=== PATIENT | female | born 1940 | race Caucasian/White ===

== ENCOUNTER 2018-06-23 00:57 | Outpatient (CLI) | payer MEDICARE, MEDICAID, SELFPAY ==
--- NOTE | 2018-06-23 12:46 | DI.US_ITS ---
SYMPTOM/DIAGNOSIS: LOCALIZED SWELLING, MASS RT LOWER LEG, R22.41 SOFT TISSUE ULTRASOUND RIGHT LOWER EXTREMITY: An area of swelling was scanned. No mass, cyst or venous varicosities are seen. There is some edema in the subcutaneous fat. IMPRESSION: Nonspecific subcutaneous edema. No focal mass or fluid collection is seen.
== END 2018-06-23 01:17 ==
PROVIDERS: PCP Family Medicine; Visit Provider Family Medicine
DX: R22.41 Localized swelling, mass and lump, right lower limb (principal); R60.9 Edema, unspecified
CPT/HCPCS: 76881

== ENCOUNTER 2019-03-01 00:43 | Outpatient (CLI) | payer MEDICARE, MEDICAID, SELFPAY ==
--- NOTE | 2019-03-01 11:00 | DI.CTLCSR_ITS ---
SYMPTOM/DIAGNOSIS: LUNG NODULE, R91.8, H/O TOBACCO ABUSE, Z87.[address] FOR LUNG CANCER SCREENING: Comparison is made with 02/11/18. The heart size is normal. The aorta is normal in diameter. Coronary artery calcifications are seen. There are underlying mild emphysematous changes. There has been interval increase in size of a previously noted lateral right upper lobe nodule, now measuring 7 by 5 mm. compared with 4 mm. in diameter on the previous exam. The right lower lobe nodule is partially obscured by linear atelectasis. No new nodules are seen. There are no infiltrates or effusions. No adenopathy is seen. There are old right posterior rib fractures. There is a new compression fracture of the inferior endplate of T 8. There are no findings to suggest underlying pathologic lesion. IMPRESSION: 1. Lung Rads, category 4A, growing 7 mm. nodule in the right upper lobe. A 3 month follow up exam is recommended. 2. New T 8 compression fracture. Lung-RAD Category: Lung RADS Category 4A- Suspicious
--- NOTE | 2019-03-01 11:45 | DI.RAD_ITS ---
SYMPTOM/DIAGNOSIS: NECK AND BACK PAIN, M54.2, FELL CERVICAL SPINE: There is no evidence of fracture or subluxation. There are degenerative disc changes and facet degenerative changes. There is no definite neural foraminal narrowing. IMPRESSION: Degenerative changes, greatest of the facet joints. THORACIC SPINE: Comparison is made with chest CT performed earlier the same day as well as chest xray dated 02/21/18. There is a compression fracture of the inferior endplate of T 8 which is new when compared with the previous chest xray. The remaining vertebral bodies are well maintained in height. There are endplate osteophytes and slight scoliosis. IMPRESSION: Moderate compression fracture of T 8 which is new when compared with previous chest xray from 2018.
== END 2019-03-01 01:03 ==
PROVIDERS: PCP Family Medicine; Visit Provider Family Medicine
DX: Z12.2 Encounter for screening for malignant neoplasm of respiratory organs (principal); R91.1 Solitary pulmonary nodule; M48.54XA Collapsed vertebra, not elsewhere classified, thoracic region, initial encounter for fracture; Z87.891 Personal history of nicotine dependence; M54.2 Cervicalgia; M54.6 Pain in thoracic spine; M47.812 Spondylosis without myelopathy or radiculopathy, cervical region; M50.30 Other cervical disc degeneration, unspecified cervical region
CPT/HCPCS: G0297; 72050; 72072

== ENCOUNTER 2019-09-02 11:37 | Outpatient (REF) | payer MEDICARE, MEDICAID, SELFPAY ==
[2019-09-02 19:25] LABS: HCT 39.5 % (36.0-46.0); HGB 12.3 g/dL (12.0-15.5); Mean Corp. HGB Concentration 31.1 g/dL (32.0-36.0); Mean Corpuscular Hemoglobin 27.5 pg (27.0-33.0); Mean Corpuscular Volume 88.2 fL (80-95); Mean Platelet Volume 10.1 fL (8.0-11.0); Platelet Count 446 x1000/uL (130-400); RBC 4.48 m/cumm (4.00-5.20); RBC Distribution Width 14.9 % (11.7-14.6); White Blood Cell Count 8.73 k/cumm (4.4-10.8)
[2019-09-02 19:36] LABS: ALT 16 U/L (14-59); AST 12 U/L (15-37); Albumin 3.7 g/dL (3.4-5.0); Alkaline Phosphatase 137 U/L (46-116); Anion Gap 8.9 mmol/L (3-11); BUN 13 mg/dL (7-18); Bilirubin, Total 0.3 mg/dL (0.2-1.0); CO2 31.1 mmol/L (21.0-32.0); CREATININE 0.64 mg/dL (0.55-1.02); Calcium 9.4 mg/dL (8.5-10.1); Chloride 100 mmol/L (98-107); Glucose 94 mg/dL (74-106); Potassium 4.8 mmol/L (3.5-5.1); Sodium 140 mmol/L (136-145); Total Protein 6.9 g/dL (6.4-8.2)
== END 2019-09-02 11:57 ==
LOC: NCHCN 11:37
PROVIDERS: PCP Family Medicine; Visit Provider Family Medicine
DX: R27.0 Ataxia, unspecified (principal); R19.7 Diarrhea, unspecified; E53.8 Deficiency of other specified B group vitamins; Z91.81 History of falling
CPT/HCPCS: 80053; 85027

== ENCOUNTER 2020-05-03 17:41 | Observation (INO) | payer MEDICARE, MEDICAID, SELFPAY ==
[2020-05-03] VITALS (29 sets, daily range): BP systolic 135–205; BP diastolic 89–120; PULSE 66–80; RESP 12–26; TEMP 36–36.5; O2SAT 92–96
--- NOTE | 2020-05-03 17:30 | RT.EKG_ITS ---
APPROVED REPORT Exam: Resting ECG Patient Location: E HR:73 bpm ECG Measurements Heart Rate 73 AXIS MS 182 P 54 QRSd 86 QRS 24 QT 360 T 34 QTc 398 Conclusion Sinus rhythm...normal P axis, V-rate 60- 99
[2020-05-03 18:09] LABS: Abs Immature Grans 0.04 10^3/uL (0.0-0.06); Absolute Basophil Count 0.08 10^3/uL (0.0-0.2); Absolute Lymphocyte Count 2.47 10^3/uL (1.2-3.4); Basophils % 0.7; Eosinophils % 2.7; HCT 41.3 % (36.0-46.0); Immature Grans % 0.4; Lymphocytes % 22.2; MCH 26.5 pg (27.0-33.0); MCHC 31.5 % (32.0-36.0); MCV 84.3 fL (80-95); MPV 10.2 fL (8.0-11.0); Monocytes % 6.7; Neutrophils % 67.3; Nucleated RBC 0 %; Platelet Count 363 10^3/uL (130-400); RDW 15.9 % (11.7-14.6); RDW-SD 49.2 fL; WBC 11.12 10^3/uL (4.4-10.8)
[2020-05-03 18:10] LABS: Absolute Monocyte Count 0.75 10^3/uL (0.1-0.8); Absolute Neutrophil Count 7.48 10^3/uL (1.2-6.7)
--- NOTE | 2020-05-03 18:20 | ED.GENADUL_ITS ---
Discharge Plan Disposition Patient Disposition: [facility] INPATIENT Discharge Details Admit Date/Time: 05/03/20 19:40 Admit Provider: Poli Gary Attending Provider: Poli Gary Primary Care Provider: Ana Dwyer V ED Provider: Nick Hall Discharge Data Discharge Date/Time-TO BE ENTERED AT DEPARTURE: 05/03/20 20:21 Medical Decision Making 1829??79-year-old female with multi-medical problems including history of COPD, coronary disease, here after episode sudden onset palpitations that lasted approximately an hour, found to be in atrial fibrillation by EMS, metoprolol 25 mg administered prehospital he and now patient has converted to sinus rhythm. She has no symptoms at this time. She feels well. Screening ECG was reviewed and interpreted by me: Please see report, patient in sinus rhythm 73 bpm, normal intervals. I reviewed prehospital ECG prior to metoprolol administration which reveals rapid, irregular, narrow complex rhythm consistent with atrial fibrillation. Patient does not have a known history of A. fib. Patient is not anticoagulated. Plan check electrolytes for any abnormalities as well as TSH for thyroid dysfunction. Patient has no leg swelling or calf tenderness. She has no change in her baseline shortness of breath and no chest pain. She is saturating well in no respiratory distress. I do not think she has a pulmonary embolism. --Patient be admitted to the hospitalist service. I called and spoke with Dr. Gary who will admit the patient. Diagnosis: Atrial fibrillation Disposition: Inpatient admission Condition: Serious Lab Data Lab results reviewed: Yes I reviewed the patient's lab results. HPI General Mode of arrival: ambulatory . Date/Time Provider Initiated Documentation: 05/03/20 17:52 . Limitations to Documentation: no limitations . Information obtained by: patient . HPI Narrative: 79-year-old female with multiple medical problems including history of COPD, coronary artery disease, here with chief complaint of palpitations. Patient notes she was having a bowel movement and stood up and developed a headache, she then went and sat down and developed palpitations. Palpitations were severe. She felt like her heart was racing. Palpitations lasted approximately an hour. EMS was called and responded and found the patient to be in rapid irregular narrow complex rhythm. She was given metoprolol 5 mg IV x2, total 10 mg, and her heart rate improved. She had no associated chest pain. No leg swelling or calf pain. Patient has never experienced similar in the past. Related Data Home Medications Medication Instructions Recorded Confirmed citalopram [Celexa] 40 mg PO DAILY 03/02/13 05/04/20 ibuprofen 800 mg PO DAILY PRN PRN 03/02/13 05/04/20 metoprolol tartrate 25 mg PO BID 03/02/13 05/03/20 gabapentin [Neurontin] 600 - 900 mg PO DIRECTED 03/09/13 05/03/20 bupropion HCl [Wellbutrin SR] 100 mg PO BID tab-cap 08/22/13 05/03/20 Prilosec 20 mg PO DAILY packet 11/04/16 05/03/20 buspirone 15 mg PO HS 11/04/16 05/03/20 furosemide [Lasix] 20 mg PO DIRECTED tab-cap 11/04/16 05/03/20 nitroglycerin [Nitrostat] 0.4 mg BUCCAL Q5 MIN PRN X3 PRN 11/04/16 05/04/20 tab-cap oxycodone-acetaminophen [Percocet] 1 tab-cap PO QID PRN PRN tab-cap 11/04/16 05/04/20 potassium chloride 10 meq PO DAILY tab-cap 11/04/16 05/03/20 B-12 Compliance 1,000 mcg IM DIRECTED 10/26/17 05/03/20 Vitamin D3 Complete 1 tab PO DIRECTED 10/26/17 05/03/20 albuterol sulfate [Ventolin HFA] 2 puff INHALATION Q4H PRN 10/26/17 05/03/20 amlodipine [Norvasc] 10 mg PO DAILY 10/26/17 05/03/20 lidocaine [Lidoderm] 1 ea TOPICAL DAILY #10 patch 10/26/17 05/03/20 Stomach Relief 262 mg PO DIRECTED 05/04/20 05/04/20 Previous Rx's Medication Instructions Recorded lidocaine [Lidoderm] 1 ea TOPICAL DAILY #10 patch 10/26/17 Allergies Allergy/AdvReac Type Severity Reaction Status Date / Time Penicillins Allergy Severe Anaphylaxsi Unverified 05/03/20 17:50 s General Stated Complaint: Palpitatns MARY: 2 Review of Systems All systems reviewed & are unremarkable except as noted in HPI and below Constitutional Constitutional: Denies fever(s) Cardiovascular Cardiovascular: Denies chest pain and Reports dyspnea (Chronic) Respiratory Respiratory: Reports dyspnea (Chronic) [facility] Medical History (Updated 05/04/20 @ 14:11 by Lydia Henry MD) Adenocarcinoma of endometrium Anxiety ASHD (arteriosclerotic heart disease) Benign hypertension Bronchitis Hyperlipidemia Other chronic pain fibromyalgia Wrist fracture, right Surgical History Hyseterectomy, Total Laparoscopic w/ BSO Replacement of total knee joint (02/07/08) right Total replacement of hip (03/26/01) left hip, right hip, right ANGELINA revision femoral stem with open reduction and internal fixation of periprosthetic fracture with cerclage cables. Total replacement of hip (09/04/08) left hip, right hip, right ANGELINA revision femoral stem with open reduction and internal fixation of periprosthetic fracture with cerclage cables. Total replacement of hip (09/11/08) left hip, right hip, right ANGELINA revision femoral stem with open reduction and internal fixation of periprosthetic fracture with cerclage cables. Social History Smoking/Tobacco Use Status: Former Tobacco Use Quit Date: 05/01/16 Alcohol Intake: never Drug use: Never Substance use type: does not use Do you feel safe at home: Yes Do you feel safe in your relationship?: Yes Exam Const General: cooperative and no acute distress HENMT Mouth: moist mucous membranes Eyes Conjunctivae: normal conjunctivae Sclera: normal sclerae Neck Neck: trachea midline, supple and no lymphadenopathy noted Resp Auscultation: clear to auscultation bilaterally, no rales, no rhonchi and no whe ezes Cardio Jugular venous pressure: no JVD Rate: regular rate and not tachycardic Rhythm: regular rhythm GI Palpation: soft, not firm, no guarding, no masses, not rigid and nontender Skin General skin exam: no rashes or lesions noted Neuro General: patient alert, patient awake and tone normal Extrem General: no pedal edema, no calf tenderness and no edema Psych Appearance: grossly normal Mental Status: mental status grossly normal Course Vital Signs Vital signs: Vital Signs Temperature 36.5 C 05/03/20 17:35 Pulse 80 05/03/20 17:35 Respiratory Rate 20 05/03/20 17:35 Blood Pressure 205/115 H 05/03/20 17:35 Pulse Oximetry 93 L 05/03/20 17:35 Temperature 36.5 C 05/03/20 17:35 Pulse 69 05/03/20 18:00 Pulse 71 05/03/20 18:01 Respiratory Rate 17 05/03/20 18:01 Respiratory Effort 05/03/20 17:44 Blood Pressure 156/89 H 05/03/20 18:00 Blood Pressure Mean 107 05/03/20 18:00 Pulse Oximetry 94 L 05/03/20 18:01 Oxygen Delivery Method Room Air 05/03/20 17:35 Oxygen Flow Rate 0 05/03/20 17:35 Pain Level 0 05/03/20 17:35 Lab/Test Results Lab/Test Results: Laboratory Tests Range/Units 05/03/20 17:40 WBC (4.4-10.8) 10^3/uL 11.12 H RBC (3.93-5.22) 10^6/uL 4.90 Hgb (11.2-15.7) g/dL 13.0 Hct (36.0-46.0) % 41.3 MCV (80-95) fL 84.3 MCH (27.0-33.0) pg 26.5 L MCHC (32.0-36.0) % 31.5 L RDW (11.7-14.6) % 15.9 H Plt Count (130-400) 10^3/uL 363 MPV (8.0-11.0) fL 10.2 Immature Gran % 0.4 Neutrophils % 67.3 Lymphocytes % 22.2 Monocytes % 6.7 Eosinophils % 2.7 Basophils % 0.7 Nucleated RBC % % 0 Absolute Neutrophils (1.2-6.7) 10^3/uL 7.48 H Absolute Lymphocytes (1.2-3.4) 10^3/uL 2.47 Absolute Monocytes (0.1-0.8) 10^3/uL 0.75 Absolute Eosinophils (0.0-0.7) 10^3/uL 0.30 Absolute Basophils (0.0-0.2) 10^3/uL 0.08
[2020-05-03 18:36] LABS: ALT 15 U/L (14-59); AST 11 U/L (15-37); Albumin 3.6 g/dL (3.4-5.0); Alkaline Phosphatase 135 U/L (46-116); Anion Gap 9.1 mmol/L (3-11); BUN 9 mg/dL (7-18); Bilirubin, Total 0.3 mg/dL (0.2-1.0); CO2 28.9 mmol/L (21.0-32.0); CREATININE 0.69 mg/dL (0.55-1.02); Calcium 9.2 mg/dL (8.5-10.1); Chloride 101 mmol/L (98-107); Glucose 98 mg/dL (74-106); Magnesium 1.7 mg/dL (1.8-2.4); Potassium 3.4 mmol/L (3.5-5.1); Sodium 139 mmol/L (136-145); TSH (W/Ref FT4) 0.51 uIU/mL (0.36-3.74); Total Protein 7.1 g/dL (6.4-8.2); Troponin I < 0.05 ng/mL (<0.06)
[2020-05-03] MEDS: Potassium Chloride 20 MEQ TABCR PO (19:25)
[2020-05-03] MEDS: MAGNESIUM SULFATE 1 GM/100 ML BAG IVPB (19:26)
--- NOTE | 2020-05-03 19:26 | HPE_ITS ---
Date of service: 05/03/20 Time of Service: 19:26 Assessment and Plan Assessment and plan (1) Atrial fibrillation: Status: Chronic Assessment and plan: PAF. Unclear if this is to be considered a fixed le joselito or perhaps secondary to beta jordan rebound, with possible supporting role of slight electrolyte deficiencies. For now will resume usual dose Lopressor, trend troponins and check cardiac U/S. Mg and K are being replenished in ER. As to question of anticoagulation: given possibility that this may have been simply due to medication non-compliance I think it would be reasonable to defer any advice regarding anticoagulation until we have further information (troponins, ECHO) and a chance to observe for any recurrence. Nominally with [id number] of 5 she would be candidate but in this regard it should be noted that patient has a strong aversion to anticoagulation, so this will need to be factored in ultimately (her concern is about falling/bleeding). Reviewed ADs, requests DNR. History of Present Illness History of Present Illness Chief Complaint: palpitations Narrative: 79 female with h/o HTN, CAD. Today noted sudden onset palpitations. EMS noted AF/RVR. Given Lopressor 10 iv in field and converted to NSR -- with resolution of palpitations. Of n ote patient is on Lopressor 25 bid for JTN but she says she did not take this morning's dose. In RR findings of note for TSH 0.51, K 3.4, Mg 1.7, neg troponin and normal EKG. No prior such episodes, no associated CP. Admitted for further management. Review of Systems All systems reviewed & are unremarkable except as noted in HPI and below PFSH Medical History Adenocarcinoma of endometrium Anxiety Benign hypertension Bronchitis Hyperlipidemia Other chronic pain fibromyalgia Wrist fracture, right Surgical History Hyseterectomy, Total Laparoscopic w/ BSO Replacement of total knee joint (02/07/08) right Total replacement of hip (03/26/01) left hip, right hip, right ANGELINA revision femoral stem with open reduction and internal fixation of periprosthetic fracture with cerclage cables. Total replacement of hip (09/04/08) left hip, right hip, right ANGELINA revision femoral stem with open reduction and internal fixation of periprosthetic fracture with cerclage cables. Total replacement of hip (09/11/08) left hip, right hip, right ANGELINA revision femoral stem with open reduction and internal fixation of periprosthetic fracture with cerclage cables. Social History Smoking/Tobacco Use Status: Former Tobacco Use Quit Date: 05/01/16 Alcohol Intake: never Drug use: Never Substance use type: does not use Do you feel safe at home: Yes Do you feel safe in your relationship?: Yes Meds Home Medications and Allergies Home Medications Medication Instructions Recorded Confirmed Type citalopram [Celexa] 60 mg PO DAILY 03/02/13 05/03/20 History ibuprofen 800 mg PO TID PRN PRN 03/02/13 05/03/20 History metoprolol tartrate 25 mg PO BID 03/02/13 05/03/20 History gabapentin [Neurontin] 600 - 900 mg PO DIRECTED 03/09/13 05/03/20 History bupropion HCl [Wellbutrin SR] 100 mg PO BID tab-cap 08/22/13 05/03/20 History Prilosec 20 mg PO DAILY packet 11/04/16 05/03/20 History buspirone 15 mg PO HS 11/04/16 05/03/20 History furosemide [Lasix] 20 mg PO DIRECTED tab-cap 11/04/16 05/03/20 History nitroglycerin [Nitrostat] 0.4 mg BUCCAL ONCE tab-cap 11/04/16 05/03/20 History oxycodone-acetaminophen [Percocet] 1 tab-cap PO Q4H PRN tab-cap 11/04/16 05/03/20 History potassium chloride 10 meq PO DAILY tab-cap 11/04/16 05/03/20 History B-12 Compliance 1,000 mcg IM DIRECTED 10/26/17 05/03/20 History Vitamin D3 Complete 1 tab PO DIRECTED 10/26/17 05/03/20 History albuterol sulfate [Ventolin HFA] 2 puff INHALATION Q4H PRN 10/26/17 05/03/20 History amlodipine [Norvasc] 10 mg PO DAILY 10/26/17 05/03/20 History lidocaine [Lidoderm] 1 ea TOPICAL DAILY #10 patch 10/26/17 05/03/20 Rx Allergies Allergy/AdvReac Type Severity Reaction Status Date / Time Penicillins Allergy Severe Anaphylaxsi Unverified 05/03/20 17:50 s Exam Narrative Exam Narrative: 156/89, 71, 36.5, 17, 94% RA. HEENT atraumatic; neck supple; lungs diminished; heart RRR w/o MRG; abdomen soft and NT; extremitiesd w/o edema, pulses 2+/=; neuro Ox3, moves all 4s Results Labs Result diagrams: 05/03/20 17:40 05/03/20 17:40 Labs: Laboratory Results - last 24 hr 05/03/20 05/03/20 17:40 17:40 WBC 11.12 H RBC 4.90 Hgb 13.0 Hct 41.3 MCV 84.3 MCH 26.5 L MCHC 31.5 L RDW 15.9 H Plt Count 363 MPV 10.2 Immature Gran % 0.4 Neutrophils % 67.3 Lymphocytes % 22.2 Monocytes % 6.7 Eosinophils % 2.7 Basophils % 0.7 Nucleated RBC % 0 Absolute Neutrophils 7.48 H Absolute Lymphocytes 2.47 Absolute Monocytes 0.75 Absolute Eosinophils 0.30 Absolute Basophils 0.08 Sodium 139 Potassium 3.4 L Chloride 101 Carbon Dioxide 28.9 Anion Gap 9.1 BUN 9 Creatinine 0.69 Estimated GFR/1.73 m2 >= 60.00 Glucose 98 Calcium 9.2 Magnesium 1.7 L Total Bilirubin 0.3 AST 11 L ALT 15 Alkaline Phosphatase 135 H Troponin I < 0.05 Total Protein 7.1 Albumin 3.6 TSH 0.51 Last Vital Signs Temp 36.5 C 05/03/20 17:35 Pulse 69 05/03/20 18:00 Resp 17 05/03/20 18:01 BP 156/89 H 05/03/20 18:00 Pulse Ox 94 L 05/03/20 18:01 COVID-19 Screening Have you,or household,traveled outside [place] in last 14 days?: No Had IN PERSON contact w/suspected or confirmed C-19 person: No
[2020-05-03 21:21] LABS: Troponin I < 0.05 ng/mL (<0.06)
[2020-05-03] MEDS: buPROPion-CR 100 MG TABCR PO (21:21)
[2020-05-03] MEDS: Gabapentin 300 MG CAP 600 MG PO (21:21)
[2020-05-03] MEDS: busPIRone 15 MG TAB PO (21:23)
[2020-05-03] MEDS: Metoprolol 25 MG TAB PO (21:23)
--- NOTE | 2020-05-04 | DI.US_ITS ---
APPROVED REPORT EXAM: Comprehensive 2D, Doppler, and color-flow Echocardiogram Patient Location: In-Patient Room/Bed: 209 Release Engineer: Nicole Villasenor RDCS (AE) Indications: PAF Other Information Technically limited study due to inability to position patient. Conclusion Normal left ventricular wall thickness and chamber size. Estimated ejection fraction is 55 to 60%. There are no segmental wall motion abnormalities Normal right ventricular size and function Normal left and right atrial size There are no structural or hemodynamically significant valvular abnormalities Trivial pericardial effusion Wall motion Left Ventricle The left ventricle is normal size. The left ventricular systolic function is normal. The left ventric ular ejection fraction is within the normal range. There is normal left ventricular wall thickness. T here is normal LV segmental wall motion. There is no ventricular septal defect visualized. LVEF is 55 -60%. Right Ventricle The right ventricle is normal size. The right ventricular systolic function is normal. The RVSP is 24 .1 mmHg. Atria The left atrium size is normal. The right atrium size is normal. The interatrial septum is intact wit h no evidence for an atrial septal defect. Aortic Valve The aortic valve is normal in structure. Aortic valve is trileaflet. There is no aortic valvular sten osis. No aortic regurgitation is present. Mitral Valve The mitral valve is normal in structure. No evidence of mitral valve stenosis. Trace mitral regurgita tion. Tricuspid Valve The tricuspid valve is normal in structure. There is no tricuspid valve stenosis. Trace to mild tricu spid regurgitation. Pulmonic Valve The pulmonary valve is normal in structure. There is no pulmonic valvular stenosis. There is no pulmo dania valvular regurgitation. Great Vessels The aortic root is normal in size. The ascending aorta is normal in size. Ascending aorta is not well visualized. Aortic arch is normal in caliber. IVC is normal in size and collapses >50% with inspirat ion. Pericardium Trace pericardial effusion. 2D Dimensions Ao Root d 2.88 cm F: 2.7 - 3.3 LV Vol A2C d MOD 94.3 mL RA Area A4C 15.56 cm2 LV Vol A4C d MOD 94.3 mL RA Vol/ BSA A4C s A-L 23.0 mL/m2 LV EF A4C MOD 53.9 % LVEF (Lund's) 55.36 % F: 54 - 74 LV EF A2C MOD 55.4 % LV Volume 76.07 mL F: 46 - 106 LV EF Biplane MOD 55.4 % LV Volume Index 42.26 mL/m2 F: 29 - 61 SV 54.17 mL LV Vol Biplane MOD 97.8 mL SV Index 30.06 mL/m2 M-Mode TAPSE 2.08 cm (M/F) >1.7 LV Diastology MV E' medial 0.071 (>0.07 m/s) E/A Ratio 0.6 LV E/e MED 7.30 (<14) MV E Vmax 0.52 (0.4-1.3 m/s) MV E' lateral 0.073 (>0.1 m/s) MV A Vmax 0.85 (0.4-1.3 m/s) LV E/e LAT 7.10 (<14) MV E/A Ratio 0.58 MV E/E' medial 7.34 MV E/E' lateral 7.10 Aortic Valve LVOT Area 3.08 cm2 AoV Area Vmax 2.59 cm2 LVOT Vmax 1.52 m/s AoV Area/ BSA (Vmax) 1.43 cm2/m2 LVOT Mean Melquiades. 0.94 m/s ANKIT Mean Melquiades. 2.25 cm2 LVOT Peak Grad 9.2 mmHg ANKIT Mean Melquiades. Index 1.25 cm2/m2 LVOT Mean Grad 4.2 mmHg LVOT VTI 0.277 m LVOT Diam s 1.95 cm AoV Vmax 1.81 m/s Velocity Ratio 0.83 AoV Mean Melquiades. 1.28 m/s AoV Peak Grad 13.1 mmHg LVOT SV 85.28 mL AoV Mean Grad 7.2 mmHg AoV VTI 0.318 m AoV Area VTI 2.68 cm2 AoV Area/ BSA (VTI) 1.49 cm/m2 Mitral Valve MV DT 313 (160-240 msec) MV PHT 91 msec MV Area PHT 2.42 cm2 Pulmonary Valve PV Vmax 1.12 (0.5-1.5 m/s) RVOT Peak Gr. 0.98 mmHg PV Peak Grad 5.1 mmHg RVOT Mean Gr. 0.50 mmHg PV Mean Grad 2.7 mmHg RVOT VTI 0.120 m PV VTI 0.210 m RVOT Vmax 0.49 m/s Tricuspid Valve TR Peak Grad 21.1 mmHg TR Vmax 2.30 m/s RA Pressure 3.00 mmHg RVSP (TR) 24.1 mmHg
[2020-05-04 03:20] VITALS: BP 171/101; PULSE 60; RESP 16; TEMP 35.4; O2SAT 91
[2020-05-04 07:22] LABS: Troponin I < 0.05 ng/mL (<0.06)
[2020-05-04 08:40] VITALS: BP 136/89; PULSE 60; RESP 19; TEMP 36.5; O2SAT 92
[2020-05-04] MEDS: Metoprolol 25 MG TAB PO (08:41)
[2020-05-04] MEDS: amLODIPine 10 MG TAB PO (08:41)
[2020-05-04] MEDS: Potassium Chloride 10 MEQ CAPCR PO (08:41)
[2020-05-04] MEDS: Omeprazole 20 MG CAPCR PO (08:41)
[2020-05-04] MEDS: buPROPion-CR 100 MG TABCR PO (08:41)
[2020-05-04] MEDS: Normal Saline Flush 10 ML SYR IVP (09:54)
[2020-05-04] MEDS: Citalopram 20 MG TAB 40 MG PO (09:54)
[2020-05-04] MEDS: Furosemide 20 MG/2 ML VIAL IVP (09:54)
[2020-05-04 10:46] LABS: Abs Immature Grans 0.03 10^3/uL (0.0-0.06); Absolute Basophil Count 0.07 10^3/uL (0.0-0.2); Absolute Eosinophil Count 0.23 10^3/uL (0.0-0.7); Absolute Lymphocyte Count 1.68 10^3/uL (1.2-3.4); Absolute Monocyte Count 0.58 10^3/uL (0.1-0.8); Absolute Neutrophil Count 6.95 10^3/uL (1.2-6.7); Basophils % 0.7; Eosinophils % 2.4; HCT 39.8 % (36.0-46.0); HGB 12.6 g/dL (11.2-15.7); Immature Grans % 0.3; Lymphocytes % 17.6; MCH 26.7 pg (27.0-33.0); MCHC 31.7 % (32.0-36.0); MCV 84.3 fL (80-95); MPV 9.9 fL (8.0-11.0); Monocytes % 6.1; Neutrophils % 72.9; Nucleated RBC 0 %; Platelet Count 343 10^3/uL (130-400); RBC 4.72 10^6/uL (3.93-5.22); RDW 15.9 % (11.7-14.6); RDW-SD 49.3 fL; WBC 9.54 10^3/uL (4.4-10.8)
[2020-05-04 10:54] LABS: Anion Gap 7.3 mmol/L (3-11); BUN 11 mg/dL (7-18); CO2 28.7 mmol/L (21.0-32.0); CREATININE 0.72 mg/dL (0.55-1.02); Calcium 9.1 mg/dL (8.5-10.1); Chloride 102 mmol/L (98-107); Glucose 135 mg/dL (74-106); Magnesium 1.9 mg/dL (1.8-2.4); Potassium 3.8 mmol/L (3.5-5.1); Sodium 138 mmol/L (136-145)
[2020-05-04 12:10] VITALS: BP 120/82; PULSE 63; RESP 16; TEMP 35.9; O2SAT 95
--- NOTE | 2020-05-04 14:00 | DSE_ITS ---
Date of service: 05/04/20 Time of Service: 14:00 DS: Diagnosis Discharge Diagnosis (1) Lone atrial fibrillation: Status: Acute Asessment and Plan: being sent home not on anticoagulation but with extended heart monitoring. (2) Hypertension: Status: Chronic (3) Dyslipidemia: Status: Chronic (4) Frequent headaches: Status: Chronic Asessment and Plan: Lyme and tick panel pending at the time of discharge (5) GERD (gastroesophageal reflux disease): Status: Chronic (6) COPD (chronic obstructive pulmonary disease): Status: Chronic Asessment and Plan: not in acute exacerbation (7) ASHD (arteriosclerotic heart disease): Status: Chronic Asessment and Plan: H/o NSTEMI. No evidence of ACS on this admission. Discharge Plan Disposition Patient Disposition: HOME Condition: Good Discharge Details Chief Complaint: Palpitatns Reason For Visit: AFIB Admit Date/Time: 05/03/20 19:40 Admit Provider: Poli Gary Attending Provider: Poli Gary Primary Care Provider: Ana Dwyer V ED Provider: Nick Hall Hospital Course Hospital Course: Ms George is a 79 year old female with PMHx of HTN, on lopressor, non-oxygen dependent COPD, dislipidemia, GERD, who was a patient on [facility] hospitalist service from 05/03/2020 until 05/04/2020 for a lone episode of Afib. The patient had missed a dose of her metoprolol at home and felt palpitations. She converted to NSR with IV lopressor in ambulance en route to the hospital and had remained in sinus arrhythmia for the remainder of her hospital stay. She underwent an echocardiogram, which revealed LVEF of 55-60%, no segmental wall motion abnormalities, and was otherwise normal. The patient feels back to normal. She ruled out for ACS. Her ambulatory pulse ox testing showed O2 sats >90% on room air. She is medically ready for discharge home on her prior to admission dose of lopressor with a 30 day cardiac event recorder. She is not being initiated on anticoagulation at this time as this was her first and only (so far) bout of Afib and in the setting of possible beta jordan withdrawal. However, should the extended cardiac monitoring demonstrate recurrence of Afib, anticoagulation should be considered due to her CHADSVASC score of 5. The patient also expresses that she has chronic headaches. We are obtaining a Lyme/tick panel prior to her discharge which should be followed up by her PCP. The patient should follow up with her PCP in 1-2 weeks. Home Meds and New Rx's Prescriptions: Continued bupropion HCl [Wellbutrin SR] 100 MG tablet extended release 12 hr 100 mg PO BID RF: 0 potassium chloride 10 MEQ capsule, extended release 10 meq PO DAILY RF: 0 oxycodone-acetaminophen [Percocet] 1 EACH tablet 1 tab-cap PO QID PRN PRNRF: 0 nitroglycerin [Nitrostat] 0.4 MG tablet, sublingual 0.4 mg Buccal Q5 MIN PRN X3 PRNRF: 0 furosemide [Lasix] 20 MG tablet 20 mg PO DIRECTED RF: 0 buspirone 15 MG tablet 15 mg PO HS RF: 0 Prilosec 10 MG susp,delayed release for recon 20 mg PO DAILY RF: 0 citalopram [Celexa] 40 MG tablet 40 mg PO DAILY RF: 0 ibuprofen 800 MG tablet 800 mg PO DAILY PRN PRNRF: 0 metoprolol tartrate 25 MG tablet 25 mg PO BID RF: 0 gabapentin [Neurontin] 300 MG capsule 600 - 900 mg PO DIRECTED RF: 0 Stomach Relief 262 mg tablet 262 mg PO DIRECTED RF: 0 Vitamin D3 Complete 1 EACH tablet 1 tab PO DIRECTED RF: 0 amlodipine [Norvasc] 10 MG tablet 10 mg PO DAILY RF: 0 albuterol sulfate [Ventolin HFA] 8 GM HFA aerosol inhaler 2 puff Inhalation Q4H PRNRF: 0 B-12 Compliance 1,000 MCG/ML kit 1,000 mcg IM DIRECTED RF: 0 lidocaine [Lidoderm] 1 PATCH adhesive patch,medicated 1 ea Topical DAILY Qty: 10 RF: 0 Discharge Instructions Instructions: A-fib (Atrial Fibrillation) (DC) Additional Instructions: Return to the hospital with any fever, bleeding, chest pain, shortness of breath. Your COVID-19 testing is still not back at the time of your discharge. Please, follow up with your PCP for your results. Wear a mask! Referrals: Ana Dwyer MD [Primary Care Provider] - Activity:: Activity as Tolerated Equipment/Supplies:: cardiac event recorder Diet:: As Tolerated Discharge Orders Discharge Orders: Discharge Order (Routine); Ordered 05/04/20 Ordered By: Lydia Henry Other Ambulatory Orders: Cardiac Event Recorder (Outpt) (ONCE) Timeframe: [id number] Facility: [facility] - Location: Respiratory Therapy Ordered By: Lydia Henry DS: Summary Status at Discharge Functional status at discharge: uses cane/walker Overall status at discharge: patient is back to baseline Mental Status: mental status grossly normal Speech and Movement: speech and movement normal Mood: congruent mood Affect: normal affect Exam Narrative Exam Narrative: General: Very pleasant elderly female, A&Ox3, looks well HEENT: EOMI, MMM Heart: RRR, no m/r/g Lungs: CTAB Abdomen: soft, nonender, nondistended Extremities: trace edema BLEs, no c/c. Edema is at patient's baseline, per patient. Psych Mental Status: mental status grossly normal Speech and Movement: speech and movement normal Mood: congruent mood Affect: normal affect DS: Data Vitals/I&O Vitals and I&O: Vital Signs Temperature 35.9 C L 05/04/20 12:10 Temperature Source Tympanic 05/04/20 12:10 Pulse 63 05/04/20 12:10 Pulse Rhythm Regular 05/04/20 03:54 Pulse 72 05/03/20 19:50 Respiratory Rate 16 05/04/20 12:10 Respiratory Effort Non-Labored 05/04/20 03:54 Respiratory Depth Normal 05/04/20 03:54 Respiratory Pattern Normal 05/04/20 03:54 Blood Pressure 120/82 05/04/20 12:10 Blood Pressure Mean 114 05/03/20 19:49 Pulse Oximetry 95 05/04/20 12:10 Oxygen Delivery Method Room Air 05/04/20 12:10 Oxygen Flow Rate 0 05/04/20 12:10 Pain Level 0 05/04/20 12:10 Comment 05/04/20 11:48 Intake & Output 05/03/20 05/04/20 05/04/20 23:59 11:59 23:59 Intake Total 100 / 100 Output Total 200 / 200 400 / 400 Balance -100 / -100 -400 / -400 Weight 81.2 kg Intake: IV 100 / 100 Output: Urine 200 / 200 400 / 400 Other: Urine Color Yellow Urine Appearance Clear Clear Urine Odor Normal Comment Void x1 in the toilet. Pt. missed the hat; RN unable to determine urine amount. Stool Size Small Stool Characteristics Liquid Voiding Methods Toilet Toilet Data Completed and Pending Completed studies during hospitalization [Text1]: Echo; Normal left ventricular wall thickness and chamber size. Estimated ejection fraction is 55 to 60%. There are no segmental wall motion abnormalities Normal right ventricular size and function Normal left and right atrial size There are no structural or hemodynamically significant valvular abnormalities Trivial pericardial effusion Pending studies at discharge: COVID-19 PCR Lyme/tick panel Labs on day of discharge: Labs from last 24 hours 05/04/20 05/04/20 05/04/20 10:37 10:37 06:17 WBC 9.54 RBC 4.72 Hgb 12.6 Hct 39.8 MCV 84.3 MCH 26.7 L MCHC 31.7 L RDW 15.9 H Plt Count 343 MPV 9.9 Immature Gran % 0.3 Neutrophils % 72.9 Lymphocytes % 17.6 Monocytes % 6.1 Eosinophils % 2.4 Basophils % 0.7 Nucleated RBC % 0 Absolute Neutrophils 6.95 H Absolute Lymphocytes 1.68 Absolute Monocytes 0.58 Absolute Eosinophils 0.23 Absolute Basophils 0.07 Sodium 138 Potassium 3.8 Chloride 102 Carbon Dioxide 28.7 Anion Gap 7.3 BUN 11 Creatinine 0.72 Estimated GFR/1.73 m2 >= 60.00 Glucose 135 H Calcium 9.1 Magnesium 1.9 Total Bilirubin AST ALT Alkaline Phosphatase Troponin I < 0.05 Total Protein Albumin TSH [facility] Ref Test Perform Site 05/03/20 05/03/20 05/03/20 20:57 19:35 17:40 WBC 11.12 H RBC 4.90 Hgb 13.0 Hct 41.3 MCV 84.3 MCH 26.5 L MCHC 31.5 L RDW 15.9 H Plt Count 363 MPV 10.2 Immature Gran % 0.4 Neutrophils % 67.3 Lymphocytes % 22.2 Monocytes % 6.7 Eosinophils % 2.7 Basophils % 0.7 Nucleated RBC % 0 Absolute Neutrophils 7.48 H Absolute Lymphocytes 2.47 Absolute Monocytes 0.75 Absolute Eosinophils 0.30 Absolute Basophils 0.08 Sodium Potassium Chloride Carbon Dioxide Anion Gap BUN Creatinine Estimated GFR/1.73 m2 Glucose Calcium Magnesium Total Bilirubin AST ALT Alkaline Phosphatase Troponin I < 0.05 Total Protein Albumin TSH COVID-19 PCR Pending Nasopharyn COVID-19 PCR Pending Ref Test Perform Site Pending 05/03/20 17:40 WBC RBC Hgb Hct MCV MCH MCHC RDW Plt Count MPV Immature Gran % Neutrophils % Lymphocytes % Monocytes % Eosinophils % Basophils % Nucleated RBC % Absolute Neutrophils Absolute Lymphocytes Absolute Monocytes Absolute Eosinophils Absolute Basophils Sodium 139 Potassium 3.4 L Chloride 101 Carbon Dioxide 28.9 Anion Gap 9.1 BUN 9 Creatinine 0.69 Estimated GFR/1.73 m2 >= 60.00 Glucose 98 Calcium 9.2 Magnesium 1.7 L Total Bilirubin 0.3 AST 11 L ALT 15 Alkaline Phosphatase 135 H Troponin I < 0.05 Total Protein 7.1 Albumin 3.6 TSH 0.51 COVID-19 PCR Nasopharyn COVID-19 PCR Ref Test Perform Site [facility] Medical History (Updated 05/04/20 @ 14:11 by Lydia Henry MD) Adenocarcinoma of endometrium Anxiety ASHD (arteriosclerotic heart disease) (Chronic) Benign hypertension Bronchitis Hyperlipidemia Other chronic pain fibromyalgia Wrist fracture, right Surgical History Hyseterectomy, Total Laparoscopic w/ BSO Replacement of total knee joint (02/07/08) right Total replacement of hip (03/26/01) left hip, right hip, right ANGELINA revision femoral stem with open reduction and internal fixation of periprosthetic fracture with cerclage cables. Total replacement of hip (09/04/08) left hip, right hip, right ANGELINA revision femoral stem with open reduction and internal fixation of periprosthetic fracture with cerclage cables. Total replacement of hip (09/11/08) left hip, right hip, right ANGELINA revision femoral stem with open reduction and internal fixation of periprosthetic fracture with cerclage cables. Social History Smoking/Tobacco Use Status: Former Tobacco Use Quit Date: 05/01/16 Alcohol Intake: never Drug use: Never Substance use type: does not use Do you feel safe at home: Yes Do you feel safe in your relationship?: Yes
[2020-05-04 14:25] LABS: COVID-19 RT-PCR UVMMC Result Negative (Negative)
[2020-05-04 14:38] VITALS: PULSE 68; PULSE 73; RESP 14; RESP 16; O2SAT 91; O2SAT 94; O2SAT 95
[2020-05-07 12:03] LABS: Lyme Ab w Rflx to Lyme Confirm Negative (Negative)
[2020-05-08 19:40] LABS: Anaplasma phagocytophilum Negative (Negative); B. miyamotoi PCR Negative (Negative); Babesia divergens/MO-1 Negative (Negative); Babesia duncani Negative (Negative); Babesia microti Negative (Negative); Ehrlichia chaffeensis Negative (Negative); Ehrlichia ewingii/canis Negative (Negative); Ehrlichia muris eauclairensis Negative (Negative)
--- NOTE | 2020-05-18 12:28 | W.CARDEVENT ---
Date of service: 05/18/20 Time of Service: 12:28 Cardiac Event Recorder Referring Provider:: biju Indications:: Afib Cardiac Event Note: This is a 30-day event recorder. ?Baseline rhythm was sinus at a rate of 80 bpm. ?Patient had no episodes of atrial fibrillation, no episodes of ventricular tachycardia or evidence of high degree heart block. ?There were no pauses greater than 3 seconds. ?There were 2 triggered events which were both sinus arrhythmia.
== END 2020-05-04 16:29 | disposition home or self-care (01) ==
LOC: ER 18:34 → MS 20:37
PROVIDERS: Internal Medicine; Admitting Provider General Practice; Emergency Provider Student in an Organized Health Care Education/Training Program; PCP Family Medicine; Visit Provider General Practice
DX: I48.91 Unspecified atrial fibrillation (principal); I25.10 Atherosclerotic heart disease of native coronary artery without angina pectoris; I10 Essential (primary) hypertension; Z79.899 Other long term (current) drug therapy; F41.9 Anxiety disorder, unspecified; Z11.59 Encounter for screening for other viral diseases; M79.7 Fibromyalgia; E78.5 Hyperlipidemia, unspecified; K21.9 Gastro-esophageal reflux disease without esophagitis; J44.9 Chronic obstructive pulmonary disease, unspecified; I25.2 Old myocardial infarction; R51 Headache
CPT/HCPCS: 36415; 80048; 80053; 87798; 93005; 93270; 93306; 96365; 99217; 99222; 99285; U0003; 83735; 84443; 84484; 85025; 86618; 93010; 99218; G0378; J1941; J3475

== ENCOUNTER 2020-05-18 12:28 | Outpatient (CLI) | payer MEDICARE, MEDICAID, SELFPAY | END 2020-05-18 12:48 | PROVIDERS: PCP Family Medicine; Referring Provider Internal Medicine; Visit Provider Internal Medicine Cardiovascular Disease | DX: I48.91 Unspecified atrial fibrillation (principal) | CPT/HCPCS: 93272 ==

== ENCOUNTER 2021-01-30 10:43 | Emergency (ER) | payer MEDICARE, MEDICAID, SELFPAY ==
[2021-01-30 10:53] VITALS: BP 152/85; PULSE 74; RESP 18; TEMP 36.4; O2SAT 94
--- NOTE | 2021-01-30 11:12 | W.ED.GENAD ---
Discharge Plan Disposition Patient Disposition: HOME Condition: Stable Discharge Details Clinical Impression: Sprain of left upper arm Primary Care Provider: Ana Dwyer V ED Provider: Arianne Iglesias Home Meds and New Rx's Prescriptions: Continued bupropion HCl [Wellbutrin SR] 100 MG tablet extended release 12 hr 100 mg PO BID RF: 0 potassium chloride 10 MEQ capsule, extended release 10 meq PO DAILY RF: 0 oxycodone-acetaminophen [Percocet] 1 EACH tablet 1 tab-cap PO QID PRN PRNRF: 0 nitroglycerin [Nitrostat] 0.4 MG tablet, sublingual 0.4 mg Buccal Q5 MIN PRN X3 PRNRF: 0 furosemide [Lasix] 20 MG tablet 20 mg PO DIRECTED RF: 0 buspirone 15 MG tablet 15 mg PO HS RF: 0 Prilosec 10 MG susp,delayed release for recon 20 mg PO DAILY RF: 0 citalopram [Celexa] 40 MG tablet 40 mg PO DAILY RF: 0 ibuprofen 800 MG tablet 800 mg PO DAILY PRN PRNRF: 0 metoprolol tartrate 25 MG tablet 25 mg PO BID RF: 0 gabapentin [Neurontin] 300 MG capsule 600 - 900 mg PO DIRECTED RF: 0 Stomach Relief 262 mg tablet 262 mg PO DIRECTED RF: 0 Vitamin D3 Complete 1 EACH tablet 1 tab PO DIRECTED RF: 0 amlodipine [Norvasc] 10 MG tablet 10 mg PO DAILY RF: 0 albuterol sulfate [Ventolin HFA] 8 GM HFA aerosol inhaler 2 puff Inhalation Q4H PRNRF: 0 B-12 Compliance 1,000 MCG/ML kit 1,000 mcg IM DIRECTED RF: 0 lidocaine [Lidoderm] 1 PATCH adhesive patch,medicated 1 ea Topical DAILY Qty: 10 RF: 0 Discharge Instructions Instructions: Contusion in Adults (ED), Shoulder Sprain (ED) Additional Instructions: At this time x-ray showed no bony abnormality of your left upper arm or shoulder. He did have some Osteopenia. Follow up with primary care provider in 3-5 days. Return to ED sooner if any worsening or concerns. Increase oral fluids. Please take Tylenol with food every 4-6 hours as needed for pain and swelling. Rest, ice, compression, elevation. You may apply lidocaine patches once a day as needed. Referrals: Ana Dwyer MD [Primary Care Provider] - Medical Decision Making 80-year-old female presents to the ER with chief complaint of left upper arm pain status post a fall. Patient states that she slipped off a chair her arm stated upon the chair she fell on the ground. She denies any neck back or other injuries. She is complaining of distal humerus tenderness with a small bruise noted. She not take any medications prior to arrival. She does have a past medical history of arthrosclerotic heart disease, A. fib, NSTEMI, coronary artery disease, hypertension, chronic pain, COPD, fibromyalgia. X-rays ordered and Tylenol p.o. On initial exam there is no obvious deformity no significant swelling EXAM: XR HUMERUS LT CLINICAL HISTORY: Fall, distal humerus pain, R/O fracture. TECHNIQUE: 2D digital imaging was performed. COMPARISON: No exams were available for comparison FINDINGS: BONES: No acute fracture is present. No bony destructive lesion is seen. Visualized portion of elbow and shoulder joints are unremarkable. Osteopenia. There is an old left rib fracture deformity. SOFT TISSUE: Normal. IMPRESSION: No acute fracture or dislocation. Discussed x-ray results with patient and family who is at bedside. Confirmed that there is no chest tenderness with palpation, patient is now moving arm without difficulty upon discussion of the x-ray results. Discussed home care patient is requesting lidocaine patch. Patient and family verbalized understanding. HPI General Mode of arrival: ambulatory. Date/Time Provider Initiated Documentation: 01/30/21 11:02. Limitations to Documentation: no limitations. Information obtained by: patient. HPI Narrative: 80-year-old female presents to the ER with chief complaint of left upper arm pain status post a fall. Patient states that she slipped off a chair her arm stated upon the chair she fell on the ground. She denies any neck back or other injuries. She is complaining of distal humerus tenderness with a small bruise noted. She not take any medications prior to arrival. She does have a past medical history of arthrosclerotic heart disease, A. fib, NSTEMI, coronary artery disease, hypertension, chronic pain, COPD fibromyalgia. Related Data Home Medications Medication Instructions Recorded Confirmed citalopram [Celexa] 40 mg PO DAILY 03/02/13 01/30/21 ibuprofen 800 mg PO DAILY PRN PRN 03/02/13 01/30/21 metoprolol tartrate 25 mg PO BID 03/02/13 01/30/21 gabapentin [Neurontin] 600 - 900 mg PO DIRECTED 03/09/13 01/30/21 bupropion HCl [Wellbutrin SR] 100 mg PO BID tab-cap 08/22/13 01/30/21 Prilosec 20 mg PO DAILY packet 11/04/16 01/30/21 buspirone 15 mg PO HS 11/04/16 01/30/21 furosemide [Lasix] 20 mg PO DIRECTED tab-cap 11/04/16 01/30/21 nitroglycerin [Nitrostat] 0.4 mg BUCCAL Q5 MIN PRN X3 PRN 11/04/16 01/30/21 tab-cap oxycodone-acetaminophen [Percocet] 1 tab-cap PO QID PRN PRN tab-cap 11/04/16 01/30/21 potassium chloride 10 meq PO DAILY tab-cap 11/04/16 01/30/21 B-12 Compliance 1,000 mcg IM DIRECTED 10/26/17 01/30/21 Vitamin D3 Complete 1 tab PO DIRECTED 10/26/17 01/30/21 albuterol sulfate [Ventolin HFA] 2 puff INHALATION Q4H PRN 10/26/17 01/30/21 amlodipine [Norvasc] 10 mg PO DAILY 10/26/17 01/30/21 lidocaine [Lidoderm] 1 ea TOPICAL DAILY #10 patch 10/26/17 01/30/21 Stomach Relief 262 mg PO DIRECTED 05/04/20 01/30/21 Previous Rx's Medication Instructions Recorded lidocaine [Lidoderm] 1 ea TOPICAL DAILY #10 patch 10/26/17 Allergies Allergy/AdvReac Type Severity Reaction Status Date / Time Penicillins Allergy Severe Anaphylaxsi Unverified 01/30/21 10:59 s General Stated Complaint: Orthopedic MARY: 3 Review of Systems All systems reviewed & are unremarkable except as noted in HPI and below Constitutional Constitutional: Denies body ache(s), Denies chills, Denies difficulty sleeping, Denies fever(s) and Denies weakness Musculoskeletal Musculoskeletal: Reports arthralgias (Left arm) and Reports stiffness Neurologic Neurologic: Denies weakness [facility] Medical History (Updated 01/30/21 @ 12:53 by Arianne Iglesias) Adenocarcinoma of endometrium Anxiety ASHD (arteriosclerotic heart disease) Benign hypertension Bronchitis Hyperlipidemia Other chronic pain fibromyalgia Wrist fracture, right Surgical History Hyseterectomy, Total Laparoscopic w/ BSO Replacement of total knee joint (02/07/08) right Total replacement of hip (03/26/01) left hip, right hip, right ANGELINA revision femoral stem with open reduction and internal fixation of periprosthetic fracture with cerclage cables. Total replacement of hip (09/04/08) left hip, right hip, right ANGELINA revision femoral stem with open reduction and internal fixation of periprosthetic fracture with cerclage cables. Total replacement of hip (09/11/08) left hip, right hip, right ANGELINA revision femoral stem with open reduction and internal fixation of periprosthetic fracture with cerclage cables. Social History Smoking/Tobacco Use Status: Former Tobacco Use Quit Date: 05/01/16 Smoking risk assessment performed?: Yes Alcohol Intake: never Drug use: Never Substance use type: does not use Do you feel safe at home: Yes Do you feel safe in your relationship?: Yes Exam Extrem Left upper extremity: normal capillary refill and shoulder/upper arm Details: tenderness and other (Decreased shoulder abduction, does have tenderness to the distal humerus and a small contusion noted distal CMS intact full range of motion to the elbow and wrist); no cyanosis and no edema Course Vital Signs Vital signs: Vital Signs Temperature 36.4 C L 01/30/21 10:53 Pulse 74 01/30/21 10:53 Respiratory Rate 18 01/30/21 10:53 Blood Pressure 152/85 H 01/30/21 10:53 Pulse Oximetry 94 01/30/21 10:53 Temperature 36.4 C L 01/30/21 10:53 Temperature Source Temporal Artery Scan 01/30/21 10:53 Pulse 74 01/30/21 10:53 Respiratory Rate 18 01/30/21 10:53 Respiratory Effort Non-Labored 01/30/21 10:57 Blood Pressure 152/85 H 01/30/21 10:53 Blood Pressure Position Sitting 01/30/21 10:53 Pulse Oximetry 94 01/30/21 10:53 Oxygen Delivery Method Room Air 01/30/21 10:53 Oxygen Flow Rate 0 01/30/21 10:53 Pain Level 8 01/30/21 10:58
[2021-01-30] MEDS: Acetaminophen 500 MG TAB PO (11:16)
--- NOTE | 2021-01-30 11:34 | DI.RAD_ITS ---
Exam(s) XR HUMERUS LT EXAM: XR HUMERUS LT CLINICAL HISTORY: Fall, distal humerus pain, R/O fracture. TECHNIQUE: 2D digital imaging was performed. COMPARISON: No exams were available for comparison FINDINGS: BONES: No acute fracture is present. No bony destructive lesion is seen. Visualized portion of elbow and shoulder joints are unremarkable. Osteopenia. There is an old left rib fracture deformity. SOFT TISSUE: Normal. IMPRESSION: No acute fracture or dislocation. DATA REPOSITORY: RADIATION DOSE DELIVERED:
[2021-01-30] MEDS: Lidocaine 5% Patch 1 PATCH TP (13:06)
== END 2021-01-30 13:04 | disposition home or self-care (01) ==
PROVIDERS: Emergency Provider Registered Nurse Emergency; PCP Family Medicine
DX: S43.492A Other sprain of left shoulder joint, initial encounter (principal); W08.XXXA Fall from other furniture, initial encounter
CPT/HCPCS: 99283; 73060

== ENCOUNTER 2021-07-11 18:04 | Emergency (ER) | payer MEDICARE, MEDICAID, SELFPAY ==
[2021-07-11 18:10] VITALS: BP 152/85; PULSE 64; RESP 20; TEMP 36.8; O2SAT 94
--- NOTE | 2021-07-11 18:15 | DI.CT_ITS ---
Exam(s) CT HEAD WO EXAM: CT HEAD WO CLINICAL HISTORY: fall/head injury. TECHNIQUE: Imaging Protocol: Axial computed tomography images with coronal and sagittal reformatted images were created and reviewed COMPARISON: No exams were available for comparison FINDINGS: There is moderate generalized cerebral atrophy and there are prominent patchy areas of decreased att enuation in periventricular white matter consistent with microvascular ischemic changes. No evidence of acute intracranial hemorrhage, mass effect, or midline shift. The orbital structures are unremarkable. The temporal bone structures appear intact. Calvarium: Normal. Visualized Paranasal sinuses/Mastoids: Clear. IMPRESSION: No evidence of acute intracranial process. RADIATION DOSE DELIVERED: 711.58mGy.cm Total DLP 711.58mGy.cm Total DLP CTDIvol DATA REPOSITORY: All CT scans at this facility are submitted to the National Radiology Data Registry (NRDR) Dose Index Registry (DIR) with the [employer] (ACR). RADIATION OPTIMIZATION: All CT scans at this facility use at least one of these dose optimization te chniques: automated exposure control; mA and/or kV adjustment per patient size (includes targeted exa ms where dose is matched to clinical indication); or iterative reconstruction.
--- NOTE | 2021-07-11 18:23 | ED.GENADUL_ITS ---
Discharge Plan Disposition Patient Disposition: HOME Condition: Stable Discharge Details Clinical Impression: Head injury, Laceration of scalp Primary Care Provider: Ana Dwyer V ED Provider: Partha Kamara Home Meds and New Rx's Prescriptions: Continued bupropion HCl [Wellbutrin SR] 100 MG tablet extended release 12 hr 100 mg PO BID RF: 0 potassium chloride 10 MEQ capsule, extended release 10 meq PO DAILY RF: 0 oxycodone-acetaminophen [Percocet] 1 EACH tablet 1 tab-cap PO QID PRN PRNRF: 0 nitroglycerin [Nitrostat] 0.4 MG tablet, sublingual 0.4 mg Buccal Q5 MIN PRN X3 PRNRF: 0 furosemide [Lasix] 20 MG tablet 20 mg PO DIRECTED RF: 0 buspirone 15 MG tablet 15 mg PO HS RF: 0 Prilosec 10 MG susp,delayed release for recon 20 mg PO DAILY RF: 0 citalopram [Celexa] 40 MG tablet 40 mg PO DAILY RF: 0 metoprolol tartrate 25 MG tablet 25 mg PO BID RF: 0 gabapentin [Neurontin] 300 MG capsule 600 - 900 mg PO DIRECTED RF: 0 Stomach Relief 262 mg tablet 262 mg PO DIRECTED RF: 0 ibuprofen 600 mg tablet 600 mg PO DAILY RF: 0 Vitamin D3 Complete 1 EACH tablet 1 tab PO DIRECTED RF: 0 amlodipine [Norvasc] 10 MG tablet 10 mg PO DAILY RF: 0 albuterol sulfate [Ventolin HFA] 8 GM HFA aerosol inhaler 2 puff Inhalation Q4H PRNRF: 0 B-12 Compliance 1,000 MCG/ML kit 1,000 mcg IM DIRECTED RF: 0 Discharge Instructions Instructions: Head Injury (ED) Additional Instructions: CT imaging of your brain does not reveal any obvious emergent process. Tetanus status was updated. Laceration repaired with 4 cheryl. [id number] Tylenol as directed for discomfort. Cool compresses every 2 hours for 20 minutes. Please watch for new or worsening symptoms and return to the ER for any concerns. Cheryl should come out in 5 days, please return to the ER. Otherwise contact your primary care provider tomorrow to discuss your ER visit need for outpatient reevaluation. Discharge Data Discharge Date/Time-TO BE ENTERED AT DEPARTURE: 07/11/21 20:41 Medical Decision Making This is a 80-year-old female who had a mechanical fall just prior to arrival striking the back of her head. She is not anticoagulated. There was no global headache, visual changes, neck pain, distracting injuries. Tetanus status not up-to-date. Will update tetanus, obtain head CT to rule out intracranial process, and clean the laceration. Laceration will likely require repair. Tetanus updated CT negative for acute process The laceration was thoroughly cleaned and irrigated and then I was able to easily approximate using 4 cheryl, patient tolerated well. Patient remains neurologically intact. Able to ambulate without any difficulty. Patient is comfortable discharge at this time. Strict discharge and return precautions provided This documentation was generated using Longaccessation system, please disregard any oddities of phrase or misspellings. Medical Records Medical records reviewed: Yes I reviewed the patient's medical records. Imaging Data Radiologic Study: Attestation: I personally reviewed and interpreted this imaging study as follows: Imaging: CT Scan Radiologist's impression: PROCEDURE INFORMATION: Exam: CT Head Without Contrast Exam date and time: 07/11/2021 6:21 PM Age: 80 years old Clinical indication: Other: Fall/head injury TECHNIQUE: Imaging protocol: Computed tomography of the head without contrast. Other technique: STROKE PROTOCOL was implemented. COMPARISON: CR XR cervical spine comp 4-5V 03/01/2019 11:29 AM FINDINGS: Brain: Changes of mild cerebral and cerebellar atrophy. Cerebral ventricles: No ventriculomegaly. Paranasal sinuses: Visualized sinuses are unremarkable. No fluid levels. Mastoid air cells: Unremarkable as visualized. No mastoid effusion. Bones/joints: No acute fracture. Soft tissues: Left posterior occipital scalp hematoma and possible laceration. IMPRESSION: Changes of cerebral and cerebellar atrophy. No acute focal intracranial lesions. HPI General Mode of arrival: EMS . Date/Time Provider Initiated Documentation: 07/11/21 18:11 . Limitations to Documentation: no limitations . Information obtained by: patient . HPI Narrative: This is a 80-year-old female, not anticoagulated, past medical history that includes anxiety, hypertension, hyperlipidemia, A. fib, CAD, GERD, presenting to the ER this evening via EMS for evaluation of a head injury status post mechanical slip and fall striking the back of her head just prior to arrival. Patient states that she was ambulating with her rolling walker, was attempting to reposition this in order to sit down into the recliner, lost her balance falling backwards striking the back of her head upon a bookshelf. She reports mild pain at the site of the injury but denies global headache, LOC, visual changes, neck pain, any symptoms prior to the fall, numbness, tingling, weakness, incontinence, pain in her extremities. She is unsure of her tetanus status. Has not taken any medication for her discomfort. Related Data Home Medications Medication Instructions Recorded Confirmed citalopram [Celexa] 40 mg PO DAILY 03/02/13 07/11/21 metoprolol tartrate 25 mg PO BID 03/02/13 07/11/21 gabapentin [Neurontin] 600 - 900 mg PO DIRECTED 03/09/13 07/11/21 bupropion HCl [Wellbutrin SR] 100 mg PO BID tab-cap 08/22/13 07/11/21 Prilosec 20 mg PO DAILY packet 11/04/16 07/11/21 buspirone 15 mg PO HS 11/04/16 07/11/21 furosemide [Lasix] 20 mg PO DIRECTED tab-cap 11/04/16 07/11/21 nitroglycerin [Nitrostat] 0.4 mg BUCCAL Q5 MIN PRN X3 PRN 11/04/16 07/11/21 tab-cap oxycodone-acetaminophen [Percocet] 1 tab-cap PO QID PRN PRN tab-cap 11/04/16 07/11/21 potassium chloride 10 meq PO DAILY tab-cap 11/04/16 07/11/21 B-12 Compliance 1,000 mcg IM DIRECTED 10/26/17 07/11/21 Vitamin D3 Complete 1 tab PO DIRECTED 10/26/17 07/11/21 albuterol sulfate [Ventolin HFA] 2 puff INHALATION Q4H PRN 10/26/17 07/11/21 amlodipine [Norvasc] 10 mg PO DAILY 10/26/17 07/11/21 Stomach Relief 262 mg PO DIRECTED 05/04/20 07/11/21 ibuprofen 600 mg PO DAILY 07/11/21 07/11/21 Allergies Allergy/AdvReac Type Severity Reaction Status Date / Time Penicillins Allergy Severe Anaphylaxsi Unverified 07/11/21 20:23 s General Stated Complaint: HeadInjury MARY: 4 Review of Systems Constitutional Constitutional: Denies headache(s) and Denies weakness Eyes Eyes: Denies change in vision ENT Ears, Nose, Mouth, and Throat: Denies headache(s) and Denies neck pain Cardiovascular Cardiovascular: Denies chest pain and Denies dyspnea Respiratory Respiratory: Denies cough and Denies dyspnea Gastrointestinal Gastrointestinal: Denies abdominal pain, Denies nausea and Denies vomiting Musculoskeletal Musculoskeletal: Denies deformity, Denies neck pain, Denies numbness and Denies tingling Integumentary/Breasts Skin/Breast: Denies rash Neurologic Neurologic: Denies headache(s), Denies numbness, Denies tingling and Denies weakness Hematologic/Lymphatic Hematologic/Lymphatic: Denies easy bleeding and Denies easy bruising [facility] Medical History Adenocarcinoma of endometrium Anxiety ASHD (arteriosclerotic heart disease) Benign hypertension Bronchitis Hyperlipidemia Other chronic pain fibromyalgia Wrist fracture, right Surgical History Hyseterectomy, Total Laparoscopic w/ BSO Replacement of total knee joint (02/07/08) right Total replacement of hip (03/26/01) left hip, right hip, right ANGELINA revision femoral stem with open reduction and internal fixation of periprosthetic fracture with cerclage cables. Total replacement of hip (09/04/08) left hip, right hip, right ANGELINA revision femoral stem with open reduction and internal fixation of periprosthetic fracture with cerclage cables. Total replacement of hip (09/11/08) left hip, right hip, right ANGELINA revision femoral stem with open reduction and internal fixation of periprosthetic fracture with cerclage cables. Social History Smoking/Tobacco Use Status: Former Tobacco Use Quit Date: 05/01/16 Smoking risk assessment performed?: Yes Alcohol Intake: never Drug use: Never Substance use type: does not use Do you feel safe at home: Yes Do you feel safe in your relationship?: Yes Exam Const General: cooperative, healthy appearing, comfortable and no acute distress Orientation: alert, awake and oriented x3 HENMT Head: normocephalic Head images: 1. 2.5 cm horizontal laceration. Well approximated, no active bleeding. Diffuse mild discomfort. No bony point tenderness or crepitus Ears: external ears normal, TM's normal bilaterally and EAC's normal Face and sinus: normal facial exam Mouth: moist mucous membranes Eyes General: appearance normal, both eyes and all related structures Alignment and Position: alignment normal Periorbital: periorbital findings normal Eyelids: eyelids normal Conjunctivae: conjunctivae normal Sclera: sclerae normal Cornea: corneas normal Pupils: PERRL EOM: EOM intact bilaterally Direct ophthalmoscopy: normal light reflex Neck Neck: normal visual inspection, full ROM, trachea midline, supple and nontender Resp Effort & Inspection: normal respiratory effort and able to speak in complete sentences Auscultation: clear to auscultation bilaterally Cardio Rate: regular rate Rhythm: regular rhythm GI Palpation: soft and nontender Back/Spine/Pelvis Back: No back tenderness Skin General skin exam: no rashes or lesions noted Neuro General: patient alert, patient awake, patient oriented x3, moves all extremities and no focal motor deficits Cranial Nerves: CN's II-XI intact bilaterally Cognition: normal cognition Speech: speech normal Gait: normal gait Motor: muscle tone normal throughout and strength 5/5 throughout Sensory Exam: no sensory deficits noted Extrem General: normal to inspection, full ROM and capillary refill normal Psych Appearance: grossly normal Mental Status: mental status grossly normal Course Vital Signs Vital signs: Vital Signs Temperature 36.8 C 07/11/21 18:10 Pulse 64 07/11/21 18:10 Respiratory Rate 20 07/11/21 18:10 Blood Pressure 152/85 H 07/11/21 18:10 Pulse Oximetry 94 07/11/21 18:10 Temperature 36.8 C 07/11/21 18:10 Temperature Source Oral 07/11/21 18:10 Pulse 64 07/11/21 18:10 Respiratory Rate 20 07/11/21 18:10 Blood Pressure 152/85 H 07/11/21 18:10 Blood Pressure Position Supine 07/11/21 18:10 Pulse Oximetry 94 07/11/21 18:10 Oxygen Delivery Method Room Air 07/11/21 18:10 Oxygen Flow Rate 0 07/11/21 18:10 Pain Level 7 07/11/21 18:10 Procedures Laceration Laceration 1: Site: scalp Size (cm): 6 Description: linear Depth: simple, single layer Local Anesthetic: other anesthetic (LET) Amount of anesthesia used (mL): 5 Pre-repair: wound explored, irrigated extensively and deep structures intact Skin layer closed with: other (cheryl) Number of sutures: 5
[2021-07-11] MEDS: Lidocaine/Epinephri/Tetracaine Topical Gel 3 ML TP (18:57)
--- NOTE | 2021-07-11 19:20 | DI.VRAD_ITS ---
PROCEDURE INFORMATION: Exam: CT Head Without Contrast Exam date and time: 07/11/2021 6:21 PM Age: 80 years old Clinical indication: Other: Fall/head injury TECHNIQUE: Imaging protocol: Computed tomography of the head without contrast. Other technique: STROKE PROTOCOL was implemented. COMPARISON: CR XR cervical spine comp 4-5V 03/01/2019 11:29 AM FINDINGS: Brain: Changes of mild cerebral and cerebellar atrophy. Cerebral ventricles: No ventriculomegaly. Paranasal sinuses: Visualized sinuses are unremarkable. No fluid levels. Mastoid air cells: Unremarkable as visualized. No mastoid effusion. Bones/joints: No acute fracture. Soft tissues: Left posterior occipital scalp hematoma and possible laceration. IMPRESSION: Changes of cerebral and cerebellar atrophy. No acute focal intracranial lesions. ASSESSMENT: ASPECTS (Priti Stroke Program Early CT Score) is 10. Dictated and Authenticated by: Blaine Nicholson MD. Ordering:MIRELLA Chavis MD
[2021-07-11] MEDS: Hydrogen Peroxide 3% 480 ML BTL (21:15)
== END 2021-07-11 20:41 | disposition home or self-care (01) ==
PROVIDERS: Emergency Provider Physician Assistant; PCP Family Medicine
DX: S09.8XXA Other specified injuries of head, initial encounter (principal); S01.01XA Laceration without foreign body of scalp, initial encounter; W01.198A Fall on same level from slipping, tripping and stumbling with subsequent striking against other object, initial encounter
CPT/HCPCS: 12002; 90471; 99281; 70450

== ENCOUNTER 2021-07-17 10:01 | Emergency (ER) | payer MEDICARE, MEDICAID, SELFPAY ==
[2021-07-17 10:05] VITALS: BP 168/87; PULSE 72; RESP 16; TEMP 36; O2SAT 93
--- NOTE | 2021-07-17 10:16 | ED.GENADUL_ITS ---
Discharge Plan Disposition Patient Disposition: HOME Condition: Stable Discharge Details Clinical Impression: Removal of cheryl Primary Care Provider: Ana Dwyer V ED Provider: Arianne Iglesias Home Meds and New Rx's Prescriptions: No Action bupropion HCl [Wellbutrin SR] 100 MG tablet extended release 12 hr 100 mg PO BID RF: 0 potassium chloride 10 MEQ capsule, extended release 10 meq PO DAILY RF: 0 oxycodone-acetaminophen [Percocet] 1 EACH tablet 1 tab-cap PO QID PRN PRNRF: 0 nitroglycerin [Nitrostat] 0.4 MG tablet, sublingual 0.4 mg Buccal Q5 MIN PRN X3 PRNRF: 0 furosemide [Lasix] 20 MG tablet 20 mg PO DIRECTED RF: 0 buspirone 15 MG tablet 15 mg PO HS RF: 0 Prilosec 10 MG susp,delayed release for recon 20 mg PO DAILY RF: 0 citalopram [Celexa] 40 MG tablet 40 mg PO DAILY RF: 0 metoprolol tartrate 25 MG tablet 25 mg PO BID RF: 0 gabapentin [Neurontin] 300 MG capsule 600 - 900 mg PO DIRECTED RF: 0 Stomach Relief 262 mg tablet 262 mg PO DIRECTED RF: 0 ibuprofen 600 mg tablet 600 mg PO DAILY RF: 0 Vitamin D3 Complete 1 EACH tablet 1 tab PO DIRECTED RF: 0 amlodipine [Norvasc] 10 MG tablet 10 mg PO DAILY RF: 0 albuterol sulfate [Ventolin HFA] 8 GM HFA aerosol inhaler 2 puff Inhalation Q4H PRNRF: 0 B-12 Compliance 1,000 MCG/ML kit 1,000 mcg IM DIRECTED RF: 0 Discharge Instructions Instructions: Acute Wound Care (ED) Additional Instructions: Do not scrub at scab formation. Allow the scab to fall off on its own. You may shower as normal. Follow up with primary care provider in 7-10 days if needed. Return to ED sooner if any worsening or concerns. Increase oral fluids. Referrals: Ana Dwyer MD [Primary Care Provider] - Medical Decision Making 4 cheryl removed patient tolerated well wound was well approximated. Discussed home care, patient verbalized understanding. HPI General Mode of arrival: wheelchair . Date/Time Provider Initiated Documentation: 07/17/21 10:10 . Limitations to Documentation: no limitations . Information obtained by: patient, RN notes reviewed and old records reviewed . HPI Narrative: 80-year-old female presents to the ER for suture/staple removal of a scalp laceration which occurred 6 days ago. Patient reports that she fell sustaining a laceration the back of her head and received 4 cheryl. [place] are in place upon initial exam wound is well approximated. There is a scab formation. No surrounding erythema or induration or signs of infection. Patient denies any problems at home denies any headache chills or fever. Cheryl removed easily patient tolerated well. Related Data Home Medications Medication Instructions Recorded Confirmed citalopram [Celexa] 40 mg PO DAILY 03/02/13 07/17/21 metoprolol tartrate 25 mg PO BID 03/02/13 07/17/21 gabapentin [Neurontin] 600 - 900 mg PO DIRECTED 03/09/13 07/17/21 bupropion HCl [Wellbutrin SR] 100 mg PO BID tab-cap 08/22/13 07/17/21 Prilosec 20 mg PO DAILY packet 11/04/16 07/17/21 buspirone 15 mg PO HS 11/04/16 07/17/21 furosemide [Lasix] 20 mg PO DIRECTED tab-cap 11/04/16 07/17/21 nitroglycerin [Nitrostat] 0.4 mg BUCCAL Q5 MIN PRN X3 PRN 11/04/16 07/17/21 tab-cap oxycodone-acetaminophen [Percocet] 1 tab-cap PO QID PRN PRN tab-cap 11/04/16 07/17/21 potassium chloride 10 meq PO DAILY tab-cap 11/04/16 07/17/21 B-12 Compliance 1,000 mcg IM DIRECTED 10/26/17 07/17/21 Vitamin D3 Complete 1 tab PO DIRECTED 10/26/17 07/17/21 albuterol sulfate [Ventolin HFA] 2 puff INHALATION Q4H PRN 10/26/17 07/17/21 amlodipine [Norvasc] 10 mg PO DAILY 10/26/17 07/17/21 Stomach Relief 262 mg PO DIRECTED 05/04/20 07/17/21 ibuprofen 600 mg PO DAILY 07/11/21 07/17/21 Allergies Allergy/AdvReac Type Severity Reaction Status Date / Time Penicillins Allergy Severe Anaphylaxsi Unverified 07/17/21 10:09 s General Stated Complaint: SutureRem MARY: 5 Review of Systems Integumentary/Breasts Skin/Breast: Reports wounds (Staple removal healing laceration noted to the occipital scalp) [facility] Active Problem List Sprain of left upper arm (Acute) Head injury (Acute) Laceration of scalp (Acute) ASHD (arteriosclerotic heart disease) (Chronic) Lone atrial fibrillation (Acute) Atrial fibrillation (Chronic) NSTEMI (non-ST elevated myocardial infarction) (Acute) Coronary artery disease (Chronic) Dyslipidemia (Chronic) Hypertension (Chronic) Tobacco abuse (Chronic) Frequent headaches (Chronic) Colon polyps (Chronic) GERD (gastroesophageal reflux disease) (Chronic) Fibrocystic breast changes (Chronic) Osteoarthritis (Chronic) Depression (Chronic) Memory loss (Chronic) Insomnia (Chronic) PTSD (post-traumatic stress disorder) (Chronic) Seasonal allergies (Chronic) Chronic pain (Chronic) Fibromyalgia (Chronic) Vitamin B 12 deficiency (Chronic) COPD (chronic obstructive pulmonary disease) (Chronic) Medical History Adenocarcinoma of endometrium Anxiety Benign hypertension Bronchitis Hyperlipidemia Other chronic pain fibromyalgia Wrist fracture, right Surgical History Hyseterectomy, Total Laparoscopic w/ BSO Replacement of total knee joint (02/07/08) right Total replacement of hip (03/26/01) left hip, right hip, right ANGELINA revision femoral stem with open reduction and internal fixation of periprosthetic fracture with cerclage cables. Total replacement of hip (09/04/08) left hip, right hip, right ANGELINA revision femoral stem with open reduction and internal fixation of periprosthetic fracture with cerclage cables. Total replacement of hip (09/11/08) left hip, right hip, right ANGELINA revision femoral stem with open reduction and internal fixation of periprosthetic fracture with cerclage cables. Social History Smoking/Tobacco Use Status: Former Tobacco Use Quit Date: 05/01/16 Smoking risk assessment performed?: Yes Alcohol Intake: never Drug use: Never Substance use type: does not use Do you feel safe at home: Yes Do you feel safe in your relationship?: Yes Exam HENMT Head: laceration left occipital linear ([address] scalp noted wound well approximated no surrounding erythema or induration or signs of infection) Course Vital Signs Vital signs: Vital Signs Temperature 36 C L 07/17/21 10:05 Pulse 72 07/17/21 10:05 Respiratory Rate 16 07/17/21 10:05 Blood Pressure 168/87 H 07/17/21 10:05 Pulse Oximetry 93 07/17/21 10:05 Temperature 36 C L 07/17/21 10:05 Temperature Source Skin 07/17/21 10:05 Pulse 72 07/17/21 10:05 Respiratory Rate 16 07/17/21 10:05 Respiratory Effort Non-Labored 07/17/21 10:05 Blood Pressure 168/87 H 07/17/21 10:05 Blood Pressure Position Sitting 07/17/21 10:05 Pulse Oximetry 93 07/17/21 10:05 Oxygen Delivery Method Room Air 07/17/21 10:05 Oxygen Flow Rate 0 07/17/21 10:05 Pain Level 6 07/17/21 10:05
== END 2021-07-17 10:26 | disposition home or self-care (01) ==
PROVIDERS: Emergency Provider Registered Nurse Emergency; PCP Family Medicine
DX: S01.01XD Laceration without foreign body of scalp, subsequent encounter (principal); X58.XXXD Exposure to other specified factors, subsequent encounter; Z48.02 Encounter for removal of sutures

== ENCOUNTER 2021-12-12 17:08 | Outpatient (REF) | payer MEDICARE, MEDICAID, SELFPAY ==
[2021-12-12 21:29] LABS: HCT 38.1 % (36.0-46.0); HGB 10.9 g/dL (11.2-15.7); MCHC 28.6 % (32.0-36.0); MCV 80.4 fL (80-95); MPV 9.8 fL (8.0-11.0); Platelet Count 422 10^3/uL (130-400); RBC 4.74 10^6/uL (3.93-5.22); RDW 16.9 % (11.7-14.6); RDW-SD 49.9 fL; WBC 10.14 10^3/uL (4.4-10.8)
[2021-12-12 21:33] LABS: ALT 17 U/L (14-59); AST 11 U/L (15-37); Albumin 3.3 g/dL (3.4-5.0); Alkaline Phosphatase 144 U/L (46-116); Anion Gap 6.1 mmol/L (3-11); BUN 21 mg/dL (7-18); Bilirubin, Total 0.1 mg/dL (0.2-1.0); CO2 29.9 mmol/L (21.0-32.0); CREATININE 0.6 mg/dL (0.55-1.02); Calcium 8.4 mg/dL (8.5-10.1); Calculated LDL 95 mg/dL (<100); Chloride 100 mmol/L (98-107); Cholesterol 164 mg/dL (<200); Glucose 96 mg/dL (74-106); HDL Cholesterol 54 mg/dL (40-60); Potassium 4.5 mmol/L (3.5-5.1); Sodium 136 mmol/L (136-145); TSH (W/Ref FT4) 0.73 uIU/mL (0.36-3.74); Total Protein 6.7 g/dL (6.4-8.2); Triglyceride 76 mg/dL (<150)
[2021-12-12 21:54] LABS: Hemoglobin A1C 6.2 % (<5.7)
== END 2021-12-12 17:09 | disposition home or self-care (01) ==
LOC: NCHCN 17:08
PROVIDERS: PCP Family Medicine; Visit Provider Family Medicine
DX: I10 Essential (primary) hypertension (principal); E53.8 Deficiency of other specified B group vitamins; E78.5 Hyperlipidemia, unspecified; M79.7 Fibromyalgia; R73.09 Other abnormal glucose
CPT/HCPCS: 80053; 80061; 85027; 83036; 84443

== ENCOUNTER 2022-01-09 14:34 | Outpatient (REF) | payer MEDICARE, MEDICAID, SELFPAY ==
[2022-01-10 09:16] LABS: Abs Immature Grans 0.02 10^3/uL (0.0-0.06); Absolute Basophil Count 0.08 10^3/uL (0.0-0.2); Absolute Eosinophil Count 0.31 10^3/uL (0.0-0.7); Absolute Lymphocyte Count 1.95 10^3/uL (1.2-3.4); Absolute Monocyte Count 0.52 10^3/uL (0.1-0.8); Absolute Neutrophil Count 5.04 10^3/uL (1.2-6.7); Eosinophils % 3.9; HCT 40.7 % (36.0-46.0); Immature Grans % 0.3; Lymphocytes % 24.6; MCH 23.4 pg (27.0-33.0); MCHC 29.5 % (32.0-36.0); MCV 80 fL (80-95); MPV 10.2 fL (8.0-11.0); Monocytes % 6.6; Neutrophils % 63.6; Platelet Count 331 10^3/uL (130-400); RBC 5.12 10^6/uL (3.93-5.22); RDW 18.5 % (11.7-14.6); RDW-SD 52.6 fL; WBC 7.92 10^3/uL (4.4-10.8)
[2022-01-10 09:47] LABS: Hemoglobin A1C 6.2 % (<5.7)
[2022-01-10 09:48] LABS: Iron 71 ug/dL (50-170); Total Iron Binding Capacity 444 ug/dL (250-450)
[2022-01-10 10:12] LABS: ALT 28 U/L (14-59); AST 17 U/L (15-37); Albumin 3.5 g/dL (3.4-5.0); Alkaline Phosphatase 134 U/L (46-116); Anion Gap 9.1 mmol/L (3-11); BUN 10 mg/dL (7-18); Bilirubin, Total 0.3 mg/dL (0.2-1.0); CO2 28.9 mmol/L (21.0-32.0); CREATININE 0.5 mg/dL (0.55-1.02); Calcium 8.5 mg/dL (8.5-10.1); Chloride 99 mmol/L (98-107); Glucose 102 mg/dL (74-106); Magnesium 1.8 mg/dL (1.8-2.4); Potassium 4.5 mmol/L (3.5-5.1); Sodium 137 mmol/L (136-145); TSH (W/Ref FT4) 0.51 uIU/mL (0.36-3.74); Total Protein 6.5 g/dL (6.4-8.2); Vitamin B12 403 pg/mL (193-986)
[2022-01-10 18:44] LABS: Ferritin 14 ng/mL (10-291); Folate 5.7 ng/mL (See Note)
[2022-01-13 06:10] LABS: Vitamin D 25 Total 12.1 ng/mL (30-100)
== END 2022-01-09 14:35 | disposition home or self-care (01) ==
LOC: LBN 14:34
PROVIDERS: PCP Family Medicine; Visit Provider Nurse Practitioner Gerontology
DX: R41.3 Other amnesia (principal); R68.89 Other general symptoms and signs
CPT/HCPCS: 80053; 82306; 82607; 82728; 82746; 83036; 83540; 83550; 83735; 84443; 85025

== ENCOUNTER 2022-03-24 16:08 | Outpatient (REF) | payer MEDICARE, MEDICAID, SELFPAY ==
[2022-03-24 17:42] LABS: Abs Immature Grans 0.02 10^3/uL (0.0-0.06); Absolute Basophil Count 0.08 10^3/uL (0.0-0.2); Absolute Eosinophil Count 0.19 10^3/uL (0.0-0.7); Absolute Lymphocyte Count 2.18 10^3/uL (1.2-3.4); Absolute Monocyte Count 0.62 10^3/uL (0.1-0.8); Basophils % 0.9; Eosinophils % 2.1; HCT 36.1 % (36.0-46.0); HGB 11.2 g/dL (11.2-15.7); Immature Grans % 0.2; MCH 25.2 pg (27.0-33.0); MCV 81 fL (80-95); MPV 9.6 fL (8.0-11.0); Monocytes % 6.8; Platelet Count 422 10^3/uL (130-400); RBC 4.45 10^6/uL (3.93-5.22); RDW 18.2 % (11.7-14.6); RDW-SD 53.7 fL; WBC 9.09 10^3/uL (4.4-10.8)
[2022-03-24 18:05] LABS: Vitamin D 25 Total 19.6 ng/mL (30-100)
[2022-03-24 18:06] LABS: ALT 16 U/L (14-59); AST 10 U/L (15-37); Albumin 2.9 g/dL (3.4-5.0); Alkaline Phosphatase 119 U/L (46-116); Anion Gap 9.6 mmol/L (3-11); BUN 9 mg/dL (7-18); Bilirubin, Total 0.2 mg/dL (0.2-1.0); CO2 27.4 mmol/L (21.0-32.0); CREATININE 0.6 mg/dL (0.55-1.02); Calcium 8.6 mg/dL (8.5-10.1); Chloride 101 mmol/L (98-107); Glucose 87 mg/dL (74-106); Potassium 4.3 mmol/L (3.5-5.1); Sodium 138 mmol/L (136-145); Total Protein 6.1 g/dL (6.4-8.2); Vitamin B12 322 pg/mL (193-986)
== END 2022-03-24 16:09 | disposition home or self-care (01) ==
LOC: LBN 16:08
PROVIDERS: PCP Family Medicine; Visit Provider Nurse Practitioner Gerontology
DX: R68.89 Other general symptoms and signs (principal)
CPT/HCPCS: 80053; 82306; 82607; 85025

== ENCOUNTER 2022-05-06 21:34 | Outpatient (REF) | payer MEDICARE, MEDICAID, SELFPAY ==
[2022-05-06 22:19] LABS: Vitamin B12 455 pg/mL (193-986)
[2022-05-06 22:25] LABS: Folate > 20.0 ng/mL (8.6-20.0)
[2022-05-08 05:40] LABS: Vitamin D 25 Total 27.8 ng/mL (30-100)
== END 2022-05-06 21:35 | disposition home or self-care (01) ==
LOC: LBN 21:34
PROVIDERS: PCP Family Medicine; Visit Provider Nurse Practitioner Gerontology
DX: M62.81 Muscle weakness (generalized) (principal); R68.89 Other general symptoms and signs; Z79.899 Other long term (current) drug therapy; G89.29 Other chronic pain; E78.5 Hyperlipidemia, unspecified; I10 Essential (primary) hypertension
CPT/HCPCS: 82306; 82607; 82746

== ENCOUNTER 2022-06-24 16:41 | Outpatient (REF) | payer MEDICARE, MEDICAID, SELFPAY ==
[2022-06-25 15:16] LABS: Vitamin D 25 Total 35.9 ng/mL (30-100)
== END 2022-06-24 16:42 | disposition home or self-care (01) ==
LOC: LBN 16:41
PROVIDERS: PCP Family Medicine; Visit Provider Nurse Practitioner Gerontology
DX: M62.81 Muscle weakness (generalized) (principal); J44.9 Chronic obstructive pulmonary disease, unspecified; I48.0 Paroxysmal atrial fibrillation; F43.11 Post-traumatic stress disorder, acute; R53.1 Weakness
CPT/HCPCS: 82306

== ENCOUNTER 2022-08-04 17:54 | Outpatient (REF) | payer MEDICARE, MEDICAID, SELFPAY ==
[2022-08-06 18:00] LABS: Influenza A RNA Result Negative (Negative); Influenza B RNA Result Negative (Negative)
[2022-08-07 09:36] LABS: RSV RNA Result Positive (Negative)
== END 2022-08-04 17:55 | disposition home or self-care (01) ==
LOC: LBN 17:54
PROVIDERS: PCP Family Medicine; Visit Provider Nurse Practitioner Gerontology
DX: R05.1 Acute cough (principal); R53.83 Other fatigue
CPT/HCPCS: 87631

== ENCOUNTER 2022-11-04 19:04 | Outpatient (REF) | payer MEDICARE, MEDICAID, SELFPAY ==
[2022-11-04 19:58] LABS: Abs Immature Grans 0.04 10^3/uL (0.0-0.06); Absolute Basophil Count 0.06 10^3/uL (0.0-0.2); Absolute Eosinophil Count 0.22 10^3/uL (0.0-0.7); Absolute Lymphocyte Count 3.09 10^3/uL (1.2-3.4); Absolute Monocyte Count 0.77 10^3/uL (0.1-0.8); Absolute Neutrophil Count 6.27 10^3/uL (1.2-6.7); Basophils % 0.6; Eosinophils % 2.1; HCT 35.3 % (36.0-46.0); HGB 11.1 g/dL (11.2-15.7); Immature Grans % 0.4; Lymphocytes % 29.6; MCH 26.7 pg (27.0-33.0); MCHC 31.4 % (32.0-36.0); MCV 85 fL (80-95); MPV 9.4 fL (8.0-11.0); Monocytes % 7.4; Neutrophils % 59.9; Platelet Count 367 10^3/uL (130-400); RBC 4.15 10^6/uL (3.93-5.22); RDW-SD 49.7 fL; WBC 10.45 10^3/uL (4.4-10.8)
[2022-11-04 20:21] LABS: ALT 24 U/L (14-59); AST 13 U/L (15-37); Albumin 3.2 g/dL (3.4-5.0); Alkaline Phosphatase 128 U/L (46-116); Anion Gap 8.3 mmol/L (3-11); BUN 10 mg/dL (7-18); Bilirubin, Total 0.3 mg/dL (0.2-1.0); CO2 28.7 mmol/L (21.0-32.0); CREATININE 0.6 mg/dL (0.55-1.02); Calcium 8.7 mg/dL (8.5-10.1); Chloride 102 mmol/L (98-107); Estimated GFR 90.68 (mL/min/1.73m2); Glucose 97 mg/dL (74-106); NT-proBNP 78 pg/mL (<300); Potassium 4.3 mmol/L (3.5-5.1); Sodium 139 mmol/L (136-145); Total Protein 6.1 g/dL (6.4-8.2)
== END 2022-11-04 19:05 | disposition home or self-care (01) ==
LOC: LBN 19:04
PROVIDERS: PCP Family Medicine; Visit Provider Nurse Practitioner Gerontology
DX: I50.40 Unspecified combined systolic (congestive) and diastolic (congestive) heart failure (principal)
CPT/HCPCS: 80053; 83880; 85025

== ENCOUNTER 2022-12-23 17:39 | Outpatient (REF) | payer MEDICARE, MEDICAID, SELFPAY ==
[2022-12-23 17:54] LABS: Abs Immature Grans 0.12 10^3/uL (0.0-0.06); MCH 26.8 pg (27.0-33.0); MCHC 32.4 % (32.0-36.0); MCV 83 fL (80-95); MPV 9.3 fL (8.0-11.0); Platelet Count 372 10^3/uL (130-400); RBC 4.11 10^6/uL (3.93-5.22); RDW-SD 45.1 fL; WBC 16.68 10^3/uL (4.4-10.8)
[2022-12-23 18:10] LABS: ALT 22 U/L (14-59); AST 14 U/L (15-37); Albumin 2.9 g/dL (3.4-5.0); Alkaline Phosphatase 121 U/L (46-116); BUN 9 mg/dL (7-18); Bilirubin, Total 0.4 mg/dL (0.2-1.0); CREATININE 0.6 mg/dL (0.55-1.02); Calcium 8.7 mg/dL (8.5-10.1); Chloride 97 mmol/L (98-107); Estimated GFR 90.68 (mL/min/1.73m2); Glucose 116 mg/dL (74-106); NT-proBNP 223 pg/mL (<300); Potassium 3.6 mmol/L (3.5-5.1); Sodium 131 mmol/L (136-145); Total Protein 6.2 g/dL (6.4-8.2)
[2022-12-23 18:37] LABS: Absolute Monocyte Count 1.17 10^3/uL (0.1-0.8); Absolute Neutrophil Count 14.01 10^3/uL (1.2-6.7)
[2022-12-23 18:38] LABS: Diff Comment Manual Differential; RBC Morphology Normal
[2022-12-24 10:20] LABS: Vitamin B12 1209 pg/mL (193-986)
== END 2022-12-23 17:40 | disposition home or self-care (01) ==
LOC: LBN 17:39
PROVIDERS: PCP Family Medicine; Visit Provider Nurse Practitioner Gerontology
DX: R41.3 Other amnesia (principal); R68.89 Other general symptoms and signs
CPT/HCPCS: 80053; 82607; 83880; 85025

== ENCOUNTER 2022-12-26 14:52 | Outpatient (REF) | payer MEDICARE, MEDICAID, SELFPAY ==
[2022-12-26 14:12] LABS: Absolute Eosinophil Count 0.09 10^3/uL (0.0-0.7); Absolute Lymphocyte Count 3.05 10^3/uL (1.2-3.4); Absolute Monocyte Count 1.21 10^3/uL (0.1-0.8); Absolute Neutrophil Count 8.25 10^3/uL (1.2-6.7); Basophils % 0.5; Eosinophils % 0.7; HCT 35.2 % (36.0-46.0); HGB 11.2 g/dL (11.2-15.7); Immature Grans % 0.8; Lymphocytes % 23.9; MCH 26.2 pg (27.0-33.0); MCHC 31.8 % (32.0-36.0); MCV 82 fL (80-95); MPV 9.1 fL (8.0-11.0); Monocytes % 9.5; Neutrophils % 64.6; Platelet Count 482 10^3/uL (130-400); RBC 4.27 10^6/uL (3.93-5.22); RDW 15.1 % (11.7-14.6); RDW-SD 45.2 fL; WBC 12.77 10^3/uL (4.4-10.8)
[2022-12-26 14:14] LABS: Absolute Basophil Count 0.06 10^3/uL (0.0-0.2)
[2022-12-26 14:34] LABS: ALT 26 U/L (14-59); AST 12 U/L (15-37); Albumin 2.8 g/dL (3.4-5.0); Alkaline Phosphatase 104 U/L (46-116); Anion Gap 5.4 mmol/L (3-11); BUN 11 mg/dL (7-18); Bilirubin, Total 0.2 mg/dL (0.2-1.0); CO2 30.6 mmol/L (21.0-32.0); CREATININE 0.6 mg/dL (0.55-1.02); Calcium 8.7 mg/dL (8.5-10.1); Chloride 100 mmol/L (98-107); Estimated GFR 90.68 (mL/min/1.73m2); Glucose 87 mg/dL (74-106); Potassium 4.1 mmol/L (3.5-5.1); Sodium 136 mmol/L (136-145); Total Protein 6.2 g/dL (6.4-8.2)
== END 2022-12-26 14:53 | disposition home or self-care (01) ==
LOC: LBN 14:52
PROVIDERS: PCP Family Medicine; Visit Provider Nurse Practitioner Gerontology
DX: R68.89 Other general symptoms and signs (principal); I10 Essential (primary) hypertension; R53.83 Other fatigue
CPT/HCPCS: 80053; 85025

== ENCOUNTER 2023-06-16 16:53 | Outpatient (REF) | payer MEDICARE, MEDICAID, SELFPAY ==
[2023-06-16 17:31] LABS: ALT 18 U/L (14-59); AST 16 U/L (15-37); Albumin 3.2 g/dL (3.4-5.0); Alkaline Phosphatase 137 U/L (46-116); Anion Gap 5.4 mmol/L (3-11); BUN 11 mg/dL (7-18); Bilirubin, Total 0.2 mg/dL (0.2-1.0); CO2 27.6 mmol/L (21.0-32.0); CREATININE 0.7 mg/dL (0.55-1.02); Calcium 8.8 mg/dL (8.5-10.1); Chloride 101 mmol/L (98-107); Estimated GFR 87.37 (mL/min/1.73m2); Glucose 102 mg/dL (74-106); Potassium 4.2 mmol/L (3.5-5.1); Sodium 134 mmol/L (136-145); Total Protein 6.4 g/dL (6.4-8.2)
== END 2023-06-16 16:54 | disposition home or self-care (01) ==
LOC: LBN 16:53
PROVIDERS: PCP Family Medicine; Visit Provider Nurse Practitioner Gerontology
DX: I11.0 Hypertensive heart disease with heart failure (principal); E87.6 Hypokalemia; J44.9 Chronic obstructive pulmonary disease, unspecified
CPT/HCPCS: 80053

== ENCOUNTER 2023-12-28 18:01 | Outpatient (REF) | payer MEDICARE, MEDICAID, SELFPAY ==
[2023-12-28 20:52] LABS: ALT 20 U/L (14-59); AST 12 U/L (15-37); Albumin 3.5 g/dL (3.4-5.0); Alkaline Phosphatase 135 U/L (46-116); Anion Gap 8.3 mmol/L (3-11); BUN 12 mg/dL (7-18); Bilirubin, Total 0.2 mg/dL (0.2-1.0); CO2 25.7 mmol/L (21.0-32.0); CREATININE 0.7 mg/dL (0.55-1.02); Chloride 100 mmol/L (98-107); Estimated GFR 86.83 (mL/min/1.73m2); Glucose 113 mg/dL (74-106); Potassium 4.1 mmol/L (3.5-5.1); Sodium 134 mmol/L (136-145); Total Protein 6.8 g/dL (6.4-8.2); Vitamin B12 928 pg/mL (193-986)
== END 2023-12-28 18:02 | disposition home or self-care (01) ==
LOC: LBN 18:01
PROVIDERS: PCP Family Medicine; Visit Provider Nurse Practitioner Gerontology
DX: G89.4 Chronic pain syndrome (principal); I50.42 Chronic combined systolic (congestive) and diastolic (congestive) heart failure; E87.6 Hypokalemia; I11.0 Hypertensive heart disease with heart failure
CPT/HCPCS: 80053; 82607

== ENCOUNTER 2024-06-30 17:48 | Outpatient (REF) | payer MEDICARE, MEDICAID, SELFPAY ==
[2024-06-30 17:10] LABS: Abs Immature Grans 0.05 10^3/uL (0.0-0.06); Absolute Basophil Count 0.08 10^3/uL (0.0-0.2); Absolute Eosinophil Count 0.21 10^3/uL (0.0-0.7); Absolute Lymphocyte Count 2.42 10^3/uL (1.2-3.4); Absolute Monocyte Count 0.76 10^3/uL (0.1-0.8); Absolute Neutrophil Count 8.21 10^3/uL (1.2-6.7); Basophils % 0.7 %; Eosinophils % 1.8 %; HGB 12.9 g/dL (11.2-15.7); Immature Grans % 0.4 %; Lymphocytes % 20.6 %; MCH 26.8 pg (27.0-33.0); MCHC 30.7 % (32.0-36.0); MCV 87 fL (80-95); Monocytes % 6.5 %; Platelet Count 366 10^3/uL (130-400); RBC 4.81 10^6/uL (3.93-5.22); RDW 15.8 % (11.7-14.6); RDW-SD 50.4 fL; WBC 11.73 10^3/uL (4.4-10.8)
[2024-06-30 17:15] LABS: ALT 20 U/L (14-59); AST 14 U/L (15-37); Albumin 3.6 g/dL (3.4-5.0); Alkaline Phosphatase 135 U/L (46-116); Anion Gap 9.8 mmol/L (3-11); BUN 13 mg/dL (7-18); Bilirubin, Total 0.24 mg/dL (0.2-1.0); CO2 28.2 mmol/L (21.0-32.0); CREATININE 0.7 mg/dL (0.55-1.02); Calcium 9.1 mg/dL (8.5-10.1); Chloride 103 mmol/L (98-107); Estimated GFR 86.83 (mL/min/1.73m2); Glucose 85 mg/dL (74-106); Potassium 4.4 mmol/L (3.5-5.1); Sodium 141 mmol/L (136-145); Total Protein 7.1 g/dL (6.4-8.2)
== END 2024-06-30 17:49 | disposition home or self-care (01) ==
LOC: LBN 17:48
PROVIDERS: Visit Provider Nurse Practitioner Gerontology
DX: D63.8 Anemia in other chronic diseases classified elsewhere (principal); K58.0 Irritable bowel syndrome with diarrhea
CPT/HCPCS: 80053; 85025

== ENCOUNTER 2024-09-29 17:46 | Outpatient (REF) | payer MEDICARE, MEDICAID, SELFPAY ==
[2024-09-29 18:36] LABS: Abs Immature Grans 0.22 10^3/uL (0.0-0.06); Absolute Eosinophil Count 0.05 10^3/uL (0.0-0.7); Basophils % 0.3 %; Eosinophils % 0.2 %; HCT 35.4 % (36.0-46.0); Immature Grans % 0.9 %; MCH 26.8 pg (27.0-33.0); MCHC 31.1 % (32.0-36.0); MCV 86 fL (80-95); MPV 10.4 fL (8.0-11.0); Monocytes % 6.7 %; Platelet Count 320 10^3/uL (130-400); RDW 15.9 % (11.7-14.6); RDW-SD 50.5 fL
[2024-09-29 18:39] LABS: Absolute Basophil Count 0.08 10^3/uL (0.0-0.2); Absolute Lymphocyte Count 1.78 10^3/uL (1.2-3.4); Absolute Neutrophil Count 21.56 10^3/uL (1.2-6.7)
[2024-09-29 18:47] LABS: ALT 15 U/L (14-59); AST 10 U/L (15-37); Albumin 2.8 g/dL (3.4-5.0); Alkaline Phosphatase 124 U/L (46-116); BUN 9 mg/dL (7-18); Bilirubin, Total 0.68 mg/dL (0.2-1.0); CREATININE 0.6 mg/dL (0.55-1.02); Calcium 8.9 mg/dL (8.5-10.1); Chloride 101 mmol/L (98-107); Estimated GFR 89.56 (mL/min/1.73m2); Glucose 128 mg/dL (74-106); NT-proBNP 306 pg/mL (<300); Sodium 134 mmol/L (136-145)
[2024-09-29 18:59] LABS: Diff Comment Agrees w/ Instrument; Neutrophils % 84.9 %; RBC Morphology Normal
[2024-09-30 04:42] LABS: Magnesium 1.6 mg/dL (1.8-2.4)
== END 2024-09-29 17:47 | disposition home or self-care (01) ==
LOC: LBN 17:46
PROVIDERS: Visit Provider Nurse Practitioner Gerontology
DX: E83.42 Hypomagnesemia
CPT/HCPCS: 80053; 83735; 83880; 85025

== ENCOUNTER 2024-09-29 20:09 | Inpatient (IN) | payer MEDICARE, MEDICAID, SELFPAY ==
[2024-09-29] VITALS (43 sets, daily range): BP systolic 92–168; BP diastolic 65–116; PULSE 66–86; RESP 15–30; TEMP 36.6–36.7; O2SAT 2–98
--- NOTE | 2024-09-29 20:30 | DI.RAD_ITS ---
Exam(s) XR CHEST 2V PA LATERAL EXAM: XR CHEST 2V PA LATERAL CLINICAL HISTORY: shortness of breath TECHNIQUE: 2D digital imaging was performed of the chest. Two images were obtained. PA and lateral views were obtained. COMPARISON: CR CHEST 2 VIEWS PA,LAT from 02/21/2018 CR XR thoracic spine complete from 03/01/2019 FINDINGS: MEDIASTINUM: Normal. HEART: Heart is at the upper limits of normal in size. PULMONARY VASCULATURE: Normal. LUNGS: There is an opacity which appears to lie in the superior segment of the right lower lobe. The left lung is clear. PLEURAL SPACE: No pleural effusion or pneumothorax. BONE:Within normal limits for the patient's age. Old mid thoracic compression deformity is seen. OTHER FINDINGS:Normal. IMPRESSION: There is an opacity which appears to lie in the superior segment of the right lower lobe consistent w ith pneumonia. DATA REPOSITORY: RADIATION DOSE DELIVERED:
--- NOTE | 2024-09-29 20:30 | RT.EKG_ITS ---
APPROVED REPORT Exam: Resting ECG Reason for Exam: weakness Patient Location: E HR:70 bpm ECG Measurements Heart Rate 70 AXIS LA 166 P 35 QRSd 95 QRS 15 QT 396 T 12 QTc 424 Conclusion Sinus rhythm...normal P axis, V-rate 60- 99 Atrial premature complexes...SV complexes w/ short R-R intvls Consider inferior infarct...Q >35mS in II III aVF
[2024-09-29] MEDS: Albuterol/Ipratropium 3 ML UPD VIAL UPD (20:59)
[2024-09-29] MEDS: levoFLOXacin 750 MG/150 ML BAG 100 MG IVPB (21:00)
[2024-09-29] MEDS: methylPREDNISolone SUCC 125 MG VIAL 80 MG IVP (21:02)
[2024-09-29 21:06] LABS: Abs Immature Grans 0.34 10^3/uL (0.0-0.06); Absolute Monocyte Count 1.08 10^3/uL (0.1-0.8); Basophils % 0.2 %; HCT 37.4 % (36.0-46.0); HGB 11.7 g/dL (11.2-15.7); Immature Grans % 1.4 %; Lymphocytes % 4.8 %; MCH 27.1 pg (27.0-33.0); MCHC 31.3 % (32.0-36.0); MCV 87 fL (80-95); MPV 10.1 fL (8.0-11.0); Monocytes % 4.4 %; Platelet Count 342 10^3/uL (130-400); RBC 4.31 10^6/uL (3.93-5.22); RDW 15.9 % (11.7-14.6); RDW-SD 50.2 fL; WBC 24.63 10^3/uL (4.4-10.8)
[2024-09-29 21:14] LABS: Lactate 1.4 mmol/L (<or=2.0)
[2024-09-29 21:20] LABS: ALT 14 U/L (14-59); AST 7 U/L (15-37); Absolute Basophil Count 0.05 10^3/uL (0.0-0.2); Absolute Lymphocyte Count 1.18 10^3/uL (1.2-3.4); Absolute Neutrophil Count 21.97 10^3/uL (1.2-6.7); Albumin 2.9 g/dL (3.4-5.0); Alkaline Phosphatase 126 U/L (46-116); Anion Gap 7.1 mmol/L (3-11); BUN 9 mg/dL (7-18); Bilirubin, Total 0.63 mg/dL (0.2-1.0); CO2 28.9 mmol/L (21.0-32.0); CREATININE 0.8 mg/dL (0.55-1.02); Chloride 101 mmol/L (98-107); Estimated GFR 73.52 (mL/min/1.73m2); Glucose 152 mg/dL (74-106); Lipase 9 U/L (<78); Sodium 137 mmol/L (136-145); Total Protein 7.3 g/dL (6.4-8.2)
[2024-09-29 21:22] LABS: Diff Comment Agrees w/ Instrument; Neutrophils % 89.2 %; RBC Morphology Normal
[2024-09-29 21:27] LABS: Calcium 9.7 mg/dL (8.5-10.1)
[2024-09-29 21:35] LABS: NT-proBNP 547 pg/mL (<300); Troponin I 6 ng/L (<or=51)
[2024-09-29] MEDS: Normal Saline 500 ML IV (21:54)
--- NOTE | 2024-09-29 22:13 | DI.VRAD_ITS ---
PROCEDURE INFORMATION: Exam: XR Chest Exam date and time: 09/29/2024 9:31 PM Age: 84 years old Clinical indication: Shortness of breath; SOB TECHNIQUE: Imaging protocol: Radiologic exam of the chest. Views: 2 views. COMPARISON: CT CHEST LUNG CANCER SCREEN 03/01/2019 11:00 AM FINDINGS: Lungs: Mild vascular congestion. Right upper, middle and lower lobe airspace opacities, favors pneumonia. Pleural spaces: Unremarkable. No pleural effusion. No pneumothorax. Heart/Mediastinum: The heart demonstrates diffuse enlargement. Bones/joints: Unremarkable. IMPRESSION: Mild vascular congestion. Right upper, middle and lower lobe airspace opacities, favors pneumonia. Dictated and Authenticated by: Alexandria Baker MD. Orderin Walter Hahn MD
[2024-09-29 22:15] LABS: Troponin I 8 ng/L (<or=51)
[2024-09-29 22:33] LABS: COVID-19 PCR Negative (Negative); Influenza A PCR Negative (Negative); Influenza B PCR Negative (Negative); RSV PCR Negative (Negative)
[2024-09-29 22:39] LABS: Source NASOPHARYNX
--- NOTE | 2024-09-29 22:57 | HPE_ITS ---
Date of service: 09/29/24 Time of Service: 22:57 Assessment and Plan Assessment and plan (1) Community acquired pneumonia: Status: Acute Assessment and plan: With her age, hypoxia, elevated WBC, and multilobar pneumonia on the CXR I think reasonable to treat inpatient. Started on levofloxacin due to severe PCN allergy, continue this. (2) Hypoxic respiratory failure: Status: Acute Assessment and plan: H/o COPD but no oxygen at baseline. Stabe on 2 liters via NC. Treating pneumonia and COPD. Follow (3) COPD (chronic obstructive pulmonary disease): Status: Chronic Assessment and plan: Treat with steroids and bronchodilators. Transition steroid to prednisone in AM. She states she doesn't use her Trelegy at home. She may benefit from RT teaching prior to discharge. (4) Coronary artery disease: Status: Chronic Assessment and plan: H/o CAD, but current symptoms do not appear cardiac. EKG and troponins reassuring. H/o CHF, last echo with presevered LVEF after previous has reduced LVEF. Continue outpatient cardiac medications. (5) Atrial fibrillation: Status: Chronic Assessment and plan: currently in sinus. she is not anticoagulated and her [id number] is 6. Anticoagulation should certainly be considered, but will defer to PCP. (6) Former cigarette smoker: Status: Acute Assessment and plan: Encouraged ongoing cessation. She uses lozenges, can continue this prn. (7) DVT prophylaxis: Status: Acute Assessment and plan: enoxaparin History of Present Illness History of Present Illness Chief Complaint: short of breath Narrative: 84 yo female, former smoker with COPD, CAD with history of HFrEF, atrial fibrillation, and mild vascular dementia who was sent from the [facility] living for dyspnea and hypoxia and abnormal labs. She states she has been feeling more short of breath with some cough for the past 4 days. Some associated runny nose. Not making much sputum. She feels tired and lightheaded. She is nauseous, hasn't felt like eating or drinking much, but hasn't vomited. She had labs done today as an outpatient and WBC was 25, and this was part of why they sent her to the emergency room. She denies any aspiration or other triggering event. She states she doesn't take her inhaler regularly for COPD. Uses nicotene lozenges at times because she was a long time smoker. Review of Systems All systems reviewed & are unremarkable except as noted in HPI and below Constitutional Constitutional: Denies chills, Reports fatigue, Denies fever(s), Reports poor appetite and Denies weight gain Cardiovascular Cardiovascular: Denies chest pain, Denies edema and Denies irregular heart rhythm Endocrine Endocrine: Reports fatigue [facility] All Active Problems DVT prophylaxis (Acute) Hypoxic respiratory failure (Acute) Community acquired pneumonia (Acute) Respiratory failure (Acute) Pneumonia (Acute) Former cigarette smoker (Acute) Urinary incontinence (Acute) Polyosteoarthritis (Acute) Unspecified macular degeneration (Acute) Encounter for immunization (Acute) Allergic rhinitis due to animal (cat) (dog) hair and dander (Acute) Localized edema (Acute) Cough (Acute) Shortness of breath (Acute) Vascular dementia without behavioral disturbance (Acute) Cognitive communication deficit (Acute) Chronic combined systolic and diastolic heart failure (Acute) Irritable bowel syndrome with diarrhea (Acute) Major depressive disorder with single episode (Acute) Removal of crystal (Acute) Laceration of scalp (Acute) Head injury (Acute) Sprain of left upper arm (Acute) ASHD (arteriosclerotic heart disease) (Chronic) Lone atrial fibrillation (Acute) Atrial fibrillation (Chronic) NSTEMI (non-ST elevated myocardial infarction) (Acute) Coronary artery disease (Chronic) Dyslipidemia (Chronic) Hypertension (Chronic) Tobacco abuse (Chronic) Frequent headaches (Chronic) Colon polyps (Chronic) GERD (gastroesophageal reflux disease) (Chronic) Fibrocystic breast changes (Chronic) Osteoarthritis (Chronic) Depression (Chronic) Memory loss (Chronic) Insomnia (Chronic) PTSD (post-traumatic stress disorder) (Chronic) Seasonal allergies (Chronic) Chronic pain (Chronic) Fibromyalgia (Chronic) Vitamin B 12 deficiency (Chronic) COPD (chronic obstructive pulmonary disease) (Chronic) Medical History Hx of falling Bronchitis Adenocarcinoma of endometrium Other chronic pain fibromyalgia Hyperlipidemia Anxiety Benign hypertension Wrist fracture, right Surgical History Replacement of total knee joint (02/07/08) right Total replacement of hip (09/11/08) left hip, right hip, right ANGELINA revision femoral stem with open reduction and internal fixation of periprosthetic fracture with cerclage cables. Total replacement of hip (09/04/08) left hip, right hip, right ANGELINA revision femoral stem with open reduction and internal fixation of periprosthetic fracture with cerclage cables. Total replacement of hip (03/26/01) left hip, right hip, right ANGELINA revision femoral stem with open reduction and internal fixation of periprosthetic fracture with cerclage cables. Hyseterectomy, Total Laparoscopic w/ BSO Social History (Updated 09/30/24 @ 00:27 by Mike Acevedo) Smoking/Tobacco Use Status: Former Tobacco Use Quit Date: 05/01/16 Smoking risk assessment performed?: Yes Alcohol Intake: never Drug use: Never Substance use type: does not use Do you feel safe at home: Yes Do you feel safe in your relationship?: Yes Additional Social history: from [place], moved into [facility] living in 2021 Meds Allergies and Home Medications Allergies Allergy/AdvReac Type Severity Reaction Status Date / Time Penicillins Allergy Severe Anaphylaxsi Unverified 09/29/24 20:19 s codeine Allergy Unknown Unknown Verified 09/29/24 20:19 Home Medications ?Medication ?Instructions ?Recorded ?Confirmed ?Type citalopram 40 mg tablet (Celexa) 40 mg PO DAILY 03/02/13 09/29/24 History gabapentin 300 mg capsule 600 - 900 mg PO DIRECTED 03/09/13 09/29/24 History (Neurontin) bupropion HCl 100 mg tablet,12 hr 100 mg PO BID 08/22/13 09/29/24 History sustained-release (Wellbutrin SR) furosemide 20 mg tablet (Lasix) 20 mg PO DIRECTED 11/04/16 09/29/24 History nitroglycerin 0.4 mg sublingual 0.4 mg buccal Q5 MIN PRN X3 PRN 11/04/16 09/29/24 History tablet (Nitrostat) potassium chloride 10 mEq 10 meq PO DAILY 11/04/16 09/29/24 History capsule,extended release albuterol sulfate 90 mcg/actuation 2 puff inhalation Q4H PRN 10/26/17 09/29/24 History aerosol inhaler (Ventolin HFA) amlodipine 10 mg tablet (Norvasc) 10 mg PO DAILY 10/26/17 09/29/24 History cyanocobalamin (vitamin B-12) 1,000 mcg IM DIRECTED 10/26/17 09/29/24 History 1,000 mcg/mL injection kit (B-12 Compliance) ibuprofen 600 mg tablet 600 mg PO DAILY 07/11/21 09/29/24 History acetaminophen 325 mg tablet 325 mg PO ONCE PRN 11/26/22 09/29/24 History (Tylenol) aspirin 81 mg tablet,delayed 81 mg PO DAILY 11/26/22 09/29/24 History release (Adult Aspirin Regimen) famotidine 20 mg tablet 20 mg PO DAILY 11/26/22 09/29/24 History fluticasone fur. 100 mcg-umeclid 1 inh inhalation DAILY 11/26/22 09/29/24 History 62.5 mcg-vilant 25 mcg inhalat.powder (Trelegy Ellipta) fluticasone propionate 50 1 spray intranasal BID 11/26/22 09/29/24 History mcg/actuation nasal spray,suspension guaifenesin 100 mg/5 mL oral 200 mg PO Q4H PRN 11/26/22 09/29/24 History liquid (Adult Tussin Chest Congestion) loperamide 2 mg capsule 2 mg PO .COMPLEX PRN 11/26/22 09/29/24 History (Anti-Diarrheal (loperamide)) loratadine 10 mg tablet (Allergy 10 mg PO DAILY 11/26/22 09/29/24 History Relief (loratadine)) nicotrol inhaler cartridge See Rx Instructions .Route .COMPLEX 11/26/22 09/29/24 History vitamin B complex 1 tab PO DAILY 11/26/22 09/29/24 History cholestyramine (with sugar) 4 gram See Rx Instructions PO .COMPLEX 12/16/22 09/29/24 History oral powder Irritable Bowel Syndrome guaifenesin 100 mg/5 mL oral 200 mg PO Q4H PRN 12/16/22 09/29/24 History liquid (Tussin) losartan 25 mg tablet 25 mg PO DAILY 12/16/22 09/29/24 History metoprolol tartrate 25 mg tablet 50 mg PO BID 12/16/22 09/29/24 History promethazine 25 mg tablet 25 mg PO BID PRN 12/16/22 09/29/24 History promethazine 50 mg rectal See Rx Instructions [place] .COMPLEX 12/16/22 09/29/24 History suppository PRN nausea and vomiting umeclidinium 62.5 mcg/actuation 1 inh inhalation DAILY 12/16/22 09/29/24 History blister powder for inhalation (Incruse Ellipta) azithromycin 250 mg tablet 250 mg PO DAILY 09/29/24 09/29/24 History Exam Narrative Exam Narrative: GEN: Alert and oriented x 4, pleasant and cooperative, gives linear history with moderate detail. No acute distress at rest. HEENT: Head atraumatic. Conjunctiva clear, no icterus. PEERL, EOMI. no rhinorrhea. MMM, OP benign, edentulous. Neck is supple with no masses or lymphadenopathy, trachea midline LUNGS: CTA left. Right with slight rales and expiratory wheeze in mid lung field. Normal effort at rest CV: RRR with no murmurs, gallops, or rubs. ABD: active bowel sounds, soft, nontender and nondistended. No masses. EXT: no cyanosis, clubbing. Trace estela pedal edema, legs not tender MSK: No joint redness or swelling NEURO: CN 2-12 grossly intact. Normal movement of 4 extremities. Normal speech and coordination. No tremor SKIN: No rashes or open wounds. PSYCH: normal mood and affect, recent memory roughly intact Results Imaging Chest x-ray: report reviewed (right upper, middle, and lower lob infiltrates) and image reviewed EKG: report reviewed and image reviewed (NSR with some PACs, nl axis, intervals. No ST-T abnormalities. ) Labs 09/29/24 20:18 09/29/24 20:18 Labs: Laboratory Results - last 24 hr 09/29/24 09/29/24 09/29/24 20:18 21:09 21:12 WBC 24.63 H RBC 4.31 Hgb 11.7 Hct 37.4 MCV 87 MCH 27.1 MCHC 31.3 L RDW 15.9 H Plt Count 342 MPV 10.1 Immature Gran % 1.4 Neutrophils % 89.2 Lymphocytes % 4.8 Monocytes % 4.4 Eosinophils % 0.0 Basophils % 0.2 Nucleated RBC % 0.0 Absolute Neutrophils 21.97 H Absolute Lymphocytes 1.18 L Absolute Monocytes 1.08 H Absolute Eosinophils 0.00 Absolute Basophils 0.05 RBC Morphology Normal VBG Lactate 1.4 Sodium 137 Potassium 4.0 Chloride 101 Carbon Dioxide 28.9 Anion Gap 7.1 BUN 9 Creatinine 0.8 Est GFR (CKD-EPI 2020) 73.52 Glucose 152 H Calcium 9.7 Total Bilirubin 0.63 AST 7 L ALT 14 Alkaline Phosphatase 126 H Troponin I 6 8 NT-Pro-B Natriuret Pep 547 H Total Protein 7.3 Albumin 2.9 L Lipase 9 COVID-19 Source NASOPHARYNX SARS-CoV-2 (PCR) Negative Influenza Type A (PCR) Negative Influenza Type B (PCR) Negative RSV (PCR) Negative Last Vital Signs Temp 36.7 C 09/29/24 20:17 Pulse 71 09/29/24 21:46 Resp 27 H 09/29/24 22:00 BP 124/82 09/29/24 21:46 Pulse Ox 93 09/29/24 21:40 Time Spent Time spent with Patient: 55-74 minutes Time was spent: preparing to see the patient(eg.review tests), obtaining and/or reviewing separately otained hiistory, ordering medications,tests, procedures, referring, communicating with other health care management assistant, indepentently interpreting results, counseling the patient and care coordination
--- NOTE | 2024-09-29 23:17 | W.ED.GENAD ---
Discharge Plan Disposition Patient Disposition: Admit to [facility] Discharge Details Clinical Impression: Pneumonia, Respiratory failure Primary Care Provider: Unknown,Unknown ED Provider: Selma Watson Home Meds and New Rx's Prescriptions: No Action cholestyramine (with sugar) 4 gram powder See Rx Instructions PO .COMPLEX Rx Instructions: orally Prior to dinner disolved in 4-8oz H2O; losartan 25 mg tablet 25 mg PO DAILY guaifenesin [Tussin] 100 mg/5 mL liquid 200 mg PO Q4H PRN promethazine 25 mg tablet 25 mg PO BID PRN promethazine 50 mg suppository See Rx Instructions [place] .COMPLEX PRN (Reason: nausea and vomiting) Rx Instructions: rectally Q4-6 hours PRN; Incruse Ellipta 62.5 mcg/actuation blister with device 1 inh inhalation DAILY bupropion HCl [Wellbutrin SR] 100 MG tablet extended release 12 hr 100 mg PO BID potassium chloride 10 MEQ capsule, extended release 10 meq PO DAILY nitroglycerin [Nitrostat] 0.4 MG tablet, sublingual 0.4 mg Buccal Q5 MIN PRN X3 PRN furosemide [Lasix] 20 MG tablet 20 mg PO DIRECTED Patient Comments: every other day vitamin B complex Tablet 1 tab PO DAILY famotidine 20 mg tablet 20 mg PO DAILY aspirin [Adult Aspirin Regimen] 81 mg tablet,delayed release (DR/EC) 81 mg PO DAILY loratadine [Allergy Relief (loratadine)] 10 mg tablet 10 mg PO DAILY fluticasone propionate 50 mcg/actuation spray,suspension 1 spray intranasal BID Rx Instructions: administer into each nostril Trelegy Ellipta 100-62.5-25 mcg blister with device 1 inh inhalation DAILY acetaminophen [Tylenol] 325 mg tablet 325 mg PO ONCE PRN guaifenesin [Adult Tussin Chest Congestion] 100 mg/5 mL liquid 200 mg PO Q4H PRN nicotrol inhaler cartridge See Rx Instructions .ROUTE .COMPLEX Rx Instructions: as directed; loperamide [Anti-Diarrheal (loperamide)] 2 mg capsule 2 mg PO .COMPLEX PRN Rx Instructions: 2 mg orally as directed PRN; citalopram [Celexa] 40 MG tablet 40 mg PO DAILY Patient Comments: per pcp's office 40 mg daily gabapentin [Neurontin] 300 MG capsule 600 - 900 mg PO DIRECTED Patient Comments: 900 QHS metoprolol tartrate 25 mg tablet 50 mg PO BID ibuprofen 600 mg tablet 600 mg PO DAILY amlodipine [Norvasc] 10 MG tablet 10 mg PO DAILY albuterol sulfate [Ventolin HFA] 8 GM HFA aerosol inhaler 2 puff Inhalation Q4H PRN B-12 Compliance 1,000 MCG/ML kit 1,000 mcg IM DIRECTED Patient Comments: monthly azithromycin 250 mg tablet 250 mg PO DAILY HPI General Date/Time Provider Initiated Documentation: 09/29/24 20:19. HPI Narrative: This 84-year-old female with history of bronchitis, coronary artery disease, hyperlipidemia, Alzheimer's, COPD, hyperlipidemia adenocarcinoma presents with report of leukocytosis and fevers with increased work of breathing and oxygen requirement from the assisted living facility. Patient denies any nausea or vomiting. She does not wear oxygen. She denies any chest pain or abdominal pain. Denies any diarrhea. Patient reports she has been sick for approximately 1 week. Related Data Home Medications ?Medication ?Instructions ?Recorded ?Confirmed citalopram 40 mg tablet (Celexa) 40 mg PO DAILY 03/02/13 09/29/24 gabapentin 300 mg capsule 600 - 900 mg PO DIRECTED 03/09/13 09/29/24 (Neurontin) bupropion HCl 100 mg tablet,12 hr 100 mg PO BID 08/22/13 09/29/24 sustained-release (Wellbutrin SR) furosemide 20 mg tablet (Lasix) 20 mg PO DIRECTED 11/04/16 09/29/24 nitroglycerin 0.4 mg sublingual 0.4 mg buccal Q5 MIN PRN X3 PRN 11/04/16 09/29/24 tablet (Nitrostat) potassium chloride 10 mEq 10 meq PO DAILY 11/04/16 09/29/24 capsule,extended release albuterol sulfate 90 mcg/actuation 2 puff inhalation Q4H PRN 10/26/17 09/29/24 aerosol inhaler (Ventolin HFA) amlodipine 10 mg tablet (Norvasc) 10 mg PO DAILY 10/26/17 09/29/24 cyanocobalamin (vitamin B-12) 1,000 mcg IM DIRECTED 10/26/17 09/29/24 1,000 mcg/mL injection kit (B-12 Compliance) ibuprofen 600 mg tablet 600 mg PO DAILY 07/11/21 09/29/24 acetaminophen 325 mg tablet 325 mg PO ONCE PRN 11/26/22 09/29/24 (Tylenol) aspirin 81 mg tablet,delayed 81 mg PO DAILY 11/26/22 09/29/24 release (Adult Aspirin Regimen) famotidine 20 mg tablet 20 mg PO DAILY 11/26/22 09/29/24 fluticasone fur. 100 mcg-umeclid 1 inh inhalation DAILY 11/26/22 09/29/24 62.5 mcg-vilant 25 mcg inhalat.powder (Trelegy Ellipta) fluticasone propionate 50 1 spray intranasal BID 11/26/22 09/29/24 mcg/actuation nasal spray,suspension guaifenesin 100 mg/5 mL oral 200 mg PO Q4H PRN 11/26/22 09/29/24 liquid (Adult Tussin Chest Congestion) loperamide 2 mg capsule 2 mg PO .COMPLEX PRN 11/26/22 09/29/24 (Anti-Diarrheal (loperamide)) loratadine 10 mg tablet (Allergy 10 mg PO DAILY 11/26/22 09/29/24 Relief (loratadine)) nicotrol inhaler cartridge See Rx Instructions .Route .COMPLEX 11/26/22 09/29/24 vitamin B complex 1 tab PO DAILY 11/26/22 09/29/24 cholestyramine (with sugar) 4 gram See Rx Instructions PO .COMPLEX 12/16/22 09/29/24 oral powder Irritable Bowel Syndrome guaifenesin 100 mg/5 mL oral 200 mg PO Q4H PRN 12/16/22 09/29/24 liquid (Tussin) losartan 25 mg tablet 25 mg PO DAILY 12/16/22 09/29/24 metoprolol tartrate 25 mg tablet 50 mg PO BID 12/16/22 09/29/24 promethazine 25 mg tablet 25 mg PO BID PRN 12/16/22 09/29/24 promethazine 50 mg rectal See Rx Instructions [place] .COMPLEX 12/16/22 09/29/24 suppository PRN nausea and vomiting umeclidinium 62.5 mcg/actuation 1 inh inhalation DAILY 12/16/22 09/29/24 blister powder for inhalation (Incruse Ellipta) azithromycin 250 mg tablet 250 mg PO DAILY 09/29/24 09/29/24 Allergies Allergy/AdvReac Type Severity Reaction Status Date / Time Penicillins Allergy Severe Anaphylaxsi Unverified 09/29/24 20:19 s codeine Allergy Unknown Unknown Verified 09/29/24 20:19 General Stated Complaint: RespSymp MARY: 3 Exam Narrative Exam Narrative: 84-year-old female, alert, oriented, pleasant, conversant, pupils equal round reactive to light and accommodation, crackles and rhonchi throughout right lobe, sinus rhythm, no abdominal tenderness 1+ edema extremity Course Vital Signs Vital signs: Vital Signs Temperature 36.6 C 09/29/24 20:10 Pulse 72 09/29/24 20:10 Respiratory Rate 18 09/29/24 20:10 Blood Pressure 168/77 H 09/29/24 20:10 Pulse Oximetry 88 L 09/29/24 20:10 Temperature 36.7 C 09/29/24 20:17 Temperature Source Temporal Artery Scan 09/29/24 20:17 Pulse 69 09/29/24 23:01 Pulse 68 09/29/24 23:01 Respiratory Rate 17 09/29/24 23:01 Respiratory Effort Non-Labored 09/29/24 20:35 Respiratory Depth Normal 09/29/24 20:35 Blood Pressure 124/88 09/29/24 23:01 Blood Pressure Mean 97 09/29/24 23:01 Blood Pressure Position Supine 09/29/24 20:17 Pulse Oximetry 93 09/29/24 23:01 Oxygen Delivery Method Nasal Cannula 09/29/24 20:17 Oxygen Flow Rate 2 09/29/24 20:17 Pain Level 0 09/29/24 20:17 Lab/Test Results Lab/Test Results: 09/29/24 20:29 Blood Blood Culture - Pending 09/29/24 20:15 Blood Blood Culture - Pending Laboratory Tests Range/Units 09/29/24 09/29/24 09/29/24 20:18 21:09 21:12 WBC (4.4-10.8) 10^3/uL 24.63 H RBC (3.93-5.22) 10^6/uL 4.31 Hgb (11.2-15.7) g/dL 11.7 Hct (36.0-46.0) % 37.4 MCV (80-95) fL 87 MCH (27.0-33.0) pg 27.1 MCHC (32.0-36.0) % 31.3 L RDW (11.7-14.6) % 15.9 H Plt Count (130-400) 10^3/uL 342 MPV (8.0-11.0) fL 10.1 Immature Gran % % 1.4 Neutrophils % % 89.2 Lymphocytes % % 4.8 Monocytes % % 4.4 Eosinophils % % 0.0 Basophils % % 0.2 Nucleated RBC % (0.0-0.3) % 0.0 Absolute Neutrophils (1.2-6.7) 10^3/uL 21.97 H Absolute Lymphocytes (1.2-3.4) 10^3/uL 1.18 L Absolute Monocytes (0.1-0.8) 10^3/uL 1.08 H Absolute Eosinophils (0.0-0.7) 10^3/uL 0.00 Absolute Basophils (0.0-0.2) 10^3/uL 0.05 RBC Morphology Normal VBG Lactate (<or=2.0) mmol/L 1.4 Sodium (136-145) mmol/L 137 Potassium (3.5-5.1) mmol/L 4.0 Chloride (98-107) mmol/L 101 Carbon Dioxide (21.0-32.0) mmol/L 28.9 Anion Gap (3-11) mmol/L 7.1 BUN (7-18) mg/dL 9 Creatinine (0.55-1.02) mg/dL 0.8 Est GFR (CKD-EPI 2020) (mL/min/1.73m2) 73.52 Glucose (74-106) mg/dL 152 H Calcium (8.5-10.1) mg/dL 9.7 Total Bilirubin (0.2-1.0) mg/dL 0.63 AST (15-37) U/L 7 L ALT (14-59) U/L 14 Alkaline Phosphatase (46-116) U/L 126 H Troponin I (<or=51) ng/L 6 8 NT-Pro-B Natriuret Pep (<300) pg/mL 547 H Total Protein (6.4-8.2) g/dL 7.3 Albumin (3.4-5.0) g/dL 2.9 L Lipase (<78) U/L 9 COVID-19 Source NASOPHARYNX SARS-CoV-2 (PCR) (Negative) Negative Influenza Type A (PCR) (Negative) Negative Influenza Type B (PCR) (Negative) Negative RSV (PCR) (Negative) Negative Medical Decision Making Alert and oriented 84-year-old female in no acute distress, presenting with report of hypotension and respiratory failure with fevers from patient's longterm. She on arrival is hypertensive and has increased work of breathing. Patient received steroids, IV Levaquin secondary to penicillin anaphylaxis, chest x-ray, diagnostic lab, leukocytosis at 24,000 with shift. Lactate and Trope within normal limits, BNP mildly elevated at 500 but low suspicion for CHF clinically. Patient feels improvement after DuoNeb and steroids. EKG was ordered prior to initiating Levaquin and there is no prolongation of qtc. At that time, patient requires admission to the hospital secondary to acute respiratory failure, pneumonia, sepsis, Discussed with Dr. Tripathi Who Admit Patient to His Service. Patient Is DNR/DNI This Was Confirmed with Patient and Her Daughter Quality:[facility] Health Related Social Needs: No Data to Display Critical Care Time Critical Care Time Attestation: 45 minutes of critical care time secondary to pneumonia, sepsis, acute respiratory failure requiring oxygen supplementation, diagnostic EKG interpretation and review, diagnostic lab interpretation and review, consultation and admission by the hospitalist, and telemetry monitoring [facility] All Active Problems (Updated 09/29/24 @ 23:37 by JURGEN Regalado) Respiratory failure (Acute) Pneumonia (Acute) Former cigarette smoker (Acute) Urinary incontinence (Acute) Polyosteoarthritis (Acute) Unspecified macular degeneration (Acute) Encounter for immunization (Acute) Allergic rhinitis due to animal (cat) (dog) hair and dander (Acute) Localized edema (Acute) Cough (Acute) Shortness of breath (Acute) Vascular dementia without behavioral disturbance (Acute) Cognitive communication deficit (Acute) Chronic combined systolic and diastolic heart failure (Acute) Irritable bowel syndrome with diarrhea (Acute) Major depressive disorder with single episode (Acute) Sprain of left upper arm (Acute) Head injury (Acute) Laceration of scalp (Acute) Removal of crystal (Acute) ASHD (arteriosclerotic heart disease) (Chronic) Lone atrial fibrillation (Acute) Atrial fibrillation (Chronic) NSTEMI (non-ST elevated myocardial infarction) (Acute) Coronary artery disease (Chronic) Dyslipidemia (Chronic) Hypertension (Chronic) Tobacco abuse (Chronic) Frequent headaches (Chronic) Colon polyps (Chronic) GERD (gastroesophageal reflux disease) (Chronic) Fibrocystic breast changes (Chronic) Osteoarthritis (Chronic) Depression (Chronic) Memory loss (Chronic) Insomnia (Chronic) PTSD (post-traumatic stress disorder) (Chronic) Seasonal allergies (Chronic) Chronic pain (Chronic) Fibromyalgia (Chronic) Vitamin B 12 deficiency (Chronic) COPD (chronic obstructive pulmonary disease) (Chronic) Medical History (Updated 09/29/24 @ 23:37 by JURGEN Regalado) Hx of falling Bronchitis Adenocarcinoma of endometrium Other chronic pain fibromyalgia Hyperlipidemia Anxiety Benign hypertension Wrist fracture, right Surgical History Replacement of total knee joint (02/07/08) right Total replacement of hip (09/11/08) left hip, right hip, right ANGELINA revision femoral stem with open reduction and internal fixation of periprosthetic fracture with cerclage cables. Total replacement of hip (09/04/08) left hip, right hip, right ANGELINA revision femoral stem with open reduction and internal fixation of periprosthetic fracture with cerclage cables. Total replacement of hip (03/26/01) left hip, right hip, right ANGELINA revision femoral stem with open reduction and internal fixation of periprosthetic fracture with cerclage cables. Hyseterectomy, Total Laparoscopic w/ BSO Social History Smoking/Tobacco Use Status: Former Tobacco Use Quit Date: 05/01/16 Smoking risk assessment performed?: Yes Alcohol Intake: never Drug use: Never Substance use type: does not use Do you feel safe at home: Yes Do you feel safe in your relationship?: Yes
[2024-09-30] VITALS (8 sets, daily range): BP systolic 121–145; BP diastolic 68–82; PULSE 77–90; RESP 15–22; TEMP 36.4–37.2; O2SAT 89–94
[2024-09-30 00:22] LABS: Troponin I < 4 ng/L (<or=51)
--- NOTE | 2024-09-30 00:46 | W.PC.ACHO ---
Registration Status: Primary Language: Preferred Language: ED Information & Data Chief Complaint RespSymp 09/29/24 23:20 Triage Note brought in by EMS from the 09/29/24 20:10 [facility] for WBC of 25. The [facility] reports cough, achy, and lethargy since thursday. Pt A&Ox4, sats on RA on EMS arrival 89-90%, 4L NC placed by EMS up to 94%, c/o nausea, 4mg IV zofran enroute. 20g R hand. 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 (09/11/08) Total replacement of hip (09/04/08) Total replacement of hip (03/26/01) Hyseterectomy, Total Laparoscopic w/ BSO Most Recent Vital Signs Temperature 36.7 C 09/29/24 20:17 Temperature Source Temporal Artery Scan 09/29/24 20:17 Pulse 71 09/29/24 23:50 Pulse 72 09/29/24 23:50 Respiratory Rate 22 09/29/24 23:50 Respiratory Effort Non-Labored 09/29/24 20:35 Respiratory Depth Normal 09/29/24 20:35 Blood Pressure 137/70 09/29/24 23:45 Blood Pressure Mean 92 09/29/24 23:45 Blood Pressure Position Supine 09/29/24 20:17 Pulse Oximetry 94 09/29/24 23:50 Oxygen Delivery Method Nasal Cannula 09/29/24 20:17 Oxygen Flow Rate 2 09/29/24 20:17 Pain Level 0 09/29/24 20:17 Allergies Penicillins Allergy (Severe, Unverified 09/29/24 20:19) Anaphylaxsis codeine Allergy (Unknown, Verified 09/29/24 20:19) Unknown Precautions Isolation PUI 09/29/24 20:17 IV IV Catheter Type [Left Peripheral IV Antecubital] IV Catheter Type [Right Hand] Peripheral IV IV Catheter Gauge [Left 18 Antecubital] IV Catheter Gauge [Right Hand] 20 Diet Orders Category Date Time Status Heart Healthy Eating [DIET] Nutrition 09/30/24 Breakfast Active Diagnostics 09/30/24 09/29/24 09/29/24 Range/Units 05:35 23:58 21:12 WBC Pending (4.4-10.8) 10^3/uL RBC Pending (3.93-5.22) 10^6/uL Hgb Pending (11.2-15.7) g/dL Hct Pending (36.0-46.0) % MCV Pending (80-95) fL MCH Pending (27.0-33.0) pg MCHC Pending (32.0-36.0) % RDW Pending (11.7-14.6) % Plt Count Pending (130-400) 10^3/uL MPV Pending (8.0-11.0) fL Immature Gran % Pending % Neutrophils % Pending % Lymphocytes % Pending % Monocytes % Pending % Eosinophils % Pending % Basophils % Pending % Nucleated RBC % (0.0-0.3) % Absolute Neutrophils Pending (1.2-6.7) 10^3/uL Absolute Lymphocytes Pending (1.2-3.4) 10^3/uL Absolute Monocytes Pending (0.1-0.8) 10^3/uL Absolute Eosinophils Pending (0.0-0.7) 10^3/uL Absolute Basophils Pending (0.0-0.2) 10^3/uL RBC Morphology VBG Lactate (<or=2.0) mmol/L Sodium (136-145) mmol/L Potassium (3.5-5.1) mmol/L Chloride (98-107) mmol/L Carbon Dioxide (21.0-32.0) mmol/L Anion Gap (3-11) mmol/L BUN (7-18) mg/dL Creatinine (0.55-1.02) mg/dL Est GFR (CKD-EPI 2020) (mL/min/1.73m2) Glucose (74-106) mg/dL Calcium (8.5-10.1) mg/dL Total Bilirubin (0.2-1.0) mg/dL AST (15-37) U/L ALT (14-59) U/L Alkaline Phosphatase (46-116) U/L Troponin I < 4 8 (<or=51) ng/L NT-Pro-B Natriuret Pep (<300) pg/mL Total Protein (6.4-8.2) g/dL Albumin (3.4-5.0) g/dL Lipase (<78) U/L COVID-19 Source SARS-CoV-2 (PCR) (Negative) Influenza Type A (PCR) (Negative) Influenza Type B (PCR) (Negative) RSV (PCR) (Negative) 09/29/24 09/29/24 Range/Units 21:09 20:18 WBC 24.63 H (4.4-10.8) 10^3/uL RBC 4.31 (3.93-5.22) 10^6/uL Hgb 11.7 (11.2-15.7) g/dL Hct 37.4 (36.0-46.0) % MCV 87 (80-95) fL MCH 27.1 (27.0-33.0) pg MCHC 31.3 L (32.0-36.0) % RDW 15.9 H (11.7-14.6) % Plt Count 342 (130-400) 10^3/uL MPV 10.1 (8.0-11.0) fL Immature Gran % 1.4 % Neutrophils % 89.2 % Lymphocytes % 4.8 % Monocytes % 4.4 % Eosinophils % 0.0 % Basophils % 0.2 % Nucleated RBC % 0.0 (0.0-0.3) % Absolute Neutrophils 21.97 H (1.2-6.7) 10^3/uL Absolute Lymphocytes 1.18 L (1.2-3.4) 10^3/uL Absolute Monocytes 1.08 H (0.1-0.8) 10^3/uL Absolute Eosinophils 0.00 (0.0-0.7) 10^3/uL Absolute Basophils 0.05 (0.0-0.2) 10^3/uL RBC Morphology Normal VBG Lactate 1.4 (<or=2.0) mmol/L Sodium 137 (136-145) mmol/L Potassium 4.0 (3.5-5.1) mmol/L Chloride 101 (98-107) mmol/L Carbon Dioxide 28.9 (21.0-32.0) mmol/L Anion Gap 7.1 (3-11) mmol/L BUN 9 (7-18) mg/dL Creatinine 0.8 (0.55-1.02) mg/dL Est GFR (CKD-EPI 2020) 73.52 (mL/min/1.73m2) Glucose 152 H (74-106) mg/dL Calcium 9.7 (8.5-10.1) mg/dL Total Bilirubin 0.63 (0.2-1.0) mg/dL AST 7 L (15-37) U/L ALT 14 (14-59) U/L Alkaline Phosphatase 126 H (46-116) U/L Troponin I 6 (<or=51) ng/L NT-Pro-B Natriuret Pep 547 H (<300) pg/mL Total Protein 7.3 (6.4-8.2) g/dL Albumin 2.9 L (3.4-5.0) g/dL Lipase 9 (<78) U/L COVID-19 Source NASOPHARYNX SARS-CoV-2 (PCR) Negative (Negative) Influenza Type A (PCR) Negative (Negative) Influenza Type B (PCR) Negative (Negative) RSV (PCR) Negative (Negative) 09/29/24 20:29 Blood Culture - Pending Blood 09/29/24 20:15 Blood Culture - Pending Blood Intake and Output - 24 Hour Total 09/29/24 19:37 thru 09/29/24 20:17 Intake Total 20 Balance 20 Weight 90 kg Intake: IV 20 Falls Risk Assessment History of Falls Previous History 09/29/24 20:17 Contributing Factors Confusion,Unstable, 09/29/24 20:17 Impairments,Incontinence, Medications Ambulatory Aids Uses ambulatory device 09/29/24 20:17 Tubes/Lines With any additional score 09/29/24 20:17 Gait Evaluation W/any additional score 09/29/24 20:17 Cognition No cognitive impairment 09/29/24 20:17 Fall Total Score 85 09/29/24 20:17 Level of Risk Maximum Risk 09/29/24 20:17 Problems (Last Reviewed 09/30/24 @ 00:26 by Mike Acevedo) DVT prophylaxis (Acute) Hypoxic respiratory failure (Acute) Community acquired pneumonia (Acute) Former cigarette smoker (Acute) Atrial fibrillation (Chronic) Coronary artery disease (Chronic) COPD (chronic obstructive pulmonary disease) (Chronic) v v v v v v v v v Sending and/or Receiving Nurses: Please use comment section below to note any information pertinent to the patient hand-off not included above. Information / Comments: Pt received 500mL bolus, neb treatment. 96% on 3L. Levaquin at 21:30, new one needs to be retimed. Needs urine sample. Report received from: Mee Sánchez RN
[2024-09-30] MEDS: Gabapentin 300 MG CAP 600 MG PO ×2 (00:51→20:13)
--- OUTSIDE RECORDS SUMMARY | 2024-09-30 01:26 | XMS_ITS | Clinical Summary ---
Author Organization [facility] Address [facility] [place] [address] Care Team Providers Care Primer Assembler Name Role Phone Ana Dwyer MD Primary Care Provider [phone] Allergies Active Allergy Reactions Criticality Noted Date Comments Cephalosporins Medium CIS - Hives Lisinopril Medium CIS - Hives Penicillins High CIS - Hives Sulfa (Sulfonamide Antibiotics) Medium CIS - Hives Medications Medication Sig Dispensed Refills Start Date End Date Status ibuprofen (ADVIL;MOTRIN) 600 mg tablet 600 MG = 1 Tablet(s), PO, Q6H 04/23/2010 Active docusate sodium (COLACE) 100 mg capsule 100 MG = 1 Capsule(s), PO, Twice daily,PRN 04/23/2010 Active amLODIPine (NORVASC) 10 mg Tablet Take 10 mg by mouth daily. Active gabapentin (NEURONTIN) 300 mg Capsule Take 600 mg by mouth every evening. Active gabapentin (NEURONTIN) 300 mg Capsule Take 900 mg by mouth nightly. Active omeprazole 20 mg Tablet, Delayed Release (E.C.) Take 20 mg by mouth. Active metoprolol tartrate (LOPRESSOR) 25 mg Tablet Take 25 mg by mouth 2 times daily. Active atorvastatin (LIPITOR) 40 mg Tablet Take 1 tablet by mouth every evening. 90 tablet 3 02/26/2018 Active aspirin 81 mg Tablet, Delayed Release (E.C.) Take 1 tablet by mouth daily. 30 tablet 1 02/27/2018 Active ipratropium-albuter ol (DUONEB) 0.5 mg-3 mg(2.5 mg base)/3 mL Solution for Nebulization Take 0.5 mg by nebulization every 4 hours as needed. 1 Box 4 02/26/2018 Active citalopram (CELEXA) 40 mg Tablet Take 1 tablet by mouth daily. 30 tablet 1 02/26/2018 Active nicotine polacrilex (NICORETTE) 2 mg Gum Take 1 each by mouth every 2 hours as needed for Smoking cessation. 02/26/2018 Active nicotine (NICODERM CQ) 21 mg/24 [address] 1 patch onto the skin daily. 28 patch 02/26/2018 Active loperamide (IMODIUM A-D) 2 mg Tablet Take 1 tablet by mouth 4 times daily as needed for Diarrhea. 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 NRT ordered. Given [facility] [place] Tobacco Treatment packet Alcohol Use Standard Drinks/Week Comments No 0 (1 standard drink = 0.6 oz pur e alcohol) Sex and Gender Information Value Date Recorded Sex Assigned at Not on file Gender Identity Not on file Sexual Orientation Not on file Last Filed Vital Signs Vital Sign Reading Time Taken Comments Blood Pressure 147/87 02/26/2018 11:34 AM EDT Pulse 73 02/26/2018 11:34 AM EDT Temperature 36.6 ??C (97.9 ??F) 02/26/2018 11:34 AM E DT Respiratory Rate 18 02/26/2018 11:34 AM EDT Oxygen Saturation 91% 02/26/2018 3:59 AM EDT Inhaled Oxygen Concentration - - Weight 60.1 kg (132 lb 7.9 oz) 02/26/2018 6:52 A M EDT Height 157.5 cm (5' 2) 02/22/2018 4:15 PM EDT Body Mass Index 24.23 02/22/2018 4:15 PM EDT Plan of Treatment Health Maintenance Due Date Last Done Comments Tetanus/Diphtheria/Pertussis Vaccines (1 - Tdap) 09/16 Zoster vaccine (1 of 2) 1992 Advance Directive 1997 Bone Density Scan 2007 Pneumoccocal Vaccine: 50+ (2 of 2 - PCV) 08/31/2008 08/31/2007 RSV Vaccine (1 - 1-dose 75+ series) 2017 Covid-19 Vaccine (1 - 2023- season) 2024 Influenza (Flu) vaccine (1 o f 1 - Influenza standard series) 05/01/2024 05/31/2009 Advance Directives * Full Code (Latest Code Status on File) Date Activated Date Inactivated Comments 02/22/2018 5:05 PM 02/26/2018 4:53 PM Question Answer Comments Does patient have capacity to make decision: Yes Care Teams Primer Assembler Relationship Specialty Start Date End Date Ana Dwyer MD [address] [place] [address] PCP - General Family Medicine 10/30/17
--- OUTSIDE RECORDS SUMMARY | 2024-09-30 01:26 | XMS_ITS | Encounter Summary ---
Author Organization [facility] Address [facility] [place] [address] Care Team Providers Care Risk Control Field Representative Name Role Phone Ana Dwyer MD Primary Care Provider [phone] Reason for Referral * Consultation (Routine) - Closed Specialty Diagnoses / Procedures Referred By Maria T latif Referred To Contact Unknown Specialty Diagnoses Tobacco abuse Arsh Jose Jr., MD [facility] [place] [address] [address] [place] [address] Referral ID Status Reason Start Date Expiration Date V isits Requested Visits Authorized [id number] Closed Consult Only 02/23/2018 08/22/2018 1 1 Reason for Visit * Auth/Cert Specialty Diagnoses / Procedures Referred By Maria T latif Referred To Contact Diagnoses NSTEMI (non-ST elevated myocardial infarction) NSTEMI Referral ID Status Reason Start Date Expiration Date Visits Re quested Visits Authorized [id number] 1 1 Encounter Details Date Type Department Care Team (Latest Contact Info) Description 02/22/2018 4:00 PM EDT - 02/26/2018 2:48 PM EDT Hospital Encounter Intermediate [place] [address] Chavez Dorantes MD [facility] [place] [id number] Joel Leggett MD [facility] [place] [place] [address] Chest pain, unspecified type; Tobacco abuse Discharge Disposition: Rehab Center in a Facility Social History Tobacco Use Types Packs/Day Years Used Date Smoking Tobacco: Former Cigarettes 1 63 0 [birth year]/1955 - 02/23/2018 Smokeless Tobacco: Never Tobacco Cessation:Counseling Given: Yes Comments:Received tobacco cessation consult. NRT ordered. Given [facility] Tobacco Treatment packet Alcohol Use Standard Drinks/Week Comments No 0 (1 standard drink = 0.6 oz pur e alcohol) Sex and Gender Information Value Date Recorded Sex Assigned at Not on file Gender Identity Not on file Sexual Orientation Not on file documented as of this encounter Last Filed Vital Signs Vital Sign Reading [...] Mass Index 24.23 02/22/2018 4:15 PM EDT documented in this encounter Discharge Summaries * Arsh Jose Jr. - 02/26/2018 1:15 PM EDT Discharge Summary Patient Name: Danette George Patient Age: 77 y.o. Language: Indonesian Race: White Ethnicity: Not nor Admit date: 02/22/2018 Discharge date and time: 02/26/18 2:32 PM Attending Physician: Joel Leggett MD Discharge Physician: Justyn Blanchard MD Follow-up Recommendations for Providers: Stress Cardiomyopathy: - Cardiology follow-up - Repeat echocardiogram in 4-6 weeks COPD Exacerbation: - We recommend outpatient therapy with daily long-acting inhaled anticholinergics, with or without long-acting inhaled beta agonists, plus rescue inhalers for acute episodes of dyspnea HTN: - Continue home therapy with metoprolol and amlodipine as prescribed prior to admission Chronic Pain: - Use citalopram 40 mg daily - Continue home regimen of ibuprofen, gabapentin, and fentanyl patches - Limit opiate/opioid medications as symptoms allow GERD: - Continue home regimen of omeprazole 20 mg daily Tobacco Cessation - Use nicotine patches daily and gum as needed for cravings Inpatient Provider Contact Information: For questions regarding this document or issues relating to this hospitalization on the Medical Service, please contact your inpatient physician through the [facility] Electric Engine Mechanic . Issues afterhours and on weekends will be handled by the Hospitalist staff on-call. Discharge Diagnoses (Hospital Problems) and Secondary Diagnoses (Chronic Problems): Active Hospital Problems Diagnosis ??? Stress-induced cardiomyopathy ??? Hypertension Resolved Hospital Problems Diagnosis Date Resolved ??? COPD with exacerbation 02/26/2018 Active Non-Hospital Problems Diagnosis ??? Fibromyalgia ??? Seborrheic keratosis ??? Nevus Operations/Major Procedures: Operations: None Other Major Procedures: - Cardiac catheterization 02/25/18 History of Presentation: per Dr. Dewayne Jarquin in the admission note: Ms. Danette George is a 77-year old female with a PMH of COPD, Vitamin B12 Deficiency, PTSD, Lung Nodule, Memory Loss, Depression, OA, Fibrocystic Breast Disease, MDD, OA, History of Colitis with prior LGIB, GERD, History of Colon Polyps and Chronic Pain (on Narcotic Therapy) who presented to [facility] with dyspnea and cough, found to have inferolateral WMA with cardiac biomarker elevation concerning for NSTEMI. ?? The patient states that over the past two days, she has had progressively worsening cough associated with purulent sputum production, as well as dyspnea on exertion. She has had coinciding rhinorrhea, malaise, and fatigue; she denies any recent sick contacts or recent travel. The patient's cough has become increasingly more frequent, and is associated with yellow-green sputum. It is mildly relieved with PRN anti-tussives. She denies any associated weight gain or PND, but does endorse orthopnea.Rather, she has lost 30 lbs. Unintentionally over the past 12 months. She is an active smoker with a 60-PYH. She denies any lower extremity edema or prolonged periods of immobilization. With regards to the patient's dyspnea, she states that it is present at rest, and is worsened with any degree of exertion. She completely denies any recent or remote history of chest pain, palpitations, lightheadedness, dizziness, nausea or vomiting. She denies any family history of premature CAD. When inquired about history of prior ASCVD (noted on OSH records - alleged [facility] in 1996), the patient states that, I can't quite remember; I don't remember any of that. 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 ?? While at the OSH ([facility]), the patient was treated for presumed COPD exacerbation with Levofloxacin, Solu-Medrol and bronchodilators. The patient was noted to have inferolateral WMA on TTE, with Troponin elevation (0.18 --> 1.13 --> 1.37) . No CK was available for review. EKG was not available for review, however, a description of the findings was enclosed, and detailed: normal sinus rhythm with normal axis, questionable ALFONSO. Downward reflecting inferolateral Q-waves; unchanged from prior tracing in 2013. T-wave flattening isolated in aVL. She has ASA/Plavix loaded and initiated on a Heparin drip. ?? At this time, the patient denies any chest pain, diarrhea, melena, hematochezia, syncopal events, lightheadedness, dizziness, nausea or vomiting. She has been maintaining good PO intake. She does endorse significant shortness of breath, at rest, which has improved with supplemental oxygen. Hospital Course: Stress Cardiomyopathy: As noted above, Ms. George was transferred to [facility] from [facility] following an elevation in cardiac enzymes. On 02/23, a TTE was performed that showed LVEF of 63% with left ventricular wall motion abnormalities in the apical septal, apical anterior, apical lateral, and apical inferiorwall segments. This result raised concern for NSTEMI and Ms. George was started on dual antiplatelet th erapy with aspirin and clopidogrel and a heparin drip in preparation for cardiac catheterization. The risks and benefits of cardiac catheterization were discussed with Ms. George, though she declined the procedure on 02/23 and 02/24. Dual antiplatelet therapy was continued, as was the heparin drip for 48 hours. On 02/25, Ms. George elected for cardiac catheterization, which showed no evidence of coronary artery disease. Cardiac enzyme elevations were likely secondary to a stress cardiomyopathy in the context of a COPD exacerbation. Dual antiplatelet therapy was discontinued on 02/25. COPD Exacerbation: Treatment for Ms. George's COPD exacerbation started the day prior to admission at [facility] and included a 40 mg dose of prednisone, one day of levofloxacin therapy, and [id number] nebulizer treatments (ipratropium- albuterol Duoneb). At [facility] she was placed on oxygen therapy by nasal cannula and the prednisone, levofloxacin, and Duoneb therapies were continued to a total of 5 days, finishing on 02/25 (Duoneb changed to PRN on 02/24, discontinued at discharge). At that time (02/25), Ms. George was no longer requiring supplemental oxygen and her symptoms had significantly improved. Hypertension: Amlodipine was held at admission and Ms. George was given metoprolol tartrate 12.5 mg four times daily in the hospital, equivalent to her home dose of metoprolol tartrate 25 mg twice daily. She was normotensive throughout most of her hospitalization, becoming hypertensive the day prior to and day of discharge. She will be discharged on her prior home medication regimen. Fibromyalgia: Home medications citalopram, gabapentin, and fentanyl patches were continued in the hospital. Vital Signs at Discharge: BP: 147/87, Heart Rate: 73, Temp: 36.6 ??C (97.9 ??F), Resp: 18, BMI (Calculated): 24.8 Height: 157.5 cm (5' 2) (02/22/18 1615) Weight: 60.1 kg (132 lb 7.9 oz) (02/26/18 0652) Functional and Cognitive Status: Baseline for patient Important Studies and Lab Data: Labs: Last 3 Lytes Recent Labs 02/26/18 0555 02/25/18 0457 02/24/18 0527 NA 140 138 136 K 3.8 3.5 3.4* CL 103 101 98 CO2 23 26 27 BUN 12 8 8 CREATININE 0.48* 0.44* 0.48* Last Ca, Mg, Phos Recent Labs 02/26/18 0555 CALCIUM 8.8 Last 3 Coags Recent Labs 02/22/18 1745 PT 11.6 INR 1.0 PTT 30 Last 3 ProBNP, Trop, CK Recent Labs 02/23/18 0600 02/22/18 2358 02/22/18 1745 CK 143 164* 123 TROPONINT 0.29* 0.34* 0.20* Last 3 CBC 02/26/18 0555 02/25/18 0457 02/24/18 0527 WBC 7.5 7.2 8.6 HGB 12.9 12.7 12.4 HCT 39.0 38.8 36.9 PLATELET 239 236 231 Studies: Chest X-Ray 02/23/18: No focal consolidation, pleural effusion or pulmonary edema is identified. The lungs are again hyperinflated. There is unchanged linear scarring in the right lung base. An apparent nodular opacity inthe right lung apex likely reflects overlapping vessels as it was not seen previously. Old bilateral rib fractures are again noted. Comparison: 02/21/2018 Transthoracic Echocardiogram 02/23/18: SUMMARY: ?? 1. Technically limited 2. There is normal global left ventricular systolic function. The quantitative left ventricular ejection fraction by biplane Lund's method is 63%. The apical septal, apical anterior, apical lateral, and apical inferior wall segments are akinetic (score 3). 3. Right ventricular chamber size, wall thickness, and systolic function are within normal limits. 4. The left atrium is mildly dilated.35 ml/m2. Other chamber and aortic dimensions are normal. 5. No significant valvular disease. 6. The pericardium appears normal and there is no evidence of a pericardial effusion. With contrast, no definite LV thrombus is identified. No prior study to compare to. In the right clinical setting, and if no significant coronary disease, the wall motion could be consistent with stress induced cardiomyopathy. ? Findings : ?? Study Quality: Technically limited ?? Left Ventricle: The left ventricular chamber size is normal. Left ventricular wall thickness is normal. There is normal global left ventricular systolic function. The quantitative left ventricular ejection fraction by biplane Lund's method is 63%. The visually estimated EF 55-60% There are left ventricular segmental wall motion abnormalities present, as shown in the diagram below. The left ventricular diastolic filling pattern is consistent with impaired LV relaxation. Doppler assessment is consistent with normal left sided filling pressure. The apical septal, apical anterior, apical lateral, and apical inferior wall segments are akinetic (score 3). Overall wallmotion score index is 1.50 ?? Left Atrium: The left atrium is mildly dilated.35 ml/m2 ?? Right Ventricle: Right ventricular chamber size, wall thickness, and systolic function are within normal limits. ?? Right Atrium: The right atrium appears normal. ?? Aortic Valve: The aortic valve is tricuspid. The aortic valve leaflets are mildly thickened. There is no evidence of aortic valve stenosis. There is a trace of aortic regurgitation present. ?? Mitral Valve: The mitral valve leaflets are mildly thickened. There is trace mitral regurgitation present. ?? Tricuspid Valve: The tricuspid valve appears normal in structure and function. There is trace tricuspid regurgitation present. ?? Pulmonic Valve: The pulmonic valve is not well visualized. ?? Pericardium: The pericardium appears normal and there is no evidence of a pericardial effusion. ?? Aorta: The aortic root is normal in size. The ascending aorta was not well visualized. ?? Pulmonary Artery: The main pulmonary artery appears normal. ?? Venous: The inferior vena cava is poorly visualized. ?? Misc: See remainder of report for additional findings. Two-dimensional echo, spectral Doppler and color Doppler performed. ? Chambers 2D Value Units (Range) IVSd (2D) 1.2 cm LVPWd (2D) 0.7 cm IVS:LVPW ratio (2D) 1.7 ratio RWT (2D) 0.4 ratio RWT PW (2D) 0.3 ratio LVIDd (2D) 4.6 cm LVIDs (2D) 2.9 cm LVIDd (2D) index 2.8 cm/m2 LVIDs (2D) index 1.8 cm/m2 LV FS (2D) 37 % EF Teichholz (2D) 67 % Ao root diameter (2D2.6 cm (2.1 - 3.6) ?? Volumes/Mass Value Units (Range) LA ESV BP (A/L) inde34.5 ml/m2 LV ESV SP 4CH (MOD) 43.4 ml LV ESV SP 2CH (MOD) 30.6 ml LV EDV BP 102 ml LV ESV BP 37.5 ml LV EDV BP index 63 ml/m2 LV ESV BP index 23.2 ml/m2 BP EF (MOD) 63 % LV mass (2D) 149.8 g LV mass (2D) index 92.5 g/m2 ?? Diastolic/Systolic Function Value Units (Range) MV E-wave Vmax 0.6 m/sec MV deceleration eneh245.9 msec MV A-wave Vmax 1.1 m/sec MV E:A ratio 0.5 ratio LV septal e' Vmax 0 m/sec LV lateral e' Vmax 0.1 m/sec LV average e' Vmax 0 m/sec LV E:e' septal ratio14.1 ratio LV E:e' lateral rati11.3 ratio LV average E:e' rati14.1 ratio ?? Tricuspid Valve Value Units (Range) TR Vmax 2.3 m/sec TR peak gradient 21.9 mmHg ? Wall Motion: ?? Segment Name Rest ?? Base-Anteroseptal Normal Base-Anterior Normal Base-Anterolateral Normal Base-Posterolateral Normal Base-Inferior Normal Base-Inferoseptal Normal Mid-Anteroseptal Normal Mid-Anterior Normal Mid-Anterolateral Normal Mid-Posterolateral Normal Mid-Inferior Normal Mid-Inferoseptal Normal [place]-Septal Akinetic [place]-Anterior Akinetic [place]-Lateral Akinetic [place]-Inferior Akinetic [place]-Tip Akinetic ?? This report has been electronically signed by: ?? Ramakrishna Toure MD 02/23/2018 11:37:21 Images reviewed and interpretation verified [facility] Cardiac Ultrasound Laboratory Cardiac Catheterization 02/25: Hemodynamics: Left Heart Pressures Resting: Syst Diast EDP a v m Ao 112 68 85 LV 125 8 ? Coronary Angiography: Dominance: Right ? Left Main The left main was normal, free of disease. ? Left Anterior Descending The left anterior descending (LAD) was normal, free of disease. ? Left Circumflex The left circumflex (LCX) was normal, free of disease. ? Right Coronary Artery The right coronary artery (RCA) was normal, free of disease. ? Vascular Access: Vascular Access Management: Mechanical Compression of the right radial artery access site was performed. ? Conclusions: * Normal coronary arteries ? Complications/Events: The patient had no complications during these procedures. ? The attending physician was present for the entire procedure. ? Dr. Jasvir Magana M.D. was present during the moderate sedation intraservice time as documented by the sedation nurse. Case time = 00:20. ? Dr. Jasvir Magana M.D. performed the coronary angiography and left heart catheterization. ? Jasvir Magana M.D. ? Electronically Signed by: Jasvir Magana M.D. Pending Studies and Lab Data: None Discharge Conditions/Prognosis: Stable condition, fair prognosis Discharge to: [facility] in [place], [place] Updated Allergies/ADRs: Allergies Allergen Reactions ??? Penicillins CIS - Hives ??? Cephalosporins CIS - Hives ??? Lisinopril CIS - Hives ??? Sulfa (Sulfonamide Antibiotics) CIS - Hives Immunizations Given this Hospitalization: Immunization History Administered Date(s) Administered ??? Influenza Vaccine, Whole 05/31/2009 ??? Pneumococcal Polyvalent 23 08/31/2007 Discharge Medications: Your Medications New Medications Dose Details aspirin 81 mg Tbec Take 1 tablet by mouth daily. Start taking on: 02/27/2018 81 mg Quantity: 30 tablet Refills: 1 atorvastatin 40 mg Tab Commonly known as: LIPITOR Take 1 tablet by mouth every evening. 40 mg Quantity: 90 tablet Refills: 3 ipratropium-albuterol 0.5 mg-3 mg(2.5 mg base)/3 mL Nebu Commonly known as: DUONEB Take 0.5 mg by nebulization every 4 hours as needed. 3 mL Quantity: 1 Box Refills: 4 nicotine 21 mg/24 hr Pt24 Commonly known as: NICODERM CQ Place 1 patch onto the skin daily. 1 patch Quantity: 28 patch Refills: 0 nicotine polacrilex 2 mg Gum Commonly known as: NICORETTE Take 1 each by mouth every 2 hours as needed for Smoking cessation. 2 mg Refills: 0 Continued medications with new dosing Dose Details citalopram 40 mg Tab Commonly known as: CeleXA Take 1 tablet by mouth daily. What changed: how much to take 40 mg Quantity: 30 tablet Refills: 1 loperamide 2 mg Tab Commonly known as: IMODIUM A-D Take 1 tablet by mouth 4 times daily as needed for Diarrhea. Maximum 16 mg in 24 hours What changed: See the new instructions. 2 mg Refills: 0 Continued medications, unchanged Dose Details amLODIPine 10 mg Tab Commonly known as: NORVASC Take 10 mg by mouth daily. 10 mg Refills: 0 COLACE 100 mg Cap 100 MG = 1 Capsule(s), PO, Twice daily,PRN Generic drug: docusate sodium Refills: 0 * gabapentin 300 mg Cap Commonly known as: NEURONTIN Take 600 mg by mouth every evening. 600 mg Refills: 0 * gabapentin 300 mg Cap Commonly known as: NEURONTIN Take 900 mg by mouth nightly. 900 mg Refills: 0 ibuprofen 600 mg Tab Commonly known as: ADVIL;MOTRIN 600 MG = 1 Tablet(s), PO, Q6H Refills: 0 metoprolol tartrate 25 mg Tab Commonly known as: LOPRESSOR Take 25 mg by mouth 2 times daily. 25 mg Refills: 0 omeprazole 20 mg Tbec Take 20 mg by mouth. 20 mg Refills: 0 * Notice: This list has 2 medication(s) that are the same as other medications prescribed for you. Read the directions carefully, and ask your doctor or other care provider to review them with you. STOPPED Medications meclizine 25 mg Tab Commonly known as: ANTIVERT oxyCODONE-acetaminophen 10-325 mg Tab Commonly known as: PERCOCET WELLBUTRIN SR 150 mg Tb12 Generic drug: buPROPion Smoking Status at Discharge: History Smoking Status ??? Former Smoker ??? Packs/day: 1.00 ??? Years: 63.00 ??? Types: Cigarettes ??? Quit date: 02/23/2018 Smokeless Tobacco ??? Never Used Comment: Received tobacco cessation consult. NRT ordered. Given [facility] Tobacco Treatment packet Instructions Given to Patient at Discharge: Patient Instructions Patient Instructions on Discharge to [facility] Facility Why you were hospitalized - You had a COPD exacerbation that was treated with steroids and antibiotics. You also had a heart condition called a stress cardiomyopathy that was likely due to your COPD exacerbation placing increased demands on your heart's function. There was no significant blockagein your heart's arteries. Call your doctor or seek medical attention if you develop the following - chest pain, shortness of breath, passing out, feeling dizzy upon standing, passing out, diarrhea, constipation lasting longerthan 2 days, fevers (temperature over 100.3), chills, abdominal pain, vomiting, difficulty or discomfort when urinating, bloody or black bowel movements, or any other acute or concerning symptom. Activity level - As recommended by physical therapy Diet - Diet rich in fruits and vegetables Driving - No restrictions Shower/Bath - No restrictions Home Oxygen Therapy - N/A Physical Therapy Recommendations Summary: Pt seen for Physical therapy evaluation; gait, transfer, bed mobility and endurance training; pt edand dc planning. Pt requiring skilled PT, due to functional limitations given some of the evaluatedimpairments: aerobic capacity/endurance;arousal, attention, and cognition;gait, locomotion, and osmin nce;muscle performance;motor function;ventilation and respiration/gas exchange (chronic pain). Pt with recent NSTEMI and COPD exacerbation. Pt is most limited by ongoing GASPAR and coughing. Pt gets quite anxious but is motivated and willing to work with PT. Pt feels she could notfunction alone at home this time and has no family that could stay with her to assist.. Currently, pt is refusing a cardiac cath but is agreeable to medical management. Feel anxiety and lung dysfunction play a big part in her impaired functional abilities. Pt also has had 2 weeks of progressive weakness given her failing health, elderly age, and chronic medical conditions.. Please see associated flow sheet data below for objective information regarding today's session. Pt is agreeable to a rehab stay to maximize her functional independence prior to home alone. She sleeps in a recliner at baseline and has been falling more at home. Would benefit from an OT evaluation of ADLs and energy conservation techniques. ?? Staff Mobility Recommendations: Cga with FWW, ~50'. ?? Anticipated Discharge Disposition: (would benefit from rehab to maximize functional independence) Follow-up needs Appointment with PCP Dr. Dwyer on 03/04/18 at 09:00 [address] Forming Press Operator [address]. Russ at [facility] on 04/26/18 at 1:00 PM. General Instructions Congratulations for quitting smoking! Your quit date for quitting smoking is 02/23/2018 ?? You have chosen to quit smoking using Nicotine patches daily and gum as needed. ?? Nicotine patch instructions: Use the 21 mg nicotine patches daily for 4 weeks then, Decrease to the 14 mg patches daily for 2 weeks then, Decrease to the 7 mg patches daily for 2 weeks. ?? If at any time when you decrease the dose you feel an increase in cravings to smoke you may go backto the higher dose for another 2 weeks and then try to decrease the dose again. Do not hesitate to call if you have questions about this or are struggling with cravings or withdrawal symptoms. Place the patch on your skin in an area that has a minimal amount of hair, typically between the neck and waist or upper arms. Avoid placing it over scars or tattoos. Change the place where you put it on your skin daily. Remove the patch each morning and replace with a new patch. Fold the patch in half, with the sticky sides in and dispose of it safely, keeping it out of reach of children or pets. Some patients experience nightmares or bad dreams on the patch. If this happens you should remove the patch at bedtime and just replace it each morning. ?? The nicotine patch releases a constant amount of nicotine in the body. The nicotine dissolves rightthrough the skin and enters the body. Less nicotine is obtained through the patch than in cigarettes. The patch does NOT contain all the tars and poisonous gases that are found in cigarettes. ?? Side effects from wearing the patch can include: headaches, dizziness, upset stomach, weakness, blurred vision, vivid dreams, mild itching and burning on the skin, and diarrhea. ?? Wearing the nicotine patch decreases the chances of suffering from several of the major smoking withdrawal symptoms such as tenseness, irritability, drowsiness and lack of concentration. ?? The nicotine patch can be combined with other Nicotine Replacement Therapy products such as Nicotine gum or lozenges. Ask your healthcare provider about combination therapy to increase your chances of successfully quitting tobacco for good! ?? The [place] Food and Drug Administration has recently released a statement that there are no significantrisks associated with the use of Nicotine Replacement Therapy products for longer than the labeled number of weeks of use. ?? If you are still having strong cravings to smoke or are struggling to quit completely while using the Nicotine patch talk with your healthcare provider for additional help. ?? References: Treating Tobacco Use and Dependence, Clinical Practice Guideline 2008 Update, U.S. Department of Health and Human Services, December 2007 Nicotine gum instructions: Use the 2 mg piece as soon as you wake up, 30 minutes before meals and at bedtime at a minimum. ?? Nicotine gum must be used properly in order to be effective. Nicotine from the gum is absorbed through the mucous membranes in your mouth at a certain acidity or pH level. Therefore do not eat or drink anything but water for 15 minutes prior to or during use. ?? Directions: Nicotine gum should be chewed slowly until you can taste the nicotine or feel a slight tingling in your mouth. Then stop chewing and place (park) the chewing gum between your cheek and gum. When the tingling is almost gone (about 1 minute), start chewing again; repeat this procedure forabout 30 minutes. ?? Nicotine gum come in two strengths, 2 mg and 4 mg. You should use the 2 mg pieces if you smoke yourfirst cigarette more than 30 minutes after waking. You should use the 4 mg pieces if you smoke yourfirst cigarette less than 30 minutes after waking. You can use up to 20 pieces of gum a day. ?? Nicotine gum can be combined with Nicotine patches for increased chances of successfully quitting tobacco for good! References: Treating Tobacco Use and Dependence, Clinical Practice Guideline 2008 Update, U.S. Department of Health and Human Services, December 2007 Future Appointments and Orders Future Orders Complete By Expires Referral to [facility] [ARZ544 Custom] As directed Process Instructions: If no progress note charted, please enter Clinical details in comments. Scheduling Instructions: Questions: My question or request is: Tobacco Cessation Patient consented to referral to Quitline?: Yes Discharge References/Attachments SMOKING: STOPPING (GUINEAN) SMOKING: ANTI-SMOKING MEDICATION: DECIDING ABOUT (GUINEAN) SMOKING CESSATION: HEALTH BENEFITS: GENERAL INFO (GUINEAN) documented in this encounter Discharge Instructions * Discharge Instructions* Lester Ernst RN - 02/23/2018 1:48 PM EDT Congratulations for quitting smoking! Your quit date for quitting smoking is 02/23/2018 ?? You have chosen to quit smoking using Nicotine patches daily and gum as needed. ?? Nicotine patch instructions: Use the 21 mg nicotine patches daily for 4 weeks then, Decrease to the 14 mg patches daily for 2 weeks then, Decrease to the 7 mg patches daily for 2 weeks. ?? If at any time when you decrease the dose you feel an increase in cravings to smoke you may go backto the higher dose for another 2 weeks and then try to decrease the dose again. Do not hesitate to call if you have questions about this or are struggling with cravings or withdrawal symptoms. Place the patch on your skin in an area that has a minimal amount of hair, typically between the neck and waist or upper arms. Avoid placing it over scars or tattoos. Change the place where you put it on your skin daily. Remove the patch each morning and replace with a new patch. Fold the patch in half, with the sticky sides in and dispose of it safely, keeping it out of reach of children or pets. Some patients experience nightmares or bad dreams on the patch. If this happens you should remove the patch at bedtime and just replace it each morning. ?? The nicotine patch releases a constant amount of nicotine in the body. The nicotine dissolves rightthrough the skin and enters the body. Less nicotine is obtained through the patch than in cigarettes. The patch does NOT contain all the tars and poisonous gases that are found in cigarettes. ?? Side effects from wearing the patch can include: headaches, dizziness, upset stomach, weakness, blurred vision, vivid dreams, mild itching and burning on the skin, and diarrhea. ?? Wearing the nicotine patch decreases the chances of suffering from several of the major smoking withdrawal symptoms such as tenseness, irritability, drowsiness and lack of concentration. ?? The nicotine patch can be combined with other Nicotine Replacement Therapy products such as Nicotine gum or lozenges. Ask your healthcare provider about combination therapy to increase your chances of successfully quitting tobacco for good! ?? The US Food and Drug Administration has recently released a statement that there are no significantrisks associated with the use of Nicotine Replacement Therapy products for longer than the labeled number of weeks of use. ?? If you are still having strong cravings to smoke or are struggling to quit completely while using the Nicotine patch talk with your healthcare provider for additional help. ?? References: Treating Tobacco Use and Dependence, Clinical Practice Guideline 2008 Update, U.S. Department of Health and Human Services, December 2007 Nicotine gum instructions: Use the 2 mg piece as soon as you wake up, 30 minutes before meals and at bedtime at a minimum. ?? Nicotine gum must be used properly in order to be effective. Nicotine from the gum is absorbed through the mucous membranes in your mouth at a certain acidity or pH level. Therefore do not eat or drink anything but water for 15 minutes prior to or during use. ?? Directions: Nicotine gum should be chewed slowly until you can taste the nicotine or feel a slight tingling in your mouth. Then stop chewing and place (park) the chewing gum between your cheek and gum. When the tingling is almost gone (about 1 minute), start chewing again; repeat this procedure forabout 30 minutes. ?? Nicotine gum come in two strengths, 2 mg and 4 mg. You should use the 2 mg pieces if you smoke yourfirst cigarette more than 30 minutes after waking. You should use the 4 mg pieces if you smoke yourfirst cigarette less than 30 minutes after waking. You can use up to 20 pieces of gum a day. ?? Nicotine gum can be combined with Nicotine patches for increased chances of successfully quitting tobacco for good! References: Treating Tobacco Use and Dependence, Clinical Practice Guideline 2008 Update, U.S. Department of Health and Human Services, December 2007 * Patient Instructions* Arsh Jose Jr. - 02/24/2018 3:45 PM EDT Patient Instructions on Discharge to [facility] Why you were hospitalized - You had a COPD exacerbation that was treated with steroids and antibiotics. You also had a heart condition called a stress cardiomyopathy that was likely due to your COPD exacerbation placing increased demands on your heart's function. There was no significant blockagein your heart's arteries. Call your doctor or seek medical attention if you develop the following - chest pain, shortness of breath, passing out, feeling dizzy upon standing, passing out, diarrhea, constipation lasting longerthan 2 days, fevers (temperature over 100.3), chills, abdominal pain, vomiting, difficulty or discomfort when urinating, bloody or black bowel movements, or any other acute or concerning symptom. Activity level - As recommended by physical therapy Diet - Diet rich in fruits and vegetables Driving - No restrictions Shower/Bath - No restrictions Home Oxygen Therapy - N/A Physical Therapy Recommendations Summary: Pt seen for Physical therapy evaluation; gait, transfer, bed mobility and endurance training; pt edand dc planning. Pt requiring skilled PT, due to functional limitations given some of the evaluatedimpairments: aerobic capacity/endurance;arousal, attention, and cognition;gait, locomotion, and osmin nce;muscle performance;motor function;ventilation and respiration/gas exchange (chronic pain). Pt with recent NSTEMI and COPD exacerbation. Pt is most limited by ongoing GASPAR and coughing. Pt gets quite anxious but is motivated and willing to work with PT. Pt feels she could notfunction alone at home this time and has no family that could stay with her to assist.. Currently, pt is refusing a cardiac cath but is agreeable to medical management. Feel anxiety and lung dysfunction play a big part in her impaired functional abilities. Pt also has had 2 weeks of progressive weakness given her failing health, elderly age, and chronic medical conditions.. Please see associated flow sheet data below for objective information regarding today's session. Pt is agreeable to a rehab stay to maximize her functional independence prior to home alone. She sleeps in a recliner at baseline and has been falling more at home. Would benefit from an OT evaluation of ADLs and energy conservation techniques. ?? Staff Mobility Recommendations: Cga with FWW, ~50'. ?? Anticipated Discharge Disposition: (would benefit from rehab to maximize functional independence) Follow-up needs Appointment with PCP Dr. Dwyer on 03/04/18 at 09:00 [address] Forming Press Operator [address]. Russ at [facility] on 04/26/18 at 1:00 PM. * Attachments The following attachments cannot be sent through Care Everywhere. * SMOKING: STOPPING (GUINEAN) * SMOKING: ANTI-SMOKING MEDICATION: DECIDING ABOUT (GUINEAN) * SMOKING CESSATION: HEALTH BENEFITS: GENERAL INFO (GUINEAN) documented in this encounter Medications at Time of Discharge Medication Sig Dispensed Refills Start Date End Date atorvastatin (LIPITOR) 40 mg Tablet Take 1 tablet by mouth every evening. 90 tablet 3 02/26/2018 aspirin 81 mg Tablet, Delayed Release (E.C.) Take 1 tablet by mouth daily. 30 tablet 1 02/27/2018 ipratropium-albuterol (DUONEB) 0.5 mg-3 mg(2.5 mg base)/3 mL Solution for Nebulization Take 0.5 mg by nebulization every 4 hours as needed. 1 Box 4 02/26/2018 citalopram (CELEXA) 40 mg Tablet Take 1 tablet by mouth daily. 30 tablet 1 02/26/2018 nicotine polacrilex (NICORETTE) 2 mg Gum Take 1 each by mouth every 2 hours as needed for Smoking cessation. 02/26/2018 nicotine (NICODERM CQ) 21 mg/24 [address] 1 patch onto the skin daily. 28 patch 02/26/2018 loperamide (IMODIUM A-D) 2 mg Tablet Take 1 tablet by mouth 4 times daily as needed for Diarrhea. Maximum 16 mg in 24 hours 0 02/26/2018 amLODIPine (NORVASC) 10 mg Tablet Take 10 mg by mouth daily. gabapentin (NEURONTIN) 300 mg Capsule Take 600 mg by mouth every evening. gabapentin (NEURONTIN) 300 mg Capsule Take 900 mg by mouth nightly. omeprazole 20 mg Tablet, Delayed Release (E.C.) Take 20 mg by mouth. metoprolol tartrate (LOPRESSOR) 25 mg Tablet Take 25 mg by mouth 2 times daily. ibuprofen (ADVIL;MOTRIN) 600 mg tablet 600 MG = 1 Tablet(s), PO, Q6H 04/23/2010 docusate sodium (COLACE) 100 mg capsule 100 MG = 1 Capsule(s), PO, Twice daily,PRN 04/23/2010 documented as of this encounter Progress Notes * Susie Fisher RN - 02/26/2018 1:53 PM EDT Patient A&OX3. OOB X1 assist with walker. Patient continues to get SOB on exertion and then panicks. TLC and relaxation techniques provided to help patient calm her nerves. Nebulizer scheduled and give with good affect. Pt ambulating short distances and then stopping because she feels SOB. Oxygen sats on RA down to 90% and recover to 95% on RA with rest. Summary reviewed with patient. Packet sent with patient to rehab. Ride home via [facility] medicaid ride. IV plan to remove prior to discharge. * Aisha Cummins, MIKE - 02/26/2018 12:39 PM EDT Office of Care Management/Information Tech Patient Name: Danette George : 1940 Patient has been offered a snf bed at [facility] re[facility] for today. ANIMAL NUTRITION CONSULTANT arranging medicaid ride for around 3:30. No MD to MD report necessary Please call Nursing Report to , ask for painter hand. Info to accompany patient: Narcotic Prescriptions Copies of Medication Administration Records and IV sheets for past 10 days. Plan: Information Tech will be available to the patient and [place] Observer-RN and/or Social Workerfor further assistance. Patient will be discharged to: [facility] [address] [address] AISHA CUMMINS RN, Information Tech * Danette Juan RN - 02/26/2018 12:36 PM EDT OFFICE OF CARE MANAGEMENT MANAGER DIABETES PROGRESS NOTE RN-CM met with patient at bedside to confirm the d/c plan for today. Patient has accepted a rehab bed at [facility] for today. 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 Her daughters work at [employer] right across the street and come and visit her. ANIMAL NUTRITION CONSULTANT is organizing d/c ride with [facility] for 3/3:30 pm today, still waiting confirmation from [facility]. CONSTANTINE tried to call both daughters, with patient's permission, to update family on d/c plans for today. Nallely George, and Mignon Rooney, , left message and contact information on their voice mails. ADDENDUM: patient's daughter Nallely George called business case analyst at 2:10 pm for d/c plan update. She was happy with rehab placement and family estimates that their mother will arrive at rehab around 4:30 pm. Plan: CM will continue to follow for coordination of care and to facilitate discharge planning. CM Danette Juan RN, BS, pager [phone] * Nikita Flores MSW - 02/26/2018 12:32 PM EDT [facility] to Collect patient [facility] at 3pm and transport to [facility] and rehab * Margaret Vazquez - 02/26/2018 9:07 AM EDT Button Tufting Machine Operator Encounter Note Patient Name: Danette George : [id number] MR#: [id number] Admit Date: 02/22/2018 4:00 PM Hospital Day 4 days Narrative: I followed up after previous visits. Assessment: Danette seems to be feeling relieved after going through with her procedure yesterday. She said that she kody on knowing she had gotten through difficult treatment experiences in the past to help her face this. Intervention and Outcome: Provided encouraging presence, named patient's courage in going through with the procedure even though she was afraid. Follow-up: No follow up planned. Time in Direct Care: 10 minutes Margaret Vazquez 02/26/2018 * Arsh Jose Jr. - 02/26/2018 6:43 AM EDT PGY-1 Progress Note Date: 02/26/18 Patient Information Name: Danette George : 1940 PCP: Ana Dwyer MD PCP Admit Date: 02/22/2018 Attending: Justyn Blanchard MD ID: This patient is a 77 y.o. female with a PMH of COPD, vitamin B12 deficiency, PTSD, lung nodule,memory loss, OA, fibrocystic breast disease, MDD, colitis, GERD, and chronic pain who was transferred from [facility] with NSTEMI. Principal Problem: Type II NSTEMI (non-ST elevated myocardial infarction) Active Problems: COPD with exacerbation Hypertension Subjective/24h Events NAEO. Pt denies CP, dizziness, palpitations, nausea, diaphoresis. Continues with some dyspnea, thisis her baseline. Objective Tele: NAEO Scheduled Meds: ??? [START ON 02/27/2018] aspirin 81 mg Oral Daily ??? fentaNYL 1 patch Transdermal Q72H And ??? Patch Verification 1 patch Transdermal BID And ??? fentaNYL 1 patch Transdermal Q72H ??? heparin (Porcine) 5,000 Units Subcutaneous 2 times per day ??? traZODone 50 mg Oral Nightly ??? citalopram 40 mg Oral Daily ??? nicotine 1 patch Transdermal Daily And ??? Patch Verification 1 patch Transdermal BID And ??? nicotine 1 patch Transdermal Daily ??? gabapentin 900 mg Oral Nightly ??? sodium chloride 0.9 % 5 mL Intravenous BID ??? atorvastatin 40 mg Oral QPM ??? gabapentin 600 mg Oral Daily at Noon ??? metoprolol tartrate 12.5 mg Oral Q6H NONI ??? acetaminophen 650 mg Oral Q6H Continuous Infusions: PRN Meds:.loperamide, ipratropium-albuterol, nicotine polacrilex, sodium chloride 0.9 %, lidocaine,nitroGLYcerin, dextromethorphan-guaiFENesin Last value Range last 24 hrs Temperature Temp: 36.6 ??C (97.9 ??F) Temp: [36.3 ??C (97.3 ??F)-37 ??C (98.6 ??F)] Heart Rate Heart Rate: 58 Heart Rate: [58-73] Blood Pressure BP: (!) 155/93 BP: (140-186)/(76-97) Respiratory Rate Resp: 18 Resp: [16-27] SpO2 SpO2: 91 % SpO2: [91 %-97 %] Oxygen: 3L/min by NC Intake/Output Summary (Last 24 hours) at 02/26/18 1035 Last data filed at 02/26/18 0832 Gross per 24 hour Intake 840 ml Output 300 ml Net 540 ml Patient Vitals for the past 168 hrs: Weight 02/26/18 0652 60.1 kg (132 lb 7.9 oz) 02/25/18 0504 61 kg (134 lb 7.7 oz) 02/24/18 0553 61.8 kg (136 lb 3.9 oz) 02/23/18 0610 60.6 kg (133 lb 9.6 oz) 02/22/18 1615 61.5 kg (135 lb 9.3 oz) Recent Results (from the past 24 hour(s)) Basic Metabolic Panel (non-fasting) Collection Time: 02/26/18 5:55 AM Result Value Ref Range Glucose Lvl 89 65 - 199 mg/dL BUN 12 8 - 18 mg/dL Creatinine 0.48 (L) 0.70 - 1.20 mg/dL Sodium 140 135 - 145 mmol/L Potassium 3.8 3.5 - 5.0 mmol/L Chloride 103 98 - 107 mmol/L CO2 23 22 - 31 mmol/L Anion Gap 14 5 - 15 mmol/L Calcium 8.8 8.5 - 10.5 mg/dL eGFR 96 >=60 mL/min/1.73 m?? eGFR 111 >=60 mL/min/1.73 m?? Magnesium Collection Time: 02/26/18 5:55 AM Result Value Ref Range Magnesium 0.69 0.69 - 1.07 mmol/L Hemogram Collection Time: 02/26/18 5:55 AM Result Value Ref Range WBC 7.5 4.0 - 9.5 x10(3)/mcL RBC 4.60 4.00 - 5.21 x10(6)/mcL Hemoglobin 12.9 11.7 - 15.5 gm/dL Hematocrit 39.0 35.7 - 45.8 % MCV 84.8 82.6 - 94.4 fL MCH 28.0 27.1 - 32.0 pg MCHC 33.1 31.7 - 35.0 gm/dL Platelets 239 145 - 357 x10(3)/mcL RDWSD 43.5 37.0 - 46.0 fL RDWCV 14.0 11.5 - 14.1 % MPV 10.2 7.6 - 12.9 fL nRBC % Auto 0.0 % nRBC Abs Auto 0.000 0.000 - 0.000 x10(3)/mcL Differential, Automated Collection Time: 02/26/18 5:55 AM Result Value Ref Range Neutrophils % 53.8 % Neutr Abs (ANC) 4.03 1.70 - 6.10 x10(3)/mcL Lymphocytes % 38.3 % Lymphocytes Abs 2.9 0.9 - 3.2 x10(3)/mcL Monocytes % 6.7 % Monocyte Abs 0.5 0.3 - 0.9 x10(3)/mcL Eosinophils % 0.8 % Eosinophils Abs 0.1 0.0 - 0.4 x10(3)/mcL Basophils % 0.1 % Basophils Abs 0.0 0.0 - 0.1 x10(3)/mcL Immature Gran % 0.30 % Rosa Gran Abs 0.02 0.00 - 0.04 x10(3)/mcL EKG 12 Lead Collection Time: 02/26/18 7:35 AM Result Value Ref Range Ventricular rate 54 BPM Atrial Rate 54 BPM P-R Interval 156 ms QRS Duration 84 ms Q-T Interval 410 ms QTC Calculated (Bezet) 388 ms Calculated P Webb 76 degrees Calculated R Webb 4 degrees Calculated T Webb 0 degrees INTERPRETATION Sinus bradycardia Cannot rule out Inferior infarct (cited on or before 25-FEB-2018) Abnormal ECG When compared with ECG of 25-FEB-2018 07:20, No significant change was found Confirmed by Gustavo YAÑEZ Earnest ([id number]) on 02/26/2018 8:38:10 AM Imaging: CXR 02/23: no acute cardiopulmonary process TTE 02/23: LVEF 63%. Apical septal, apical anterior, apical lateral, and apical inferior wall segments are akinetic. Review of Systems Constitutional: Negative for diaphoresis. Respiratory: Positive for cough and shortness of breath. Negative for chest tightness and wheezing. Cardiovascular: Negative for chest pain, palpitations and leg swelling. Gastrointestinal: Negative for nausea. Neurological: Negative for dizziness and light-headedness. Physical Exam HENT: No JVD or JVP Cardiovascular: Normal rate, regular rhythm and normal heart sounds. Pulses: Radial pulses are 2+ on the right side, and 2+ on the left side. Dorsalis pedis pulses are 2+ on the right side, and 2+ on the left side. Posterior tibial pulses are 2+ on the right side, and 2+ on the left side. No peripheral edema Pulmonary/Chest: She has no wheezes. She has no rhonchi. She has no rales. Poor inspiratory effort Assessment and Plan This patient is a 77 y.o. female with a PMH of COPD, vitamin B12 deficiency, PTSD, lung nodule, memory loss, OA, fibrocystic breast disease, MDD, colitis, GERD, and chronic pain who was transferred from OSH with NSTEMI. At OSH, pt was treated for COPD exacerbation and was transferred to [facility] with elevated cardiac biomarkers. Regarding her COPD exacerbation, the 5-day course of prednisone and levofloxacin therapy will end today. Her symptoms have improved and she no longer requires supplementary oxygen. Duonebs PRN will still be ordered. TTE on 02/23 showing WMA in the apex (LVEF 63%) raised concern for NSTEMI in light of elevated cardiac enzymes. Cardiac catheterization was recommended, though upon discussion of the benefits and risks discussed, pt refused treatment on 02/23 and 02/24. She consented to cardiac catheterization on 02/25, showed normal coronary arteries. DAPT was discontinued. The increase in her cardiac enzymes was likely secondary to demand ischemia in the context of a COPD exacerbation. Since her COPD exacerbation has resolved and there is no indication for further cardiac workup or treatment, pt can be discharged today to short-term rehab per PT recommendations. See DC summary for further detail. Arsh Jose Jr, MD, PhD Internal Medicine Resident, PGY-1 02/26/18 10:35 AM Associated attestation - Justyn Blanchard MD - 02/26/2018 1:04 PM EDT Cardiology Staff Danette George is a 77 y.o. female whom I saw today with Dr. Jose. I have personally interviewed and examined the patient and reviewed appropriate data, including labs, ECGs, and other diagnostic studies. I agree with the principal findings documented above, with additions and exceptions as below. The assessment and plan were formulated in discussion with me. In brief this is a very pleasant 77-year-old woman with history of COPD, depression, fibromyalgia, and heavy tobacco use transferred for non-STEMI. She had been admitted to outside hospital for COPD exacerbation and had a mildly elevated troponin. Transthoracic echocardiogram showed preserved LVEF with mild apical wall motion abnormalities concerning for LAD disease. However on angiography yesterday the patient was found to have no obstructive coronary disease. The plan is for discharge today. Please see discharge summary for discharge medications and full details of admission. Justyn Blanchard MD, HERVE Cardiovascular Medicine * Danette Juan RN - 02/25/2018 4:21 PM EDT OFFICE OF CARE MANAGEMENT MANAGER DIABETES PROGRESS NOTE RN-JEANNINE met with patient at bedside to discuss the need for rehab at discharge. Patient is s/p cardiac catherization, no interventions. She will be medically ready for discharge on Thursday. Based on discussions with the multi-disciplinary healthcare team, the patient would benefit from SNF level of care at discharge. ?? I have met with the patient to discuss discharge planning needs. I have provided the [facility], Office of Care Management letter from the Line Maintainer pertaining to rehab referrals. I have also provided a letter describing our affiliations within the [facility] and educatedthem about their right to choose where referrals are placed. ?? I reviewed the different levels of rehab including SNF, swing, acute and LTAC with the patient/technology sales representative. ?? The patient/technology sales representative has been provided a list of facilities within their preferred geographic area. ?? I have requested that the patient/technology sales representative provide at least three choices for referral. ?? The patient have requested referrals to: 1. [facility] (Swing) (1st choice) [address] [place], [place] [address] 2. [facility] [address] [place] [address] ?? [phone] ?? Expected date of discharge: patient will be medically ready for d/c on Thursday. Note routed to Information Tech who will communicate referrals to facilities and provide any required information. Plan: CM will continue to follow for coordination of care and to facilitate discharge planning. CM Danette Juan RN, BS, pager [phone] * Lyn Steward PTA - 02/25/2018 1:26 PM EDT Physical Therapy Note Patient in quality control lab tech. Will follow up post cath. Lyn Steward PTA Pager# [phone] * George Margaret M - 02/25/2018 10:12 AM EDT Button Tufting Machine Operator Encounter Note Patient Name: Danette George : [id number] MR#: [id number] Admit Date: 02/22/2018 4:00 PM Hospital Day 3 days Narrative: I followed up from my visit yesterday, Thu02/24/18. Assessment: Danette is still experiencing some trepidation about her procedure especially since she is waiting and not sure when it will happen. I asked about how she coped with past procedures and she wasn't surebut that the Lord got me through. Prayer seems to be a support for her but she has not been involved in episcopalian since a painful experience. Intervention and Outcome: Provided presence and listening to help patient cope with the waiting. She said it was helpful. I also offered to find her a book to read from the library but she declined. Follow-up: No follow up planned at this time but I may try to check in with her again depending on how long her stay is. Time in Direct Care: 25 minutes Margaret Vazquez 02/25/2018 * Earnest Burks - 02/25/2018 7:51 AM EDT Pre Cardiac Catheterization Note 77 y.o. female presents with copd exacerbation and type II nstemi. Further evaluation demonstrates q waves in inferior leads and apical wmas, c/f MVD Denies planned upcoming surgeries. Denies recent or ongoing bleeding events. BP (!) 141/91 (BP Location (NBP): Right arm, Patient Position: Lying) Pulse 59 Temp 36.9 ??C (98.4 ??F) (Oral) Resp 17 Ht 157.5 cm (5' 2) Wt 61 kg (134 lb 7.7 oz) SpO2 91% BMI 24.6 kg/m2 Gen: Pleasant female in no apparent distress, able to lay flat Cor: rrr, s1/s2 of nl character and amplitude, no m/r/g. jvp not elevated Pulm: CTAB Ext: Bilateral Justin's Test positive (both the radial and ulnar arteries alone provide ample circulation to the hand arcade). Femoral arteries are with adequate upstroke and without overlying evidence of infection. DP/PT ++ Neuro: sans focal deficit ASA: III Mallampati: II Last 3 wbc, hgb, hct plt Recent Labs 02/25/18 0457 02/24/18 0527 02/23/18 0600 WBC 7.2 8.6 6.9 HGB 12.7 12.4 12.7 HCT 38.8 36.9 38.7 PLATELET 236 231 237 Last 3 Lytes Recent Labs 02/25/18 0457 02/24/18 0527 02/23/18 0600 NA 138 136 136 K 3.5 3.4* 4.2 CL 101 98 97* CO2 26 27 25 BUN 8 8 12 CREATININE 0.44* 0.48* 0.48* Previous Catheterization: none The indications, expected benefits, and potential risks of heart catheterization were reviewed in detail with the patient. The potential for , heart attack, stroke, kidney failure, hemorrhage, allergic reaction, vascular complications and infection were reviewed in detail. The possibility of stenting and other percutaneous intervention, with associated risk, was reviewed. The possible need for emergent coronary artery bypass surgery was reviewed. Alternatives were discussed and the patient's questions were answered in full. Following this discussion, the patient consented to the procedure and signed a form attesting to this, which is in the chart. Plan/ Coronary Angio via rra No C/I to long-term DAPT Moderate Sedation OK; she is rather anxious, so will likely need early and often conscious sedation MD Kimmie * Arsh Jose Jr. - 02/25/2018 6:59 AM EDT PGY-1 Progress Note Date: 02/25/18 Patient Information Name: Danette George : 1940 PCP: Ana Dwyer MD PCP Admit Date: 02/22/2018 Attending: Joel Leggett MD ID: This patient is a 77 y.o. female with a PMH of COPD, vitamin B12 deficiency, PTSD, lung nodule,memory loss, OA, fibrocystic breast disease, MDD, colitis, GERD, and chronic pain who was transferred from OSH with NSTEMI. Principal Problem: Type II NSTEMI (non-ST elevated myocardial infarction) Active Problems: COPD with exacerbation Hypertension Subjective/24h Events NAEO. Pt denies CP, dizziness, palpitations, nausea, diaphoresis. Having dry cough and dyspnea. Objective Tele: NAEO Scheduled Meds: ??? fentaNYL 1 patch Transdermal Q72H And ??? Patch Verification 1 patch Transdermal BID And ??? fentaNYL 1 patch Transdermal Q72H ??? heparin (Porcine) 5,000 Units Subcutaneous 2 times per day ??? traZODone 50 mg Oral Nightly ??? citalopram 40 mg Oral Daily ??? levoFLOXacin 500 mg Oral Daily ??? nicotine 1 patch Transdermal Daily And ??? Patch Verification 1 patch Transdermal BID And ??? nicotine 1 patch Transdermal Daily ??? gabapentin 900 mg Oral Nightly ??? sodium chloride 0.9 % 5 mL Intravenous BID ??? atorvastatin 40 mg Oral QPM ??? predniSONE 40 mg Oral Daily ??? gabapentin 600 mg Oral Daily at Noon ??? metoprolol tartrate 12.5 mg Oral Q6H NONI ??? acetaminophen 650 mg Oral Q6H Continuous Infusions: ??? sodium chloride 0.9% PRN Meds:.loperamide, ipratropium-albuterol, nicotine polacrilex, sodium chloride 0.9 %, lidocaine,nitroGLYcerin, dextromethorphan-guaiFENesin Last value Range last 24 hrs Temperature Temp: 36.3 ??C (97.3 ??F) Temp: [36.3 ??C (97.3 ??F)-37.2 ??C (99 ??F)] Heart Rate Heart Rate: 62 Heart Rate: [57-90] Blood Pressure BP: (!) 153/95 BP: (102-186)/(58-97) Respiratory Rate Resp: 24 Resp: [17-27] SpO2 SpO2: 95 % SpO2: [91 %-97 %] Oxygen: 3L/min by NC Intake/Output Summary (Last 24 hours) at 02/25/18 1519 Last data filed at 02/25/18 1200 Gross per 24 hour Intake 200 ml Output 1025 ml Net -825 ml Patient Vitals for the past 168 hrs: Weight 02/25/18 0504 61 kg (134 lb 7.7 oz) 02/24/18 0553 61.8 kg (136 lb 3.9 oz) 02/23/18 0610 60.6 kg (133 lb 9.6 oz) 02/22/18 1615 61.5 kg (135 lb 9.3 oz) Recent Results (from the past 24 hour(s)) Basic Metabolic Panel (non-fasting) Collection Time: 02/25/18 4:57 AM Result Value Ref Range Glucose Lvl 91 65 - 199 mg/dL BUN 8 8 - 18 mg/dL Creatinine 0.44 (L) 0.70 - 1.20 mg/dL Sodium 138 135 - 145 mmol/L Potassium 3.5 3.5 - 5.0 mmol/L Chloride 101 98 - 107 mmol/L CO2 26 22 - 31 mmol/L Anion Gap 11 5 - 15 mmol/L Calcium 9.0 8.5 - 10.5 mg/dL eGFR 99 >=60 mL/min/1.73 m?? eGFR 114 >=60 mL/min/1.73 m?? Magnesium Collection Time: 02/25/18 4:57 AM Result Value Ref Range Magnesium 0.75 0.69 - 1.07 mmol/L Hemogram Collection Time: 02/25/18 4:57 AM Result Value Ref Range WBC 7.2 4.0 - 9.5 x10(3)/mcL RBC 4.54 4.00 - 5.21 x10(6)/mcL Hemoglobin 12.7 11.7 - 15.5 gm/dL Hematocrit 38.8 35.7 - 45.8 % MCV 85.5 82.6 - 94.4 fL MCH 28.0 27.1 - 32.0 pg MCHC 32.7 31.7 - 35.0 gm/dL Platelets 236 145 - 357 x10(3)/mcL RDWSD 42.4 37.0 - 46.0 fL RDWCV 13.6 11.5 - 14.1 % MPV 10.2 7.6 - 12.9 fL nRBC % Auto 0.0 % nRBC Abs Auto 0.000 0.000 - 0.000 x10(3)/mcL Differential, Automated Collection Time: 02/25/18 4:57 AM Result Value Ref Range Neutrophils % 49.5 % Neutr Abs (ANC) 3.58 1.70 - 6.10 x10(3)/mcL Lymphocytes % 42.0 % Lymphocytes Abs 3.0 0.9 - 3.2 x10(3)/mcL Monocytes % 7.3 % Monocyte Abs 0.5 0.3 - 0.9 x10(3)/mcL Eosinophils % 0.6 % Eosinophils Abs 0.0 0.0 - 0.4 x10(3)/mcL Basophils % 0.3 % Basophils Abs 0.0 0.0 - 0.1 x10(3)/mcL Immature Gran % 0.30 % Rosa Gran Abs 0.02 0.00 - 0.04 x10(3)/mcL Scan, Peripheral Blood Collection Time: 02/25/18 4:57 AM Result Value Ref Range Plat Estimate Normal RBC Morphology Normal EKG 12 Lead Collection Time: 02/25/18 7:20 AM Result Value Ref Range Ventricular rate 61 BPM Atrial Rate 61 BPM P-R Interval 154 ms QRS Duration 86 ms Q-T Interval 408 ms QTC Calculated (Bezet) 410 ms Calculated P Webb 54 degrees Calculated R Webb 1 degrees Calculated T Webb -11 degrees INTERPRETATION Normal sinus rhythm Inferior infarct (cited on or before 25-FEB-2018) T wave abnormality, consider anterior ischemia Abnormal ECG When compared with ECG of 24-FEB-2018 07:18, QT has shortened Imaging: CXR 02/23: no acute cardiopulmonary process TTE 02/23: LVEF 63%. Apical septal, apical anterior, apical lateral, and apical inferior wall segments are akinetic. Review of Systems Constitutional: Negative for diaphoresis. Respiratory: Positive for cough and shortness of breath. Negative for chest tightness and wheezing. Cardiovascular: Negative for chest pain, palpitations and leg swelling. Gastrointestinal: Negative for nausea. Neurological: Negative for dizziness and light-headedness. Physical Exam HENT: No JVD or JVP Cardiovascular: Normal rate, regular rhythm and normal heart sounds. Pulses: Radial pulses are 2+ on the right side, and 2+ on the left side. Dorsalis pedis pulses are 2+ on the right side, and 2+ on the left side. Posterior tibial pulses are 2+ on the right side, and 2+ on the left side. No peripheral edema Pulmonary/Chest: She has no wheezes. She has no rhonchi. She has no rales. Poor inspiratory effort Assessment and Plan This patient is a 77 y.o. female with a PMH of COPD, vitamin B12 deficiency, PTSD, lung nodule, memory loss, OA, fibrocystic breast disease, MDD, colitis, GERD, and chronic pain who was transferred from OSH with NSTEMI. At OSH, pt was treated for COPD exacerbation and was transferred to [facility] with elevated cardiac biomarkers. Regarding her COPD exacerbation, the 5-day course of prednisone and levofloxacin therapy will end today. Her symptoms have improved and she no longer requires supplementary oxygen. Duonebs PRN will still be ordered. TTE on 02/23 showing WMA in the apex raised concern for NSTEMI in light of elevated cardiac enzymes.Cardiac catheterization was recommended, though upon discussion of the benefits and risks discussed, pt refused treatment on 02/23 and 02/24. She has consented to the procedure today. #NSTEMI: - DAPT: ASA 81 mg daily, clopidogrel 75 mg daily to begin 02/23 - Tele - K>4, Mg>1 - Atorvastatin 40 mg daily - DC heparin gtt- 48 hours total - Metoprolol tartrate 12.5 mg Q6H - PRN NTG - Daily and PRN EKG - I/O - Electrolyte optimization: trend BMP, Mg- repleted 40 mg KCl PO for K 3.5 - CBC - PT/OT- recommending short-term rehab - Cardiac catheterization today #COPD Exacerbation - Prednisone and levofloxacin to DC today - Duonebs Q4H PRN - PRN anti-tussives #HTN - Metoprolol tartrate 12.5 mg Q6H #Fibromyalgia - PRN Tylenol - Citalopram 60 mg daily - Gabapentin 600 mg noon, 900 mg nightly - Transdermal fentanyl #Tobacco Use - NRT Diet: NPO for catheterization Prophylaxis: SQH Disposition: ICCU Code Status: Full code Arshalfredito Jose Jr, MD, PhD Internal Medicine Resident, PGY-1 02/25/18 3:19 PM Associated attestation - Joel Leggett MD - 02/25/2018 7:28 PM EDT Cardiology Attending Note I interviewed and examined the patient during comprehensive bedside rounds. I concur with the summary of interval events, active hospital-focused problem list and plan of care as described in the note below. I personally reviewed the medications, laboratory results, treatment decisions and updated the patient. This is a 77-year-old woman with a medical history notable for COPD, depression, fibromyalgia, GERDadmitted to an outside hospital with a COPD exacerbation. In the setting of treating her for this, she was noted to have positive cardiac enzymes with inferolateral T-wave inversions. She was transferred to our facility with a diagnosis of an NSTEMI for medical management and a cardiac catheterization. TTE demonstrated preserved EF but with an akinetic apex concerning for the possibility of LAD disease. Since admission, she has adamantly refused cardiac catheterization despite several long discussions. Thus, we initially pursued medical management with aspirin, Plavix, atorvastatin, metoprolol, and 48 hours of heparin infusion. Yesterday evening, however, she changed her mind about the ideaof catheterization. Will send her for coronary angiography later today. Joel Leggett MD, FACP, FACC Section of Cardiovascular Medicine [facility] [employer] [facility] This patient meets or has met medical criteria to require an inpatient level of care, i.e. a minimum of two midnights in the hospital with multiple complex problems. * Danette Juan RN - 02/24/2018 4:31 PM EDT OFFICE OF CARE MANAGEMENT MANAGER DIABETES PROGRESS NOTE RN-CM met with patient at bedside to discuss the possible need for rehab at discharge. PT will evaluate. RN-CM called patient's daughter Nallely George, to give her update on possible d/c options, rehab versus home w/VNA? TBD. Patient has been declining cardiac cath, but may consent to cath tomorrow. Plan: CM will continue to follow for coordination of care and to facilitate discharge planning. CM Danette Juan RN, BS, pager [phone] * Maryjo Fam RN - 02/24/2018 11:47 AM EDT 95% oxygen sat at rest. Ambulated approx 40ft, reporting shortness of breath, oxygen sats maintained between 88-95%, quickly increased to 95% with rest post walk. Team and CM aware, PT to assess later today. * Margaret Vazquez - 02/24/2018 10:17 AM EDT Button Tufting Machine Operator Encounter Note Patient Name: Dnaette George : [id number] MR#: [id number] Admit Date: 02/22/2018 4:00 PM Hospital Day 2 days Narrative: I initiated a visit. Assessment: Danette is feeling anxious about the possibility of a procedure. She said that if they had done it right away when she arrived it would have been ok, but that the waiting and the anticipation are creating worry. She feels pressure to do this procedure but so far has not been ready. This is different from surgeries she has had in the past which were no picnic but which she did not hesitate about like this. Danette is not sleeping well and stated, I wish they would just give me a tranquilizer. Wespoke about her dogs who have been important companions for her. She does not have help at home buthas some support from her children and her neighbors. Intervention and Outcome: Provided supportive presence and listening. Mentioned the possibility of asking a nurse if anythingcan be done to help her sleep better. Follow-up: No follow up planned as patient anticipates being discharged tomorrow morning, 02/23. However I did tell her I will be available in the morning if desired and that a nurse can page me. My pager is [phone]. Time in Direct Care: 20 minutes Margaret Vazquez 02/24/2018 * Arsh Jose Jr. - 02/24/2018 7:58 AM EDT PGY-1 Progress Note Date: 02/24/18 Patient Information Name: Danette George : 1940 PCP: Ana Dwyer MD PCP Admit Date: 02/22/2018 Attending: Joel Leggett MD ID: This patient is a 77 y.o. female with a PMH of COPD, vitamin B12 deficiency, PTSD, lung nodule,memory loss, OA, fibrocystic breast disease, MDD, colitis, GERD, and chronic pain who was transferred from [facility] with NSTEMI. Active Problems: NSTEMI (non-ST elevated myocardial infarction) Subjective/24h Events NAEO. Pt denies CP, dizziness, palpitations, nausea, diaphoresis. Having cough and dyspnea. Objective Tele: NAEO Scheduled Meds: ??? ipratropium-albuterol 3 mL Nebulization Q4H While awake ??? citalopram 40 mg Oral Daily ??? levoFLOXacin 500 mg Oral Daily ??? nicotine 1 patch Transdermal Daily And ??? Patch Verification 1 patch Transdermal BID And ??? nicotine 1 patch Transdermal Daily ??? gabapentin 900 mg Oral Nightly ??? sodium chloride 0.9 % 5 mL Intravenous BID ??? atorvastatin 40 mg Oral QPM ??? aspirin 81 mg Oral Daily ??? clopidogrel 75 mg Oral Daily ??? predniSONE 40 mg Oral Daily ??? gabapentin 600 mg Oral Daily at Noon ??? metoprolol tartrate 12.5 mg Oral Q6H NONI ??? acetaminophen 650 mg Oral Q6H Continuous Infusions: ??? sodium chloride 0.9% Stopped (02/23/18 1100) ??? heparin (porcine) 850 Units/hr (02/23/18 2143) PRN Meds:.nicotine polacrilex, sodium chloride 0.9 %, lidocaine, nitroGLYcerin, heparin (porcine) AND heparin (porcine), dextromethorphan-guaiFENesin Last value Range last 24 hrs Temperature Temp: 36.6 ??C (97.9 ??F) Temp: [36.4 ??C (97.5 ??F)-37.2 ??C (99 ??F)] Heart Rate Heart Rate: 60 Heart Rate: [60-71] Blood Pressure BP: 140/84 BP: (115-140)/(50-84) Respiratory Rate Resp: 18 Resp: [18-24] SpO2 SpO2: 96 % SpO2: [94 %-98 %] Oxygen: 3L/min by VT Intake/Output Summary (Last 24 hours) at 02/24/18 1017 Last data filed at 02/24/18 0759 Gross per 24 hour Intake 1500.49 ml Output 875 ml Net 625.49 ml Patient Vitals for the past 168 hrs: Weight 02/24/18 0553 61.8 kg (136 lb 3.9 oz) 02/23/18 0610 60.6 kg (133 lb 9.6 oz) 02/22/18 1615 61.5 kg (135 lb 9.3 oz) Recent Results (from the past 24 hour(s)) Echocardiogram Transthoracic(Leb) Collection Time: 02/23/18 11:23 AM Result Value Ref Range EF 63 Heparin (unfractionated) Level Collection Time: 02/23/18 12:00 PM Result Value Ref Range Heparin UFH Level 0.34 IU/mL Basic Metabolic Panel (non-fasting) Collection Time: 02/24/18 5:27 AM Result Value Ref Range Glucose Lvl 95 65 - 199 mg/dL BUN 8 8 - 18 mg/dL Creatinine 0.48 (L) 0.70 - 1.20 mg/dL Sodium 136 135 - 145 mmol/L Potassium 3.4 (L) 3.5 - 5.0 mmol/L Chloride 98 98 - 107 mmol/L CO2 27 22 - 31 mmol/L Anion Gap 11 5 - 15 mmol/L Calcium 8.6 8.5 - 10.5 mg/dL eGFR >60 >=60 eGFR 111 >=60 mL/min/1.73 m?? Magnesium Collection Time: 02/24/18 5:27 AM Result Value Ref Range Magnesium 0.75 0.69 - 1.07 mmol/L Heparin (unfractionated) Level Collection Time: 02/24/18 5:27 AM Result Value Ref Range Heparin UFH Level 0.33 IU/mL Hemogram Collection Time: 02/24/18 5:27 AM Result Value Ref Range WBC 8.6 4.0 - 9.5 x10(3)/mcL RBC 4.25 4.00 - 5.21 x10(6)/mcL Hemoglobin 12.4 11.7 - 15.5 gm/dL Hematocrit 36.9 35.7 - 45.8 % MCV 86.8 82.6 - 94.4 fL MCH 29.2 27.1 - 32.0 pg MCHC 33.6 31.7 - 35.0 gm/dL Platelets 231 145 - 357 x10(3)/mcL RDWSD 44.6 37.0 - 46.0 fL RDWCV 13.9 11.5 - 14.1 % MPV 10.5 7.6 - 12.9 fL nRBC % Auto 0.0 % nRBC Abs Auto 0.000 0.000 - 0.000 x10(3)/mcL Differential, Automated Collection Time: 02/24/18 5:27 AM Result Value Ref Range Neutrophils % 58.3 % Neutr Abs (ANC) 5.02 1.70 - 6.10 x10(3)/mcL Lymphocytes % 33.2 % Lymphocytes Abs 2.9 0.9 - 3.2 x10(3)/mcL Monocytes % 8.0 % Monocyte Abs 0.7 0.3 - 0.9 x10(3)/mcL Eosinophils % 0.1 % Eosinophils Abs 0.0 0.0 - 0.4 x10(3)/mcL Basophils % 0.2 % Basophils Abs 0.0 0.0 - 0.1 x10(3)/mcL Immature Gran % 0.20 % Rosa Gran Abs 0.02 0.00 - 0.04 x10(3)/mcL Scan, Peripheral Blood Collection Time: 02/24/18 5:27 AM Result Value Ref Range Plat Estimate Normal RBC Morphology Normal EKG 12 Lead Collection Time: 02/24/18 7:18 AM Result Value Ref Range Ventricular rate 60 BPM Atrial Rate 60 BPM P-R Interval 148 ms QRS Duration 86 ms Q-T Interval 470 ms QTC Calculated (Bezet) 470 ms Calculated P Webb 43 degrees Calculated R Webb 3 degrees Calculated T Webb -33 degrees INTERPRETATION Normal sinus rhythm Inferior infarct (cited on or before 23-FEB-2018) T wave abnormality, consider anterior ischemia Abnormal ECG When compared with ECG of 23-FEB-2018 07:22, T wave inversion more evident in Anterior leads Imaging: CXR 02/23: no acute cardiopulmonary process TTE 02/23: LVEF 63%. Apical septal, apical anterior, apical lateral, and apical inferior wall segments are akinetic. Review of Systems Constitutional: Negative for diaphoresis. Respiratory: Positive for cough, shortness of breath and wheezing. Negative for chest tightness. Cardiovascular: Negative for chest pain, palpitations and leg swelling. Gastrointestinal: Negative for nausea. Neurological: Negative for dizziness and light-headedness. Physical Exam Cardiovascular: Normal rate, regular rhythm and normal heart sounds. Pulses: Radial pulses are 1+ on the right side, and 1+ on the left side. Dorsalis pedis pulses are 1+ on the right side, and 1+ on the left side. No peripheral edema Pulmonary/Chest: She has wheezes. She has no rales. Diffuse occasional expiratory wheezes. Marked improvement in lung exam compared to yesterday, 02/23. Assessment and Plan This patient is a 77 y.o. female with a PMH of COPD, vitamin B12 deficiency, PTSD, lung nodule, memory loss, OA, fibrocystic breast disease, MDD, colitis, GERD, and chronic pain who was transferred from OSH with NSTEMI. At OSH, pt was treated for COPD exacerbation and was transferred to [facility] with elevated cardiac biomarkers, presumed NSTEMI. Her COPD exacerbation has improved and pt no longer requires oxygen. TTE showing wall motion abnormalities, and with troponin elevation NSTEMI diagnosis was confirmed. Benefits and risks of cardiac catheterization have been discussed with patient and she has adamantly refused the procedure on multiple occasions, and we are currently managing her NSTEMI m edically. Will require one more night in the hospital, plan for DC tomorrow if she continues to refuse cardiac catheterization. #NSTEMI: - DAPT: ASA 81 mg daily, clopidogrel 75 mg daily to begin 02/23 - Tele - K>4, Mg>1 - Atorvastatin 40 mg daily - DC heparin gtt- 48 hours total - Metoprolol tartrate 12.5 mg Q6H - PRN NTG - Daily and PRN EKG - I/O - Electrolyte optimization: trend BMP, Mg- repleted 40 mg KCl PO for K 3.5 - CBC - PT/OT - NPO after MN for possible cath #COPD Exacerbation - Prednisone 40 mg PO daily - Duonebs Q4H PRN - Levofloxacin - PRN anti-tussives - Ambulatory O2 saturation #HTN - Metoprolol tartrate 12.5 mg Q6H #Fibromyalgia - PRN Tylenol - Citalopram 60 mg daily - Gabapentin 600 mg noon, 900 mg nightly - Transdermal fentanyl #Tobacco Use - NRT Diet: [facility] Cardiac diet, NPO after MN Prophylaxis: SQH Disposition: 4 east Code Status: Full code Arsh Jose Jr, MD, PhD Internal Medicine Resident, PGY-1 02/24/18 10:17 AM Associated attestation - Joel Leggett MD - 02/24/2018 5:36 PM EDT Cardiology Attending Note I interviewed and examined the patient during comprehensive bedside rounds. I concur with the summary of interval events, active hospital-focused problem list and plan of care as described in the note below. I personally reviewed the medications, laboratory results, treatment decisions and updated the patient. This is a 77-year-old woman with a medical history notable for COPD, depression, fibromyalgia, GERDadmitted to an outside hospital with a COPD exacerbation. In the setting of treating her for this, she was noted to have positive cardiac enzymes with inferolateral T-wave inversions. She was transferred to our facility with a diagnosis of an NSTEMI for medical management and a cardiac catheterization. Yesterday, she adamantly refused cardiac catheterization despite a long discussion laying out the rationale for pursuing this procedure and an in-depth discussion about logistics and risks/benefits. Thus, we opted for medical management of an NSTEMI with aspirin, Plavix, atorvastatin, metoprolol, and 48 hours of heparin infusion. An echocardiogram performed yesterday, shows mildly reduced LV function with an akinetic apex concerning for obstructive disease in the mid to distal LAD. This morning, she is pain-free and comfortable. We discussed the results of her echocardiogram and revisited the idea of cardiac catheterization. Again, she remains uninterested. She is unable to articulate her fear of this procedure but is scared to . For now, we will continue her medical therapies as mentioned previously. At this point, a nuclear stress test would be reasonable to better understand the distribution and burden of ischemia versus scar, if she would ever entertain the idea of revascularization in the future. If this is definitely not going to be an option, then further testing is probably not indicated as it is unlikely to change medical management. She is going to think about this. Joel Leggett MD, FACP, FACC Section of Cardiovascular Medicine [facility] [employer] road freight [employer] [facility] This patient meets or has met medical criteria to require an inpatient level of care, i.e. a minimum of two midnights in the hospital with multiple complex problems. * Arsh Jose Jr. - 02/23/2018 1:23 PM EDT PGY-1 Progress Note Date: 02/23/18 Patient Information Name: Danette George : 1940 PCP: Ana Dwyer MD PCP Admit Date: 02/22/2018 Attending: Joel Leggett MD ID: This patient is a 77 y.o. female with a PMH of COPD, vitamin B12 deficiency, PTSD, lung nodule,memory loss, OA, fibrocystic breast disease, MDD, colitis, GERD, and chronic pain who was transferred from OSH with NSTEMI. Active Problems: NSTEMI (non-ST elevated myocardial infarction) Subjective/24h Events NAEO. Pt denies CP, SOB, dizziness, palpitations, nausea, diaphoresis. Objective Tele: NAEO Scheduled Meds: ??? levoFLOXacin in D5W 750 mg Intravenous Q24H ??? ipratropium-albuterol 3 mL Nebulization Q4H While awake ??? citalopram 40 mg Oral Daily ??? gabapentin 900 mg Oral Nightly ??? sodium chloride 0.9 % 5 mL Intravenous BID ??? atorvastatin 40 mg Oral QPM ??? aspirin 81 mg Oral Daily ??? clopidogrel 75 mg Oral Daily ??? predniSONE 40 mg Oral Daily ??? gabapentin 600 mg Oral Daily at Noon ??? metoprolol tartrate 12.5 mg Oral Q6H NONI ??? acetaminophen 650 mg Oral Q6H Continuous Infusions: ??? sodium chloride 0.9% Stopped (02/23/18 1100) ??? heparin (porcine) 850 Units/hr (02/23/18 1252) PRN Meds:.sodium chloride 0.9 %, lidocaine, nitroGLYcerin, heparin (porcine) AND heparin (porcine), dextromethorphan-guaiFENesin Most Recent Vitals: 02/23/18 1209 BP: 115/76 Pulse: 71 Resp: 20 Temp: 36.6 ??C (97.9 ??F) SpO2: 96% Vitals Range (24h): Temp: [36.6 ??C (97.9 ??F)-37.3 ??C (99.1 ??F)] Heart Rate: [57-78] Resp: [20] BP: (115-146)/(71-85) SpO2: [94 %-96 %] Heart Rate from SPO2: -- Intake/Output Summary (Last 24 hours) at 02/23/18 1418 Last data filed at 02/23/18 1356 Gross per 24 hour Intake 583.33 ml Output 350 ml Net 233.33 ml Patient Vitals for the past 168 hrs: Weight 02/23/18 0610 60.6 kg (133 lb 9.6 oz) 02/22/18 1615 61.5 kg (135 lb 9.3 oz) Recent Results (from the past 24 hour(s)) EKG 12 Lead Collection Time: 02/22/18 5:06 PM Result Value Ref Range Ventricular rate 68 BPM Atrial Rate 68 BPM P-R Interval 156 ms QRS Duration 80 ms Q-T Interval 446 ms QTC Calculated (Bezet) 474 ms Calculated P Webb 66 degrees Calculated R Webb 12 degrees Calculated T Webb 24 degrees INTERPRETATION Normal sinus rhythm Normal ECG When compared with ECG of 12-MAR-2010 15:53, Nonspecific T wave abnormality now evident in Lateral leads Basic Metabolic Panel (non-fasting) Collection Time: 02/22/18 5:45 PM Result Value Ref Range Glucose Lvl 139 65 - 199 mg/dL BUN 9 8 - 18 mg/dL Creatinine 0.44 (L) 0.70 - 1.20 mg/dL Sodium 134 (L) 135 - 145 mmol/L Potassium 4.4 3.5 - 5.0 mmol/L Chloride 95 (L) 98 - 107 mmol/L CO2 25 22 - 31 mmol/L Anion Gap 14 5 - 15 mmol/L Calcium 9.0 8.5 - 10.5 mg/dL eGFR >60 >=60 eGFR 114 >=60 mL/min/1.73 m?? Magnesium Collection Time: 02/22/18 5:45 PM Result Value Ref Range Magnesium 0.86 0.69 - 1.07 mmol/L Prothrombin Time Collection Time: 02/22/18 5:45 PM Result Value Ref Range PT 11.6 9.4 - 12.5 sec INR 1.0 APTT Collection Time: 02/22/18 5:45 PM Result Value Ref Range PTT 30 25 - 37 sec Cardiac Enzymes (LEB/CGP) Collection Time: 02/22/18 5:45 PM Result Value Ref Range Troponin-T 0.20 (H) 0.00 - 0.00 ng/mL CK, Total 123 0 - 160 unit/L Heparin (unfractionated) Level Collection Time: 02/22/18 5:45 PM Result Value Ref Range Heparin UFH Level 0.11 IU/mL Hemogram Collection Time: 02/22/18 5:45 PM Result Value Ref Range WBC 3.4 (L) 4.0 - 9.5 x10(3)/mcL RBC 4.60 4.00 - 5.21 x10(6)/mcL Hemoglobin 13.2 11.7 - 15.5 gm/dL Hematocrit 40.1 35.7 - 45.8 % MCV 87.2 82.6 - 94.4 fL MCH 28.7 27.1 - 32.0 pg MCHC 32.9 31.7 - 35.0 gm/dL Platelets 226 145 - 357 x10(3)/mcL RDWSD 43.6 37.0 - 46.0 fL RDWCV 13.8 11.5 - 14.1 % MPV 10.3 7.6 - 12.9 fL nRBC % Auto 0.0 % nRBC Abs Auto 0.000 0.000 - 0.000 x10(3)/mcL Differential, Automated Collection Time: 02/22/18 5:45 PM Result Value Ref Range Neutrophils % 69.7 % Neutr Abs (ANC) 2.37 1.70 - 6.10 x10(3)/mcL Lymphocytes % 27.1 % Lymphocytes Abs 0.9 0.9 - 3.2 x10(3)/mcL Monocytes % 2.9 % Monocyte Abs 0.1 (L) 0.3 - 0.9 x10(3)/mcL Eosinophils % 0.0 % Eosinophils Abs 0.0 0.0 - 0.4 x10(3)/mcL Basophils % 0.0 % Basophils Abs 0.0 0.0 - 0.1 x10(3)/mcL Immature Gran % 0.30 % Rosa Gran Abs 0.01 0.00 - 0.04 x10(3)/mcL Urinalysis with reflex Culture Collection Time: 02/22/18 5:54 PM Result Value Ref Range Glucose UA Negative Negative mg/dL Protein UA Negative Negative mg/dL Bilirubin UA Negative Negative mg/dL Urobilinogen UA Normal Normal mg/dL pH UA 7.0 5.0 - 8.0 Blood UA Negative Negative mg/dL Ketones UA 20 (A) Negative mg/dL Nitrite UA Negative Negative Leukocytes UA Negative Negative mcL Appearance UA Clear Clear Spec [place] UA 1.010 1.002 - 1.030 Color UA Straw Yellow Culture Reflexed No Urine Hold Collection Time: 02/22/18 5:54 PM Result Value Ref Range Urine Hold Sample in lab. Cardiac Enzymes (LEB/CGP) Collection Time: 02/22/18 11:58 PM Result Value Ref Range Troponin-T 0.34 (H) 0.00 - 0.00 ng/mL CK, Total 164 (H) 0 - 160 unit/L Heparin (unfractionated) Level Collection Time: 02/22/18 11:58 PM Result Value Ref Range Heparin UFH Level 0.27 IU/mL Basic Metabolic Panel (non-fasting) Collection Time: 02/23/18 6:00 AM Result Value Ref Range Glucose Lvl 105 65 - 199 mg/dL BUN 12 8 - 18 mg/dL Creatinine 0.48 (L) 0.70 - 1.20 mg/dL Sodium 136 135 - 145 mmol/L Potassium 4.2 3.5 - 5.0 mmol/L Chloride 97 (L) 98 - 107 mmol/L CO2 25 22 - 31 mmol/L Anion Gap 14 5 - 15 mmol/L Calcium 8.8 8.5 - 10.5 mg/dL eGFR >60 >=60 eGFR 111 >=60 mL/min/1.73 m?? Magnesium Collection Time: 02/23/18 6:00 AM Result Value Ref Range Magnesium 0.84 0.69 - 1.07 mmol/L Hemogram Collection Time: 02/23/18 6:00 AM Result Value Ref Range WBC 6.9 4.0 - 9.5 x10(3)/mcL RBC 4.46 4.00 - 5.21 x10(6)/mcL Hemoglobin 12.7 11.7 - 15.5 gm/dL Hematocrit 38.7 35.7 - 45.8 % MCV 86.8 82.6 - 94.4 fL MCH 28.5 27.1 - 32.0 pg MCHC 32.8 31.7 - 35.0 gm/dL Platelets 237 145 - 357 x10(3)/mcL RDWSD 44.0 37.0 - 46.0 fL RDWCV 13.7 11.5 - 14.1 % MPV 10.1 7.6 - 12.9 fL nRBC % Auto 0.0 % nRBC Abs Auto 0.000 0.000 - 0.000 x10(3)/mcL Differential, Automated Collection Time: 02/23/18 6:00 AM Result Value Ref Range Neutrophils % 62.8 % Neutr Abs (ANC) 4.32 1.70 - 6.10 x10(3)/mcL Lymphocytes % 27.5 % Lymphocytes Abs 1.9 0.9 - 3.2 x10(3)/mcL Monocytes % 9.3 % Monocyte Abs 0.6 0.3 - 0.9 x10(3)/mcL Eosinophils % 0.0 % Eosinophils Abs 0.0 0.0 - 0.4 x10(3)/mcL Basophils % 0.1 % Basophils Abs 0.0 0.0 - 0.1 x10(3)/mcL Immature Gran % 0.30 % Rosa Gran Abs 0.02 0.00 - 0.04 x10(3)/mcL Cardiac Enzymes (LEB/CGP) Collection Time: 02/23/18 6:00 AM Result Value Ref Range Troponin-T 0.29 (H) 0.00 - 0.00 ng/mL CK, Total 143 0 - 160 unit/L Heparin (unfractionated) Level Collection Time: 02/23/18 6:00 AM Result Value Ref Range Heparin UFH Level 0.40 IU/mL Scan, Peripheral Blood Collection Time: 02/23/18 6:00 AM Result Value Ref Range Plat Estimate Normal RBC Morphology Normal EKG 12 Lead Collection Time: 02/23/18 7:22 AM Result Value Ref Range Ventricular rate 64 BPM Atrial Rate 64 BPM P-R Interval 148 ms QRS Duration 82 ms Q-T Interval 432 ms QTC Calculated (Bezet) 445 ms Calculated P Webb 77 degrees Calculated R Webb 0 degrees Calculated T Webb -23 degrees INTERPRETATION Normal sinus rhythm Inferior infarct , age undetermined T wave abnormality, consider lateral ischemia Abnormal ECG When compared with ECG of 22-FEB-2018 17:06, (unconfirmed) T wave inversion more evident in Inferior leads T wave inversion now evident in Anterolateral leads Echocardiogram Transthoracic(Leb) Collection Time: 02/23/18 11:23 AM Result Value Ref Range EF 63 Heparin (unfractionated) Level Collection Time: 02/23/18 12:00 PM Result Value Ref Range Heparin UFH Level 0.34 IU/mL Imaging: CXR 02/23: no acute cardiopulmonary process TTE 02/23: LVEF 63%. Apical septal, apical anterior, apical lateral, and apical inferior wall segments are akinetic. Review of Systems Constitutional: Negative for diaphoresis. Respiratory: Positive for cough and wheezing. Negative for chest tightness and shortness of breath. Cardiovascular: Negative for chest pain, palpitations and leg swelling. Gastrointestinal: Negative for nausea. Neurological: Negative for dizziness and light-headedness. Physical Exam Cardiovascular: Normal rate, regular rhythm and normal heart sounds. Pulses: Radial pulses are 1+ on the right side, and 1+ on the left side. Dorsalis pedis pulses are 1+ on the right side, and 1+ on the left side. No peripheral edema Pulmonary/Chest: She has wheezes. She has rales. Diffuse expiratory wheezes and coarse crackles Assessment and Plan This patient is a 77 y.o. female with a PMH of COPD, vitamin B12 deficiency, PTSD, lung nodule, memory loss, OA, fibrocystic breast disease, MDD, colitis, GERD, and chronic pain who was transferred from OSH with NSTEMI. At OSH, pt was treated for COPD exacerbation and was transferred to [facility] with elevated cardiac biomarkers, presumed NSTEMI. TTE showing wall motion abnormalities confirmed NSTEMI.Benefits and risks of cardiac catheterization were discussed with patient and she adamantly refusedthe procedure, we are currently managing her NSTEMI medically. #NSTEMI: - DAPT: ASA 81 mg daily, clopidogrel 75 mg daily to begin 02/23 - Tele - K>4, Mg>1 - Atorvastatin 40 mg daily - Heparin gtt - Metoprolol tartrate 12.5 mg Q6H - PRN NTG #COPD Exacerbation - Prednisone 40 mg PO daily - Duonebs Q4H - Levofloxacin - PRN anti-tussives #HTN - Metoprolol - Consider PRASHANT inhibitor or ARB as outpatient #Fibromyalgia - PRN Tylenol - Citalopram 60 mg daily Diet: [facility] Cardiac diet Prophylaxis: heparin gtt Disposition: 4 east Code Status: Full code Arsh Jose Jr, MD, PhD Internal Medicine Resident, PGY-1 02/23/18 2:18 PM Associated attestation - Joel Leggett MD - 02/23/2018 3:17 PM EDT Cardiology Attending Note I interviewed and examined the patient during comprehensive bedside rounds. I concur with the summary of interval events, active hospital-focused problem list and plan of care as described in the note below. I personally reviewed the medications, laboratory results, treatment decisions and updated the patient. Please see my addendum to the H&P for my detailed assessment and plan for today. Joel Leggett MD, FACP, FACC Section of Cardiovascular Medicine [facility] [employer] [employer] [facility] This patient meets or has met medical criteria to require an inpatient level of care, i.e. a minimum of two midnights in the hospital with multiple complex problems. * Nallely Briggs, PT - 02/23/2018 11:22 AM EDT PT NOTE PT consult received. PT admitted with NSTEMI. Spoke with nursing. Pt is getting prepped for Cardiaccath.. Will follow up in 24-48 hours. Cardiac rehab consult may be beneficial. * Elizabeth Juan RN - 02/22/2018 6:46 PM EDT Pt arrived from OSH on 2LNC- denies pain. Fentanyl patch in place from OSH- MD Jarquin notified. SR on tele no events. Pt also placed on cont pulse ox- which pt did rip off a couple times. Pt arrived on heparin but IV access was not adequate. IV team paged. IV team put In new IV and kody labs. Pt gotvery anxious and started yelling when IV was being put in, MD Machado notified and came to bedside. No new orders. IV heparin was restarted when adequate access was obtained. UA sent to lab. Pt restingin bed this evening. Bed alarm has been set for safety. documented in this encounter H&P Notes * Dewayne Jarquin MD - 02/22/2018 4:08 PM EDT Cardiology Admission History and Physical Patient Name: Danette George Service: S2 Team Responsible Attending: Joel Leggett MD PCP: Ana Dwyer MD PCP phone #: [phone] ID/Chief Complaint: Ms. Danette George is a 77-year old female with a PMH of COPD, Vitamin B12 Deficiency, PTSD, Lung Nodule, Memory Loss, Depression, OA, Fibrocystic Breast Disease, MDD, OA, History of Colitis with prior LGIB, GERD, History of Colon Polyps and Chronic Pain (on Narcotic Therapy) who presented to [facility] with dyspnea and cough, found to have inferolateral WMA with cardiac biomarker elevation concerning for NSTEMI (MIRIAN Score: 5; CITLALI Score: 114; Killip:1). History of Present Illness: Ms. Danette George is a 77-year old female with a PMH of COPD, Vitamin B12 Deficiency, PTSD, Lung Nodule, Memory Loss, Depression, OA, Fibrocystic Breast Disease, MDD, OA, History of Colitis with prior LGIB, GERD, History of Colon Polyps and Chronic Pain (on Narcotic Therapy) who presented to [facility] with dyspnea and cough, found to have inferolateral WMA with cardiac biomarker elevation concerning for NSTEMI. The patient states that over the past two days, she has had progressively worsening cough associated with purulent sputum production, as well as dyspnea on exertion. She has had coinciding rhinorrhea, malaise, and fatigue; she denies any recent sick contacts or recent travel. The patient's cough has become increasingly more frequent, and is associated with yellow-green sputum. It is mildly relieved with PRN anti-tussives. She denies any associated weight gain or PND, but does endorse orthopnea.Rather, she has lost 30 lbs. Unintentionally over the past 12 months. She is an active smoker with a 60-PYH. She denies any lower extremity edema or prolonged periods of immobilization. With regards to the patient's dyspnea, she states that it is present at rest, and is worsened with any degree of exertion. She completely denies any recent or remote history of chest pain, palpitations, lightheadedness, dizziness, nausea or vomiting. She denies any family history of premature CAD. When inquired about history of prior ASCVD (noted on OSH records - alleged [facility] in 1996), the patient states that, I can't quite remember; I don't remember any of that. 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 While at the OSH ([facility]), the patient was treated for presumed COPD exacerbation with Levofloxacin, Solu-Medrol and bronchodilators. The patient was noted to have inferolateral WMA on TTE, with Troponin elevation (0.18 --> 1.13 --> 1.37) . No CK was available for review. EKG was not available for review, however, a description of the findings was enclosed, and detailed: normal sinus rhythm with normal axis, questionable ALFONSO. Downward reflecting inferolateral Q-waves; unchanged from prior tracing in 2013. T-wave flattening isolated in aVL. She has ASA/Plavix loaded and initiated on a Heparin drip. At this time, the patient denies any chest pain, diarrhea, melena, hematochezia, syncopal events, lightheadedness, dizziness, nausea or vomiting. She has been maintaining good PO intake. She does endorse significant shortness of breath, at rest, which has improved with supplemental oxygen. OSH labs prior to transfer: CBC: Described as entirely within normal limits at time of admission. CMP: Na: 141 K: 3.3 Cl: 103 Bicarb: 30 BUN: 9 Creatinine: 0.53 Glucose: 101 Cardiac enzymes: Tn- 0.18 --> 1.13 --> 1.37 CK-none available Other labs: LDL: 75 HDL: 51 CXR: Chest X-Ray - emphysematous change. No PNA, Vascular Congestion or Pulmonary Edema. EKG: described as normal sinus rhythm with normal axis, questionable ALFONSO. Downward reflecting inferolateral Q-waves; unchanged from prior tracing in 2013. T-wave flattening isolated in aVL. Review of Systems: GENERAL HEENT CV PULM All negative All negative All negative All negative X Weight loss Headache - Chest Pain - Non-productive cough Weight gain Vision change - Palpitations + Productive cough - Fevers Sinus congestion + Orthopnea + Wheezing - Chills Hoarseness + LE edema - Hemoptysis - Night sweats Epistaxis - PND - Pleuritic pain + Fatigue - Syncope + SOB Claudication + GASPAR MSK RENAL ENDO GI All negative All negative All negative All negative Arthralgias Frequency Heat intolerance Blood in stool Myalgias + Urgency Cold intolerance Dysphagia Weakness Hematuria Polydipsia Odynophagia Stiffness Flank pain Polyphagia Abdominal discomfort Dysuria Cushingoid Constipation Foamy urine Diarrhea Discharge Nausea/Vomiting LYMPH SKIN NEURO PSYCH All negative All negative All negative All negative Swollen nodes Rash Seizures Depressed affect Tender nodes Ulcers Tremors Occupational stress Diffuse nodes Bruising Spasticity Anxiety Local nodes Tanned skin Focal weakness Insomnia Night sweats Telangiectasias Diplopia Paresthesias Dizziness Problem List/Past Medical History Patient Active Problem List Diagnosis ??? NSTEMI (non-ST elevated myocardial infarction) ??? Seborrheic keratosis ??? Nevus Meds: No current facility-administered medications on file prior to encounter. Current Outpatient Prescriptions on File Prior to Encounter Medication Sig Dispense Refill ??? loperamide (IMODIUM A-D) 2 mg tablet ??? meclizine (ANTIVERT) 25 mg tablet ??? ibuprofen (ADVIL;MOTRIN) 600 mg tablet 600 MG = 1 Tablet(s), PO, Q6H ??? docusate sodium (COLACE) 100 mg capsule 100 MG = 1 Capsule(s), PO, Twice daily,PRN ??? [DISCONTINUED] buPROPion (WELLBUTRIN SR) 150 mg 12 hr tablet Allergies: Allergies Allergen Reactions ??? Penicillins CIS - Hives ??? Cephalosporins CIS - Hives ??? Lisinopril CIS - Hives ??? 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 Speaking full sentences. HEENT: EOMI, PERRL, anicteric sclera. Oropharynx clear w/o lesions. Moist mucous membranes Neck: Supple with normal ROM. No obvious LAD. JVP at 8 cm H2O. Cardiac: Normal S1 and S2, Regular rate and rhythm; No murmurs/gallops/rubs. Respiratory: Tachypneic. On 2L NC. Diffuse anterior, posterior wheezing. Decreased breath sounds bilaterally. No crackles or rhonchi. Abd: + BS; soft, non-tender, non-distended, no obvious masses. Ext: WWP without cyanosis or clubbing. DPP 2+ bilaterally. (+) Trace bilateral edema. Neuro: II-XII grossly intact. Alert and orientated, no-focal deficits, sensation intact to crude touch Skin: No rashs, no lesions, no petechiae Lines: PIV x1 Laboratory: CBC: No results for input(s): WBC, HGB, PLATELET in the last 7068 hours. Chemistry: No results for input(s): NA, K, CL, CO2, BUN, CREATININE, GLUCOSE in the last 7068 hours. No results for input(s): CALCIUM, MAGNESIUM, PHOS in the last 7068 hours. LFT's: No results for input(s): BILITOT, BILIDIR, ALBUMIN, ALKPHOS, ALT, AST in the last 7068 hours. Coags: No results for input(s): PT, INR, PTT, FIBRINOGEN, DDIMER in the last 168 hours. Invalid input(s): THROMBIN TIME Cardiac enzymes: No results for input(s): TROPONINT, CK in the last 7068 hours. Endocrine: No results for input(s): TSH, CORTISOL in the last 7068 hours. Invalid input(s): [id number] Heme: No results for input(s): LDH, HAPTOGLOBIN, URICACID in the last 168 hours. Microbiology: None Diagnostic Studies: EKG- Pending CXR- Pending ASSESSMENT: Ms. Danette George is a 77-year old female with a PMH of COPD (not on home oxygen), Tobacco Abuse *60 PYH; active smoker), Vitamin B12 Deficiency, PTSD, Lung Nodule, Memory Loss, Depression, OA, Fibrocystic Breast Disease, MDD, OA, History of Colitis with prior LGIB, GERD, History of Colon Polyps and Chronic Pain (on Narcotic Therapy) who presented to [facility] with dyspnea and productive cough a/w purulent sputum product, found to have inferolateral WMA with cardiac biomarker elevation and subsequent transfer to [facility] for presumed NSTEMI (MIRIAN Score: 5; CITLALI Score: 114; Killip: 1); the patient is currently chest pain free, HDS with the exception of hypoxemia likely 2/2 COPD exacerbation in the setting of recent viral URI. The patient's NSTEMI is likely Type II in the setting of demand relating to COPD exacerbation, however, Type I NSTEMI cannot be excluded given the patient's ASCVD history (anatomy unknown; no prior records available) with uptrending cardiac biomarkers & OSH TTE demonstrative of inferolateral WMA. At this time, the patient is slated to undergo cardiac catheterization to assess for acute ischemic process, with ongoing treatment of her COPD Exacerbation & close cardiac monitoring. PLAN: Admit to Cardiology, S2 Team Pager # [phone] # NSTEMI - NPO after MN for Cardiac Catheterization - DAPT: ASA 81 mg & Clopidogrel 75 mg/day (start: 02/23) - Trend Cardiac Enzymes: q6H - Maintain Telemetry; K>4, Mg>1 - Check lytes, BUN, Cr, CBC - TTE Pending - EKG pending - Risk factor evaluation with lipids, A1c, TSH - ASA 325 mg given - Plavix 300/600 given - Supplemental O2 - Heparin gtt - Atorvastatin 40 mg QD - Metoprolol Tartrate 12.5 mg q6H - Chest pain protocol, prn NTG and EKG - SL nitro PRN for chest pressure; start nitro drip if pressure not relieved after SL nitro x 3 # COPD Exacerbation likely 2/2 Viral URI # Viral URI - Prednisone: 40 mg QD starting 02/23 - q6H DuoNebs Scheduled - Azithromycin 500 mg QD x 1 today; 250 mg QD starting 02/23 - Titrate SpO2: 88-92% - PRN Anti-Tussives - CXR PA & Lateral # HTN - Holding home Amlodipine for now - Likely low-dose Lisinopril to follow - Metoprolol 12.5 mg q6H - [facility] Diet with 2 g Na restriction # Fibromyalgia - q6H PRN Tylenol - Avoid narcotics to lower delirium risk Other: - DVT prophylaxis: NONI. - GI prophylaxis: None indicated. - Home medications: See: Med Rec. - Diet: NPO (Give Meds) - Code Status: FULL CODE - Dispo: potentially Home with ALICE Jarquin MD PGY1 Internal Medicine Cardiology S2 - Pager: [phone] 02/22/2018 Associated attestation - Joel Leggett MD - 02/23/2018 3:17 PM EDT Cardiology Attending Note I interviewed and examined the patient during comprehensive bedside rounds. I concur with the summary of interval events, active hospital-focused problem list and plan of care as described in the note below. I personally reviewed the medications, laboratory results, treatment decisions and updated the patient. This is a 77-year-old woman with a medical history notable for COPD, depression, fibromyalgia, GERDadmitted to an outside hospital with a COPD exacerbation. In the setting of treating her for this, she was noted to have positive cardiac enzymes with inferolateral T-wave inversions. It is unclear why cardiac enzymes were checked as she adamantly denies any history of chest discomfort. Nevertheless, she was transferred to our facility with a diagnosis of an NSTEMI for a cardiac catheterization. When I met her this morning, she was chest pain-free. And, as previously noted, denies any history of chest pain or discomfort. We discussed with her the plan for coronary angiography, which she adamantly refuses. We discussed the logistics, rationale, and risks/benefits of an invasive approach to managing her NSTEMI, though she remains uninterested. She was able to demonstrate understanding of the situation and implications of her decision. We will continue to manage her medically with heparininfusion ??48 hours in addition to aspirin, Plavix, atorvastatin, and metoprolol. Will check an echocardiogram later today. Management of COPD exacerbation as detailed in the note below. Joel Leggett MD, FACP, FACC Section of Cardiovascular Medicine [facility] [employer] [facility] This patient meets or has met medical criteria to require an inpatient level of care, i.e. a minimum of two midnights in the hospital with multiple complex problems. documented in this encounter Miscellaneous Notes * Plan of Care - Marques Mendoza RN - 02/26/2018 4:29 AM EDT Problem: Patient Care Overview Goal: Plan of Care Review Outcome: Ongoing (Interventions Implemented as Appropriate) 02/26/18 8011 Plan of Care Review Progress progress toward functional goals as expected Coping/Psychosocial Plan Of Care Reviewed With patient OUTCOME EVALUATION NOTE: OUTCOME SUMMARY: Pt had a good night. No complaints of CP or SOB. No reports of pain or discomfort this shift. Pt was given robitussin at 2000 and 0400 for cough, Right radial site dry and intact, SR, resting HR 50-65 PLAN MOVING FORWARD: D/C to rehab INDIVIDUALIZED FALL PREVENTION INTERVENTIONS: Patient-specific fall risk factors per assessment: [current deficits]: Unfamiliar environment, telemetry, general weakness Assistance [level of assistance required for transfers and ambulation]: 1 assist w/ walker Supervision [direct monitoring required during toileting and ADLs]: Intermittent, able to call for assistance Surveillance [continuous indirect monitoring]: Purposeful hourly rounding, call her in reach, roomkept free of obstacles Patient-specific fall prevention interventions for sensory deficits provided, if applicable: N/A CPG GOAL OUTCOME EVALUATION: Ongoing assessment Goal: Fall Prevention-Safe Patient Handling Outcome: Ongoing (Interventions Implemented as Appropriate) 02/25/[id number]/25/[id number] Dominguez Fall Risk History of Falling -- 25 -- Secondary Diagnosis -- 15 -- Ambulatory Aids -- 0 -- Intravenous Therapy/Heparin/Saline Lock -- 20 -- Gait/Transferring -- 10 -- Mental Status -- 0 -- Score -- 70 -- OTHER Dominguez Fall Risk -- High -- Restraint Interventions Safety Promotion/Fall Prevention -- -- safety round/check completed Positioning Body Position -- independent -- Activity Activity Type ambulated in rodriguez -- -- Activity Assistance Provided assistance, stand-by -- -- Assistive Device Utilized front-wheel walker -- -- Goal: Infection Control Outcome: Ongoing (Interventions Implemented as Appropriate) 02/25/181999 Safety Interventions Isolation Precautions standard precautions maintained Infection Prevention environmental surveillance performed Coping Strategies Supportive Measures active listening utilized Goal: Discharge Needs Assessment Outcome: Ongoing (Interventions Implemented as Appropriate) 02/26/18418 Discharge Needs Assessment Readmission Within The Last 30 Days no previous admission in last 30 days Discharge Facility/Level Of Care Needs rehabilitation facility Discharge Disposition still a patient Goal: Interdisciplinary Rounds/Family Conf Outcome: Ongoing (Interventions Implemented as Appropriate) 02/26/18418 Interdisciplinary Rounds/Family Conf Participants patient Problem: Skin Integrity Impairment, Risk/Actual (Adult) Goal: Identify Related Risk Factors and Signs and Symptoms Related risk factors and signs and symptoms are identified upon initiation of Human Response Clinical Practice Guideline (CPG) Outcome: Ongoing (Interventions Implemented as Appropriate) 02/26/18418 Skin Integrity Impairment, Risk/Actual Skin Integrity Impairment, Risk/Actual: Related Risk Factors surgery/procedure Goal: Skin Integrity/Wound Healing Patient will demonstrate the desired outcomes by discharge/transition of care. Outcome: Ongoing (Interventions Implemented as Appropriate) 02/26/18418 Skin Integrity Impairment, Risk/Actual (Adult) Skin Integrity/Wound Healing making progress toward outcome Problem: Cardiac: ACS (Acute Coronary Syndrome) (Adult) Goal: Signs and Symptoms of Listed Potential Problems Will be Absent, Minimized or Managed (Cardiac: ACS) Signs and symptoms of listed potential problems will be absent, minimized or managed by discharge/transition of care (reference Cardiac: ACS (Acute Coronary Syndrome) (Adult) CPG). Outcome: Ongoing (Interventions Implemented as Appropriate) 02/26/18 0419 Cardiac: ACS (Acute Coronary Syndrome) Problems Assessed (Acute Coronary Syndrome (ACS)) all Problems Present (Acute Coronary Syndrome (ACS)) none * Brief Op Note - Jasvir Magana MD - 02/25/2018 1:44 PM EDT Brief Operative Note Patient Name: Danette George : [id number] MR#: [id number] Case Date: 02/25/2018 Interventional Cardiologists: * Jasvir Magana MD - Primary * Tiffanie Arshad MD - Fellow-Interventional Procedure(s) performed: Coronary Angiography, Left Heart Cath Baseline Frailty Assessment: MANAGING WELL (3): Definitions from [place] Study of Health and Aging Clinical Frailty Scale A time-out was conducted prior to the start of the procedure to verify the correct patient and procedure, procedure location, and all relevant critical information. Access: Right Radial Artery Preliminary findings: Coronary Angiography: Anatomically normal right dominant circulation LMCA: Without angiographic apparent disease LAD: Without angiographic apparent disease LCx: Without angiographic apparent disease RCA: Without angiographic apparent disease LVEDP: ~8 mmHg Contrast: ~32 cc Hemostasis: Right radial sheath was removed at case completion with hemostasis obtained with mechanical (TR Band) compression The patient tolerated the procedure well and was transferred from the cardiac catheterization lab to the CRU in stable condition without apparent complications. Full report to follow. 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 Refer to flowsheets for VS. Denied CP or SOB. SR on tele. Cont to monitor. PLAN MOVING FORWARD: NPO for cath INDIVIDUALIZED FALL PREVENTION INTERVENTIONS: Patient-specific fall risk factors per assessment: [current deficits]: General weakness, hospitalization, Wires/gtts Assistance [level of assistance required for transfers and ambulation]: SBA Supervision [direct monitoring required during toileting and ADLs]: SBA Surveillance [continuous indirect monitoring]: Tele, purposeful rounding Patient-specific fall prevention interventions for sensory deficits provided, if applicable: [X] Yes CPG GOAL OUTCOME EVALUATION: Goal: Individualization & Mutuality Outcome: Ongoing (Interventions Implemented as Appropriate) 02/23/18 1600 Mutuality/Individual Preferences What Anxieties, Fears or Concerns Do You Have About Your Health or Care? non What Questions Do You Have About Your Health or Care? none What Information Would Help Us Give You More Personalized Care? none Goal: Fall Prevention-Safe Patient Handling Outcome: Ongoing (Interventions Implemented as Appropriate) 02/24/18 19502/25/18 0349 Dominguez Fall Risk History of Falling 25 -- Secondary Diagnosis 15 -- Ambulatory Aids 0 -- Intravenous Therapy/Heparin/Saline Lock 20 -- Gait/Transferring 10 -- Mental Status 15 -- Score 85 -- OTHER Dominguez Fall Risk High -- Restraint Interventions Safety Promotion/Fall Prevention -- safety round/check completed Positioning Body Position supine, head elevated -- Activity Activity Type activity adjusted per tolerance -- Activity Assistance Provided assistance, 1 person -- Assistive Device Utilized front-wheel walker -- Goal: Infection Control 02/24/181951 Safety Interventions Isolation Precautions standard precautions maintained Infection Prevention environmental surveillance performed;rest/sleep promoted Coping Strategies Supportive Measures active listening utilized;self-care encouraged Goal: Discharge Needs Assessment Outcome: Ongoing (Interventions Implemented as Appropriate) 02/23/18 0425 02/23/18 1600 02/24/18 0350 Discharge Needs Assessment Concerns To Be Addressed denies needs/concerns at this time -- -- Discharge Disposition -- -- still a patient Activity/Self Care Review of Systems Equipment Currently Used at Home -- -- -- Living Environment Transportation Available -- family or friend will provide -- 02/24/18 1501 Discharge Needs Assessment Concerns To Be Addressed -- Discharge Disposition -- Activity/Self Care Review of Systems Equipment Currently Used at Home cane, straight (Has a rollator if she needs it.) Living Environment Transportation Available -- Goal: Interdisciplinary Rounds/Family Conf Outcome: Ongoing (Interventions Implemented as Appropriate) 02/23/18 5805 Interdisciplinary Rounds/Family Conf Participants nursing;patient;physician * Plan of Care - Nallely Briggs, PT - 02/24/2018 4:01 PM EDT Physical Therapy Evaluation Pertinent History of Current Problem: 77 y.o. female with a PMH of COPD, vitamin B12 deficiency, PTSD, lung nodule, memory loss, OA, fibrocystic breast disease, MDD, colitis, GERD, and chronic pain who was transferred from OSH with NSTEMI. At OSH, pt was treated for COPD exacerbation and was transferred to [facility] with elevated cardiac biomarkers, presumed NSTEMI. Her COPD exacerbation has improved and pt no longer requires oxygen. TTE showing wall motion abnormalities, and with troponin elevationNSTEMI diagnosis was confirmed. Benefits and risks of cardiac catheterization have been discussed with patient and she has adamantly refused the procedure on multiple occasions, and we are currently managing her NSTEMI medically. Precautions/Restrictions: cardiac, fall (NSTEMI. HTN. Bleeding precaution. Memory impairment.) Precautions Comments: Anxiety. B ANGELINA and TKA. Assessment: Pt seen for Physical therapy evaluation; gait, transfer, bed mobility and endurance training; pt ed and dc planning. Pt requiring skilled PT, due to functional limitations given some of the evaluated impairments: aerobic capacity/endurance;arousal, attention, and cognition;gait, locomotion, and balance;muscle performance;motor function;ventilation and respiration/gas exchange (chronic pain). Pt with recent NSTEMI and COPD exacerbation. Pt is most limited by ongoing GASPAR and coughing. Pt gets quite anxious but is motivated and willing to work with PT. Pt feels she could notfunction alone at home this time and has no family that could stay with her to assist.. Currently, pt is refusing a cardiac cath but is agreeable to medical management. Feel anxiety and lung dysfunction play a big part in her impaired functional abilities. Pt also has had 2 weeks of progressive weakness given her failing health, elderly age, and chronic medical conditions.. Please see associated flow sheet data below for objective information regarding today's session. Pt is agreeable to a rehab stay to maximize her functional independence prior to home alone. She sleeps in a recliner at baseline and has been falling more at home. Would benefit from an OT evaluation of ADLs and energy conservation techniques. Staff Mobility Recommendations: Cga with FWW, ~50'. Anticipated Discharge Disposition: (would benefit from rehab to maximize functional independence) NALLELY BRIGGS, PT Pager: [phone] Inpatient Physical Therapy 02/24/18 1501 Rehab Evaluation Document Type evaluation Total Evaluation Minutes, Physical Therapy 36 Patient Effort adequate Symptoms Noted During/After Treatment fatigue;shortness of breath General Information Patient/Family/Caregiver Comments/Observations I am just too weak to go home alone. If I could just get a little stronger first. If I get a coughing spell like this at home, I could . General Observations of Patient Pt in bed at start and end of the session. Refused to sit in the chair due to discomfort. Pertinent History of Current Problem 77 y.o. female with a PMH of COPD, vitamin B12 deficiency, PTSD, lung nodule, memory loss, OA, fibrocystic breast disease, MDD, colitis, GERD, and chronic pain who was transferred from OSH with NSTEMI. At OSH, pt was treated for COPD exacerbation and was transferred to [facility] with elevated cardiac biomarkers, presumed NSTEMI. Her COPD exacerbation has improved and pt no longer requires oxygen. TTE showing wall motion abnormalities, and with troponin elevation NSTEMI diagnosis was confirmed. Benefits and risks of cardiac catheterization have been discussed with patient and she has adamantly refused the procedure on multiple occasions, and we are currently managing her NSTEMI medically. Hearing Precautions/Limitations WFL Precautions/Restrictions cardiac;fall (NSTEMI. HTN. Bleeding precaution. Memory impairment.) Precautions Comments Anxiety. B ANGELINA and TKA. Limitations/Impairments safety/cognitive Treatment Number PT 1 Living Environment Patient population Adult Living Environment Living Environment Comment Pt is and retired. Lives alone in an apartment with no stairs to enter. Has 4 children that live nearby. Uses a cane to walk. Pt has a dog she cares for. A son brings her to get groceries or she takes public transportation. Functional Level Prior Ambulation 1-->assistive equipment Transferring 1-->assistive equipment Prior Functional Level Comment H/o Falls, recently observed by neighbors. 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 B hip, kneeand ankle DF strength ~ 4/5 Mobility Assessment/Training Additional Documentation Bed Mobility Assessment/Treatment (Group);Gait Assessment/Treatment (Group);Transfer Assessment/Treatment (Group) Bed Mobility Assessment/Treatment Assistive Device (Bed Mobility) bed rails (HOB elevated.) [id number] Trevor (Bed Mobility) contact guard assist Hcl-rc-Mqsmrs Trevor (Bed Mobility) contact guard assist Impairments (Bed Mobility) strength decreased Comment (Bed Mobility) slow with increased effort to get legs into bed. Transfer Assessment/Treatment Trevor (Sit-Stand Transfers) contact guard assist Trevor (Stand-Sit Transfers) contact guard assist [id number] Assistive Device (Transfers) rolling walker Impairments (Transfers) balance impaired;strength decreased Gait Assessment/Treatment Trevor (Gait) contact guard assist Assistive Device (Gait) rolling walker Distance in Feet (Gait) ~50' Gait Pattern Analysis swing-through gait Deviations (Gait) evette decreased;step length decreased Impairments (Gait) balance impaired;strength decreased Comment (Gait) GASPAR. C/o dry mouth. Tight coughing Respiratory WDL Respiratory WDL cough Rhythm/Pattern, Respiratory dyspnea on exertion Suction Method not required Cough Frequency frequent Cough Type productive;tight;bronchospastic Cardiovascular WDL (Adult) Cardiac WDL (HTN) Skin WDL Skin WDL WDL Coping Observed Emotional State anxious;apprehensive;cooperative Plan of Care Review Plan Of Care Reviewed With patient Progress progress towards functional goals is fair Physical Therapy Goal Types Physical Therapy Goal Types Gait Training Goal (Group);Transfer Training Goal (Group);Physical Therapy Goal (Group) Gait Training Goal Gait Training Goal, Date Established 02/24/18 Gait Training Goal, Time to Achieve 2 wks Gait Training Goal, Trevor Level conditional independence Gait Training Goal, Assist Device (Most appropriate device) Gait Training Goal, Distance to Achieve 100' (VSS) Transfer Training Goal Transfer Training Goal, Date Established 02/24/18 Transfer Training Goal, Time to Achieve 2 wks Transfer Training Goal, Activity Type upp-uv-tlyfx/[id number]-[id number] Transfer Train Goal, Trevor Level conditional independence Transfer Training Goal, Assist Device (most appropriate device) Physical Therapy Goal PT Goal, Date Established 02/24/18 PT Goal, Time to Achieve 2 wks PT Goal, Activity Type Pt demonstrates understanding of energy conservation techniques during gait and other functional tasks. PT Goal, Additional Goal Pt demonstrates understanding of deep breating/relaxed breathing techniques. Clinical Impression Criteria for Skilled Therapeutic Interventions Met yes;treatment indicated Impairments Found (describe specific impairments) aerobic capacity/endurance;arousal, attention, and cognition;gait, locomotion, and balance;muscle performance;motor function;ventilation and respiration/gas exchange (chronic pain) Functional Limitations in Following Categories (Describe Specific Limitations) self-care;home management Therapy Frequency 2-4 times/wk Anticipated Equipment Needs at Discharge (likely none) Anticipated Discharge Disposition (would benefit from rehab to maximize functional independence) Demonstrates Need for Referral to Another Service occupational therapy General Interventions Additional Documentation Planned Therapy Interventions (Group) Planned Therapy Interventions balance training;bed mobility training;gait training;patient/family education;strengthening;transfer training 2016 PT Evaluation Code Rationale: ?? Diagnosis & Pertinent Co-Morbidities, personal factors, and present illness affecting Plan of Care: Patient Active Problem List Diagnosis Code ??? Nevus D22.9 ??? Seborrheic keratosis L82.1 ??? NSTEMI (non-ST elevated myocardial infarction) I21.4 COPD Vit B12 deficiency R wrist fx PTSD Lung nodule OA Memory loss OA MDD Colitis Gerd Fibromyalgia B ANGELINA B TKA Additional personal factors or co-morbidities that impact plan: ?? Total # of Factors: 0 1-2 3+ x ?? Examination of body system impairments, functional limitations and behaviors, and/or participation restrictions. Addressing 1-2 elements Addressing 3 + elements Addressing 4 + elements x ?? Clinical presentation: See assessment above. Stable/Uncomplicated Evolving/Fluctuating Symptoms Unstable/Unpredictable x ?? Clinical decision making of Highly complexity based on pt's functional performance as outlined in this evaluation. * Plan of Care - Dana Stevenson RN - 02/24/2018 3:53 AM EDT Problem: Patient Care Overview Goal: Plan of Care Review Outcome: Ongoing (Interventions Implemented as Appropriate) 02/23/18 1527 02/23/181929 Plan of Care Review Progress no change -- Coping/Psychosocial Plan Of Care Reviewed With -- patient OUTCOME EVALUATION NOTE: OUTCOME SUMMARY: A&O. Refer to flowsheets for VS. Denied CP or SOB. SR on tele. PRN guaifenesin for cough. Cont to monitor. PLAN MOVING FORWARD: NPO for cath INDIVIDUALIZED FALL PREVENTION INTERVENTIONS: Patient-specific fall risk factors per assessment: [current deficits]: General weakness, hospitalization, Wires/gtts Assistance [level of assistance required for transfers and ambulation]: 1A Supervision [direct monitoring required during toileting and ADLs]: 1A Surveillance [continuous indirect monitoring]: Tele, purposeful rounding, cont pulse ox Patient-specific fall prevention interventions for sensory deficits provided, if applicable: [X] Yes CPG GOAL OUTCOME EVALUATION: Goal: Individualization & Mutuality Outcome: Ongoing (Interventions Implemented as Appropriate) 02/23/18 1600 Mutuality/Individual Preferences What Anxieties, Fears or Concerns Do You Have About Your Health or Care? non What Questions Do You Have About Your Health or Care? none What Information Would Help Us Give You More Personalized Care? none Goal: Fall Prevention-Safe Patient Handling Outcome: Ongoing (Interventions Implemented as Appropriate) 02/23/18 19302/23/18 2200 Dominguez Fall Risk History of Falling 25 -- Secondary Diagnosis 15 -- Ambulatory Aids 0 -- Intravenous Therapy/Heparin/Saline Lock 20 -- Gait/Transferring 10 -- Mental Status 15 -- Score 85 -- OTHER Dominguez Fall Risk High -- Restraint Interventions Safety Promotion/Fall Prevention -- safety round/check completed Positioning Body Position supine, head elevated -- Activity Activity Type activity adjusted per tolerance -- Activity Assistance Provided assistance, 1 person -- Assistive Device Utilized front-wheel walker -- Goal: Infection Control Outcome: Ongoing (Interventions Implemented as Appropriate) 02/23/18 1930 Safety Interventions Isolation Precautions standard precautions maintained Infection Prevention environmental surveillance performed Coping Strategies Supportive Measures active listening utilized Goal: Discharge Needs Assessment Outcome: Ongoing (Interventions Implemented as Appropriate) 02/23/18 0425 02/23/18 1600 02/24/18 0350 Discharge Needs Assessment Concerns To Be Addressed denies needs/concerns at this time -- -- Discharge Disposition -- -- still a patient Living Environment Transportation Available -- family or friend will provide -- Goal: Interdisciplinary Rounds/Family Conf Outcome: Ongoing (Interventions Implemented as Appropriate) 02/23/18 0425 Interdisciplinary Rounds/Family Conf Participants nursing;patient;physician * Plan of Care - Heather Espinosa RN - 02/23/2018 3:30 PM EDT Problem: Patient Care Overview Goal: Plan of Care Review Outcome: Ongoing (Interventions Implemented as Appropriate) 02/23/18 1527 Plan of Care Review Progress no change Coping/Psychosocial Plan Of Care Reviewed With patient OUTCOME EVALUATION NOTE: OUTCOME SUMMARY: Intermittent anxiety re: hospitialisation and testing. Refusing cardiac cath, team aware. SBA to BR. Adriana hernandez PLAN MOVING FORWARD: Per plan INDIVIDUALIZED FALL PREVENTION INTERVENTIONS: Patient-specific fall risk factors per assessment: [current deficits]: Weak, anxious Assistance [level of assistance required for transfers and ambulation]: sba Supervision [direct monitoring required during toileting and ADLs]: sba Surveillance [continuous indirect monitoring]: rounds Patient-specific fall prevention interventions for sensory deficits provided, if applicable: CPG GOAL OUTCOME EVALUATION: Problem: Cardiac: ACS (Acute Coronary Syndrome) (Adult) Goal: Signs and Symptoms of Listed Potential Problems Will be Absent, Minimized or Managed (Cardiac: ACS) Signs and symptoms of listed potential problems will be absent, minimized or managed by discharge/transition of care (reference Cardiac: ACS (Acute Coronary Syndrome) (Adult) CPG). Outcome: Ongoing (Interventions Implemented as Appropriate) 02/23/18 1527 Cardiac: ACS (Acute Coronary Syndrome) Problems Assessed (Acute Coronary Syndrome (ACS)) all Problems Present (Acute Coronary Syndrome (ACS)) none * Initial Assessments - Danette Juan RN - 02/23/2018 2:35 PM EDT Office of Care Management Initial Assessment Danette Juan RN reviewed record and discussed patient with Care Team. Source of Information: patient and her two daughters at bedside, Nallely George & Mignon Rooney Introduced self/reviewed role; services accepted. Reason for Hospitalization: NSTEMI, scheduled cardiac cath today No past medical history on file. No past surgical history on file. Hospitalizations Within the Past 30 Days: ? Anticipated Length Of Stay: 2 to 3 days Current Decision-Making Capacity: OX4, cognitively intact to make decisions Advance Care Planning: none listed in eDH, patient states she has two [place] booklets at home not completed. She appoints her daughter, Nallely George, [facility], , and daughter, [facility], [facility], Current Coping/Education/Information Needs: patient sitting up in bed, awake, alert, anxious about consenting to cardiac catherization she has declined this procedure today. Her family would like herto reconsider and have cath to evaluate her arteries. Current Functional Ability: one assist Functional Status Prior to Admission: independent w/ADL's Home Environment: lives alone in elderly housing apartment, one level, does not drive anymore Social & Family Supports/Community Resources: support from her 4 adult children, Mignon Dickerson, Ken & Damon, most live close by to patient and are support persons in her life, she also has a cute lap-dog named Behavioral Health History: none listed in eDH Substance Use/Abuse: Social History Substance Use Topics ??? Smoking status: Former Smoker Packs/day: 1.00 Years: 63.00 Types: Cigarettes Quit date: 02/23/2018 ??? Smokeless tobacco: Never Used Comment: Received tobacco cessation consult. NRT ordered. Given [facility] Tobacco Treatment packet ??? Alcohol use None Other Pertinent/Service Specific Information: none Health/Prescription Coverage: Primary Insurance: MEDICARE [place] Secondary Insurance: MEDICAID [place] Prescription Coverage: yes, no financial concerns Preferred Pharmacy: ? Other: none Primary Care Provider: Ana Dwyer MD [phone] Patient/Caregiver Goals of Treatment: per medical team recommendations at discharge, patient has made a decision to stop smoking Potential Needs for Transition of Care: Rehab/SNF: no Home Health: possible VNA at d/c for med management & home safety eval with PT, [facility] covers patient's area DME: no Dialysis: no Community Resources: unknown Transportation: ride home with family Other: none Anticipated Barriers to Discharge/Special Considerations: none anticipated at this time Assessment: Admit for NSTEMI, was awaiting cardiac cath but patient has declined at this time, she is very anxious and afraid of procedure. RN-JEANNINE discussed cardiac cath procedure with patient to allay her fears. also discussed procedure with patient & her daughters. Plan: discharge to home when medically ready, possible need for VNA services at discharge. A member of the Care Management team will continue to monitor progress, follow for continuity of care and assist with transition of care planning. Danette Juan RN Pager: [phone] * Consult Note - Lester Ernst RN - 02/23/2018 1:27 PM EDT TOBACCO DEPENDENCE TREATMENT NOTE 02/23/2018 Name: Danette George Date of : 1940 Patient Active Problem List Diagnosis Date Noted ??? NSTEMI (non-ST elevated myocardial infarction) 02/22/2018 ??? Seborrheic keratosis 01/27/2013 ??? Nevus 07/08/2011 No past medical history on file. No past surgical history on file. Current Facility-Administered Medications Medication Dose Route Frequency Provider Last Rate Last Dose ??? levofloxacin (LEVAQUIN) 750 mg in dextrose 5% 150 mL 750 mg Intravenous Q24H Yong Cline MD Stopped at 02/23/18 0731 ??? ipratropium-albuterol (DUONEB) 0.5 mg-3 mg(2.5 mg base)/3 mL nebulizer solution 3 mL 3 mL Nebulization Q4H While awake Angel Machado MD 3 mL at 02/23/18 1118 ??? sodium chloride 0.9% infusion 100 mL/hr Intravenous Continuous Earnest Burks MD Stopped at 02/23/18 1100 ??? citalopram (CeleXA) tablet 40 mg 40 mg Oral Daily Angel Machado MD 40 mg at 02/23/18 1155 ??? gabapentin (NEURONTIN) capsule 900 mg 900 mg Oral Nightly Angel Machado MD 900 mg at 02/22/18 2142 ??? sodium chloride 0.9 % flush 5 mL 5 mL Intravenous BID Angel Machado MD 5 mL at 02/23/18 0841 ??? sodium chloride 0.9 % flush 5-20 mL 5-20 mL Intravenous Q1 Min PRN Angel Machado MD ??? lidocaine (XYLOCAINE) 10 mg/mL (1 %) injection 3 mg 0.3 mL Subcutaneous Once PRN Audrey Machado MD ??? nitroGLYcerin (NITROSTAT) SL tablet 0.4 mg 0.4 mg Sublingual Q5 Min PRN Angel Machado MD ??? atorvastatin (LIPITOR) tablet 40 mg 40 mg Oral QPM Angel Machado MD 40 mg at 02/22/18 1940 ??? aspirin chewable tablet 81 mg 81 mg Oral Daily Angel Machado MD 81 mg at 02/23/18 0840 ??? clopidogrel (PLAVIX) tablet 75 mg 75 mg Oral Daily Angel Machado MD 75 mg at 02/23/18 0840 ??? predniSONE (DELTASONE) tablet 40 mg 40 mg Oral Daily Angel Machado MD 40 mg at 02/23/18 0840 ??? heparin (porcine) injection 0-4,000 Units 0-4,000 Units Intravenous BOLUS HEPARIN PP Angel Machado MD And ??? heparin 25,000 units in dextrose 5% 500 mL infusion 0-5,000 Units/hr Intravenous Continuous Angel Machado MD 17 mL/hr at 02/23/18 1252 850 Units/hr at 02/23/18 1252 ??? dextromethorphan-guaiFENesin (ROBITUSSIN) 10-100 mg/5 mL oral syrup 5 mL 5 mL Oral Q4H PRN Angel Machado MD 5 mL at 06/26/18 0921 ??? gabapentin (NEURONTIN) capsule 600 mg 600 mg Oral Daily at Noon SobDewayne dalton MD 600 mg at 02/23/18 113 ??? metoprolol (LOPRESSOR) tablet 12.5 mg 12.5 mg Oral Q6H NONI Angel Machado MD 12.5 mg at 02/23/18 1139 ??? acetaminophen (TYLENOL) tablet 650 mg 650 mg Oral Q6H Angel Machado MD 650 mg at 02/23/181138 Allergies Allergen Reactions ??? Penicillins CIS - Hives ??? Cephalosporins CIS - Hives ??? Lisinopril CIS - Hives ??? Sulfa (Sulfonamide Antibiotics) CIS - Hives Social History Substance Use Topics ??? Smoking status: Former Smoker ??? Smokeless tobacco: Not on file ??? Alcohol use Not on file No family history on file. Reason for visit: Danette George was referred for smoking cessation counseling. Danette George is a 77 y.o female admitted with a NSTEMI and is a current everyday smoker. The following information has been reviewed with the patient: Social History: Marital status: ETOH: No Drug use: No Caffeine: 2 cups coffee/day Pets: dog, Havenese named Zaira Smoking history: Type of tobacco used: ( ) Smokeless tobacco ( ) e-cigarette ( X)Cigarettes Brand currently smoking:[employer]s Current amount: 0.5-1 ppd Cost per pack: $8.00 Age initiated: 14 Years smoked: 55 Most smoked: 2 ppd Previous quit attempts and methods: Cold-turkey, patches/gum Most recent quit attempt: Early 80s. Cold-turkey. Remained tobacco-free for 10 years. Trigger for relapse identified as going through divorce. Are there other smokers in the home: No Are there children in the home: No What will be different this time: They told me I have to quit. I have no choice. Reasons for quitting: My health, of course. My breathing. I constantly feel like I can't catch my breath. Concerns about quitting: All I know is, I don't want to feel like I did the other day when I came in. Never again. Concerns about weight gain: No Triggers for smoking: Daily habit, routine, boredom. Ready to set a quit date: 02/23/2018 Importance/Confidence Scale (How important is it for her to quit/How confident patient is that she can quit on scale of 0(Not at all important)-10(Highest importantance): 10 What would help increase confidence: It's a pretty scary feeling when you can't breathe. I don't ever want to feel that way again. NICOTINE DEPENDENCE 0 Points 1Points 2 Points 3 Points Score 1.How soon after you wake do you smoke your first cigarette? After 60 minutes 31-60 minutes minutes 6-30 minutes Within 5 minutes 2 2. Do you find it difficult to refrain from smoking in places where it is forbidden ex episcopalian No Yes 0 3. Which cigarette would you hate to give up ? All others The first one in the morning 1 4. How many cigarette do you smoke a day ? 10 or less 11-20 21-30 30 or more 1 Do you smoke more frequently during the first hour after waking than the rest of the day? No Yes 1 6. Do you smoke if you are so ill that you are in bed all day ? No Yes 1 Fagerstrom Score: 6 Classification: 0-2 Very low 3-4 Low 5 Moderate 6-7 High 8-10 Very high Vitals Admission (Current) from 02/22/2018 in Intermediate Cardiac Care Unit [facility] Weight 60.6 kg (133 lb 9.6 oz) Height 157.5 cm (5' 2) BSA (Calculated - sq m) 1.64 sq meters BMI (Calculated) 24.8 Temp 36.6 ??C (97.9 ??F) Temp src Axillary Heart Rate 71 Heart Rate Source SaO2 Resp 20 BP 115/76 Patient Position Lying SpO2 96 % Stage of Change: Preparation Precontemplative: Contemplative: Preparation: X Action: Maintenance: Assessment/Plan: Danette George has a Fagerstrom Score of 6, indicating a high dependence on nicotine.I reviewed the physiology of addiction as well as apparent health risks specific for her. I discussed the options for treatment including nicotine replacement therapy (NRT), Zyban and Chantix. I reviewed possible side effects of therapy. I stressed that medication alone is not optimum but used in conjunction with behavioral counseling will add to success for cessation. The patient decided that the best course of action for her would be NRT. She also reports that she has been taking Wellbutrin for her depression; however, her MAR indicates Celexa. If she is, in fact, taking Wellbutrin, there is evidence that supports the concurrent use of NRT with Wellbutrin to improve quitting smoking success rate. I advised her that she will be responsible for purchasing her first 2 weeks of nicotine replacementtherapy and that she can expect to receive products from the quit line in 7-10 days. She is interested in using the Tobacco Cessation Clinic in [facility] that is a member of the [address] [place] [address] Partnership. The quit line will be able to provide more information for her. She is hesitant to use the quitline service because she hates talking on the phone. I encouraged her to give the program a chance and if it doesn't work for her then she can try the clinic. She verbalized understanding. I reviewed several tips for helping with quitting including the 4D's, using straws cut the length of cigarettes, cinnamon sticks, flavored toothpicks, sugar free candy, etc. The patient has also beenprovided with a [facility] Smoking Cessation packet and the contents have been reviewed with her. I reviewed with her Helping you decide about Lung Cancer Screening handout and encouraged him to follow-up with his PCP if he should choose to have the screening and/or has further questions. The patient has my card with my contact information and has been encouraged to call if she has additional questions or concerns. Referral to [address] [place] [address] placed. I requested to have her start using the 21 mg nicotine patch daily with the 2 mg nicotine gum PRN. She is presently having cravings and may need a little more rescue until she's able to feel the relief of the patch. We reviewed the chew & park method for the gum. Instructions for NRT will be included in AVS for her review. Lester Ernst, MSN, RN-, [facility] Pager #[phone] * Plan of Care - Dana Stevenson RN - 02/23/2018 4:30 AM EDT Problem: Patient Care Overview Goal: Plan of Care Review Outcome: Ongoing (Interventions Implemented as Appropriate) 02/22/18193002/23/18424 Plan of Care Review Progress -- progress towards functional goals is fair Coping/Psychosocial Plan Of Care Reviewed With patient -- OUTCOME EVALUATION NOTE: OUTCOME SUMMARY: A&O. Refer to flowsheets for VS. Denied CP or SOB. SR on tele. Slept majority of night. PFT done overnight. BG monitored. Cont to monitor. PLAN MOVING FORWARD: Monitor kidney status Diurese? D/c when appropriate INDIVIDUALIZED FALL PREVENTION INTERVENTIONS: Patient-specific fall risk factors per assessment: [current deficits]: General weakness, hospitalization, Wires/gtts Assistance [level of assistance required for transfers and ambulation]: SBA Supervision [direct monitoring required during toileting and ADLs]: SBA Surveillance [continuous indirect monitoring]: Tele, purposeful rounding Patient-specific fall prevention interventions for sensory deficits provided, if applicable: [X] Yes CPG GOAL OUTCOME EVALUATION: Goal: Fall Prevention-Safe Patient Handling Outcome: Ongoing (Interventions Implemented as Appropriate) 02/22/18193002/23/18 035 Dominguez Fall Risk History of Falling 25 -- Secondary Diagnosis 15 -- Ambulatory Aids 0 -- Intravenous Therapy/Heparin/Saline Lock 20 -- Gait/Transferring 10 -- Mental Status 15 -- Score 85 -- OTHER Dominguez Fall Risk High -- Restraint Interventions Safety Promotion/Fall Prevention -- safety round/check completed Positioning Body Position supine, head elevated;independent -- Activity Activity Type activity adjusted per tolerance -- Activity Assistance Provided assistance, 1 person -- Assistive Device Utilized front-wheel walker -- Goal: Infection Control Outcome: Ongoing (Interventions Implemented as Appropriate) 02/22/181930 Safety Interventions Isolation Precautions standard precautions maintained Infection Prevention environmental surveillance performed;rest/sleep promoted Coping Strategies Supportive Measures active listening utilized Goal: Discharge Needs Assessment Outcome: Ongoing (Interventions Implemented as Appropriate) 02/23/18424 Discharge Needs Assessment Concerns To Be Addressed denies needs/concerns at this time Discharge Disposition still a patient Goal: Interdisciplinary Rounds/Family Conf Outcome: Ongoing (Interventions Implemented as Appropriate) 02/23/18424 Interdisciplinary Rounds/Family Conf Participants nursing;patient;physician * Plan of Care - Dana Stevenson RN - 02/23/2018 4:28 AM EDT Problem: Patient Care Overview Goal: Plan of Care Review Outcome: Ongoing (Interventions Implemented as Appropriate) 02/22/18193002/23/18424 Plan of Care Review Progress -- progress towards functional goals is fair Coping/Psychosocial Plan Of Care Reviewed With patient -- OUTCOME EVALUATION NOTE: OUTCOME SUMMARY: A&O to person, and situation. Very lethargic, slept majority of shift. PRN medication for cough. 2nd iv placed. IV abx started. Heparin gtt maintained. Trops trended. Refer to flowsheets for VS. Denied CP or SOB. SR on tele. Cont to monitor. PLAN MOVING FORWARD: NPO for cath INDIVIDUALIZED FALL PREVENTION INTERVENTIONS: Patient-specific fall risk factors per assessment: [current deficits]: General weakness, hospitalization, Wires/gtts Assistance [level of assistance required for transfers and ambulation]: 1A Supervision [direct monitoring required during toileting and ADLs]: 1A Surveillance [continuous indirect monitoring]: Tele, purposeful rounding Patient-specific fall prevention interventions for sensory deficits provided, if applicable: [X] Yes CPG GOAL OUTCOME EVALUATION: Goal: Fall Prevention-Safe Patient Handling Outcome: Ongoing (Interventions Implemented as Appropriate) 02/22/18193002/23/18 035 Dominguez Fall Risk History of Falling 25 -- Secondary Diagnosis 15 -- Ambulatory Aids 0 -- Intravenous Therapy/Heparin/Saline Lock 20 -- Gait/Transferring 10 -- Mental Status 15 -- Score 85 -- OTHER Dominguez Fall Risk High -- Restraint Interventions Safety Promotion/Fall Prevention -- safety round/check completed Positioning Body Position supine, head elevated;independent -- Activity Activity Type activity adjusted per tolerance -- Activity Assistance Provided assistance, 1 person -- Assistive Device Utilized front-wheel walker -- Goal: Infection Control Outcome: Ongoing (Interventions Implemented as Appropriate) 02/22/181930 Safety Interventions Isolation Precautions standard precautions maintained Infection Prevention environmental surveillance performed;rest/sleep promoted Coping Strategies Supportive Measures active listening utilized Goal: Discharge Needs Assessment Outcome: Ongoing (Interventions Implemented as Appropriate) 02/23/18424 Discharge Needs Assessment Concerns To Be Addressed denies needs/concerns at this time Discharge Disposition still a patient Goal: Interdisciplinary Rounds/Family Conf Outcome: Ongoing (Interventions Implemented as Appropriate) 02/23/18 0425 Interdisciplinary Rounds/Family Conf Participants nursing;patient;physician documented in this encounter Plan of Treatment Scheduled Referrals Name Type Priority Associated Diagnoses Orde r Schedule [facility] [place] [facility] Outpatient Referral Routine Tobacco abuse Ordered: 02/23/2018 documented as of this encounter Procedures Procedure Name Priority Date/Time Associated Diagnosis Comments KILN FIREMAN SCAN 03/01/2018 12:00 AM EDT KILN FIREMAN SCAN 03/01/2018 12:00 AM EDT EKG 12-LEAD Routine 02/26/2018 7:35 AM EDT Chest pain, unspecified type HEMOGRAM Routine 02/26/2018 5:55 AM EDT DIFFERENTIAL, AUTOMATED Routine 02/27/20 5:55 AM EDT CBC (WITH DIFF) Routine 02/26/2018 5:55 AM EDT MAGNESIUM Routine 02/26/2018 5:55 AM EDT BASIC METABOLIC PANEL Routine 02/26/2018 5:55 AM EDT CARDIAC CATHETERIZATION Routine 02/26/20 18 1:45 PM EDT EKG 12-LEAD Routine 02/25/2018 7:20 AM EDT Chest pain, unspecified type SCAN, PERIPHERAL BLOOD Routine 8 4:57 AM EDT HEMOGRAM Routine 02/25/2018 4:57 AM EDT DIFFERENTIAL, AUTOMATED Routine 02/26/20 18 4:57 AM EDT CBC (WITH DIFF) Routine 02/25/2018 4:57 AM EDT MAGNESIUM Routine 02/25/2018 4:57 AM EDT BASIC METABOLIC PANEL Routine 02/25/2018 4:57 AM EDT EKG 12-LEAD Routine 02/24/2018 7:18 AM EDT Chest pain, unspecified type HEPARIN (UNFRACTIONATED) LEVEL Routine 02/24/2018 5:27 AM EDT SCAN, PERIPHERAL BLOOD Routine 8 5:27 AM EDT HEMOGRAM Routine 02/24/2018 5:27 AM EDT DIFFERENTIAL, AUTOMATED Routine 02/25/20 18 5:27 AM EDT CBC (WITH DIFF) Routine 02/24/2018 5:27 AM EDT MAGNESIUM Routine 02/24/2018 5:27 AM EDT BASIC METABOLIC PANEL Routine 02/24/2018 5:27 AM EDT HEPARIN (UNFRACTIONATED) LEVEL Timed 02/23/2018 12:00 PM EDT ECHO COMPLETE W CONTRAST Routine 02/23/2018 11:23 AM EDT Chest pain, unspecified type EKG 12-LEAD Routine 02/23/2018 7:22 AM EDT Chest pain, unspecified type HEPARIN (UNFRACTIONATED) LEVEL STAT 02/23/2018 6:00 AM EDT SCAN, PERIPHERAL BLOOD Routine 8 6:00 AM EDT HEMOGRAM Routine 02/23/2018 6:00 AM EDT DIFFERENTIAL, AUTOMATED Routine 02/24/20 18 6:00 AM EDT CARDIAC ENZYMES ([facility]) Routine 02/23/2018 6:00 AM EDT CBC (WITH DIFF) Routine 02/23/2018 6:00 AM EDT MAGNESIUM Routine 02/23/2018 6:00 AM EDT BASIC METABOLIC PANEL Routine 02/23/2018 6:00 AM EDT XR CHEST PA AND LATERAL Routine 02/24/20 18 5:37 AM EDT HEPARIN (UNFRACTIONATED) LEVEL STAT 02/22/2018 11:58 PM EDT CARDIAC ENZYMES ([facility]) Routine 02/22/2018 11:58 PM EDT URINE HOLD Routine 02/22/2018 5:54 PM EDT URINALYSIS WITH REFLEX CULTURE Routine 02/22/2018 5:54 PM EDT HEPARIN (UNFRACTIONATED) LEVEL STAT 02/22/2018 5:45 PM EDT HEMOGRAM Routine 02/22/2018 5:45 PM EDT DIFFERENTIAL, AUTOMATED Routine 02/23/20 5:45 PM EDT CARDIAC ENZYMES ([facility]) Routine 02/22/2018 5:45 PM EDT APTT Routine 02/22/2018 5:45 PM EDT PROTHROMBIN TIME Routine 02/22/2018 5:45 PM EDT CBC (WITH DIFF) Routine 02/22/2018 5:45 PM EDT MAGNESIUM Routine 02/22/2018 5:45 PM EDT BASIC METABOLIC PANEL Routine 02/22/2018 5:45 PM EDT EKG 12-LEAD STAT 02/22/2018 5:06 PM EDT Chest pain, unspecified type documented in this encounter Results * SCAN DOC: KILN FIREMAN (03/01/2018 12:00 AM EDT) Anatomical Region Laterality Modality Other Narrative 03/01/2018 12:00 AM EDT Ordered by an unspecified provider. Scanning Provider MEDIA MGR SCAN EXT O RDR/RSLT * SCAN DOC: KILN FIREMAN (03/01/2018 12:00 AM EDT) Anatomical Region Laterality Modality Other Narrative 03/01/2018 12:00 AM EDT Ordered by an unspecified provider. Scanning Provider MEDIA MGR SCAN EXT O RDR/RSLT * EKG 12 Lead (02/26/2018 7:35 AM EDT) Ventricular rate 54 BPM MUSE SYSTEM Atrial Rate 54 BPM MUSE SYSTEM P-R Interval 156 ms MUSE SYSTEM QRS Duration 84 ms MUSE SYSTEM Q-T Interval 410 ms MUSE SYSTEM QTC Calculated (Bezet) 388 ms MUSE SYSTEM Calculated P Webb 76 degrees MUSE SYSTEM Calculated R Webb 4 degrees MUSE SYSTEM Calculated T Webb 0 degrees MUSE SYSTEM INTERPRETATION Sinus bradycardia Cannot rule out Inferior infarct (cited on or before 25-FEB-2018) Abnormal ECG When compared with ECG of 25-FEB-2018 07:20, No significant change was found Confirmed by Gustavo YAÑEZ, [facility] ([id number]) on 02/26/2018 8:38:10 AM MUSE SYSTEM 02/26/2018 7:35 AM EDT 02/26/2018 8:38 AM EDT Chavez Dorantes MD ECG ORDERABLES MUSE SYSTEM * Differential, Automated (02/26/2018 5:55 AM EDT) Neutrophil % 53.8 % [facility] Neutrophil Absolute 4.03 1.70 - 6.10 x10(3)/[facility] Lymph % 38.3 % [facility] Lymphocytes Abs 2.9 0.9 - 3.2 x10(3)/[facility] Monocyte % 6.7 % [facility] Monocyte Abs 0.5 0.3 - 0.9 x10(3)/[facility] Eos % 0.8 % [facility] Eosinophils Abs 0.1 0.0 - 0.4 x10(3)/[facility] Basophil % 0.1 % [facility] Baso Absolute 0.0 0.0 - 0.1 x10(3)/[facility] Immature Gran % 0.30 % [facility] Comment: Immature granulocytes(IG's)percentage and absolute count will include metamyelocytes, myelocytes, and promyelocytes. Blood smears from CBCs yielding IG's will be scanned manually for concordance. If this scan disagrees with the automated IG or if promyelocytes are noted, a manual differential will be performed. Immature Gran Absolute 0.02 0.00 - 0.04 x10(3)/[facility] Blood specimen (specimen) 02/26/2018 5:55 AM EDT 02/26/2018 6:07 AM EDT Narrative Resulting Agency Comment Spec In Lab Angel Machado MD HEMATOLOGY ORDERABLE S [facility] [place] [address] * Hemogram (02/26/2018 5:55 AM EDT) White Blood Cell 7.5 4.0 - 9.5 x10(3)/[facility] Red Blood Cell 4.60 4.00 - 5.21 x10(6)/[facility] Hemoglobin 12.9 11.7 - 15.5 gm/dL [facility] Hematocrit 39.0 35.7 - 45.8 % [facility] Mean Cell Volume 84.8 82.6 - 94.4 fL [facility] Mean Cell Hemoglobin 28.0 27.1 - 32.0 pg [facility] Mean Cell Hemoglobin Concentration 33.1 31.7 - 35.0 gm/dL [facility] Platelet 239 145 - 357 x10(3)/[facility] RDW Standard Deviation 43.5 37.0 - 46.0 [facility] RDW coefficient of variation 14.0 11.5 - 14.1 % [facility] Mean Platelet Volume 10.2 7.6 - 12.9 [facility] NRBC% auto 0.0 % [facility] NRBC Absolute 0.000 0.000 - 0.000 x10(3)/[facility] Blood specimen (specimen) 02/26/2018 5:55 AM EDT 02/26/2018 6:07 AM EDT Narrative Resulting Agency Comment Spec In Lab Angel Machado MD HEMATOLOGY ORDERABLE S Performing Organization Address [facility] Co de Phone Number [facility] [place] [address] * Magnesium (02/26/2018 5:55 AM EDT) Magnesium 0.69 0.69 - 1.07 mmol/L [facility] Blood specimen (specimen) 02/26/2018 5:55 AM EDT 02/26/2018 6:07 AM EDT Narrative Resulting Agency Comment Spec In Lab Chavez Dorantes MD CHEMISTRY ORDERABLES Performing Organization Address [facility]/ZIP Co de Phone Number [facility] [place] [address] * (ABNORMAL) Basic Metabolic Panel (non-fasting) (02/26/2018 5:55 AM EDT) Glucose 89 65 - 199 mg/dL [facility] Comment:Diabetes: >=200 mg/d L plus symptoms Blood Urea Nitrogen 12 8 - 18 mg/dL [facility] Creatinine 0.48(L) 0.70 - 1.20 mg/dL [facility] Sodium 140 135 - 145 mmol/L [facility] Potassium 3.8 3.5 - 5.0 mmol/L [facility] Comment: Please note: ??Patients with WBC >100,000 may have falsely elevated Potassium levels. ??For accurate Potassium quantification in these patients send serum separator tube (gold top) for subsequent determinations. ??Contact the Clinical Chemistry Laboratory if there are any questions. Chloride 103 98 - 107 mmol/L [facility] Carbon Dioxide 23 22 - 31 mmol/L [facility] Anion Gap 14 5 - 15 mmol/L [facility] Calcium 8.8 8.5 - 10.5 mg/dL [facility] Est Glomerular Filtration Rate 96 >=60 mL/min/1. 73 m?? [facility] Comment: The eGFR was calculated using the CKD-EPI equation. As with all creatinine based estimates of kidney function, eGFR values calculated with the CKD-EPI equation are not accurate in patients with acute kidney failure, extremes of body mass or the acutely ill. [email or web address] eGFR 111 >=60 mL/min/1. 73 m?? [facility] Comment: The eGFR was calculated using the CKD-EPI equation. As with all creatinine based estimates of kidney function, eGFR values calculated with the CKD-EPI equation are not accurate in patients with acute kidney failure, extremes of body mass or the acutely ill. [email or web address] Blood specimen (specimen) 02/26/2018 5:55 AM EDT 02/26/2018 6:07 AM EDT Narrative Resulting Agency Comment Spec In Lab Chavez Dorantes MD CHEMISTRY ORDERABLES [facility] [place] [address] * CARDIAC CATHETERIZATION (02/25/2018 1:45 PM EDT) Anatomical Region Laterality Modality Other Narrative 02/25/2018 2:04 PM EDT ?[facility] ? Cardiac Catheterization/Intervention Report ? Patient Name: Doris, Danette L. ? Procedure Date: 02/25/2018 ? A #: [id number] ? Primary Physician: Magana, Jasvir V ? Case #: [id number] ? File Name: [id number] ? Catheterization Order Number: [id number] ? [facility] ? Final Report [place], [place] ? Patient Name: ? Danette George ? ID#: ?[id number] ? : ?1940 ? Procedure Date: ? February 25, 2018 ?Case #: ? [id number] ? Room: ? 1 ? Case Physician: ? Jasvir Magana M.D. ? Start: ?13:22 ?Fellow: ? Tiffanie Arshad M.D. ? Admission: ??02/22/2018 ? Referring Physician: ??Ana Dwyer M.D. ? Procedures: ?* Coronary Angiography ?* Left Heart Catheterization ? History ?Danette George is a 77 year old woman. She has a history of smoking (60 ?pack years) and is still smoking. The patient has a history of dyspnea ?with NYHA functional class II. She also has a history of chronic ?obstructive pulmonary disease. Prior to the initiation of this procedure, ?the patient was designated as ASA Class III. ? Patient Status at Catheterization: ?The patient presented with: non-STEMI (w/i 7 days). Nash ?Cardiovascular Society angina class was 0. This patient was on beta ?blockers prior to the procedure. No stress or imaging studies were ?performed prior to this procedure. The status of the diagnostic procedure ?was Urgent. ? Technique: ?A 6 SLFr sheath was inserted in the right radial artery utilizing the ?Seldinger technique. The left coronary artery was injected utilizing a ?5Fr JL 3.5 catheter. A 5Fr JR 4 catheter was used to inject the right ?coronary artery. Left ventricular pressure was performed with a 5Fr JR 4 ?catheter. 4,000 units of heparin were administered. A total of 50cc of ?Omnipaque were opened, 32cc of Omnipaque were administered and 18cc of ?Omnipaque were wasted. Radiation: Fluoro time was 2.2 minutes, dose area ?product was 22,397 mGYcm2 and air kerma was 404 mGY. ?The patient received the following medications prior to and during the ?procedure: Aspirin (any) and Clopidogrel. ? Hemodynamics: ?Left Heart Pressures ? Resting: ? Syst Diast ? EDP ?a ?v ? m ?Ao 112 ?? 68 ?85 ?LV 125 ? 8 ? Coronary Angiography: ?Dominance: Right ?Left Main ? The left main was normal, free of disease. ?Left Anterior Descending ? The left anterior descending (LAD) was normal, free of disease. ?Left Circumflex ? The left circumflex (LCX) was normal, free of disease. ?Right Coronary Artery ? The right coronary artery (RCA) was normal, free of disease. ? Vascular Access: ?Vascular Access Management: ? Mechanical Compression of the right radial artery access site was ? performed. ? Conclusions: ?* Normal coronary arteries ? Complications/Events: ?The patient had no complications during these procedures. ?The attending physician was present for the entire procedure. ?Dr. Jasvir Magana M.D. was present during the moderate sedation ?intraservice time as documented by the sedation nurse. ??Case time = 00:20. ?Dr. Jasvir Magana M.D. performed the coronary angiography and left heart ?catheterization. ? Jasvir Magana M.D. ? Electronically Signed by: Jasvir Magana M.D. ? Report Finalized: 02/25/2018 ??14:00 ? Procedure Note Jasvir Magana MD - 02/25/2018 [facility] Cardiac Catheterization/Intervention Report Patient Name: Danette George Procedure Date: 02/25/2018 A #: [id number] Primary Physician: Jasvir Magana V Case #: [id number] File Name: [id number] Catheterization Order Number: [id number] [facility] FinalReport [place], [place] Patient Name: Danette George ID#:[id number] :1940 Procedure Date: February 25, 2018 Case #: [id number] Room: 1 Case Physician: Jasvir Magana M.D. Start: 13:22 Fellow: Tiffanie Arshad M.D. Admission:02/22/2018 Referring Physician: Ana Dwyer M.D. Procedures: * Coronary Angiography * Left Heart Catheterization History Danette George is a 77 year old woman. She has a history of smoking(60 pack years) and is still smoking. The patient has a history ofdyspnea with NYHA functional class II. She also has a history of chronic obstructive pulmonary disease. Prior to the initiation of thisprocedure, the patient was designated as ASA Class III. Patient Status at Catheterization: The patient presented with: non-STEMI (w/i 7 days). [place] Cardiovascular Society angina class was 0. This patient was on beta blockers prior to the procedure. No stress or imaging studies were performed prior to this procedure. The status of the diagnosticprocedure was Urgent. Technique: A 6 SLFr sheath was inserted in the right radial artery utilizingthe Seldinger technique. The left coronary artery was injected utilizinga 5Fr JL 3.5 catheter. A 5Fr JR 4 catheter was used to inject theright coronary artery. Left ventricular pressure was performed with a 5FrJR 4 catheter. 4,000 units of heparin were administered. A total of 50ccof Omnipaque were opened, 32cc of Omnipaque were administered and 18ccof Omnipaque were wasted. Radiation: Fluoro time was 2.2 minutes, dosearea product was 22,397 mGYcm2 and air kerma was 404 mGY. The patient received the following medications prior to and duringthe procedure: Aspirin (any) and Clopidogrel. Hemodynamics: Left Heart Pressures Resting: Syst Diast EDP a v m Ao 112 68 85 LV 125 8 Coronary Angiography: Dominance: Right Left Main The left main was normal, free of disease. Left Anterior Descending The left anterior descending (LAD) was normal, free of disease. Left Circumflex The left circumflex (LCX) was normal, free of disease. Right Coronary Artery The right coronary artery (RCA) was normal, free of disease. Vascular Access: Vascular Access Management: Mechanical Compression of the right radial artery access sitewas performed. Conclusions: * Normal coronary arteries Complications/Events: The patient had no complications during these procedures. The attending physician was present for the entire procedure. Dr. Jasvir Magana M.D. was present during the moderate sedation intraservice time as documented by the sedation nurse. Case time =00:20. Dr. Jasvir Magana M.D. performed the coronary angiography and leftheart catheterization. Jasvir Magana M.D. Electronically Signed by: Jasvir Magana M.D. Report Finalized: 02/25/2018 14:00 Jasvir Mcclain MD CARDIAC CATH ORDERAB LES * EKG 12 Lead (02/25/2018 7:20 AM EDT) Ventricular rate 61 BPM MUSE SYSTEM Atrial Rate 61 BPM MUSE SYSTEM P-R Interval 154 ms MUSE SYSTEM QRS Duration 86 ms MUSE SYSTEM Q-T Interval 408 ms MUSE SYSTEM QTC Calculated (Bezet) 410 ms MUSE SYSTEM Calculated P Webb 54 degrees MUSE SYSTEM Calculated R Webb 1 degrees MUSE SYSTEM Calculated T Webb -11 degrees MUSE SYSTEM INTERPRETATION Normal sinus rhythm Inferior infarct (cited on or before 25-FEB-2018) T wave abnormality, consider anterior ischemia Abnormal ECG When compared with ECG of 24-FEB-2018 07:18, QT has shortened Confirmed by fellow MD Petar, Carson ([id number]) on 02/25/2018 9:03:56 AM Confirmed by MD Ganesh, Crispin ([id number]) on 02/25/2018 5:10:00 PM MUSE SYSTEM 02/25/2018 7:20 AM EDT 02/25/2018 5:10 PM EDT Chavez Dorantes MD ECG ORDERABLES MUSE SYSTEM * Scan, Peripheral Blood (02/25/2018 4:57 AM EDT) Pathologist [facility] Plat estimate Normal [facility] RBC Morphology Normal [facility] Blood specimen (specimen) 02/25/2018 4:57 AM EDT 02/25/2018 5:18 AM EDT Narrative Resulting Agency Comment Spec In Lab Angel Machado MD HEMATOLOGY ORDERABLE S [facility] [place] [address] * Differential, Automated (02/25/2018 4:57 AM EDT) Neutrophil % 49.5 % [facility] Neutrophil Absolute 3.58 1.70 - 6.10 x10(3)/[facility] Lymph % 42.0 % [facility] Lymphocytes Abs 3.0 0.9 - 3.2 x10(3)/[facility] Monocyte % 7.3 % [facility] Monocyte Abs 0.5 0.3 - 0.9 x10(3)/[facility] Eos % 0.6 % [facility] Eosinophils Abs 0.0 0.0 - 0.4 x10(3)/[facility] Basophil % 0.3 % [facility] Baso Absolute 0.0 0.0 - 0.1 x10(3)/[facility] Immature Gran % 0.30 % [facility] Comment: Immature granulocytes(IG's)percentage and absolute count will include metamyelocytes, myelocytes, and promyelocytes. Blood smears from CBCs yielding IG's will be scanned manually for concordance. If this scan disagrees with the automated IG or if promyelocytes are noted, a manual differential will be performed. Immature Gran Absolute 0.02 0.00 - 0.04 x10(3)/[facility] Blood specimen (specimen) 02/25/2018 4:57 AM EDT 02/25/2018 5:18 AM EDT Narrative Resulting Agency Comment Spec In Lab Angel Machado MD HEMATOLOGY ORDERABLE S [facility] [place] [address] * Hemogram (02/25/2018 4:57 AM EDT) White Blood Cell 7.2 4.0 - 9.5 x10(3)/[facility] Red Blood Cell 4.54 4.00 - 5.21 x10(6)/[facility] Hemoglobin 12.7 11.7 - 15.5 gm/dL [facility] Hematocrit 38.8 35.7 - 45.8 % [facility] Mean Cell Volume 85.5 82.6 - 94.4 fL [facility] Mean Cell Hemoglobin 28.0 27.1 - 32.0 pg [facility] Mean Cell Hemoglobin Concentration 32.7 31.7 - 35.0 gm/dL [facility] Platelet 236 145 - 357 x10(3)/[facility] RDW Standard Deviation 42.4 37.0 - 46.0 fL [facility] RDW coefficient of variation 13.6 11.5 - 14.1 % [facility] Mean Platelet Volume 10.2 7.6 - 12.9 fL [facility] NRBC% auto 0.0 % [facility] NRBC Absolute 0.000 0.000 - 0.000 x10(3)/[facility] Blood specimen (specimen) 02/25/2018 4:57 AM EDT 02/25/2018 5:18 AM EDT Narrative Resulting Agency Comment Spec In Lab Angel Machado MD HEMATOLOGY ORDERABLE S Performing Organization Address City/[facility]/ZIP Co de Phone Number [facility] [place] [address] * Magnesium (02/25/2018 4:57 AM EDT) Magnesium 0.75 0.69 - 1.07 mmol/L [facility] Blood specimen (specimen) 02/25/2018 4:57 AM EDT 02/25/2018 5:18 AM EDT Narrative Resulting Agency Comment Spec In Lab Chavez Dorantes MD CHEMISTRY ORDERABLES Performing Organization Address [facility] Co de Phone Number [facility] [place] [address] * (ABNORMAL) Basic Metabolic Panel (non-fasting) (02/25/2018 4:57 AM EDT) Glucose 91 65 - 199 mg/dL [facility] Comment:Diabetes: >=200 mg/d L plus symptoms Blood Urea Nitrogen 8 8 - 18 mg/dL [facility] Creatinine 0.44(L) 0.70 - 1.20 mg/dL [facility] Sodium 138 135 - 145 mmol/L [facility] Potassium 3.5 3.5 - 5.0 mmol/L [facility] Comment: Please note: ??Patients with WBC >100,000 may have falsely elevated Potassium levels. ??For accurate Potassium quantification in these patients send serum separator tube (gold top) for subsequent determinations. ??Contact the Clinical Chemistry Laboratory if there are any questions. Chloride 101 98 - 107 mmol/L [facility] Carbon Dioxide 26 22 - 31 mmol/L [facility] Anion Gap 11 5 - 15 mmol/L [facility] Calcium 9.0 8.5 - 10.5 mg/dL [facility] Est Glomerular Filtration Rate 99 >=60 mL/min/1. 73 m?? [facility] Comment: The eGFR was calculated using the CKD-EPI equation. As with all creatinine based estimates of kidney function, eGFR values calculated with the CKD-EPI equation are not accurate in patients with acute kidney failure, extremes of body mass or the acutely ill. [email or web address] [email or web address]/[facility]UCKnkf eGFR 114 >=60 mL/min/1. 73 m?? [facility] Comment: The eGFR was calculated using the CKD-EPI equation. As with all creatinine based estimates of kidney function, eGFR values calculated with the CKD-EPI equation are not accurate in patients with acute kidney failure, extremes of body mass or the acutely ill. [email or web address] Areankdep [email or web address]/[facility]ATTUCKnkf Blood specimen (specimen) 02/25/2018 4:57 AM EDT 02/25/2018 5:18 AM EDT Narrative Resulting Agency Comment Spec In Lab Chavez Dorantes MD CHEMISTRY ORDERABLES Performing Organization Address [facility] Co de Phone Number [facility] [place] [address] * EKG 12 Lead (02/24/2018 7:18 AM EDT) Ventricular rate 60 BPM MUSE SYSTEM Atrial Rate 60 BPM MUSE SYSTEM P-R Interval 148 ms MUSE SYSTEM QRS Duration 86 ms MUSE SYSTEM Q-T Interval 470 ms MUSE SYSTEM QTC Calculated (Bezet) 470 ms MUSE SYSTEM Calculated P Webb 43 degrees MUSE SYSTEM Calculated R Webb 3 degrees MUSE SYSTEM Calculated T Webb -33 degrees MUSE SYSTEM INTERPRETATION Normal sinus rhythm serial changes of inferolateral infarct ??(cited on or before 23-FEB-2018) Abnormal ECG When compared with ECG of 23-FEB-2018 07:22, T wave inversion more evident in Anterior leads ??may be secondary to lead placement No significant change was found Confirmed by fellow MD Petar, Carson ([id number]) on 02/24/2018 11:25:20 AM Confirmed by MD Ganesh, Crispin ([id number]) on 02/24/2018 1:03:02 PM MUSE SYSTEM 02/24/2018 7:18 AM EDT 02/24/2018 1:03 PM EDT Chavez Dorantes MD ECG ORDERABLES Performing Organization Address [facility] de Phone Number MUSE SYSTEM * Scan, Peripheral Blood (02/24/2018 5:27 AM EDT) Plat estimate Normal [facility] RBC Morphology Normal [facility] Blood specimen (specimen) 02/24/2018 5:27 AM EDT 02/24/2018 5:44 AM EDT Narrative Resulting Agency Comment Spec In Lab Angel Machado MD HEMATOLOGY ORDERABLE S Performing Organization Address [facility] Co de Phone Number [facility] [place] [address] * Differential, Automated (02/24/2018 5:27 AM EDT) Neutrophil % 58.3 % [facility] Neutrophil Absolute 5.02 1.70 - 6.10 x10(3)/[facility] Lymph % 33.2 % [facility] Lymphocytes Abs 2.9 0.9 - 3.2 x10(3)/[facility] Monocyte % 8.0 % [facility] Monocyte Abs 0.7 0.3 - 0.9 x10(3)/[facility] Eos % 0.1 % [facility] Eosinophils Abs 0.0 0.0 - 0.4 x10(3)/[facility] Basophil % 0.2 % [facility] Baso Absolute 0.0 0.0 - 0.1 x10(3)/[facility] Immature Gran % 0.20 % [facility] Comment: Immature granulocytes(IG's)percentage and absolute count will include metamyelocytes, myelocytes, and promyelocytes. Blood smears from CBCs yielding IG's will be scanned manually for concordance. If this scan disagrees with the automated IG or if promyelocytes are noted, a manual differential will be performed. Immature Gran Absolute 0.02 0.00 - 0.04 x10(3)/[facility] Blood specimen (specimen) 02/24/2018 5:27 AM EDT 02/24/2018 5:44 AM EDT Narrative Resulting Agency Comment Spec In Lab Angel Machado MD HEMATOLOGY ORDERABLE S [facility] [place] [address] * Hemogram (02/24/2018 5:27 AM EDT) White Blood Cell 8.6 4.0 - 9.5 x10(3)/[facility] Red Blood Cell 4.25 4.00 - 5.21 x10(6)/[facility] Hemoglobin 12.4 11.7 - 15.5 gm/dL [facility] Hematocrit 36.9 35.7 - 45.8 % [facility] Mean Cell Volume 86.8 82.6 - 94.4 fL [facility] Mean Cell Hemoglobin 29.2 27.1 - 32.0 pg [facility] Mean Cell Hemoglobin Concentration 33.6 31.7 - 35.0 gm/dL [facility] Platelet 231 145 - 357 x10(3)/[facility] RDW Standard Deviation 44.6 37.0 - 46.0 fL [facility] RDW coefficient of variation 13.9 11.5 - 14.1 % [facility] Mean Platelet Volume 10.5 7.6 - 12.9 fL [facility] NRBC% auto 0.0 % [facility] NRBC Absolute 0.000 0.000 - 0.000 x10(3)/[facility] Blood specimen (specimen) 02/24/2018 5:27 AM EDT 02/24/2018 5:44 AM EDT Narrative Resulting Agency Comment Spec In Lab Angel Machado MD HEMATOLOGY ORDERABLE S Performing Organization Address City/[facility] Co de Phone Number [facility] [place] [address] * Magnesium (02/24/2018 5:27 AM EDT) Magnesium 0.75 0.69 - 1.07 mmol/L [facility] Blood specimen (specimen) 02/24/2018 5:27 AM EDT 02/24/2018 5:43 AM EDT Narrative Resulting Agency Comment Spec In Lab Chavez Dorantes MD CHEMISTRY ORDERABLES Performing Organization Address [facility] Co de Phone Number [facility] [place] [address] * (ABNORMAL) Basic Metabolic Panel (non-fasting) (02/24/2018 5:27 AM EDT) Glucose 95 65 - 199 mg/dL [facility] Comment:Diabetes: >=200 mg/d L plus symptoms Blood Urea Nitrogen 8 8 - 18 mg/dL [facility] Creatinine 0.48(L) 0.70 - 1.20 mg/dL [facility] Sodium 136 135 - 145 mmol/L [facility] Potassium 3.4(L) 3.5 - 5.0 mmol/L [facility] Comment: Please note: ??Patients with WBC >100,000 may have falsely elevated Potassium levels. ??For accurate Potassium quantification in these patients send serum separator tube (gold top) for subsequent determinations. ??Contact the Clinical Chemistry Laboratory if there are any questions. Chloride 98 98 - 107 mmol/L [facility] Carbon Dioxide 27 22 - 31 mmol/L [facility] Anion Gap 11 5 - 15 mmol/L [facility] Calcium 8.6 8.5 - 10.5 mg/dL [facility] Est Glomerular Filtration Rate >60 >=60 [facility] Comment: The eGFR was calculated using the CKD-EPI equation. As with all creatinine based estimates of kidney function, eGFR values calculated with the CKD-EPI equation are not accurate in patients with acute kidney failure, extremes of body mass or the acutely ill. http://Cal[employer]/Grey Areankdep [email or web address]/[facility] eGFR 111 >=60 mL/min/1. 73 m?? [facility] Comment: The eGFR was calculated using the CKD-EPI equation. As with all creatinine based estimates of kidney function, eGFR values calculated with the CKD-EPI equation are not accurate in patients with acute kidney failure, extremes of body mass or the acutely ill. http://[employer] Areankdep [email or web address]://[email or web address]/[facility] Blood specimen (specimen) 02/24/2018 5:27 AM EDT 02/24/2018 5:43 AM EDT Narrative Resulting Agency Comment Spec In Lab Chavez Dorantes MD CHEMISTRY ORDERABLES Performing Organization Address [facility] de Phone Number [facility] [place] [address] * Heparin (unfractionated) Level (02/24/2018 5:27 AM EDT) UF Heparin 0.33 IU/mL [facility] Comment: Guidelines for therapeutic unfractionated heparin levels are summarized below. Heparin (Anti-Xa) levels should be determined in a plasma sample that has been drawn 6 hours after a dose change i.e., steady-state has been reached. DRUG ?Dosing Schedule ? Target Peak Steady-State ?Heparin (Anti-Xa) Levels (Units/mL) Unfractionated ?Continuous infusion ?0.3-0.7 Heparin ?0.3-0.6 for some neurology indications Blood specimen (specimen) 02/24/2018 5:27 AM EDT 02/24/2018 5:44 AM EDT Narrative Resulting Agency Comment Spec In Lab Joel Leggett MD HEMATOLOGY ORDERAB LES Performing Organization Address [facility] Co de Phone Number [facility] [place] [address] * Heparin (unfractionated) Level (02/23/2018 12:00 PM EDT) [facility] UF Heparin 0.34 IU/mL [facility] Comment: Guidelines for therapeutic unfractionated heparin levels are summarized below. Heparin (Anti-Xa) levels should be determined in a plasma sample that has been drawn 6 hours after a dose change i.e., steady-state has been reached. DRUG ?Dosing Schedule ? Target Peak Steady-State ?Heparin (Anti-Xa) Levels (Units/mL) Unfractionated ?Continuous infusion ?0.3-0.7 Heparin ?0.3-0.6 for some neurology indications Blood specimen (specimen) 02/23/2018 12:00 PM EDT 02/23/2018 12:26 PM EDT Narrative Resulting Agency Comment Spec In Lab Joel Leggett MD HEMATOLOGY ORDERAB LES Performing Organization Address [facility]/State/[facility] Co de Phone Number [facility] [place] [address] * ECHO COMPLETE W CONTRAST (02/23/2018 11:23 AM EDT) EF 63 HEARTLAB SYSTEM Anatomical Region Laterality Modality Other 02/23/2018 Narrative 02/23/2018 11:37 AM EDT Procedure: ?Transthoracic Echocardiogram Patient: ?DORIS KHALIL I ? (Age): 1940(77y) Med Rec#: ? [id number] ?Sex: ?F ? Site Loc: ? [facility] ?Ht / Wt: ??158(cm)/61(kg) Pt. Loc: ?[facility] ? BSA: ?1.62 Study Date: ?? 02/23/2018 ?Pt. Type: Inpatient Tape: ? Referring: MIREYA Reading: Ramakrishna Toure ([id number]) Stripper Color: Brayden Gomez Diagnosis: *Chest pain, unspecified (R07.9) Rhythm: ? Sinus BP: ? 140/83 SUMMARY: 1. Technically limited 2. There is normal global left ventricular systolic function. The quantitative left ventricular ejection fraction by biplane Lund's method is 63%. ??The ??apical septal, apical anterior, apical lateral, and apical inferior wall segments are akinetic (score 3). 3. Right ventricular chamber size, wall thickness, and systolic function are within normal limits. 4. The left atrium is mildly dilated.35 ml/m2. ??Other chamber and aortic dimensions are normal. ?? 5. No significant valvular disease. ?? 6. The pericardium appears normal and there is no evidence of a pericardial effusion. ??With contrast, no definite LV thrombus is identified. ??No prior study to compare to. ??In the right clinical setting, and if no significant coronary disease, the wall motion could be consistent with stress induced cardiomyopathy. ?? Findings ? : Study Quality: ? Technically limited Left Ventricle: ? The left ventricular chamber size is normal. ?Left ventricular wall thickness is normal. ?There is normal global left ventricular systolic function. ?The quantitative left ventricular ejection fraction by biplane Lund's method is 63%. ??The visually estimated EF ??55-60% ?There are left ventricular segmental wall motion abnormalities present, as shown in the diagram below. ?The left ventricular diastolic filling pattern is consistent with impaired LV relaxation. ?Doppler assessment is consistent with normal left sided filling pressure. ?The ??apical septal, apical anterior, apical lateral, and ??apical inferior wall segments are akinetic (score 3). ?Overall wallmotion score index is ??1.50 Left Atrium: ? The left atrium is mildly dilated.35 ml/m2 Right Ventricle: ? Right ventricular chamber size, wall thickness, and systolic function are within normal limits. Right Atrium: ? The right atrium appears normal. Aortic Valve: ? The aortic valve is tricuspid. ?The aortic valve leaflets are mildly thickened. ?There is no evidence of aortic valve stenosis. ?There is a trace of aortic regurgitation present. Mitral Valve: ? The mitral valve leaflets are mildly thickened. ?There is trace mitral regurgitation present. Tricuspid Valve: ? The tricuspid valve appears normal in structure and function. ?There is trace tricuspid regurgitation present. Pulmonic Valve: ? The pulmonic valve is not well visualized. Pericardium: ? The pericardium appears normal and there is no evidence of a pericardial effusion. Aorta: ? The aortic root is normal in size. ?The ascending aorta was not well visualized. Pulmonary Artery: ? The main pulmonary artery appears normal. Venous: ? The inferior vena cava is poorly visualized. Misc: ? See remainder of report for additional findings. ?Two-dimensional echo, spectral Doppler and color Doppler performed. Chambers 2D ?Value ?Units (Range) ? IVSd (2D) ? 1.2 ?cm ? LVPWd (2D) ?0.7 ?cm ? IVS:LVPW ratio (2D) 1.7 ?ratio ? RWT (2D) ?0.4 ?ratio ? RWT PW (2D) ? 0.3 ?ratio ? LVIDd (2D) ?4.6 ?cm ? LVIDs (2D) ?2.9 ?cm ? LVIDd (2D) index ?2.8 ?cm/m2 ? LVIDs (2D) index ?1.8 ?cm/m2 ? LV FS (2D) ?37 ? % ? EF Teichholz (2D) ?? 67 ? % ? Ao root diameter (2D2.6 ?cm (2.1 - 3.6) ? Volumes/Mass ?Value ?Units (Range) ? LA ESV BP (A/L) inde34.5 ? ml/m2 ? LV ESV SP 4CH (MOD) 43.4 ? ml ? LV ESV SP 2CH (MOD) 30.6 ? ml ? LV EDV BP ? 102 ?ml ? LV ESV BP ? 37.5 ? ml ? LV EDV BP index ? 63 ? ml/m2 ? LV ESV BP index ? 23.2 ? ml/m2 ? BP EF (MOD) ? 63 ? % ? LV mass (2D) ?149.8 ?g ? LV mass (2D) index ??92.5 ? g/m2 ? Diastolic/Systolic Function ?Value ?Units (Range) ? MV E-wave Vmax ?0.6 ?m/sec ? MV deceleration [id number] ?msec ? MV A-wave Vmax ?1.1 ?m/sec ? MV E:A ratio ?0.5 ?ratio ? LV septal e' Vmax ?? 0 ?m/sec ? LV lateral e' Vmax ??0.1 ?m/sec ? LV average e' Vmax ??0 ?m/sec ? LV E:e' septal ratio14.1 ? ratio ? LV E:e' lateral rati11.3 ? ratio ? LV average E:e' rati14.1 ? ratio ? Tricuspid Valve ?Value ?Units (Range) ? TR Vmax ? 2.3 ?m/sec ? TR peak gradient ?21.9 ? mmHg ? Wall Motion: Segment Name ?Rest ? Base-Anteroseptal ?? Normal ? Base-Anterior ? Normal ? Base-Anterolateral ??Normal ? Base-Posterolateral Normal ? Base-Inferior ? Normal ? Base-Inferoseptal ?? Normal ? Mid-Anteroseptal ?Normal ? Mid-Anterior ?Normal ? Mid-Anterolateral ?? Normal ? Mid-Posterolateral ??Normal ? Mid-Inferior ?Normal ? Mid-Inferoseptal ?Normal ? [place]-Septal ? Akinetic ? [place]-Anterior ? Akinetic ? [place]-Lateral ?Akinetic ? [place]-Inferior ? Akinetic ? [place]-Tip ?Akinetic ? This report has been electronically signed by: Ramakrishna Toure MD ? 02/23/2018 11:37:21 Images reviewed and interpretation verified [facility] Cardiac Ultrasound Laboratory Procedure Note Ramakrishna Toure MD - 02/23/2018 Procedure: Transthoracic Echocardiogram Patient: DORIS KHALIL I (Age): 1940(77y) Med Rec#: [id number] Sex: F Site Loc: [facility] Ht / Wt: 158(cm)/61(kg) Pt. Loc: CCU BSA: 1.62 Study Date: 02/23/2018 Pt. Type: Inpatient Tape: Referring: MIREYA Reading: Ramakrishna Toure ([id number]) Stripper Color: Brayden Gomez Diagnosis: *Chest pain, unspecified (R07.9) Rhythm: Sinus BP: 140/83 SUMMARY: 1. Technically limited 2. There is normal global left ventricular systolic function. The quantitative left ventricular ejection fraction by biplane Lund's method is 63%. The apical septal, apical anterior, apical lateral, and apical inferior wall segments are akinetic (score 3). 3. Right ventricular chamber size, wall thickness, and systolic function are within normal limits. 4. The left atrium is mildly dilated.35 ml/m2. Other chamber and aortic dimensions are normal. 5. No significant valvular disease. 6. The pericardium appears normal and there is no evidence of a pericardial effusion. With contrast, no definite LV thrombus is identified. No prior study to compare to. In the right clinical setting, and if no significant coronary disease, the wall motion could be consistent with stress induced cardiomyopathy. Findings : Study Quality: Technically limited Left Ventricle: The left ventricular chamber size is normal. Left ventricular wall thickness is normal. There is normal global left ventricular systolic function. The quantitative left ventricular ejection fraction by biplane Lund's method is 63%. The visually estimated EF 55-60% There are left ventricular segmental wall motion abnormalities present, as shown in the diagram below. The left ventricular diastolic filling pattern is consistent with impaired LV relaxation. Doppler assessment is consistent with normal left sided filling pressure. The apical septal, apical anterior, apical lateral, and apical inferior wall segments are akinetic (score 3). Overall wallmotion score index is 1.50 Left Atrium: The left atrium is mildly dilated.35 ml/m2 Right Ventricle: Right ventricular chamber size, wall thickness, and systolic function are within normal limits. Right Atrium: The right atrium appears normal. Aortic Valve: The aortic valve is tricuspid. The aortic valve leaflets are mildly thickened. There is no evidence of aortic valve stenosis. There is a trace of aortic regurgitation present. Mitral Valve: The mitral valve leaflets are mildly thickened. There is trace mitral regurgitation present. Tricuspid Valve: The tricuspid valve appears normal in structure and function. There is trace tricuspid regurgitation present. Pulmonic Valve: The pulmonic valve is not well visualized. Pericardium: The pericardium appears normal and there is no evidence of a pericardial effusion. Aorta: The aortic root is normal in size. The ascending aorta was not well visualized. Pulmonary Artery: The main pulmonary artery appears normal. Venous: The inferior vena cava is poorly visualized. Misc: See remainder of report for additional findings. Two-dimensional echo, spectral Doppler and color Doppler performed. Chambers 2D Value Units (Range) IVSd (2D) 1.2 cm LVPWd (2D) 0.7 cm IVS:LVPW ratio (2D) 1.7 ratio RWT (2D) 0.4 ratio RWT PW (2D) 0.3 ratio LVIDd (2D) 4.6 cm LVIDs (2D) 2.9 cm LVIDd (2D) index 2.8 cm/m2 LVIDs (2D) index 1.8 cm/m2 LV FS (2D) 37 % EF Teichholz (2D) 67 % Ao root diameter (2D2.6 cm (2.1 - 3.6) Volumes/Mass Value Units (Range) LA ESV BP (A/L) inde34.5 ml/m2 LV ESV SP 4CH (MOD) 43.4 ml LV ESV SP 2CH (MOD) 30.6 ml LV EDV BP 102 ml LV ESV BP 37.5 ml LV EDV BP index 63 ml/m2 LV ESV BP index 23.2 ml/m2 BP EF (MOD) 63 % LV mass (2D) 149.8 g LV mass (2D) index 92.5 g/m2 Diastolic/Systolic Function Value Units (Range) MV E-wave Vmax 0.6 m/sec MV deceleration [id number] msec MV A-wave Vmax 1.1 m/sec MV E:A ratio 0.5 ratio LV septal e' Vmax 0 m/sec LV lateral e' Vmax 0.1 m/sec LV average e' Vmax 0 m/sec LV E:e' septal ratio14.1 ratio LV E:e' lateral rati11.3 ratio LV average E:e' rati14.1 ratio Tricuspid Valve Value Units (Range) TR Vmax 2.3 m/sec TR peak gradient 21.9 mmHg Wall Motion: Segment Name Rest Base-Anteroseptal Normal Base-Anterior Normal Base-Anterolateral Normal Base-Posterolateral Normal Base-Inferior Normal Base-Inferoseptal Normal Mid-Anteroseptal Normal Mid-Anterior Normal Mid-Anterolateral Normal Mid-Posterolateral Normal Mid-Inferior Normal Mid-Inferoseptal Normal [place]-Septal Akinetic [place]-Anterior Akinetic [place]-Lateral Akinetic [place]-Inferior Akinetic [place]-Tip Akinetic This report has been electronically signed by: Ramakrishna Toure MD 02/23/2018 11:37:21 Images reviewed and interpretation verified [facility] Cardiac Ultrasound Laboratory Chavez Dorantes MD ECHO ORDERABLES * EKG 12 Lead (02/23/2018 7:22 AM EDT) Ventricular rate 64 BPM MUSE SYSTEM Atrial Rate 64 BPM MUSE SYSTEM P-R Interval 148 ms MUSE SYSTEM QRS Duration 82 ms MUSE SYSTEM Q-T Interval 432 ms MUSE SYSTEM QTC Calculated (Bezet) 445 ms MUSE SYSTEM Calculated P Webb 77 degrees MUSE SYSTEM Calculated R Webb 0 degrees MUSE SYSTEM Calculated T Webb -23 degrees MUSE SYSTEM INTERPRETATION Normal sinus rhythm Inferior infarct , age undetermined ST elevation consider inferolateral injury or acute infarct Abnormal ECG When compared with ECG of 22-FEB-2018 17:06, (unconfirmed) T wave inversion more evident in Inferior leads T wave inversion now evident in Anterolateral leads Confirmed by fellow MD Petar, Carson ([id number]) on 02/23/2018 10:21:51 AM Confirmed by MD Ganesh, Crispin ([id number]) on 02/23/2018 5:01:37 PM MUSE SYSTEM 02/23/2018 7:22 AM EDT 02/23/2018 5:01 PM EDT Chavez Dorantes MD ECG ORDERABLES MUSE SYSTEM * Scan, Peripheral Blood (02/23/2018 6:00 AM EDT) Plat estimate Normal [facility] RBC Morphology Normal [facility] Blood specimen (specimen) 02/23/2018 6:00 AM EDT 02/23/2018 6:10 AM EDT Narrative Resulting Agency Comment Spec In Lab Angel Machado MD HEMATOLOGY ORDERABLE S [facility] [place] [address] * Heparin (unfractionated) Level (02/23/2018 6:00 AM EDT) [facility] UF Heparin 0.40 IU/mL [facility] Comment: Guidelines for therapeutic unfractionated heparin levels are summarized below. Heparin (Anti-Xa) levels should be determined in a plasma sample that has been drawn 6 hours after a dose change i.e., steady-state has been reached. DRUG ?Dosing Schedule ? Target Peak Steady-State ?Heparin (Anti-Xa) Levels (Units/mL) Unfractionated ?Continuous infusion ?0.3-0.7 Heparin ?0.3-0.6 for some neurology indications Blood specimen (specimen) 02/23/2018 6:00 AM EDT 02/23/2018 6:10 AM EDT Narrative Resulting Agency Comment Spec In Lab Chavez Dorantes MD HEMATOLOGY ORDERABLE S Performing Organization Address [facility] Co de Phone Number [facility] [place] [address] * Differential, Automated (02/23/2018 6:00 AM EDT) [facility] Neutrophil % 62.8 % [facility] Neutrophil Absolute 4.32 1.70 - 6.10 x10(3)/[facility] Lymph % 27.5 % [facility] Lymphocytes Abs 1.9 0.9 - 3.2 x10(3)/[facility] Monocyte % 9.3 % [facility] Monocyte Abs 0.6 0.3 - 0.9 x10(3)/[facility] Eos % 0.0 % [facility] Eosinophils Abs 0.0 0.0 - 0.4 x10(3)/[facility] Basophil % 0.1 % [facility] Baso Absolute 0.0 0.0 - 0.1 x10(3)/[facility] Immature Gran % 0.30 % [facility] Comment: Immature granulocytes(IG's)percentage and absolute count will include metamyelocytes, myelocytes, and promyelocytes. Blood smears from CBCs yielding IG's will be scanned manually for concordance. If this scan disagrees with the automated IG or if promyelocytes are noted, a manual differential will be performed. Immature Gran Absolute 0.02 0.00 - 0.04 x10(3)/[facility] Blood specimen (specimen) 02/23/2018 6:00 AM EDT 02/23/2018 6:10 AM EDT Narrative Resulting Agency Comment Spec In Lab Angel Machado MD HEMATOLOGY ORDERABLE S Performing Organization Address City/State/[facility] Co de Phone Number [facility] [place] [address] * Hemogram (02/23/2018 6:00 AM EDT) White Blood Cell 6.9 4.0 - 9.5 x10(3)/[facility] Red Blood Cell 4.46 4.00 - 5.21 x10(6)/[facility] Hemoglobin 12.7 11.7 - 15.5 gm/dL [facility] Hematocrit 38.7 35.7 - 45.8 % [facility] Mean Cell Volume 86.8 82.6 - 94.4 fL [facility] Mean Cell Hemoglobin 28.5 27.1 - 32.0 pg [facility] Mean Cell Hemoglobin Concentration 32.8 31.7 - 35.0 gm/dL [facility] Platelet 237 145 - 357 x10(3)/[facility] RDW Standard Deviation 44.0 37.0 - 46.0 fL [facility] RDW coefficient of variation 13.7 11.5 - 14.1 % [facility] Mean Platelet Volume 10.1 7.6 - 12.9 fL [facility] NRBC% auto 0.0 % [facility] NRBC Absolute 0.000 0.000 - 0.000 x10(3)/[facility] Blood specimen (specimen) 02/23/2018 6:00 AM EDT 02/23/2018 6:10 AM EDT Narrative Resulting Agency Comment Spec In Lab Angel Machado MD HEMATOLOGY ORDERABLE S Performing Organization Address City/[facility]/ZIP Co de Phone Number [facility] [place] [address] * Magnesium (02/23/2018 6:00 AM EDT) Magnesium 0.84 0.69 - 1.07 mmol/L [facility] Blood specimen (specimen) 02/23/2018 6:00 AM EDT 02/23/2018 6:10 AM EDT Narrative Resulting Agency Comment Spec In Lab Chavez Dorantes MD CHEMISTRY ORDERABLES Performing Organization Address City/[facility]/ZIP Co de Phone Number [facility] [place] [address] * (ABNORMAL) Basic Metabolic Panel (non-fasting) (02/23/2018 6:00 AM EDT) Glucose 105 65 - 199 mg/dL [facility] Comment:Diabetes: >=200 mg/d L plus symptoms Blood Urea Nitrogen 12 8 - 18 mg/dL [facility] Creatinine 0.48(L) 0.70 - 1.20 mg/dL [facility] Sodium 136 135 - 145 mmol/L [facility] Potassium 4.2 3.5 - 5.0 mmol/L [facility] Comment: Please note: ??Patients with WBC >100,000 may have falsely elevated Potassium levels. ??For accurate Potassium quantification in these patients send serum separator tube (gold top) for subsequent determinations. ??Contact the Clinical Chemistry Laboratory if there are any questions. Chloride 97(L) 98 - 107 mmol/L [facility] Carbon Dioxide 25 22 - 31 mmol/L [facility] Anion Gap 14 5 - 15 mmol/L [facility] Calcium 8.8 8.5 - 10.5 mg/dL [facility] Est Glomerular Filtration Rate >60 >=60 [facility] Comment: The eGFR was calculated using the CKD-EPI equation. As with all creatinine based estimates of kidney function, eGFR values calculated with the CKD-EPI equation are not accurate in patients with acute kidney failure, extremes of body mass or the acutely ill. [email or web address] eGFR 111 >=60 mL/min/1. 73 m?? [facility] Comment: The eGFR was calculated using the CKD-EPI equation. As with all creatinine based estimates of kidney function, eGFR values calculated with the CKD-EPI equation are not accurate in patients with acute kidney failure, extremes of body mass or the acutely ill. [email or web address] Blood specimen (specimen) 02/23/2018 6:00 AM EDT 02/23/2018 6:10 AM EDT Narrative Resulting Agency Comment Spec In Lab Chavez Dorantes MD CHEMISTRY ORDERABLES [facility] [place] [address] * (ABNORMAL) Cardiac Enzymes (LEB/CGP) (02/23/2018 6:00 AM EDT) Troponin-T 0.29(H) 0.00 - 0.00 ng/mL [facility] Comment: The 99th percentile for Troponin T is less than 0.01 ng/mL, any detectable cTnT concentration using this assay should be considered elevated. According to the third universal definition of myocardial infarction the following criteria with a clinical presentation consistent with acute myocardial ischemia meets the diagnosis for a myocardial infarction ([place]). Detection of a rise and/or fall of cTnT, with at least one value greater than the 99th percentile (> or = 0.01) and with at least one of the following ?? Symptoms of ischemia ?? New or presumed new significant OF-uzwqqxo-D wave (ST-T) changes or new left bundle branch block (LBBB) ?? Development of pathologic Q waves in the ECG ?? Imaging evidence of new loss of viable myocardium or new regional wall motion abnormality ?? Identification of an intracoronary thrombus by angiography or autopsy Samples for cTnT testing should be obtained serially upon first assessment and again 3 to 6 hours later. If the clinical suspicion is high and previous samples have been negative an additional sample may be indicated. Reference: Third Capron Definition of Myocardial Infarction. Journal of the [place] [employer] 2012;60:1581-98 Creatine Kinase 143 0 - 160 unit/L [facility] Blood specimen (specimen) 02/23/2018 6:00 AM EDT 02/23/2018 6:11 AM EDT Narrative Resulting Agency Comment Spec In Lab Chavez Dorantes MD CHEMISTRY ORDERABLES Performing Organization Address City/State/[facility] Co de Phone Number [facility] [place] [address] * XR Chest PA & Lateral (Generic) (02/23/2018 5:37 AM EDT) Anatomical Region Laterality Modality Chest N/A Digital Radiogra phy Impressions 02/23/2018 5:48 AM EDT No acute cardiopulmonary process is identified. Narrative 02/23/2018 5:48 AM EDT EXAMINATION: XR CHEST PA AND LATERAL (GENERIC) CLINICAL HISTORY: 77 yo F with COPD admitted for possible COPD exacerbation with NSTEMI. Evaluate for evidence of infection and/or volume overload. TECHNIQUE: PA and lateral views. COMPARISON: February 21, 2018. FINDINGS: No focal consolidation, pleural effusion or pulmonary edema is identified. The lungs are again hyperinflated. There is unchanged linear scarring in the right lung base. An apparent nodular opacity in the right lung apex likely reflects overlapping vessels as it was not seen previously. Old bilateral rib fractures are again noted. Procedure Note Georges Wan MD - 02/23/2018 EXAMINATION: XR CHEST PA AND LATERAL (GENERIC) CLINICAL HISTORY: 77 yo F with COPD admitted for possible COPDexacerbation with NSTEMI. Evaluate for evidence of infection and/or volume overload. TECHNIQUE: PA and lateral views. COMPARISON: February 21, 2018. FINDINGS: No focal consolidation, pleural effusion or pulmonary edema is identified.The lungs are again hyperinflated. There is unchanged linear scarring in theright lung base. An apparent nodular opacity in the right lung apex likelyreflects overlapping vessels as it was not seen previously. Old bilateral ribfractures are again noted. IMPRESSION No acute cardiopulmonary process is identified. Chavez Dorantes MD IMG DX ORDERABLES * Heparin (unfractionated) Level (02/22/2018 11:58 PM EDT) UF Heparin 0.27 IU/mL [facility] Comment: Guidelines for therapeutic unfractionated heparin levels are summarized below. Heparin (Anti-Xa) levels should be determined in a plasma sample that has been drawn 6 hours after a dose change i.e., steady-state has been reached. DRUG ?Dosing Schedule ? Target Peak Steady-State ?Heparin (Anti-Xa) Levels (Units/mL) Unfractionated ?Continuous infusion ?0.3-0.7 Heparin ?0.3-0.6 for some neurology indications Blood specimen (specimen) 02/22/2018 11:58 PM EDT 02/23/2018 12:06 AM EDT Narrative Resulting Agency Comment Spec In Lab Chavez Dorantes MD HEMATOLOGY ORDERABLE S [facility] [place] [address] * (ABNORMAL) Cardiac Enzymes (LEB/CGP) (02/22/2018 11:58 PM EDT) Troponin-T 0.34(H) 0.00 - 0.00 ng/mL [facility] Comment: The 99th percentile for Troponin T is less than 0.01 ng/mL, any detectable cTnT concentration using this assay should be considered elevated. According to the third universal definition of myocardial infarction the following criteria with a clinical presentation consistent with acute myocardial ischemia meets the diagnosis for a myocardial infarction ([place]). Detection of a rise and/or fall of cTnT, with at least one value greater than the 99th percentile (> or = 0.01) and with at least one of the following ?? Symptoms of ischemia ?? New or presumed new significant TO-agnrdnn-K wave (ST-T) changes or new left bundle branch block (LBBB) ?? Development of pathologic Q waves in the ECG ?? Imaging evidence of new loss of viable myocardium or new regional wall motion abnormality ?? Identification of an intracoronary thrombus by angiography or autopsy Samples for cTnT testing should be obtained serially upon first assessment and again 3 to 6 hours later. If the clinical suspicion is high and previous samples have been negative an additional sample may be indicated. Reference: Third Capron Definition of Myocardial Infarction. Journal of the [place] [employer] 2012;60:1581-98 Creatine Kinase 164(H) 0 - 160 unit/L [facility] Blood specimen (specimen) 02/22/2018 11:58 PM EDT 02/23/2018 12:06 AM EDT Narrative Resulting Agency Comment Spec In Lab Chavez Dorantes MD CHEMISTRY ORDERABLES Performing Organization Address City/[facility]/ZIP Co de Phone Number [facility] [place] [address] * Urine Hold (02/22/2018 5:54 PM EDT) Hold, Urine Sample in lab. [facility] Urine specimen (specimen) Urine / Unknown 02/22/2018 5:54 PM EDT 02/22/2018 6:09 PM EDT Angel Machado MD URINE ORDERABLES Performing Organization Address [facility] Co de Phone Number [facility] [place] [address] * (ABNORMAL) Urinalysis with reflex Culture (02/22/2018 5:54 PM EDT) Glucose, Urine Dipstick Negative Negative mg/dL [facility] Protein, Urine Dipstick Negative Negative mg/dL [facility] Bilirubin, Urine Dipstick Negative Negative mg/dL [facility] Comment: Clinical correlation required for positive Urine Bilirubin results as false positive may occur with some drugs and drug related products. If a false positive is suspected a serum total bilirubin should be considered if clinically indicated. Urobilinogen, Urine Dipstick Normal Normal mg/dL [facility] pH, Urn (dipstick) 7.0 5.0 - 8.0 [facility] Blood, Urine Dipstick Negative Negative mg/dL [facility] Ketone, Urine Dipstick 20(A) Negative mg/dL [facility] Nitrite, Urine Dipstick Negative Negative [facility] Leukocytes, Urine Dipstick Negative Negative [facility] Appearance, Urine Dipstick Clear Clear [facility] Specific [place] Urine Automated 1.010 1.002 - 1.030 [facility] Color, Urine Dipstick Straw Yellow [facility] Reflex to Culture No [facility] Urine specimen obtained by clean catch procedure (specimen) 02/22/2018 5:54 PM EDT 02/22/2018 6:07 PM EDT Narrative Resulting Agency Comment Spec In Lab Chavez Dorantes MD URINE ORDERABLES [facility] [place] [address] * (ABNORMAL) Differential, Automated (02/22/2018 5:45 PM EDT) Neutrophil % 69.7 % [facility] Neutrophil Absolute 2.37 1.70 - 6.10 x10(3)/mc L [facility] Lymph % 27.1 % [facility] Lymphocytes Abs 0.9 0.9 - 3.2 x10(3)/mc L [facility] Monocyte % 2.9 % [facility] Monocyte Abs 0.1(L) 0.3 - 0.9 x10(3)/mc L [facility] Eos % 0.0 % [facility] Eosinophils Abs 0.0 0.0 - 0.4 x10(3)/mc L [facility] Basophil % 0.0 % [facility] Baso Absolute 0.0 0.0 - 0.1 x10(3)/mc L [facility] Immature Gran % 0.30 % [facility] Comment: Immature granulocytes(IG's)percentage and absolute count will include metamyelocytes, myelocytes, and promyelocytes. Blood smears from CBCs yielding IG's will be scanned manually for concordance. If this scan disagrees with the automated IG or if promyelocytes are noted, a manual differential will be performed. Immature Gran Absolute 0.01 0.00 - 0.04 x10(3)/mc L [facility] Blood specimen (specimen) 02/22/2018 5:45 PM EDT 02/22/2018 5:56 PM EDT Narrative Resulting Agency Comment Spec In Lab Angel Machado MD HEMATOLOGY ORDERABLE S [facility] [place] [address] * (ABNORMAL) Hemogram (02/22/2018 5:45 PM EDT) White Blood Cell 3.4(L) 4.0 - 9.5 x10(3)/mc L [facility] Red Blood Cell 4.60 4.00 - 5.21 x10(6)/mc L [facility] Hemoglobin 13.2 11.7 - 15.5 gm/dL [facility] Hematocrit 40.1 35.7 - 45.8 % [facility] Mean Cell Volume 87.2 82.6 - 94.4 fL [facility] Mean Cell Hemoglobin 28.7 27.1 - 32.0 pg [facility] Mean Cell Hemoglobin Concentration 32.9 31.7 - 35.0 gm/dL [facility] Platelet 226 145 - 357 x10(3)/mc L [facility] RDW Standard Deviation 43.6 37.0 - 46.0 [facility] RDW coefficient of variation 13.8 11.5 - 14.1 % [facility] Mean Platelet Volume 10.3 7.6 - 12.9 [facility] NRBC% auto 0.0 % [facility] NRBC Absolute 0.000 0.000 - 0.000 x10(3)/mc L [facility] Blood specimen (specimen) 02/22/2018 5:45 PM EDT 02/22/2018 5:56 PM EDT Narrative Resulting Agency Comment Spec In Lab Angel Machado MD HEMATOLOGY ORDERABLE S [facility] [place] [address] * Heparin (unfractionated) Level (02/22/2018 5:45 PM EDT) Pathologist [facility] UF Heparin 0.11 IU/mL [facility] Comment: Guidelines for therapeutic unfractionated heparin levels are summarized below. Heparin (Anti-Xa) levels should be determined in a plasma sample that has been drawn 6 hours after a dose change i.e., steady-state has been reached. DRUG ?Dosing Schedule ? Target Peak Steady-State ?Heparin (Anti-Xa) Levels (Units/mL) Unfractionated ?Continuous infusion ?0.3-0.7 Heparin ?0.3-0.6 for some neurology indications Blood specimen (specimen) 02/22/2018 5:45 PM EDT 02/22/2018 5:57 PM EDT Narrative Resulting Agency Comment Spec In Lab Chavez Dorantes MD HEMATOLOGY ORDERABLE S [facility] [place] [address] * (ABNORMAL) Cardiac Enzymes (LEB/CGP) (02/22/2018 5:45 PM EDT) Pathologist [facility] Troponin-T 0.20(H) 0.00 - 0.00 ng/mL [facility] Comment: The 99th percentile for Troponin T is less than 0.01 ng/mL, any detectable cTnT concentration using this assay should be considered elevated. According to the third universal definition of myocardial infarction the following criteria with a clinical presentation consistent with acute myocardial ischemia meets the diagnosis for a myocardial infarction ([place]). Detection of a rise and/or fall of cTnT, with at least one value greater than the 99th percentile (> or = 0.01) and with at least one of the following ?? Symptoms of ischemia ?? New or presumed new significant SW-ambpdfp-Y wave (ST-T) changes or new left bundle branch block (LBBB) ?? Development of pathologic Q waves in the ECG ?? Imaging evidence of new loss of viable myocardium or new regional wall motion abnormality ?? Identification of an intracoronary thrombus by angiography or autopsy Samples for cTnT testing should be obtained serially upon first assessment and again 3 to 6 hours later. If the clinical suspicion is high and previous samples have been negative an additional sample may be indicated. Reference: Third Capron Definition of Myocardial Infarction. Journal of the [place] 2012;60:1581-98 Creatine Kinase 123 0 - 160 unit/L [facility] Blood specimen (specimen) 02/22/2018 5:45 PM EDT 02/22/2018 5:56 PM EDT Narrative Resulting Agency Comment Spec In Lab Chavez Dorantes MD CHEMISTRY ORDERABLES Performing Organization Address [facility] Co de Phone Number [facility] [place] [place] [address] * APTT (02/22/2018 5:45 PM EDT) Partial Thromboplastin Time 30 25 - 37 sec [facility] Comment: The PTT is NOT appropriate for heparin monitoring. Use the Anti-Xa level for heparin monitoring (HEP UFH) or LMWH monitoring (HEP LMW). A PTT less than 37 seconds generally indicates adequate hemostasis. Blood specimen (specimen) 02/22/2018 5:45 PM EDT 02/22/2018 5:57 PM EDT Narrative Resulting Agency Comment Spec In Lab Chavez Dorantes MD HEMATOLOGY ORDERABLE S Performing Organization Address [facility] Co de Phone Number [facility] [place] [address] * Prothrombin Time (02/22/2018 5:45 PM EDT) Prothrombin Time 11.6 9.4 - 12.5 sec [facility] International Normalization Ratio 1.0 [facility] Comment: An INR <2.0 indicates adequate procoagulant activity for hemostasis in most patients without underlying bleeding disorders, though the INR may not adequately reflect hemostatic capacity in patients with liver disease and synthetic impairment. The recommended target INR range for therapeutic anticoagulation is 2.0 ? 3.0 for most applications, though lower and higher ranges may be appropriate depending on clinical circumstances. Blood specimen (specimen) 02/22/2018 5:45 PM EDT 02/22/2018 5:57 PM EDT Narrative Resulting Agency Comment Spec In Lab Chavez Dorantes MD HEMATOLOGY ORDERABLE S Performing Organization Address [facility]/ZIP Co de Phone Number [facility] [place] [address] * Magnesium (02/22/2018 5:45 PM EDT) Magnesium 0.86 0.69 - 1.07 mmol/L [facility] Blood specimen (specimen) 02/22/2018 5:45 PM EDT 02/22/2018 5:56 PM EDT Narrative Resulting Agency Comment Spec In Lab Chavez Dorantes MD CHEMISTRY ORDERABLES Performing Organization Address [facility] Co de Phone Number [facility] [place] [address] * (ABNORMAL) Basic Metabolic Panel (non-fasting) (02/22/2018 5:45 PM EDT) Glucose 139 65 - 199 mg/dL [facility] Comment:Diabetes: >=200 mg/d L plus symptoms Blood Urea Nitrogen 9 8 - 18 mg/dL [facility] Creatinine 0.44(L) 0.70 - 1.20 mg/dL [facility] Sodium 134(L) 135 - 145 mmol/L [facility] Potassium 4.4 3.5 - 5.0 mmol/L [facility] Comment: Please note: ??Patients with WBC >100,000 may have falsely elevated Potassium levels. ??For accurate Potassium quantification in these patients send serum separator tube (gold top) for subsequent determinations. ??Contact the Clinical Chemistry Laboratory if there are any questions. Chloride 95(L) 98 - 107 mmol/L [facility] Carbon Dioxide 25 22 - 31 mmol/L [facility] Anion Gap 14 5 - 15 mmol/L [facility] Calcium 9.0 8.5 - 10.5 mg/dL [facility] Est Glomerular Filtration Rate >60 >=60 [facility] Comment: The eGFR was calculated using the CKD-EPI equation. As with all creatinine based estimates of kidney function, eGFR values calculated with the CKD-EPI equation are not accurate in patients with acute kidney failure, extremes of body mass or the acutely ill. [email or web address] eGFR 114 >=60 mL/min/1. 73 m?? [facility] Comment: The eGFR was calculated using the CKD-EPI equation. As with all creatinine based estimates of kidney function, eGFR values calculated with the CKD-EPI equation are not accurate in patients with acute kidney failure, extremes of body mass or the acutely ill. [email or web address] Blood specimen (specimen) 02/22/2018 5:45 PM EDT 02/22/2018 5:56 PM EDT Narrative Resulting Agency Comment Spec In Lab Chavez Dorantes MD CHEMISTRY ORDERABLES [facility] [place] [address] * EKG 12 Lead (02/22/2018 5:06 PM EDT) Ventricular rate 68 BPM MUSE SYSTEM Atrial Rate 68 BPM MUSE SYSTEM P-R Interval 156 ms MUSE SYSTEM QRS Duration 80 ms MUSE SYSTEM Q-T Interval 446 ms MUSE SYSTEM QTC Calculated (Bezet) 474 ms MUSE SYSTEM Calculated P Webb 66 degrees MUSE SYSTEM Calculated R Webb 12 degrees MUSE SYSTEM Calculated T Webb 24 degrees MUSE SYSTEM INTERPRETATION Normal sinus rhythm Normal ECG When compared with ECG of 12-MAR-2010 15:53, Nonspecific T wave abnormality now evident in Lateral leads Confirmed by MD Ganesh, Crispin ([id number]) on 02/23/2018 4:45:36 PM MUSE SYSTEM 02/22/2018 5:06 PM EDT 02/23/2018 4:45 PM EDT Chavez Dorantes MD ECG ORDERABLES MUSE SYSTEM documented in this encounter Visit Diagnoses Diagnosis Stress-induced cardiomyopathy- Primary Takotsubo syndrome Chest pain, unspecified type Tobacco abuse Tobacco use disorder COPD with exacerbation Obstructive chronic bronchitis with exacerbation Hypertension Unspecified essential hypertension documented in this encounter Admitting Diagnoses Diagnosis NSTEMI (non-ST elevated myocardial infarction) Acute myocardial infarction, subendocardial infarction, episode of care unspecified documented in this encounter Administered Medications Inactive Administered Medications - up to 3 most recent administrations Medication Order MAR Action Action Date Dose Rate Site acetaminophen (TYLENOL) tablet 650 mg 650 mg, Oral, EVERY 6 HOURS, First dose on Thu02/22/18 at 1800, Until Discontinued, Maximum dose of acetaminophen is 4000 mg from all sources in 24 hours., Routine Given 02/26/2018 1:05 PM EDT 650 mg Given 02/25/2018 11:57 PM EDT 650 mg Given 02/25/2018 5:20 PM EDT 650 mg aspirin chewable tablet 81 mg 81 mg, Oral, DAILY, First dose on Thu02/23/18 at 0900, Until Discontinued, Routine Given 02/25/2018 8:44 AM EDT 81 mg Given 02/24/2018 8:54 AM EDT 81 mg Given 02/23/2018 8:40 AM EDT 81 mg aspirin EC tablet 81 mg 81 mg, Oral, DAILY, First dose on Thu02/27/18 at 0900, Until Discontinued, Routine atorvastatin (LIPITOR) tablet 40 mg 40 mg, Oral, EVERY EVENING, First dose on Thu02/22/18 at 1830, Until Discontinued, Routine Given 02/25/2018 5:20 PM EDT 40 mg Given 02/24/2018 4:36 PM EDT 40 mg Given 02/23/2018 5:21 PM EDT 40 mg citalopram (CeleXA) tablet 40 mg 40 mg, Oral, DAILY, First dose (after last modification) on Thu02/23/18 at 1200, Until Discontinued, Routine Given 02/26/2018 8:57 AM EDT 40 mg Given 02/25/2018 8:44 AM EDT 40 mg Given 02/24/2018 8:54 AM EDT 40 mg clopidogrel (PLAVIX) tablet 75 mg 75 mg, Oral, DAILY, First dose on Thu02/23/18 at 0900, Until Discontinued, Routine Given 02/25/2018 8:45 AM EDT 75 mg Given 02/24/2018 8:54 AM EDT 75 mg Given 02/23/2018 8:40 AM EDT 75 mg dextromethorphan-guaiFENesin (ROBITUSSIN) 10-100 mg/5 mL oral syrup 5 mL 5 mL, Oral, EVERY 4 HOURS PRN, Starting on Thu02/22/18 at 1706, Until Thu02/26/18 at 1648, Cough, Routine Given 02/26/2018 4:04 AM EDT 5 mLs Given 02/25/2018 8:43 PM EDT 5 mLs Given 02/24/2018 6:36 PM EDT 5 mLs diaZEPam (VALIUM) tablet 2.5 mg 2.5 mg, Oral, ONCE, 1 dose, On Thu02/25/18 at 1015, Routine Given 02/25/2018 12:34 PM EDT 2.5 mg fentaNYL (DURAGESIC) 50 mcg/hr patch 1 patch 1 patch, Transdermal, EVERY 72 HOURS, First dose on Thu02/24/18 at 1200, Until Discontinued, Place fentaNYL patch, Routine Patch Applied 02/24/2018 11:59 AM EDT 1 patch 11- Chest (Left) fentaNYL (DURAGESIC) 50 mcg/hr Patch Removal Transdermal, EVERY 72 HOURS, First dose on Thu02/24/18 at 1200, Until Discontinued, Remove fentaNYL 50 mcg/hr patch fentaNYL (DURAGESIC) 50 mcg/hr Patch Verification Transdermal, 2 TIMES DAILY, First dose on Thu02/24/18 at 2300, Until Discontinued, Verify fentaNYL 50 mcg/hr patch gabapentin (NEURONTIN) capsule 600 mg 600 mg, Oral, DAILY AT NOON, First dose (after last modification) on Thu02/23/18 at 1200, Until Discontinued, Routine Given 02/26/2018 1:05 PM EDT 600 mg Given 02/25/2018 12:25 PM EDT 600 mg Given 02/24/2018 12:47 PM EDT 600 mg gabapentin (NEURONTIN) capsule 900 mg 900 mg, Oral, NIGHTLY, First dose on Thu02/22/18 at 2100, Until Discontinued, Routine Given 02/25/2018 8:03 PM EDT 900 mg Given 02/24/2018 8:03 PM EDT 900 mg Given 02/23/2018 9:15 PM EDT 900 mg heparin (porcine) 25,000 unit/500 mL (50 unit/mL) infusion 1 dose, Starting on Thu02/22/18 at 1649, Until Thu02/22/18 at 1706, CARSON ALCALA: cabinet override heparin (Porcine) subcutaneous injection 5,000 Units 5,000 Units, Subcutaneous, EVERY 12 HOURS SCHEDULED (2 times per day), First dose on Thu02/24/18 at 2100, Until Discontinued, Routine Given 02/26/2018 8:58 AM EDT 5,000 Units Given 02/25/2018 8:05 PM EDT 5,000 Units Given 02/25/2018 8:43 AM EDT 5,000 Units heparin 25,000 units in dextrose 5% 500 mL infusion 0-5,000 Units/hr (0-100 mL/hr), Intravenous, CONTINUOUS, Starting on Thu02/22/18 at 1730, Until Thu02/24/18 at 1027, BEGIN infusion at 750 units per hr (12 units/kg/hr). MAX INITIAL infusion rate is 1,000 units/hr. Target Heparin UFH Level (anti-Xa activity) = 0.3 - 0.7 IU/mL Start adjustment schedule 6 hours after starting infusion. If Heparin UFH Level is: - less than 0.1 IU/mL, administer PRN bolus and increase rate by 250 units per hr (4 units/kg/hr) - 0.1 - 0.29 IU/mL, administer PRN bolus and increase rate by 100 units per hr (2 units/kg/hr) - 0.3 - 0.7 IU/mL, No Change - 0.71 - 0.85 IU/mL, decrease rate by 50 units per hr (1 units/kg/hr) - 0.86 - 1.05 IU/mL, stop infusion for 30 minutes, then decrease rate by 100 units per hr (2 units/kg/hr) - Greater than 1.05 IU/mL, stop infusion for 60 minutes, then decrease rate by 200 units per hour (3 units/kg/hr) Repeat Heparin UFH Level 6 hours after initiating heparin. Then 6 hours after each dose adjustment. When 2 consecutive Heparin UFH Level within target range of 0.3 - 0.7 IU/mL, change Heparin UFH Level to once every 24 hours with A.M. labs while on heparin. RN to order required Heparin UFH Level - Per Protocol, Routine, Indication: ACS (STEMI vs NSTEMI vs UA) New Bag 02/23/2018 9:43 PM EDT 850 Units/hr 17 mL/hr Rate/Dose Verify 02/23/2018 12:52 PM EDT 850 Units/hr 17 m L/hr Rate/Dose Change 02/23/2018 12:55 AM EDT 850 Units/hr 17 m L/hr ipratropium-albuterol (DUONEB) 0.5 mg-3 mg(2.5 mg base)/3 mL nebulizer solution 3 mL 3 mL, Nebulization, EVERY 4 HOURS PRN, Starting on Thu02/23/18 at 0737, Until Thu02/23/18 at 0748, Wheezing, Routine Given 02/23/2018 7:47 AM EDT 3 mLs ipratropium-albuterol (DUONEB) 0.5 mg-3 mg(2.5 mg base)/3 mL nebulizer solution 3 mL 3 mL, Nebulization, EVERY 4 HOURS WHILE AWAKE, First dose (after last modification) on Thu02/23/18 at 1000, Until Discontinued, Routine Given 02/24/2018 11:20 AM EDT 3 mLs Given 02/24/2018 5:27 AM EDT 3 mLs Given 02/23/2018 5:22 PM EDT 3 mLs ipratropium-albuterol (DUONEB) 0.5 mg-3 mg(2.5 mg base)/3 mL nebulizer solution 3 mL 3 mL, Nebulization, EVERY 4 HOURS PRN, Starting on Thu02/24/18 at 1300, Until Thu02/26/18 at 1331, Wheezing, Routine Given 02/24/2018 8:04 PM EDT 3 mLs ipratropium-albuterol (DUONEB) 0.5 mg-3 mg(2.5 mg base)/3 mL nebulizer solution 3 mL 3 mL, Nebulization, EVERY 6 HOURS, First dose (after last modification) on Thu02/26/18 at 1400, Until Discontinued, Routine Given 02/26/2018 1:32 PM EDT 3 mLs levofloxacin (LEVAQUIN) 750 mg in dextrose 5% 150 mL 750 mg, Intravenous, at 100 mL/hr, Administer over 90 Minutes, EVERY 24 HOURS, First dose on Thu02/23/18 at 0215, Until Discontinued, Routine, Indication for (Active or Suspected): Pneumonia (Community), Restricted Antibiotic: Please indicate the most appropriate choice: Off hour exemption for 2 doses (11PM - 7AM) [facility] 02/23/2018 6:01 AM EDT 750 mg 100 mL/hr levoFLOXacin (LEVAQUIN) tablet 500 mg 500 mg, Oral, DAILY, 3 doses, First dose on Thu02/24/18 at 0900, Last dose on Thu02/26/18 at 0900, Routine, Indication for (Active or Suspected): Pneumonia (Community), Restricted Antibiotic: Please indicate the most appropriate choice: ID Approval by Radha Bañuelos MD Given 02/26/2018 9:00 AM EDT 500 mg Given 02/25/2018 8:44 AM EDT 500 mg Given 02/24/2018 8:54 AM EDT 500 mg loperamide (IMODIUM) capsule 2 mg 2 mg, Oral, 4 TIMES DAILY PRN, Starting on Thu02/24/18 at 1046, Until Thu02/26/18 at 1648, Diarrhea, Do not exceed 16 mg/day., Routine Given 02/26/2018 1:08 PM EDT 2 mg Given 02/26/2018 9:05 AM EDT 2 mg Given 02/25/2018 5:57 PM EDT 2 mg metoprolol (LOPRESSOR) tablet 12.5 mg 12.5 mg, Oral, EVERY 6 HOURS SCHEDULED, First dose (after last modification) on Thu02/22/18 at 1800, Until Discontinued, Hold for HR <60 Hold for SBP <90 Hold for MAP <65, Routine Given 02/26/2018 1:05 PM EDT 12.5 mg Given 02/26/2018 5:20 AM EDT 12.5 mg Given 02/25/2018 11:57 PM EDT 12.5 mg nicotine (NICODERM CQ) 21 mg/24 hr patch 21 mg 21 mg (1 patch), Transdermal, DAILY, First dose on Thu02/23/18 at 1545, Until Discontinued, Routine Patch Applied 02/26/2018 8:57 AM EDT 21 mg 09- Arm Upper (Left) Patch Applied 02/25/2018 8:43 AM EDT 21 mg 04- Shoulder (Right) Patch Applied 02/24/2018 9:04 AM EDT 21 mg 03- Shoulder (Left) nicotine (NICODERM CQ) 21 mg/24 hr patch Patch Removal Transdermal, DAILY, First dose on Thu02/24/18 at 0900, Until Discontinued, Remove nicotine 21 mg/24 hr patch nicotine (NICODERM CQ) 21 mg/24 hr patch Patch Verification Transdermal, 2 TIMES DAILY, First dose on Thu02/24/18 at 0900, Until Discontinued, Verify nicotine 21 mg/24 hr patch nicotine polacrilex (NICORETTE) gum 2 mg 2 mg, Buccal, EVERY 2 HOURS PRN, Starting on Thu02/23/18 at 1515, Until Thu02/26/18 at 1648, Smoking cessation, Chew gum slowly. Do not swallow. Maximum of 48 mg/day., Routine Given 02/24/2018 12:04 PM EDT 2 mg Given 02/23/2018 4:48 PM EDT 2 mg perflutren protein-A microspheres (OPTISON) 0.22 mg/mL injection 2.5 mL 2.5 mL, Intravenous, ONCE PRN, 1 dose, Starting on Thu02/23/18 at 1124, Until Thu02/23/18 at 1100, Per Protocol, Routine Given 02/23/2018 11:00 AM EDT 2.5 mLs potassium chloride (K-DUR/KLOR-CON) extended release tablet 40 mEq 40 mEq, Oral, ONCE, 1 dose, On Thu02/24/18 at 0715, Routine Given 02/24/2018 8:54 AM EDT 40 mEq potassium chloride (K-DUR/KLOR-CON) extended release tablet 40 mEq 40 mEq, Oral, ONCE, 1 dose, On Thu02/25/18 at 1100, Routine Given 02/25/2018 12:26 PM EDT 40 mEq potassium chloride (K-DUR/KLOR-CON) extended release tablet 40 mEq 40 mEq, Oral, ONCE, 1 dose, On Thu02/26/18 at 0900, Routine Given 02/26/2018 8:58 AM EDT 40 mEq predniSONE (DELTASONE) tablet 40 mg 40 mg, Oral, DAILY, 4 doses, First dose on Thu02/23/18 at 0900, Last dose on Thu02/26/18 at 0900, Routine Given 02/26/2018 8:57 AM EDT 40 mg Given 02/25/2018 8:45 AM EDT 40 mg Given 02/24/2018 8:54 AM EDT 40 mg sodium chloride 0.9 % flush 5 mL 5 mL, Intravenous, 2 TIMES DAILY, First dose on Thu02/22/18 at 2100, Until Discontinued, Routine Given 02/26/2018 8:59 AM EDT 5 mLs Given 02/25/2018 8:11 PM EDT 5 mLs Given 02/25/2018 8:45 AM EDT 5 mLs sodium chloride 0.9% infusion 100 mL/hr, Intravenous, CONTINUOUS, Starting on Thu02/23/18 at 1000, Until Thu02/25/18 at 1515, Cath (Day of Procedure) New 02/23/2018 10:16 AM EDT 100 mL/hr 100 mL/hr sodium chloride 0.9% infusion 100 mL/hr, Intravenous, CONTINUOUS, Starting on Thu02/25/18 at 1430, Until [place] 02/25/18 at 1829, Recovery (Recovery-Hospital Unit) New Bag 02/25/2018 4:15 PM EDT 100 mL/hr 100 mL /hr traZODone (DESYREL) tablet 50 mg 50 mg, Oral, NIGHTLY, First dose on Thu02/24/18 at 2100, Until Discontinued, Routine Given 02/25/2018 8:03 PM EDT 50 mg Given 02/24/2018 8:03 PM EDT 50 mg documented in this encounter Active and Recently Administered Medications Times are shown in EDT. Scheduled Medication Order 02/24/2018 02/25/2018 02/26/2018 acetaminophen (TYLENOL) tablet 650 mg 650 mg, Oral, EVERY 6 HOURS, First dose on Thu02/22/18 at 1800, Until Discontinued, Maximum dose of acetaminophen is 4000 mg from all sources in 24 hours., Routine 0004 (Given - Provider: Dana Stevenson, RN)0527 (Given - Provider: Dana Stevenson RN)1247 (Given - Provider: Maryjo Fam RN)1832 (Given - Provider: Mundo Meehan, MIKE)2341 (Given - Provider: Dana Stevenson, RN) 0612 (Given - Provider: Dana Stevenson RN)1231 (Given - Provider: Mundo Meehan RN)1251 ([facility] Hold - Provider: Admin Adt - Reason: Transfer to a Procedural area)1515 ([facility] Unhold - Provider: Admin Adt)1720 (Given - Provider: Mundo Meehan RN)2357 (Given - Provider: Marques Mendoza RN) 0600 (Not Given - Provider: Marques Mendoza RN - Reason: Patient/family refused)1305 (Given - Provider: Susie Fisher RN) aspirin chewable tablet 81 mg (CANCELED) 81 mg, Oral, DAILY, First dose on Thu02/23/18 at 0900, Until Discontinued, Routine 0854 (Given - Provider: Mundo Meehan RN) 0844 (Given - Provider: Mundo Meehan RN)1251 ([facility] Hold - Provider: Admin Adt - Reason: Transfer to a Procedural area)1454 ([facility] Unhold - Provider: Admin Adt) aspirin EC tablet 81 mg 81 mg, Oral, DAILY, First dose on Thu02/27/18 at 0900, Until Discontinued, Routine atorvastatin (LIPITOR) tablet 40 mg 40 mg, Oral, EVERY EVENING, First dose on Thu02/22/18 at 1830, Until Discontinued, Routine 1636 (Given - Provider: Mundo Meehan RN) 1251 ([facility] Hold - Provider: Admin Adt - Reason: Transfer to a Procedural area)1515 ([facility] Unhold - Provider: Admin Adt)1720 (Given - Provider: Mundo Meehan RN) citalopram (CeleXA) tablet 40 mg 40 mg, Oral, DAILY, First dose (after last modification) on Thu02/23/18 at 1200, Until Discontinued, Routine 0854 (Given - Provider: Mundo Meehan RN) 0844 (Given - Provider: Mundo Meehan RN)1251 ([facility] Hold - Provider: Admin Adt - Reason: Transfer to a Procedural area)1515 ([facility] Unhold - Provider: Admin Adt) 0857 (Given - Provider: Susie Fisher RN) clopidogrel (PLAVIX) tablet 75 mg (CANCELED) 75 mg, Oral, DAILY, First dose on Thu02/23/18 at 0900, Until Discontinued, Routine 0854 (Given - Provider: Mundo Meehan RN) 0845 (Given - Provider: Mundo Meehan RN)1251 ([facility] Hold - Provider: Admin Adt - Reason: Transfer to a Procedural area)1454 ([facility] Unhold - Provider: Admin Adt) diaZEPam (VALIUM) tablet 2.5 mg (COMPLETED) 2.5 mg, Oral, ONCE, 1 dose, On Thu02/25/18 at 1015, Routine 1234 (Given - Provider: Mundo Meehan RN) fentaNYL (DURAGESIC) 50 mcg/hr patch 1 patch(Linked Group 1) 1 patch, Transdermal, EVERY 72 HOURS, First dose on Thu02/24/18 at 1200, Until Discontinued, Place fentaNYL patch, Routine 1159 (Patch Applied - Provider: Mundo Meehan RN) 1251 ([facility] Hold - Provider: Admin Adt - Reason: Transfer to a Procedural area)1515 ([facility] Unhold - Provider: Admin Adt) fentaNYL (DURAGESIC) 50 mcg/hr Patch Removal(Linked Group 1) Transdermal, EVERY 72 HOURS, First dose on Thu02/24/18 at 1200, Until Discontinued, Remove fentaNYL 50 mcg/hr patch 1200 (Patch Removed - Provider: Mundo Meehan RN) 1251 ([facility] Hold - Provider: Admin Adt - Reason: Transfer to a Procedural area)1515 ([facility] Unhold - Provider: Admin Adt) fentaNYL (DURAGESIC) 50 mcg/hr Patch Verification(Linked Group 1) Transdermal, 2 TIMES DAILY, First dose on Thu02/24/18 at 2300, Until Discontinued, Verify fentaNYL 50 mcg/hr patch 2300 (Patch (dose and location) verified - Provider: Dana Stevenson RN) 0900 (Patch (dose and location) verified - Provider: Mundo Meehan RN)1251 ([facility] Hold - Provider: Admin Adt - Reason: Transfer to a Procedural area)1515 ([facility] Unhold - Provider: Admin Adt)2100 (Patch (dose and location) verified - Provider: Marques Mendoza RN) 0900 (Patch (dose and location) verified - Provider: Susie Fisher, RN - Comment: left chest wall) gabapentin (NEURONTIN) capsule 600 mg 600 mg, Oral, DAILY AT NOON, First dose (after last modification) on Thu02/23/18 at 1200, Until Discontinued, Routine 1247 (Given - Provider: Maryjo Fam RN) 1225 (Given - Provider: Mundo Meehan, MIKE)1251 ([facility] Hold - Provider: Admin Adt - Reason: Transfer to a Procedural area)1515 ([facility] Unhold - Provider: Admin Adt) 1305 (Given - Provider: Susie Fisher, RN) gabapentin (NEURONTIN) capsule 900 mg 900 mg, Oral, NIGHTLY, First dose on Thu02/22/18 at 2100, Until Discontinued, Routine 2002 (Given - Provider: Dana Stevenson RN) 1251 ([facility] Hold - Provider: Admin Adt - Reason: Transfer to a Procedural area)1515 ([facility] Unhold - Provider: Admin Adt)2002 (Given - Provider: Marques Mendoza RN) heparin (Porcine) subcutaneous injection 5,000 Units 5,000 Units, Subcutaneous, EVERY 12 HOURS SCHEDULED (2 times per day), First dose on Thu02/24/18 at 2100, Until Discontinued, Routine 2003 (Given - Provider: Dana Stevenson RN) 0843 (Given - Provider: Mundo Meehan RN)1251 ([facility] Hold - Provider: Admin Adt - Reason: Transfer to a Procedural area)1515 ([facility] Unhold - Provider: Admin Adt)2004 (Given - Provider: Marques Mendoza RN) 0858 (Given - Provider: Susie Fisher, MIKE) ipratropium-albuterol (DUONEB) 0.5 mg-3 mg(2.5 mg base)/3 mL nebulizer solution 3 mL (CANCELED) 3 mL, Nebulization, EVERY 4 HOURS WHILE AWAKE, First dose (after last modification) on Thu02/23/18 at 1000, Until Discontinued, Routine 0527 (Given - Provider: Dana Stevenson RN)1120 (Given - Provider: Mundo Meehan, MIKE) ipratropium-albuterol (DUONEB) 0.5 mg-3 mg(2.5 mg base)/3 mL nebulizer solution 3 mL 3 mL, Nebulization, EVERY 6 HOURS, First dose (after last modification) on Thu02/26/18 at 1400, Until Discontinued, Routine 1332 (Given - Provider: Susie Fisher, MIKE) levoFLOXacin (LEVAQUIN) tablet 500 mg (COMPLETED) 500 mg, Oral, DAILY, 3 doses, First dose on Thu02/24/18 at 0900, Last dose on Thu02/26/18 at 0900, Routine, Indication for (Active or Suspected): Pneumonia (Community), Restricted Antibiotic: Please indicate the most appropriate choice: ID Approval by Radha Bañuelos MD 0831 (Given - Provider: Mundo Meehan RN) 0844 (Given - Provider: Mundo Meehan RN)1251 ([facility] Hold - Provider: Admin Adt - Reason: Transfer to a Procedural area)1515 ([facility] Un[facility] - Provider: Admin Adt) 0900 (Given - Provider: Susie Fisher, MIKE) metoprolol (LOPRESSOR) tablet 12.5 mg 12.5 mg, Oral, EVERY 6 HOURS SCHEDULED, First dose (after last modification) on Thu02/22/18 at 1800, Until Discontinued, Hold for HR <60 Hold for SBP <90 Hold for MAP <65, Routine 0004 (Given - Provider: Dana Stevenson RN)0527 (Given - Provider: Dana Stevenson RN)1247 (Given - Provider: Maryjo Fam RN)1833 (Given - Provider: Mundo Meehan, MIKE)2341 (Given - Provider: Dana Stevenson RN) 0540 (Given - Provider: Dana Stevenson RN)1224 (Given - Provider: Mundo Meehan RN)1251 ([facility] Hold - Provider: Admin Adt - Reason: Transfer to a Procedural area)1515 ([facility] Unhold - Provider: Admin Adt)1720 (Given - Provider: Mundo Meehan RN)2357 (Given - Provider: Marques Mendoza RN) 0520 (Given - Provider: Marques Mendoza, RN)1305 (Given - Provider: Susie Fisher, MIKE) nicotine (NICODERM CQ) 21 mg/24 hr patch 21 mg(Linked Group 2) 21 mg (1 patch), Transdermal, DAILY, First dose on Thu02/23/18 at 1545, Until Discontinued, Routine 0904 (Patch Applied - Provider: Mundo Meehan RN) 0843 (Patch Applied - Provider: Mundo Meehan RN)1251 ([facility] Hold - Provider: Admin Adt - Reason: Transfer to a Procedural area)1515 ([facility] Un[facility] - Provider: Admin Adt) 0857 (Patch Applied - Provider: Susie Fisher RN) nicotine (NICODERM CQ) 21 mg/24 hr patch Patch Removal(Linked Group 2) Transdermal, DAILY, First dose on Thu02/24/18 at 0900, Until Discontinued, Remove nicotine 21 mg/24 hr patch 0900 (Patch Removed - Provider: Mundo Meehan RN) 0900 (Patch Removed - Provider: Mundo Meehan RN)1251 ([facility] Hold - Provider: Admin Adt - Reason: Transfer to a Procedural area)1515 ([facility] Un[facility] - Provider: Admin Adt) 0900 (Patch Removed - Provider: Susie Fisher RN) nicotine (NICODERM CQ) 21 mg/24 hr patch Patch Verification(Linked Group 2) Transdermal, 2 TIMES DAILY, First dose on Thu02/24/18 at 0900, Until Discontinued, Verify nicotine 21 mg/24 hr patch 0900 (Patch (dose and location) verified - Provider: Mundo Meehan RN)2100 (Patch (dose and location) verified - Provider: Dana Stevenson RN) 0900 (Patch (dose and location) verified - Provider: Mundo Meehan RN)1251 ([facility] Hold - Provider: Admin Adt - Reason: Transfer to a Procedural area)1515 ([facility] Unhold - Provider: Admin Adt)2100 (Patch (dose and location) verified - Provider: Marques Mendoza RN) 0900 (Patch (dose and location) verified - Provider: Susie Fisher RN) potassium chloride (K-DUR/KLOR-CON) extended release tablet 40 mEq (COMPLETED) 40 mEq, Oral, ONCE, 1 dose, On Thu02/24/18 at 0715, Routine 0854 (Given - Provider: Mundo Meehan RN) potassium chloride (K-DUR/KLOR-CON) extended release tablet 40 mEq (COMPLETED) 40 mEq, Oral, ONCE, 1 dose, On Thu02/25/18 at 1100, Routine 1226 (Given - Provider: Mundo Meehan RN) potassium chloride (K-DUR/KLOR-CON) extended release tablet 40 mEq (COMPLETED) 40 mEq, Oral, ONCE, 1 dose, On Thu02/26/18 at 0900, Routine 0858 (Given - Provider: Susie Fisher, MIKE) predniSONE (DELTASONE) tablet 40 mg (COMPLETED) 40 mg, Oral, DAILY, 4 doses, First dose on Thu02/23/18 at 0900, Last dose on Thu02/26/18 at 0900, Routine 0854 (Given - Provider: Mundo Meehan RN) 0845 (Given - Provider: Mundo Meehan RN)1251 ([facility] Hold - Provider: Admin Adt - Reason: Transfer to a Procedural area)1515 ([facility] Unhold - Provider: Admin Adt) 0857 (Given - Provider: Susie Fisher, MIKE) sodium chloride 0.9 % flush 5 mL 5 mL, Intravenous, 2 TIMES DAILY, First dose on Thu02/22/18 at 2100, Until Discontinued, Routine 0900 (Given - Provider: Mundo Meehan RN)2003 (Given - Provider: Dana Stevenson RN) 0845 (Given - Provider: Mundo Meehan RN)1251 ([facility] Hold - Provider: Admin Adt - Reason: Transfer to a Procedural area)1515 ([facility] Unhold - Provider: Admin Adt)2010 (Given - Provider: Marques Mendoza RN) 0859 (Given - Provider: Susie Fisher RN) traZODone (DESYREL) tablet 50 mg 50 mg, Oral, NIGHTLY, First dose on Thu02/24/18 at 2100, Until Discontinued, Routine 2002 (Given - Provider: Dana Stevenson RN) 1251 ([facility] Hold - Provider: Admin Adt - Reason: Transfer to a Procedural area)1515 ([facility] Unhold - Provider: Admin Adt)2002 (Given - Provider: Marques Mendoza, MIKE) Continuous Medication Order 02/24/2018 02/25/2018 02/26/2018 sodium chloride 0.9% infusion () 100 mL/hr, Intravenous, CONTINUOUS, Starting on [place] 02/25/18 at 1430, Until [place] 02/25/18 at 1829, Recovery ([facility]) 1615 (New Bag - Provider: Mundo Meehan, MIKE) PRN Medication Order 02/24/2018 02/25/2018 02/26/2018 dextromethorphan-guaiFENesi n (ROBITUSSIN) 10-100 mg/5 mL oral syrup 5 mL 5 mL, Oral, EVERY 4 HOURS PRN, Starting on 02/22/18 at 1706, Until 02/26/18 at 1648, Cough, Routine 1349 (Given - Provider: Mundo Meehan, MIKE)1836 (Given - Provider: Mundo Meehan RN) 1251 ([facility] Hold - Provider: Admin Adt - Reason: Transfer to a Procedural area)1515 ([facility] Unhold - Provider: Admin Adt)2042 (Given - Provider: Marques Mendoza, MIKE) 0404 (Given - Provider: Marques Mendoza RN) fentaNYL 50 mcg/mL multi-dose injection (CANCELED) ONCE PRN, Starting on [place] 02/25/18 at 1314, Until [place] 18 at 1354, Cath (Intra-Procedure), Routine 1314 (Given - Provider: Tyrell Louis RN)1328 (Given - Provider: Danette Salgado, MIKE) heparin (porcine) injection (CANCELED) ONCE PRN, Starting on [place] 02/25/18 at 1329, Until [place] 18 at 1354, Cath (Intra-Procedure), Routine 1329 (Given - Provider: Danette Salgado, MIKE) iohexol (OMNIPAQUE) 350 mg/mL solution (CANCELED) ONCE PRN, Starting on [place] 02/25/18 at 1340, Until [place] 18 at 1354, Cath (Intra-Procedure), Routine 1340 (Given - Provider: Jasvir Mcclain MD) ipratropium-albuterol (DUONEB) 0.5 mg-3 mg(2.5 mg base)/3 mL nebulizer solution 3 mL 3 mL, Nebulization, EVERY 4 HOURS PRN, Starting on Thu02/24/18 at 1300, Until Thu02/26/18 at 1331, Wheezing, Routine 2004 (Given - Provider: Dana Stevenson RN) 1251 ([facility] Hold - Provider: Admin Adt - Reason: Transfer to a Procedural area)1515 ([facility] Unhold - Provider: Admin Adt) lidocaine (XYLOCAINE) 10 mg/mL (1 %) injection 3 mg 3 mg (0.3 mL), Subcutaneous, ONCE PRN, 1 dose, Starting on Thu02/22/18 at 1706, Until Thu02/26/18 at 1648, for discomfort with PIV insertion, Routine 1251 ([facility] Hold - Provider: Admin Adt - Reason: Transfer to a Procedural area)1515 ([facility] Unhold - Provider: Admin Adt) lidocaine (XYLOCAINE) 10 mg/mL (1 %) injection (CANCELED) ONCE PRN, Starting on [place] 02/25/18 at 1322, Until [place] 02/25/18 at 1354, Cath (Intra-Procedure), Routine 1322 (Given - Provider: Tiffanie Arshad MD) loperamide (IMODIUM) capsule 2 mg 2 mg, Oral, 4 TIMES DAILY PRN, Starting on Thu02/24/18 at 1046, Until Thu02/26/18 at 1648, Diarrhea, Do not exceed 16 mg/day., Routine 1251 ([facility] Hold - Provider: Admin Adt - Reason: Transfer to a Procedural area)1515 ([facility] Unhold - Provider: Admin Adt)1757 (Given - Provider: Mundo Meehan, MIKE) 0905 (Given - Provider: Susie Fisher, MIKE)1308 (Given - Provider: Susie Fisher, MIKE) midazolam (PF) (VERSED) 1 mg/mL multi-dose injection (CANCELED) ONCE PRN, Starting on [place] 02/25/18 at 1314, Until [place] 02/25/18 at 1354, Cath (Intra-Procedure), Routine 1314 (Given - Provider: Tyrell Louis RN) nicotine polacrilex (NICORETTE) gum 2 mg 2 mg, Buccal, EVERY 2 HOURS PRN, Starting on Thu02/23/18 at 1515, Until Thu02/26/18 at 1648, Smoking cessation, Chew gum slowly. Do not swallow. Maximum of 48 mg/day., Routine 1204 (Given - Provider: Mundo Meehan RN) 1251 ([facility] Hold - Provider: Admin Adt - Reason: Transfer to a Procedural area)1515 ([facility] Unhold - Provider: Admin Adt) nitroGLYcerin (NITROSTAT) SL tablet 0.4 mg 0.4 mg, Sublingual, EVERY 5 MIN PRN, Starting on Thu02/22/18 at 1706, Until Thu02/26/18 at 1648, Chest pain, May repeat every 5 minutes for a total of three doses. Notify provider if chest pain not relieved with nitroglycerin. Do not administer nitroglycerin if the patient has received or taken phosphodiesterase (PDE-5) inhibitors such as sildenafil, tadalafil or vardenafil within the last 24 to 72 hours., Routine 1251 ([facility] Hold - Provider: Admin Adt - Reason: Transfer to a Procedural area)1515 ([facility] Unhold - Provider: Admin Adt) nitroGLYcerin 100 mcg/mL intracoronary dilution (CANCELED) ONCE PRN, Starting on Thu02/25/18 at 1328, Until Thu02/25/18 at 1354, Cath (Intra-Procedure), Routine 1328 (Given - Provider: Tiffanie Arshad MD) sodium chloride 0.9 % flush 5-20 mL 5-20 mL, Intravenous, EVERY 1 MIN PRN, Starting on Thu02/22/18 at 1706, Until Thu02/26/18 at 1648, flush, Flush pertains to all indwelling lines. Flush per protocol found in the job aid using the link provided on this medication record., Routine 1251 ([facility] Hold - Provider: Admin Adt - Reason: Transfer to a Procedural area)1515 ([facility] Unhold - Provider: Admin Adt) verapamil (ISOPTIN) injection (CANCELED) ONCE PRN, Starting on Thu02/25/18 at 1328, Until Thu02/25/18 at 1515, Administer over 2 Minutes, Cath (Intra-Procedure) 1328 (Given - Provider: Tiffanie Arshad MD) Linked Groups Order Group 1: fentaNYL (DURAGESIC) 50 mcg/hr patch 1 patchJump to med 1 patch, Transdermal, EVERY 72 HOURS, First dose on Thu02/24/18 at 1200, Until Discontinued, Place fentaNYL patch, Routine And fentaNYL (DURAGESIC) 50 mcg/hr Patch VerificationJump to med Transdermal, 2 TIMES DAILY, First dose on Thu02/24/18 at 2300, Until Discontinued, Verify fentaNYL 50 mcg/hr patch And fentaNYL (DURAGESIC) 50 mcg/hr Patch RemovalJump to med Transdermal, EVERY 72 HOURS, First dose on Thu02/24/18 at 1200, Until Discontinued, Remove fentaNYL 50 mcg/hr patch Group 2: nicotine (NICODERM CQ) 21 mg/24 hr patch 21 mgJump to med 21 mg (1 patch), Transdermal, DAILY, First dose on Thu02/23/18 at 1545, Until Discontinued, Routine And nicotine (NICODERM CQ) 21 mg/24 hr patch Patch VerificationJump to med Transdermal, 2 TIMES DAILY, First dose on Thu02/24/18 at 0900, Until Discontinued, Verify nicotine 21 mg/24 hr patch And nicotine (NICODERM CQ) 21 mg/24 hr patch Patch RemovalJump to med Transdermal, DAILY, First dose on Thu02/24/18 at 0900, Until Discontinued, Remove nicotine 21 mg/24 hr patch documented in this encounter Care Teams Risk Control Field Representative Relationship Specialty Start Date End Date Ana Dwyer MD [address] [place] [address] PCP - General Family Medicine 10/30/17 documented as of this encounter
--- OUTSIDE RECORDS SUMMARY | 2024-09-30 01:27 | XMS_ITS | Encounter Summary ---
Author Organization [facility] [place] [address] Care Team Providers Care Photo Checker And Assembler Name Role Phone Danette Nam DELROY Primary Care Provider [phone] Reason for Visit * Reason Comments Skin Check Encounter Details Date Type Department Care Team (Late st Contact Info) Description 07/08/2011 10:30 AM EST Office Visit Dermatology [facility] [address] [place], [place] [id number] Silas Lockett MD [address], [place] [address] Nevus (Primary Dx) Social History Tobacco Use Types Packs/Day Years Used Date Smoking Tobacco: Former Sex and Gender Information Value Date Recorded Sex Assigned at Not on file Gender Identity Not on file Sexual Orientation Not on file documented as of this encounter Progress Notes * Silas Lockett MD - 07/08/2011 10:44 AM EST Problem: Left ear lesion. Danette follows up after last being seen in May of 2010. She has had a lesion that has been sore, has occasionally scabbed, crusted and bled on her left mid helical rim just below the midpoint of the helical rim. She is concerned that it may be skin cancer. She states that she is one of sixteen children and all of them have had cancers of various types. She is status post hysterectomy for ovarian cancer herself. The patient is referred back to see me by Dr. Dwyer. Physical examination reveals a firm flesh colored 4mm papule on the left ear below the midpoint of the helical rim which faces somewhat anteriorly. It has slight erosion over its surface. It appears to be an irritated manipulated nevus. Differential would also include possible BCCa/SCCa. Assessment & Plan: Nevus, rule out BCCa/SCCa. a. After obtaining patient consent, the site was anesthetized and shave C & D x3 performed. b. Triple antibiotic ointment and Band-Aid placed. c. Wound care instructions and supplies given. d. RTC p.r.n. for new lesions/concerns. Cc: Ana Dwyer MD Pathology Addendum per [facility] 07/14/11: Intradermal nevus, ulcerated. documented in this encounter Plan of Treatment Not on file documented as of this encounter Visit Diagnoses Diagnosis Nevus- Primary Benign neoplasm of skin, site unspecified documented in this encounter Care Teams Photo Checker And Assembler Relationship Specialty Start Date End Date Danette Nam APRN PCP - General 07/23/10 10/29/17 documented as of this encounter
--- OUTSIDE RECORDS SUMMARY | 2024-09-30 01:27 | XMS_ITS | Encounter Summary ---
Author Organization [facility] [place] [address] Care Team Providers Care Manager Law Name Role Phone Ana Dwyer MD Primary Care Provider [phone] Encounter Details Date Type Department Care Team (Late st Contact Info) Description 02/22/2018 External Results [address] [place] [id number] Social History Tobacco Use Types Packs/Day Years Used Date Smoking Tobacco: Former Sex and Gender Information Value Date Recorded Sex Assigned at Not on file Gender Identity Not on file Sexual Orientation Not on file documented as of this encounter Plan of Treatment Not on file documented as of this encounter Procedures Procedure Name Priority Date/Time Associated Diagnosis Comments ECG SCAN Routine 02/22/2018 documented in this encounter Results * Scan Doc: ECG (02/22/2018) Historical Provider MD S[facility] MGR SCAN EX T ORDR/RSLT documented in this encounter Visit Diagnoses Not on filedocumented in this encounter Care Teams Manager Law Relationship Specialty Start Date End Date Ana Dwyer MD [address] [place] [address] PCP - General Family Medicine 10/30/17 documented as of this encounter
--- OUTSIDE RECORDS SUMMARY | 2024-09-30 01:27 | XMS_ITS | Encounter Summary ---
Author Organization [facility] Address [address] [place] [address] Care Team Providers Care Tong Setter Name Role Phone Danette Nam ALMOND BLANCHER HAND Primary Care Provider [phone] Encounter Details Date Type Department Care Team (Late st Contact Info) Description 11/25/2010 Results Only [facility] Laboratory Services - [facility] ([facility] [address] [place] [id number] Teodora Fang MD [address] [place] [address] [place] [address] Social History Tobacco Use Types Packs/Day Years Used Date Smoking Tobacco: Never Assessed Comments Unknown Sex and Gender Information Value Date Recorded Sex Assigned at Not on file Legal Sex Female 18:25 EST Gender Identity Not on file Sexual Orientation Not on file documented as of this encounter Plan of Treatment Not on file documented as of this encounter Procedures Procedure Name Priority Date/Time Associated Diagnosis Comments CYTOPATHOLOGY Routine 11/25/2010 0:00 EDT documented in this encounter Results * CYTOPATHOLOGY (11/25/2010 0:00 EDT) Pathology Report: CYTOPATHOLOGY REPORT ? Reports generated via electronic interface contain original data; ? however they are lacking the format of the original report. ? Caution should be taken when reading/interpreti ng unformatted reports. ? Name: ? DANETTE GEORGE ? Accession #: ? [id number] ? : ? 1940 (Age: 70) ??F ?Collect Date: ? 11/25/2010 ? Location: ? [facility] ? Receive Date: ? 11/25/2010 ? Provider: ?TEODORA BRIAN MD ? Copy to: ? Specimen/Source: ?Pap Test, Vagina, ThinPrep Imaging System with manual ?? evaluation ? Last Menstrual Period: ? Previous Gynecologic Pathology: ? Adenocarcinoma ? Treatment History: ? Hysterectomy: [facility] for Adenoca. 08/10 ? SPECIMEN ADEQUACY ? Satisfactory for Evaluation ? - assessment of transformation zone component not applicable ( e.g. atrophy, ? vaginal sample, hysterectomy) ? GENERAL CATEGORIZATION ? Negative for Intraepithelial Lesion or Malignancy ? Document reviewed and electronically signed by: ? Lynan Sage, CT(ASCP) ? Report Date: ??11/28/2010 15:53 ? End of Report ? [facility] 11/25/2010 11/25/2010 us Teodora Fang MD PATHOLOGY ORDERABLES Final Resu lt [facility] [address] [place] [address] documented in this encounter Visit Diagnoses Not on filedocumented in this encounter Care Teams Tong Setter Relationship Specialty Start Date End Date Danette Nam, [facility] [address] [place], [place] [address] PCP - General 02/08/10 documented as of this encounter
--- OUTSIDE RECORDS SUMMARY | 2024-09-30 01:27 | XMS_ITS | Clinical Summary ---
Author Organization [facility] Address [address] [place] [address] Care Team Providers Care Bin Filler Name Role Phone Danette Nam SPRAY MAKER Primary Care Provider [phone] Social History Tobacco Use Types Packs/Day Years Used Date Smoking Tobacco: Never Assessed Comments Unknown Sex and Gender Information Value Date Recorded Sex Assigned at Not on file Legal Sex Female 18:25 EST Gender Identity Not on file Sexual Orientation Not on file Plan of Treatment Health Maintenance Due Date Last Done Comments Fall Risk Screening 2007 RSV Immunization ( o r 60+ Years) (1 - 1-dose 75+ series) 2017 COVID-19 Vaccine ( season) 2024 Care Teams Bin Filler Relationship Specialty Start Date End Date Danette Nam NP [facility] [address] [place] [address] PCP - General 02/08/10
--- OUTSIDE RECORDS SUMMARY | 2024-09-30 01:27 | XMS_ITS | Encounter Summary ---
Author Organization [facility] Address [address] [place] [address] Care Team Providers Care Plisse Machine Operator Helper Name Role Phone Unavailable Primary Care Provider Unavailabl e Encounter Details Date Type Department Care Team (Late st Contact Info) Description 02/06/2010 Results Only [facility] Laboratory Services - [facility] ([facility]) [address] [place] [address] Teodora Fang MD [address] [place] [address] [place] [address] Social History Tobacco Use Types Packs/Day Years [...] Procedure Name Priority Date/Time Associated Diagnosis Comments SURGICAL PATHOLOGY Routine 02/06/2010 0:00 EDT documented in this encounter Results * SURGICAL PATHOLOGY (02/06/2010 0:00 EDT) Pathology Report: SURGICAL PATHOLOGY REPORT ? Reports generated via electronic interface contain original data; ? however they are lacking the format of the original report. ? Caution should be taken when reading/interpreti ng unformatted reports. ? Name: ? NATALY, DANETTE ? Accession #: ? [id number] ? : ? 1940 (Age: 69) ??F ? Collect Date: ? 02/06/2010 ? Location: ? [facility] ? Receive Date: ? 02/06/2010 ? Provider: TEODORA FANG MD ? Copy to: DANETTE MACK HUMANITIES PROFESSOR ? Final Pathologic Diagnosis: ? A. ?Endometrium, curettage: ? 1. 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 hyperplastic polyp. ??See comment. ? 2. ? Fragments of benign ectocervical and endocervical mucosa. ? B. ?Endometrium, biopsy: ? 1. ?Scant fragments of tubal metaplasia, possibly of lower uterine ? segment origin; ?insufficient quantity for definitive diagnosis. ? Comment: ? Histologic sections from the curettage (specimen A) show that a majority of the specimen consists of a fragmented hyperplastic polyp. ??Some areas show ? infarction. ??However, several foci demonstrate cribriform architecture ? consistent with a well-differentiate d FIGO Grade I endometrioid adenocarcinoma ?? arising in a polyp. ??Dr. Destinee Worthington reviewed this case in consultation, and ?? she concurs. ??These results were communicated to Dr. Teodora Fang on February 13, ? 2009, via telephone. ??(Dr. Jeff)/[facility] ? Document reviewed and electronically signed by: ? Billy Walker MD ? Report ??Date: 02/13/2010 10:31 ? By the signature above, the attending physician certifies that he/she has ? personally conducted a gross and/or microscopic examination of the described ? specimens and rendered or confirmed the above diagnosis. ? Specimen(s) Received: ? A. ?Endometrial curettings (#1) ? B. ? Endometrial bx (#2) ? Clinical History: ? Hx of postmenopausal bleeding ? Gross Description: ? Received in formalin labelled Danette George and #1 ??endometrial curettings are approximately 4 cc of clotted blood and blood tinged mucous admixed with ? multiple fragments of artis-pink tissue. ??Also present are four artis-white ? membranous tissues which range in size from 1.2 x 0.6 x 0.4 cm to 3.0 x 1.4 x ?? 0.8 cm. ??The membranous tissues are sectioned, and the entire specimen is ? submitted as (A1) ??(A6). ? Received in formalin labelled Danette George and #2 ??endometrial bx is a ? collection of artis-pink tissues measuring 0.1 x 0.1 x 0.1 cm in aggregate. ??The ?? specimen is submitted entirely as (B). ??(Karely Arreguin)/mms ? End of Report ? DANNY RODRÍGUEZ 02/06/2010 02/06/2010 16: 59 EDT us Teodora Fang MD PATHOLOGY ORDERABLES Final Resu lt DANNY RODRÍGUEZ [address] [place] [address] documented in this encounter Visit Diagnoses Not on filedocumented in this encounter
--- OUTSIDE RECORDS SUMMARY | 2024-09-30 01:27 | XMS_ITS | Encounter Summary ---
Author Organization [facility] Address [address] [place] [address] Care Team Providers Care Complex Care Nurse Practitioner Name Role Phone Danette Nam CARDIOGRAPH OPERATOR Primary Care Provider [phone] Encounter Details Date Type Department Care Team (Late st Contact Info) Description 05/03/2020 Lab Requisition [facility] Pathology & Laboratory Medicine - [address] [address] Outr Resulting Lab, Provider Social History Tobacco Use Types Packs/Day Years [...] Procedure Name Priority Date/Time Associated Diagnosis Comments ZZCOVID-19 TEST [facility] PCR Today 05/03/2020 19:35 EDT COVID-19 TESTING Routine 05/03/2020 19:3 5 EDT documented in this encounter Results * COVID-19 TEST [facility] PCR (05/03/2020 19:35 EDT) Swab ENTIRE NASOPHARYNX / Unknown 05/03/2020 19:35 EDT 05/04/2020 8:53 EDT us Provider Outr Resulting Lab MICROBIOLOGY - GENER AL ORDERABLES Final Result [facility] [address] [place] [address] * COVID-19 TESTING (05/03/2020 19:35 EDT) COVID-19 rt-PCR Result Negative Negative 05/04/2020 14:14 EDT [facility] Comment: This test has not been FDA cleared or approved. This test has been authorized by FDA under an EUA for use by authorized laboratories. This test has been authorized only for detection of nucleic acid from 2019-nCoV, not for any other viruses or pathogens. This test is only authorized for the duration of the declaration that circumstances exist justifying the authorization of emergency use of in vitro diagnostic tests for detection and/or diagnosis of 2019-nCoV under section 564(b)(1) of Act, 21 U.S.C ?? 360bbb-3(b) (1), unless the authorization is terminated or revoked sooner. Negative results do not preclude 2019-nCoV infection and should not be used as the sole basis for treatment or other patient management decisions. Negative results must be combined with clinical observations, patient history, and epidemiological information. Performed on the [employer] Fusion instrument Performing Lab [facility] Lab 05/04/2020 14:14 EDT [facility] Swab 05/03/2020 19:3 5 EDT 05/04/2020 8:53 EDT us Provider Outr Resulting Lab MICROBIOLOGY - GENER AL ORDERABLES Final Result [facility] [address] [place] [address] documented in this encounter Visit Diagnoses Not on filedocumented in this encounter Additional Health Concerns Infection Onset Date Last Indicated Resolved Time RSV 08/04/2022 08/04/2022 08/14/2022 22:1 5 EST documented as of this encounter Care Teams Complex Care Nurse Practitioner Relationship Specialty Start Date End Date Danette Nam NP [facility] [address] [place] [address] PCP - General 02/08/10 documented as of this encounter
--- OUTSIDE RECORDS SUMMARY | 2024-09-30 01:27 | XMS_ITS | Encounter Summary ---
Author Organization [facility] Address [address] [place] [address] Care Team Providers Care Communications Advisor Name Role Phone Danette Nam BOWL TURNER Primary Care Provider [phone] Encounter Details Date Type Department Care Team (Late st Contact Info) Description 08/04/2022 Lab Requisition [facility] Pathology & Laboratory Medicine - [address] [address] Outr Resulting Lab, Provider Social History Tobacco [...] Procedure Name Priority Date/Time Associated Diagnosis Comments KarlZELIESER INFLUENZA A AND B, RSV PCR Routine 08/04/2022 9:41 EST documented in this encounter Results * (ABNORMAL) INFLUENZA A AND B,RSV PCR (08/04/2022 9:41 EST) FLU A RNA Result (FLARES) Negative Negative 08/06/2022 17:55 EST [facility] FLU B RNA Result (FLBRES) Negative Negative 08/06/2022 17:55 EST [facility] RSV RNA Result (RSVRES) Positive(A) Negative 08/06/2022 17:55 EST [facility] ZZUNK ENTIRE NASOPHARYNX / Unknown 08/04/2022 9:41 EST 08/05/2022 16:46 EST us Provider Outr Resulting Lab MICROBIOLOGY - GENER AL ORDERABLES Final Result [facility] [address] [place] [address] documented in this encounter Visit Diagnoses Not on filedocumented in this encounter Additional Health Concerns Infection Onset Date Last Indicated Resolved Time RSV 08/04/2022 08/04/2022 08/14/2022 22:1 5 EST documented as of this encounter Care Teams Communications Advisor Relationship Specialty Start Date End Date Danette Nam, [facility] [address] [place], [place] [id number] PCP - General 02/08/10 documented as of this encounter
--- OUTSIDE RECORDS SUMMARY | 2024-09-30 01:27 | XMS_ITS | Encounter Summary ---
Author Organization [facility] [place] [address] Care Team Providers Care Bandage Wrapping Machine Operator Name Role Phone Ana Dwyer MD Primary Care Provider [phone] Encounter Details Date Type Department Care Team (Late st Contact Info) Description 02/22/2010 Orders Only [place] [id number] Nessa Sen MD Social History Tobacco Use Types Packs/Day Years Used Date Smoking Tobacco: Never Assessed Sex and Gender Information Value Date Recorded Sex Assigned at Not on file Gender Identity Not on file Sexual Orientation Not on file documented as of this encounter Plan of Treatment Not on file documented as of this encounter Procedures Procedure Name Priority Date/Time Associated Diagnosis Comments SURGICAL PATHOLOGY REPORT Routine 02/22/2010 8:00 AM EDT documented in this encounter Results * Surgical Pathology Report (02/22/2010 8:00 AM EDT) Surgical Pathology Report [id number] ? Location: [facility] The signing pathologist has (i) examined the relevant preparation(s) for the specimen(s) and (ii) rendered or confirmed the diagnosis(es). . ?Pathology Surgical Pathology Final Report Clinical Information Specimen Submitted: CONSULTATION CASE A - 7 slides labeled [id number], collection date 02/06/2010. [id number] Report to: [facility] Surgical Pathology [address] ??[address] Phone - [phone] Fax - [phone] Gross Description [facility]'s ([facility]) pathology slide(s) are reviewed. ??Refer to Diagnosis and Specimen Submitted for specific case information. For the full text of the [facility] report(s) please refer to Non-DH Documentation Pathology in the Clinical Information System (CIS). Microscopic Description Slides reviewed, microscopic description not recorded. Diagnosis CONSULTATION CASE Extradepartmental number: [id number]; collection date, 02/06/2010. A - Endometrial curettings: ?Adenocarcinoma, endometrioid type (FIGO grade I), arising ?within an endometrial polyp. B - Endometrial biopsy: ?Fragments of benign inactive endometrium with tubal ?metaplasia. CR-0 02/22/10 JLG 02/25/10 Verified by: ? Tulio YAÑEZ, Piero Chiang ?Pathologist ?(Electronic Signature) The attending pathologist whose signature appears on this report has reviewed all diagnostic slides and has edited the gross and/or microscopic portion of the report in rendering the final pathologic diagnosis. ELAINA DIAZ 02/22/2010 8:00 AM EDT Nessa Sen MD PATHOLOGY/CYTOLOGY O RDERABLES Performing Organization Address City/State/[facility] Co de Phone Number ELAINA DIAZ documented in this encounter Visit Diagnoses Not on filedocumented in this encounter Care Teams Bandage Wrapping Machine Operator Relationship Specialty Start Date End Date Ana Dwyer MD [address] [place] [address] PCP - General Family Medicine 3/2/18 documented as of this encounter
--- OUTSIDE RECORDS SUMMARY | 2024-09-30 01:27 | XMS_ITS | Encounter Summary ---
Author Organization [facility] Address [address] [place] [address] Care Team Providers Care Teacher Of The Handicapped Name Role Phone Danette Mack TEST CLERK Primary Care Provider [phone] Encounter Details Date Type Department Care Team (Late st Contact Info) Description 03/01/2004 Results Only [facility] - [facility] [address] [place] [address] Danette Mack, TEST CLERK [facility] [address] [place], [place] [address] Social History Tobacco Use Types Packs/Day Years [...] Priority Date/Time Associated Diagnosis Comments CYTOPATHOLOGY Routine 03/01/2004 0:00 EDT documented in this encounter Results * CYTOPATHOLOGY (03/01/2004 0:00 EDT) Pathology Report: CYTOPATHOLOGY REPORT Reports generated via electronic interface contain original data; however they are lacking the format of the original report. Caution should be taken when reading/interpreti ng unformatted reports. Name: ? DORISDANETTE ? Accession #: ? [id number] : ? 1940 (Age: 63) ??F ?Collect Date: ? 03/01/2004 Location: ? [facility] ? Receive Date: ? 03/06/2004 Provider: ?DANETTE MACK TEST CLERK Copy to: ? Specimen/Source: ?ThinPrep Pap Test, Cervix/Endocervix Last Menstrual Period: ? 10 yrs ? SPECIMEN ADEQUACY ? Satisfactory for Evaluation - transformation zone component present GENERAL CATEGORIZATION ? Negative for Intraepithelial Lesion or Malignancy ? Document reviewed and electronically signed by: ? Colin Gonzáles, MACY(ASCP) ? Report Date: ??03/12/2004 09:49 End of Report DANNY RODRÍGUEZ 03/01/2004 03/06/2004 us Danette Mack TEST CLERK PATHOLOGY ORDERABLES Final Resu lt [facility] [address] [place] [address] documented in this encounter Visit Diagnoses Not on filedocumented in this encounter Care Teams Teacher Of The Handicapped Relationship Specialty Start Date End Date Danette Mack TEST CLERK [facility] [address] [place] [address] PCP - General 02/08/10 documented as of this encounter
--- OUTSIDE RECORDS SUMMARY | 2024-09-30 01:27 | XMS_ITS | Encounter Summary ---
Author Organization [facility] [place] [address] Care Team Providers Care Manager Summer Name Role Phone Ana Dwyer MD Primary Care Provider [phone] Encounter Details Date Type Department Care Team (Late st Contact Info) Description 04/04/2010 Orders Only Gyne[place] [phone] Nessa Sen MD Social History Tobacco Use [...] Associated Diagnosis Comments SURGICAL PATHOLOGY REPORT Routine 04/04/2010 9:22 AM EDT documented in this encounter Results * Surgical Pathology Report (04/04/2010 9:22 AM EDT) Surgical Pathology Report [id number] ? Location: [facility]; [facility]; The signing pathologist has (i) examined the relevant preparation(s) for the specimen(s) and (ii) rendered or confirmed the diagnosis(es). . ?Pathology Surgical Pathology Final Report Clinical Information Specimen Submitted: A - Uterus/cervix/tube s/ovaries, pelvic for frozen section B - Left pelvic lymph nodes, left. Clinical History: Endometrial cancer ? depth ? uterine invasion involvement Clinical Diagnosis: Endometrial cancer Frozen Section Diagnosis Frozen section(s) performed. ??Please refer to separate electronic frozen section report(s). Gross Description A - Labeled/Fixative: ?Uterus, cervix, tubes, and ovaries; fresh. Qty/Size/Weight: ? 8.0 x 4.5 x 4.0 cm, 120 g. Tissue Description: ?Intact symmetrical uterus with attached cervix and ? attached bilateral adnexa. ?? Uterus and Cervix: ?Endometrium: ? Flattened, glistening, pink-artis. ? Thickness: ?Averages 0.2 cm. ? Lesions: ?None identified grossly. ?Myometrium: ?Rubbery, trabeculated, pink-artis. ? Thickness: ?1.4 cm in thickness but is severely distorted due ? to the lesions. ? Lesions: ?There are numerous intramural dense, estrada-white, ? whorled nodules, up to 3.5 cm in greatest ? dimension. ?Uterine serosa: ?Smooth, glistening, pink-artis. ?Cervix: ?Ectocervix is 2.2 cm in diameter, smooth, ? estrada-white. ?? Ovaries and Fallopian Tubes: ?Right ovary ? Dimensions: ? 1.8 x 1.5 x 1.0 cm. ? Outer surface: ??Cerebriform, yellow-artis. ? Cut surface: ?Unremarkable. ?Right tube: ?There is a 3.5 x 0.5-cm segment of pink-artis ? fallopian tube identified which displays evidence ? of previous surgical interruption. ?Left ovary ? Dimensions: ? 2.2 x 1.5 x 1.2 cm. ? Outer surface: ??Cerebriform, estrada-white. ? Cut surface: ?Unremarkable. ?Left tube: ? There is a 3.8 x 0.5-cm segment of pink-artis ? fallopian tube identified which displays evidence ? of previous surgical interruption. Sections/Processin g: ? Mangle Operator Garments sections are submitted as follows: ? (1) Anterior squamnocolumnar junction; (2-3) ? anterior endocervical canal/MIGUEL ANGEL, cervical side ? inked black; (4) posterior squamocolumnar ? junction; (5-7) posterior endocervical canal/MIGUEL ANGEL, ? cervical side inked black; (8-12) entire anterior . Gross Description ? endomyometrium full-thickness sections; (13-20) ? represent split full-thickness sections of the ? entire posterior endomyometrium; (21) additional ? sections of the largest myometrial nodule; (22) ? right adnexa; (23) left adnexa. ??(R23) B - Labeled/Fixative: Left pelvic lymph node, left; fresh. Qty/Size/Weight: ?Fragments, collectively 1.0 x 4.0 x 3.0 cm. Tissue Description: ?? Portions of artis-yellow, lobular, fatty tissue within ?which ten possible artis-yellow to artis-pink ?lymph nodes are identified, up to 2.2 cm in ?greatest dimension. Sections/Processin g: ??(B1) four intact nodes; (B2-B3) each contain two ?differentially inked and bisected nodes; (B4) single ?node, sectioned; (B5) the largest node, sectioned. ?(R5) ??aje/EJR Microscopic Description Slides reviewed, microscopic description not recorded. 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 FIGO grade: ?I ?Architectural grade: ?1 ?Nuclear grade: ?1 Tumor size: ? Residual focus, 3.0 millimeters ?in diameter Myometrial invasion (no invasion, <1/2, >1/2): ??No evidence of myometrial invasion Myometrial lymphovascular ?? space invasion: ?Not identified Lower uterine segment involvement: ?Absent Cervical involvement: ? Cervix free of tumor Other: ?1. Intramural leiomyomas ?2. Adenomyosis ?3. Bilateral fallopian tubes and ? ovaries, no evidence of malignancy B - Left pelvic lymph nodes, excision: ?Nine lymph nodes, no evidence of malignancy (0/9). TNM Staging ??(AJCC, 7th ed., 2009): Primary tumor stage: ?pT1a [IA] (Tumor limited to endometrium or ? invades less than 1/2 of myometrial ? width) Regional lymph nodes: ? pN0 ??(No regional lymph node metastases) Distant metastasis: ? pMX ??(Not applicable or not assessed) CR-0 04/10/10 JLG 04/10/10 Verified by: ? Piero Antunez MD ?Pathologist ?(Electronic Signature) The attending pathologist whose signature appears on this report has reviewed all diagnostic slides and has edited the gross and/or microscopic portion of the report in rendering the final pathologic diagnosis. . Comment ?? The entire endometrial fundus and lower uterine segment were submitted for histologic evaluation. The majority of the carcinoma appears to have been removed by the original endometrial curettage (see [id number]). A single 3.0 millimeter focus of residual non-invasive, low-grade endometrial carcinoma is identified in the hysterectomy specimen (section A8). ? Pathology Frozen Section Report Frozen Section Report AFS - Uterus, bilateral fallopian tubes and ovaries: ?No gross evidence of an endometrial tumor; ?(gross intraoperative consultation; no frozen ? sections taken). - [facility] 04/04/10 09:30 04/04/10 ??Verified by: ??Piero Antunez MD, Pathologist The attending pathologist whose electronic signature appears on this report has reviewed all diagnostic slides in rendering the frozen section diagnosis. This intraoperative consultation should be interpreted as a preliminary diagnosis pending review of the entire specimen and special studies, if any. [facility] 04/04/2010 9:22 AM EDT Nessa Sen MD PATHOLOGY/CYTOLOGY O RDANTONIO Performing Organization Address City/State/[facility] Co ga Phone Number [facility] documented in this encounter Visit Diagnoses Not on filedocumented in this encounter Care Teams Manager Summer Relationship Specialty Start Date End Date Ana Dwyer MD [address] [place] [address] PCP - General Family Medicine 10/30/17 documented as of this encounter
--- OUTSIDE RECORDS SUMMARY | 2024-09-30 01:27 | XMS_ITS | Referral Summary ---
Author Organization [facility] Address [address] [place] [address] Care Team Providers Care Clinical Appeals Rn Name Role Phone Danette Nam BAND TACKER Primary Care Provider [phone] Social History Tobacco Use Types Packs/Day Years Used Date Smoking Tobacco: Never Assessed Comments Unknown Sex and Gender Information Value Date Recorded Sex Assigned at Not on file Legal Sex Female 18:25 EST Gender Identity Not on file Sexual Orientation Not on file Plan of Treatment Not on file Care Teams Clinical Appeals Rn Relationship Specialty Start Date End Date Danette Nam, BAND TACKER [facility] [address] [place], [place] [address] PCP - General 02/08/10
--- OUTSIDE RECORDS SUMMARY | 2024-09-30 01:27 | XMS_ITS | Encounter Summary ---
Author Organization [facility] [place] [address] Care Team Providers Care Bee Producer Name Role Phone Ana Dwyer MD Primary Care Provider [phone] Encounter Details Date Type Department Care Team (Late st Contact Info) Description 04/04/2010 Orders Only Gyne[place] [address] Nessa Sen MD Social History Tobacco Use Types Packs/Day Years Used Date Smoking Tobacco: Never Assessed Sex and Gender Information Value Date Recorded Sex Assigned at Not on file Gender Identity Not on file Sexual Orientation Not on file documented as of this encounter Plan of Treatment Not on file documented as of this encounter Procedures Procedure Name Priority Date/Time Associated Diagnosis Comments NON-CLINICAL OPERATIONS SPECIALIST FINAL REPORT Routine 04/04/2010 9:01 AM EDT documented in this encounter Results * Non-Wire Frame Dipper Final Report (04/04/2010 9:01 AM EDT) Non-Wire Frame Dipper Final Report [id number] ? Location: [facility]; [facility]; The signing pathologist has (i) examined the relevant preparation(s) for the specimen(s) and (ii) rendered or confirmed the diagnosis(es). . ? Pathology Non-Wire Frame Dipper Cytology Final Report Clinical Information Specimen Source: ?Peritoneal Washing Clinical History/Impression : ?? Endometrial cancer. Gross Description: ?? Received ??fresh, approximately 75 ml. total volume of ?? cloudy, pink fluid. ?? Total Preparation: Liquid Based Prep 1. Interpretation Specimen submitted is satisfactory. Diagnosis Negative for Malignancy 04/05/10 ?Screened by: ? FMQ ?Rescreened by: ?? RAMIRO,AMARILYSG 04/05/10 ?Verified by: ? Hal YAÑEZ, Fabrice Mckay ? Cytopathologist ? (Electronic Signature) Comment Clusters of mesothelial cells are present. ELAINA DIAZ 04/04/2010 9:01 AM EDT Nessa Sen MD PATHOLOGY/CYTOLOGY O RDERABLES ELAINA DIAZ documented in this encounter Visit Diagnoses Not on filedocumented in this encounter Care Teams Bee Producer Relationship Specialty Start Date End Date Ana Dwyer MD [address] [place] [address] PCP - General Family Medicine 10/30/17 documented as of this encounter
--- OUTSIDE RECORDS SUMMARY | 2024-09-30 01:27 | XMS_ITS | Encounter Summary ---
Author Organization [facility] Address [facility] [place] [address] Care Team Providers Care Promotions Producer Name Role Phone Ana Dwyer MD Primary Care Provider [phone] Encounter Details Date Type Department Care Team (Latest Contact Info) Description 02/11/2018 - 02/11/2018 11:59 PM EDT Hospital Encounter Radiology Library at [facility] [place] [id number] Chavez Doratnes MD [facility] [place] [address] Discharge Disposition: Home Social History Tobacco Use Types Packs/Day Years Used Date Smoking Tobacco: Former Sex and Gender Information Value Date Recorded Sex Assigned at Not on file Gender Identity Not on file Sexual Orientation Not on file documented as of this encounter Medications at Time of Discharge Medication Sig Dispensed Refills Start Date End Date ibuprofen (ADVIL;MOTRIN) 600 mg tablet 600 MG = 1 Tablet(s), PO, Q6H 04/23/2010 docusate sodium (COLACE) 100 mg capsule 100 MG = 1 Capsule(s), PO, Twice daily,PRN 04/23/2010 buPROPion (WELLBUTRIN SR) 150 mg 12 hr tablet 04/23/2010 02/23/20 18 loperamide (IMODIUM A-D) 2 mg tablet 04/23/2010 02/26/2018 meclizine (ANTIVERT) 25 mg tablet 04/23/2010 02/26/2018 documented as of this encounter Plan of Treatment Not on file documented as of this encounter Procedures Procedure Name Priority Date/Time Associated Diagnosis Comments FILM LIBRARY STORAGE ONLY CT CHEST Routine 02/11/2018 12:00 AM EDT documented in this encounter Results * Film Library- Storage Only CT Chest (02/11/2018 12:00 AM EDT) Narrative [facility] - 02/22/2018 3:18 PM EDT This exam is for storage only and is auto-finalizing. Chavez Dorantes MD IMG FILM LIBRARY ORD ERABLES [place], [place] documented in this encounter Visit Diagnoses Not on filedocumented in this encounter Care Teams Promotions Producer Relationship Specialty Start Date End Date Ana Dwyer MD [address] [place] [address] PCP - General Family Medicine 10/30/17 documented as of this encounter
--- OUTSIDE RECORDS SUMMARY | 2024-09-30 01:27 | XMS_ITS | Encounter Summary ---
Author Organization [facility] Address [address] [place] [address] Care Team Providers Care Machine Clerical Verifier Name Role Phone Danette Mack CONSULTING TECHNICAL DIRECTOR Primary Care Provider [phone] Encounter Details Date Type Department Care Team (Late st Contact Info) Description 07/19/2014 Results Only [facility] Laboratory Services - [facility] [place] [address] [place] [phone] Teodora Fang MD [address] [place] [address] [place] [address] Social History Tobacco Use Types Packs/Day Years [...] Procedure Name Priority Date/Time Associated Diagnosis Comments PAP TEST- RESULT ONLY Routine 07/19/2014 0:00 EST documented in this encounter Results * PAP TEST- RESULT ONLY (07/19/2014 0:00 EST) Pathology Report: CYTOPATHOLOGY REPORT Reports generated via electronic interface contain original data; however they are lacking the format of the original report. Caution should be taken when reading/interpreti ng unformatted reports. Name: ? DANETTE GEORGE ? Accession #: ? [id number] : ? 1940 (Age: 73) ??F ?Collect Date: ? 07/19/2014 Location: ? [facility] ? Receive Date: ? 07/20/2014 Provider: ?TEODORA FANG MD Copy to: ?DANETTE MACK CONSULTING TECHNICAL DIRECTOR ? Specimen/Source: ?Pap Test, Cervix/Endocervix, ThinPrep Imaging System with manual evaluation Last Menstrual Period: ? Previous Gynecologic Pathology: ? Adenocarcinoma: H/o Treatment History: ? Miscellaneous treatment: [facility] 04/09 ? SPECIMEN ADEQUACY ? Satisfactory for Evaluation - assessment of transformation zone component not applicable ( e.g. atrophy, vaginal sample, hysterectomy) GENERAL CATEGORIZATION ? Negative for Intraepithelial Lesion or Malignancy ? Document reviewed and electronically signed by: ? MACY Casper(ASCP) ? Report Date: ??07/26/2014 10:48 End of Report [facility] 07/19/2014 07/20/2014 us Teodora Fang MD PATHOLOGY ORDERABLES Final Resu lt [facility] [address] [place] [address] documented in this encounter Visit Diagnoses Not on filedocumented in this encounter Care Teams Machine Clerical Verifier Relationship Specialty Start Date End Date Danette Mack NP [facility] [address] [place], [place] [id number] PCP - General 02/08/10 documented as of this encounter
--- OUTSIDE RECORDS SUMMARY | 2024-09-30 01:27 | XMS_ITS | Encounter Summary ---
Author Organization [facility] Address [address] [place] [address] Care Team Providers Care Electrical Products Sales Engineer Name Role Phone Danette Nam VB NET DEVELOPER Primary Care Provider [phone] Encounter Details Date Type Department Care Team (Late st Contact Info) Description 01/10/2022 Lab Requisition [facility] Pathology & Laboratory Medicine - [address] [address] Outr Resulting Lab, Provider Social History Tobacco [...] Procedure Name Priority Date/Time Associated Diagnosis Comments FOLATE Routine 01/09/2022 10:25 EDT FERRITIN Routine 01/09/2022 10:25 EDT documented in this encounter Results * FERRITIN (01/09/2022 10:25 EDT) Ferritin 14 10 - 291 ng/mL 01/10/2022 18:[address] [facility] Blood VENOUS BLOOD / Unknown 01/09/2022 10:25 EDT 01/10/2022 17:17 EDT us Provider Outr Resulting Lab CHEMISTRY & BLOOD GA S ORDERABLES Final Result Performing Organization Address City/State/[facility] Co de Phone Number [facility] [address] [place] [address] * FOLATE (01/09/2022 10:25 EDT) Folate 5.7 See Note ng/mL 01/10/2022 18:[address] [facility] Comment: Reference Ranges for Folate: Deficient: ?< 3.4 ng/mL Indeterminate: ??3.4 - 5.4 ng/mL Normal: ? > 5.4 ng/mL The results of this assay can be falsely elevated due to the consumption of Biotin. Blood VENOUS BLOOD / Unknown 01/09/2022 10:25 EDT 01/10/2022 17:17 EDT us Provider Outr Resulting Lab CHEMISTRY & BLOOD GA S ORDERABLES Final Result Performing Organization Address [facility] Co de Phone Number [facility] [address] [place] [address] documented in this encounter Visit Diagnoses Not on filedocumented in this encounter Additional Health Concerns Infection Onset Date Last Indicated Resolved Time RSV 08/04/2022 08/04/2022 08/14/2022 22:1 5 EST documented as of this encounter Care Teams Electrical Products Sales Engineer Relationship Specialty Start Date End Date Danette Nam NP [facility] [address] [place] [address] PCP - General 02/08/10 documented as of this encounter
--- OUTSIDE RECORDS SUMMARY | 2024-09-30 01:27 | XMS_ITS | Encounter Summary ---
Author Organization [facility] [place] [address] Care Team Providers Care Selling Specialist Name Role Phone Cyril Danette Willis APRN Primary Care Provider [phone] Reason for Visit * Reason Comments Skin Check Encounter Details Date Type Department Care Team (Late st Contact Info) Description 01/27/2013 10:30 AM EDT Office Visit Dermatology [address] [place], [place] [id number] Silas Lockett MD [address], [place] [address] Seborrheic keratosis (Primary Dx) Social History Tobacco Use Types Packs/Day Years Used Date Smoking Tobacco: Former Sex and Gender Information Value Date Recorded Sex Assigned at Not on file Gender Identity Not on file Sexual Orientation Not on file documented as of this encounter Progress Notes * Silas Lockett MD - 01/27/2013 11:32 AM EDT Problem: Skin check. Danette follows up after last being seen in July of 2011. She has some new lesions of concern. She is referred back by Danette Nam. She reminds me that she had a fair amount of sun growing up and used to put baby oil and iodine on her skin to try to artis, which of course she never did; she only ever burned. Physical examination reveals a pleasant 72-year-old woman who has a benign examination the head and the neck, the chest and back, hands, arms, forearms, thighs, and calves. She does have prominence now of some right forehead vasculature and of the underlying cranium, because of cutaneous and subcutaneous atrophy, commensurate with her age. 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 It is about a centimeter and a half in diameter. She has benign-appearing melanocytic nevi and ephelides on the arms, back, upper chest, and her legs. She has several seborrheic keratoses, one on the left flank below the bra strap and a couple additional sites on the mid central back. Assessment and Plan: 1. Benign skin examination, commensurate with patient's age and history of moderate solar damage. a. No evidence of actinic keratoses or nonmelanoma or melanoma cutaneous malignancies. b. Reinforced sun avoidance precautions, which patient is following. c. Reassured her about her solar lentigo on the left lateral jawline, and reassured her about other cutaneous findings today. d. Recommend I see her back on a p.r.n. basis for any new skin lesions/concerns. COPY: Danette Nam NP documented in this encounter Plan of Treatment Not on file documented as of this encounter Visit Diagnoses Diagnosis Seborrheic keratosis- Primary Other seborrheic keratosis documented in this encounter Care Teams Selling Specialist Relationship Specialty Start Date End Date Danette Nam APRN PCP - General 07/23/10 10/29/17 documented as of this encounter
--- OUTSIDE RECORDS SUMMARY | 2024-09-30 01:27 | XMS_ITS | Encounter Summary ---
Author Organization [facility] Address [facility] [place] [address] Care Team Providers Care Banbury Machine Operator Name Role Phone Ana Dwyer MD Primary Care Provider [phone] Encounter Details Date Type Department Care Team (Latest Contact Info) Description 02/21/2018 - 02/21/2018 11:59 PM EDT Hospital Encounter Radiology Library at [facility] [place] [phone] Chavez Dorantes MD [facility] [place] [address] Discharge Disposition: Home Social History Tobacco Use [...] Associated Diagnosis Comments FILM LIBRARY STORAGE ONLY DX CHEST Routine 02/21/2018 12:00 AM EDT documented in this encounter Results * Film Library- Storage Only DX Chest (02/21/2018 12:00 AM EDT) Narrative [facility] - 02/22/2018 3:18 PM EDT This exam is for storage only and is auto-finalizing. Chavez Dorantes MD IMG FILM LIBRARY ORD ERABLES [place], [place] documented in this encounter Visit Diagnoses Not on filedocumented in this encounter Care Teams Banbury Machine Operator Relationship Specialty Start Date End Date Ana Dweyr MD [address] [place] [address] PCP - General Family Medicine 10/30/17 documented as of this encounter
--- OUTSIDE RECORDS SUMMARY | 2024-09-30 01:27 | XMS_ITS | Encounter Summary ---
Author Organization [facility] Address [address] [place] [address] Care Team Providers Care Shuttle Route Vehicle Operator Name Role Phone Danette Nam ANDROID IOS DEVELOPER Primary Care Provider [phone] Encounter Details Date Type Department Care Team (Late st Contact Info) Description 03/09/2012 Results Only [facility] Laboratory Services - [facility] ([facility] [address] [place] [phone] Teodora Fang MD [address] [place] [address] [place] [address] Social History Tobacco Use Types Packs/Day Years [...] Diagnosis Comments PAP TEST- RESULT ONLY Routine 03/09/2012 0:00 EDT documented in this encounter Results * PAP TEST- RESULT ONLY (03/09/2012 0:00 EDT) Pathology Report: CYTOPATHOLOGY REPORT Reports generated via electronic interface contain original data; however they are lacking the format of the original report. Caution should be taken when reading/interpreti ng unformatted reports. Name: ? DORISDANETTE ? Accession #: ? [id number] : ? 1940 (Age: 71) ??F ?Collect Date: ? 03/09/2012 Location: ? [facility] ? Receive Date: ? 03/10/2012 Provider: ?TEODORA FANG MD Copy to: ? Specimen/Source: ?Pap Test, Vagina, ThinPrep Imaging System with manual evaluation Last Menstrual Period: ? Previous Gynecologic Pathology: ? Adenocarcinoma Treatment History: ? Miscellaneous treatment: [facility] for Adenocarin[facility] 04/09 ? SPECIMEN ADEQUACY ? Satisfactory for Evaluation - assessment of transformation zone component not applicable ( e.g. atrophy, vaginal sample, hysterectomy) GENERAL CATEGORIZATION ? Negative for Intraepithelial Lesion or Malignancy ? Document reviewed and electronically signed by: ? Camila Bain, CULLEN(ASCP) ? Report Date: ??03/12/2012 09:05 End of Report [facility] 03/09/2012 03/10/2012 us Teodora Fang MD PATHOLOGY ORDERABLES Final Resu lt [facility] [address] [place] [address] documented in this encounter Visit Diagnoses Not on filedocumented in this encounter Care Teams Shuttle Route Vehicle Operator Relationship Specialty Start Date End Date Danette Nam NP [facility] [address] [place] [address] PCP - General 02/08/10 documented as of this encounter
--- OUTSIDE RECORDS SUMMARY | 2024-09-30 01:27 | XMS_ITS | Encounter Summary ---
Author Organization [facility] Address [address] [place] [address] Care Team Providers Care Boat Worker Name Role Phone Unavailable Primary Care Provider Unavailabl e Encounter Details Date Type Department Care Team (Late st Contact Info) Description 09/29/2002 Results Only [facility] conversion [address] [place] [address] Mike Castillo MD [address] [place] [phone] Social History Tobacco Use Types Packs/Day Years [...] Date/Time Associated Diagnosis Comments SURGICAL PATHOLOGY Routine 09/29/2002 0:00 EST documented in this encounter Results * SURGICAL PATHOLOGY (09/29/2002 0:00 EST) Pathology Report: SURGICAL PATHOLOGY REPORT Reports generated via electronic interface contain original data; however they are lacking the format of the original report. Caution should be taken when reading/interpreti ng unformatted reports. Name: ? DANETTE GEORGE ? Accession #: ? [id number] ? : ? 1940 (Age: 62) ??F ? Collect Date: ? 09/29/2002 ? Location: ? [facility] ? Receive Date: ? 09/29/2002 ? Provider: YOSVANY CASTILLO MD Copy to: DANETTE AN MD ? Final Pathologic Diagnosis: A. ?Colon, mid transverse, biopsy: 1. ?Colonic mucosa with no pathologic features. B. ?Colon, rectum, biopsy: 1. ?Slightly hyperplastic fragment of rectal mucosa. Document reviewed and electronically signed by: Farrukh Tabares MD Report ??Date: 10/03/2002 17:38 By the signature above, the attending physician certifies that he/she has personally conducted a gross and/or microscopic examination of the described specimens and rendered or confirmed the above diagnosis. Specimen(s) Received: A. ?Bx mid transverse colon B. ?Rectum bx Clinical History: ? Diverticulosis; Hx colitis '97 Gross Description: ? Received in Hollande's fixative labelled Doris and biopsy mid transverse colon is a artis-pink 0.3 x 0.2 x 0.2 cm soft tissue fragment. ??The specimen is entirely submitted as (A). Received in Hollande's fixative labelled Doris and rectum bx is a artis-pink 0.3 x 0.2 x 0.2 cm soft tissue fragment. ??The specimen is entirely submitted as (B). (Joseph Dillard)/edr End of Report [facility] 09/29/2002 09/29/2002 9:1 9 EST us Mike Castillo MD PATHOLOGY ORDERABLES Final Res ult [facility] [address] [place] [address] documented in this encounter Visit Diagnoses Not on filedocumented in this encounter
--- OUTSIDE RECORDS SUMMARY | 2024-09-30 01:27 | XMS_ITS | Encounter Summary ---
Author Organization [facility] Address [address] [place] [address] Care Team Providers Care Online Communications Manager Name Role Phone Danette Nam ENGINEER SYSTEMS Primary Care Provider Encounter Details Date Type Department Care Team (Late st Contact Info) Description 05/04/2020 Lab Requisition [facility] Pathology & Laboratory Medicine - [address] [address] Outr Resulting Lab, Provider Social History Tobacco [...] Procedure Name Priority Date/Time Associated Diagnosis Comments LYME AB Routine 05/04/2020 10:37 EDT documented in this encounter Results * LYME AB (05/04/2020 10:37 EDT) Lyme Ab Negative Negative 05/07/2020 11:57 EDT [facility] Comment:New 3rd generation a ssay in use 02/08/2020 Blood VENOUS BLOOD / Unknown 05/04/2020 10:37 EDT 05/04/2020 21:40 EDT us Provider Outr Resulting Lab IMMUNOLOGY AND SEROL OGY ORDERABLES Final Result [facility] [address] [place] [address] documented in this encounter Visit Diagnoses Not on filedocumented in this encounter Additional Health Concerns Infection Onset Date Last Indicated Resolved Time RSV 08/04/2022 08/04/2022 08/14/2022 22:1 5 EST documented as of this encounter Care Teams Online Communications Manager Relationship Specialty Start Date End Date Danette Nam NP [facility] [address] [place] [address] PCP - General 02/08/10 documented as of this encounter
--- OUTSIDE RECORDS SUMMARY | 2024-09-30 01:27 | XMS_ITS | Encounter Summary ---
Author Organization [facility] Address [address] [place] [address] Care Team Providers Care Commissary Helper Name Role Phone Unavailable Primary Care Provider Unavailabl e Encounter Details Date Type Department Care Team (Late st Contact Info) Description 04/28/2000 Results Only [facility] conversion [address] [place] [address] Mike Castillo MD [address] [place] [phone] Social History Tobacco Use Types Packs/Day Years [...] Date/Time Associated Diagnosis Comments SURGICAL PATHOLOGY Routine 04/28/2000 0:00 EDT documented in this encounter Results * SURGICAL PATHOLOGY (04/28/2000 0:00 EDT) Pathology Report: SURGICAL PATHOLOGY REPORT Reports generated via electronic interface contain original data; however they are lacking the format of the original report. Caution should be taken when reading/interpreti ng unformatted reports. Name: ? DANETTE GEORGE ? Accession #: ? [id number] ? : ? 1940 (Age: 59) ??F ? Collect Date: ? 04/28/2000 ? Location: ? [facility] ? Receive Date: ? 04/28/2000 ? Provider: YOSVANY CASTILLO MD Copy to: PRASANNA AN MD ? Final Pathologic Diagnosis: A. ?Colon, 20 cm, polyp, biopsy: 1. ?Hyperplastic polyp. B. ?Rectum, 8 cm, polyp, biopsy: 1. ?Hyperplastic polyp. C. ?Rectum, 10 cm, polyp, biopsy: 1. ?Hyperplastic polyp. D. ?Rectum, 10 cm, polyp, biopsy: 1. ?Hyperplastic polyp. Document reviewed and electronically signed by: ARYA WOODWARD MD Report ??Date: 04/30/2000 17:33 By the signature above, the attending physician certifies that he/she has personally conducted a gross and/or microscopic examination of the described specimens and rendered or confirmed the above diagnosis. Specimen(s) Received: A. ?Colon polyp 20 cm (#1) B. ?Rectal polyp 8 cm (#2) C. ?Rectal polyp 10 cm (#3) D. ?Rectal polyp 10 cm (#4) Clinical History: ? Hx of colitis and tubular adenoma of rectum ??four small polyps found Gross Description: ? Received in Hollande' s fixative labelled Doris and #1 20 cm colon polyp are three roughly ovoid artis-white fragments of soft tissue ranging in size from 0.3 x 0.2 x 0.2 cm to 0.7 x 0.4 x 0.3 cm. ??The surgical resection margins are not grossly discernible. ??The three fragments of soft tissue are submitted entirely as (A). Received in Hollande' s fixative labelled Doris and #2 rectal polyps 8 cm are three roughly ovoid artis-white pieces of soft tissue measuring 0.2 x 0.2 x 0.1 cm, 0.4 x 0.3 x 0.2 cm, and 0.5 x 0.4 x 0.3 cm. ??The surgical resection margin on one polypoid lesion is grossly discernible and is black inked. ??The three pieces of tissue are submitted entirely as (B). Received in Hollande' s fixative labelled Doris and rectal polyp 10 cm is a artis-white polypoid piece of tissue measuring 0.4 x 0.3 x 0.2 cm. ??The surgical resection margin is not grossly discernible. ??The specimen is bisected and submitted entirely as (C). Received in Hollande' s fixative labelled Doris and #4 rectal polyps 10 cm are two artis-white ovoid pieces of soft tissue measuring 0.3 x 0.2 x 0.1 cm and 0.4 x 0.3 x 0.1 cm. ??The two pieces of tissue are submitted entirely as (D). ??(Dr. Luna-NC)/cammie End of Report [facility] 04/28/2000 04/28/2000 15: 55 EDT us Mike Castillo MD PATHOLOGY ORDERABLES Final Res ult [facility] [address] [place] [address] documented in this encounter Visit Diagnoses Not on filedocumented in this encounter
--- OUTSIDE RECORDS SUMMARY | 2024-09-30 01:27 | XMS_ITS | Encounter Summary ---
Author Organization [facility] Address [address] [place] [address] Care Team Providers Care Wafer Abrading Machine Tender Name Role Phone Danette Mack CHIEF DESIGN BRANCH Primary Care Provider [phone] Encounter Details Date Type Department Care Team (Late st Contact Info) Description 02/09/2013 Results Only [facility] - [facility] ([facility] [address] [place] [phone] Teodora Fang MD [address] [place] [address] [place] [address] Social History Tobacco Use Types Packs/Day Years [...] Diagnosis Comments PAP TEST- RESULT ONLY Routine 02/09/2013 0:00 EDT documented in this encounter Results * PAP TEST- RESULT ONLY (02/09/2013 0:00 EDT) Pathology Report: CYTOPATHOLOGY REPORT Reports generated via electronic interface contain original data; however they are lacking the format of the original report. Caution should be taken when reading/interpreti ng unformatted reports. Name: ? NATALYDANETTE Rodriguez ? Accession #: ? [id number] : ? 1940 (Age: 72) ??F ?Collect Date: ? 02/09/2013 Location: ? [facility] ? Receive Date: ? 02/10/2013 Provider: ?TEODORA FANG MD Copy to: ?DANETTE MACK CHIEF DESIGN BRANCH ? Specimen/Source: ?Pap Test, Vagina, ThinPrep Imaging System with manual evaluation Last Menstrual Period: ? Previous Gynecologic Pathology: ? Endometrial adenocarcinoma: past history ? SPECIMEN ADEQUACY ? Satisfactory for Evaluation - assessment of transformation zone component not applicable ( e.g. atrophy, vaginal sample, hysterectomy) GENERAL CATEGORIZATION ? Negative for Intraepithelial Lesion or Malignancy ? Document reviewed and electronically signed by: ? Danette Miles, SCT(ASCP) ? Report Date: ??02/17/2013 12:48 End of Report [facility] 02/09/2013 02/10/2013 us Teodora Fang MD PATHOLOGY ORDERABLES Final Resu lt [facility] [address] [place] [address] documented in this encounter Visit Diagnoses Not on filedocumented in this encounter Care Teams Wafer Abrading Machine Tender Relationship Specialty Start Date End Date Danette Mack, CHIEF DESIGN BRANCH [facility] [address] [place] [address] PCP - General 02/08/10 documented as of this encounter
--- OUTSIDE RECORDS SUMMARY | 2024-09-30 01:27 | XMS_ITS | Encounter Summary ---
Author Organization [facility] Address [address] [place] [id number] Care Team Providers Care Body Specialist Name Role Phone Danette Nam SPECIAL OFFICER Primary Care Provider [phone] Encounter Details Date Type Department Care Team (Late st Contact Info) Description 05/27/2011 Results Only [facility] - [facility] [place] [place] [address] [place] [address] [phone] Teodora Fang MD [address] [place] [address] [place] [address] Social History Tobacco Use Types Packs/Day Years [...] Diagnosis Comments PAP TEST- RESULT ONLY Routine 05/27/2011 0:00 EDT documented in this encounter Results * PAP TEST- RESULT ONLY (05/27/2011 0:00 EDT) Pathology Report: CYTOPATHOLOGY REPORT ? Reports generated via electronic interface contain original data; ? however they are lacking the format of the original report. ? Caution should be taken when reading/interpreti ng unformatted reports. ? Name: ? DANETTE GEORGE ? Accession #: ? [id number] ? : ? 1940 (Age: 70) ??F ?Collect Date: ? 05/27/2011 ? Location: ? [facility] ? Receive Date: ? 05/28/2011 ? Provider: ?TEODORA BRIAN MD ? Copy to: ? Specimen/Source: ?Pap Test, Vagina, ThinPrep Imaging System with manual ?? evaluation ? Last Menstrual Period: ? at age 53 ? Previous Gynecologic Pathology: ? Adenocarcinoma: 6/9/10 H/O endometriod type F1G0 grade 1 ? Treatment History: ? Hysterectomy ? SPECIMEN ADEQUACY ? Satisfactory for Evaluation ? - assessment of transformation zone component not applicable ( e.g. atrophy, ? vaginal sample, hysterectomy) ? GENERAL CATEGORIZATION ? Negative for Intraepithelial Lesion or Malignancy ? Document reviewed and electronically signed by: ? Danette BLea Miles, SCT(ASCP) ? Report Date: ??06/03/2011 15:15 ? End of Report ? [facility] 05/27/2011 05/28/2011 us Teodora Fang MD PATHOLOGY ORDERABLES Final Resu lt [facility] [address] [place] [address] documented in this encounter Visit Diagnoses Not on filedocumented in this encounter Care Teams Body Specialist Relationship Specialty Start Date End Date Danette Nam, [place] [address] [place], [place] [id number] PCP - General 02/08/10 documented as of this encounter
--- OUTSIDE RECORDS SUMMARY | 2024-09-30 01:27 | XMS_ITS | Encounter Summary ---
Author Organization [facility] Address [facility] [place] [address] Care Team Providers Care Fire Claims Adjuster Name Role Phone Ana Dwyer MD Primary Care Provider [phone] Reason for Visit * Auth/Cert Specialty Diagnoses / Procedures Referred By Contac t Referred To Contact Diagnoses NSTEMI (non-ST elevated myocardial infarction) NSTEMI Referral ID Status Reason Start Date Expiration Date Visits Re quested Visits Authorized [id number] 1 1 Encounter Details Date Type Department Care Team (Late st Contact Info) Description 02/25/2018 10:00 AM EDT - 02/25/2018 11:00 AM EDT Surgery [place] [id number] Mc Magana MD [facility] [place] [address] CARDIAC CATHETERIZATION Social History Tobacco Use Types Packs/Day Years Used Date Smoking Tobacco: Former Cigarettes 1 63 0 [birth year]/1955 - 02/23/2018 Smokeless Tobacco: Never Tobacco Cessation:Counseling Given: Yes Comments:Received tobacco cessation consult. NRT ordered. Given [facility] Tobacco Treatment packet Alcohol Use Standard Drinks/Week [...] Danette George Patient Age: 77 y.o. Language: Maltese Race: White Ethnicity: Not nor Admit date: [...] please contact your inpatient physician through the [facility] Button Inspector . Issues afterhours and on weekends will [...] Pain (on Narcotic Therapy) who presented to [facility] with dyspnea and cough, found to have [...] ASCVD (noted on OSH records - alleged [facility] in 1996), the patient states that, I can't quite remember; I don't remember any of that. She is unsure if she has previously met witha Adobe Ball Mixer or had any prior cardiac work-up. ?? While at the OSH ([facility]), the patient was treated for presumed COPD [...] inferolateral Q-waves; unchanged from prior tracing in 2012. T-wave flattening isolated in aVL. She has [...] noted above, Ms. George was transferred to [facility] from [facility] following an elevation in cardiac enzymes. On [...] started the day prior to admission at [facility] and included a 40 mg dose of prednisone, one day of levofloxacin therapy, and qtlezh-hvq-viwxb nebulizer treatments (ipratropium- albuterol Duoneb). At [facility] she was placed on oxygen therapy by [...] Recent Labs 02/26/18 0555 02/25/18 0457 02/24/18 05 NA 140 138 136 K 3.8 3.5 [...] MV E-wave Vmax 0.6 m/sec MV deceleration mszd266.9 msec MV A-wave Vmax 1.1 m/sec MV [...] Normal Mid-Posterolateral Normal Mid-Inferior Normal Mid-Inferoseptal Normal [place]-Septal Akinetic [place]-Anterior Akinetic [place]-Lateral Akinetic [place]-Inferior Akinetic [place]-Tip Akinetic ?? This report has been electronically signed by: ?? Ramakrishna Toure MD 02/23/2018 11:37:21 Images reviewed and interpretation verified [facility] Cardiac Ultrasound Laboratory Cardiac Catheterization 02/25: [...] present for the entire procedure. ? Dr. Mc Magana M.D. was present during the moderate sedation intraservice time as documented by the sedation nurse. Case time = 00:20. ? Dr. Mc Magana M.D. performed the coronary angiography and left heart catheterization. ? Mc Magana M.D. ? Electronically Signed by: Mc Magana M.D. Pending Studies and Lab Data: None Discharge Conditions/Prognosis: Stable condition, fair prognosis Discharge to: [facility] in [place], [place] Updated Allergies/ADRs: Allergies Allergen Reactions ??? [...] Received tobacco cessation consult. NRT ordered. Given [facility] Tobacco Treatment packet Instructions Given to Patient at Discharge: Patient Instructions Patient Instructions on Discharge to [facility] Facility Why you were hospitalized - You [...] Dwyer on 03/04/18 at 09:[address] Adobe [address] Mixer [address] Russ at [facility] on 04/26/18 at 1:00 PM. General [...] Future Orders Complete By Expires Referral to [facility] [[id number] Custom] As directed Process Instructions: If no progress note charted, please enter Clinical details in comments. Scheduling Instructions: Questions: My question or request is: Tobacco Cessation Patient consented to referral to Quitline?: Yes Discharge References/Attachments SMOKING: STOPPING (BENINESE) SMOKING: ANTI-SMOKING MEDICATION: DECIDING ABOUT (BENINESE) SMOKING CESSATION: HEALTH BENEFITS: GENERAL INFO (BENINESE) documented in this encounter Discharge Instructions * [...] PM EDT Patient Instructions on Discharge to [facility] Facility Why you were hospitalized - You [...] Dwyer on 03/04/18 at 09:[address] [employer] [address]er [address] Russ at [facility] on 04/26/18 at 1:00 PM. * Attachments The following attachments cannot be sent through Care Everywhere. * SMOKING: STOPPING (BENINESE) * SMOKING: ANTI-SMOKING MEDICATION: DECIDING ABOUT (BENINESE) * SMOKING CESSATION: HEALTH BENEFITS: GENERAL INFO (BENINESE) documented in this encounter Medications at Time [...] with patient to rehab. Ride home via [facility] medicaid ride. IV plan to remove prior to discharge. * Aisha Cummins RN - 02/26/2018 12:39 PM EDT Office of Care Management/Kitchen Supervisor Patient Name: Danette George : 1940 Patient has been offered a snf bed at [facility] for today. DIRECTOR OF PSYCHIATRY arranging medicaid ride for around 3:30. No MD to MD report necessary Please call Nursing Report to , ask for taxicab coordinator. Info to accompany patient: Narcotic Prescriptions Copies of Medication Administration Records and IV sheets for past 10 days. Plan: Kitchen Supervisor will be available to the patient and Parimutuel Cashier-RN and/or Social Workerfor further assistance. Patient will be discharged to: [facility] [address] [place] [id number] AISHA CUMMINS RN, Kitchen Supervisor * Dnaette Juan RN - 02/26/2018 12:36 PM EDT OFFICE OF CARE MANAGEMENT CONTRACT TECHNICAL WRITER PROGRESS NOTE RN-CM met with patient at bedside to confirm the d/c plan for today. Patient has [facility]. 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 Her daughters work at [facility] right across the street and come and visit her. MATTI is organizing d/c ride with [facility] for 3/3:30 pm today, still waiting confirmation from [facility]. RN-CM tried to call both daughters, with patient's permission, to update family on d/c plans for today. Jayla George, and Mignon Rooney, , left message and contact information on their voice mails. ADDENDUM: patient's daughter Jayla George called outsole caser at 2:10 pm for d/c plan update. She was happy with rehab placement and family estimates that their mother will arrive at rehab around 4:30 pm. Plan: CM will continue to follow for coordination of care and to facilitate discharge planning. CM Danette Juan RN, BS, pager [phone] * Nikita Flores MSW - 02/26/2018 12:32 PM EDT RCT to Collect patient from [facility] at 3pm and transport to [facility] rehab * Margaret Vazquez - 02/26/2018 9:07 AM EDT Tenderizer Tender Encounter Note Patient Name: Danette George : [id number] MR#: [id number] Admit Date: 02/22/2018 4:00 PM Hospital Day [...] and chronic pain who was transferred from [facility] with NSTEMI. Principal Problem: Type II NSTEMI [...] SpO2: [91 %-97 %] Oxygen: 3L/min by ME Intake/Output Summary (Last 24 hours) at 02/26/18 [...] QTC Calculated (Bezet) 388 ms Calculated P Stock[place] 76 degrees Calculated R Stock[place] 4 degrees Calculated T [place] 0 degrees INTERPRETATION Sinus bradycardia Cannot rule out Inferior infarct (cited on or before 25-FEB-2018) Abnormal ECG When compared with ECG of 25-FEB-2018 07:20, No significant change was found Confirmed by Earnest Chen MD ([id number]) on 02/26/2018 8:38:10 AM Imaging: CXR [...] for COPD exacerbation and was transferred to [facility] with elevated cardiac biomarkers. Regarding her COPD [...] 4:21 PM EDT OFFICE OF CARE MANAGEMENT CONTRACT TECHNICAL WRITER PROGRESS NOTE RN-JEANNINE met with patient at [...] discharge planning needs. I have provided the [facility], Office of Care Management letter from the Hide And Skin Classer pertaining to rehab referrals. I have also provided a letter describing our affiliations within the [facility] and educatedthem about their right to choose where referrals are placed. ?? I reviewed the different levels of rehab including SNF, swing, acute and LTAC with the patient/underwriting sales representative. ?? The patient/underwriting sales representative has been provided a list of facilities within their preferred geographic area. ?? I have requested that the patient/underwriting sales representative provide at least three choices for referral. ?? The patient have requested referrals to: 1. [facility] (Swing) (1st choice) [address] [place], [place] [id number] 2. [facility] [place] [address] [place] [address] ?? [phone] ?? Expected date of discharge: patient will be medically ready for d/c on Thursday. Note routed to Kitchen Supervisor who will communicate referrals to facilities and provide any required information. Plan: CM will continue to follow for coordination of care and to facilitate discharge planning. 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 Will follow up post cath. Lyn Steward PTA Pager# [phone] * Margaret Vazquez - 02/25/2018 10:12 AM EDT Tenderizer Tender Encounter Note Patient Name: Danette George : [id number] MR#: [id number] Admit Date: 02/22/2018 4:00 PM Hospital Day [...] but she has not been involved in worship since a painful experience. Intervention and Outcome: [...] 3.4* 4.2 CL 101 98 97* CO2 27 25 BUN 8 8 12 CREATININE [...] and chronic pain who was transferred from [facility] with NSTEMI. Principal Problem: Type II NSTEMI [...] SpO2: [91 %-97 %] Oxygen: 3L/min by ME Intake/Output Summary (Last 24 hours) at 02/25/18 [...] QTC Calculated (Bezet) 410 ms Calculated P Stock[place] 54 degrees Calculated R Stockton 1 degrees Calculated T Stockton -11 degrees INTERPRETATION Normal sinus rhythm Inferior [...] for COPD exacerbation and was transferred to [facility] with elevated cardiac biomarkers. Regarding her COPD [...] SQH Disposition: ICCU Code Status: Full code Arsh Jose Jr, [...] MD, FACP, FACC Section of Cardiovascular Medicine [facility] Neon Sign Makermanager women [employer] [facility] This patient meets or has met medical criteria to require an inpatient level of care, i.e. a minimum of two midnights in the hospital with multiple complex problems. * Danette Juan RN - 02/24/2018 4:31 PM EDT OFFICE OF CARE MANAGEMENT CONTRACT TECHNICAL WRITER PROGRESS NOTE RN-CM met with patient at bedside to discuss the possible need for rehab at discharge. PT will evaluate. RN-CM called patient's daughter Jayla George, to give her update on possible d/c options, rehab versus home w/VNA? TBD. Patient has been declining cardiac cath, but may consent to cath tomorrow. Plan: CM will continue to follow for coordination of care and to facilitate discharge planning. JEANNINE Juan RN, BS, pager [phone] * Maryjo Fam RN - 02/24/2018 11:47 AM EDT 95% oxygen sat at rest. Ambulated approx 40ft, reporting shortness of breath, oxygen sats maintained between 88-95%, quickly increased to 95% with rest post walk. Team and CM aware, PT to assess later today. * Margaret Vazquez - 02/24/2018 10:17 AM EDT Tenderizer Tender Encounter Note Patient Name: Danette George : [id number] MR#: [id number] Admit Date: 02/22/2018 4:00 PM Hospital Day [...] nurse can page me. My pager is [phone]. Time in Direct Care: 20 minutes Margaret [...] SpO2: [94 %-98 %] Oxygen: 3L/min by ME Intake/Output Summary (Last 24 hours) at 02/24/18 [...] QTC Calculated (Bezet) 470 ms Calculated P [place] 43 degrees Calculated R [place] 3 degrees Calculated T [place]ton -33 degrees INTERPRETATION Normal sinus rhythm Inferior [...] for COPD exacerbation and was transferred to [facility] with elevated cardiac biomarkers, presumed NSTEMI. Her [...] Transdermal fentanyl #Tobacco Use - NRT Diet: [facility] Cardiac diet, NPO after [place] Prophylaxis: SQH Disposition: 4 east Code Status: Full code Arsh Jas Jose Jr, MD, PhD Internal Medicine Resident, [...] MD, FACP, FACC Section of Cardiovascular Medicine [facility] Neon Sign Makermanager women [employer] [facility] This patient meets or has met medical [...] and chronic pain who was transferred from [facility] with NSTEMI. Active Problems: NSTEMI (non-ST elevated [...] QTC Calculated (Bezet) 474 ms Calculated P [place] 66 degrees Calculated R [place] 12 degrees Calculated T [place] 24 degrees INTERPRETATION Normal sinus rhythm Normal [...] Negative mcL Appearance UA Clear Clear Spec [place] UA 1.010 1.002 - 1.030 Color UA [...] QTC Calculated (Bezet) 445 ms Calculated P [place] 77 degrees Calculated R [place] 0 degrees Calculated T [place] -23 degrees INTERPRETATION Normal sinus rhythm Inferior [...] and chronic pain who was transferred from [facility] with NSTEMI. At OSH, pt was treated for COPD exacerbation and was transferred to [facility] with elevated cardiac biomarkers, presumed NSTEMI. TTE [...] Tylenol - Citalopram 60 mg daily Diet: [facility] Cardiac diet Prophylaxis: heparin gtt Disposition: 4 [...] MD, FACP, FACC Section of Cardiovascular Medicine [facility] Neon Sign Makermanager women [employer] [facility] This patient meets or has met medical criteria to require an inpatient level of care, i.e. a minimum of two midnights in the hospital with multiple complex problems. * Jayla Briggs, PT - 02/23/2018 11:22 AM EDT [...] PCP: Ana Dwyer MD PCP phone #: [phone] ID/Chief Complaint: Ms. Danette George is a 77-year old female with a PMH of COPD, Vitamin B12 Deficiency, PTSD, Lung Nodule, Memory Loss, Depression, OA, Fibrocystic Breast Disease, MDD, OA, History of Colitis with prior LGIB, GERD, History of Colon Polyps and Chronic Pain (on Narcotic Therapy) who presented to [facility] with dyspnea and cough, found to have [...] Pain (on Narcotic Therapy) who presented to [facility] with dyspnea and cough, found to have [...] ASCVD (noted on OSH records - alleged [facility] in 1996), the patient states that, I can't quite remember; I don't remember any of that. She is unsure if she has previously met witha Adobe Ball Mixer or had any prior cardiac work-up. While at the OSH ([facility]), the patient was treated for presumed COPD [...] EtOH: 1-2 drinks/week Illicits: None Living Situation: [place], [place] Vocation: Retired Nurse Vitals: Last value [...] in the last 7068 hours. Invalid input(s): [id number] Heme: No results for input(s): LDH, HAPTOGLOBIN, [...] Pain (on Narcotic Therapy) who presented to [facility] with dyspnea and productive cough a/w purulent sputum product, found to have inferolateral WMA with cardiac biomarker elevation and subsequent transfer to [facility] for presumed NSTEMI (MIRIAN Score: 5; CITLALI [...] Admit to Cardiology, S2 Team Pager # [phone] # NSTEMI - NPO after MN for [...] follow - Metoprolol 12.5 mg q6H - [facility] Diet with 2 g Na restriction # Fibromyalgia - q6H PRN Tylenol - Avoid narcotics to lower delirium risk Other: - DVT prophylaxis: NONI. - GI prophylaxis: None indicated. - Home medications: See: Med Rec. - Diet: NPO (Give Meds) - Code Status: FULL CODE - Dispo: potentially Home with ALICE Jarquin MD PGY1 Internal Medicine Cardiology S2 - Pager: [phone] 02/22/2018 Associated attestation - Joel Leggett MD [...] MD, FACP, FACC Section of Cardiovascular Medicine [facility] Neon Sign Makermanager women [employer] [facility] This patient meets or has met medical criteria to require an inpatient level of care, i.e. a minimum of two midnights in the hospital with multiple complex problems. documented in this encounter Miscellaneous Notes * Plan of Care - Marques Mendoza RN - 02/26/2018 4:29 AM EDT Problem: Patient Care Overview Goal: Plan of Care Review Outcome: Ongoing (Interventions Implemented as Appropriate) 02/26/18 0413 Plan of Care Review Progress progress toward functional goals as expected Coping/Psychosocial Plan Of Care Reviewed With patient OUTCOME EVALUATION NOTE: OUTCOME SUMMARY: Pt had a good night. No complaints of CP or SOB. No reports of pain or discomfort this shift. Pt was given robitussin at 1999 and 0400 for cough, Right radial site [...] Handling Outcome: Ongoing (Interventions Implemented as Appropriate) 02/25/18 1127 02/25/18199902/26/18 0400 Dominguez Fall Risk History of Falling -- [...] CPG). Outcome: Ongoing (Interventions Implemented as Appropriate) 02/26/18418 Cardiac: ACS (Acute Coronary Syndrome) Problems Assessed (Acute Coronary Syndrome (ACS)) all Problems Present (Acute Coronary Syndrome (ACS)) none * Brief Op Note - Mc Magana MD - 02/25/2018 1:44 PM EDT Brief Operative Note Patient Name: Danette George : [id number] MR#: [id number] Case Date: 02/25/2018 Interventional Cardiologists: * Mc Magana MD - Primary * Tiffanie Arshad MD - Fellow-Interventional Procedure(s) performed: Coronary Angiography, Left Heart Cath Baseline Frailty Assessment: MANAGING WELL (3): Definitions from [place] Study of Health and Aging Clinical Frailty [...] without apparent complications. Full report to follow. MC MAGANA MD manager women Pager [phone] * Plan of Care - Dana Stevenson RN - 02/25/2018 7:00 AM EDT Problem: Patient Care Overview Goal: Plan of Care Review 02/24/18 1501 02/24/181951 Plan of Care Review Progress progress towards [...] Participants nursing;patient;physician * Plan of Care - Jayla Briggs, PT - 02/24/2018 4:01 PM EDT Physical Therapy Evaluation Pertinent History of Current Problem: 77 y.o. female with a PMH of COPD, vitamin B12 deficiency, PTSD, lung nodule, memory loss, OA, fibrocystic breast disease, MDD, colitis, GERD, and chronic pain who was transferred from OSH with NSTEMI. At OSH, pt was treated for COPD exacerbation and was transferred to [facility] with elevated cardiac biomarkers, presumed NSTEMI. Her [...] benefit from rehab to maximize functional independence) JAYLA BRIGGS, PT Pager: [phone] Inpatient Physical Therapy 02/24/18 1508 Rehab Evaluation Document Type evaluation Total Evaluation [...] for COPD exacerbation and was transferred to [facility] with elevated cardiac biomarkers, presumed NSTEMI. Her [...] Device RA Vision Assessment/Intervention Additional Documentation (Glasses multimedia authoring specialist) Cognitive Assessment/Intervention Additional Documentation (alert and orientated [...] Device (Bed Mobility) bed rails (HOB elevated.) Mtjdiu-cf-Sar [place] (Bed Mobility) contact guard assist Szk-ot-Moqijj [place] (Bed Mobility) contact guard assist Impairments (Bed Mobility) strength decreased Comment (Bed Mobility) slow with increased effort to get legs into bed. Transfer Assessment/Treatment [place] (Sit-Stand Transfers) contact guard assist [place] (Stand-Sit Transfers) contact guard assist Zab-Kumwp-Rfv Assistive Device (Transfers) rolling walker Impairments (Transfers) balance impaired;strength decreased Gait Assessment/Treatment [place] (Gait) contact guard assist Assistive Device (Gait) [...] to Achieve 2 wks Gait Training Goal, [place] Level conditional independence Gait Training Goal, Assist Device (Most appropriate device) Gait Training Goal, Distance to Achieve 100' (VSS) Transfer Training Goal Transfer Training Goal, Date Established 02/24/18 Transfer Training Goal, Time to Achieve 2 wks Transfer Training Goal, Activity Type qqw-mq-xjtdt/xnocw-pf-jbc Transfer Train Goal, [place] Level conditional independence Transfer Training Goal, Assist [...] Ongoing (Interventions Implemented as Appropriate) 02/23/18 1527 02/23/18 1930 Plan of Care Review Progress no change [...] Ongoing (Interventions Implemented as Appropriate) 02/23/18 1930 02/23/18 2200 Dominguez Fall Risk History of Falling [...] cath, team aware. SBA to BR. Adriana po well PLAN MOVING FORWARD: Per plan INDIVIDUALIZED FALL [...] patient and her two daughters at bedside, Jayla George & Mignon Rooney Introduced self/reviewed role; [...] home not completed. She appoints her daughter, Jayla George, [facility], , and daughter, Mignon [facility], [facility], Current Coping/Education/Information Needs: patient sitting up [...] Resources: support from her 4 adult children, Jayla, Mignon, Ken & Damon, most live close by [...] Received tobacco cessation consult. NRT ordered. Given [facility] Tobacco Treatment packet ??? Alcohol use None Other Pertinent/Service Specific Information: none Health/Prescription Coverage: Primary Insurance: MEDICARE [place] Secondary Insurance: MEDICAID [place] Prescription Coverage: yes, no financial concerns Preferred Pharmacy: ? Other: none Primary Care Provider: Ana Dwyer MD [phone] Patient/Caregiver Goals of Treatment: per medical team recommendations at discharge, patient has made a decision to stop smoking Potential Needs for Transition of Care: Rehab/SNF: no Home Health: possible VNA at d/c for med management & home safety eval with , [facility] covers patient's area DME: no Dialysis: no Community Resources: unknown Transportation: ride home with family Other: none Anticipated Barriers to Discharge/Special Considerations: none anticipated at this time Assessment: Admit for NSTEMI, was awaiting cardiac cath but patient has declined at this time, she is very anxious and afraid of procedure. MIKE-JEANNINE discussed cardiac cath procedure with patient to allay her fears. also discussed procedure with patient & her daughters. Plan: discharge to home when medically ready, possible need for VNA services at discharge. A member of the Care Management team will continue to monitor progress, follow for continuity of care and assist with transition of care planning. Danette Juan RN Pager: [phone] * Consult Note - Lester Ernst RN [...] PRN Angel Machado MD 5 mL at 02/23/18 0921 ??? gabapentin (NEURONTIN) capsule 600 mg 600 mg Oral Daily at Noon SobtiDewayne MD 600 mg at 02/23/18 1139 ??? metoprolol (LOPRESSOR) tablet 12.5 mg 12.5 mg Oral Q6H [facility] Angel Machado MD 12.5 mg at 02/23/18 1139 ??? acetaminophen (TYLENOL) tablet 650 mg 650 mg Oral Q6H Angel Machado MD 650 mg at 02/23/18 1139 Allergies Allergen Reactions ??? Penicillins CIS - Hives ??? Cephalosporins CIS - Hives ??? Lisinopril CIS - Hives ??? Sulfa (Sulfonamide Antibiotics) CIS - Hives Social History Substance Use Topics ??? Smoking status: Former Smoker ??? Smokeless tobacco: Not on file ??? Alcohol use Not on file No family history on file. Reason for visit: Dnaette Reji Doris was referred for smoking cessation counseling. Danette George is a 77 y.o female admitted with a NSTEMI and is a current everyday smoker. The following information has been reviewed with the patient: Social History: Marital status: ETOH: No Drug use: No Caffeine: 2 cups coffee/day Pets: dog, Havenese named Smoking history: Type of tobacco used: ( [...] scale of 0(Not at all important)-10(Highest importantance): 10/8 What would help increase confidence: It's a [...] in places where it is forbidden ex worship No Yes 0 3. Which cigarette would [...] from 02/22/2018 in Intermediate Cardiac Care Unit [facility] Weight 60.6 kg (133 lb 9.6 oz) [...] in using the Tobacco Cessation Clinic in [facility] that is a member of the [address] [place] [address] Partnership. The quit line will be able [...] The patient has also beenprovided with a [facility] Smoking Cessation packet and the contents have [...] has additional questions or concerns. Referral to 2Quits placed. I requested to have her start [...] included in AVS for her review. Lester Ernst MSN, RN-, [facility] [employer] [facility] Pager #[phone] * Plan of Care - Dana Stevenson RN - 02/23/2018 4:30 AM EDT Problem: Patient Care Overview Goal: Plan of Care Review Outcome: Ongoing (Interventions Implemented as Appropriate) 02/22/18 1931 02/23/18 0425 Plan of Care Review Progress -- progress [...] Outcome: Ongoing (Interventions Implemented as Appropriate) 02/22/18193002/23/18 0358 Dominguez Fall Risk History of Falling 25 [...] Outcome: Ongoing (Interventions Implemented as Appropriate) 02/22/18193002/23/18 0358 Dominguez Fall Risk History of Falling 25 [...] Appropriate) 02/23/18424 Interdisciplinary Rounds/Family Conf Participants nursing;patient;physician documented in this encounter Plan of Treatment Scheduled Referrals Name Type Priority Associated Diagnoses Orde r Schedule [facility]erral to [facility] Outpatient Referral Routine Tobacco abuse Ordered: 02/23/2018 documented as of this encounter Procedures Procedure Name Priority Date/Time Associated Diagnosis Comments COMPUTERIZED MACHINE FABRIC CUTTER SCAN 03/01/2018 12:00 AM EDT COMPUTERIZED MACHINE FABRIC CUTTER SCAN 03/01/2018 12:00 AM EDT EKG 12-LEAD Routine 02/26/2018 7:35 AM EDT Chest pain, unspecified type HEMOGRAM Routine 02/26/2018 5:55 AM EDT DIFFERENTIAL, AUTOMATED Routine 02/27/20 18 5:55 AM EDT CBC (WITH DIFF) Routine [...] STAT 02/22/2018 11:58 PM EDT CARDIAC ENZYMES ([facility]) Routine 02/22/2018 11:58 PM EDT URINE HOLD Routine 02/22/2018 5:54 PM EDT URINALYSIS WITH REFLEX CULTURE Routine 02/22/2018 5:54 PM EDT HEPARIN (UNFRACTIONATED) LEVEL STAT 02/22/2018 5:45 PM EDT HEMOGRAM Routine 02/22/2018 5:45 PM EDT DIFFERENTIAL, AUTOMATED Routine 02/23/20 18 5:45 PM EDT CARDIAC ENZYMES ([facility]) Routine 02/22/2018 5:45 PM EDT APTT Routine 02/22/2018 5:45 PM EDT PROTHROMBIN TIME Routine 02/22/2018 5:45 PM EDT CBC (WITH DIFF) Routine 02/22/2018 5:45 PM EDT MAGNESIUM Routine 02/22/2018 5:45 PM EDT BASIC METABOLIC PANEL Routine 02/22/2018 5:45 PM EDT EKG 12-LEAD STAT 02/22/2018 5:06 PM EDT Chest pain, unspecified type documented in this encounter Results * SCAN DOC: COMPUTERIZED MACHINE FABRIC CUTTER (03/01/2018 12:00 AM EDT) Anatomical Region Laterality Modality Other Narrative 03/01/2018 12:00 AM EDT Ordered by an unspecified provider. Scanning Provider MEDIA MGR SCAN EXT O RDR/RSLT * SCAN DOC: COMPUTERIZED MACHINE FABRIC CUTTER (03/01/2018 12:00 AM EDT) Anatomical Region Laterality [...] (Bezet) 388 ms MUSE SYSTEM Calculated P [place] 76 degrees MUSE SYSTEM Calculated R [place] 4 degrees MUSE SYSTEM Calculated T [place] 0 degrees MUSE SYSTEM INTERPRETATION Sinus bradycardia Cannot rule out Inferior infarct (cited on or before 25-FEB-2018) Abnormal ECG When compared with ECG of 25-FEB-2018 07:20, No significant change was found Confirmed by Earnest Chen MD ([id number]) on 02/26/2018 8:38:10 AM MUSE SYSTEM 02/26/2018 7:35 AM EDT 02/26/2018 8:38 AM EDT Chavez Dorantes MD ECG ORDERABLES MUSE SYSTEM * Differential, Automated (02/26/2018 5:55 AM EDT) Neutrophil % 53.8 % [facility] Neutrophil Absolute 4.03 1.70 - 6.10 x10(3)/[facility] Lymph % 38.3 % [facility] Lymphocytes Abs 2.9 0.9 - 3.2 x10(3)/[facility] Monocyte % 6.7 % [facility] Monocyte Abs 0.5 0.3 - 0.9 x10(3)/[facility] Eos % 0.8 % [facility] Eosinophils Abs 0.1 0.0 - 0.4 x10(3)/[facility] Basophil % 0.1 % [facility] Baso Absolute 0.0 0.0 - 0.1 x10(3)/[facility] Immature Gran % 0.30 % [facility] Comment: Immature granulocytes(IG's)percentage and absolute count will include metamyelocytes, myelocytes, and promyelocytes. Blood smears from CBCs yielding IG's will be scanned manually for concordance. If this scan disagrees with the automated IG or if promyelocytes are noted, a manual differential will be performed. Immature Gran Absolute 0.02 0.00 - 0.04 x10(3)/[facility] Blood specimen (specimen) 02/26/2018 5:55 AM EDT 02/26/2018 6:07 AM EDT Narrative Resulting Agency Comment Spec In Lab Angel Machado MD HEMATOLOGY ORDERABLE S [facility] [place] [address] * Hemogram (02/26/2018 5:55 AM EDT) White Blood Cell 7.5 4.0 - 9.5 x10(3)/[facility] Red Blood Cell 4.60 4.00 - 5.21 x10(6)/[facility] Hemoglobin 12.9 11.7 - 15.5 gm/dL [facility] Hematocrit 39.0 35.7 - 45.8 % [facility] Mean Cell Volume 84.8 82.6 - 94.4 fL [facility] Mean Cell Hemoglobin 28.0 27.1 - 32.0 pg [facility] Mean Cell Hemoglobin Concentration 33.1 31.7 - 35.0 gm/dL [facility] Platelet 239 145 - 357 x10(3)/[facility] RDW Standard Deviation 43.5 37.0 - 46.0 [facility] RDW coefficient of variation 14.0 11.5 - 14.1 % [facility] Mean Platelet Volume 10.2 7.6 - 12.9 [facility] NRBC% auto 0.0 % [facility] NRBC Absolute 0.000 0.000 - 0.000 x10(3)/[facility] Blood specimen (specimen) 02/26/2018 5:55 AM EDT 02/26/2018 6:07 AM EDT Narrative Resulting Agency Comment Spec In Lab Angel Machado MD HEMATOLOGY ORDERABLE S [facility] [place] [address] * Magnesium (02/26/2018 5:55 AM EDT) Magnesium 0.69 0.69 - 1.07 mmol/L [facility] Blood specimen (specimen) 02/26/2018 5:55 AM EDT 02/26/2018 6:07 AM EDT Narrative Resulting Agency Comment Spec In Lab Chavez Dorantes MD CHEMISTRY ORDERABLES [facility] [place] [address] * (ABNORMAL) Basic Metabolic Panel (non-fasting) (02/26/2018 5:55 AM EDT) Glucose 89 65 - 199 mg/dL [facility] Comment:Diabetes: >=200 mg/d L plus symptoms Blood Urea Nitrogen 12 8 - 18 mg/dL [facility] Creatinine 0.48(L) 0.70 - 1.20 mg/dL [facility] Sodium 140 135 - 145 mmol/L [facility] Potassium 3.8 3.5 - 5.0 mmol/L [facility] Comment: Please note: ??Patients with WBC >100,000 may have falsely elevated Potassium levels. ??For accurate Potassium quantification in these patients send serum separator tube (gold top) for subsequent determinations. ??Contact the Clinical Chemistry Laboratory if there are any questions. Chloride 103 98 - 107 mmol/L [facility] Carbon Dioxide 23 22 - 31 mmol/L [facility] Anion Gap 14 5 - 15 mmol/L [facility] Calcium 8.8 8.5 - 10.5 mg/dL [facility] Est Glomerular Filtration Rate 96 >=60 mL/min/1. 73 m?? [facility] Comment: The eGFR was calculated using the CKD-EPI equation. As with all creatinine based estimates of kidney function, eGFR values calculated with the CKD-EPI equation are not accurate in patients with acute kidney failure, extremes of body mass or the acutely ill. http://tinyurl.com/DHnkdep http://[employer]/DHMCnkf eGFR 111 >=60 mL/min/1. 73 m?? [facility] Comment: The eGFR was calculated using the CKD-EPI equation. As with all creatinine based estimates of kidney function, eGFR values calculated with the CKD-EPI equation are not accurate in patients with acute kidney failure, extremes of body mass or the acutely ill. http://[employer]/DHnkdep http://[employer]/MCnkf Blood specimen (specimen) 02/26/2018 5:55 AM EDT 02/26/2018 6:07 AM EDT Narrative Resulting Agency Comment Spec In Lab Chavez Dorantes MD CHEMISTRY ORDERABLES Performing Organization Address City/State/[facility] Co de Phone Number [facility] [place] [address] * CARDIAC CATHETERIZATION (02/25/2018 1:45 PM EDT) Anatomical Region Laterality Modality Other Narrative 02/25/2018 2:04 PM EDT ?[facility] ? Cardiac Catheterization/Intervention Report ? Patient Name: Danette George. ? Procedure Date: 02/25/2018 ? A #: [id number] ? Primary Physician: Mc Magana V ? Case #: [id number] ? File Name: [id number] ? Catheterization Order Number: [id number] ? [facility] ? Final Report [place], [place] ? Patient Name: ? Danette L. Doris ? ID#: ?[id number] ? : ?1940 ? Procedure Date: ? February 25, 2018 ?Case #: ? [id number] ? Room: ? 1 ? Case Physician: ? Mc Magana M.D. ? Start: ?13:22 ?Fellow: ? [...] patient presented with: non-STEMI (w/i 7 days). [place] ?Cardiovascular Society angina class was 0. This [...] was present for the entire procedure. ?Dr. Mc Magana M.D. was present during the moderate sedation ?intraservice time as documented by the sedation nurse. ??Case time = 00:20. ?Dr. Mc Magana M.D. performed the coronary angiography and left heart ?catheterization. ? Mc Magana M.D. ? Electronically Signed by: Mc Magana M.D. ? Report Finalized: 02/25/2018 ??14:00 ? Procedure Note Mc Magana MD - 02/25/2018 [facility] Cardiac Catheterization/Intervention Report Patient Name: Danette George [facility] Procedure Date: 02/25/2018 A #: [id number] Primary Physician: Mc Magana V Case #: [id number] File Name: [id number] Catheterization Order Number: [id number] [facility] FinalReport [place], [place] Patient Name: Danette George ID#:[id number] :1940 Procedure Date: February 25, 2018 Case #: [id number] Room: 1 Case Physician: Mc Magana M.D. Start: 13:22 Fellow: Tiffanie Arshad [...] patient presented with: non-STEMI (w/i 7 days). [place] Cardi[employer] Society angina class was 0. This [...] was present for the entire procedure. Dr. Mc Magana M.D. was present during the moderate sedation intraservice time as documented by the sedation nurse. Case time =00:20. Dr. Mc Magana M.D. performed the coronary angiography and leftheart catheterization. Mc Magana M.D. Electronically Signed by: Mc Magana M.D. Report Finalized: 02/25/2018 14:00 Mc Mcclain MD CARDIAC CATH ORDERAB LES * EKG 12 Lead (02/25/2018 7:20 AM EDT) Ventricular rate 61 BPM MUSE SYSTEM Atrial Rate 61 BPM MUSE SYSTEM P-R Interval 154 ms MUSE SYSTEM QRS Duration 86 ms MUSE SYSTEM Q-T Interval 408 ms MUSE SYSTEM QTC Calculated (Bezet) 410 ms MUSE SYSTEM Calculated P [place] 54 degrees MUSE SYSTEM Calculated R [place] 1 degrees MUSE SYSTEM Calculated T [place] -11 degrees MUSE SYSTEM INTERPRETATION Normal sinus rhythm Inferior infarct (cited on or before 25-FEB-2018) T wave abnormality, consider anterior ischemia Abnormal ECG When compared with ECG of 24-FEB-2018 07:18, QT has shortened Confirmed by sisi Davey MD, Kristy ([id number]) on 02/25/2018 9:03:56 AM Confirmed by MD Ganesh, Crispin ([id number]) on 02/25/2018 5:10:00 PM MUSE SYSTEM 02/25/2018 7:20 AM EDT 02/25/2018 5:10 PM EDT Chavez Dorantes MD ECG ORDERABLES Performing Organization Address City/[facility]/ZIP Co de Phone Number MUSE SYSTEM * Scan, Peripheral Blood (02/25/2018 4:57 AM EDT) Plat estimate Normal [facility] RBC Morphology Normal [facility] Blood specimen (specimen) 02/25/2018 4:57 AM EDT 02/25/2018 5:18 AM EDT Narrative Resulting Agency Comment Spec In Lab Angel Machado MD HEMATOLOGY ORDERABLE S Performing Organization Address City/[facility]/ZIP Co de Phone Number [facility] [place] [address] * Differential, Automated (02/25/2018 4:57 AM EDT) Neutrophil % 49.5 % [facility] Neutrophil Absolute 3.58 1.70 - 6.10 x10(3)/[facility] Lymph % 42.0 % [facility] Lymphocytes Abs 3.0 0.9 - 3.2 x10(3)/[facility] Monocyte % 7.3 % [facility] Monocyte Abs 0.5 0.3 - 0.9 x10(3)/[facility] Eos % 0.6 % [facility] Eosinophils Abs 0.0 0.0 - 0.4 x10(3)/[facility] Basophil % 0.3 % [facility] Baso Absolute 0.0 0.0 - 0.1 x10(3)/[facility] Immature Gran % 0.30 % [facility] Comment: Immature granulocytes(IG's)percentage and absolute count will include metamyelocytes, myelocytes, and promyelocytes. Blood smears from CBCs yielding IG's will be scanned manually for concordance. If this scan disagrees with the automated IG or if promyelocytes are noted, a manual differential will be performed. Immature Gran Absolute 0.02 0.00 - 0.04 x10(3)/[facility] Blood specimen (specimen) 02/25/2018 4:57 AM EDT 02/25/2018 5:18 AM EDT Narrative Resulting Agency Comment Spec In Lab Angel Machado MD HEMATOLOGY ORDERABLE S [facility] [place] [address] * Hemogram (02/25/2018 4:57 AM EDT) White Blood Cell 7.2 4.0 - 9.5 x10(3)/[facility] Red Blood Cell 4.54 4.00 - 5.21 x10(6)/[facility] Hemoglobin 12.7 11.7 - 15.5 gm/dL [facility] Hematocrit 38.8 35.7 - 45.8 % [facility] Mean Cell Volume 85.5 82.6 - 94.4 [facility] Mean Cell Hemoglobin 28.0 27.1 - 32.0 pg [facility] Mean Cell Hemoglobin Concentration 32.7 31.7 - 35.0 gm/dL [facility] Platelet 236 145 - 357 x10(3)/[facility] RDW Standard Deviation 42.4 37.0 - 46.0 [facility] RDW coefficient of variation 13.6 11.5 - 14.1 % [facility] Mean Platelet Volume 10.2 7.6 - 12.9 [facility] NRBC% auto 0.0 % [facility] NRBC Absolute 0.000 0.000 - 0.000 x10(3)/[facility] Blood specimen (specimen) 02/25/2018 4:57 AM EDT 02/25/2018 5:18 AM EDT Narrative Resulting Agency Comment Spec In Lab Angel Machado MD HEMATOLOGY ORDERABLE S Performing Organization Address City/[facility]/ZIP Co de Phone Number [facility] [place] [address] * Magnesium (02/25/2018 4:57 AM EDT) Magnesium 0.75 0.69 - 1.07 mmol/L [facility] Blood specimen (specimen) 02/25/2018 4:57 AM EDT 02/25/2018 5:18 AM EDT Narrative Resulting Agency Comment Spec In Lab Chavez Dorantes MD CHEMISTRY ORDERABLES Performing Organization Address [facility]/ZIP Co de Phone Number [facility] [address] * (ABNORMAL) Basic Metabolic Panel (non-fasting) (02/25/2018 4:57 AM EDT) Glucose 91 65 - 199 mg/dL [facility] Comment:Diabetes: >=200 mg/d L plus symptoms Blood Urea Nitrogen 8 8 - 18 mg/dL [facility] Creatinine 0.44(L) 0.70 - 1.20 mg/dL [facility] Sodium 138 135 - 145 mmol/L [facility] Potassium 3.5 3.5 - 5.0 mmol/L [facility] Comment: Please note: ??Patients with WBC >100,000 may have falsely elevated Potassium levels. ??For accurate Potassium quantification in these patients send serum separator tube (gold top) for subsequent determinations. ??Contact the Clinical Chemistry Laboratory if there are any questions. Chloride 101 98 - 107 mmol/L [facility] Carbon Dioxide 26 22 - 31 mmol/L [facility] Anion Gap 11 5 - 15 mmol/L [facility] Calcium 9.0 8.5 - 10.5 mg/dL [facility] Est Glomerular Filtration Rate 99 >=60 mL/min/1. 73 m?? [facility] Comment: The eGFR was calculated using the CKD-EPI equation. As with all creatinine based estimates of kidney function, eGFR values calculated with the CKD-EPI equation are not accurate in patients with acute kidney failure, extremes of body mass or the acutely ill. http://[employer]/Orthosnkdep http://[employer]/Orthosnkf eGFR 114 >=60 mL/min/1. 73 m?? [facility] Comment: The eGFR was calculated using the CKD-EPI equation. As with all creatinine based estimates of kidney function, eGFR values calculated with the CKD-EPI equation are not accurate in patients with acute kidney failure, extremes of body mass or the acutely ill. http://[employer]/Orthosnkdep http://[employer]/[facility]AL[facility]kf Blood specimen (specimen) 02/25/2018 4:57 AM EDT 02/25/2018 5:18 AM EDT Narrative Resulting Agency Comment Spec In Lab Chavez Dorantes MD CHEMISTRY ORDERABLES [facility] [place] [address] * EKG 12 Lead (02/24/2018 7:18 AM EDT) Ventricular rate 60 BPM MUSE SYSTEM Atrial Rate 60 BPM MUSE SYSTEM P-R Interval 148 ms MUSE SYSTEM QRS Duration 86 ms MUSE SYSTEM Q-T Interval 470 ms MUSE SYSTEM QTC Calculated (Bezet) 470 ms MUSE SYSTEM Calculated P [place] 43 degrees MUSE SYSTEM Calculated R [place] 3 degrees MUSE SYSTEM Calculated T [place] -33 degrees MUSE SYSTEM INTERPRETATION Normal sinus rhythm serial changes of inferolateral infarct ??(cited on or before 23-FEB-2018) Abnormal ECG When compared with ECG of 23-FEB-2018 07:22, T wave inversion more evident in Anterior leads ??may be secondary to lead placement No significant change was found Confirmed by sisi Davey MD, Kristy ([id number]) on 02/24/2018 11:25:20 AM Confirmed by MD Ganesh, Crispin ([id number]) on 02/24/2018 1:03:02 PM MUSE SYSTEM 02/24/2018 7:18 AM EDT 02/24/2018 1:03 PM EDT Chavez Dorantes MD ECG ORDERABLES Performing Organization Address City/[facility]/ZIP Co de Phone Number MUSE SYSTEM * Scan, Peripheral Blood (02/24/2018 5:27 AM EDT) Plat estimate Normal [facility] RBC Morphology Normal [facility] Blood specimen (specimen) 02/24/2018 5:27 AM EDT 02/24/2018 5:44 AM EDT Narrative Resulting Agency Comment Spec In Lab Angel Machado MD HEMATOLOGY ORDERABLE S Performing Organization Address City/[facility]/ZIP Co de Phone Number [facility] [place] [address] * Differential, Automated (02/24/2018 5:27 AM EDT) Neutrophil % 58.3 % [facility] Neutrophil Absolute 5.02 1.70 - 6.10 x10(3)/[facility] Lymph % 33.2 % [facility] Lymphocytes Abs 2.9 0.9 - 3.2 x10(3)/[facility] Monocyte % 8.0 % [facility] Monocyte Abs 0.7 0.3 - 0.9 x10(3)/[facility] Eos % 0.1 % [facility] Eosinophils Abs 0.0 0.0 - 0.4 x10(3)/[facility] Basophil % 0.2 % [facility] Baso Absolute 0.0 0.0 - 0.1 x10(3)/[facility] Immature Gran % 0.20 % [facility] Comment: Immature granulocytes(IG's)percentage and absolute count will include metamyelocytes, myelocytes, and promyelocytes. Blood smears from CBCs yielding IG's will be scanned manually for concordance. If this scan disagrees with the automated IG or if promyelocytes are noted, a manual differential will be performed. Immature Gran Absolute 0.02 0.00 - 0.04 x10(3)/[facility] Blood specimen (specimen) 02/24/2018 5:27 AM EDT 02/24/2018 5:44 AM EDT Narrative Resulting Agency Comment Spec In Lab Angel Machado MD HEMATOLOGY ORDERABLE S [facility] [place] [address] * Hemogram (02/24/2018 5:27 AM EDT) White Blood Cell 8.6 4.0 - 9.5 x10(3)/[facility] Red Blood Cell 4.25 4.00 - 5.21 x10(6)/[facility] Hemoglobin 12.4 11.7 - 15.5 gm/dL [facility] Hematocrit 36.9 35.7 - 45.8 % [facility] Mean Cell Volume 86.8 82.6 - 94.4 fL [facility] Mean Cell Hemoglobin 29.2 27.1 - 32.0 pg [facility] Mean Cell Hemoglobin Concentration 33.6 31.7 - 35.0 gm/dL [facility] Platelet 231 145 - 357 x10(3)/[facility] RDW Standard Deviation 44.6 37.0 - 46.0 fL [facility] RDW coefficient of variation 13.9 11.5 - 14.1 % [facility] Mean Platelet Volume 10.5 7.6 - 12.9 fL [facility] NRBC% auto 0.0 % [facility] NRBC Absolute 0.000 0.000 - 0.000 x10(3)/[facility] Blood specimen (specimen) 02/24/2018 5:27 AM EDT 02/24/2018 5:44 AM EDT Narrative Resulting Agency Comment Spec In Lab Angel Machado MD HEMATOLOGY ORDERABLE S Performing Organization Address City/[facility]/ZIP Co de Phone Number [facility] [place] [address] * Magnesium (02/24/2018 5:27 AM EDT) Magnesium 0.75 0.69 - 1.07 mmol/L [facility] Blood specimen (specimen) 02/24/2018 5:27 AM EDT 02/24/2018 5:43 AM EDT Narrative Resulting Agency Comment Spec In Lab Chavez Dorantes MD CHEMISTRY ORDERABLES Performing Organization Address [facility] Co de Phone Number [facility] [address] * (ABNORMAL) Basic Metabolic Panel (non-fasting) (02/24/2018 5:27 AM EDT) Glucose 95 65 - 199 mg/dL [facility] Comment:Diabetes: >=200 mg/d L plus symptoms Blood Urea Nitrogen 8 8 - 18 mg/dL [facility] Creatinine 0.48(L) 0.70 - 1.20 mg/dL [facility] Sodium 136 135 - 145 mmol/L [facility] Potassium 3.4(L) 3.5 - 5.0 mmol/L [facility] Comment: Please note: ??Patients with WBC >100,000 may have falsely elevated Potassium levels. ??For accurate Potassium quantification in these patients send serum separator tube (gold top) for subsequent determinations. ??Contact the Clinical Chemistry Laboratory if there are any questions. Chloride 98 98 - 107 mmol/L [facility] Carbon Dioxide 27 22 - 31 mmol/L [facility] Anion Gap 11 5 - 15 mmol/L [facility] Calcium 8.6 8.5 - 10.5 mg/dL [facility] Est Glomerular Filtration Rate >60 >=60 [facility] Comment: The eGFR was calculated using the CKD-EPI equation. As with all creatinine based estimates of kidney function, eGFR values calculated with the CKD-EPI equation are not accurate in patients with acute kidney failure, extremes of body mass or the acutely ill. http://[employer]/Pop Up Archive http://[employer]/Orthosnkf eGFR 111 >=60 mL/min/1. 73 m?? [facility] Comment: The eGFR was calculated using the CKD-EPI equation. As with all creatinine based estimates of kidney function, eGFR values calculated with the CKD-EPI equation are not accurate in patients with acute kidney failure, extremes of body mass or the acutely ill. [email or web address]/Pop Up Archive [email or web address] Blood specimen (specimen) 02/24/2018 5:27 AM EDT 02/24/2018 5:43 AM EDT Narrative Resulting Agency Comment Spec In Lab Chavez Dorantes MD CHEMISTRY ORDERABLES Performing Organization Address City/State/[facility] Co de Phone Number [facility] [address] * Heparin (unfractionated) Level (02/24/2018 5:27 AM EDT) UF Heparin 0.33 IU/mL [facility] Comment: Guidelines for therapeutic unfractionated heparin [...] MD HEMATOLOGY ORDERAB LES Performing Organization Address [facility] de Phone Number [facility] [place] [address] * Heparin (unfractionated) Level (02/23/2018 12:00 PM EDT) UF Heparin 0.34 IU/mL [facility] Comment: Guidelines for therapeutic unfractionated heparin [...] MD HEMATOLOGY ORDERAB LES Performing Organization Address [facility] de Phone Number [facility] [place] [address] * ECHO COMPLETE W CONTRAST (02/23/2018 11:23 AM EDT) EF 63 HEARTLAB SYSTEM Anatomical Region Laterality Modality Other 02/23/2018 Narrative 02/23/2018 11:37 AM EDT Procedure: ?Transthoracic Echocardiogram Patient: ?DORIS KHALIL I ? (Age): 1940(77y) Med Rec#: ? [id number] ?Sex: ?F ? Site Loc: ? [facility] ?Ht / Wt: ??158(cm)/61(kg) Pt. Loc: ?[facility] ? BSA: ?1.62 Study Date: ?? 02/23/2018 ?Pt. Type: Inpatient Tape: ? Referring: MIREYA Reading: Ramakrishna Toure ([id number]) Estimator And Drafter Supervisor: Brayden Gomez Diagnosis: *Chest pain, unspecified (R07.9) [...] E-wave Vmax ?0.6 ?m/sec ? MV deceleration [id number] ?msec ? MV A-wave Vmax ?1.1 ?m/sec [...] ? Mid-Inferior ?Normal ? Mid-Inferoseptal ?Normal ? [place]-Septal ? Akinetic ? [place]-Anterior ? Akinetic ? [place]-Lateral ?Akinetic ? [place]-Inferior ? Akinetic ? [place]-Tip ?Akinetic ? This report has been electronically signed by: Ramakrishna Toure MD ? 02/23/2018 11:37:21 Images reviewed and interpretation verified [facility] Cardiac Ultrasound Laboratory Procedure Note Ramakrishna Toure MD - 02/23/2018 Procedure: Transthoracic Echocardiogram Patient: DORIS LAU(Age): 1940(77y) Med Rec#: [id number] Sex: F Site Loc: [facility] Ht / Wt: 158(cm)/61(kg) Pt. Loc: [facility] BSA: 1.62 Study Date: 02/23/2018 Pt. Type: Inpatient Tape: Referring: MIREYA Reading: Ramakrishna Toure ([id number]) Estimator [employer] Dra[employer] Supervisor: Brayden Gomez Diagnosis: *Chest pain, unspecified (R07.9) [...] MV E-wave Vmax 0.6 m/sec MV deceleration [id number] msec MV A-wave Vmax 1.1 m/sec MV [...] Normal Mid-Posterolateral Normal Mid-Inferior Normal Mid-Inferoseptal Normal [place]-Septal Akinetic [place]-Anterior Akinetic [place]-Lateral Akinetic [place]-Inferior Akinetic [place]-Tip Akinetic This report has been electronically signed by: Ramakrishna Toure MD 02/23/2018 11:37:21 Images reviewed and interpretation verified [facility]trasound [facility] Chavez Dorantes MD ECHO ORDERABLES * EKG 12 Lead (02/23/2018 7:22 AM EDT) Ventricular rate 64 BPM MUSE SYSTEM Atrial Rate 64 BPM MUSE SYSTEM P-R Interval 148 ms MUSE SYSTEM QRS Duration 82 ms MUSE SYSTEM Q-T Interval 432 ms MUSE SYSTEM QTC Calculated (Bezet) 445 ms MUSE SYSTEM Calculated P [place] 77 degrees MUSE SYSTEM Calculated R [place] 0 degrees MUSE SYSTEM Calculated T [place] -23 degrees MUSE SYSTEM INTERPRETATION Normal sinus rhythm Inferior infarct , age undetermined ST elevation consider inferolateral injury or acute infarct Abnormal ECG When compared with ECG of 25-DIXIE-2018 17:06, (unconfirmed) T wave inversion more evident in Inferior leads T wave inversion now evident in Anterolateral leads Confirmed by fellow MD Petar, Gaby ([id number]) on 02/23/2018 10:21:51 AM Confirmed by MD Ganesh, Crispin ([id number]) on 02/23/2018 5:01:37 PM MUSE SYSTEM 02/23/2018 7:22 AM EDT 02/23/2018 5:01 PM EDT Chavez Dorantes MD ECG ORDERABLES Performing Organization Address City/[facility]/ZIP Co de Phone Number MUSE SYSTEM * Scan, Peripheral Blood (02/23/2018 6:00 AM EDT) Plat estimate Normal [facility] RBC Morphology Normal [facility] Blood specimen (specimen) 02/23/2018 6:00 AM EDT 02/23/2018 6:10 AM EDT Narrative Resulting Agency Comment Spec In Lab Angel Machado MD HEMATOLOGY ORDERABLE S Performing Organization Address [facility] Co de Phone Number [facility] [place] [address] * Heparin (unfractionated) Level (02/23/2018 6:00 AM EDT) UF Heparin 0.40 IU/mL [facility] Comment: Guidelines for therapeutic unfractionated heparin [...] Lab Chavez Dorantes MD HEMATOLOGY ORDERABLE S [facility] [place] [address] * Differential, Automated (02/23/2018 6:00 AM EDT) Neutrophil % 62.8 % [facility] Neutrophil Absolute 4.32 1.70 - 6.10 x10(3)/[facility] LABORAT[facility] Lymph % 27.5 % [facility] Lymphocytes Abs 1.9 0.9 - 3.2 x10(3)/[facility] Monocyte % 9.3 % [facility] Monocyte Abs 0.6 0.3 - 0.9 x10(3)/[facility] Eos % 0.0 % [facility] Eosinophils Abs 0.0 0.0 - 0.4 x10(3)/[facility] Basophil % 0.1 % [facility] Baso Absolute 0.0 0.0 - 0.1 x10(3)/[facility] Immature Gran % 0.30 % [facility] Comment: Immature granulocytes(IG's)percentage and absolute count will include metamyelocytes, myelocytes, and promyelocytes. Blood smears from CBCs yielding IG's will be scanned manually for concordance. If this scan disagrees with the automated IG or if promyelocytes are noted, a manual differential will be performed. Immature Gran Absolute 0.02 0.00 - 0.04 x10(3)/[facility] LAB[facility]ATORY Blood specimen (specimen) 02/23/2018 6:00 AM EDT 02/23/2018 6:10 AM EDT Narrative Resulting Agency Comment Spec In Lab Angel Machado MD HEMATOLOGY ORDERABLE S [facility] [place] [address] * Hemogram (02/23/2018 6:00 AM EDT) White Blood Cell 6.9 4.0 - 9.5 x10(3)/[facility] LABORATORY Red Blood Cell 4.46 4.00 - 5.21 x10(6)/[facility] LABORATORY Hemoglobin 12.7 11.7 - 15.5 gm/dL [facility] Hematocrit 38.7 35.7 - 45.8 % [facility] Mean Cell Volume 86.8 82.6 - 94.4 [facility] LABORATORY Mean Cell Hemoglobin 28.5 27.1 - 32.0 pg [facility] Mean Cell Hemoglobin Concentration 32.8 31.7 - 35.0 gm/dL [facility] Platelet 237 145 - 357 x10(3)/[facility] LABORATORY RDW Standard Deviation 44.0 37.0 - 46.0 [facility]ATORY RDW coefficient of variation 13.7 11.5 - 14.1 % [facility] Mean Platelet Volume 10.1 7.6 - 12.9 [facility] LABORATORY NRBC% auto 0.0 % [facility] NRBC Absolute 0.000 0.000 - 0.000 x10(3)/[facility] Blood specimen (specimen) 02/23/2018 6:00 AM EDT 02/23/2018 6:10 AM EDT Narrative Resulting Agency Comment Spec In Lab Angel Machado MD HEMATOLOGY ORDERABLE S [facility] [place] [address] * Magnesium (02/23/2018 6:00 AM EDT) Magnesium 0.84 0.69 - 1.07 mmol/L [facility] Blood specimen (specimen) 02/23/2018 6:00 AM EDT 02/23/2018 6:10 AM EDT Narrative Resulting Agency Comment Spec In Lab Chavez Dorantes MD CHEMISTRY ORDERABLES [facility] [place] [address] * (ABNORMAL) Basic Metabolic Panel (non-fasting) (02/23/2018 6:00 AM EDT) Glucose 105 65 - 199 mg/dL [facility] Comment:Diabetes: >=200 mg/d L plus symptoms Blood Urea Nitrogen 12 8 - 18 mg/dL [facility] Creatinine 0.48(L) 0.70 - 1.20 mg/dL [facility] Sodium 136 135 - 145 mmol/L [facility] Potassium 4.2 3.5 - 5.0 mmol/L [facility] Comment: Please note: ??Patients with WBC >100,000 may have falsely elevated Potassium levels. ??For accurate Potassium quantification in these patients send serum separator tube (gold top) for subsequent determinations. ??Contact the Clinical Chemistry Laboratory if there are any questions. Chloride 97(L) 98 - 107 mmol/L [facility] Carbon Dioxide 25 22 - 31 mmol/L [facility] Anion Gap 14 5 - 15 mmol/L [facility] Calcium 8.8 8.5 - 10.5 mg/dL [facility] Est Glomerular Filtration Rate >60 >=60 [facility] Comment: The eGFR was calculated using the CKD-EPI equation. As with all creatinine based estimates of kidney function, eGFR values calculated with the CKD-EPI equation are not accurate in patients with acute kidney failure, extremes of body mass or the acutely ill. [email or web address] http://[employer]/[facility] eGFR 111 >=60 mL/min/1. 73 m?? [facility] Comment: The eGFR was calculated using the CKD-EPI equation. As with all creatinine based estimates of kidney function, eGFR values calculated with the CKD-EPI equation are not accurate in patients with acute kidney failure, extremes of body mass or the acutely ill. http://[employer]/DHnkdep [email or web address]://[employer]/[facility] Blood specimen (specimen) 02/23/2018 6:00 AM EDT 02/23/2018 6:10 AM EDT Narrative Resulting Agency Comment Spec In Lab Chavez Dorantes MD CHEMISTRY ORDERABLES [facility] [place] [address] * (ABNORMAL) Cardiac Enzymes (LEB/CGP) (02/23/2018 6:00 AM EDT) Troponin-T 0.29(H) 0.00 - 0.00 ng/mL [facility] Comment: The 99th percentile for Troponin T is less than 0.01 ng/mL, any detectable cTnT concentration using this assay should be considered elevated. According to the third universal definition of myocardial infarction the following criteria with a clinical presentation consistent with acute myocardial ischemia meets the diagnosis for a myocardial infarction (CT). Detection of a rise and/or fall of cTnT, with at least one value greater than the 99th percentile (> or = 0.01) and with at least one of the following ?? Symptoms of ischemia ?? New or presumed new significant ZW-vfzrril-I wave (ST-T) changes or new left bundle [...] additional sample may be indicated. Reference: Third [place] Definition of Myocardial Infarction. Journal of the [place] [employer] 2012;60:1581-98 Creatine Kinase 143 0 - 160 unit/L [facility] Blood specimen (specimen) 02/23/2018 6:00 AM EDT 02/23/2018 6:11 AM EDT Narrative Resulting Agency Comment Spec In Lab Chvaez Dorantes MD CHEMISTRY ORDERABLES [facility] [place] [phone] * XR Chest PA & Lateral (Generic) [...] Heparin (unfractionated) Level (02/22/2018 11:58 PM EDT) Pathologist [facility] UF Heparin 0.27 IU/mL [facility] Comment: Guidelines for therapeutic unfractionated heparin [...] Lab Chavez Dorantes MD HEMATOLOGY ORDERABLE S [facility] [place] [address] * (ABNORMAL) Cardiac Enzymes (LEB/CGP) (02/22/2018 11:58 PM EDT) Pathologist [facility] Troponin-T 0.34(H) 0.00 - 0.00 ng/mL [facility] Comment: The 99th percentile for Troponin T is less than 0.01 ng/mL, any detectable cTnT concentration using this assay should be considered elevated. According to the third universal definition of myocardial infarction the following criteria with a clinical presentation consistent with acute myocardial ischemia meets the diagnosis for a myocardial infarction (CT). Detection of a rise and/or fall of cTnT, with at least one value greater than the 99th percentile (> or = 0.01) and with at least one of the following ?? Symptoms of ischemia ?? New or presumed new significant DS-unribei-L wave (ST-T) changes or new left bundle [...] additional sample may be indicated. Reference: Third [place] Definition of Myocardial Infarction. Journal of the [place] [employer] 2012;60:1581-98 Creatine Kinase 164(H) 0 - 160 unit/L [facility] Blood specimen (specimen) 02/22/2018 11:58 PM EDT 02/23/2018 12:06 AM EDT Narrative Resulting Agency Comment Spec In Lab Chavez Dorantes MD CHEMISTRY ORDERABLES Performing Organization Address City/[facility]/ZIP Co de Phone Number [facility] [place] [address] * Urine Hold (02/22/2018 5:54 PM EDT) Hold, Urine Sample in lab. [facility] Urine specimen (specimen) Urine / Unknown 02/22/2018 5:54 PM EDT 02/22/2018 6:09 PM EDT Angel Machado MD URINE ORDERABLES Performing Organization Address [facility]/ZIP Co de Phone Number [facility] [place] [address] * (ABNORMAL) Urinalysis with reflex Culture (02/22/2018 5:54 PM EDT) Glucose, Urine Dipstick Negative Negative mg/dL [facility] Protein, Urine Dipstick Negative Negative mg/dL [facility] Bilirubin, Urine Dipstick Negative Negative mg/dL [facility] Comment: Clinical correlation required for positive Urine Bilirubin results as false positive may occur with some drugs and drug related products. If a false positive is suspected a serum total bilirubin should be considered if clinically indicated. Urobilinogen, Urine Dipstick Normal Normal mg/dL [facility] pH, Urn (dipstick) 7.0 5.0 - 8.0 [facility] Blood, Urine Dipstick Negative Negative mg/dL [facility] Ketone, Urine Dipstick 20(A) Negative mg/dL [facility] Nitrite, Urine Dipstick Negative Negative [facility] Leukocytes, Urine Dipstick Negative Negative mcL [facility] Appearance, Urine Dipstick Clear Clear [facility] Specific [place] Urine Automated 1.010 1.002 - 1.030 [facility] Color, Urine Dipstick Straw Yellow [facility] Reflex to Culture No [facility] Urine specimen obtained by clean catch procedure (specimen) 02/22/2018 5:54 PM EDT 02/22/2018 6:07 PM EDT Narrative Resulting Agency Comment Spec In Lab Chavez Dorantes MD URINE ORDERABLES [facility] [place] [address] * (ABNORMAL) Differential, Automated (02/22/2018 5:45 PM EDT) Pathologist [facility] Neutrophil % 69.7 % [facility] Neutrophil Absolute 2.37 1.70 - 6.10 x10(3)/mc L [facility] Lymph % 27.1 % [facility] Lymphocytes Abs 0.9 0.9 - 3.2 x10(3)/mc L [facility] Monocyte % 2.9 % [facility] Monocyte Abs 0.1(L) 0.3 - 0.9 x10(3)/[facility] LABORATORY Eos % 0.0 % [facility] Eosinophils Abs 0.0 0.0 - 0.4 x10(3)/[facility] LABORATORY Basophil % 0.0 % [facility] Baso Absolute 0.0 0.0 - 0.1 x10(3)/[facility] LABORATORY Immature Gran % 0.30 % [facility] Comment: Immature granulocytes(IG's)percentage and absolute count will include metamyelocytes, myelocytes, and promyelocytes. Blood smears from CBCs yielding IG's will be scanned manually for concordance. If this scan disagrees with the automated IG or if promyelocytes are noted, a manual differential will be performed. Immature Gran Absolute 0.01 0.00 - 0.04 x10(3)/[facility] LABORATORY Blood specimen (specimen) 02/22/2018 5:45 PM EDT 02/22/2018 5:56 PM EDT Narrative Resulting Agency Comment Spec In Lab Angel Machado MD HEMATOLOGY ORDERABLE S [facility] [place] [address] * (ABNORMAL) Hemogram (02/22/2018 5:45 PM EDT) White Blood Cell 3.4(L) 4.0 - 9.5 x10(3)/[facility] LABORATORY Red Blood Cell 4.60 4.00 - 5.21 x10(6)/[facility] LAB[facility]ORY Hemoglobin 13.2 11.7 - 15.5 gm/dL [facility] Hematocrit 40.1 35.7 - 45.8 % [facility] Mean Cell Volume 87.2 82.6 - 94.4 fL [facility] Mean Cell Hemoglobin 28.7 27.1 - 32.0 pg [facility] Mean Cell Hemoglobin Concentration 32.9 31.7 - 35.0 gm/dL [facility] Platelet 226 145 - 357 x10(3)/mc L [facility] RDW Standard Deviation 43.6 37.0 - 46.0 fL [facility] RDW coefficient of variation 13.8 11.5 - 14.1 % [facility] Mean Platelet Volume 10.3 7.6 - 12.9 fL [facility] NRBC% auto 0.0 % [facility] NRBC Absolute 0.000 0.000 - 0.000 x10(3)/mc L [facility] Blood specimen (specimen) 02/22/2018 5:45 PM EDT 02/22/2018 5:56 PM EDT Narrative Resulting Agency Comment Spec In Lab Angel Machado MD HEMATOLOGY ORDERABLE S [facility] [place] [phone] * Heparin (unfractionated) Level (02/22/2018 5:45 PM EDT) UF Heparin 0.11 IU/mL [facility] Comment: Guidelines for therapeutic unfractionated heparin [...] Lab Chavez Dorantes MD HEMATOLOGY ORDERABLE S [facility] [place] [address] * (ABNORMAL) Cardiac Enzymes (LEB/CGP) (02/22/2018 5:45 PM EDT) Troponin-T 0.20(H) 0.00 - 0.00 ng/mL [facility] Comment: The 99th percentile for Troponin T is less than 0.01 ng/mL, any detectable cTnT concentration using this assay should be considered elevated. According to the third universal definition of myocardial infarction the following criteria with a clinical presentation consistent with acute myocardial ischemia meets the diagnosis for a myocardial infarction (CT). Detection of a rise and/or fall of cTnT, with at least one value greater than the 99th percentile (> or = 0.01) and with at least one of the following ?? Symptoms of ischemia ?? New or presumed new significant ZH-xkdhtdg-G wave (ST-T) changes or new left bundle [...] additional sample may be indicated. Reference: Third [place] Definition of Myocardial Infarction. Journal of the [place] [employer] 2012;60:1581-98 Creatine Kinase 123 0 - 160 unit/L [facility] Blood specimen (specimen) 02/22/2018 5:45 PM EDT 02/22/2018 5:56 PM EDT Narrative Resulting Agency Comment Spec In Lab Chavez Dorantes MD CHEMISTRY ORDERABLES Performing Organization Address City/[facility]/ZIP Co de Phone Number [facility] [address] * APTT (02/22/2018 5:45 PM EDT) Partial Thromboplastin Time 30 25 - 37 sec [facility] Comment: The PTT is NOT appropriate for heparin monitoring. Use the Anti-Xa level for heparin monitoring (HEP UFH) or LMWH monitoring (HEP LMW). A PTT less than 37 seconds generally indicates adequate hemostasis. Blood specimen (specimen) 02/22/2018 5:45 PM EDT 02/22/2018 5:57 PM EDT Narrative Resulting Agency Comment Spec In Lab Chavez Dorantes MD HEMATOLOGY ORDERABLE S Performing Organization Address [facility] Co de Phone Number [facility] [address] * Prothrombin Time (02/22/2018 5:45 PM EDT) Prothrombin Time 11.6 9.4 - 12.5 sec [facility] International Normalization Ratio 1.0 [facility] Comment: An INR <2.0 indicates [...] MD HEMATOLOGY ORDERABLE S Performing Organization Address City/[facility]/ZIP Co de Phone Number [facility] [address] * Magnesium (02/22/2018 5:45 PM EDT) Magnesium 0.86 0.69 - 1.07 mmol/L [facility] Blood specimen (specimen) 02/22/2018 5:45 PM EDT 02/22/2018 5:56 PM EDT Narrative Resulting Agency Comment Spec In Lab Chavez Dorantes MD CHEMISTRY ORDERABLES [facility] [place] [address] * (ABNORMAL) Basic Metabolic Panel (non-fasting) (02/22/2018 5:45 PM EDT) Glucose 139 65 - 199 mg/dL [facility] Comment:Diabetes: >=200 mg/d L plus symptoms Blood Urea Nitrogen 9 8 - 18 mg/dL [facility] Creatinine 0.44(L) 0.70 - 1.20 mg/dL [facility] Sodium 134(L) 135 - 145 mmol/L [facility] Potassium 4.4 3.5 - 5.0 mmol/L [facility] Comment: Please note: ??Patients with WBC >100,000 may have falsely elevated Potassium levels. ??For accurate Potassium quantification in these patients send serum separator tube (gold top) for subsequent determinations. ??Contact the Clinical Chemistry Laboratory if there are any questions. Chloride 95(L) 98 - 107 mmol/L [facility] Carbon Dioxide 25 22 - 31 mmol/L [facility] Anion Gap 14 5 - 15 mmol/L [facility] Calcium 9.0 8.5 - 10.5 mg/dL [facility] Est Glomerular Filtration Rate >60 >=60 [facility] Comment: The eGFR was calculated using the CKD-EPI equation. As with all creatinine based estimates of kidney function, eGFR values calculated with the CKD-EPI equation are not accurate in patients with acute kidney failure, extremes of body mass or the acutely ill. http://[employer]/DHnkdep http://[employer]/DHMCnkf eGFR 114 >=60 mL/min/1. 73 m?? [facility] Comment: The eGFR was calculated using the CKD-EPI equation. As with all creatinine based estimates of kidney function, eGFR values calculated with the CKD-EPI equation are not accurate in patients with acute kidney failure, extremes of body mass or the acutely ill. http://[employer]/DHnkdep [email or web address]://[email or web address]/DHMCnkf Blood specimen (specimen) 02/22/2018 5:45 PM EDT 02/22/2018 5:56 PM EDT Narrative Resulting Agency Comment Spec In Lab Chavez Dorantes MD CHEMISTRY ORDERABLES Performing Organization Address [facility] Co de Phone Number [facility] [place] [address] * EKG 12 Lead (02/22/2018 5:06 PM EDT) Ventricular rate 68 BPM MUSE SYSTEM Atrial Rate 68 BPM MUSE SYSTEM P-R Interval 156 ms MUSE SYSTEM QRS Duration 80 ms MUSE SYSTEM Q-T Interval 446 ms MUSE SYSTEM QTC Calculated (Bezet) 474 ms MUSE SYSTEM Calculated P [place] 66 degrees MUSE SYSTEM Calculated R [place] 12 degrees MUSE SYSTEM Calculated T [place] 24 degrees MUSE SYSTEM INTERPRETATION Normal sinus rhythm Normal ECG When compared with ECG of 12-MAR-2010 15:53, Nonspecific T wave abnormality now evident in Lateral leads Confirmed by MD Ganesh, Crispin ([id number]) on 02/23/2018 4:45:36 PM MUSE SYSTEM 02/22/2018 5:06 PM EDT 02/23/2018 4:45 PM EDT Chavez Dorantes MD ECG ORDERABLES Performing Organization Address City/[facility] Co de Phone Number MUSE SYSTEM documented in this encounter Visit Diagnoses Not on filedocumented in this encounter Admitting Diagnoses Diagnosis NSTEMI [...] 02/25/2018 5:20 PM EDT 650 mg aspirin EC tablet 81 mg 81 [...] Given 02/24/2018 8:54 AM EDT 40 mg dextromethorphan-guaiFENesin (ROBITUSSIN) 10-100 mg/5 mL oral syrup 5 mL 5 mL, Oral, EVERY 4 HOURS PRN, Starting on Thu02/22/18 at 1706, Until Thu02/26/18 at 1648, Cough, Routine Given 02/26/2018 4:04 AM EDT 5 mLs Given 02/25/2018 8:43 PM EDT 5 mLs Given 02/24/2018 6:36 PM EDT 5 mLs fentaNYL (DURAGESIC) 50 mcg/hr patch 1 patch [...] Until Discontinued, Verify fentaNYL 50 mcg/hr patch fentaNYL 50 mcg/mL multi-dose injection ONCE PRN, Starting on [place] 02/25/18 at 1314, Until [place] 02/25/18 at 1354, Cath (Intra-Procedure), Routine Given 02/25/2018 1:28 PM EDT 37.5 mcg Given 02/25/2018 1:14 PM EDT 25 mcg gabapentin (NEURONTIN) capsule 600 mg 600 mg, [...] 9:15 PM EDT 900 mg heparin (porcine) injection ONCE PRN, Starting on [place] 02/25/18 at 1329, Until [place] 02/25/18 at 1354, Cath (Intra-Procedure), Routine Given 02/25/2018 1:29 PM EDT 4,000 Units heparin (Porcine) subcutaneous injection 5,000 Units 5,000 Units, Subcutaneous, EVERY 12 HOURS SCHEDULED (2 times per day), First dose on Thu02/24/18 at 2100, Until Discontinued, Routine Given 02/26/2018 8:58 AM EDT 5,000 Units Given 02/25/2018 8:05 PM EDT 5,000 Units Given 02/25/2018 8:43 AM EDT 5,000 Units iohexol (OMNIPAQUE) 350 mg/mL solution ONCE PRN, Starting on [place] 02/25/18 at 1340, Until [place] 02/25/18 at 1354, Cath (Intra-Procedure), Routine Given 02/25/2018 1:40 PM EDT 32 mLs ipratropium-albuterol (DUONEB) 0.5 mg-3 mg(2.5 mg base)/3 mL nebulizer solution 3 mL 3 mL, Nebulization, EVERY 6 HOURS, First dose (after last modification) on Thu02/26/18 at 1400, Until Discontinued, Routine Given 02/26/2018 1:32 PM EDT 3 mLs lidocaine (XYLOCAINE) 10 mg/mL (1 %) injection ONCE PRN, Starting on Thu02/25/18 at 1322, Until Thu02/25/18 at 1354, Cath (Intra-Procedure), Routine Given 02/25/2018 1:22 PM EDT 10 mLs Right Arm loperamide (IMODIUM) capsule 2 mg 2 mg, [...] Given 02/25/2018 11:57 PM EDT 12.5 mg midazolam (PF) (VERSED) 1 mg/mL multi-dose injection ONCE PRN, Starting on Thu02/25/18 at 1314, Until Thu02/25/18 at 1354, Cath (Intra-Procedure), Routine Given 02/25/2018 1:14 PM EDT 1 mg nicotine (NICODERM CQ) 21 mg/24 hr [...] Given 02/23/2018 4:48 PM EDT 2 mg nitroGLYcerin 100 mcg/mL intracoronary dilution ONCE PRN, Starting on Thu02/25/18 at 1328, Until Thu02/25/18 at 1354, Cath (Intra-Procedure), Routine Given 02/25/2018 1:28 PM EDT 150 mcg sodium chloride 0.9 % flush 5 mL 5 mL, Intravenous, 2 TIMES DAILY, First dose on Thu02/22/18 at 2100, Until Discontinued, Routine Given 02/26/2018 8:59 AM EDT 5 mLs Given 02/25/2018 8:11 PM EDT 5 mLs Given 02/25/2018 8:45 AM EDT 5 mLs traZODone (DESYREL) tablet 50 mg 50 mg, Oral, NIGHTLY, First dose on Thu02/24/18 at 2100, Until Discontinued, Routine Given 02/25/2018 8:03 PM EDT 50 mg Given 02/24/2018 8:03 PM EDT 50 mg verapamil (ISOPTIN) injection ONCE PRN, Starting on Thu02/25/18 at 1328, Until Thu02/25/18 at 1515, Administer over 2 Minutes, Cath (Intra-Procedure) Given 02/25/2018 1:28 PM EDT 2.5 mg documented in this encounter Active and Recently Administered Medications Times are shown in EDT. Scheduled Medication Order 02/24/2018 02/25/2018 02/26/2018 acetaminophen (TYLENOL) tablet 650 mg 650 mg, Oral, EVERY 6 HOURS, First dose on Thu02/22/18 at 1800, Until Discontinued, Maximum dose of acetaminophen is 4000 mg from all sources in 24 hours., Routine 0004 (Given - Provider: Dana Stevenson RN)0527 (Given - Provider: Dana Stevenson RN)1247 (Given - Provider: Maryjo Fam RN)1832 (Given - Provider: Mundo Meehan, MIKE)2341 (Given - Provider: Dana Stevenson RN) 0612 (Given - Provider: Dana Stevenson RN)1231 (Given - Provider: Mundo Meehan RN)1251 ([facility] Hold - Provider: Admin Adt - Reason: Transfer to a Procedural area)1515 ([facility] Unhold - Provider: Admin Adt)1720 (Given - Provider: Mundo Meehan RN)2357 (Given - Provider: Marques Mendoza, MIKE) 0600 (Not Given - Provider: Marques Mendoza RN - Reason: Patient/family refused)1305 (Given - Provider: Susie Fisher RN) aspirin chewable tablet 81 mg (CANCELED) 81 mg, Oral, DAILY, First dose on Thu02/23/18 at 0900, Until Discontinued, Routine 0854 (Given - Provider: Mundo Meehan RN) 0844 (Given - Provider: Mundo Meehan RN)1251 ([facility] Hold - Provider: Admin Adt - Reason: Transfer to a Procedural area)1454 ([facility] Unhold - Provider: Admin Adt) aspirin [...] - Reason: Transfer to a Procedural area)1515 ([facility] Unhold - Provider: Admin Adt)1720 (Given [...] Applied - Provider: Mundo Meehan RN) 1251 ([facility] Hold - Provider: Admin Adt - Reason: Transfer to a Procedural area)1515 ([facility] Unhold - Provider: Admin Adt) fentaNYL (DURAGESIC) 50 mcg/hr Patch Removal(Linked Group 1) Transdermal, EVERY 72 HOURS, First dose on Thu02/24/18 at 1200, Until Discontinued, Remove fentaNYL 50 mcg/hr patch 1200 (Patch Removed - Provider: Mundo Meehan RN) 1251 ([facility] Hold - Provider: Admin Adt - Reason: Transfer to a Procedural area)1515 ([facility] Unhold - Provider: Admin Adt) fentaNYL (DURAGESIC) [...] Fam RN) 1225 (Given - Provider: Mundo Meehan RN)1251 ([facility] Hold - Provider: Admin Adt - Reason: Transfer to a Procedural area)1515 ([facility] Unhold - Provider: Admin Adt) 1305 (Given - Provider: Susie Fisher, MIKE) gabapentin (NEURONTIN) capsule 900 mg 900 mg, Oral, NIGHTLY, First dose on Thu02/22/18 at 2100, Until Discontinued, Routine 2002 (Given - Provider: Dana Stevenson RN) 1251 ([facility] Hold - Provider: Admin Adt - Reason: Transfer to a Procedural area)1515 ([facility] Unhold - Provider: Admin Adt)2002 (Given - Provider: Marques Mendoza, MIKE) heparin (Porcine) subcutaneous injection 5,000 Units 5,000 Units, Subcutaneous, EVERY 12 HOURS SCHEDULED (2 times per day), First dose on Thu02/24/18 at 2100, Until Discontinued, Routine 2003 (Given - Provider: Dana Stevenson RN) 0843 (Given - Provider: Mundo Meehan RN)1251 ([facility] Hold - Provider: Admin Adt - Reason: Transfer to a Procedural area)1515 ([facility] Unhold - Provider: Admin Adt)2004 (Given - Provider: Marques Mendoza, MIKE) 0858 (Given - Provider: Susie Fisher, MIKE) ipratropium-albuterol (DUONEB) 0.5 mg-3 mg(2.5 mg base)/3 mL nebulizer solution 3 mL (CANCELED) 3 mL, Nebulization, EVERY 4 HOURS WHILE AWAKE, First dose (after last modification) on Thu02/23/18 at 1000, Until Discontinued, Routine 0527 (Given - Provider: Dana Stevenson RN)1120 (Given - Provider: Mundo Meehan RN) ipratropium-albuterol (DUONEB) 0.5 mg-3 mg(2.5 mg base)/3 [...] choice: ID Approval by Radha Bañuelos MD 0817 (Given - Provider: Mundo Meehan RN) 0844 (Given - Provider: Mundo Meehan RN)1251 ([facility] Hold - Provider: Admin Adt - Reason: Transfer to a Procedural area)1515 ([facility] Unhold - Provider: Admin Adt) 0900 (Given - Provider: Susie Fisher, MIKE) metoprolol (LOPRESSOR) tablet 12.5 mg 12.5 mg, Oral, EVERY 6 HOURS SCHEDULED, First dose (after last modification) on Thu02/22/18 at 1800, Until Discontinued, Hold for HR <60 Hold for SBP <90 Hold for MAP <65, Routine 0004 (Given - Provider: Dana Stevenson RN)0527 (Given - Provider: Dana Stevenson, MIKE)1247 (Given - Provider: Maryjo Fam RN)1833 (Given - Provider: Mundo Meehan, MIKE)2341 (Given - Provider: Dana Stevenson, MIKE) 0540 (Given - Provider: Dana Stevenson, MIKE)1224 (Given - Provider: Mundo Meehan RN)1251 ([facility] Hold - Provider: Admin Adt - Reason: Transfer to a Procedural area)1515 ([facility] Unhold - Provider: Admin Adt)1720 (Given - Provider: Mundo Meehan RN)2357 (Given - Provider: Marques Mendoza RN) 0520 (Given - Provider: Marques Mendoza RN)1305 (Given - Provider: Susie Fisher RN) nicotine (NICODERM [...] 0900, Routine 0858 (Given - Provider: Susie Fisher RN) predniSONE (DELTASONE) tablet 40 mg (COMPLETED) 40 mg, Oral, DAILY, 4 doses, First dose on Thu02/23/18 at 0900, Last dose on Thu02/26/18 at 0900, Routine 0854 (Given - Provider: Mundo Meehan RN) 0845 (Given - Provider: Mundo Meehan RN)1251 ([facility] Hold - Provider: Admin Adt - Reason: Transfer to a Procedural area)151 ([facility] Unhold - Provider: Admin Adt) 856 (Given - Provider: Susie Fisher RN) sodium chloride 0.9 % flush 5 mL [...] Adt)2002 (Given - Provider: Marques Mendoza RN) Continuous Medication Order 02/24/2018 02/25/2018 02/26/2018 sodium [...] PRN, Starting on 02/22/18 at 1706, Until Thu02/26/18 at 1648, Cough, Routine 1349 (Given - Provider: Mundo Meehan RN)1836 (Given - Provider: Mundo Meehan RN) 1251 ([facility] Hold - Provider: Admin Adt - Reason: Transfer to a Procedural area)1515 ([facility] Unhold - Provider: Admin Adt)2042 (Given - Provider: Marques Mendoza RN) 040 (Given - Provider: Marques Mendoza RN) fentaNYL 50 mcg/mL multi-dose injection (CANCELED) ONCE PRN, Starting on [place] 02/25/18 at 1314, Until [place] 02/25/18 at 1354, Cath (Intra-Procedure), Routine 1314 (Given - Provider: Tyrell Louis RN)1328 (Given - Provider: Danette Salgado, MIKE) heparin (porcine) injection (CANCELED) ONCE PRN, Starting on [place] 02/25/18 at 1329, Until [place] 02/25/18 at 1354, Cath (Intra-Procedure), Routine 1329 (Given - Provider: Danette Salgado, MIKE) iohexol (OMNIPAQUE) 350 mg/mL solution (CANCELED) ONCE PRN, Starting on [place] 02/25/18 at 1340, Until [place] 02/25/18 at 1354, Cath (Intra-Procedure), Routine 1340 (Given - Provider: Mc Mcclain MD) ipratropium-albuterol (DUONEB) 0.5 mg-3 mg(2.5 mg base)/3 mL nebulizer solution 3 mL 3 mL, Nebulization, EVERY 4 HOURS PRN, Starting on Thu02/24/18 at 1300, Until Thu02/26/18 at 1331, Wheezing, Routine 2004 (Given - Provider: Dana Stevenson RN) 1251 ([facility] Hold - Provider: Admin Adt - Reason: Transfer to a Procedural area)1515 ([facility] Unhold - Provider: Admin Adt) lidocaine (XYLOCAINE) 10 mg/mL (1 %) injection 3 mg 3 mg (0.3 mL), Subcutaneous, ONCE PRN, 1 dose, Starting on Thu02/22/18 at 1706, Until Thu02/26/18 at 1648, for discomfort with PIV insertion, Routine 1251 ([facility] Hold - Provider: Admin Adt - Reason: Transfer to a Procedural area)1515 ([facility] Unhold - Provider: Admin Adt) lidocaine [...] Do not exceed 16 mg/day., Routine 1251 ([facility] Hold - Provider: Admin Adt - Reason: Transfer to a Procedural area)1515 ([facility] Unhold - Provider: Admin Adt)1757 (Given - Provider: Mundo Meehan RN) 0905 (Given - Provider: Susie Fisher, MIKE)1308 (Given - Provider: Susie Fisher RN) midazolam (PF) (VERSED) 1 mg/mL multi-dose injection (CANCELED) ONCE PRN, Starting on Thu02/25/18 at 1314, Until Thu02/25/18 at 1354, Cath (Intra-Procedure), Routine 1314 (Given - Provider: Tyrell Louis RN) nicotine polacrilex (NICORETTE) gum 2 mg 2 mg, Buccal, EVERY 2 HOURS PRN, Starting on Thu02/23/18 at 1515, Until Thu02/26/18 at 1648, Smoking cessation, Chew gum slowly. Do not swallow. Maximum of 48 mg/day., Routine 1204 (Given - Provider: Mundo Meehan RN) 1251 ([facility] Hold - Provider: Admin Adt - Reason: Transfer to a Procedural area)1515 ([facility] Unhold - Provider: Admin Adt) nitroGLYcerin [...] last 24 to 72 hours., Routine 1251 ([facility] Hold - Provider: Admin Adt - Reason: Transfer to a Procedural area)1515 ([facility] Unhold - Provider: Admin Adt) nitroGLYcerin [...] provided on this medication record., Routine 1251 ([facility] Hold - Provider: Admin Adt - Reason: Transfer to a Procedural area)1515 ([facility] Unhold - Provider: Admin Adt) verapamil [...] patch documented in this encounter Care Teams Fire Claims Adjuster Relationship Specialty Start Date End Date Ana Dwyer MD [address] [place] [address] PCP - General Family Medicine 10/30/17 documented as of this encounter
[2024-09-30] MEDS: buPROPion-CR 100 MG TABCR PO ×2 (01:33→08:33)
[2024-09-30 02:45] LABS: MRSA PCR Negative (Negative)
[2024-09-30] MEDS: Normal Saline Flush 10 ML SYR (07:42)
[2024-09-30] MEDS: Famotidine 20 MG TAB PO (07:43)
[2024-09-30] MEDS: Citalopram 20 MG TAB 40 MG PO (07:43)
[2024-09-30] MEDS: Vitamins B Comp w/C TAB 1 TAB PO (07:43)
[2024-09-30] MEDS: predniSONE 20 MG TAB 40 MG PO (07:43)
[2024-09-30] MEDS: Potassium Chloride 10 MEQ CAPCR PO (07:43)
[2024-09-30] MEDS: Aspirin E.C. 81 MG TABEC PO (07:43)
[2024-09-30] MEDS: Metoprolol 12.5 MG TAB 50 MG PO ×2 (07:43→20:13)
[2024-09-30] MEDS: amLODIPine 10 MG TAB PO (07:43)
[2024-09-30] MEDS: Furosemide 20 MG TAB PO (07:43)
[2024-09-30 07:44] LABS: Abs Immature Grans 0.15 10^3/uL (0.0-0.06); Absolute Lymphocyte Count 0.88 10^3/uL (1.2-3.4); Absolute Monocyte Count 0.56 10^3/uL (0.1-0.8); Absolute Neutrophil Count 16.39 10^3/uL (1.2-6.7); Basophils % 0.2 %; HCT 32.2 % (36.0-46.0); HGB 10.4 g/dL (11.2-15.7); Immature Grans % 0.8 %; Lymphocytes % 4.9 %; MCH 27.4 pg (27.0-33.0); MCHC 32.3 % (32.0-36.0); MCV 85 fL (80-95); MPV 10.2 fL (8.0-11.0); Monocytes % 3.1 %; Platelet Count 326 10^3/uL (130-400); RDW 15.8 % (11.7-14.6); WBC 18.01 10^3/uL (4.4-10.8)
[2024-09-30] MEDS: Loratidine 10 MG TAB PO (07:44)
[2024-09-30] MEDS: Losartan 25 MG TAB PO (07:44)
[2024-09-30 07:45] LABS: Absolute Basophil Count 0.04 10^3/uL (0.0-0.2)
[2024-09-30] MEDS: Tiotropium Bromide-Respimat 10 PUFF INH 2 PUFF IH (07:52)
[2024-09-30] MEDS: Budesonide/Formoterol 80/4.5 6.9 GM 60 PUFF INH IH (07:52)
[2024-09-30] MEDS: Fluticasone NASAL SPRAY 16 GM BTL NS ×2 (08:33→20:13)
[2024-09-30 09:23] LABS: Bilirubin Negative (Negative); Blood Negative (Negative); Clarity Clear (Clear); Glucose Negative (Negative); Ketones Negative (Negative); Leukocyte Esterase Negative (Negative); Nitrite Negative (Negative); Specific Gravity 1.015 (1.005-1.025); Urobilinogen 0.2 mg/dL (Up to 0.2)
--- NOTE | 2024-09-30 09:32 | PDOC.CMIN ---
Date of service: 09/30/24 Time of Service: 09:32 Care Management Initial Assmt Advance Directives Advance Directives: Do you have an Advance Directive: N 01/20/13 13:42 AD On File at [facility]: N 12/16/12 12:26 Date Asked 09/29/24 09/29/24 20:20 AD Date Reviewed COLST On File at [facility] COLST Date Scanned Code Status Resuscitation Status DNR/DNI Care Team Visit Care Team Role Provider Type Unknown Unknown Primary Care Provider STAFF PHYSICIAN JURGEN Regalado Emergency Provider [employer]INE SET UP OPERATOR Mike Acevedo Admit Provider [facility] STAFF PHYSICIAN Attending Provider Social Determinants of Health Screening Social Determinants of Health last assessed: 09/30/24 Will the Patient Participate in the Screening?: Yes Do you worry about having a steady place to live?: no Problems where you live: no known problems In the past 12 months, have you had to go without electric, gas, oil or water in your home?: no Have you or anyone in your house had to go without enough food to eat?: no Has lack of transportation kept you from medical appointments or from doing things needed for daily living?: no Has anyone in your life made you feel unsafe or unsupported?: no How hard is it for you to pay for the very basics like food, housing, medical care, and heating? Would you say it is:: Somewhat hard Do you want help finding or keeping work or a job?: I do not need or want help If for any reason you need help with day-to-day activities such as bathing, preparing meals, shopping, managing finances, etc., do you get the help you need?: I get all the help I need How often do you feel lonely or isolated from those around you?: Rarely Do you speak a language other than Macedonian at home?: Yes Does the patient want assistance with any of the above?: No Health Related Social Needs Health related social needs: problems related to housing/economic circumstances (Z59.89), feeling lonely/isolated (Z60.8) and education (Z55.6) PFSH All Active Problems (Updated 09/30/24 @ 01:10 by SORAIDA ALFREDO) DVT prophylaxis (Acute) Hypoxic respiratory failure (Acute) Community acquired pneumonia (Acute) Respiratory failure (Acute) Pneumonia (Acute) Former cigarette smoker (Acute) Urinary incontinence (Acute) Polyosteoarthritis (Acute) Unspecified macular degeneration (Acute) Encounter for immunization (Acute) Allergic rhinitis due to animal (cat) (dog) hair and dander (Acute) Localized edema (Acute) Cough (Acute) Shortness of breath (Acute) Vascular dementia without behavioral disturbance (Acute) Cognitive communication deficit (Acute) Chronic combined systolic and diastolic heart failure (Acute) Irritable bowel syndrome with diarrhea (Acute) Major depressive disorder with single episode (Acute) Sprain of left upper arm (Acute) Head injury (Acute) Laceration of scalp (Acute) Removal of crystal (Acute) ASHD (arteriosclerotic heart disease) (Chronic) Lone atrial fibrillation (Acute) Atrial fibrillation (Chronic) NSTEMI (non-ST elevated myocardial infarction) (Acute) Coronary artery disease (Chronic) Dyslipidemia (Chronic) Hypertension (Chronic) Tobacco abuse (Chronic) Frequent headaches (Chronic) Colon polyps (Chronic) GERD (gastroesophageal reflux disease) (Chronic) Fibrocystic breast changes (Chronic) Osteoarthritis (Chronic) Depression (Chronic) Memory loss (Chronic) Insomnia (Chronic) PTSD (post-traumatic stress disorder) (Chronic) Seasonal allergies (Chronic) Chronic pain (Chronic) Fibromyalgia (Chronic) Vitamin B 12 deficiency (Chronic) COPD (chronic obstructive pulmonary disease) (Chronic) Medical History Hx of falling Bronchitis Adenocarcinoma of endometrium Other chronic pain fibromyalgia Hyperlipidemia Anxiety Benign hypertension Wrist fracture, right Surgical History Replacement of total knee joint (02/07/08) right Total replacement of hip (09/11/08) left hip, right hip, right ANGELINA revision femoral stem with open reduction and internal fixation of periprosthetic fracture with cerclage cables. Total replacement of hip (09/04/08) left hip, right hip, right ANGELINA revision femoral stem with open reduction and internal fixation of periprosthetic fracture with cerclage cables. Total replacement of hip (03/26/01) left hip, right hip, right ANGELINA revision femoral stem with open reduction and internal fixation of periprosthetic fracture with cerclage cables. Hyseterectomy, Total Laparoscopic w/ BSO Social History (Updated 09/30/24 @ 00:27 by Mike Acevedo) Smoking/Tobacco Use Status: Former Tobacco Use Quit Date: 05/01/16 Smoking risk assessment performed?: Yes Alcohol Intake: never Drug use: Never Substance use type: does not use Housing: assisted living facility Do you feel safe at home: Yes Do you feel safe in your relationship?: Yes Additional Social history: from [place], moved into [facility] in 2021
[2024-09-30] MEDS: Enoxaparin 40 MG/0.4 ML SYR SC (09:45)
--- NOTE | 2024-09-30 11:16 | NUR.NOTE ---
Nursing Note: Attempted to return call to Daniella at the [facility], no answer.
--- NOTE | 2024-09-30 11:54 | NUR.NOTE ---
Nursing Note: Call placed to Michael again as PHA needed clarification on citalopram order. Spoke to Chase, who verified the dose of 20mg daily PO of citalopram. Gave update on pt. PRimary nurse notified.
--- NOTE | 2024-09-30 12:46 | PGE_ITS ---
Date of Service Date of service: 09/30/24 Time of Service: 12:46 Assessment and Plan Assessment and plan (1) Community acquired pneumonia: Status: Acute Assessment and plan: continue levofloxacin day 2 due to severe PCN allergy, at home oxygen dose (2) Hypoxic respiratory failure: Status: Acute Assessment and plan: H/o COPD but no oxygen at baseline. Stabe on 2 liters via NC. Treating pneumonia and COPD. Follow (3) COPD (chronic obstructive pulmonary disease): Status: Chronic Assessment and plan: Treat with steroids and bronchodilators. Transition steroid to prednisone in AM. She states she doesn't use her Trelegy at home. She may benefit from RT teaching prior to discharge. (4) Coronary artery disease: Status: Chronic Assessment and plan: H/o CAD, but current symptoms do not appear cardiac. EKG and troponins r eassuring. H/o CHF, last echo with presevered LVEF after previous has reduced LVEF. Continue outpatient cardiac medications. (5) Atrial fibrillation: Status: Chronic Assessment and plan: currently in sinus. she is not anticoagulated and her [id number] is 6. Anticoagulation should certainly be considered, but will defer to PCP. (6) Former cigarette smoker: Status: Acute Assessment and plan: Encouraged ongoing cessation. She uses lozenges, can continue this prn. (7) DVT prophylaxis: Status: Acute Assessment and plan: enoxaparin (8) Discharge planning issues: Status: Acute Assessment and plan: PT consultation for discharge planning plan to discharge back to the [facility] bed 1 when medically stable. discussed with DR Lindsey Subjective Subjective Patient reports: no new complaints, tolerating liquids well, tolerating a regular diet and afebrile; denies shortness of breath Interval history since last seen: feels weak and tired today Exam Const General: cooperative and no acute distress HENMT Mouth: moist mucous membranes Eyes Conjunctivae: normal conjunctivae Sclera: normal sclerae Neck Neck: trachea midline and supple Resp Effort & Inspection: normal respiratory effort and able to speak in complete sentences Auscultation: diminished lung sounds Cardio Rate: regular rate Rhythm: regular rhythm GI Palpation: soft and nontender Skin General skin exam: no rashes or lesions noted Neuro General: patient alert, patient awake and tone normal Extrem General: normal to inspection and full ROM Psych Appearance: grossly normal Mental Status: mental status grossly normal Objective Last Vital Signs Temp 36.7 C 09/30/24 07:38 Pulse 81 09/30/24 07:38 Resp 20 09/30/24 07:38 BP 121/68 09/30/24 07:38 Pulse Ox 91 L 09/30/24 07:55 Laboratory Results - last 24 hr 09/29/24 09/29/24 09/29/24 20:18 21:09 21:12 WBC 24.63 H RBC 4.31 Hgb 11.7 Hct 37.4 MCV 87 MCH 27.1 MCHC 31.3 L RDW 15.9 H Plt Count 342 MPV 10.1 Immature Gran % 1.4 Neutrophils % 89.2 Lymphocytes % 4.8 Monocytes % 4.4 Eosinophils % 0.0 Basophils % 0.2 Nucleated RBC % 0.0 Absolute Neutrophils 21.97 H Absolute Lymphocytes 1.18 L Absolute Monocytes 1.08 H Absolute Eosinophils 0.00 Absolute Basophils 0.05 RBC Morphology Normal VBG Lactate 1.4 Sodium 137 Potassium 4.0 Chloride 101 Carbon Dioxide 28.9 Anion Gap 7.1 BUN 9 Creatinine 0.8 Est GFR (CKD-EPI 2020) 73.52 Glucose 152 H Calcium 9.7 Total Bilirubin 0.63 AST 7 L ALT 14 Alkaline Phosphatase 126 H Troponin I 6 8 NT-Pro-B Natriuret Pep 547 H Total Protein 7.3 Albumin 2.9 L Lipase 9 Urine Color Urine Clarity Urine pH Ur Specific [place] Urine Protein Urine Ketones Urine Blood Urine Nitrite Urine Bilirubin Urine Urobilinogen Ur Leukocyte Esterase Urine Glucose COVID-19 Source NASOPHARYNX SARS-CoV-2 (PCR) Negative Influenza Type A (PCR) Negative Influenza Type B (PCR) Negative RSV (PCR) Negative MRSA (TEM-PCR) 09/29/24 09/30/24 09/30/24 23:58 00:50 06:25 WBC 18.01 H RBC 3.80 L Hgb 10.4 L Hct 32.2 L MCV 85 MCH 27.4 MCHC 32.3 RDW 15.8 H Plt Count 326 MPV 10.2 Immature Gran % 0.8 Neutrophils % 91.0 Lymphocytes % 4.9 Monocytes % 3.1 Eosinophils % 0.0 Basophils % 0.2 Nucleated RBC % 0.0 Absolute Neutrophils 16.39 H Absolute Lymphocytes 0.88 L Absolute Monocytes 0.56 Absolute Eosinophils 0.00 Absolute Basophils 0.04 RBC Morphology VBG Lactate Sodium Potassium Chloride Carbon Dioxide Anion Gap BUN Creatinine Est GFR (CKD-EPI 2020) Glucose Calcium Total Bilirubin AST ALT Alkaline Phosphatase Troponin I < 4 NT-Pro-B Natriuret Pep Total Protein Albumin Lipase Urine Color Urine Clarity Urine pH Ur Specific [place] Urine Protein Urine Ketones Urine Blood Urine Nitrite Urine Bilirubin Urine Urobilinogen Ur Leukocyte Esterase Urine Glucose COVID-19 Source SARS-CoV-2 (PCR) Influenza Type A (PCR) Influenza Type B (PCR) RSV (PCR) MRSA (TEM-PCR) Negative 09/30/24 09:10 WBC RBC Hgb Hct MCV MCH MCHC RDW Plt Count MPV Immature Gran % Neutrophils % Lymphocytes % Monocytes % Eosinophils % Basophils % Nucleated RBC % Absolute Neutrophils Absolute Lymphocytes Absolute Monocytes Absolute Eosinophils Absolute Basophils RBC Morphology VBG Lactate Sodium Potassium Chloride Carbon Dioxide Anion Gap BUN Creatinine Est GFR (CKD-EPI 2020) Glucose Calcium Total Bilirubin AST ALT Alkaline Phosphatase Troponin I NT-Pro-B Natriuret Pep Total Protein Albumin Lipase Urine Color Yellow Urine Clarity Clear Urine pH 6.0 Ur Specific [place] 1.015 Urine Protein Negative Urine Ketones Negative Urine Blood Negative Urine Nitrite Negative Urine Bilirubin Negative Urine Urobilinogen 0.2 Ur Leukocyte Esterase Negative Urine Glucose Negative COVID-19 Source SARS-CoV-2 (PCR) Influenza Type A (PCR) Influenza Type B (PCR) RSV (PCR) MRSA (TEM-PCR) Time Spent with Patient Time Spent with Patient: 35-49 minutes Time was spent: obtaining and/or reviewing separately otained hiistory, ordering medications,tests, procedures, indepentently interpreting results and counseling the patient
--- NOTE | 2024-09-30 13:59 | PDOC.CMIN ---
Date of service: 09/30/24 Time of Service: 12:00 Care Management Initial Assmt Initial Assessment Reason for Hospitalization: pneumonia, hypoxic respiratory failure Functional Status/Living Situation Patient Presentation: Danette was admitted through the ED with 4days of feeling more short of breath and coughing. She also had c/o runny nose, feeling tired, lightheaded and nauseous. CXR showed R upper, middle and lower lobe infiltrates. She was placed on O2 nc, scheduled nebs, given antibiotics, 500ml fluid bolus, and solumedrol. Today Danette was sitting up in the bedside chair when CM met with her. She was pleasant, and engaged readily. Daentte lives at the [facility]. She will be there 3 years in December. She was initially placed for frequent falls at home while living independently. Danette was wearing 1L of nc O2. She stated that she is feeling a little better, but not much. CM let her know that ERICK Evans from the [facility] called to check on her, she was pleased with that. Town of Residence: [place] at [facility] Significant Other/Family: Local (daughterMignon, lives in [place] [facility], and visits Danette every weekend. DaughterJayla and son Ken live in [place], but are not close by. They do keep in touch. 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 She stated that she is not much for group activities, and doesnt generally join in Medications Medication Management: No Issues/Barriers identified Physical Functioning/Mobility Assistive Device: walker, wheel chair. doesn't really ambulate, but is able to transfer self bed - chair Advance Directives Advance Directives: Do you have an Advance Directive: N 01/20/13 13:42 AD On File at [facility]: N 12/16/12 12:26 Date Asked 09/29/24 09/29/24 20:20 AD Date Reviewed COLST On File at [facility] COLST Date Scanned Code Status Resuscitation Status DNR/DNI Insurance Coverage/Financial Issues Insurance: Medicare and Medicaid Care Team Visit Care Team Role Provider Type Unknown Unknown Primary Care Provider STAFF PHYSICIAN InPatient Wojciech Daina Other Providers OTHER JURGEN Regalado Emergency Provider PHYSICIANS WO[employer] HAT SANDING MACHINE OPERATOR Mike Acevedo Admit Provider MD SEXTON STAFF PHYSICIAN Attending Provider Other: PCP is the provider at the [facility] Discharge Potential Discharge Needs: PT Evaluation and PCP F/U Appt Anticipated Barriers to Discharge: None Identified Patient/Family Education Needs: Review discharge instructions, discuss Ask Me Three Transportation: RCT RCT Transportation: Wheel chair van Plan: Anticipate that Danette will return to the [facility] on Tuesday 10/03. Danette was informed by CM that generally there are no transfers over the weekend, and she will be her for the weekend. She will transport via RCT w/c van, follow up with the facility provider, and continue per her plan of care. CM will continue to follow. Social Determinants of Health Screening Social Determinants of Health last assessed: 09/30/24 Will the Patient Participate in the Screening?: Yes Do you worry about having a steady place to live?: no Problems where you live: no known problems In the past 12 months, have you had to go without electric, gas, oil or water in your home?: no Have you or anyone in your house had to go without enough food to eat?: no Has lack of transportation kept you from medical appointments or from doing things needed for daily living?: no Has anyone in your life made you feel unsafe or unsupported?: no How hard is it for you to pay for the very basics like food, housing, medical care, and heating? Would you say it is:: Somewhat hard Do you want help finding or keeping work or a job?: I do not need or want help If for any reason you need help with day-to-day activities such as bathing, preparing meals, shopping, managing finances, etc., do you get the help you need?: I get all the help I need How often do you feel lonely or isolated from those around you?: Rarely Do you speak a language other than Uzbek at home?: Yes Does the patient want assistance with any of the above?: No Health Related Social Needs Health related social needs: problems related to housing/economic circumstances (Z59.89), feeling lonely/isolated (Z60.8) and education (Z55.6) PFSH All Active Problems (Updated 09/30/24 @ 12:54 by Hiral Norton NP) Discharge planning issues (Acute) DVT prophylaxis (Acute) Hypoxic respiratory failure (Acute) Community acquired pneumonia (Acute) Respiratory failure (Acute) Pneumonia (Acute) Former cigarette smoker (Acute) Urinary incontinence (Acute) Polyosteoarthritis (Acute) Unspecified macular degeneration (Acute) Encounter for immunization (Acute) Allergic rhinitis due to animal (cat) (dog) hair and dander (Acute) Localized edema (Acute) Cough (Acute) Shortness of breath (Acute) Vascular dementia without behavioral disturbance (Acute) Cognitive communication deficit (Acute) Chronic combined systolic and diastolic heart failure (Acute) Irritable bowel syndrome with diarrhea (Acute) Major depressive disorder with single episode (Acute) Sprain of left upper arm (Acute) Head injury (Acute) Laceration of scalp (Acute) Removal of crystal (Acute) ASHD (arteriosclerotic heart disease) (Chronic) Lone atrial fibrillation (Acute) Atrial fibrillation (Chronic) NSTEMI (non-ST elevated myocardial infarction) (Acute) Coronary artery disease (Chronic) Dyslipidemia (Chronic) Hypertension (Chronic) Tobacco abuse (Chronic) Frequent headaches (Chronic) Colon polyps (Chronic) GERD (gastroesophageal reflux disease) (Chronic) Fibrocystic breast changes (Chronic) Osteoarthritis (Chronic) Depression (Chronic) Memory loss (Chronic) Insomnia (Chronic) PTSD (post-traumatic stress disorder) (Chronic) Seasonal allergies (Chronic) Chronic pain (Chronic) Fibromyalgia (Chronic) Vitamin B 12 deficiency (Chronic) COPD (chronic obstructive pulmonary disease) (Chronic) Medical History Hx of falling Bronchitis Adenocarcinoma of endometrium Other chronic pain fibromyalgia Hyperlipidemia Anxiety Benign hypertension Wrist fracture, right Surgical History Replacement of total knee joint (02/07/08) right Total replacement of hip (09/11/08) left hip, right hip, right ANGELINA revision femoral stem with open reduction and internal fixation of periprosthetic fracture with cerclage cables. Total replacement of hip (09/04/08) left hip, right hip, right ANGELINA revision femoral stem with open reduction and internal fixation of periprosthetic fracture with cerclage cables. Total replacement of hip (03/26/01) left hip, right hip, right ANGELINA revision femoral stem with open reduction and internal fixation of periprosthetic fracture with cerclage cables. Hyseterectomy, Total Laparoscopic w/ BSO Social History (Updated 09/30/24 @ 00:27 by Mike Acevedo) Smoking/Tobacco Use Status: Former Tobacco Use Quit Date: 05/01/16 Smoking risk assessment performed?: Yes Alcohol Intake: never Drug use: Never Substance use type: does not use Housing: assisted living facility Do you feel safe at home: Yes Do you feel safe in your relationship?: Yes Additional Social history: from [place], moved into [facility] in 2021 Readmission Within the Past 30 Days Yes or No: No
[2024-09-30] MEDS: Normal Saline Flush 10 ML SYR IVP ×2 (14:49→20:14)
--- NOTE | 2024-09-30 14:49 | PHA.REVIEW2 ---
Pharmacy Admission Review Admission Clinical Review Admission Pharmacy Review: Discharge planning issues (Acute) DVT prophylaxis (Acute) Hypoxic respiratory failure (Acute) Community acquired pneumonia (Acute) Former cigarette smoker (Acute) Penicillins Allergy (Severe, Unverified 09/29/24 20:19) Anaphylaxsis codeine Allergy (Unknown, Verified 09/29/24 20:19) Unknown Resuscitation Status DNR/DNI Height 5 ft Weight 84.822 kg Pharmacy Admission Review Renal Dosing Renal Dosing: BUN 9 mg/dL (7-18) 09/29/24 20:18 Creatinine 0.8 mg/dL (0.55-1.02) 09/29/24 20:18 Medications needing adjustments: Intervened (CrCl 41.92 mL/min) List of meds needing interventions: Changed levofloxacin order rom 75mg q24h to 750mg q48h Anticoagulation Anticoagulation: Hgb 10.4 g/dL (11.2-15.7) L 09/30/24 06:25 Hct 32.2 % (36.0-46.0) L 09/30/24 06:25 Plt Count 326 10^3/uL (130-400) 09/30/24 06:25 Creatinine 0.8 mg/dL (0.55-1.02) 09/29/24 20:18 DVT Prophylaxis: Reviewed (Hgb decreased from 11.7) Medications: Enoxaparin (40mg daily) Relevant Labs Relevant Labs: Sodium 137 mmol/L (136-145) 09/29/24 20:18 Potassium 4.0 mmol/L (3.5-5.1) 09/29/24 20:18 Chloride 101 mmol/L (98-107) 09/29/24 20:18 Electrolytes, C-Reactive P, ESR: Reviewed Cardiac Review Cardiac Review: Troponin I < 4 ng/L (<or=51) 09/29/24 23:58 NT-Pro-B Natriuret Pep 547 pg/mL (<300) H 09/29/24 20:18 BP, HR, EF%: Reviewed (BP and HR WNL) List meds needing interventions: Has order for amlodipine 10mg daily, furosemide 20mg daily, losartan 25mg daily and metoprolol 50mg BID QTc Review QTc: Reviewed (424 from 09/29/24) IV to PO Switch IV Medications: Reviewed (levofloxacin) Home Meds Home Med List reviewed: Reviewed Relevent Home Meds Not ordered & why?: Vitamin B 12 (monthly injection), Trelegy (has order for Symbicort and Spiriva per pharmacy protocol) and nitroglycerin (PRN) Updated home med list: Changed bupropion on home med list from CR 100mg BID to XL 300mg daily based on fill history. Changed order to match. Changed citalopram from 40mg daily to 20mg on home med list and changed current order. Dose was confirmed with patient by nurse. Current Meds Current Medication Order Review: Intervened Comments: Added IV admission order set Pharmacy Antibiotic Review Relevant Labs: WBC 18.01 10^3/uL (4.4-10.8) H 09/30/24 06:25 Temperature 36.8 C Temperature 36.7 C Temperature 36.4 C Pharmacy Antibiotic Activity: C/S review and Reviewed, no change Comments: Patient is on levofloxacin, day 2, for pneumonia. WBC decreased from 24.63 and blood cultures pending.
--- NOTE | 2024-09-30 16:51 | CHAPLAIN ---
Danette was sitting up in the chair when I visited. She said she's feeling so-so and actually felt better this morning than she does right now. Danette lives at the [facility]. Her daughter, Mignon Rooney, works at [employer] in Environmental Services and was with Danette last night in the ED. I explained my role and offered support.
[2024-10-01 02:56] VITALS: BP 148/83; PULSE 74; RESP 15; TEMP 36.4; O2SAT 92
[2024-10-01 07:36] LABS: Abs Immature Grans 0.09 10^3/uL (0.0-0.06); Absolute Basophil Count 0.02 10^3/uL (0.0-0.2); Absolute Eosinophil Count 0.05 10^3/uL (0.0-0.7); Absolute Lymphocyte Count 2.06 10^3/uL (1.2-3.4); Absolute Neutrophil Count 13.22 10^3/uL (1.2-6.7); Basophils % 0.1 %; Eosinophils % 0.3 %; HCT 33.8 % (36.0-46.0); HGB 10.9 g/dL (11.2-15.7); Immature Grans % 0.5 %; Lymphocytes % 12.5 %; MCH 27.3 pg (27.0-33.0); MCHC 32.2 % (32.0-36.0); MCV 85 fL (80-95); MPV 10.1 fL (8.0-11.0); Monocytes % 6.4 %; Neutrophils % 80.2 %; Platelet Count 406 10^3/uL (130-400); RBC 3.99 10^6/uL (3.93-5.22); RDW 15.7 % (11.7-14.6); RDW-SD 48.2 fL; WBC 16.49 10^3/uL (4.4-10.8)
[2024-10-01 07:38] LABS: Absolute Monocyte Count 1.06 10^3/uL (0.1-0.8)
[2024-10-01 07:54] VITALS: BP 137/82; PULSE 77; RESP 22; TEMP 36.7; O2SAT 93
[2024-10-01 07:56] LABS: BUN 14 mg/dL (7-18); CREATININE 0.6 mg/dL (0.55-1.02); Calcium 9.1 mg/dL (8.5-10.1); Chloride 102 mmol/L (98-107); Estimated GFR 89.56 (mL/min/1.73m2); Glucose 110 mg/dL (74-106); Potassium 3.9 mmol/L (3.5-5.1); Sodium 138 mmol/L (136-145)
[2024-10-01] MEDS: Fluticasone NASAL SPRAY 16 GM BTL NS ×2 (07:58→21:30)
[2024-10-01] MEDS: amLODIPine 10 MG TAB PO (07:58)
[2024-10-01] MEDS: buPROPion-XL 150 MG TABCR 300 MG PO (07:58)
[2024-10-01] MEDS: predniSONE 20 MG TAB 40 MG PO (07:58)
[2024-10-01] MEDS: Aspirin E.C. 81 MG TABEC PO (07:58)
[2024-10-01] MEDS: Loratidine 10 MG TAB PO (07:59)
[2024-10-01] MEDS: Potassium Chloride 10 MEQ CAPCR PO (07:59)
[2024-10-01] MEDS: Famotidine 20 MG TAB PO (07:59)
[2024-10-01] MEDS: Citalopram 20 MG TAB PO (07:59)
[2024-10-01] MEDS: Furosemide 20 MG TAB PO (07:59)
[2024-10-01] MEDS: Metoprolol 12.5 MG TAB 50 MG PO ×2 (07:59→21:30)
[2024-10-01] MEDS: Vitamins B Comp w/C TAB 1 TAB PO (07:59)
[2024-10-01] MEDS: Losartan 25 MG TAB PO (07:59)
[2024-10-01] MEDS: Normal Saline Flush 10 ML SYR IVP ×3 (08:00→23:18)
[2024-10-01] MEDS: Budesonide/Formoterol 80/4.5 6.9 GM 60 PUFF INH IH ×2 (08:35→20:00)
[2024-10-01] MEDS: Tiotropium Bromide-Respimat 10 PUFF INH 2 PUFF IH ×2 (08:35→20:00)
[2024-10-01 08:40] VITALS: O2SAT 92
[2024-10-01] MEDS: Enoxaparin 40 MG/0.4 ML SYR SC (10:48)
[2024-10-01 11:13] VITALS: BP 134/72; PULSE 71; RESP 20; TEMP 36.8; O2SAT 92
--- NOTE | 2024-10-01 12:04 | PGE_ITS ---
Date of Service Date of service: 10/01/24 Time of Service: 12:04 Assessment and Plan Assessment and plan (1) Community acquired pneumonia: Status: Acute Assessment and plan: Continues to respond with white count trending downward, afebrile, and no increased oxygen requirements continue levofloxacin day 3 due to severe PCN allergy, Continue pulmonary toilet with coughing deep breathing Acapella and DuoNebs as needed (2) Hypoxic respiratory failure: Status: Chronic Assessment and plan: H/o COPD but no oxygen at baseline. Treating pneumonia and COPD. Follow (3) COPD (chronic obstructive pulmonary disease): Status: Chronic Assessment and plan: Treat with steroids and bronchodilators. Stable on oral prednisone She states she doesn't use her Trelegy at home. She may benefit from RT teaching prior to discharge. (4) Coronary artery disease: Status: Chronic Assessment and plan: H/o CAD, but current symptoms do not appear cardiac. EKG and troponins reassuring. H/o CHF, last echo with presevered LVEF after previous has reduced LVEF. Continue outpatient cardiac medications. (5) Atrial fibrillation: Status: Chronic Assessment and plan: currently in sinus. she is not anticoagulated and her [id number] is 6. Anticoagulation should certainly be considered, but will defer to PCP. (6) Former cigarette smoker: Status: Acute Assessment and plan: Encouraged ongoing cessation. She uses lozenges, can continue this prn. (7) DVT prophylaxis: Status: Acute Assessment and plan: enoxaparin (8) Discharge planning issues: Status: Acute Assessment and plan: PT consultation for discharge planning plan to discharge back to the [facility] bed 1 when medically stable. discussed with DR Lindsey Subjective Subjective Patient reports: no new complaints, feels better, tolerating liquids well, tolerating a regular diet and afebrile; denies shortness of breath Exam Const General: cooperative and no acute distress HENMT Mouth: moist mucous membranes Eyes Conjunctivae: normal conjunctivae Sclera: normal sclerae Neck Neck: trachea midline and supple Resp Effort & Inspection: normal respiratory effort and able to speak in complete sentences Auscultation: diminished lung sounds Cardio Rate: regular rate Rhythm: regular rhythm GI Palpation: soft and nontender Skin General skin exam: no rashes or lesions noted Neuro General: patient alert, patient awake and tone normal Extrem General: normal to inspection and full ROM Psych Appearance: grossly normal Mental Status: mental status grossly normal Objective Last Vital Signs Temp 36.8 C 10/01/24 11:13 Pulse 71 10/01/24 11:13 Resp 20 10/01/24 11:13 BP 134/72 10/01/24 11:13 Pulse Ox 92 10/01/24 11:13 Laboratory Results - last 24 hr 10/01/24 06:50 WBC 16.49 H RBC 3.99 Hgb 10.9 L Hct 33.8 L MCV 85 MCH 27.3 MCHC 32.2 RDW 15.7 H Plt Count 406 H MPV 10.1 Immature Gran % 0.5 Neutrophils % 80.2 Lymphocytes % 12.5 Monocytes % 6.4 Eosinophils % 0.3 Basophils % 0.1 Nucleated RBC % 0.0 Absolute Neutrophils 13.22 H Absolute Lymphocytes 2.06 Absolute Monocytes 1.06 H Absolute Eosinophils 0.05 Absolute Basophils 0.02 Sodium 138 Potassium 3.9 Chloride 102 Carbon Dioxide 29.0 Anion Gap 7.0 BUN 14 Creatinine 0.6 Est GFR (CKD-EPI 2020) 89.56 Glucose 110 H Calcium 9.1 Time Spent with Patient Time Spent with Patient: 35-49 minutes Time was spent: preparing to see the patient(eg.review tests), obtaining and/or reviewing separately otained hiistory, ordering medications,tests, procedures, indepentently interpreting results and counseling the patient
[2024-10-01] MEDS: MAGNESIUM SULFATE 1 GM/100 ML BAG IV_INF (12:20)
[2024-10-01 15:15] VITALS: BP 119/68; PULSE 79; RESP 20; TEMP 37; O2SAT 91
[2024-10-01] MEDS: Cholestyramine/Aspartame PKT 1 EACH PO (16:32)
[2024-10-01 20:04] VITALS: BP 131/67; PULSE 82; RESP 15; TEMP 36.5; O2SAT 92
[2024-10-01] MEDS: levoFLOXacin 750 MG/150 ML BAG 100 MG IVPB (21:29)
[2024-10-01] MEDS: Gabapentin 300 MG CAP 600 MG PO (21:30)
[2024-10-02] VITALS (8 sets, daily range): BP systolic 129–156; BP diastolic 75–84; PULSE 70–86; RESP 15–19; TEMP 36.6–37.1; O2SAT 89–94
[2024-10-02] MEDS: guaiFENesin 200 MG/10 ML CUP PO ×2 (01:08→20:04)
[2024-10-02] MEDS: Tiotropium Bromide-Respimat 10 PUFF INH 2 PUFF IH ×2 (08:21→20:24)
[2024-10-02] MEDS: Budesonide/Formoterol 80/4.5 6.9 GM 60 PUFF INH IH ×2 (08:22→20:24)
[2024-10-02] MEDS: Citalopram 20 MG TAB PO (08:45)
[2024-10-02] MEDS: Metoprolol 12.5 MG TAB 50 MG PO ×2 (08:59→20:03)
[2024-10-02] MEDS: Vitamins B Comp w/C TAB 1 TAB PO (08:59)
[2024-10-02] MEDS: Loratidine 10 MG TAB PO (08:59)
[2024-10-02] MEDS: Famotidine 20 MG TAB PO (08:59)
[2024-10-02] MEDS: Furosemide 20 MG TAB PO (09:00)
[2024-10-02] MEDS: buPROPion-XL 150 MG TABCR 300 MG PO (09:00)
[2024-10-02] MEDS: Losartan 25 MG TAB PO (09:00)
[2024-10-02] MEDS: Potassium Chloride 10 MEQ CAPCR PO (09:00)
[2024-10-02] MEDS: predniSONE 20 MG TAB 40 MG PO (09:00)
[2024-10-02] MEDS: amLODIPine 10 MG TAB PO (09:01)
[2024-10-02] MEDS: Enoxaparin 40 MG/0.4 ML SYR SC (09:01)
[2024-10-02] MEDS: Aspirin E.C. 81 MG TABEC PO (09:01)
[2024-10-02] MEDS: Fluticasone NASAL SPRAY 16 GM BTL NS ×2 (11:04→20:04)
--- NOTE | 2024-10-02 11:27 | W.PM.PROGNOT ---
Date of Service Date of service: 10/02/24 Time of Service: 11:27 Assessment and Plan Assessment and plan (1) Community acquired pneumonia: Status: Acute Assessment and plan: Continues to respond with white count trending downward, afebrile, and no increased oxygen requirements continue levofloxacin day 4 due to severe PCN allergy, Continue pulmonary toilet with coughing deep breathing Acapella and DuoNebs as needed (2) Hypoxic respiratory failure: Status: Chronic Assessment and plan: H/o COPD but no oxygen at baseline. Treating pneumonia and COPD. Follow (3) COPD (chronic obstructive pulmonary disease): Status: Chronic Assessment and plan: Treat with steroids and bronchodilators. Stable on oral prednisone She states she doesn't use her Trelegy at home. She may benefit from RT teaching prior to discharge. (4) Coronary artery disease: Status: Chronic Assessment and plan: H/o CAD, but current symptoms do not appear cardiac. EKG and troponins reassuring. H/o CHF, last echo with presevered LVEF after previous has reduced LVEF. Continue outpatient cardiac medications. (5) Atrial fibrillation: Status: Chronic Assessment and plan: currently in sinus. she is not anticoagulated and her [id number] is 6. Anticoagulation should certainly be considered, but will defer to PCP. (6) Former cigarette smoker: Status: Acute Assessment and plan: Encouraged ongoing cessation. She uses lozenges, can continue this prn. (7) DVT prophylaxis: Status: Acute Assessment and plan: enoxaparin (8) Discharge planning issues: Status: Acute Assessment and plan: PT following plan to discharge back to the [facility] bed 1 tomorrow if remains medically stable discussed with DR Lindsey Subjective Subjective Patient reports: no new complaints, feels better, tolerating liquids well, tolerating a regular diet, voiding w/o difficulty and afebrile; denies shortness of breath Interval history since last seen: Remained stable on room air working with physical therapy today Exam Const General: cooperative and no acute distress HENMT Mouth: moist mucous membranes Eyes Conjunctivae: normal conjunctivae Sclera: normal sclerae Neck Neck: trachea midline and supple Resp Effort & Inspection: normal respiratory effort and able to speak in complete sentences Auscultation: diminished lung sounds Cardio Rate: regular rate Rhythm: regular rhythm GI Palpation: soft and nontender Skin General skin exam: no rashes or lesions noted Neuro General: patient alert, patient awake and tone normal Extrem General: normal to inspection and full ROM Psych Appearance: grossly normal Mental Status: mental status grossly normal Objective Last Vital Signs Temp 36.7 C 10/02/24 08:09 Pulse 83 10/02/24 08:09 Resp 19 10/02/24 08:09 BP 140/82 10/02/24 08:09 Pulse Ox 94 10/02/24 09:08 Time Spent with Patient Time Spent with Patient: 35-49 minutes Time was spent: preparing to see the patient(eg.review tests), obtaining and/or reviewing separately otained hiistory, ordering medications,tests, procedures, indepentently interpreting results and counseling the patient
--- NOTE | 2024-10-02 11:37 | PT.INIE ---
PT Notes Visit Reasons: Pneumonia, Hypoxic Respiratory Failure Inpatient Physical Therapy Evaluation Date: 10/02/24 Referring Doctor: Hiral Norton PT Orders: PT CONSULT Precautions: N/A Patient Profile/Admitting Diagnosis: Pneumonia, Hypoxic Respiratory Failure Subjective: Pt is very hesitant to participate in the PT evaluation today but does end up agreeing. She states she lives at the [facility]. She always has someone with her when she gets up as she has a long fall history in the past. She never manages stairs. She has a RW that she uses for all mobility. She does not feel well today and hopes to be left alone after this. Objective: General Observation: Sitting up in the chair, initially not wanting to be bothered. Mental Status: A+Ox4 Pain: No complaints Vital Signs: Monitored by nursing ROM: WFL throughout bilat UEs and LEs Strength: Able to perform seated LAQs and DF/PF bilaterally Bed Mobility/Transfers: sit to stand w/CGA stand to sit w/CGA Gait: ambulates 80 ft w/RW and CGA, increased UE support onto RW Balance: Static Sitting: good Dynamic Sitting: good Static Standing: fair Dynamic Standing: fair Special Tests: Mobility Limitations Standardized Measure [facility] AM-PAC 6 clicks Basic Mobility Inpatient Short Form: Raw Score: 18 CMS Score: 46.58% Informed Consent/Education: Patient instructed in purpose of PT consult and plan of care. Assessment: Patient is currently functioning at her baseline functional levels and can return home when medically cleared. She is limited functionally but does have a safe living environment at home that includes 24/7 caregivers. She will not need to manage stairs. She is a fall risk and should continue to be monitored when on her feet at all times while in the hospital and when returning home. She will no longer be followed by PT services. Patient is assessed as a [x] Low 80800 complexity based on the following: History: Low Examination: Low Presentation: Low Decision Making: Low Goals: Demonstrates her functional baseline today, no goals indicated. Plan of Care/Treatment Plan: 1-2x/day, 7 days/week x 1 week. Plan of care has been reviewed with the ADMINISTRATIVE SERVICES OFFICER providing the service under Physical Therapy direction. Initiate Physical Therapy intervention for strengthening, bed mobility, transfers, gait, stairs, balance training, use of assistive device. DISCHARGE RECOMMENDATIONS: [x] Home with no services TREATMENT CODE/TIME: Low Complexity Evaluation [id number] (25 min)
[2024-10-02] MEDS: Cholestyramine/Aspartame PKT 1 EACH PO (16:55)
[2024-10-02] MEDS: Acetaminophen 325 MG TAB PO (20:03)
[2024-10-02] MEDS: Gabapentin 300 MG CAP 600 MG PO (20:04)
[2024-10-03 03:46] VITALS: BP 159/80; PULSE 71; RESP 16; TEMP 36.6; O2SAT 95
[2024-10-03 07:10] LABS: Abs Immature Grans 0.15 10^3/uL (0.0-0.06); Absolute Basophil Count 0.02 10^3/uL (0.0-0.2); Absolute Lymphocyte Count 3.24 10^3/uL (1.2-3.4); Absolute Monocyte Count 0.94 10^3/uL (0.1-0.8); Absolute Neutrophil Count 6.48 10^3/uL (1.2-6.7); Basophils % 0.2 %; Eosinophils % 0.9 %; HCT 36.6 % (36.0-46.0); HGB 11.6 g/dL (11.2-15.7); Immature Grans % 1.4 %; Lymphocytes % 29.6 %; MCHC 31.7 % (32.0-36.0); MCV 85 fL (80-95); MPV 9.1 fL (8.0-11.0); Monocytes % 8.6 %; Neutrophils % 59.3 %; Platelet Count 428 10^3/uL (130-400); RBC 4.29 10^6/uL (3.93-5.22); RDW 15.7 % (11.7-14.6); WBC 10.93 10^3/uL (4.4-10.8)
[2024-10-03 07:21] LABS: Anion Gap 5.9 mmol/L (3-11); BUN 11 mg/dL (7-18); CO2 29.1 mmol/L (21.0-32.0); CREATININE 0.5 mg/dL (0.55-1.02); Chloride 103 mmol/L (98-107); Estimated GFR 93.59 (mL/min/1.73m2); Glucose 82 mg/dL (74-106); Potassium 3.6 mmol/L (3.5-5.1); Sodium 138 mmol/L (136-145)
[2024-10-03] MEDS: buPROPion-XL 150 MG TABCR 300 MG PO (07:35)
[2024-10-03] MEDS: Potassium Chloride 10 MEQ CAPCR PO (07:35)
[2024-10-03] MEDS: Furosemide 20 MG TAB PO (07:35)
[2024-10-03] MEDS: Metoprolol 12.5 MG TAB 50 MG PO (07:35)
[2024-10-03] MEDS: Aspirin E.C. 81 MG TABEC PO (07:35)
[2024-10-03] MEDS: Losartan 25 MG TAB PO (07:35)
[2024-10-03] MEDS: Vitamins B Comp w/C TAB 1 TAB PO (07:36)
[2024-10-03] MEDS: Famotidine 20 MG TAB PO (07:36)
[2024-10-03] MEDS: amLODIPine 10 MG TAB PO (07:36)
[2024-10-03] MEDS: Loratidine 10 MG TAB PO (07:36)
[2024-10-03] MEDS: predniSONE 20 MG TAB 40 MG PO (07:36)
[2024-10-03] MEDS: Citalopram 20 MG TAB PO (07:36)
[2024-10-03 07:42] VITALS: BP 164/84; PULSE 70; RESP 16; TEMP 37; O2SAT 92
[2024-10-03] MEDS: Budesonide/Formoterol 80/4.5 6.9 GM 60 PUFF INH IH (08:47)
[2024-10-03] MEDS: Tiotropium Bromide-Respimat 10 PUFF INH 2 PUFF IH (08:48)
--- NOTE | 2024-10-03 10:07 | DSE_ITS ---
Date of service: 10/03/24 Time of Service: 10:07 DS: Diagnosis Discharge Diagnosis (1) Community acquired pneumonia: Status: Acute (2) Hypoxic respiratory failure: Status: Chronic (3) COPD (chronic obstructive pulmonary disease): Status: Chronic (4) Coronary artery disease: Status: Chronic (5) Atrial fibrillation: Status: Chronic (6) Former cigarette smoker: Status: Acute (7) DVT prophylaxis: Status: Acute (8) Discharge planning issues: Status: Acute Discharge Plan Disposition [facility] Condition: Improving Discharge Details Reason For Visit: Pneumonia, Hypoxic Respiratory Failure Admit Date/Time: 09/29/24 22:45 Admit Provider: Mike Acevedo Attending Provider: Mike Acevedo Primary Care Provider: Unknown,Unknown Hospital Course Hospital Course: This 82 years old female patient with past medical history of tobacco abuse with COPD without oxygen dependence, CAD with history of HFrEF, atrial fibrillation, mild vascular dementia presented to the ED at [facility] on 09/29/2024 from the [facility] for evaluation of dyspnea, hypoxia and abnormal labs. At the time the patient complained of shortness of breath with cough minimally productive for the past 4 days associated with runny nose.. Patient required 2 L of oxygen on presentation to the emergency room In the ED found the patient to have hypoxia with leukocytosis and multiple pneumonia on the chest x-ray. In the setting of pneumonia with hypoxia and her age the patient was admitted to the hospitalist service for evaluation and management of pneumonia, hypoxic respiratory failure, COPD exacerbation. During the stay, the patient continued to receive a 5-day course of levofloxacin that was initiated in the ED. COPD was exacerbation was treated with steroids and bronchodilators. WBC trended down, no further oxygen requirement at this time. The patient will be discharged today to the [facility] with follow-up within 7 days with her primary care practitioner. Other chronic conditions were managed as per outpatient medicine regimen. Discussed with Dr. Vanessa Maurer Meds and New Rx's Prescriptions: Continued cholestyramine (with sugar) 4 gram powder See Rx Instructions PO .COMPLEX Rx Instructions: orally Prior to dinner disolved in 4-8oz H2O; losartan 25 mg tablet 25 mg PO DAILY guaifenesin [Tussin] 100 mg/5 mL liquid 200 mg PO Q4H PRN promethazine 25 mg tablet 25 mg PO BID PRN promethazine 50 mg suppository See Rx Instructions [place] .COMPLEX PRN (Reason: nausea and vomiting) Rx Instructions: rectally Q4-6 hours PRN; Incruse Ellipta 62.5 mcg/actuation blister with device 1 inh inhalation DAILY nitroglycerin [Nitrostat] 0.4 MG tablet, sublingual 0.4 mg Buccal Q5 MIN PRN X3 PRN furosemide [Lasix] 20 MG tablet 20 mg PO DIRECTED Patient Comments: every other day vitamin B complex Tablet 1 tab PO DAILY famotidine 20 mg tablet 20 mg PO DAILY aspirin [Adult Aspirin Regimen] 81 mg tablet,delayed release (DR/EC) 81 mg PO DAILY loratadine [Allergy Relief (loratadine)] 10 mg tablet 10 mg PO DAILY fluticasone propionate 50 mcg/actuation spray,suspension 1 spray intranasal BID Rx Instructions: administer into each nostril Trelegy Ellipta 100-62.5-25 mcg blister with device 1 inh inhalation DAILY acetaminophen [Tylenol] 325 mg tablet 325 mg PO ONCE PRN nicotrol inhaler cartridge See Rx Instructions .ROUTE .COMPLEX Rx Instructions: as directed; loperamide [Anti-Diarrheal (loperamide)] 2 mg capsule 2 mg PO .COMPLEX PRN Rx Instructions: 2 mg orally as directed PRN; gabapentin [Neurontin] 300 MG capsule 600 - 900 mg PO DIRECTED Patient Comments: 900 QHS ibuprofen 600 mg tablet 600 mg PO DAILY amlodipine [Norvasc] 10 MG tablet 10 mg PO DAILY albuterol sulfate [Ventolin HFA] 8 GM HFA aerosol inhaler 2 puff Inhalation Q4H PRN B-12 Compliance 1,000 MCG/ML kit 1,000 mcg IM DIRECTED Patient Comments: monthly potassium chloride 10 mEq tablet extended release 10 meq PO DAILY bupropion HCl 300 mg tablet extended release 24 hr 300 mg PO DAILY metoprolol tartrate 50 mg tablet 50 mg PO BID citalopram 20 mg tablet 20 mg PO DAILY Discharge Instructions Activity:: Activity as Tolerated Equipment/Supplies:: Walker Diet:: Heart healthy Discharge Orders Discharge Orders: Discharge Order (Routine); Ordered 10/03/24 Ordered By: Arline Robison DS: Summary Time Spent with Patient providing and/or coordinating discharge services: Greater than 30 minutes Status at Discharge Functional status at discharge: uses cane/walker Overall status at discharge: patient is progressing back to baseline Mental Status: mental status grossly normal Speech and Movement: speech and movement normal Mood: congruent mood Affect: normal affect Quality:SDOH Health Related Social Needs: Health related social needs problems related to housin g/economic circumstances (Z59.89), feeling lonely/isolated (Z60.8), education (Z55.6) Exam Const General: cooperative and no acute distress Nutritional Appearance: well nourished Orientation: alert and oriented x3 HENMT Head: normal to inspection Mouth: moist mucous membranes Eyes General: appearance normal, both eyes and all related structures Conjunctivae: normal conjunctivae Sclera: normal sclerae Neck Neck: trachea midline and supple Chest Chest: normal inspection of the chest Resp Effort & Inspection: normal respiratory effort and able to speak in complete sentences Auscultation: diminished lung sounds Cardio Jugular venous pressure: JVD (minimal) pulsatile; not to the level of the earlobe Rate: regular rate Rhythm: regular rhythm Heart Sounds: S1 normal and S2 normal GI Inspection: normal to inspection (minimal bruising from lovenox DVT prophylaxis injection) Palpation: soft and nontender Auscultation: normal bowel sounds General: No CVA tenderness Skin General skin exam: no rashes or lesions noted Neuro General: patient alert, patient awake, patient oriented x3, tone normal and moves all extremities Extrem General: normal to inspection and full ROM Psych Appearance: grossly normal Mental Status: mental status grossly normal Speech and Movement: speech and movement normal Mood: congruent mood Affect: normal affect DS: Data Vitals/I&O Vitals and I&O: Vital Signs Temperature 37.0 C 10/03/24 07:42 Temperature Source Temporal Artery Scan 10/03/24 07:42 Pulse 70 10/03/24 07:42 Pulse Rhythm Regular 09/30/24 01:14 Pulse 72 09/29/24 23:50 Respiratory Rate 16 10/03/24 07:42 Respiratory Effort Labored 09/30/24 01:14 Respiratory Depth Shallow 09/30/24 01:14 Respiratory Pattern Tachypnea 09/30/24 01:14 Blood Pressure 164/84 H 10/03/24 07:42 Blood Pressure Mean 92 09/29/24 23:45 Blood Pressure Position Supine 09/29/24 20:17 Pulse Oximetry 92 10/03/24 07:42 Oxygen Delivery Method Room Air 10/03/24 07:42 Oxygen Flow Rate 0 02/03/25 07:42 Pain Level 0 10/03/24 03:46 Comment per RN request, let pt sleep 10/02/24 23:44 Intake & Output 10/02/24 10/02/24 10/03/24 11:59 23:59 11:59 Intake Total 240 / 240 Output Total 1150 / 1350 200 / 1350 1500 / 1500 Balance -910 / -1110 -200 / -1110 -1500 / -1500 Weight 87 kg Intake: Oral 240 / 240 Output: Urine 1150 / 1350 200 / 1350 1500 / 1500 Other: Urine Color Yellow Yellow Yellow Urine Appearance Clear Clear Clear Urine Odor Normal Comment voided in toilet Stool Size Moderate Moderate Small Stool Characteristics Formed Soft Soft Data Completed and Pending Labs on day of discharge: Labs from last 24 hours 10/03/24 06:25 WBC 10.93 H RBC 4.29 Hgb 11.6 Hct 36.6 MCV 85 MCH 27.0 MCHC 31.7 L RDW 15.7 H Plt Count 428 H MPV 9.1 Immature Gran % 1.4 Neutrophils % 59.3 Lymphocytes % 29.6 Monocytes % 8.6 Eosinophils % 0.9 Basophils % 0.2 Nucleated RBC % 0.0 Absolute Neutrophils 6.48 Absolute Lymphocytes 3.24 Absolute Monocytes 0.94 H Absolute Eosinophils 0.10 Absolute Basophils 0.02 Sodium 138 Potassium 3.6 Chloride 103 Carbon Dioxide 29.1 Anion Gap 5.9 BUN 11 Creatinine 0.5 L Est GFR (CKD-EPI 2020) 93.59 Glucose 82 Calcium 9.0 Preliminary micro results at discharge 09/29/24 20:29 Blood Culture - Preliminary Blood NO GROWTH 72 HOURS 09/29/24 20:15 Blood Culture - Preliminary Blood NO GROWTH 72 HOURS PFSH All Active Problems (Updated 10/01/24 @ 12:05 by Hiral Norton NP) Discharge planning issues (Acute) DVT prophylaxis (Acute) Hypoxic respiratory failure (Chronic) Community acquired pneumonia (Acute) Respiratory failure (Acute) Pneumonia (Acute) Former cigarette smoker (Acute) Urinary incontinence (Acute) Polyosteoarthritis (Acute) Unspecified macular degeneration (Acute) Encounter for immunization (Acute) Allergic rhinitis due to animal (cat) (dog) hair and dander (Acute) Localized edema (Acute) Cough (Acute) Shortness of breath (Acute) Vascular dementia without behavioral disturbance (Acute) Cognitive communication deficit (Acute) Chronic combined systolic and diastolic heart failure (Acute) Irritable bowel syndrome with diarrhea (Acute) Major depressive disorder with single episode (Acute) Sprain of left upper arm (Acute) Head injury (Acute) Laceration of scalp (Acute) Removal of crystal (Acute) ASHD (arteriosclerotic heart disease) (Chronic) Lone atrial fibrillation (Acute) Atrial fibrillation (Chronic) NSTEMI (non-ST elevated myocardial infarction) (Acute) Coronary artery disease (Chronic) Dyslipidemia (Chronic) Hypertension (Chronic) Tobacco abuse (Chronic) Frequent headaches (Chronic) Colon polyps (Chronic) GERD (gastroesophageal reflux disease) (Chronic) Fibrocystic breast changes (Chronic) Osteoarthritis (Chronic) Depression (Chronic) Memory loss (Chronic) Insomnia (Chronic) PTSD (post-traumatic stress disorder) (Chronic) Seasonal allergies (Chronic) Chronic pain (Chronic) Fibromyalgia (Chronic) Vitamin B 12 deficiency (Chronic) COPD (chronic obstructive pulmonary disease) (Chronic) Medical History Hx of falling Bronchitis Adenocarcinoma of endometrium Other chronic pain fibromyalgia Hyperlipidemia Anxiety Benign hypertension Wrist fracture, right Surgical History Replacement of total knee joint (02/07/08) right Total replacement of hip (09/11/08) left hip, right hip, right ANGELINA revision femoral stem with open reduction and internal fixation of periprosthetic fracture with cerclage cables. Total replacement of hip (09/04/08) left hip, right hip, right ANGELINA revision femoral stem with open reduction and internal fixation of periprosthetic fracture with cerclage cables. Total replacement of hip (03/26/01) left hip, right hip, right ANGELINA revision femoral stem with open reduction and internal fixation of periprosthetic fracture with cerclage cables. Hyseterectomy, Total Laparoscopic w/ BSO Social History (Updated 09/30/24 @ 00:27 by Mike Acevedo) Smoking/Tobacco Use Status: Former Tobacco Use Quit Date: 05/01/16 Smoking risk assessment performed?: Yes Alcohol Intake: never Drug use: Never Substance use type: does not use Housing: assisted living facility Do you feel safe at home: Yes Do you feel safe in your relationship?: Yes Additional Social history: from [place], moved into [facility] in 2021 Time Spent with Patient Time Spent with Patient: 70-84 minutes4 Time was spent: preparing to see the patient(eg.review tests), obtaining and/or reviewing separately otained hiistory, ordering medications,tests, procedures, referring, communicating with other health animal care specialist, indepentently interpreting results, counseling the patient and care coordination
[2024-10-03] MEDS: levoFLOXacin 500 MG, levoFLOXacin 250 MG 750 MG PO (11:37)
[2024-10-03] MEDS: Fluticasone NASAL SPRAY 16 GM BTL NS (11:38)
--- NOTE | 2024-10-03 11:42 | W.PM.HP.N ---
ON LICENSE OF [facility] All Active Problems (Updated 10/01/24 @ 12:05 by Hiral Norton NP) Discharge planning issues (Acute) DVT prophylaxis (Acute) Hypoxic respiratory failure (Chronic) Community acquired pneumonia (Acute) Respiratory failure (Acute) Pneumonia (Acute) Former cigarette smoker (Acute) Urinary incontinence (Acute) Polyosteoarthritis (Acute) Unspecified macular degeneration (Acute) Encounter for immunization (Acute) Allergic rhinitis due to animal (cat) (dog) hair and dander (Acute) Localized edema (Acute) Cough (Acute) Shortness of breath (Acute) Vascular dementia without behavioral disturbance (Acute) Cognitive communication deficit (Acute) Chronic combined systolic and diastolic heart failure (Acute) Irritable bowel syndrome with diarrhea (Acute) Major depressive disorder with single episode (Acute) Sprain of left upper arm (Acute) Head injury (Acute) Laceration of scalp (Acute) Removal of crystal (Acute) ASHD (arteriosclerotic heart disease) (Chronic) Lone atrial fibrillation (Acute) Atrial fibrillation (Chronic) NSTEMI (non-ST elevated myocardial infarction) (Acute) Coronary artery disease (Chronic) Dyslipidemia (Chronic) Hypertension (Chronic) Tobacco abuse (Chronic) Frequent headaches (Chronic) Colon polyps (Chronic) GERD (gastroesophageal reflux disease) (Chronic) Fibrocystic breast changes (Chronic) Osteoarthritis (Chronic) Depression (Chronic) Memory loss (Chronic) Insomnia (Chronic) PTSD (post-traumatic stress disorder) (Chronic) Seasonal allergies (Chronic) Chronic pain (Chronic) Fibromyalgia (Chronic) Vitamin B 12 deficiency (Chronic) COPD (chronic obstructive pulmonary disease) (Chronic) Medical History Hx of falling Bronchitis Adenocarcinoma of endometrium Other chronic pain fibromyalgia Hyperlipidemia Anxiety Benign hypertension Wrist fracture, right Surgical History Replacement of total knee joint (02/07/08) right Total replacement of hip (09/11/08) left hip, right hip, right ANGELINA revision femoral stem with open reduction and internal fixation of periprosthetic fracture with cerclage cables. Total replacement of hip (09/04/08) left hip, right hip, right ANGELINA revision femoral stem with open reduction and internal fixation of periprosthetic fracture with cerclage cables. Total replacement of hip (03/26/01) left hip, right hip, right ANGELINA revision femoral stem with open reduction and internal fixation of periprosthetic fracture with cerclage cables. Hyseterectomy, Total Laparoscopic w/ BSO Social History (Updated 09/30/24 @ 00:27 by Mike Acevedo) Smoking/Tobacco Use Status: Former Tobacco Use Quit Date: 05/01/16 Smoking risk assessment performed?: Yes Alcohol Intake: never Drug use: Never Substance use type: does not use Housing: assisted living facility Do you feel safe at home: Yes Do you feel safe in your relationship?: Yes Additional Social history: from [place], moved into [facility] assisted living in 2021 Meds Allergies and Home Medications Allergies Allergy/AdvReac Type Severity Reaction Status Date / Time Penicillins Allergy Severe Anaphylaxsi Unverified 09/29/24 20:19 s codeine Allergy Unknown Unknown Verified 09/29/24 20:19 Home Medications ?Medication ?Instructions ?Recorded ?Confirmed ?Type gabapentin 300 mg capsule 600 - 900 mg PO DIRECTED 03/09/13 09/29/24 History (Neurontin) furosemide 20 mg tablet (Lasix) 20 mg PO DIRECTED 11/04/16 09/29/24 History nitroglycerin 0.4 mg sublingual 0.4 mg buccal Q5 MIN PRN X3 PRN 11/04/16 09/29/24 History tablet (Nitrostat) albuterol sulfate 90 mcg/actuation 2 puff inhalation Q4H PRN 10/26/17 09/29/24 History aerosol inhaler (Ventolin HFA) amlodipine 10 mg tablet (Norvasc) 10 mg PO DAILY 10/26/17 09/29/24 History cyanocobalamin (vitamin B-12) 1,000 mcg IM DIRECTED 10/26/17 09/29/24 History 1,000 mcg/mL injection kit (B-12 Compliance) ibuprofen 600 mg tablet 600 mg PO DAILY 07/11/21 09/29/24 History acetaminophen 325 mg tablet 325 mg PO ONCE PRN 11/26/22 09/29/24 History (Tylenol) aspirin 81 mg tablet,delayed 81 mg PO DAILY 11/26/22 09/29/24 History release (Adult Aspirin Regimen) famotidine 20 mg tablet 20 mg PO DAILY 11/26/22 09/29/24 History fluticasone fur. 100 mcg-umeclid 1 inh inhalation DAILY 11/26/22 09/29/24 History 62.5 mcg-vilant 25 mcg inhalat.powder (Trelegy Ellipta) fluticasone propionate 50 1 spray intranasal BID 11/26/22 09/29/24 History mcg/actuation nasal spray,suspension loperamide 2 mg capsule 2 mg PO .COMPLEX PRN 11/26/22 09/29/24 History (Anti-Diarrheal (loperamide)) loratadine 10 mg tablet (Allergy 10 mg PO DAILY 11/26/22 09/29/24 History Relief (loratadine)) nicotrol inhaler cartridge See Rx Instructions .Route .COMPLEX 11/26/22 09/29/24 History vitamin B complex 1 tab PO DAILY 11/26/22 09/29/24 History cholestyramine (with sugar) 4 gram See Rx Instructions PO .COMPLEX 12/16/22 09/29/24 History oral powder Irritable Bowel Syndrome guaifenesin 100 mg/5 mL oral 200 mg PO Q4H PRN 12/16/22 09/29/24 History liquid (Tussin) losartan 25 mg tablet 25 mg PO DAILY 12/16/22 09/29/24 History promethazine 25 mg tablet 25 mg PO BID PRN 12/16/22 09/29/24 History promethazine 50 mg rectal See Rx Instructions [place] .COMPLEX 12/16/22 09/29/24 History suppository PRN nausea and vomiting umeclidinium 62.5 mcg/actuation 1 inh inhalation DAILY 12/16/22 09/29/24 History blister powder for inhalation (Incruse Ellipta) bupropion HCl 300 mg 24 hr tablet, 300 mg PO DAILY 09/30/24 09/30/24 History extended release citalopram 20 mg tablet 20 mg PO DAILY 09/30/24 09/30/24 History metoprolol tartrate 50 mg tablet 50 mg PO BID 09/30/24 09/30/24 History potassium chloride 10 mEq 10 meq PO DAILY 09/30/24 09/30/24 History tablet,extended release Results Labs 10/03/24 06:25 10/03/24 06:25 Labs: Laboratory Results - last 24 hr 10/03/24 06:25 WBC 10.93 H RBC 4.29 Hgb 11.6 Hct 36.6 MCV 85 MCH 27.0 MCHC 31.7 L RDW 15.7 H Plt Count 428 H MPV 9.1 Immature Gran % 1.4 Neutrophils % 59.3 Lymphocytes % 29.6 Monocytes % 8.6 Eosinophils % 0.9 Basophils % 0.2 Nucleated RBC % 0.0 Absolute Neutrophils 6.48 Absolute Lymphocytes 3.24 Absolute Monocytes 0.94 H Absolute Eosinophils 0.10 Absolute Basophils 0.02 Sodium 138 Potassium 3.6 Chloride 103 Carbon Dioxide 29.1 Anion Gap 5.9 BUN 11 Creatinine 0.5 L Est GFR (CKD-EPI 2020) 93.59 Glucose 82 Calcium 9.0 Last Vital Signs Temp 37.0 C 10/03/24 07:42 Pulse 70 10/03/24 07:42 Resp 16 10/03/24 07:42 BP 164/84 H 10/03/24 07:42 Pulse Ox 92 10/03/24 07:42
--- NOTE | 2024-10-03 12:14 | W.PC.ACHO ---
Registration Status: Primary Language: Preferred Language: ED Information & Data Chief Complaint RespSymp 09/29/24 23:20 Triage Note brought in by EMS from the 09/29/24 20:10 aamir for WBC of 25. The aamir reports cough, achy, and lethargy since thursday. Pt A&Ox4, sats on RA on EMS arrival 89-90%, 4L NC placed by EMS up to 94%, c/o nausea, 4mg IV zofran enroute. 20g R hand. 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 (09/11/08) Total replacement of hip (09/04/08) Total replacement of hip (03/26/01) Hyseterectomy, Total Laparoscopic w/ BSO Most Recent Vital Signs Temperature 37.0 C 10/03/24 07:42 Temperature Source Temporal Artery Scan 10/03/24 07:42 Pulse 70 10/03/24 07:42 Pulse Rhythm Regular 09/30/24 01:14 Pulse 72 09/29/24 23:50 Respiratory Rate 16 10/03/24 07:42 Respiratory Effort Labored 09/30/24 01:14 Respiratory Depth Shallow 09/30/24 01:14 Respiratory Pattern Tachypnea 09/30/24 01:14 Blood Pressure 164/84 H 10/03/24 07:42 Blood Pressure Mean 92 09/29/24 23:45 Blood Pressure Position Supine 09/29/24 20:17 Pulse Oximetry 92 10/03/24 07:42 Oxygen Delivery Method Room Air 10/03/24 07:42 Oxygen Flow Rate 0 10/03/24 07:42 Pain Level 0 10/03/24 03:46 Comment per RN request, let pt sleep 10/02/24 23:44 Allergies Penicillins Allergy (Severe, Unverified 09/29/24 20:19) Anaphylaxsis codeine Allergy (Unknown, Verified 09/29/24 20:19) Unknown Precautions Isolation PUI 09/29/24 20:17 Active Medications Generic Name Dose Route Start Last Admin Trade Name Freq PRN Reason Stop Dose Admin Acetaminophen 325 mg 09/29/24 22:49 10/02/24 20:03 Acetaminophen 325 Mg Tab PO 325 mg Q4H PRN PRN Administration Amlodipine Besylate 10 mg 09/30/24 08:30 10/03/24 07:36 Amlodipine 10 Mg Tab PO 10 mg DAILY NONI Administration Aspirin 81 mg 09/30/24 08:30 10/03/24 07:35 Aspirin E.C. 81 Mg Tabec PO 81 mg DAILY NONI Administration Budesonide/Formoterol Fumarate 2 puff 09/30/24 08:30 10/03/24 08:47 Budesonide/Formoterol 80/4.5 6.9 Gm 60 Puff Inh IH 2 puffs BID NONI Administration Bupropion HCl 300 mg 10/01/24 08:30 10/03/24 07:35 Bupropion-Xl 150 Mg Tabcr PO 300 mg DAILY NONI Administration Cholestyramine/Aspartame 1 each 09/30/24 16:30 10/02/24 16:55 Cholestyramine/Aspartame Pkt PO 1 each 1630 NONI Administration Citalopram Hydrobromide 20 mg 10/01/24 08:30 10/03/24 07:36 Citalopram 20 Mg Tab PO 20 mg DAILY NONI Administration Enoxaparin Sodium 40 mg 09/30/24 10:00 10/03/24 11:39 Enoxaparin 40 Mg/0.4 Ml Syr SC Not Given Q24H NONI Famotidine 20 mg 09/30/24 07:30 10/03/24 07:36 Famotidine 20 Mg Tab PO 20 mg 0730 NONI Administration Fluticasone Propionate 0 gm 09/30/24 08:30 10/03/24 11:38 Fluticasone Nasal [place] 16 Gm Btl NS 1 spr BID NONI Administration Furosemide 20 mg 09/30/24 08:30 10/03/24 07:35 Furosemide 20 Mg Tab PO 20 mg DAILY NONI Administration Gabapentin 600 mg 09/29/24 23:30 10/02/24 20:04 Gabapentin 300 Mg Cap PO 600 mg HS NONI Administration Guaifenesin 200 mg 09/29/24 22:49 10/02/24 20:04 Guaifenesin 200 Mg/10 Ml Cup PO 200 mg Q4H PRN PRN Administration Levofloxacin 500 mg/ 750 mg 10/03/24 12:00 10/03/24 11:37 Levofloxacin 250 mg PO 750 mg Q48H NONI Administration Loratadine 10 mg 09/30/24 08:30 10/03/24 07:36 Loratidine 10 Mg Tab PO 10 mg DAILY NONI Administration Losartan Potassium 25 mg 09/30/24 08:30 10/03/24 07:35 Losartan 25 Mg Tab PO 25 mg DAILY NONI Administration Metoprolol Tartrate 50 mg 09/30/24 08:30 10/03/24 07:35 Metoprolol 12.5 Mg Tab PO 50 mg BID NONI Administration Potassium Chloride 10 meq 09/30/24 08:30 10/03/24 07:35 Potassium Chloride 10 Meq Capcr PO 10 meq DAILY NONI Administration Prednisone 40 mg 09/30/24 08:30 10/03/24 07:36 Prednisone 20 Mg Tab PO 40 mg DAILY NONI Administration Tiotropium Stopover 2 puff 09/30/24 08:30 10/03/24 08:48 Tiotropium Stopover-Respimat 10 Puff Inh IH 2 inh BID NONI Administration Vitamin B Complex/Vitamin C 1 tab 09/30/24 08:30 10/03/24 07:36 Vitamins B Comp W/C Tab PO 1 tab DAILY NONI Administration IV IV Catheter Type [Left Saline Lock Antecubital] IV Catheter Type [Right Hand] Saline Lock IV Catheter Gauge [Left 20 Antecubital] IV Catheter Gauge [Right Hand] 20 Diagnostics 10/03/24 Range/Units 06:25 WBC 10.93 H (4.4-10.8) 10^3/uL RBC 4.29 (3.93-5.22) 10^6/uL Hgb 11.6 (11.2-15.7) g/dL Hct 36.6 (36.0-46.0) % MCV 85 (80-95) fL MCH 27.0 (27.0-33.0) pg MCHC 31.7 L (32.0-36.0) % RDW 15.7 H (11.7-14.6) % Plt Count 428 H (130-400) 10^3/uL MPV 9.1 (8.0-11.0) fL Immature Gran % 1.4 % Neutrophils % 59.3 % Lymphocytes % 29.6 % Monocytes % 8.6 % Eosinophils % 0.9 % Basophils % 0.2 % Nucleated RBC % 0.0 (0.0-0.3) % Absolute Neutrophils 6.48 (1.2-6.7) 10^3/uL Absolute Lymphocytes 3.24 (1.2-3.4) 10^3/uL Absolute Monocytes 0.94 H (0.1-0.8) 10^3/uL Absolute Eosinophils 0.10 (0.0-0.7) 10^3/uL Absolute Basophils 0.02 (0.0-0.2) 10^3/uL Sodium 138 (136-145) mmol/L Potassium 3.6 (3.5-5.1) mmol/L Chloride 103 (98-107) mmol/L Carbon Dioxide 29.1 (21.0-32.0) mmol/L Anion Gap 5.9 (3-11) mmol/L BUN 11 (7-18) mg/dL Creatinine 0.5 L (0.55-1.02) mg/dL Est GFR (CKD-EPI 2020) 93.59 (mL/min/1.73m2) Glucose 82 (74-106) mg/dL Calcium 9.0 (8.5-10.1) mg/dL 09/29/24 20:29 Blood Culture - Preliminary Blood NO GROWTH 72 HOURS 09/29/24 20:15 Blood Culture - Preliminary Blood NO GROWTH 72 HOURS Intake and Output - 24 Hour Total 09/29/24 19:37 thru 10/03/24 12:00 Intake Total 3090 Output Total 6450 Balance -3360 Weight 87 kg Intake: IV 650 Oral 2440 Output: Urine 6450 Other: Urine Color Yellow Urine Appearance Clear Urine Odor Normal Comment voided in toilet Stool Size Small Stool Characteristics Soft Formed Falls Risk Assessment History of Falls Previous History 09/30/24 01:14 Contributing Factors Medications 09/30/24 01:14 Ambulatory Aids Uses ambulatory device 09/30/24 01:14 Tubes/Lines None 09/30/24 01:14 Gait Evaluation W/no contributing factors 09/30/24 01:14 Cognition No cognitive impairment 09/30/24 01:14 Fall Total Score 43 09/30/24 01:14 Level of Risk Moderate Risk 09/30/24 01:14 Problems (Last Reviewed 09/30/24 @ 00:26 by Mike Acevedo) Discharge planning issues (Acute) DVT prophylaxis (Acute) Hypoxic respiratory failure (Chronic) Community acquired pneumonia (Acute) Former cigarette smoker (Acute) Atrial fibrillation (Chronic) Coronary artery disease (Chronic) COPD (chronic obstructive pulmonary disease) (Chronic) Notes 09/30/24 11:54 Nursing Notes by Page Cabrera Nursing Note: Call placed to [facility] again as PHA needed clarification on citalopram order. Spoke to Chase, who verified the dose of 20mg daily PO of citalopram. Gave update on pt. PRimary nurse notified. Initialized on 09/30/24 11:54 - END OF NOTE 09/30/24 11:16 Nursing Notes by Page Cabrera Nursing Note: Attempted to return call to Daniella at the [facility], no answer. Initialized on 09/30/24 11:16 - END OF NOTE v v v v v v v v v Sending and/or Receiving Nurses: Please use comment section below to note any information pertinent to the patient hand-off not included above. Information / Comments: Report given to [facility] from destiny [facility] at 1210
--- NOTE | 2024-10-03 12:48 | CMDISCH_ITS ---
Date of service: 10/03/24 Time of Service: 12:48 LACE Index Scoring Tool Questions: Length of Stay (in days): 4 - 6 Was the patient admitted via the E.D.?: Yes Comorbidities: Previous M.I., Cerebrovascular Disease and Chronic Pulmonary Disease E.D. Visits: 1 Answers: Total Score: 13 Risk of Readmission: High Risk Care Management Discharge Plan Reason for Hospitalization: pneumonia, COPD exacerbation Discharge Plan: Danette was discharged this afternoon back to the [facility]. She will f/u the facility provider and continue per her plan of care. Danette was transported via [facility] w/c van as coordinated by CM. Patient/Family Education Needs: Review of discharge instructions, limitations, activity and discuss ask me 3. SDOH Health Related Social Needs: Health related social needs problems related to housin g/economic circumstances (Z59.89), feeling lonely/isolated (Z60.8), education (Z55.6)
== END 2024-10-03 12:33 | disposition skilled nursing facility (03) | DRG 193 ==
LOC: ER 23:37 → MS 09-30 01:10
PROVIDERS: Nurse Practitioner Acute Care; Admitting Provider Family Medicine; Emergency Provider Physician Assistant; Visit Provider Family Medicine
DX: J18.9 Pneumonia, unspecified organism (principal); J96.01 Acute respiratory failure with hypoxia; J44.0 Chronic obstructive pulmonary disease with (acute) lower respiratory infection; I50.42 Chronic combined systolic (congestive) and diastolic (congestive) heart failure; I25.10 Atherosclerotic heart disease of native coronary artery without angina pectoris; I48.0 Paroxysmal atrial fibrillation; Z87.891 Personal history of nicotine dependence; M15.9 Polyosteoarthritis, unspecified; R32 Unspecified urinary incontinence; F01.50 Vascular dementia, unspecified severity, without behavioral disturbance, psychotic disturbance, mood disturbance, and anxiety; K58.0 Irritable bowel syndrome with diarrhea; F32.9 Major depressive disorder, single episode, unspecified; I25.2 Old myocardial infarction; E78.5 Hyperlipidemia, unspecified; I11.0 Hypertensive heart disease with heart failure; K21.9 Gastro-esophageal reflux disease without esophagitis; R41.3 Other amnesia; E53.8 Deficiency of other specified B group vitamins; M79.7 Fibromyalgia; F43.10 Post-traumatic stress disorder, unspecified; G47.00 Insomnia, unspecified; F41.9 Anxiety disorder, unspecified; Z96.643 Presence of artificial hip joint, bilateral; Z96.651 Presence of right artificial knee joint
CPT/HCPCS: 00123; 36415; 80048; 80053; 83690; 87040; 87637; 87641; 93005; 94640; 96361; 96365; 96375; 97161; 99291; J1650; 71046; 81003; 83605; 83880; 84484; 85025; 93010; 94664; 94760; 99223; 99233; 99239; J1956; J2919; J3475; J3490; J7512; J7620

== ENCOUNTER 2024-11-14 09:41 | Observation (INO) | payer MEDICARE, MEDICAID, SELFPAY ==
[2024-11-14] VITALS (40 sets, daily range): BP systolic 113–172; BP diastolic 46–84; PULSE 62–87; RESP 2–38; TEMP 36.3–37.3; O2SAT 89–94
--- NOTE | 2024-11-14 09:30 | RT.EKG_ITS ---
APPROVED REPORT Exam: Resting ECG Reason for Exam: SOB Patient Location: E HR:76 bpm ECG Measurements Heart Rate 76 AXIS AL 171 P 30 QRSd 89 QRS 55 QT 378 T 24 QTc 425 Conclusion Sinus rhythm...normal P axis, V-rate 60- 99 No STEMI
--- NOTE | 2024-11-14 09:45 | DI.RAD_ITS ---
Exam(s) XR PORTABLE CHEST AP EXAM: XR PORTABLE CHEST AP CLINICAL HISTORY: Cough fever TECHNIQUE: 2D digital imaging was performed. COMPARISON: CR CHEST 2 VIEWS PA,LAT from 02/21/2018 CR XR thoracic spine complete from 03/01/2019 CR,XR XR CHEST 2V PA LATERAL from 09/29/2024 FINDINGS: Exam is limited by overlying monitoring leads. LUNGS: Clear scarring right mid and lower lung roland. No visible focal infiltrate. No pleural abno rmality seen. HEART: Normal size. AORTA: Tortuous BONES: Old right rib fractures. Old midthoracic compression fracture. Degenerative changes in the t horacic spine. Soft tissues: Unremarkable. IMPRESSION: No acute findings. DATA REPOSITORY: RADIATION DOSE DELIVERED:
--- NOTE | 2024-11-14 09:54 | W.ED.GENAD ---
Discharge Plan Disposition Patient Disposition: Admit to [facility] Discharge Details Clinical Impression: Acute hypoxemic respiratory failure Admit Date/Time: 11/14/24 11:26 Admit Provider: Mike Acevedo Attending Provider: Mike Acevedo Primary Care Provider: Unknown,Unknown ED Provider: Mike Montalvo Discharge Data Discharge Date/Time-TO BE ENTERED AT DEPARTURE: 11/14/24 12:48 HPI General Date/Time Provider Initiated Documentation: 11/14/24 09:51. HPI Narrative: MDM This is a DNI DNR 84-year-old normothermic but tachycardic female arriving to the emergency department via EMS with cough fever abnormal lung sounds concerning for recurrent pneumonia for which patient will receive 2 sets of blood cultures lactate and venous blood gas with hospitalization given her new 2 L oxygen requirement. Equal breath sounds and no trauma so doubt pneumothorax. No pain or proportion to suggest necrotizing soft tissue infection. Given concern for sepsis will order urinalysis however in the absence of dysuria and frequency my suspicion is low for UTI. Soft nontender abdomen some not suspicious for intra-abdominal process I do not feel the patient requires a CT scan of her abdomen. Will assess basic labs treat empirically with ceftriaxone and vancomycin and reach out to the hospitalist team for hospitalization. No lower extremity edema nor unintentional weight gain to suggest acute heart failure as I did not order a proBNP. No headaches to suggest meningitis. Given cough fevers my suspicion is low for ACS in the absence of chest pain and vomiting so I did not order troponins. No obvious wheezes wheezes to suggest reactive airway disease exacerbation however will cover with 10 mg dexamethasone. 11/[address] Acevedo from the hospitalist service who graciously agreed to accept the patient. I also updated the patient's daughter by phone advising her of plan to keep the patient's in the hospital overnight. HPI This is an 84-year-old DNI DNR female arrived to the emergency department via EMS in the setting of cough fever no hypoxia with oxygen saturations in the mid 80s on room air for which patient received nebulization treatments. She has remote prior smoker. She was hospitalized approximately 1 month ago in setting of pneumonia. She has been off of antibiotics since her last hospitalization. She has been coughing for the past several weeks but this got worse yesterday. She requires assessment on walking with a walker. She denies headaches. She is intermittently had some nausea but is not vomiting. She denies abdominal pain. She denies history of coronary artery disease. No recent falls. Exam General: Elderly-appearing in no acute distress speaking in complete sentences. Head: Normocephalic, atraumatic. Eye: Extraocular eye movements intact. No conjunctival injection. No scleral icterus. Ear, nose, mouth, throat: Grossly normal inspection. Normal voice, handling secretions normally. Neck: Trachea midline. Cardiovascular: Well-perfused distal extremities. Regular rate and rhythm Respiratory: Nonlabored respiration. Right-sided rhonchi Gastrointestinal: Nondistended abdomen. Soft nontender. Musculoskeletal: No significant lower extremity pitting edema. Moving all 4 extremities spontaneously. Skin: Normal for age and race, grossly normal temperature and turgor. No acute rash. Neurologic: Alert and appropriate, no apparent acute deficits. Psychiatric: Mood and manner are appropriate. Grooming and personal hygiene are appropriate. Related Data Home Medications ?Medication ?Instructions ?Recorded ?Confirmed gabapentin 300 mg capsule 600 mg PO HS 03/09/13 11/14/24 (Neurontin) furosemide 20 mg tablet (Lasix) 20 mg PO DAILY 11/04/16 11/14/24 nitroglycerin 0.4 mg sublingual 0.4 mg buccal Q5 MIN PRN X3 PRN 11/04/16 11/14/24 tablet (Nitrostat) albuterol sulfate 90 mcg/actuation 2 puff inhalation Q4H PRN 10/26/17 11/14/24 aerosol inhaler (Ventolin HFA) amlodipine 10 mg tablet (Norvasc) 10 mg PO DAILY 10/26/17 11/14/24 cyanocobalamin (vitamin B-12) 1,000 mcg IM DIRECTED 10/26/17 11/14/24 1,000 mcg/mL injection kit (B-12 Compliance) ibuprofen 600 mg tablet 600 mg PO DAILY 07/11/21 11/14/24 aspirin 81 mg tablet,delayed 81 mg PO DAILY 11/26/22 11/14/24 release (Adult Aspirin Regimen) famotidine 20 mg tablet 20 mg PO DAILY 11/26/22 11/14/24 fluticasone fur. 100 mcg-umeclid 1 inh inhalation DAILY 11/26/22 11/14/24 62.5 mcg-vilant 25 mcg inhalat.powder (Trelegy Ellipta) fluticasone propionate 50 1 spray intranasal BID 11/26/22 11/14/24 mcg/actuation nasal spray,suspension loperamide 2 mg capsule 2 mg PO .COMPLEX PRN 11/26/22 11/14/24 (Anti-Diarrheal (loperamide)) loratadine 10 mg tablet (Allergy 10 mg PO DAILY 11/26/22 11/14/24 Relief (loratadine)) nicotrol inhaler cartridge See Rx Instructions .Route .COMPLEX 11/26/22 11/14/24 vitamin B complex 1 tab PO DAILY 11/26/22 11/14/24 cholestyramine (with sugar) 4 gram See Rx Instructions PO .COMPLEX 12/16/22 11/14/24 oral powder Irritable Bowel Syndrome guaifenesin 100 mg/5 mL oral 200 mg PO Q4H PRN 12/16/22 11/14/24 liquid (Tussin) losartan 25 mg tablet 25 mg PO DAILY 12/16/22 11/14/24 promethazine 25 mg tablet 25 mg PO BID PRN 12/16/22 11/14/24 promethazine 50 mg rectal See Rx Instructions LA .COMPLEX 12/16/22 11/14/24 suppository PRN nausea and vomiting umeclidinium 62.5 mcg/actuation 1 inh inhalation DAILY 12/16/22 11/14/24 blister powder for inhalation (Incruse Ellipta) bupropion HCl 300 mg 24 hr tablet, 300 mg PO DAILY 09/30/24 11/14/24 extended release citalopram 20 mg tablet 20 mg PO DAILY 09/30/24 11/14/24 metoprolol tartrate 50 mg tablet 50 mg PO BID 09/30/24 11/14/24 potassium chloride 10 mEq 10 meq PO DAILY 09/30/24 11/14/24 tablet,extended release acetaminophen 500 mg tablet 1,000 mg PO TID 11/14/24 11/14/24 meclizine 12.5 mg tablet 12.5 mg PO TID 11/14/24 11/14/24 Allergies Allergy/AdvReac Type Severity Reaction Status Date / Time Penicillins Allergy Severe Anaphylaxsi Verified 11/14/24 11:14 s codeine Allergy Unknown Unknown Verified 11/14/24 11:14 General Stated Complaint: RespSymp MARY: 3 Course Vital Signs Vital signs: Vital Signs Pulse 78 11/14/24 09:46 Respiratory Rate 20 11/14/24 09:46 Blood Pressure 162/66 H 11/14/24 09:46 Pulse Oximetry 93 11/14/24 09:46 Pulse 78 11/14/24 09:46 Respiratory Rate 20 11/14/24 09:46 Blood Pressure 162/66 H 11/14/24 09:46 Pulse Oximetry 93 11/14/24 09:46 Oxygen Delivery Method Room Air 11/14/24 09:46 Oxygen Flow Rate 0 11/14/24 09:46 Pain Level 0 11/14/24 09:46 Medical Decision Making Quality:SDOH Health Related Social Needs: Health related social needs feeling lonely/isolated (Z60.8) PFSH All Active Problems (Updated 11/14/24 @ 15:28 by Arline Robison APRN) Discharge planning issues (Acute) On deep vein thrombosis (DVT) prophylaxis (Acute) COPD exacerbation (Acute) Acute hypoxemic respiratory failure (Acute) Community acquired pneumonia (Acute) Respiratory failure (Acute) Former cigarette smoker (Acute) Urinary incontinence (Acute) Polyosteoarthritis (Acute) Unspecified macular degeneration (Acute) Encounter for immunization (Acute) Allergic rhinitis due to animal (cat) (dog) hair and dander (Acute) Localized edema (Acute) Cough (Acute) Shortness of breath (Acute) Vascular dementia without behavioral disturbance (Acute) Cognitive communication deficit (Acute) Chronic combined systolic and diastolic heart failure (Acute) Irritable bowel syndrome with diarrhea (Acute) Major depressive disorder with single episode (Acute) Sprain of left upper arm (Acute) Head injury (Acute) Laceration of scalp (Acute) Removal of crystal (Acute) ASHD (arteriosclerotic heart disease) (Chronic) Lone atrial fibrillation (Acute) Atrial fibrillation (Chronic) NSTEMI (non-ST elevated myocardial infarction) (Acute) Coronary artery disease (Chronic) Dyslipidemia (Chronic) Hypertension (Chronic) Tobacco abuse (Chronic) Frequent headaches (Chronic) Colon polyps (Chronic) GERD (gastroesophageal reflux disease) (Chronic) Fibrocystic breast changes (Chronic) Osteoarthritis (Chronic) Depression (Chronic) Memory loss (Chronic) Insomnia (Chronic) PTSD (post-traumatic stress disorder) (Chronic) Seasonal allergies (Chronic) Chronic pain (Chronic) Fibromyalgia (Chronic) Vitamin B 12 deficiency (Chronic) COPD (chronic obstructive pulmonary disease) (Chronic) Medical History Hx of falling Bronchitis Adenocarcinoma of endometrium Other chronic pain fibromyalgia Hyperlipidemia Anxiety Benign hypertension Wrist fracture, right Surgical History Replacement of total knee joint (02/07/08) right Total replacement of hip (09/11/08) left hip, right hip, right ANGELINA revision femoral stem with open reduction and internal fixation of periprosthetic fracture with cerclage cables. Total replacement of hip (09/04/08) left hip, right hip, right ANGELINA revision femoral stem with open reduction and internal fixation of periprosthetic fracture with cerclage cables. Total replacement of hip (03/26/01) left hip, right hip, right ANGELINA revision femoral stem with open reduction and internal fixation of periprosthetic fracture with cerclage cables. Hyseterectomy, Total Laparoscopic w/ BSO Social History (Updated 09/30/24 @ 00:27 by Mike Acevedo) Smoking/Tobacco Use Status: Former Tobacco Use Quit Date: 05/01/16 Smoking risk assessment performed?: Yes Alcohol Intake: never Drug use: Never Substance use type: does not use Housing: half-way Do you feel safe at home: Yes Do you feel safe in your relationship?: Yes Additional Social history: from [place], moved into [facility] in 2021
[2024-11-14 10:03] LABS: BE (Venous) 3 mmol/L (-2-3); HCO3 (Venous) 28 mmol/L (23-28); Lactate 1.6 mmol/L (<or=2.0); O2 Sat (Venous) 58 %; TCO2 (Venous) 26 mmol/L (24-29); pCO2 (Venous) 48 mmHg (41-51); pH (Venous) 7.38 (7.31-7.41); pO2 (Venous) 31 mmHg
[2024-11-14 10:08] LABS: Abs Immature Grans 0.06 10^3/uL (0.0-0.06); Absolute Basophil Count 0.06 10^3/uL (0.0-0.2); Absolute Eosinophil Count 0.04 10^3/uL (0.0-0.7); Absolute Lymphocyte Count 1.78 10^3/uL (1.2-3.4); Absolute Monocyte Count 0.88 10^3/uL (0.1-0.8); Absolute Neutrophil Count 11.77 10^3/uL (1.2-6.7); Basophils % 0.4 %; Eosinophils % 0.3 %; HCT 39.1 % (36.0-46.0); HGB 12.3 g/dL (11.2-15.7); Immature Grans % 0.4 %; Lymphocytes % 12.2 %; MCH 27.4 pg (27.0-33.0); MCHC 31.5 % (32.0-36.0); MCV 87 fL (80-95); MPV 9.6 fL (8.0-11.0); Neutrophils % 80.7 %; Platelet Count 291 10^3/uL (130-400); RBC 4.49 10^6/uL (3.93-5.22); RDW 15.9 % (11.7-14.6); RDW-SD 50.9 fL; WBC 14.59 10^3/uL (4.4-10.8)
[2024-11-14 10:16] LABS: Anion Gap 5.5 mmol/L (3-11); BUN 7 mg/dL (7-18); CO2 29.5 mmol/L (21.0-32.0); CREATININE 0.6 mg/dL (0.55-1.02); Calcium 8.8 mg/dL (8.5-10.1); Chloride 102 mmol/L (98-107); Estimated GFR 89.56 (mL/min/1.73m2); Glucose 135 mg/dL (74-106); Potassium 3.5 mmol/L (3.5-5.1); Sodium 137 mmol/L (136-145)
[2024-11-14] MEDS: Acetaminophen 500 MG TAB 1000 MG PO ×3 (10:23→20:38)
[2024-11-14] MEDS: CEFEPIME 2 GM in Normal Saline 100 ML IVPB (10:23)
[2024-11-14] MEDS: Dexamethasone 4 MG TAB 10 MG PO (10:24)
[2024-11-14] MEDS: Ondansetron O.D.T. 4 MG TABEF PO (10:24)
[2024-11-14 10:47] LABS: COVID-19 PCR Negative (Negative); Influenza A PCR Negative (Negative); Influenza B PCR Negative (Negative); RSV PCR Negative (Negative)
[2024-11-14 10:57] LABS: Source Nasopharynx
[2024-11-14] MEDS: VANCOMYCIN 2,000 MG in Normal Saline 500 ML 250 MG IVPB (11:10)
--- NOTE | 2024-11-14 11:17 | HPE_ITS ---
Date of service: 11/14/24 Time of Service: 11:17 Assessment and Plan Assessment and plan (1) Acute hypoxemic respiratory failure: Status: Acute Assessment and plan: New oxygen requirement in the setting of most likely COPD exacerbation. ACS unlikely as per ED workup and patient symptomatology. Will continue oral steroids intitated in the ED and add doxycycline, mucinex,scheduled and PRN nebs, acapella, IS Wean O2 for sat 88-92% -BNP pending to r/o CHF exacerbation but most unlikely with Hx of HFrEF w/o edema to LE, orhtopnea,respiratory crackles -Sepsis w/o a source considered d/t tachypnea and leukocytosis but likely exacerbation of COPD as a cause VS early sepsis. -Will hold off vancomycin as MRSA PCR was negative today and f/u blood Cx results - Had a dose of Cefepime in the ED (2) COPD exacerbation: Status: Acute Assessment and plan: Reporting increased cough frequency and change in sputum color And as above (3) Cough: Status: Acute Assessment and plan: Tessalon Perles 3 times daily (4) Former cigarette smoker: Status: Acute Assessment and plan: NRT as needed (5) On deep vein thrombosis (DVT) prophylaxis: Status: Acute Assessment and plan: ON LMWH (6) Discharge planning issues: Status: Acute Assessment and plan: D/c to the [facility] when medically cleared. Discussed with Dr. Acevedo History of Present Illness History of Present Illness Chief Complaint: Cough fever Narrative: This 84 years old patient living at the [facility] , with past medical history of COPD, nicotine dependence, CAD, HFrEF, atrial fibrillation, mild vascular dementia recently treated for pneumonia in October 2024 presented today to the ED for evaluation of cough, fever, intermittent nausea, hypoxia resolving on 2 L of oxygen. Workup in the ED for leukocytosis at 14, chemistry was unremarkable, chest x-ray only showed scarring mid and lower right lung field without obvious focal infiltrate. The patient was admitted by the hospitalist team to the medical surgical floor for hypoxic respiratory failure. BNP added to labs. Patient hospitalized DNR/DNI. The patient denied objective fever but felt feverish and nauseous, denied dizziness, headache, chest pain, other GI symptoms, or dysuria. Reported change in sputum color and increased coughing frequency and having difficulty expectorating patient. Review of Systems All systems reviewed & are unremarkable except as noted in HPI and below PFSH All Active Problems (Updated 11/14/24 @ 15:28 by Arline Robison APRN) Discharge planning issues (Acute) On deep vein thrombosis (DVT) prophylaxis (Acute) COPD exacerbation (Acute) Acute hypoxemic respiratory failure (Acute) Community acquired pneumonia (Acute) Respiratory failure (Acute) Former cigarette smoker (Acute) Urinary incontinence (Acute) Polyosteoarthritis (Acute) Unspecified macular degeneration (Acute) Encounter for immunization (Acute) Allergic rhinitis due to animal (cat) (dog) hair and dander (Acute) Localized edema (Acute) Cough (Acute) Shortness of breath (Acute) Vascular dementia without behavioral disturbance (Acute) Cognitive communication deficit (Acute) Chronic combined systolic and diastolic heart failure (Acute) Irritable bowel syndrome with diarrhea (Acute) Major depressive disorder with single episode (Acute) Sprain of left upper arm (Acute) Head injury (Acute) Laceration of scalp (Acute) Removal of crystal (Acute) ASHD (arteriosclerotic heart disease) (Chronic) Lone atrial fibrillation (Acute) Atrial fibrillation (Chronic) NSTEMI (non-ST elevated myocardial infarction) (Acute) Coronary artery disease (Chronic) Dyslipidemia (Chronic) Hypertension (Chronic) Tobacco abuse (Chronic) Frequent headaches (Chronic) Colon polyps (Chronic) GERD (gastroesophageal reflux disease) (Chronic) Fibrocystic breast changes (Chronic) Osteoarthritis (Chronic) Depression (Chronic) Memory loss (Chronic) Insomnia (Chronic) PTSD (post-traumatic stress disorder) (Chronic) Seasonal allergies (Chronic) Chronic pain (Chronic) Fibromyalgia (Chronic) Vitamin B 12 deficiency (Chronic) COPD (chronic obstructive pulmonary disease) (Chronic) Medical History Hx of falling Bronchitis Adenocarcinoma of endometrium Other chronic pain fibromyalgia Hyperlipidemia Anxiety Benign hypertension Wrist fracture, right Surgical History Replacement of total knee joint (02/07/08) right Total replacement of hip (09/11/08) left hip, right hip, right ANGELINA revision femoral stem with open reduction and internal fixation of periprosthetic fracture with cerclage cables. Total replacement of hip (09/04/08) left hip, right hip, right ANGELINA revision femoral stem with open reduction and internal fixation of periprosthetic fracture with cerclage cables. Total replacement of hip (03/26/01) left hip, right hip, right ANGELINA revision femoral stem with open reduction and internal fixation of periprosthetic fracture with cerclage cables. Hyseterectomy, Total Laparoscopic w/ BSO Social History (Updated 09/30/24 @ 00:27 by Mike Acevedo) Smoking/Tobacco Use Status: Former Tobacco Use Quit Date: 05/01/16 Smoking risk assessment performed?: Yes Alcohol Intake: never Drug use: Never Substance use type: does not use Housing: long-term Do you feel safe at home: Yes Do you feel safe in your relationship?: Yes Additional Social history: from [place], moved into [facility] assisted living in 2021 Meds Allergies and Home Medications Allergies Allergy/AdvReac Type Severity Reaction Status Date / Time Penicillins Allergy Severe Anaphylaxsi Verified 11/14/24 11:14 s codeine Allergy Unknown Unknown Verified 11/14/24 11:14 Home Medications ?Medication ?Instructions ?Recorded ?Confirmed ?Type gabapentin 300 mg capsule 600 mg PO HS 03/09/13 11/14/24 History (Neurontin) furosemide 20 mg tablet (Lasix) 20 mg PO DAILY 11/04/16 11/14/24 History nitroglycerin 0.4 mg sublingual 0.4 mg buccal Q5 MIN PRN X3 PRN 11/04/16 11/14/24 History tablet (Nitrostat) albuterol sulfate 90 mcg/actuation 2 puff inhalation Q4H PRN 10/26/17 11/14/24 History aerosol inhaler (Ventolin HFA) amlodipine 10 mg tablet (Norvasc) 10 mg PO DAILY 10/26/17 11/14/24 History cyanocobalamin (vitamin B-12) 1,000 mcg IM DIRECTED 10/26/17 11/14/24 History 1,000 mcg/mL injection kit (B-12 Compliance) ibuprofen 600 mg tablet 600 mg PO DAILY 07/11/21 11/14/24 History aspirin 81 mg tablet,delayed 81 mg PO DAILY 11/26/22 11/14/24 History release (Adult Aspirin Regimen) famotidine 20 mg tablet 20 mg PO DAILY 11/26/22 11/14/24 History fluticasone fur. 100 mcg-umeclid 1 inh inhalation DAILY 11/26/22 11/14/24 History 62.5 mcg-vilant 25 mcg inhalat.powder (Trelegy Ellipta) fluticasone propionate 50 1 spray intranasal BID 11/26/22 11/14/24 History mcg/actuation nasal spray,suspension loperamide 2 mg capsule 2 mg PO .COMPLEX PRN 11/26/22 11/14/24 History (Anti-Diarrheal (loperamide)) loratadine 10 mg tablet (Allergy 10 mg PO DAILY 11/26/22 11/14/24 History Relief (loratadine)) nicotrol inhaler cartridge See Rx Instructions .Route .COMPLEX 11/26/22 11/14/24 History vitamin B complex 1 tab PO DAILY 11/26/22 11/14/24 History cholestyramine (with sugar) 4 gram See Rx Instructions PO .COMPLEX 12/16/22 11/14/24 History oral powder Irritable Bowel Syndrome guaifenesin 100 mg/5 mL oral 200 mg PO Q4H PRN 12/16/22 11/14/24 History liquid (Tussin) losartan 25 mg tablet 25 mg PO DAILY 12/16/22 11/14/24 History promethazine 25 mg tablet 25 mg PO BID PRN 12/16/22 11/14/24 History promethazine 50 mg rectal See Rx Instructions [place] .COMPLEX 12/16/22 11/14/24 History suppository PRN nausea and vomiting umeclidinium 62.5 mcg/actuation 1 inh inhalation DAILY 12/16/22 11/14/24 History blister powder for inhalation (Incruse Ellipta) bupropion HCl 300 mg 24 hr tablet, 300 mg PO DAILY 09/30/24 11/14/24 History extended release citalopram 20 mg tablet 20 mg PO DAILY 09/30/24 11/14/24 History metoprolol tartrate 50 mg tablet 50 mg PO BID 09/30/24 11/14/24 History potassium chloride 10 mEq 10 meq PO DAILY 09/30/24 11/14/24 History tablet,extended release acetaminophen 500 mg tablet 1,000 mg PO TID 11/14/24 11/14/24 History meclizine 12.5 mg tablet 12.5 mg PO TID 11/14/24 11/14/24 History Exam Narrative Exam Narrative: Constitutional The patient in chair without acute distress, O2 via NC in place HENMT: Facial structures with normal appearance Eyes: Well aligned Neck: Normal ROM, no meningeal signs Neuro:alert and oriented to self, time . No neurological focal deficit Chest:Chest is symmetrical and normal appearance Resp: shallow breathing pattern, speaks in full sentences, decreased breath sound to the left lung field Cardio: regular rhythm, S1, S2, no murmur, bilateral radial and dorsalis pedis pulses are positive, palpable GI: Abdomen is not distended, soft and non tender, bowel sounds are present : Negative Costovertebral angle tenderness Back/spine/Pelvis: No back tenderness Integumentary: No skin lesions or [place] exposed skin Extremities: strength 5/5 to bilateral lower and upper extremities Psych: RASS 0, congruent mood and normal affect. Results Labs 11/14/24 10:00 11/14/24 10:00 Labs: Laboratory Results - last 24 hr 11/14/24 10:00 WBC 14.59 H RBC 4.49 Hgb 12.3 Hct 39.1 MCV 87 MCH 27.4 MCHC 31.5 L RDW 15.9 H Plt Count 291 MPV 9.6 Immature Gran % 0.4 Neutrophils % 80.7 Lymphocytes % 12.2 Monocytes % 6.0 Eosinophils % 0.3 Basophils % 0.4 Nucleated RBC % 0.0 Absolute Neutrophils 11.77 H Absolute Lymphocytes 1.78 Absolute Monocytes 0.88 H Absolute Eosinophils 0.04 Absolute Basophils 0.06 VBG pH 7.38 VBG pCO2 48 VBG pO2 31 VBG HCO3 28 VBG Total CO2 26 VBG O2 Saturation 58 VBG Base Excess 3 VBG Lactate 1.6 Sodium 137 Potassium 3.5 Chloride 102 Carbon Dioxide 29.5 Anion Gap 5.5 BUN 7 Creatinine 0.6 Est GFR (CKD-EPI 2020) 89.56 Glucose 135 H Calcium 8.8 COVID-19 Source Nasopharynx SARS-CoV-2 (PCR) Negative Influenza Type A (PCR) Negative Influenza Type B (PCR) Negative RSV (PCR) Negative Last Vital Signs Pulse 78 11/14/24 09:46 Resp 20 11/14/24 09:46 BP 162/66 H 11/14/24 09:46 Pulse Ox 93 11/14/24 09:46 Time Spent Time spent with Patient: >75 minutes Time was spent: preparing to see the patient(eg.review tests), obtaining and/or reviewing separately otained hiistory, ordering medications,tests, procedures, referring, communicating with other health palliative care physician, indepentently interpreting results, counseling the patient and care coordination
[2024-11-14] MEDS: Doxycycline Hyclate 100 MG CAP PO (11:33)
[2024-11-14] MEDS: Normal Saline 500 ML 1000 ML IV (11:34)
[2024-11-14 12:10] LABS: MRSA PCR Negative (Negative)
--- NOTE | 2024-11-14 12:42 | W.PC.ACHO ---
Registration Status: Primary Language: Preferred Language: ED Information & Data Chief Complaint RespSymp 11/14/24 10:14 Chief Complaint RespSymp 11/14/24 09:55 Triage Note presents with respiratory s/ 11/14/24 09:46 s for greater than 2 weeks. recent admission last month for pneumonia. presents with low oxygen sats and congested cough with fever today Medical / Surgical History (Last Reviewed 09/30/24 @ 00:26 by Mike Acevedo) Pneumonia Hx of falling Bronchitis Adenocarcinoma of endometrium Other chronic pain Hyperlipidemia Anxiety Benign hypertension Wrist fracture, right (Last Reviewed 09/30/24 @ 00:26 by Mike Acevedo) Replacement of total knee joint (02/07/08) Total replacement of hip (09/11/08) Total replacement of hip (09/04/08) Total replacement of hip (03/26/01) Hyseterectomy, Total Laparoscopic w/ BSO Most Recent Vital Signs Temperature 36.6 C 11/14/24 11:19 Pulse 71 11/14/24 12:32 Pulse 73 11/14/24 12:32 Respiratory Rate 26 H 11/14/24 12:32 Respiratory Effort Short of Breath, Labored 11/14/24 10:15 Respiratory Depth Normal 11/14/24 10:15 Blood Pressure 127/59 L 11/14/24 12:32 Blood Pressure Mean 80 11/14/24 12:32 Pulse Oximetry 89 L 11/14/24 12:30 Oxygen Delivery Method Room Air 11/14/24 09:46 Oxygen Flow Rate 0 11/14/24 09:46 Pain Level 0 11/14/24 12:40 Allergies Penicillins Allergy (Severe, Verified 11/14/24 11:14) Anaphylaxsis codeine Allergy (Unknown, Verified 11/14/24 11:14) Unknown Precautions Isolation PUI 11/14/24 10:14 Active Medications Generic Name Dose Route Start Last Admin Trade Name Freq PRN Reason Stop Dose Admin Albuterol/Ipratropium 3 ml 11/14/24 12:00 11/14/24 12:23 Albuterol/Ipratropium 3 Ml Upd Vial UPD Not Given Q6H NONI IV IV Catheter Type [Right Peripheral IV Antecubital] IV Catheter Gauge [Right 18 Antecubital] Diet Orders Category Date Time Status Diabetes Consistent CHO/Heart Healthy [DIET] Nutrition 11/14/24 Lunch Active Regular/Normal [DIET] Nutrition 11/14/24 Dinner Active Diagnostics 11/14/24 11/14/24 11/14/24 Range/Units 10:49 10:00 09:52 WBC 14.59 H (4.4-10.8) 10^3/uL RBC 4.49 (3.93-5.22) 10^6/uL Hgb 12.3 (11.2-15.7) g/dL Hct 39.1 (36.0-46.0) % MCV 87 (80-95) fL MCH 27.4 (27.0-33.0) pg MCHC 31.5 L (32.0-36.0) % RDW 15.9 H (11.7-14.6) % Plt Count 291 (130-400) 10^3/uL MPV 9.6 (8.0-11.0) fL Immature Gran % 0.4 % Neutrophils % 80.7 % Lymphocytes % 12.2 % Monocytes % 6.0 % Eosinophils % 0.3 % Basophils % 0.4 % Nucleated RBC % 0.0 (0.0-0.3) % Absolute Neutrophils 11.77 H (1.2-6.7) 10^3/uL Absolute Lymphocytes 1.78 (1.2-3.4) 10^3/uL Absolute Monocytes 0.88 H (0.1-0.8) 10^3/uL Absolute Eosinophils 0.04 (0.0-0.7) 10^3/uL Absolute Basophils 0.06 (0.0-0.2) 10^3/uL VBG pH 7.38 (7.31-7.41) VBG pCO2 48 (41-51) mmHg VBG pO2 31 mmHg VBG HCO3 28 (23-28) mmol/L VBG Total CO2 26 (24-29) mmol/L VBG O2 Saturation 58 % VBG Base Excess 3 (-2-3) mmol/L VBG Lactate 1.6 (<or=2.0) mmol/L Sodium 137 (136-145) mmol/L Potassium 3.5 (3.5-5.1) mmol/L Chloride 102 (98-107) mmol/L Carbon Dioxide 29.5 (21.0-32.0) mmol/L Anion Gap 5.5 (3-11) mmol/L BUN 7 (7-18) mg/dL Creatinine 0.6 (0.55-1.02) mg/dL Est GFR (CKD-EPI 2020) 89.56 (mL/min/1.73m2) Glucose 135 H (74-106) mg/dL Calcium 8.8 (8.5-10.1) mg/dL Urine Color Pending Urine Clarity Pending Urine pH Pending Ur Specific Clear Pending Urine Protein Pending Urine Ketones Pending Urine Blood Pending Urine Nitrite Pending Urine Bilirubin Pending Urine Urobilinogen Pending Ur Leukocyte Esterase Pending Urine Glucose Pending COVID-19 Source Nasopharynx SARS-CoV-2 (PCR) Negative (Negative) Influenza Type A (PCR) Negative (Negative) Influenza Type B (PCR) Negative (Negative) RSV (PCR) Negative (Negative) MRSA (TEM-PCR) Negative (Negative) 11/14/24 10:00 Blood Culture - Pending Blood 11/14/24 09:50 Blood Culture - Pending Blood Intake and Output - 24 Hour Total 11/14/24 09:36 thru 11/14/24 11:15 Intake Total 100 Balance 100 Weight 90.3 kg Intake: IV 100 Falls Risk Assessment History of Falls Previous History 11/14/24 10:15 Contributing Factors No Factors 11/14/24 10:15 Ambulatory Aids Independent 11/14/24 10:15 Tubes/Lines None 11/14/24 10:15 Gait Evaluation No gait disturbance 11/14/24 10:15 Cognition No cognitive impairment 11/14/24 10:15 Fall Total Score 15 11/14/24 10:15 Level of Risk Standard/Low Risk 11/14/24 10:15 Problems (Last Reviewed 09/30/24 @ 00:26 by Mike Acevedo) Acute hypoxemic respiratory failure (Acute) v v v v v v v v v Sending and/or Receiving Nurses: Please use comment section below to note any information pertinent to the patient hand-off not included above. Information / Comments: Paged at [phone], report called for at [phone]. Admit for hypoxic resp. failure, on 3L oxygen, 18 G R AC. Report received from: Brittany Kim RN ED.
[2024-11-14 12:54] LABS: Bilirubin Negative (Negative); Blood Negative (Negative); Clarity Clear (Clear); Glucose Negative (Negative); Ketones Negative (Negative); Leukocyte Esterase Negative (Negative); Nitrite Negative (Negative); Specific Gravity <= 1.005 (1.005-1.025); Urobilinogen 0.2 mg/dL (Up to 0.2); pH 5.5 (5-8)
[2024-11-14] MEDS: Enoxaparin 40 MG/0.4 ML SYR SC (13:38)
[2024-11-14] MEDS: Meclizine 12.5 MG TAB PO ×2 (13:38→20:38)
[2024-11-14 15:12] LABS: NT-proBNP 216 pg/mL (<300)
[2024-11-14] MEDS: Albuterol/Ipratropium 3 ML UPD VIAL UPD (18:19)
[2024-11-14] MEDS: Budesonide/Formoterol 80/4.5 6.9 GM 60 PUFF INH IH (20:33)
[2024-11-14] MEDS: Fluticasone NASAL SPRAY 16 GM BTL NS (20:37)
[2024-11-14] MEDS: Benzonatate 100 MG CAP PO (20:38)
[2024-11-14] MEDS: Gabapentin 300 MG CAP 600 MG PO (20:38)
[2024-11-14] MEDS: guaiFENesin 600 MG TABCR PO (20:38)
[2024-11-14] MEDS: Normal Saline Flush 10 ML SYR IVP (20:39)
[2024-11-14] MEDS: Metoprolol 50 MG TAB PO (20:39)
[2024-11-14] MEDS: DOXYCYCLINE 100 MG in Normal Saline 100 ML IVPB (21:42)
[2024-11-15] VITALS (8 sets, daily range): BP systolic 117–138; BP diastolic 65–86; PULSE 66–79; RESP 16–18; TEMP 36.3–37; O2SAT 89–93
[2024-11-15 06:24] LABS: Abs Immature Grans 0.09 10^3/uL (0.0-0.06); Absolute Basophil Count 0.01 10^3/uL (0.0-0.2); Absolute Eosinophil Count 0.04 10^3/uL (0.0-0.7); Absolute Lymphocyte Count 1.68 10^3/uL (1.2-3.4); Absolute Monocyte Count 0.48 10^3/uL (0.1-0.8); Absolute Neutrophil Count 10.27 10^3/uL (1.2-6.7); Basophils % 0.1 %; Eosinophils % 0.3 %; HCT 36.1 % (36.0-46.0); HGB 11.4 g/dL (11.2-15.7); Immature Grans % 0.7 %; Lymphocytes % 13.4 %; MCH 27.3 pg (27.0-33.0); MCHC 31.6 % (32.0-36.0); MCV 86 fL (80-95); MPV 9.5 fL (8.0-11.0); Monocytes % 3.8 %; Neutrophils % 81.7 %; Platelet Count 273 10^3/uL (130-400); RBC 4.18 10^6/uL (3.93-5.22); RDW 15.9 % (11.7-14.6); RDW-SD 50.2 fL; WBC 12.57 10^3/uL (4.4-10.8)
[2024-11-15 06:35] LABS: Anion Gap 7.9 mmol/L (3-11); BUN 11 mg/dL (7-18); CO2 29.1 mmol/L (21.0-32.0); CREATININE 0.5 mg/dL (0.55-1.02); Calcium 9.1 mg/dL (8.5-10.1); Chloride 104 mmol/L (98-107); Estimated GFR 93.59 (mL/min/1.73m2); Glucose 139 mg/dL (74-106); Sodium 141 mmol/L (136-145)
[2024-11-15] MEDS: Budesonide/Formoterol 80/4.5 6.9 GM 60 PUFF INH IH ×2 (08:19→19:34)
[2024-11-15] MEDS: Tiotropium Bromide-Respimat 10 PUFF INH IH (08:19)
[2024-11-15] MEDS: Famotidine 20 MG TAB PO (08:46)
[2024-11-15] MEDS: amLODIPine 10 MG TAB PO (08:46)
[2024-11-15] MEDS: Metoprolol 50 MG TAB PO ×2 (08:46→19:36)
[2024-11-15] MEDS: Acetaminophen 500 MG TAB 1000 MG PO ×3 (08:46→19:36)
[2024-11-15] MEDS: Enoxaparin 40 MG/0.4 ML SYR SC (08:46)
[2024-11-15] MEDS: Normal Saline Flush 10 ML SYR IVP ×4 (08:47→19:38)
[2024-11-15] MEDS: guaiFENesin 600 MG TABCR PO ×2 (08:47→19:37)
[2024-11-15] MEDS: Benzonatate 100 MG CAP PO ×3 (08:47→19:37)
[2024-11-15] MEDS: Citalopram 20 MG TAB PO (08:47)
[2024-11-15] MEDS: Meclizine 12.5 MG TAB PO ×3 (08:47→19:37)
[2024-11-15] MEDS: Furosemide 20 MG TAB PO (08:47)
[2024-11-15] MEDS: Ibuprofen 600 MG TAB PO (08:47)
[2024-11-15] MEDS: buPROPion-XL 150 MG TABCR 300 MG PO (08:47)
[2024-11-15] MEDS: predniSONE 20 MG TAB 40 MG PO (09:00)
[2024-11-15] MEDS: Potassium Chloride 10 MEQ TABCR PO (09:01)
[2024-11-15] MEDS: Fluticasone NASAL SPRAY 16 GM BTL NS ×2 (09:01→19:33)
--- NOTE | 2024-11-15 09:35 | INITIAL_ITS ---
Date of service: 11/15/24 Time of Service: 09:35 Care Management Initial Assmt Initial Assessment Reason for Hospitalization: Respiratory failure Functional Status/Living Situation Patient Presentation: Danette was sitting up in a chair visiting with her daughter Mignon when CM met with her. She appeared to be in good spirits and readily engaged with CM. Danette was admitted with hypoxic respiratory failure, likely secondary to her COPD. She initially required supplemental oxygen but by this morning was saturating in the low 90s on room air. Danette lives at [facility]. She has been there for about 3 years. At the present time she has a roomate that she gets along well with so is happy. 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 She spoke about her years working for what used to be called [employer] which is now [employer]. She has 4 children, 2 girls and 2 boys, and describes her family as close and supportive. Danette ambulates with a walker. She is assisted with showering and dressing as needed by the staff at the [facility] but is able to feed herself, perform mouth care etc. Town of Residence: [place] Resides with: Other (SNF) Significant Other/Family: Local (children live locally or in [place]) Natural Supports: children Mignon, Jayla, Mundo and Ken Employment Status: Retired Instrumental Activities of Daily Living (ADLs): Requires support Medications Medication Management: No Issues/Barriers identified Advance Directives Advance Directives: Do you have an Advance Directive: N 01/20/13 13:42 AD On File at [facility]: N 12/16/12 12:26 Date Asked 11/14/24 11/14/24 09:53 AD Date Reviewed COLST On File at [facility] COLST Date Scanned Code Status Resuscitation Status DNR/DNI Portal Pt does not currently have a portal and education provided: No Insurance Coverage/Financial Issues Insurance: Medicaid Care Team Visit Care Team Role Provider Type Unknown Unknown Primary Care Provider STAFF PHYSICIAN Mike Montalvo MD Emergency Provider [facility] STAFF PHYSICIAN Mike Acevedo Admit Provider [facility] STAFF PHYSICIAN Attending Provider Discharge Potential Discharge Needs: Other (return to [facility]) Anticipated Barriers to Discharge: None Identified Patient/Family Education Needs: Review discharge instructions, discuss Ask Me Three Transportation: RCT Plan: Anticipate Danette will return to the [facility] when medically cleared. She will follow up with the facility providers and plan of care and transport via RCT. CM will follow and continue to support discharge planning efforts. Social Determinants of Health Screening Social Determinants of Health last assessed: 11/15/24 Will the Patient Participate in the Screening?: Yes Do you worry about having a steady place to live?: no Problems where you live: no known problems In the past 12 months, have you had to go without electric, gas, oil or water in your home?: no Have you or anyone in your house had to go without enough food to eat?: no Has lack of transportation kept you from medical appointments or from doing things needed for daily living?: no Has anyone in your life made you feel unsafe or unsupported?: no How hard is it for you to pay for the very basics like food, housing, medical care, and heating? Would you say it is:: Not hard at all Do you want help finding or keeping work or a job?: I do not need or want help If for any reason you need help with day-to-day activities such as bathing, preparing meals, shopping, managing finances, etc., do you get the help you need?: I don?t need any help How often do you feel lonely or isolated from those around you?: Sometimes Do you speak a language other than Macedonian at home?: No Does the patient want assistance with any of the above?: No Health Related Social Needs Health related social needs: feeling lonely/isolated (Z60.8) [facility], [facility] All Active Problems (Updated 11/14/24 @ 15:28 by Arline Robison APRN) Discharge planning issues (Acute) On deep vein thrombosis (DVT) prophylaxis (Acute) COPD exacerbation (Acute) Acute hypoxemic respiratory failure (Acute) Community acquired pneumonia (Acute) Respiratory failure (Acute) Former cigarette smoker (Acute) Urinary incontinence (Acute) Polyosteoarthritis (Acute) Unspecified macular degeneration (Acute) Encounter for immunization (Acute) Allergic rhinitis due to animal (cat) (dog) hair and dander (Acute) Localized edema (Acute) Cough (Acute) Shortness of breath (Acute) Vascular dementia without behavioral disturbance (Acute) Cognitive communication deficit (Acute) Chronic combined systolic and diastolic heart failure (Acute) Irritable bowel syndrome with diarrhea (Acute) Major depressive disorder with single episode (Acute) Sprain of left upper arm (Acute) Head injury (Acute) Laceration of scalp (Acute) Removal of crystal (Acute) ASHD (arteriosclerotic heart disease) (Chronic) Lone atrial fibrillation (Acute) Atrial fibrillation (Chronic) NSTEMI (non-ST elevated myocardial infarction) (Acute) Coronary artery disease (Chronic) Dyslipidemia (Chronic) Hypertension (Chronic) Tobacco abuse (Chronic) Frequent headaches (Chronic) Colon polyps (Chronic) GERD (gastroesophageal reflux disease) (Chronic) Fibrocystic breast changes (Chronic) Osteoarthritis (Chronic) Depression (Chronic) Memory loss (Chronic) Insomnia (Chronic) PTSD (post-traumatic stress disorder) (Chronic) Seasonal allergies (Chronic) Chronic pain (Chronic) Fibromyalgia (Chronic) Vitamin B 12 deficiency (Chronic) COPD (chronic obstructive pulmonary disease) (Chronic) Medical History Hx of falling Bronchitis Adenocarcinoma of endometrium Other chronic pain fibromyalgia Hyperlipidemia Anxiety Benign hypertension Wrist fracture, right Surgical History Replacement of total knee joint (02/07/08) right Total replacement of hip (09/11/08) left hip, right hip, right ANGELINA revision femoral stem with open reduction and internal fixation of periprosthetic fracture with cerclage cables. Total replacement of hip (09/04/08) left hip, right hip, right ANGELINA revision femoral stem with open reduction and internal fixation of periprosthetic fracture with cerclage cables. Total replacement of hip (03/26/01) left hip, right hip, right ANGELINA revision femoral stem with open reduction and internal fixation of periprosthetic fracture with cerclage cables. Hyseterectomy, Total Laparoscopic w/ BSO Social History (Updated 09/30/24 @ 00:27 by Mike Acevedo) Smoking/Tobacco Use Status: Former Tobacco Use Quit Date: 05/01/16 Smoking risk assessment performed?: Yes Alcohol Intake: never Drug use: Never Substance use type: does not use Housing: [facility] Do you feel safe at home: Yes Do you feel safe in your relationship?: Yes Additional Social history: from [place], moved into [facility] in 2021
--- NOTE | 2024-11-15 09:39 | PGE_ITS ---
Date of Service Date of service: 11/15/24 Time of Service: 09:40 Assessment and Plan Assessment and plan (1) Acute hypoxemic respiratory failure: Status: Acute Assessment and plan: Resolved -New oxygen requirement in the setting of most likely COPD exacerbation. ACS unlikely as per ED workup and patient symptomatology. Moreover the patient is improving Will continue oral steroids intitated in the ED and add doxycycline, mucinex,scheduled and PRN nebs, acapella, IS Wean O2 for sat 88-92% -BNP negative -Unlikely Sepsis w/o a source considered d/t tachypnea and leukocytosis as patient inmproved on Tx for exacerbation of COPD -MRSA PCR was negative -Blood Cx negative - Had a dose of Cefepime in the ED- will not continue (2) COPD exacerbation: Status: Acute Assessment and plan: On admit: Reporting increased cough frequency and change in sputum color Improving And as above (3) Cough: Status: Acute Assessment and plan: Tessalon Perles 3 times daily cough drops PRN (4) Former cigarette smoker: Status: Acute Assessment and plan: continue NRT as needed (5) On deep vein thrombosis (DVT) prophylaxis: Status: Acute Assessment and plan: On lovenox (6) Discharge planning issues: Status: Acute Assessment and plan: D/c to the [facility] when medically cleared. possible d/c in AM Discussed with Dr. Acevedo Subjective Subjective Patient reports: no new complaints ( but still reports some gen weakness), feels better, tolerating liquids well, tolerating a regular diet and voiding w/o difficulty; denies no bowel movement (refusing docusate), diarrhea, nausea, vomiting, shortness of breath or fever Exam Narrative Exam Narrative: Constitutional The patient in chair without acute distress on RA Neuro:alert and oriented to self,place, time . non-focal Chest:Chest is symmetrical and normal appearance Resp: unlabored breathing, clear lung - slight exp wheezing to the left upper lung field Cardio: regular rhythm, S1, S2, no murmur, bilateral radial and dorsalis pedis pulses are positive, palpable GI: Abdomen is not distended, soft and non tender, bowel sounds are present Extremities: strength 5/5 to bilateral lower and upper extremities Psych: RASS 0, congruent mood and normal affect. Objective Last Vital Signs Temp 36.6 C 11/15/24 07:31 Pulse 67 11/15/24 07:31 Resp 16 11/15/24 07:31 BP 128/65 11/15/24 07:31 Pulse Ox 91 L 11/15/24 08:29 Laboratory Results - last 24 hr 11/14/24 11/14/24 11/14/24 10:00 10:49 12:46 WBC 14.59 H RBC 4.49 Hgb 12.3 Hct 39.1 MCV 87 MCH 27.4 MCHC 31.5 L RDW 15.9 H Plt Count 291 MPV 9.6 Immature Gran % 0.4 Neutrophils % 80.7 Lymphocytes % 12.2 Monocytes % 6.0 Eosinophils % 0.3 Basophils % 0.4 Nucleated RBC % 0.0 Absolute Neutrophils 11.77 H Absolute Lymphocytes 1.78 Absolute Monocytes 0.88 H Absolute Eosinophils 0.04 Absolute Basophils 0.06 VBG pH 7.38 VBG pCO2 48 VBG pO2 31 VBG HCO3 28 VBG Total CO2 26 VBG O2 Saturation 58 VBG Base Excess 3 VBG Lactate 1.6 Sodium 137 Potassium 3.5 Chloride 102 Carbon Dioxide 29.5 Anion Gap 5.5 BUN 7 Creatinine 0.6 Est GFR (CKD-EPI 2020) 89.56 Glucose 135 H Calcium 8.8 NT-Pro-B Natriuret Pep 216 Urine Color Yellow Urine Clarity Clear Urine pH 5.5 Ur Specific Monarch <= 1.005 Urine Protein Negative Urine Ketones Negative Urine Blood Negative Urine Nitrite Negative Urine Bilirubin Negative Urine Urobilinogen 0.2 Ur Leukocyte Esterase Negative Urine Glucose Negative COVID-19 Source Nasopharynx SARS-CoV-2 (PCR) Negative Influenza Type A (PCR) Negative Influenza Type B (PCR) Negative RSV (PCR) Negative MRSA (TEM-PCR) Negative 11/15/24 06:15 WBC 12.57 H RBC 4.18 Hgb 11.4 Hct 36.1 MCV 86 MCH 27.3 MCHC 31.6 L RDW 15.9 H Plt Count 273 MPV 9.5 Immature Gran % 0.7 Neutrophils % 81.7 Lymphocytes % 13.4 Monocytes % 3.8 Eosinophils % 0.3 Basophils % 0.1 Nucleated RBC % 0.0 Absolute Neutrophils 10.27 H Absolute Lymphocytes 1.68 Absolute Monocytes 0.48 Absolute Eosinophils 0.04 Absolute Basophils 0.01 VBG pH VBG pCO2 VBG pO2 VBG HCO3 VBG Total CO2 VBG O2 Saturation VBG Base Excess VBG Lactate Sodium 141 Potassium 4.0 Chloride 104 Carbon Dioxide 29.1 Anion Gap 7.9 BUN 11 Creatinine 0.5 L Est GFR (CKD-EPI 2020) 93.59 Glucose 139 H Calcium 9.1 NT-Pro-B Natriuret Pep Urine Color Urine Clarity Urine pH Ur Specific Monarch Urine Protein Urine Ketones Urine Blood Urine Nitrite Urine Bilirubin Urine Urobilinogen Ur Leukocyte Esterase Urine Glucose COVID-19 Source SARS-CoV-2 (PCR) Influenza Type A (PCR) Influenza Type B (PCR) RSV (PCR) MRSA (TEM-PCR) Time Spent with Patient Time Spent with Patient: >50 minutes Time was spent: preparing to see the patient(eg.review tests), obtaining and/or reviewing separately otained hiistory, ordering medications,tests, procedures, referring, communicating with other health healthcare risk control consultant, indepentently interpreting results, counseling the patient and care coordination
[2024-11-15] MEDS: DOXYCYCLINE 100 MG in Normal Saline 100 ML IVPB ×2 (10:47→21:17)
--- NOTE | 2024-11-15 12:24 | IN_ITS ---
PT Notes Visit Reasons: Hypoxic Respiratory Failure Physical Therapy Inpatient Initial Evaluation Date: 11/15/2024 Referring Doctor: Arline Robison PT Orders: PT CONSULT: Fall Safety Assessment Precautions: IV Access RUE, standard, telemetry Patient Profile/Admitting Diagnosis: Pt is an 84 yo female presented to ED on 11/14/24 from [facility] with cough for several days, fever, nausea, and hypoxia requiring 2L/min of supplemental oxygen. work up in ED for Leukocytosis. CxR: Scarring mid + lower right lung without infiltrate. Pt (-) Flu/COVID/RSV. Pt admitted to Med Surg Unit for further medical mgmt . Pt treated with IV ABx PMHX: Discharge planning issues (Acute) On deep vein thrombosis (DVT) prophylaxis (Acute) COPD exacerbation (Acute) Acute hypoxemic respiratory failure (Acute) Community acquired pneumonia (Acute) Respiratory failure (Acute) Former cigarette smoker (Acute) Urinary incontinence (Acute) Polyosteoarthritis (Acute) Unspecified macular degeneration (Acute) Encounter for immunization (Acute) Allergic rhinitis due to animal (cat) (dog) hair and dander (Acute) Localized edema (Acute) Cough (Acute) Shortness of breath (Acute) Vascular dementia without behavioral disturbance (Acute) Cognitive communication deficit (Acute) Chronic combined systolic and diastolic heart failure (Acute) Irritable bowel syndrome with diarrhea (Acute) Major depressive disorder with single episode (Acute) Sprain of left upper arm (Acute) Head injury (Acute) Laceration of scalp (Acute) Removal of crystal (Acute) ASHD (arteriosclerotic heart disease) (Chronic) Lone atrial fibrillation (Acute) Atrial fibrillation (Chronic) NSTEMI (non-ST elevated myocardial infarction) (Acute) Coronary artery disease (Chronic) Dyslipidemia (Chronic) Hypertension (Chronic) Tobacco abuse (Chronic) Frequent headaches (Chronic) Colon polyps (Chronic) GERD (gastroesophageal reflux disease) (Chronic) Fibrocystic breast changes (Chronic) Osteoarthritis (Chronic) Depression (Chronic) Memory loss (Chronic) Insomnia (Chronic) PTSD (post-traumatic stress disorder) (Chronic) Seasonal allergies (Chronic) Chronic pain (Chronic) Fibromyalgia (Chronic) Vitamin B 12 deficiency (Chronic) COPD (chronic obstructive pulmonary disease) (Chronic) Medical History Hx of falling Bronchitis Adenocarcinoma of endometrium Other chronic pain fibromyalgiaHyperlipidemia Anxiety Benign hypertension Wrist fracture, right Surgical History Replacement of total knee joint (02/07/08) rightTotal replacement of hip (09/11/08) left hip, right hip, right ANGELINA revision femoral stem with open reduction and internal fixation of periprosthetic fracture with cerclage cables.Total replacement of hip (09/04/08) left hip, right hip, right ANGELINA revision femoral stem with open reduction and internal fixation of periprosthetic fracture with cerclage cables.Total replacement of hip (03/26/01) left hip, right hip, right ANGELINA revision femoral stem with open reduction and internal fixation of periprosthetic fracture with cerclage cables.Hyseterectomy, Total Laparoscopic w/ BSO Social History/Home Situation: Pt resides at [facility]. She is 1 assist/supervision for bed mobility, transfers with rollator. She ambulates with PT daily >200 feet. She is out of bed all day and enjoys watching TV and going out with her son or daughter for trips Equipment Owned/DME: rollator, wheelchair Subjective: Pt reports she is feeling worse today then she did yesterday but will try to walk alittle bit. Objective: [] General Observation: Upright with IV antibiotic infusing into RUE. Mental Status: A+Ox3 pt able to recall events leading to admission. Pt cooperative and able to follow all instructions. Pt agreeable to participate in evaluation. 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 Left Upper Extremity: able to move less than 1/2 ROM shoulder flexion and abduction, elbow wrist and hand 5/5 Right Lower Extremity: Hip flexion: 3-/5; hip abduction: 3- /5; hip extension: 3-/5; knee extension: 3+ /5; knee flexion: 3- /5 ankle DF: 3/5 ; ankle PF: 3/5 Left Lower Extremity: Hip flexion: 3- /5; hip abduction: 3- /5; hip extension: 3- /5; knee extension: 3+ /5; knee flexion:3- /5 ankle DF: 3 /5 ; ankle PF:3 /5 ROM: [] Right Upper Extremity: WFL Left Upper Extremity: impaired GHJ elevation and abd to 85 degrees AAROM, elbow wrist and hand WFL Right Lower Extremity:WFL DF to neutral Left Lower Extremity: WFL DF to neutral Sensation: intact Bed Mobility/Transfers: [] Supine to sit min A Sit to stand CGA cues for hand Stand to sit CGA Bed to chair CGA with FWW Gait: amb with FWW 40 feet with CGA reciprocal pattern , decreased B step length, pt with adequate foot clearance. Balance: [] Static Sitting: Normal Dynamic Sitting: Good - Static Standing: Good Dynamic Standing: Fair Special Tests: [] Mobility Limitations Standardized Measure [] [facility] 6 clicks Basic Mobility Inpatient Short Form: [] Raw Score: 16 CMS Score: 54.16% Informed Consent/Education: Patient instructed in purpose of PT consult. Assessment: Patient is an 84 yo female who presents with clinical signs and symptoms consistent with current/admitting diagnoses that have resulted to mobility limitations, gait instability, generalized weakness, and impairment of motor control as demonstrated by the following impairment level findings: 1. Decreased strength to left shoulder major muscle groups 2. Impaired standing balance 3. Limitation of joint range of motion in left shoulder 4. impaired functional activity tolerance Impairments are contributing to the following functional limitations: 1. Inability to safely ambulate without assistive device 2. Increase completion time for mobility ADL performance 3. Increased fall risk 4. decline in bed mobility skills 5. decline in transfer skills Pt. demonstrates generalized weakness limiting her ability to participate and perform functional daily tasks at her baseline. Patient is assessed as a low complexity based on the following: History: 84-year-old female with impairment level findings, functional limitations, and past medical history as indicated above Examination: Demonstrable impairment in strength, balance, and mobility level with underlying impairments and functional limitations as documented above Presentation: stable Decision Making: low Goals: 1. supervision bed mobility 2. supervision transfers with FWW 3. ambulation with FWW supervision 100feet Plan of Care/Treatment Plan: 1-2x/day, 7 days/week x 1 week. Plan of care has been reviewed with the HUMAN SERVICES WORKER providing the service under Physical Therapy direction. Initiate Physical Therapy intervention for strengthening, bed mobility, transfers, gait, stairs, balance training, use of assistive device. DISCHARGE RECOMMENDATIONS:Return to [facility] with resumption of skilled PT and OT for left shoulder TREATMENT CODE/TIME: [id number] Thank you for the opportunity to participate in the care of this patient. Montserrat Larios,PT [facility]
[2024-11-15] MEDS: Benzocaine/Menthol LOZG 15/BOX 1 EACH SUC ×2 (13:13→19:34)
--- NOTE | 2024-11-15 15:14 | PTTR_ITS ---
PT Notes Visit Reasons: Hypoxic Respiratory Failure Inpatient Physical Therapy Treatment Note [facility] Date:11/15/2024 PRECAUTIONS:IV Access RUE SUBJECTIVE: Pt reports she got cough drops and they seem to be helping but they do not taste good. OBJECTIVE: pt presented slumped down in recliner with BLE elevated.? PAIN: denies Therapeutic Activities (76091): Direct one-on-one instruction in dynamic activities to improve functional performance. ?? Provided skilled cues and instruction on performance and technique throughout. - facilitated functional transfers with FWW from ed , chair and toilet with CGA/SBA with cues for hand placement. - Facilitated safe and correct performance of level surface ambulation covering a distance of 40 feetx2 15 feet x 2 using use front wheeled walker with contact- guard assist . Did not report of any increased pain. Denied headache, chest pain, and lightheadedness throughout activity. Minimal verbal cueing provided for AD management, directional changes, and posture. ASSESSMENT:? Pt with increased tolerance to functional tasks this pm as compared to am session. She had less coughing as well in pm. She noted fatigue at end of session stating her legs were feeling all the walking. PLAN: 1-2x/day, 7 days/week x 1 week. Plan of care has been reviewed with the HAND SHOE CUTTER providing the service under Physical Therapy direction. Initiate Physical Therapy intervention for strengthening, bed mobility, transfers, gait, stairs, balance training, use of assistive device. TREATMENT CODE/TIME: [id number] DISCHARGE RECOMMENDATION:Return to [facility] and resume skilled PT and OT
--- NOTE | 2024-11-15 15:27 | CHAPLAIN ---
Danette was sitting up in the chair when I visited. She was pleasant and easily engaged in conversation. She's worked twice with PT today, Danette said. Her daughter, Mignon, works at [employer] in environmental services and has been checking in on Danette. Danette lives at the [facility], for the past three years. She said since living there she's had COVID three times and also pneumonia. She thinks she returned to the [facility] too soon last time. Danette shared some personal history, telling me about her kids and grandkids. I left when Mignon came in to visit.
--- NOTE | 2024-11-15 15:34 | PHA.REVIEW2 ---
Pharmacy Admission Review Admission Clinical Review Admission Pharmacy Review: Discharge planning issues (Acute) On deep vein thrombosis (DVT) prophylaxis (Acute) COPD exacerbation (Acute) Acute hypoxemic respiratory failure (Acute) Former cigarette smoker (Acute) Cough (Acute) Penicillins Allergy (Severe, Verified 11/14/24 11:14) Anaphylaxsis codeine Allergy (Unknown, Verified 11/14/24 11:14) Unknown Resuscitation Status DNR/DNI Height 5 ft 4 in Weight 83.461 kg Comments Comments/Follow Ups: Watch VS, labs, for culture results and for med changes. Pharmacy Admission Review Renal Dosing Renal Dosing: BUN 11 mg/dL (7-18) 11/15/24 06:15 Creatinine 0.5 mg/dL (0.55-1.02) L 11/15/24 06:15 Medications needing adjustments: Reviewed (Crcl ~75 mL/min if you do not round SCr to 1.0, current meds are okay) Anticoagulation Anticoagulation: Hgb 11.4 g/dL (11.2-15.7) 11/15/24 06:15 Hct 36.1 % (36.0-46.0) 11/15/24 06:15 Plt Count 273 10^3/uL (130-400) 11/15/24 06:15 Creatinine 0.5 mg/dL (0.55-1.02) L 11/15/24 06:15 DVT Prophylaxis: Reviewed Medications: Enoxaparin Opiate Usage Evaluate Pain Scale/Pains Meds: N/A Relevant Labs Relevant Labs: Sodium 141 mmol/L (136-145) 11/15/24 06:15 Potassium 4.0 mmol/L (3.5-5.1) 11/15/24 06:15 Chloride 104 mmol/L (98-107) 11/15/24 06:15 Electrolytes, C-Reactive P, ESR: Reviewed DM Control DM Control: Glucose 139 mg/dL (74-106) H 11/15/24 06:15 DM Control: Reviewed (No DM in medical history, previous A1c from 2021) Cardiac Review Cardiac Review: NT-Pro-B Natriuret Pep 216 pg/mL (<300) 11/14/24 10:00 BP, HR, EF%: Reviewed (BP and HR have been within normal limits so far today) QTc Review QTc: Reviewed (QTc 425 per EKG done on admission) IV to PO Switch IV Medications: Reviewed Home Meds Home Med List reviewed: Reviewed Relevent Home Meds Not ordered & why?: trelegy ellipta (has symbicort and spiriva subbed for this), nitroglycerin (PRN) Current Meds Current Medication Order Review: Intervened (Talked to provider about vanco dose in ED, talked to provider about dosing info/sig for loperamide as there was none entered, added PRN to the frequency of guaifenesin order so it crosses to pyxis correctly.) Pharmacy Antibiotic Review Pharmacy Antibiotic Activity: C/S review and Reviewed, no change Comments: Blood cultures no growth at 24 hours. Doxycycline continues (day 2). Comments Comments/Follow Ups: Watch VS, labs, for culture results and for med changes.
[2024-11-15] MEDS: Gabapentin 300 MG CAP 600 MG PO (19:36)
[2024-11-15] MEDS: Albuterol/Ipratropium 3 ML UPD VIAL UPD (19:37)
[2024-11-16 03:25] VITALS: BP 130/73; PULSE 69; RESP 16; TEMP 37.1; O2SAT 89
[2024-11-16 06:52] LABS: Abs Immature Grans 0.11 10^3/uL (0.0-0.06); Absolute Basophil Count 0.02 10^3/uL (0.0-0.2); Absolute Lymphocyte Count 2.77 10^3/uL (1.2-3.4); Absolute Monocyte Count 0.89 10^3/uL (0.1-0.8); Basophils % 0.1 %; HCT 35.2 % (36.0-46.0); HGB 11.2 g/dL (11.2-15.7); Immature Grans % 0.7 %; MCH 27.1 pg (27.0-33.0); MCHC 31.8 % (32.0-36.0); MCV 85 fL (80-95); MPV 9.9 fL (8.0-11.0); Monocytes % 5.8 %; Neutrophils % 75.4 %; Platelet Count 336 10^3/uL (130-400); RBC 4.14 10^6/uL (3.93-5.22); RDW 15.9 % (11.7-14.6); RDW-SD 50.1 fL; WBC 15.39 10^3/uL (4.4-10.8)
[2024-11-16 07:11] LABS: Anion Gap 7.7 mmol/L (3-11); BUN 14 mg/dL (7-18); CO2 28.3 mmol/L (21.0-32.0); CREATININE 0.5 mg/dL (0.55-1.02); Chloride 105 mmol/L (98-107); Estimated GFR 93.59 (mL/min/1.73m2); Glucose 106 mg/dL (74-106); Potassium 3.2 mmol/L (3.5-5.1); Sodium 141 mmol/L (136-145)
[2024-11-16] MEDS: Benzocaine/Menthol LOZG 15/BOX 1 EACH SUC (07:39)
[2024-11-16] MEDS: Enoxaparin 40 MG/0.4 ML SYR SC (07:40)
[2024-11-16] MEDS: Normal Saline Flush 10 ML SYR IVP ×2 (07:40→09:52)
[2024-11-16] MEDS: Acetaminophen 500 MG TAB 1000 MG PO (07:41)
[2024-11-16] MEDS: guaiFENesin 600 MG TABCR PO (07:42)
[2024-11-16] MEDS: Ibuprofen 600 MG TAB PO (07:42)
[2024-11-16] MEDS: Benzonatate 100 MG CAP PO (07:42)
[2024-11-16] MEDS: Metoprolol 50 MG TAB PO (07:42)
[2024-11-16] MEDS: Meclizine 12.5 MG TAB PO (07:43)
[2024-11-16] MEDS: buPROPion-XL 150 MG TABCR 300 MG PO (07:43)
[2024-11-16] MEDS: Famotidine 20 MG TAB PO (07:43)
[2024-11-16] MEDS: Furosemide 20 MG TAB PO (07:44)
[2024-11-16] MEDS: Citalopram 20 MG TAB PO (07:44)
[2024-11-16] MEDS: Potassium Chloride 10 MEQ TABCR PO (07:44)
[2024-11-16] MEDS: amLODIPine 10 MG TAB PO (07:45)
[2024-11-16] MEDS: predniSONE 20 MG TAB 40 MG PO (07:45)
[2024-11-16] MEDS: Fluticasone NASAL SPRAY 16 GM BTL NS (07:46)
[2024-11-16 07:50] VITALS: BP 146/73; PULSE 78; RESP 17; TEMP 36.7; O2SAT 91
[2024-11-16] MEDS: Tiotropium Bromide-Respimat 10 PUFF INH IH (08:38)
[2024-11-16] MEDS: Budesonide/Formoterol 80/4.5 6.9 GM 60 PUFF INH IH (08:38)
--- NOTE | 2024-11-16 09:18 | CMDISCH_ITS ---
Date of service: 11/16/24 Time of Service: 09:18 LACE Index Scoring Tool Questions: Length of Stay (in days): 2 Was the patient admitted via the E.D.?: Yes Comorbidities: Previous M.I., Congestive Heart Failure, Chronic Pulmonary Disease, Any Tumor and Dementia E.D. Visits: 2 Answers: Total Score: 12 Risk of Readmission: High Risk Care Management Discharge Plan Reason for Hospitalization: COPD Discharge Plan: Danette will return to the [facility] where she resides. She will follow up with the facility providers and plan of care and transport via RCT. Patient/Family Education Needs: Review discharge instructions, discuss Ask Me Three Services Needed at Discharge: Detention Facility SDOH Health Related Social Needs: Health related social needs feeling lonely/isolated (Z 60.8)
[2024-11-16 09:47] LABS: Lab Add On Test DONE
[2024-11-16] MEDS: DOXYCYCLINE 100 MG in Normal Saline 100 ML IVPB (09:52)
--- NOTE | 2024-11-16 10:01 | W.PM.DS.N ---
Date of service: 11/16/24 Time of Service: 10:01 DS: Diagnosis Discharge Diagnosis (1) Acute hypoxemic respiratory failure: Status: Acute (2) COPD exacerbation: Status: Acute (3) Cough: Status: Acute (4) Former cigarette smoker: Status: Acute (5) On deep vein thrombosis (DVT) prophylaxis: Status: Acute (6) Discharge planning issues: Status: Acute Discharge Plan Disposition Patient Disposition: Longterm Facility(SNF) Condition: Improving Discharge Details Reason For Visit: Hypoxic Respiratory Failure Admit Date/Time: 11/14/24 11:26 Admit Provider: Mike Acevedo Attending Provider: Mike Acevedo Primary Care Provider: Unknown,Unknown Hospital Course Hospital Course: This 84 years old female patient with past medical history of COPD, nicotine dependence, CAD, HFrEF, atrial fibrillation, mild vascular dementia recently treated for pneumonia in October 2024.Workup in the ED was positive for leukocytosis , chest XR negative for infiltrate. The patient was admitted for acute hypoxic respiratory failure, COPD exacerbation to the medical surgical floor by the hospitalist service. The patient was treated with doxycycline, oral steroids, nebulizer treatments, benzonate and mucinex. On the day of discharge the patient had no further need for oxygen supplementation and was hemodynamically stable. The patient will be discharged to the [facility] on mucinex, prednisone burst and a short course of doxycycline. Discussed with Dr. Acevedo Home Meds and New Rx's Prescriptions: New benzonatate 100 mg Capsule 100 mg PO TID Qty: 14 0RF guaifenesin [Mucus Relief ER] 600 mg Tablet Extended Release 12hr 600 mg PO BID Qty: 10 0RF prednisone 20 mg Tablet 40 mg PO DAILY Qty: 10 0RF doxycycline hyclate 100 mg capsule 100 mg PO BID Qty: 10 0RF Combivent Respimat 20-100 mcg/actuation mist 1 puff inhalation QID Qty: 4 0RF Rx Instructions: space evenly during waking hours For 5 days then stop. Continued cholestyramine (with sugar) 4 gram powder See Rx Instructions PO .COMPLEX Rx Instructions: orally Prior to dinner disolved in 4-8oz H2O; losartan 25 mg tablet 25 mg PO DAILY guaifenesin [Tussin] 100 mg/5 mL liquid 200 mg PO Q4H PRN promethazine 25 mg tablet 25 mg PO BID PRN promethazine 50 mg suppository See Rx Instructions CO .COMPLEX PRN (Reason: nausea and vomiting) Rx Instructions: rectally Q4-6 hours PRN; Incruse Ellipta 62.5 mcg/actuation blister with device 1 inh inhalation DAILY nitroglycerin [Nitrostat] 0.4 MG tablet, sublingual 0.4 mg Buccal Q5 MIN PRN X3 PRN furosemide [Lasix] 20 MG tablet 20 mg PO DAILY Patient Comments: every other day vitamin B complex Tablet 1 tab PO DAILY famotidine 20 mg tablet 20 mg PO DAILY aspirin [Adult Aspirin Regimen] 81 mg tablet,delayed release (DR/EC) 81 mg PO DAILY loratadine [Allergy Relief (loratadine)] 10 mg tablet 10 mg PO DAILY fluticasone propionate 50 mcg/actuation spray,suspension 1 spray intranasal BID Rx Instructions: administer into each nostril Trelegy Ellipta 100-62.5-25 mcg blister with device 1 inh inhalation DAILY nicotrol inhaler cartridge See Rx Instructions .ROUTE .COMPLEX Rx Instructions: as directed; loperamide [Anti-Diarrheal (loperamide)] 2 mg capsule 2 mg PO .COMPLEX PRN Rx Instructions: 2 mg orally as directed PRN; gabapentin [Neurontin] 300 MG capsule 600 mg PO HS Patient Comments: 900 QHS ibuprofen 600 mg tablet 600 mg PO DAILY acetaminophen 500 mg tablet 1,000 mg PO TID Rx Instructions: scheduled for chronic pain meclizine 12.5 mg tablet 12.5 mg PO TID amlodipine [Norvasc] 10 MG tablet 10 mg PO DAILY albuterol sulfate [Ventolin HFA] 8 GM HFA aerosol inhaler 2 puff Inhalation Q4H PRN B-12 Compliance 1,000 MCG/ML kit 1,000 mcg IM DIRECTED Patient Comments: monthly potassium chloride 10 mEq tablet extended release 10 meq PO DAILY bupropion HCl 300 mg tablet extended release 24 hr 300 mg PO DAILY metoprolol tartrate 50 mg tablet 50 mg PO BID citalopram 20 mg tablet 20 mg PO DAILY Discharge Instructions Referrals: Unknown,Unknown [Primary Care Provider] - (Follow-up with outpatient medical provider within 7 days of discharge please.) Activity:: Activity as Tolerated Equipment/Supplies:: Walker Diet:: heart healthy diabetic DS: Summary Time Spent with Patient providing and/or coordinating discharge services: Greater than 30 minutes Status at Discharge Functional status at discharge: uses cane/walker Overall status at discharge: patient is progressing back to baseline Mental Status: mental status grossly normal Speech and Movement: speech and movement normal Mood: irritable mood Affect: irritable affect Quality:SDOH Health Related Social Needs: Health related social needs feeling lonely/isolated (Z60.8) Exam Narrative Exam Narrative: Constitutional The patient in chair without acute distress on RA Neuro:Alert and oriented to self,place, time . non-focal Chest:Chest is symmetrical and normal appearance Resp: Unlabored breathing, clear lung with diminished- minimal upper airway exp. wheezing Cardio: regular rhythm, S1, S2, no murmur GI: Abdomen is not distended, soft and non tender Psych: RASS 0, irritable- mood and normal affect. Psych Mental Status: mental status grossly normal Speech and Movement: speech and movement normal Mood: irritable mood Affect: irritable affect DS: Data Vitals/I&O Vitals and I&O: Vital Signs Temperature 36.7 C 11/16/24 07:50 Temperature Source Temporal Artery Scan 11/16/24 07:50 Pulse 78 11/16/24 07:50 Pulse Rhythm Regular 11/14/24 13:06 Pulse 73 11/14/24 12:32 Respiratory Rate 17 11/16/24 07:50 Respiratory Effort Short of Breath 11/14/24 13:06 Respiratory Depth Shallow 11/14/24 13:06 Respiratory Pattern Normal 11/14/24 13:06 Blood Pressure 146/73 H 11/16/24 07:50 Blood Pressure Mean 80 11/14/24 12:32 Pulse Oximetry 91 L 11/16/24 07:50 Oxygen Delivery Method Room Air 11/16/24 07:50 Oxygen Flow Rate 0 11/16/24 07:50 Pain Level 0 11/15/24 14:45 Comment Primary RN Cecilio at bedside 11/14/24 12:53 Intake & Output 11/15/24 11/15/24 11/16/24 11:59 23:59 11:59 Intake Total 150 / 630 480 / 630 Output Total 300 / 400 100 / 400 Balance -150 / 230 380 / 230 Intake: IV 300 / 300 Oral 150 / 330 180 / 330 Output: Urine 300 / 400 100 / 400 Other: Urine Color Yellow Yellow Urine Appearance Clear Clear Urine Odor Normal None Comment Visualized in toilet, missed the hat Stool Size Small Stool Characteristics Soft Formed Data Completed and Pending Labs on day of discharge: Labs from last 24 hours 11/16/24 06:20 WBC 15.39 H RBC 4.14 Hgb 11.2 Hct 35.2 L MCV 85 MCH 27.1 MCHC 31.8 L RDW 15.9 H Plt Count 336 MPV 9.9 Immature Gran % 0.7 Neutrophils % 75.4 Lymphocytes % 18.0 Monocytes % 5.8 Eosinophils % 0.0 Basophils % 0.1 Nucleated RBC % 0.0 Absolute Neutrophils 11.60 H Absolute Lymphocytes 2.77 Absolute Monocytes 0.89 H Absolute Eosinophils 0.00 Absolute Basophils 0.02 Sodium 141 Potassium 3.2 L Chloride 105 Carbon Dioxide 28.3 Anion Gap 7.7 BUN 14 Creatinine 0.5 L Est GFR (CKD-EPI 2020) 93.59 Glucose 106 Hemoglobin A1c Pending Calcium 9.0 Add-On Test Request DONE Preliminary micro results at discharge 11/14/24 10:00 Blood Culture - Preliminary Blood NO GROWTH 24 HOURS 11/14/24 09:50 Blood Culture - Preliminary Blood NO GROWTH 24 HOURS PFSH All Active Problems (Updated 11/14/24 @ 15:28 by Arline Robison APRN) Discharge planning issues (Acute) On deep vein thrombosis (DVT) prophylaxis (Acute) COPD exacerbation (Acute) Acute hypoxemic respiratory failure (Acute) Community acquired pneumonia (Acute) Respiratory failure (Acute) Former cigarette smoker (Acute) Urinary incontinence (Acute) Polyosteoarthritis (Acute) Unspecified macular degeneration (Acute) Encounter for immunization (Acute) Allergic rhinitis due to animal (cat) (dog) hair and dander (Acute) Localized edema (Acute) Cough (Acute) Shortness of breath (Acute) Vascular dementia without behavioral disturbance (Acute) Cognitive communication deficit (Acute) Chronic combined systolic and diastolic heart failure (Acute) Irritable bowel syndrome with diarrhea (Acute) Major depressive disorder with single episode (Acute) Sprain of left upper arm (Acute) Head injury (Acute) Laceration of scalp (Acute) Removal of crystal (Acute) ASHD (arteriosclerotic heart disease) (Chronic) Lone atrial fibrillation (Acute) Atrial fibrillation (Chronic) NSTEMI (non-ST elevated myocardial infarction) (Acute) Coronary artery disease (Chronic) Dyslipidemia (Chronic) Hypertension (Chronic) Tobacco abuse (Chronic) Frequent headaches (Chronic) Colon polyps (Chronic) GERD (gastroesophageal reflux disease) (Chronic) Fibrocystic breast changes (Chronic) Osteoarthritis (Chronic) Depression (Chronic) Memory loss (Chronic) Insomnia (Chronic) PTSD (post-traumatic stress disorder) (Chronic) Seasonal allergies (Chronic) Chronic pain (Chronic) Fibromyalgia (Chronic) Vitamin B 12 deficiency (Chronic) COPD (chronic obstructive pulmonary disease) (Chronic) Medical History Hx of falling Bronchitis Adenocarcinoma of endometrium Other chronic pain fibromyalgia Hyperlipidemia Anxiety Benign hypertension Wrist fracture, right Surgical History Replacement of total knee joint (02/07/08) right Total replacement of hip (09/11/08) left hip, right hip, right ANGELINA revision femoral stem with open reduction and internal fixation of periprosthetic fracture with cerclage cables. Total replacement of hip (09/04/08) left hip, right hip, right ANGELINA revision femoral stem with open reduction and internal fixation of periprosthetic fracture with cerclage cables. Total replacement of hip (03/26/01) left hip, right hip, right ANGELINA revision femoral stem with open reduction and internal fixation of periprosthetic fracture with cerclage cables. Hyseterectomy, Total Laparoscopic w/ BSO Social History (Updated 09/30/24 @ 00:27 by Mike Acevedo) Smoking/Tobacco Use Status: Former Tobacco Use Quit Date: 05/01/16 Smoking risk assessment performed?: Yes Alcohol Intake: never Drug use: Never Substance use type: does not use Housing: snf Do you feel safe at home: Yes Do you feel safe in your relationship?: Yes Additional Social history: from [place], [facility] in 2021 Time Spent with Patient Time Spent with Patient: 70-84 minutes4 Time was spent: preparing to see the patient(eg.review tests), obtaining and/or reviewing separately otained hiistory, ordering medications,tests, procedures, referring, communicating with other health specialist wound care, indepentently interpreting results, counseling the patient and care coordination
[2024-11-16 10:08] LABS: Hemoglobin A1C 6.1 % (<5.7)
[2024-11-16] MEDS: Potassium Chloride 20 MEQ TABCR 40 MEQ PO (10:12)
--- NOTE | 2024-11-16 10:30 | PTTR_ITS ---
PT Notes Visit Reasons: Hypoxic Respiratory Failure Inpatient Physical Therapy Treatment Note [facility] Date: 11/16/2024 PRECAUTIONS: Activity as tolerated. Low endurance, needs frequent rests. SUBJECTIVE: [place] so much relaxed after her shower and wanted to rest but was willing to do the longest walk she could do this morning. Emphasized that she would come back here just for the food and the shower, sad about how she only gets showered at [facility] once a week. Patient complained of shortness of breath after covering distance from her chair to the the hallway in front of room 211 (about 50 feet) before needing to stop and sit down. She added that at the [facility] she is able to walk the whole C-wing hallway (about 150 feet) with staff and wheelchair follow. She felt still more out of breath compared to before this admission. OBJECTIVE: Seated on chair, IV through L UE. ? Pain: None repotred GAIT: Facilitated safe and correct performance of level surface ambulation covering a distance of 50 feet + 10 steps using use front wheeled walker with stand by assist. Denied headache, chest pain, and lightheadedness throughout activity. Minimal verbal cueing provided for AD management, directional changes, and po sture. Minimal shortness of breath reported which resolved with activity cessation and rest. ASSESSMENT:? Patient demonstrates increasing activity tolerance and mobility independence but will continue to require sub-acute rehab to progress ambulation distance, endurance, B LE strength as well as balance to reduce fall risk at SNF. Walking distance mostly limited by shortness of breath and fatigue. PLAN: Continue with sub acute functional mobility, strength, and balance progression to achive sarah rehab potential that will redceu fall risk and minimize re-hospi talization. DISCHARGE RECOMMENDATION: Return to SNF with cntinued sub-acute rehab TREATMENT CODE/TIME: 17686 x 23 mnutes for 2 units (10:05-10:28).
[2024-11-16 11:24] VITALS: BP 117/68; PULSE 68; RESP 16; TEMP 36.4; O2SAT 91
== END 2024-11-16 13:08 | disposition skilled nursing facility (03) | DRG 190 ==
LOC: ER 11:49 → MS 13:23
PROVIDERS: Nurse Practitioner Acute Care; Admitting Provider Family Medicine; Emergency Provider Emergency Medicine; Visit Provider Family Medicine
DX: J44.1 Chronic obstructive pulmonary disease with (acute) exacerbation (principal); J96.01 Acute respiratory failure with hypoxia; I50.42 Chronic combined systolic (congestive) and diastolic (congestive) heart failure; I11.0 Hypertensive heart disease with heart failure; F01.A0 Vascular dementia, mild, without behavioral disturbance, psychotic disturbance, mood disturbance, and anxiety; Z66 Do not resuscitate; E78.5 Hyperlipidemia, unspecified; E53.8 Deficiency of other specified B group vitamins; F43.12 Post-traumatic stress disorder, chronic; K21.9 Gastro-esophageal reflux disease without esophagitis; I48.91 Unspecified atrial fibrillation; I25.10 Atherosclerotic heart disease of native coronary artery without angina pectoris; R05.9 Cough, unspecified; Z96.643 Presence of artificial hip joint, bilateral; D72.829 Elevated white blood cell count, unspecified; M79.7 Fibromyalgia; K58.0 Irritable bowel syndrome with diarrhea; R32 Unspecified urinary incontinence; G47.00 Insomnia, unspecified; Z87.891 Personal history of nicotine dependence; Z79.899 Other long term (current) drug therapy
CPT/HCPCS: 00123; 36415; 80048; 82805; 87040; 87637; 87641; 93005; 94640; 94761; 96361; 96365; 96366; 96367; 96368; 96372; 97161; 97530; 99285; J1650; 71045; 81003; 83036; 83605; 83880; 85025; 93010; 94664; 94667; 94668; 94760; 99223; 99233; 99239; G0378; J0692; J3370; J7512; J7620; J8540

== ENCOUNTER 2024-12-05 18:26 | Outpatient (REF) | payer MEDICARE, MEDICAID, SELFPAY ==
[2024-12-05 19:05] LABS: Abs Immature Grans 0.05 10^3/uL (0.0-0.06); Absolute Basophil Count 0.06 10^3/uL (0.0-0.2); Absolute Eosinophil Count 0.23 10^3/uL (0.0-0.7); Absolute Neutrophil Count 8.66 10^3/uL (1.2-6.7); Basophils % 0.5 %; Eosinophils % 1.9 %; HCT 39.4 % (36.0-46.0); HGB 11.8 g/dL (11.2-15.7); Immature Grans % 0.4 %; Lymphocytes % 19.3 %; MCHC 29.9 % (32.0-36.0); MCV 90 fL (80-95); Monocytes % 6.6 %; Neutrophils % 71.3 %; Platelet Count 331 10^3/uL (130-400); RBC 4.37 10^6/uL (3.93-5.22); RDW 16.2 % (11.7-14.6); RDW-SD 54.1 fL; WBC 12.15 10^3/uL (4.4-10.8)
[2024-12-05 19:09] LABS: Absolute Lymphocyte Count 2.34 10^3/uL (1.2-3.4)
[2024-12-05 19:23] LABS: Anion Gap 8.9 mmol/L (3-11); BUN 6 mg/dL (7-18); CO2 25.1 mmol/L (21.0-32.0); CREATININE 0.8 mg/dL (0.55-1.02); Chloride 104 mmol/L (98-107); Estimated GFR 73.52 (mL/min/1.73m2); Glucose 95 mg/dL (74-106); NT-proBNP 175 pg/mL (<300); Potassium 4.2 mmol/L (3.5-5.1); Sodium 138 mmol/L (136-145)
== END 2024-12-05 18:27 | disposition home or self-care (01) ==
LOC: LBN 18:26
PROVIDERS: Visit Provider Nurse Practitioner Gerontology
DX: I50.42 Chronic combined systolic (congestive) and diastolic (congestive) heart failure (principal); I11.0 Hypertensive heart disease with heart failure; E87.6 Hypokalemia; J44.9 Chronic obstructive pulmonary disease, unspecified
CPT/HCPCS: 80048; 83880; 85025

== ENCOUNTER 2025-04-03 18:03 | Outpatient (REF) | payer MEDICARE, MEDICAID, SELFPAY ==
[2025-04-03 18:11] LABS: Abs Immature Grans 0.04 10^3/uL (0.0-0.06); HCT 38.6 % (36.0-46.0); HGB 11.6 g/dL (11.2-15.7); Immature Grans % 0.4 %; MCH 26.0 pg (27.0-33.0); MCHC 30.1 % (32.0-36.0); MCV 86 fL (80-95); MPV 9.9 fL (8.0-11.0); Platelet Count 328 10^3/uL (130-400); RBC 4.47 10^6/uL (3.93-5.22); RDW 16.3 % (11.7-14.6); RDW-SD 51.7 fL; WBC 9.81 10^3/uL (4.4-10.8)
[2025-04-03 18:53] LABS: Hemoglobin A1C 5.9 % (<5.7)
[2025-04-03 19:03] LABS: ALT 16 U/L (14-59); AST 13 U/L (15-37); Albumin 3.2 g/dL (3.4-5.0); Alkaline Phosphatase 144 U/L (46-116); Anion Gap 5.7 mmol/L (3-11); BUN 11 mg/dL (7-18); Bilirubin, Total 0.2 mg/dL (0.2-1.0); CO2 29.3 mmol/L (21.0-32.0); Calcium 8.6 mg/dL (8.5-10.1); Chloride 104 mmol/L (98-107); Estimated GFR 89.56 (mL/min/1.73m2); Glucose 79 mg/dL (74-106); Potassium 4.3 mmol/L (3.5-5.1); Sodium 139 mmol/L (136-145); Total Protein 6.2 g/dL (6.4-8.2); Vitamin B12 733 pg/mL (193-986)
== END 2025-04-03 18:04 | disposition home or self-care (01) ==
LOC: LBN 18:03
PROVIDERS: Visit Provider Nurse Practitioner Gerontology
DX: R73.03 Prediabetes (principal); D63.1 Anemia in chronic kidney disease
CPT/HCPCS: 80053; 82607; 83036; 85025

== ENCOUNTER 2025-05-22 11:51 | Emergency (ER) | payer MEDICARE, MEDICAID, SELFPAY ==
[2025-05-22] VITALS (26 sets, daily range): BP systolic 111–128; BP diastolic 58–77; PULSE 56–78; RESP 15–29; TEMP 36.8; O2SAT 89–94
--- NOTE | 2025-05-22 11:45 | DI.CT_ITS ---
Exam(s) CT HEAD - STROKE PROTOCOL EXAM: CT HEAD - STROKE PROTOCOL CLINICAL HISTORY: Aphasia, Resolving, LKW [id number]. TECHNIQUE: Imaging Protocol: Axial computed tomography images with coronal and sagittal reformatted images were created and reviewed COMPARISON: CT CT HEAD WO from 07/11/2021 FINDINGS: Ventricles and Extra axial spaces: Normal in size and morphology for the patient's age. Unchanged from prior exam. Hemorrhage: None. Cerebral parenchyma: No evidence of acute infarct or mass. Prominent generalized atrophy. Severe patchy areas of decreased attenuation throughout the white matter, greater of the frontal lobes. Midline shift: None. Brainstem/Cerebellum: Mild atrophy. Areas of low attenuation in the dipak likely old lacunar infarct. Bones: No skull or facial fractures. Visualized Paranasal sinuses:Clear. Mastoids: Clear. Soft Tissues: Unremarkable. ORBITS: Unremarkable. PITUITARY: Not enlarged. IMPRESSION: Prominent atrophy and severe white matter changes. No acute infarct or hemorrhage is identified. RADIATION DOSE DELIVERED: 910.75mGy.cm Total DLP DATA REPOSITORY: All CT scans at this facility are submitted to the National Radiology Data Registry (NRDR) Dose Index Registry (DIR) with the [employer] ([employer]). RADIATION OPTIMIZATION: All CT scans at this facility use at least one of these dose optimization techniques: automated exposure control; mA and/or kV adjustment per patient size (includes targeted exams where dose is matched to clinical indication); or iterative reconstruction.
--- NOTE | 2025-05-22 11:46 | RT.EKG_ITS ---
APPROVED REPORT Exam: Resting ECG Reason for Exam: ? CVA Patient Location: E HR:64 bpm ECG Measurements Heart Rate 64 AXIS NC 177 P 7 QRSd 96 QRS 15 QT 403 T 11 QTc 417 Conclusion Sinus rhythm...normal P axis, V-rate 60- 99
--- NOTE | 2025-05-22 12:01 | W.ED.GENAD ---
Discharge Plan Discharge Details Chief Complaint: CVA/TIA Primary Care Provider: Unknown,Unknown ED Provider: Arianne Iglesias Home Meds and New Rx's Prescriptions: No Action cholestyramine (with sugar) 4 gram powder See Rx Instructions PO .COMPLEX Rx Instructions: orally Prior to dinner disolved in 4-8oz H2O; losartan 25 mg tablet 25 mg PO DAILY guaifenesin [Tussin] 100 mg/5 mL liquid 200 mg PO Q4H PRN promethazine 25 mg tablet 25 mg PO BID PRN promethazine 50 mg suppository See Rx Instructions CO .COMPLEX PRN (Reason: nausea and vomiting) Rx Instructions: rectally Q4-6 hours PRN; Incruse Ellipta 62.5 mcg/actuation blister with device 1 inh inhalation DAILY nitroglycerin [Nitrostat] 0.4 MG tablet, sublingual 0.4 mg Buccal Q5 MIN PRN X3 PRN furosemide [Lasix] 20 MG tablet 20 mg PO DAILY Patient Comments: every other day vitamin B complex Tablet 1 tab PO DAILY famotidine 20 mg tablet 20 mg PO DAILY aspirin [Adult Aspirin Regimen] 81 mg tablet,delayed release (DR/EC) 81 mg PO DAILY loratadine [Allergy Relief (loratadine)] 10 mg tablet 10 mg PO DAILY fluticasone propionate 50 mcg/actuation spray,suspension 1 spray intranasal BID Rx Instructions: administer into each nostril Trelegy Ellipta 100-62.5-25 mcg blister with device 1 inh inhalation DAILY nicotrol inhaler cartridge See Rx Instructions .ROUTE .COMPLEX Rx Instructions: as directed; loperamide [Anti-Diarrheal (loperamide)] 2 mg capsule 2 mg PO .COMPLEX PRN Rx Instructions: 2 mg orally as directed PRN; gabapentin [Neurontin] 300 MG capsule 600 mg PO HS Patient Comments: 900 QHS ibuprofen 600 mg tablet 600 mg PO DAILY acetaminophen 500 mg tablet 1,000 mg PO TID Rx Instructions: scheduled for chronic pain meclizine 12.5 mg tablet 12.5 mg PO TID benzonatate 100 mg Capsule 100 mg PO TID Qty: 14 0RF guaifenesin [Mucus Relief ER] 600 mg Tablet Extended Release 12hr 600 mg PO BID Qty: 10 0RF prednisone 20 mg Tablet 40 mg PO DAILY Qty: 10 0RF doxycycline hyclate 100 mg capsule 100 mg PO BID Qty: 10 0RF Combivent Respimat 20-100 mcg/actuation mist 1 puff inhalation QID Qty: 4 0RF Rx Instructions: space evenly during waking hours For 5 days then stop. amlodipine [Norvasc] 10 MG tablet 10 mg PO DAILY albuterol sulfate [Ventolin HFA] 8 GM HFA aerosol inhaler 2 puff Inhalation Q4H PRN B-12 Compliance 1,000 MCG/ML kit 1,000 mcg IM DIRECTED Patient Comments: monthly potassium chloride 10 mEq tablet extended release 10 meq PO DAILY bupropion HCl 300 mg tablet extended release 24 hr 300 mg PO DAILY metoprolol tartrate 50 mg tablet 50 mg PO BID citalopram 20 mg tablet 20 mg PO DAILY HPI General Mode of arrival: EMS. Date/Time Provider Initiated Documentation: 05/22/25 11:54. Limitations to Documentation: no limitations. Information obtained by: patient, EMS, RN notes reviewed and old records reviewed. HPI Narrative: 84 year old female presents with slurred speech which staff at the [facility] living [facility] noticed around 8:30 AM this morning. Patient reports that today is resolving and she feels fine. She has no gross focal neurodeficits. She does have a history of possible TIAs in the past per EMS staff report. Patient denies any chest pain shortness of breath headache blurry vision or any other associated symptoms. No facial droop noted on exam she does have a history of left rotator cuff problem and does have a left upper arm or difficulty raising it which she reports is chronic. No leg drop noted. Vital signs are stable upon arrival. Denies any recent falls or trauma. Does take 80 mg aspirin daily for history of patient. Denies any other blood thinners. Related Data Home Medications ?Medication ?Instructions ?Recorded ?Confirmed gabapentin 300 mg capsule 600 mg PO HS 03/09/13 05/22/25 (Neurontin) furosemide 20 mg tablet (Lasix) 20 mg PO DAILY 11/04/16 05/22/25 nitroglycerin 0.4 mg sublingual 0.4 mg buccal Q5 MIN PRN X3 PRN 11/04/16 05/22/25 tablet (Nitrostat) albuterol sulfate 90 mcg/actuation 2 puff inhalation Q4H PRN 10/26/17 05/22/25 aerosol inhaler (Ventolin HFA) amlodipine 10 mg tablet (Norvasc) 10 mg PO DAILY 10/26/17 05/22/25 cyanocobalamin (vitamin B-12) 1,000 mcg IM DIRECTED 10/26/17 05/22/25 1,000 mcg/mL injection kit (B-12 Compliance) ibuprofen 600 mg tablet 600 mg PO DAILY 07/11/21 05/22/25 aspirin 81 mg tablet,delayed 81 mg PO DAILY 11/26/22 05/22/25 release (Adult Aspirin Regimen) famotidine 20 mg tablet 20 mg PO DAILY 11/26/22 05/22/25 fluticasone fur. 100 mcg-umeclid 1 inh inhalation DAILY 11/26/22 05/22/25 62.5 mcg-vilant 25 mcg inhalat.powder (Trelegy Ellipta) fluticasone propionate 50 1 spray intranasal BID 11/26/22 05/22/25 mcg/actuation nasal spray,suspension loperamide 2 mg capsule 2 mg PO .COMPLEX PRN 11/26/22 05/22/25 (Anti-Diarrheal (loperamide)) loratadine 10 mg tablet (Allergy 10 mg PO DAILY 11/26/22 05/22/25 Relief (loratadine)) nicotrol inhaler cartridge See Rx Instructions .Route .COMPLEX 11/26/22 05/22/25 vitamin B complex 1 tab PO DAILY 11/26/22 05/22/25 Held on 05/22/25. Instructions: Pt Stopped/Never Started cholestyramine (with sugar) 4 gram See Rx Instructions PO .COMPLEX 12/16/22 05/22/25 oral powder Irritable Bowel Syndrome Held on 05/22/25. Instructions: Pt Stopped/Never Started guaifenesin 100 mg/5 mL oral 200 mg PO Q4H PRN 12/16/22 05/22/25 liquid (Tussin) losartan 25 mg tablet 25 mg PO DAILY 12/16/22 05/22/25 promethazine 25 mg tablet 25 mg PO BID PRN 12/16/22 05/22/25 Held on 05/22/25. Instructions: Pt Stopped/Never Started promethazine 50 mg rectal See Rx Instructions CO .COMPLEX 12/16/22 05/22/25 suppository PRN nausea and vomiting Held on 05/22/25. Instructions: Pt Stopped/Never Started umeclidinium 62.5 mcg/actuation 1 inh inhalation DAILY 12/16/22 05/22/25 blister powder for inhalation (Incruse Ellipta) Held on 05/22/25. Instructions: Pt Stopped/Never Started bupropion HCl 300 mg 24 hr tablet, 300 mg PO DAILY 09/30/24 05/22/25 extended release citalopram 20 mg tablet 20 mg PO DAILY 09/30/24 05/22/25 metoprolol tartrate 50 mg tablet 50 mg PO BID 09/30/24 05/22/25 potassium chloride 10 mEq 10 meq PO DAILY 09/30/24 05/22/25 tablet,extended release acetaminophen 500 mg tablet 1,000 mg PO TID 11/14/24 05/22/25 meclizine 12.5 mg tablet 12.5 mg PO TID 11/14/24 05/22/25 benzonatate 100 mg capsule 100 mg PO TID #14 caps 11/16/24 05/22/25 doxycycline hyclate 100 mg capsule 100 mg PO BID #10 caps 11/16/24 05/22/25 Held on 05/22/25. Instructions: Pt Stopped/Never Started guaifenesin 600 mg tablet, 600 mg PO BID #10 tabs 11/16/24 05/22/25 extended release 12 hr (Mucus Relief ER) Held on 05/22/25. Instructions: not on med list ipratropium 20 mcg-albuterol 100 1 puff inhalation QID #4 grams 11/16/24 05/22/25 mcg/actuation mist for inhalation (Combivent Respimat) Held on 05/22/25. Instructions: not on med list prednisone 20 mg tablet 40 mg (2 x 20 mg) PO DAILY #10 tabs 11/16/24 05/22/25 Held on 05/22/25. Instructions: not on med list Previous Rx's ?Medication ?Instructions ?Recorded benzonatate 100 mg capsule 100 mg PO TID #14 caps 11/16/24 doxycycline hyclate 100 mg capsule 100 mg PO BID #10 caps 11/16/24 Held on 05/22/25. Instructions: Pt Stopped/Never Started guaifenesin 600 mg tablet, 600 mg PO BID #10 tabs 11/16/24 extended release 12 hr (Mucus Relief ER) Held on 05/22/25. Instructions: not on med list ipratropium 20 mcg-albuterol 100 1 puff inhalation QID #4 grams 11/16/24 mcg/actuation mist for inhalation (Combivent Respimat) Held on 05/22/25. Instructions: not on med list prednisone 20 mg tablet 40 mg (2 x 20 mg) PO DAILY #10 tabs 11/16/24 Held on 05/22/25. Instructions: not on med list Allergies Allergy/AdvReac Type Severity Reaction Status Date / Time Penicillins Allergy Severe Anaphylaxsi Verified 05/22/25 12:28 s codeine Allergy Unknown Unknown Verified 05/22/25 12:28 General Stated Complaint: CVA/TIA MARY: 2 Review of Systems All systems reviewed & are unremarkable except as noted in HPI and below Constitutional Constitutional: Denies frequent falls and Denies headache(s) ENT Ears, Nose, Mouth, and Throat: Denies headache(s) Cardiovascular Cardiovascular: Denies chest pain, Denies syncope and Denies dyspnea Respiratory Respiratory: Reports cough and Denies dyspnea Gastrointestinal Gastrointestinal: Denies abdominal pain, Denies diarrhea, Denies nausea and Denies vomiting Musculoskeletal Musculoskeletal: Denies numbness and Denies tingling Neurologic Neurologic: Reports as per HPI, Reports abnormal speech, Denies syncope, Denies frequent falls, Denies headache(s), Denies localized weakness, Denies memory loss, Denies numbness, Denies sensory deficit and Denies tingling Psychiatric Psychiatric: Denies memory loss Exam Narrative Exam Narrative: Constitutional: Alert and oriented x3. Appears stated age. Normal body habitus. Head: Normocephalic, no trauma. Eyes: Pupils PERRL, Red reflex noted, EOM's intact. Eyelids symmetrical without lesions, discharge, or swelling. ENT: Bilateral TM's WNL, External ear normal to inspection, no mastoid TTP, swelling, or erythema, Nasal turbinates WNL, no nasal discharge. Normal dentition, Posterior pharynx WNL, no exudate. Chest: RRR, Normal S1, S2, distal pulses intact. Normal sinus rhythm. Resp: Lungs clear to auscultation bilaterally, no wheezes, rales, or rhonchi. Abdomen: Soft, non-distended, Normoactive bowel sounds all 4 quads. Musculoskeletal: Unable to assess gait moves 3 extremities without difficulty. Left upper extremity tender with abduction due to rotator cuff injury. Skin: No suspicious rashes or lesions. Capillary refill less than 2 sec. Neurologic: Cranial nerves II-XII intact. Alert and oriented x 3. Motor: No deficits noted. Sensory: Intact bilaterally all 4 extremities. No leg numbness bilaterally intact jet blade polisher equal, no leg drop no facial droop, does have some slurred speech. Does appear to be resolving upon arrival. Hematologic/Lymphatic: No ecchymosis, no lymphadenopathy. Course Vital Signs Vital signs: Vital Signs Temperature 36.8 C 05/22/25 11:58 Pulse 64 05/22/25 11:58 Respiratory Rate 16 05/22/25 11:58 Blood Pressure 128/68 05/22/25 11:58 Pulse Oximetry 94 05/22/25 11:58 Temperature 36.8 C 05/22/25 11:58 Temperature Source Oral 05/22/25 11:58 Pulse 64 05/22/25 11:58 Respiratory Rate 16 05/22/25 11:58 Respiratory Effort Normal, Non-Labored 05/22/25 11:56 Respiratory Depth Normal 05/22/25 11:56 Respiratory Pattern Normal 05/22/25 11:56 Blood Pressure 128/68 05/22/25 11:58 Blood Pressure Mean 88 05/22/25 11:58 Pulse Oximetry 94 05/22/25 11:58 Oxygen Delivery Method Room Air 05/22/25 11:58 Oxygen Flow Rate 0 05/22/25 11:58 Pain Level 0 05/22/25 11:58 Medical Decision Making 84 year old female presents with slurred speech which staff at the [facility] noticed around 8:30 AM this morning. Patient reports that today is resolving and she feels fine. She has no gross focal neurodeficits. She does have a history of possible TIAs in the past per EMS staff report. Patient denies any chest pain shortness of breath headache blurry vision or any other associated symptoms. No facial droop noted on exam she does have a history of left rotator cuff problem and does have a left upper arm or difficulty raising it which she reports is chronic. No leg drop noted. Vital signs are stable upon arrival. Denies any recent falls or trauma. Does take 80 mg aspirin daily for history of patient. Denies any other blood thinners. Workup ordered including EKG, CBC CMP PT, urinalysis, CT head stroke protocol. Initial NIH score of 2, she does have some slurring of her words. CT head without contrast per protocol shows prominent atrophy and severe white matter changes, no acute infarct or hemorrhage identified area of low-attenuation in the dipak likely related to sarcoid. Please see official report. There are some areas of decreased attenuation greater than the frontal lobes. CT image pushed to [facility] will anticipate a Teleneuro consult and possibly admission for TIA/ CVA rule out. Due to the resolving nature of this and possible previous TIA patient is not a candidate for lytics. Teleneuro consult ordered for TIA with time of last known well around 4-1/2 hours, discussed need for UA with patient she is requesting a catheter due to her mobility issues. She is able to swallow small bits of water without difficulty. CBC shows white blood cell count 11.43, neutrophils 7.40 slightly elevated sodium 138 potassium 4.1 BUN 10 creatinine 0.7 GFR 76, alk phos slightly elevated 132 initial troponin is within normal limits at a level of 5 mg/L. On patient reevaluation her speech appears to be improving. Serial 1 hour troponins are flat at 5 ng/L, 3 hr trop canceled patient has no c/o chest pain. 1506: Spoke with Dr. Green with teleneuro after his consult he episodic ataxia ataxia patient may have reported to him that the aphasia and slurred speech episodes have been ongoing for the last 4 years intermittently. She does have a history of vascular dementia. MRI brain without ordered. Also recommend loading with aspirin. 243 mg baby aspirin ordered as patient is taking the 81 mg daily. Discussed plan of care with patient and daughter who is at the bedside. Patient is hesitant but agreeable to the MRI. She states that she has had an MRI in the past however, I have no record of that. I have speaking with Dr. Green they do not have any record of her ever seen neurologist or been seen by the neurology team at [facility]. Care is to be handed off to oncoming provider , Selma Watson MRI, reevaluation and disposition. Medical Records Medical records reviewed: Yes I reviewed the patient's medical records. Imaging Data Radiologic Study: Imaging: CT Scan Radiologist's impression: CLINICAL HISTORY: Aphasia, Resolving, [id number]. TECHNIQUE: Imaging Protocol: Axial computed tomography images with coronal and sagittal reformatted images were created and reviewed COMPARISON: CT CT HEAD WO from 07/11/2021 FINDINGS: Ventricles and Extra axial spaces: Normal in size and morphology for the patient's age. Unchanged from prior exam. Hemorrhage: None. Cerebral parenchyma: No evidence of acute infarct or mass. Prominent generalized atrophy. Severe patchy areas of decreased attenuation throughout the white matter, greater of the frontal lobes. Midline shift: None. Brainstem/Cerebellum: Mild atrophy. Areas of low attenuation in the dipak likely old lacunar infarct. Bones: No skull or facial fractures. Visualized Paranasal sinuses:Clear. Mastoids: Clear. Soft Tissues: Unremarkable. ORBITS: Unremarkable. PITUITARY: Not enlarged. IMPRESSION: Prominent atrophy and severe white matter changes. No acute infarct or hemorrhage is identified Lab Data Lab results reviewed: Yes I reviewed the patient's lab results. Labs: Laboratory Tests Range/Units 05/22/25 05/22/25 05/22/25 12:00 13:20 14:49 WBC (4.4-10.8) 10^3/uL 11.43 H RBC (3.93-5.22) 10^6/uL 4.54 Hgb (11.2-15.7) g/dL 11.9 Hct (36.0-46.0) % 38.2 MCV (80-95) fL 84 MCH (27.0-33.0) pg 26.2 L MCHC (32.0-36.0) % 31.2 L RDW (11.7-14.6) % 16.1 H Plt Count (130-400) 10^3/uL 338 MPV (8.0-11.0) fL 9.5 Immature Gran % % 0.3 Neutrophils % % 64.7 Lymphocytes % % 25.5 Monocytes % % 6.3 Eosinophils % % 2.5 Basophils % % 0.7 Nucleated RBC % (0.0-0.3) % 0.0 Absolute Neutrophils (1.2-6.7) 10^3/uL 7.40 H Absolute Lymphocytes (1.2-3.4) 10^3/uL 2.91 Absolute Monocytes (0.1-0.8) 10^3/uL 0.72 Absolute Eosinophils (0.0-0.7) 10^3/uL 0.29 Absolute Basophils (0.0-0.2) 10^3/uL 0.08 PT (9.1-11.1) sec 9.9 INR (0.9-1.1) 1.0 Sodium (136-145) mmol/L 138 Potassium (3.5-5.1) mmol/L 4.1 Chloride (98-107) mmol/L 104 Carbon Dioxide (21.0-32.0) mmol/L 28.0 Anion Gap (3-11) mmol/L 6.0 BUN (7-18) mg/dL 10 Creatinine (0.55-1.02) mg/dL 0.7 Est GFR (CKD-EPI 2020) (mL/min/1.73m2) 86.30 Glucose (74-106) mg/dL 98 Calcium (8.5-10.1) mg/dL 8.9 Magnesium (1.8-2.4) mg/dL 2.0 Total Bilirubin (0.2-1.0) mg/dL 0.2 AST (15-37) U/L 15 ALT (14-59) U/L 17 Alkaline Phosphatase (46-116) U/L 132 H Troponin I (<or=51) ng/L 5 5 Cancelled Total Protein (6.4-8.2) g/dL 6.8 Albumin (3.4-5.0) g/dL 3.3 L Quality:SDOH Health Related Social Needs: Health related social needs lonely/isolated PFSH All Active Problems COPD exacerbation (Acute) Community acquired pneumonia (Acute) Respiratory failure (Acute) Former cigarette smoker (Acute) Urinary incontinence (Acute) Polyosteoarthritis (Acute) Unspecified macular degeneration (Acute) Encounter for immunization (Acute) Allergic rhinitis due to animal (cat) (dog) hair and dander (Acute) Localized edema (Acute) Cough (Acute) Shortness of breath (Acute) Vascular dementia without behavioral disturbance (Acute) Cognitive communication deficit (Acute) Chronic combined systolic and diastolic heart failure (Acute) Irritable bowel syndrome with diarrhea (Acute) Major depressive disorder with single episode (Acute) Sprain of left upper arm (Acute) Head injury (Acute) Laceration of scalp (Acute) Removal of crystal (Acute) ASHD (arteriosclerotic heart disease) (Chronic) Lone atrial fibrillation (Acute) Atrial fibrillation (Chronic) NSTEMI (non-ST elevated myocardial infarction) (Acute) Coronary artery disease (Chronic) Dyslipidemia (Chronic) Hypertension (Chronic) Tobacco abuse (Chronic) Frequent headaches (Chronic) Colon polyps (Chronic) GERD (gastroesophageal reflux disease) (Chronic) Fibrocystic breast changes (Chronic) Osteoarthritis (Chronic) Depression (Chronic) Memory loss (Chronic) Insomnia (Chronic) PTSD (post-traumatic stress disorder) (Chronic) Seasonal allergies (Chronic) Chronic pain (Chronic) Fibromyalgia (Chronic) Vitamin B 12 deficiency (Chronic) COPD (chronic obstructive pulmonary disease) (Chronic) Medical History Pneumonia Hx of falling Bronchitis Adenocarcinoma of endometrium Other chronic pain fibromyalgia Hyperlipidemia Anxiety Benign hypertension Wrist fracture, right Surgical History Replacement of total knee joint (02/07/08) right Total replacement of hip (09/11/08) left hip, right hip, right ANGELINA revision femoral stem with open reduction and internal fixation of periprosthetic fracture with cerclage cables. Total replacement of hip (09/04/08) left hip, right hip, right ANGELINA revision femoral stem with open reduction and internal fixation of periprosthetic fracture with cerclage cables. Total replacement of hip (03/26/01) left hip, right hip, right ANGELINA revision femoral stem with open reduction and internal fixation of periprosthetic fracture with cerclage cables. Hyseterectomy, Total Laparoscopic w/ BSO Social History Smoking/Tobacco Use Status: Former Tobacco Use Quit Date: 05/01/16 Smoking risk assessment performed?: Yes Alcohol Intake: never Drug use: Never Substance use type: does not use Housing: pen[facility]entiary Do you feel safe at home: Yes Do you feel safe in your relationship?: Yes Additional Social history: from [place], moved into [facility] assisted living in 2021
[2025-05-22 12:14] LABS: Abs Immature Grans 0.04 10^3/uL (0.0-0.06); HCT 38.2 % (36.0-46.0); HGB 11.9 g/dL (11.2-15.7); Immature Grans % 0.3 %; MCH 26.2 pg (27.0-33.0); MCHC 31.2 % (32.0-36.0); MCV 84 fL (80-95); MPV 9.5 fL (8.0-11.0); Platelet Count 338 10^3/uL (130-400); RBC 4.54 10^6/uL (3.93-5.22); RDW 16.1 % (11.7-14.6); RDW-SD 50.0 fL; WBC 11.43 10^3/uL (4.4-10.8)
[2025-05-22 12:24] LABS: INR 1.0 (0.9-1.1); Prothrombin Time 9.9 sec (9.1-11.1)
[2025-05-22 12:49] LABS: ALT 17 U/L (14-59); AST 15 U/L (15-37); Albumin 3.3 g/dL (3.4-5.0); Alkaline Phosphatase 132 U/L (46-116); Anion Gap 6.0 mmol/L (3-11); BUN 10 mg/dL (7-18); Bilirubin, Total 0.2 mg/dL (0.2-1.0); CO2 28.0 mmol/L (21.0-32.0); Calcium 8.9 mg/dL (8.5-10.1); Chloride 104 mmol/L (98-107); Estimated GFR 86.30 (mL/min/1.73m2); Glucose 98 mg/dL (74-106); Magnesium 2.0 mg/dL (1.8-2.4); Potassium 4.1 mmol/L (3.5-5.1); Sodium 138 mmol/L (136-145); Total Protein 6.8 g/dL (6.4-8.2); Troponin I 5 ng/L (<or=51)
[2025-05-22 13:52] LABS: Troponin I 5 ng/L (<or=51)
--- NOTE | 2025-05-22 15:00 | DI.MRI_ITS ---
Exam(s) MR BRAIN WO EXAM: MR BRAIN WO CLINICAL HISTORY: Slurred speech, R/O CVA TECHNIQUE: Multiplanar multisequence MRI of the brain was performed. COMPARISON: MR MRI - BRAIN WO CONTRAST from 01/18/[address] HEAD - STROKE PROTOCOL from 05/22/2025 FINDINGS: The examination is limited due to patient motion artifact. VENTRICLES AND EXTRA AXIAL SPACES: Normal in size and morphology for the patient's age. MIDLINE SHIFT: None. CEREBRAL PARENCHYMA: No focus of restricted diffusion to suggest acute infarct. No space-occupying lesion identified. There are significant areas of hyperintense signal seen in the white matter on the FLAIR and T2 weighted images consistent with chronic microvascular ischemic disease. HEMORRHAGE: None. BRAINSTEM/CEREBELLUM: Normal. CALVARIUM: Normal. VISUALIZED PARANASAL SINUSES/MASTOIDS:Clear. [place]: Normal flow void. PITUITARY GLAND: Unremarkable. OTHER FINDINGS: None. IMPRESSION: 1. The examination is limited due to patient motion artifact. 2. Cerebral atrophy and chronic microvascular ischemic disease are present. 3. There is no evidence of an acute infarct. DATA REPOSITORY:
[2025-05-22] MEDS: Aspirin 81 MG CHEW 243 MG CH (15:54)
[2025-05-22] MEDS: LORazepam 20 MG/10 ML VIAL IVP (16:09)
[2025-05-22 16:19] LABS: Glucose Negative (Negative)
--- NOTE | 2025-05-23 08:04 | NUR.NOTE ---
Access chart to determine the disposition of patient for Teleneuro report. Nursing Note:
--- NOTE | 2025-05-23 08:16 | NUR.NOTE ---
Access chart to reconcile EKG's in [facility] with the EKG orders. Nursing Note:
== END 2025-05-22 17:59 | disposition home or self-care (01) ==
PROVIDERS: Registered Nurse Emergency; Emergency Provider Physician Assistant
DX: R47.1 Dysarthria and anarthria (principal); R26.9 Unspecified abnormalities of gait and mobility; I67.82 Cerebral ischemia; I48.91 Unspecified atrial fibrillation; I10 Essential (primary) hypertension; Z79.82 Long term (current) use of aspirin; Z87.891 Personal history of nicotine dependence
CPT/HCPCS: 36415; 80053; 93005; 96374; 99284; 70450; 70551; 81003; 83735; 84484; 85025; 85610; 93010; J2060

== ENCOUNTER 2025-06-01 04:23 | Outpatient (CLI) | payer MEDICARE, MEDICAID, SELFPAY ==
--- NOTE | 2025-06-01 | DI.RAD_ITS ---
Exam(s) XR KNEE LT 3V AP,LAT,CHANDANA EXAM: XR KNEE LT 3V AP,LAT,CHANDANA CLINICAL HISTORY: PAIN S/P FALL. TECHNIQUE: 2D digital imaging was performed. Three views. COMPARISON: CR RIGHT KNEE LIMITED 1 OR 2 VIEW from 12/21/2013 FINDINGS: Exam is limited by overlying densities on the PA view. BONES: No acute fracture is present. No bony destructive lesion is seen. JOINTS: There is moderate narrowing of the of both medial and lateral femoral tibial joint spaces. There is minimal periarticular spurring. The knee is normally aligned. No joint effusion is seen. SOFT TISSUE: Normal. IMPRESSION: Degenerative changes. No acute abnormality. DATA REPOSITORY: RADIATION DOSE DELIVERED:
== END 2025-06-01 04:43 ==
LOC: DI 04:23
PROVIDERS: Visit Provider Nurse Practitioner Gerontology
DX: M79.672 Pain in left foot (principal)
CPT/HCPCS: 73562

== ENCOUNTER 2025-06-08 04:27 | Outpatient (CLI) | payer MEDICARE, MEDICAID, SELFPAY ==
--- NOTE | 2025-06-08 | DI.RAD_ITS ---
Exam(s) XR HIP PELVIS ADULT BL EXAM: XR HIP PELVIS ADULT BL CLINICAL HISTORY: S/P FALL,LT HIP AND FEMORAL PAIN,H/O RT HIP REPLACEMENT AND HARDWARE. TECHNIQUE: 2D digital imaging was performed. COMPARISON: CR PELVIS AP from 09/04/2008 CR PELVIS AP from 10/03/2011 CR RIGHT HIP COMPLETE from 10/03/2011 FINDINGS: 3 views There are bilateral hip prostheses again noted. Right hip prostheses and circumferential wires appear intact/unchanged from 2012. There are no right ruben pelvic fractures. On the left side there is a fracture now evident at the level the lesser trochanter. This was not evident on the prior images. No obvious loosening of the femoral stem at this time. IMPRESSION: Bilateral hip prostheses. There is a fracture of the lesser trochanter of the left hip which was not evident on previous images of 2008 No new right hip findings. DATA REPOSITORY: RADIATION DOSE DELIVERED:
== END 2025-06-08 04:47 ==
PROVIDERS: PCP Nurse Practitioner Gerontology; Visit Provider Nurse Practitioner Gerontology
DX: Z96.643 Presence of artificial hip joint, bilateral (principal)
CPT/HCPCS: 73521

== ENCOUNTER 2025-06-09 09:54 | Emergency (ER) | payer MEDICARE, MEDICAID, SELFPAY ==
[2025-06-09 10:04] VITALS: BP 154/86; PULSE 69; RESP 18; TEMP 36.6; O2SAT 92
--- NOTE | 2025-06-09 10:10 | W.ED.GENAD ---
Discharge Plan Disposition Patient Disposition: [facility](SNF) Condition: Stable Discharge Details Clinical Impression: Closed fracture of lesser trochanter of left femur Primary Care Provider: Naye Zaragoza ED Provider: Partha Kamara Gardiner Meds and New Rx's Prescriptions: Continued losartan 25 mg tablet 25 mg PO DAILY nitroglycerin [Nitrostat] 0.4 MG tablet, sublingual 0.4 mg Buccal Q5 MIN PRN X3 PRN furosemide [Lasix] 20 MG tablet 20 mg PO DAILY Patient Comments: every other day aspirin [Adult Aspirin Regimen] 81 mg tablet,delayed release (DR/EC) 81 mg PO DAILY loratadine [Allergy Relief (loratadine)] 10 mg tablet 10 mg PO DAILY Trelegy Ellipta 100-62.5-25 mcg blister with device 1 inh inhalation DAILY nicotrol inhaler cartridge See Rx Instructions .ROUTE .COMPLEX Rx Instructions: as directed; loperamide [Anti-Diarrheal (loperamide)] 2 mg capsule 2 mg PO .COMPLEX PRN Rx Instructions: 2 mg orally as directed PRN; gabapentin [Neurontin] 300 MG capsule 600 mg PO HS Patient Comments: 900 QHS ibuprofen 600 mg tablet 600 mg PO DAILY acetaminophen 500 mg tablet 1,000 mg PO TID Rx Instructions: scheduled for chronic pain meclizine 12.5 mg tablet 12.5 mg PO TID doxycycline hyclate 100 mg capsule 100 mg PO BID Qty: 10 0RF Eliquis 2.5 mg tablet 2.5 mg PO BID acidophilus-pectin, citrus [Probiotic Acidophilus-Pectin] 100 million cell-10 mg capsule 1 cap PO BID amlodipine [Norvasc] 10 MG tablet 10 mg PO DAILY albuterol sulfate [Ventolin HFA] 8 GM HFA aerosol inhaler 2 puff Inhalation Q4H PRN B-12 Compliance 1,000 MCG/ML kit 1,000 mcg IM DIRECTED Patient Comments: monthly potassium chloride 10 mEq tablet extended release 10 meq PO DAILY bupropion HCl 300 mg tablet extended release 24 hr 300 mg PO DAILY metoprolol tartrate 50 mg tablet 50 mg PO BID citalopram 20 mg tablet 20 mg PO DAILY Discharge Instructions Instructions: Hip Pain ED Additional Instructions: The plan is to treat this fracture nonoperatively. Recommend weightbearing as tolerated with your assistive devices. You typically use a walker at baseline and had been using the steady lift since the fall. Recommend warm moist compresses. Your provider at the [facility] could consider methocarbamol for discomfort; however, at this time you appear quite comfortable. Follow-up with Dr. Whittington in 4 weeks, I have put you on the orthopedic list to help expedite this follow-up. Please watch for new or worsening symptoms and return to the ER for any concerns. Referrals: Mundo Whittington MD [ [facility]FF PHYSICIAN, Orthopaedic Surgical] HPI General Mode of arrival: EMS. Date/Time Provider Initiated Documentation: 06/09/25 09:57. Limitations to Documentation: no limitations. Information obtained by: patient and EMS. History of Present Illness 84 year old F presents to the emergency department with the chief complaint of Fall, hip injury, described as moderate, with intensity rated at 4. Quality is described as aching, and is localized to the left and lower extremity. Patient reports no radiation. Patient started experiencing this week(s) (2) and it has been constant. Immobilization improves symptom(s), Movement worsens symptoms . Patient notes no other symptoms.. Patient did receive the following treatments prior to arrival, none Related Data Home Medications ?Medication ?Instructions ?Recorded ?Confirmed gabapentin 300 mg capsule 600 mg PO HS 03/09/13 06/09/25 (Neurontin) furosemide 20 mg tablet (Lasix) 20 mg PO DAILY 11/04/16 06/09/25 nitroglycerin 0.4 mg sublingual 0.4 mg buccal Q5 MIN PRN X3 PRN 11/04/16 06/09/25 tablet (Nitrostat) albuterol sulfate 90 mcg/actuation 2 puff inhalation Q4H PRN 10/26/17 06/09/25 aerosol inhaler (Ventolin HFA) amlodipine 10 mg tablet (Norvasc) 10 mg PO DAILY 10/26/17 06/09/25 cyanocobalamin (vitamin B-12) 1,000 mcg IM DIRECTED 10/26/17 06/09/25 1,000 mcg/mL injection kit (B-12 Compliance) ibuprofen 600 mg tablet 600 mg PO DAILY 07/11/21 06/09/25 aspirin 81 mg tablet,delayed 81 mg PO DAILY 11/26/22 06/09/25 release (Adult Aspirin Regimen) fluticasone fur. 100 mcg-umeclid 1 inh inhalation DAILY 11/26/22 06/09/25 62.5 mcg-vilant 25 mcg inhalat.powder (Trelegy Ellipta) loperamide 2 mg capsule 2 mg PO .COMPLEX PRN 11/26/22 06/09/25 (Anti-Diarrheal (loperamide)) loratadine 10 mg tablet (Allergy 10 mg PO DAILY 11/26/22 06/09/25 Relief (loratadine)) nicotrol inhaler cartridge See Rx Instructions .Route .COMPLEX 11/26/22 06/09/25 losartan 25 mg tablet 25 mg PO DAILY 12/16/22 06/09/25 bupropion HCl 300 mg 24 hr tablet, 300 mg PO DAILY 09/30/24 06/09/25 extended release citalopram 20 mg tablet 20 mg PO DAILY 09/30/24 06/09/25 metoprolol tartrate 50 mg tablet 50 mg PO BID 09/30/24 06/09/25 potassium chloride 10 mEq 10 meq PO DAILY 09/30/24 06/09/25 tablet,extended release acetaminophen 500 mg tablet 1,000 mg PO TID 11/14/24 06/09/25 meclizine 12.5 mg tablet 12.5 mg PO TID 11/14/24 06/09/25 doxycycline hyclate 100 mg capsule 100 mg PO BID #10 caps 11/16/24 06/09/25 acidophilus 100 million 1 cap PO BID 06/09/25 06/09/25 cell-pectin, citrus 10 mg capsule (Probiotic Acidophilus-Pectin) apixaban 2.5 mg tablet (Eliquis) 2.5 mg PO BID 06/09/25 06/09/25 Previous Rx's ?Medication ?Instructions ?Recorded doxycycline hyclate 100 mg capsule 100 mg PO BID #10 caps 11/16/24 Allergies Allergy/AdvReac Type Severity Reaction Status Date / Time Penicillins Allergy Severe Anaphylaxsi Verified 06/09/25 10:05 s codeine Allergy Unknown Unknown Verified 06/09/25 10:05 General Stated Complaint: Orthopedic MARY: 3 Review of Systems Constitutional Constitutional: Denies headache(s) and Reports weakness (generalized) Eyes Eyes: Denies change in vision ENT Ears, Nose, Mouth, and Throat: Denies headache(s) and Denies neck pain Cardiovascular Cardiovascular: Denies chest pain and Denies dyspnea Respiratory Respiratory: Denies dyspnea Gastrointestinal Gastrointestinal: Denies abdominal pain, Denies nausea and Denies vomiting Musculoskeletal Musculoskeletal: Denies neck pain Integumentary/Breasts Skin/Breast: Denies rash Neurologic Neurologic: Denies headache(s) and Reports weakness (generalized) Hematologic/Lymphatic Hematologic/Lymphatic: Reports easy bleeding and Reports easy bruising Exam Const General: cooperative, healthy appearing, comfortable and no acute distress Orientation: alert and awake [facility] Head: normal to inspection, normocephalic and atraumatic Mouth: moist mucous membranes Eyes Conjunctivae: conjunctivae normal Neck Neck: normal visual inspection, full ROM, trachea midline and supple Resp Effort & Inspection: normal respiratory effort and able to speak in complete sentences Auscultation: clear to auscultation bilaterally Cardio Rate: regular rate Rhythm: regular rhythm GI Palpation: soft, not firm, no guarding and nontender Back/Spine/Pelvis Back: no CVA tenderness and No back tenderness Skin General skin exam: no rashes or lesions noted Other: Ecchymosis posterior medial thigh left thigh Neuro General: patient alert, patient awake, moves all extremities and no focal motor deficits Cognition: normal cognition Speech: speech normal Gait: other (Not tested) Sensory Exam: no sensory deficits noted Extrem General: capillary refill normal Other: Ecchymosis about the left thigh as above. Skin is intact. Diffuse mild left hip discomfort. No obvious shortening or rotation of the leg. Unable to engage in straight leg raise. Demonstrates limited nonpainful left knee range of motion. Left knee is none tender. Psych Appearance: grossly normal Mental Status: mental status grossly normal Course Vital Signs Vital signs: Vital Signs Temperature 36.6 C 06/09/25 10:04 Pulse 69 06/09/25 10:04 Respiratory Rate 18 06/09/25 10:04 Blood Pressure 154/86 H 06/09/25 10:04 Pulse Oximetry 92 06/09/25 10:04 Temperature 36.6 C 06/09/25 10:04 Temperature Source Oral 06/09/25 10:04 Pulse 69 06/09/25 10:04 Respiratory Rate 18 06/09/25 10:04 Blood Pressure 154/86 H 06/09/25 10:04 Pulse Oximetry 92 06/09/25 10:04 Oxygen Delivery Method Room Air 06/09/25 10:04 Oxygen Flow Rate 0 06/09/25 10:04 Pain Level 2 06/09/25 10:04 Medical Decision Making 84-year-old female who resides at a health and rehab facility, is a DNR DNI, past medical history of TIA, COPD, heart failure, ASHD, A-fib, takes apixaban, hypertension, former tobacco use, GERD, fibromyalgia, bilateral ANGELINA presents via EMS for CT imaging of a known left hip lesser trochanter fracture. Patient describes falling almost 2 weeks ago at her health and rehab facility injuring her left leg. Typically ambulates with a walker. Has had difficulty ambulating and transferring since the fall. Outpatient x-rays obtained yesterday, fracture noted, and after discussion with Dr. Whittington today it was recommended come to the ER for CT imaging and further evaluation. Pain is minimal at rest. Denies any other injury. No recent illness. Patient states given her age, multiple comorbidities, she would like to avoid surgery if at all possible. Patient admits to claustrophobia, 0.[address] provided. CT imaging of the pelvis and left hip ordered. CT imaging of left hip and pelvis obtained, radiology report reveals an oblique periprosthetic fracture of the proximal left femur with mild displacement of the lesser trochanter fracture fragment. Case was then discussed with Dr. Whittington who personally evaluated the patient. Plan to treat this nonoperatively. May be weightbearing as tolerated with assistive devices, she typically uses a walker at baseline but has been using her steady lift since the fall. Recommend warm compresses. Consider muscle relaxer such methocarbamol for discomfort, this can be prescribed by her provider at the [facility] if necessary. Follow-up with Dr. Whittington in about 4 weeks in his office. Will arrange transportation back to the [facility]. Both patient and daughter are comfortable with this plan and have no additional questions or concerns. Standard discharge and return precautions were provided. Patient understands, is agreeable to this plan, and has no additional questions or concerns upon discharge. This documentation was generated using [employer] system, please disregard any oddities of phrase or misspellings. Medical Records Medical records reviewed: Yes I reviewed the patient's medical records. Quality:SDOH Health Related Social Needs: Health related social needs lonely/isolated PFSH All Active Problems (Updated 06/09/25 @ 13:26 by JURGEN Tena) Closed fracture of lesser trochanter of left femur (Acute) Brain TIA (Acute) Slurred speech (Acute) COPD exacerbation (Acute) Community acquired pneumonia (Acute) Respiratory failure (Acute) Former cigarette smoker (Acute) Urinary incontinence (Acute) Polyosteoarthritis (Acute) Unspecified macular degeneration (Acute) Encounter for immunization (Acute) Allergic rhinitis due to animal (cat) (dog) hair and dander (Acute) Localized edema (Acute) Cough (Acute) Shortness of breath (Acute) Vascular dementia without behavioral disturbance (Acute) Cognitive communication deficit (Acute) Chronic combined systolic and diastolic heart failure (Acute) Irritable bowel syndrome with diarrhea (Acute) Major depressive disorder with single episode (Acute) Sprain of left upper arm (Acute) Head injury (Acute) Laceration of scalp (Acute) Removal of crystal (Acute) ASHD (arteriosclerotic heart disease) (Chronic) Lone atrial fibrillation (Acute) Atrial fibrillation (Chronic) NSTEMI (non-ST elevated myocardial infarction) (Acute) Coronary artery disease (Chronic) Dyslipidemia (Chronic) Hypertension (Chronic) Tobacco abuse (Chronic) Frequent headaches (Chronic) Colon polyps (Chronic) GERD (gastroesophageal reflux disease) (Chronic) Fibrocystic breast changes (Chronic) Osteoarthritis (Chronic) Depression (Chronic) Memory loss (Chronic) Insomnia (Chronic) PTSD (post-traumatic stress disorder) (Chronic) Seasonal allergies (Chronic) Chronic pain (Chronic) Fibromyalgia (Chronic) Vitamin B 12 deficiency (Chronic) COPD (chronic obstructive pulmonary disease) (Chronic) Medical History Pneumonia Hx of falling Bronchitis Adenocarcinoma of endometrium Other chronic pain fibromyalgia Hyperlipidemia Anxiety Benign hypertension Wrist fracture, right Surgical History Replacement of total knee joint (02/07/08) right Total replacement of hip (09/11/08) left hip, right hip, right ANGELINA revision femoral stem with open reduction and internal fixation of periprosthetic fracture with cerclage cables. Total replacement of hip (09/04/08) left hip, right hip, right ANGELINA revision femoral stem with open reduction and internal fixation of periprosthetic fracture with cerclage cables. Total replacement of hip (03/26/01) left hip, right hip, right ANGELINA revision femoral stem with open reduction and internal fixation of periprosthetic fracture with cerclage cables. Hyseterectomy, Total Laparoscopic w/ BSO Social History Smoking/Tobacco Use Status: Former Tobacco Use Quit Date: 05/01/16 Smoking risk assessment performed?: Yes Alcohol Intake: never Drug use: Never Substance use type: does not use Housing: [facility]iary Do you feel safe at home: Yes Do you feel safe in your relationship?: Yes Additional Social history: from [place], moved into [facility] assisted living in 2021
--- NOTE | 2025-06-09 10:15 | DI.CT_ITS ---
Exam(s) CT PELVIC WO CT LOWER EXTREMITY LT WO EXAM: CT PELVIC WO and CT lower extremity LT WO CLINICAL HISTORY: L hip fx. TECHNIQUE: Imaging Protocol: Axial computed tomography images with coronal and sagittal reformatted images were created and reviewed. COMPARISON: CR XR HIP PELVIS ADULT BL from 06/08/2025 FINDINGS: Examination is limited by the artifact from the patient's bilateral total hip arthroplasties. Bones: There is an oblique periprosthetic fracture in the proximal left femur. There is mild displacement of the lesser trochanteric fracture fragment. The patient has bilateral total hip arthroplasties. The bones are osteopenic. Degenerative changes are seen in the lower visualized lumbar spine. The sacrum and sacroiliac joints are well maintained as is the symphysis pubis. No lytic or sclerotic lesions are identified. Soft Tissues: There is a pessary in place. There is diverticulosis seen in the sigmoid colon, but no evidence of acute diverticulitis. IMPRESSION: 1. Oblique periprosthetic fracture of the proximal left femur with mild displacement of the lesser trochanteric fracture fragment. 2. No other fracture or dislocation is identified. RADIATION DOSE DELIVERED: 423.99mGy.cm Total DLP 423.99mGy.cmTotal DLP DATA REPOSITORY: All CT scans at this facility are submitted to the National Radiology Data Registry (NRDR) Dose Index Registry (DIR) with the [employer] (ACR). RADIATION OPTIMIZATION: All CT scans at this facility use at least one of these dose optimization techniques: automated exposure control; mA and/or kV adjustment per patient size (includes targeted exams where dose is matched to clinical indication); or iterative reconstruction.
[2025-06-09] MEDS: LORazepam 0.5 MG TAB PO (10:35)
[2025-06-09 12:45] VITALS: BP 145/102; PULSE 61; RESP 18; O2SAT 94
--- NOTE | 2025-06-09 12:55 | OCONE_ITS ---
Date of service: 06/09/25 Time of Service: 12:45 History of Present Illness History of Present Illness Chief Complaint: Left Hip/Leg Pain Narrative: Danette is an 84-year-old female who resides at the [facility]. She unfortunately has issues with her balance and was falling at baseline and is a minimal ambulator. However, she does ambulate with a walker. She reports falling about a week or so ago. Outpatient x-ray was performed of her left knee which was negative. She had continued pain with weightbearing and bruising. Subsequent outpatient x-ray of the left hip was performed yesterday which showed fracture of the proximal femur and she was advised to come to the emergency department for evaluation. She does report pain with weightbearing activities. She has been able to stand on the leg altho ugh it hurts more now than it did from before the fall. She does feels better now than it was for 5 days ago. She denies numbness or tingling. No radicular symptoms. She had previous left hip replacement many years ago. Prior to this fall she had no pain in the left hip. Consults Consult date: 06/09/25 Requesting physician: Partha Kamara Consult Reason Left periprosthetic femur fracture Assessment and Plan Assessment and plan (1) Closed fracture of lesser trochanter of left femur: Status: Acute (2) Periprosthetic fracture of proximal end of femur: Status: Acute Assessment and plan: Danette is an 84-year-old female who unfortunately fell over a week ago. This has resulted in a periprosthetic fracture involving the lesser trochanter and the proximal?medial aspect of the femur on the left side. I cannot detect any signs of implant instability although there is a chance of this. There is no halo and there is no sign that there is been subsidence or motion of the stem. The stem has been in for quite some time and likely has some level of stability throughout the entirety of the stem segment and there is no distal migration of fracture. I recommended this point we continue with protected weightbearing. I will see her back in 4 weeks for repeat x-ray and evaluation. No other positioning restrictions. Review of Systems All systems reviewed & are unremarkable except as noted in HPI and below PFSH All Active Problems (Updated 06/09/25 @ 13:42 by Mundo Whittington MD) Periprosthetic fracture of proximal end of femur (Acute) Closed fracture of lesser trochanter of left femur (Acute) Brain TIA (Acute) Slurred speech (Acute) COPD exacerbation (Acute) Community acquired pneumonia (Acute) Respiratory failure (Acute) Former cigarette smoker (Acute) Urinary incontinence (Acute) Polyosteoarthritis (Acute) Unspecified macular degeneration (Acute) Encounter for immunization (Acute) Allergic rhinitis due to animal (cat) (dog) hair and dander (Acute) Localized edema (Acute) Cough (Acute) Shortness of breath (Acute) Vascular dementia without behavioral disturbance (Acute) Cognitive communication deficit (Acute) Chronic combined systolic and diastolic heart failure (Acute) Irritable bowel syndrome with diarrhea (Acute) Major depressive disorder with single episode (Acute) Sprain of left upper arm (Acute) Head injury (Acute) Laceration of scalp (Acute) Removal of crystal (Acute) ASHD (arteriosclerotic heart disease) (Chronic) Lone atrial fibrillation (Acute) Atrial fibrillation (Chronic) NSTEMI (non-ST elevated myocardial infarction) (Acute) Coronary artery disease (Chronic) Dyslipidemia (Chronic) Hypertension (Chronic) Tobacco abuse (Chronic) Frequent headaches (Chronic) Colon polyps (Chronic) GERD (gastroesophageal reflux disease) (Chronic) Fibrocystic breast changes (Chronic) Osteoarthritis (Chronic) Depression (Chronic) Memory loss (Chronic) Insomnia (Chronic) PTSD (post-traumatic stress disorder) (Chronic) Seasonal allergies (Chronic) Chronic pain (Chronic) Fibromyalgia (Chronic) Vitamin B 12 deficiency (Chronic) COPD (chronic obstructive pulmonary disease) (Chronic) Medical History Pneumonia Hx of falling Bronchitis Adenocarcinoma of endometrium Other chronic pain fibromyalgia Hyperlipidemia Anxiety Benign hypertension Wrist fracture, right Surgical History Replacement of total knee joint (02/07/08) right Total replacement of hip (09/11/08) left hip, right hip, right ANGELINA revision femoral stem with open reduction and internal fixation of periprosthetic fracture with cerclage cables. Total replacement of hip (09/04/08) left hip, right hip, right ANGELINA revision femoral stem with open reduction and internal fixation of periprosthetic fracture with cerclage cables. Total replacement of hip (03/26/01) left hip, right hip, right ANGELINA revision femoral stem with open reduction and internal fixation of periprosthetic fracture with cerclage cables. Hyseterectomy, Total Laparoscopic w/ BSO Social History Smoking/Tobacco Use Status: Former Tobacco Use Quit Date: 05/01/16 Smoking risk assessment performed?: Yes Alcohol Intake: never Drug use: Never Substance use type: does not use Housing: residential Do you feel safe at home: Yes Do you feel safe in your relationship?: Yes Additional Social history: from [place], moved into [facility] in 2021 Exam Narrative Exam Narrative: Resting in the hospital stretcher. No acute distress. Evaluation of the left leg shows normal positioning. She has no significant pain with hip internal and external rotation in supine position. There is some ecchymosis seen about the posterior medial aspect of the left thigh. There is some generalized pain to palpation about the left leg, patient reports fibromyalgia. Axial loading of the left leg does not seem to increase pain. Active flexion of the left hip is possible but does cause some pain. Passive flexion of hip causes mild discomfort although she tolerates it relatively well. Sensation intact to light touch over the femoral and sciatic nerve distributions. No pain with palpation of the knee. Results Last Vital Signs Temp 36.6 C 06/09/25 10:04 Pulse 61 06/09/25 12:45 Resp 18 06/09/25 12:45 BP 145/102 H 06/09/25 12:45 Pulse Ox 94 06/09/25 12:45 Imaging Imaging Studies: X-ray of the left hip and pelvis shows a fracture involving the proximal?medial aspect of the left femur adjacent to a hip replacement. CT scan of the left hip and pelvis shows a fracture mostly involving the lesser trochanter of the proximal?medial femur. I do not see any gross signs of loosening of the implant. The shadow of the implant is visible and does not seem to be presenting with any halo or signs of displacement of the stem itself. This appears to represent a [place] A, subtype L, periprosthetic femur fracture
== END 2025-06-09 13:31 | disposition skilled nursing facility (03) ==
PROVIDERS: Emergency Provider Physician Assistant; PCP Nurse Practitioner Gerontology
DX: S72.122A Displaced fracture of lesser trochanter of left femur, initial encounter for closed fracture (principal); M97.8XXA Periprosthetic fracture around other internal prosthetic joint, initial encounter; Z96.642 Presence of left artificial hip joint; W19.XXXA Unspecified fall, initial encounter; J44.9 Chronic obstructive pulmonary disease, unspecified; Z87.891 Personal history of nicotine dependence; I10 Essential (primary) hypertension
CPT/HCPCS: 99283; 99284; 72192; 73700

== ENCOUNTER 2025-08-10 13:30 | Inpatient (IN) | payer MEDICARE, MEDICAID, SELFPAY ==
[2025-08-10] VITALS (25 sets, daily range): BP systolic 116–169; BP diastolic 51–91; PULSE 64–91; RESP 14–31; TEMP 36.5–37.3; O2SAT 88–93
--- NOTE | 2025-08-10 13:30 | DI.RAD_ITS ---
Exam(s) XR CHEST 2V PA LATERAL EXAM: XR CHEST 2V PA LATERAL CLINICAL HISTORY: SOB, cough. TECHNIQUE: 2D digital imaging was performed. COMPARISON: CR XR PORTABLE CHEST AP from 11/14/2024 FINDINGS: 2 views: Chest leads in place. Mild cardiomegaly again noted. Scarring in the lower right lung field appears unchanged and there is scarring also evident in the mid left lung field. No new obvious confluent infiltrate. No pleural effusions. No obvious pulmonary edema. IMPRESSION: Chronic right lung scarring. Scarring also evident in the mid left lung. No pleural effusionmild cardiomegaly. No evidence of pulmonary edema. DATA REPOSITORY: RADIATION DOSE DELIVERED:
--- NOTE | 2025-08-10 13:30 | RT.EKG_ITS ---
APPROVED REPORT Exam: Resting ECG Reason for Exam: shortness of breath Patient Location: E HR:71 bpm ECG Measurements Heart Rate 71 AXIS PA 173 P 23 QRSd 99 QRS 37 QT 395 T 12 QTc 430 Conclusion Sinus rhythm, rate 71 No interval abnormalities No STEMI No significant changes from prior
[2025-08-10] MEDS: Albuterol/Ipratropium 3 ML UPD VIAL UPD ×2 (14:02→18:28)
[2025-08-10 14:13] LABS: Abs Immature Grans 0.10 10^3/uL (0.0-0.06); HCT 35.7 % (36.0-46.0); HGB 11.1 g/dL (11.2-15.7); Immature Grans % 0.5 %; MCH 26.3 pg (27.0-33.0); MCHC 31.1 % (32.0-36.0); MCV 85 fL (80-95); MPV 9.5 fL (8.0-11.0); Platelet Count 398 10^3/uL (130-400); RBC 4.22 10^6/uL (3.93-5.22); RDW 15.2 % (11.7-14.6); RDW-SD 47.1 fL; WBC 18.54 10^3/uL (4.4-10.8)
[2025-08-10 14:30] LABS: Magnesium 1.8 mg/dL (1.6-2.6)
[2025-08-10 14:31] LABS: ALT 9 U/L (10-49); AST 12 U/L (<34); Albumin 4.2 g/dL (3.2-5.0); Alkaline Phosphatase 150 U/L (46-116); Anion Gap 9.3 mmol/L (3-11); BUN 11 mg/dL (9-23); Bilirubin, Total 0.4 mg/dL (0.2-1.2); CO2 25.7 mmol/L (20.0-31.0); Calcium 8.8 mg/dL (8.3-10.6); Chloride 102 mmol/L (98-107); Glucose 142 mg/dL (74-106); Potassium 3.5 mmol/L (3.5-5.1); Sodium 137 mmol/L (136-145); Total Protein 7.3 g/dL (5.7-8.2)
[2025-08-10 14:56] LABS: Troponin I < 3 ng/L (<35)
[2025-08-10 15:08] LABS: COVID-19 PCR Negative (Negative); RSV PCR Negative (Negative)
[2025-08-10] MEDS: cefTRIAXone 1 GM/50 ML BAG IVPB (15:29)
--- NOTE | 2025-08-10 15:41 | W.ED.GENAD ---
Discharge Plan Disposition Patient Disposition: Admit to [facility] Discharge Details Clinical Impression: COPD exacerbation Primary Care Provider: Jazzy Hays ED Provider: Marium Michele Home Meds and New Rx's Prescriptions: No Action losartan 25 mg tablet 25 mg PO DAILY nitroglycerin [Nitrostat] 0.4 MG tablet, sublingual 0.4 mg Buccal Q5 MIN PRN X3 PRN furosemide [Lasix] 20 MG tablet 20 mg PO DAILY Patient Comments: every other day aspirin [Adult Aspirin Regimen] 81 mg tablet,delayed release (DR/EC) 81 mg PO DAILY loratadine [Allergy Relief (loratadine)] 10 mg tablet 10 mg PO DAILY Trelegy Ellipta 100-62.5-25 mcg blister with device 1 inh inhalation DAILY nicotrol inhaler cartridge See Rx Instructions .ROUTE .COMPLEX Rx Instructions: as directed; loperamide [Anti-Diarrheal (loperamide)] 2 mg capsule 2 mg PO .COMPLEX PRN Rx Instructions: 2 mg orally as directed PRN; gabapentin [Neurontin] 300 MG capsule 600 mg PO HS Patient Comments: 900 QHS ibuprofen 600 mg tablet 600 mg PO DAILY acetaminophen 500 mg tablet 1,000 mg PO TID Rx Instructions: scheduled for chronic pain meclizine 12.5 mg tablet 12.5 mg PO TID doxycycline hyclate 100 mg capsule 100 mg PO BID Qty: 10 0RF Eliquis 2.5 mg tablet 2.5 mg PO BID acidophilus-pectin, citrus [Probiotic Acidophilus-Pectin] 100 million cell-10 mg capsule 1 cap PO BID amlodipine [Norvasc] 10 MG tablet 10 mg PO DAILY albuterol sulfate [Ventolin HFA] 8 GM HFA aerosol inhaler 2 puff Inhalation Q4H PRN B-12 Compliance 1,000 MCG/ML kit 1,000 mcg IM DIRECTED Patient Comments: monthly potassium chloride 10 mEq tablet extended release 10 meq PO DAILY bupropion HCl 300 mg tablet extended release 24 hr 300 mg PO DAILY metoprolol tartrate 50 mg tablet 50 mg PO BID citalopram 20 mg tablet 20 mg PO DAILY HPI General Mode of arrival: EMS. Date/Time Provider Initiated Documentation: 08/10/25 13:35. Limitations to Documentation: no limitations. Information obtained by: patient, EMS and old records reviewed. HPI Narrative: This is an 84-year-old female patient with a history of COPD, not on oxygen at baseline, history of heart failure, A-fib on Eliquis, presenting for evaluation of shortness of breath. 2 days ago she developed cold symptoms, with a runny/stuffy nose, productive cough and sputum change. She reports that her sputum has been whitish, sometimes pink, she is not experiencing chest pain. She was given a duo nebulizer treatment as well as prednisone and Levaquin from the [facility], they noted her to be hypoxic into the mid 80s, placed her on 2 L of oxygen and sent her to our hospital for further evaluation. EMS did have to turn her up to 4 L that she desaturates during coughing fits or whenever she has to exert herself. The patient reports no new leg swelling, no calf tenderness, is anticoagulated and has not missed any doses. Related Data Home Medications ?Medication ?Instructions ?Recorded ?Confirmed gabapentin 300 mg capsule 600 mg PO HS 03/09/13 06/09/25 (Neurontin) furosemide 20 mg tablet (Lasix) 20 mg PO DAILY 11/04/16 06/09/25 nitroglycerin 0.4 mg sublingual 0.4 mg buccal Q5 MIN PRN X3 PRN 11/04/16 06/09/25 tablet (Nitrostat) albuterol sulfate 90 mcg/actuation 2 puff inhalation Q4H PRN 10/26/17 06/09/25 aerosol inhaler (Ventolin HFA) amlodipine 10 mg tablet (Norvasc) 10 mg PO DAILY 10/26/17 06/09/25 cyanocobalamin (vitamin B-12) 1,000 mcg IM DIRECTED 10/26/17 06/09/25 1,000 mcg/mL injection kit (B-12 Compliance) ibuprofen 600 mg tablet 600 mg PO DAILY 07/11/21 06/09/25 aspirin 81 mg tablet,delayed 81 mg PO DAILY 11/26/22 06/09/25 release (Adult Aspirin Regimen) fluticasone fur. 100 mcg-umeclid 1 inh inhalation DAILY 11/26/22 06/09/25 62.5 mcg-vilant 25 mcg inhalat.powder (Trelegy Ellipta) loperamide 2 mg capsule 2 mg PO .COMPLEX PRN 11/26/22 06/09/25 (Anti-Diarrheal (loperamide)) loratadine 10 mg tablet (Allergy 10 mg PO DAILY 11/26/22 06/09/25 Relief (loratadine)) nicotrol inhaler cartridge See Rx Instructions .Route .COMPLEX 11/26/22 06/09/25 losartan 25 mg tablet 25 mg PO DAILY 12/16/22 06/09/25 bupropion HCl 300 mg 24 hr tablet, 300 mg PO DAILY 09/30/24 06/09/25 extended release citalopram 20 mg tablet 20 mg PO DAILY 09/30/24 06/09/25 metoprolol tartrate 50 mg tablet 50 mg PO BID 09/30/24 06/09/25 potassium chloride 10 mEq 10 meq PO DAILY 09/30/24 06/09/25 tablet,extended release acetaminophen 500 mg tablet 1,000 mg PO TID 11/14/24 06/09/25 meclizine 12.5 mg tablet 12.5 mg PO TID 11/14/24 06/09/25 doxycycline hyclate 100 mg capsule 100 mg PO BID #10 caps 11/16/24 06/09/25 acidophilus 100 million 1 cap PO BID 06/09/25 06/09/25 cell-pectin, citrus 10 mg capsule (Probiotic Acidophilus-Pectin) apixaban 2.5 mg tablet (Eliquis) 2.5 mg PO BID 06/09/25 06/09/25 Previous Rx's ?Medication ?Instructions ?Recorded doxycycline hyclate 100 mg capsule 100 mg PO BID #10 caps 11/16/24 Allergies Allergy/AdvReac Type Severity Reaction Status Date / Time Penicillins Allergy Severe Anaphylaxsi Verified 06/09/25 10:05 s codeine Allergy Unknown Unknown Verified 06/09/25 10:05 General Stated Complaint: RespSymp MARY: 3 Exam Narrative Exam Narrative: Gen: Awake and alert, in no apparent distress HEENT: Non-icteric sclera Neck: Supple Lungs: No apparent respiratory distress, normal respiratory effort. Lung sounds are slightly diminished bilaterally, I do not auscultate any wheezes, rhonchi, rales CV: Appears well perfused, heart with regular rate and rhythm, strong distal pulses Abdomen: Non-distended, soft, nontender to palpation without rigidity, rebound, or guarding. MSK: Moves 4 extremities without apparent limitation in ROM. 1+ peripheral edema bilaterally, no calf tenderness Skin: Visualized skin without rashes, cyanosis. Neuro: Normal Gait, no obvious focal deficits or facial asymmetry. Speaks in full, clear sentences. Psych: Appropriate for situation. Course Vital Signs Vital signs: Vital Signs Temperature 36.6 C 08/10/25 13:35 Pulse 73 08/10/25 13:35 Respiratory Rate 20 08/10/25 13:35 Blood Pressure 116/51 L 08/10/25 13:35 Pulse Oximetry 88 L 08/10/25 13:35 Temperature 36.6 C 08/10/25 13:35 Temperature Source Temporal Artery Scan 08/10/25 13:35 Pulse 75 08/10/25 15:35 Pulse 77 08/10/25 15:35 Respiratory Rate 28 H 08/10/25 15:35 Respiratory Effort Normal 08/10/25 14:25 Blood Pressure 138/66 08/10/25 15:35 Blood Pressure Mean 92 08/10/25 15:35 Blood Pressure Position Supine 08/10/25 13:35 Pulse Oximetry 89 L 08/10/25 15:35 Oxygen Delivery Method Room Air 08/10/25 13:35 Oxygen Flow Rate 0 08/10/25 13:35 Lab/Test Results Lab/Test Results: Laboratory Tests Range/Units 08/10/25 08/10/25 08/10/25 13:44 14:00 14:41 WBC (4.4-10.8) 10^3/uL 18.54 H RBC (3.93-5.22) 10^6/uL 4.22 Hgb (11.2-15.7) g/dL 11.1 L Hct (36.0-46.0) % 35.7 L MCV (80-95) fL 85 MCH (27.0-33.0) pg 26.3 L MCHC (32.0-36.0) % 31.1 L RDW (11.7-14.6) % 15.2 H Plt Count (130-400) 10^3/uL 398 MPV (8.0-11.0) fL 9.5 Immature Gran % % 0.5 Neutrophils % % 88.3 Lymphocytes % % 8.1 Monocytes % % 2.5 Eosinophils % % 0.2 Basophils % % 0.4 Nucleated RBC % (0.0-0.3) % 0.0 Absolute Neutrophils (1.2-6.7) 10^3/uL 16.37 H Absolute Lymphocytes (1.2-3.4) 10^3/uL 1.50 Absolute Monocytes (0.1-0.8) 10^3/uL 0.46 Absolute Eosinophils (0.0-0.7) 10^3/uL 0.04 Absolute Basophils (0.0-0.2) 10^3/uL 0.07 Sodium (136-145) mmol/L 137 Potassium (3.5-5.1) mmol/L 3.5 Chloride (98-107) mmol/L 102 Carbon Dioxide (20.0-31.0) mmol/L 25.7 Anion Gap (3-11) mmol/L 9.3 BUN (9-23) mg/dL 11 Creatinine (0.55-1.02) mg/dL 0.54 L Est GFR (CKD-EPI 2020) (mL/min/1.73m2) 107.84 Glucose (74-106) mg/dL 142 H Calcium (8.3-10.6) mg/dL 8.8 Magnesium (1.6-2.6) mg/dL 1.8 Total Bilirubin (0.2-1.2) mg/dL 0.4 AST (<34) U/L 12 ALT (10-49) U/L 9 L Alkaline Phosphatase (46-116) U/L 150 H Troponin I (<35) ng/L < 3 Cancelled NT-Pro-B Natriuret Pep (<300) pg/mL 208 Total Protein (5.7-8.2) g/dL 7.3 Albumin (3.2-5.0) g/dL 4.2 COVID-19 Source Nasopharynx SARS-CoV-2 (PCR) (Negative) Negative Influenza Type A (PCR) (Negative) Negative Influenza Type B (PCR) (Negative) Negative RSV (PCR) (Negative) Negative Range/Units 08/10/25 16:41 WBC (4.4-10.8) 10^3/uL RBC (3.93-5.22) 10^6/uL Hgb (11.2-15.7) g/dL Hct (36.0-46.0) % MCV (80-95) fL MCH (27.0-33.0) pg MCHC (32.0-36.0) % RDW (11.7-14.6) % Plt Count (130-400) 10^3/uL MPV (8.0-11.0) fL Immature Gran % % Neutrophils % % Lymphocytes % % Monocytes % % Eosinophils % % Basophils % % Nucleated RBC % (0.0-0.3) % Absolute Neutrophils (1.2-6.7) 10^3/uL Absolute Lymphocytes (1.2-3.4) 10^3/uL Absolute Monocytes (0.1-0.8) 10^3/uL Absolute Eosinophils (0.0-0.7) 10^3/uL Absolute Basophils (0.0-0.2) 10^3/uL Sodium (136-145) mmol/L Potassium (3.5-5.1) mmol/L Chloride (98-107) mmol/L Carbon Dioxide (20.0-31.0) mmol/L Anion Gap (3-11) mmol/L BUN (9-23) mg/dL Creatinine (0.55-1.02) mg/dL Est GFR (CKD-EPI 2020) (mL/min/1.73m2) Glucose (74-106) mg/dL Calcium (8.3-10.6) mg/dL Magnesium (1.6-2.6) mg/dL Total Bilirubin (0.2-1.2) mg/dL AST (<34) U/L ALT (10-49) U/L Alkaline Phosphatase (46-116) U/L Troponin I (<35) ng/L Cancelled NT-Pro-B Natriuret Pep (<300) pg/mL Total Protein (5.7-8.2) g/dL Albumin (3.2-5.0) g/dL COVID-19 Source SARS-CoV-2 (PCR) (Negative) Influenza Type A (PCR) (Negative) Influenza Type B (PCR) (Negative) RSV (PCR) (Negative) Medical Decision Making This is AN 84-year-old female patient presenting for evaluation of shortness of breath, cough, and new oxygen requirement. Differential includes but is not limited to infectious pathologies including viral URI, pneumonia, bronchitis, certainly considered COPD exacerbation, pulmonary edema, pleural effusion. Less likely pulmonary embolism in this patient who is not tachycardic, does not have DVT evidence and is anticoagulated already. No chest pain but I did consider ACS, arrhythmia. We will obtain labs to include CBC, CMP, magnesium, troponin, Fluvid, BNP, and will provide the patient with a duo nebulizer treatment. I will hold on steroids and antibiotics at this time as she has very received doses of those today at her care facility. An EKG was obtained which shows a sinus rhythm with a rate of 71 and no evidence of acute ischemia or other abnormalities when compared to priors. I will obtain a chest x-ray. -Labs reveal a leukocytosis to 18, no significant anemia or thrombocytopenia. Chemistry panel without significant electrolyte derangement, evidence of kidney dysfunction or liver pathology other than a slightly elevated alkaline phosphatase to 150. Troponin is undetectable and given the lack of chest pain and duration of symptoms I do not see an indication to proceed with delta troponin measurements. BNP is low and the Fluvid is negative. The patient's chest x-ray shows some chronic scarring but no new consolidations or evidence of pulmonary edema. I am most concerned for COPD exacerbation, and feel that this patient would benefit from admission given her new oxygen requirement and ongoing increased work of breathing. I did provide her with a dose of ceftriaxone given the need for hospitalization. I reached out to the hospitalist who has graciously accepted this patient for admission to their service. The patient remained hemodynamically appropriate while under my care, saturating at 90% on 2 L by nasal cannula, though remaining tachypneic to 30. Was transferred from our service without incident. Marium Michele MD Quality:SDOH Health Related Social Needs: Health related social needs lonely/isolated PFSH All Active Problems (Updated 08/10/25 @ 15:46 by Marium Michele MD) Periprosthetic fracture of proximal end of femur (Acute) COPD exacerbation (Acute) Community acquired pneumonia (Acute) Respiratory failure (Acute) Former cigarette smoker (Acute) Urinary incontinence (Acute) Polyosteoarthritis (Acute) Unspecified macular degeneration (Acute) Encounter for immunization (Acute) Allergic rhinitis due to animal (cat) (dog) hair and dander (Acute) Localized edema (Acute) Cough (Acute) Shortness of breath (Acute) Vascular dementia without behavioral disturbance (Acute) Cognitive communication deficit (Acute) Chronic combined systolic and diastolic heart failure (Acute) Irritable bowel syndrome with diarrhea (Acute) Major depressive disorder with single episode (Acute) Sprain of left upper arm (Acute) Head injury (Acute) Laceration of scalp (Acute) Removal of crystal (Acute) ASHD (arteriosclerotic heart disease) (Chronic) Lone atrial fibrillation (Acute) Atrial fibrillation (Chronic) NSTEMI (non-ST elevated myocardial infarction) (Acute) Coronary artery disease (Chronic) Dyslipidemia (Chronic) Hypertension (Chronic) Tobacco abuse (Chronic) Frequent headaches (Chronic) Colon polyps (Chronic) GERD (gastroesophageal reflux disease) (Chronic) Fibrocystic breast changes (Chronic) Osteoarthritis (Chronic) Depression (Chronic) Memory loss (Chronic) Insomnia (Chronic) PTSD (post-traumatic stress disorder) (Chronic) Seasonal allergies (Chronic) Chronic pain (Chronic) Fibromyalgia (Chronic) Vitamin B 12 deficiency (Chronic) COPD (chronic obstructive pulmonary disease) (Chronic) Medical History Pneumonia Hx of falling Bronchitis Adenocarcinoma of endometrium Other chronic pain fibromyalgia Hyperlipidemia Anxiety Benign hypertension Wrist fracture, right Surgical History Replacement of total knee joint (02/07/08) right Total replacement of hip (09/11/08) left hip, right hip, right ANGELINA revision femoral stem with open reduction and internal fixation of periprosthetic fracture with cerclage cables. Total replacement of hip (09/04/08) left hip, right hip, right ANGELINA revision femoral stem with open reduction and internal fixation of periprosthetic fracture with cerclage cables. Total replacement of hip (03/26/01) left hip, right hip, right ANGELINA revision femoral stem with open reduction and internal fixation of periprosthetic fracture with cerclage cables. Hyseterectomy, Total Laparoscopic w/ BSO Social History Smoking/Tobacco Use Status: Former Tobacco Use Quit Date: 05/01/16 Smoking risk assessment performed?: Yes Alcohol Intake: never Drug use: Never Substance use type: does not use Housing: long term Do you feel safe at home: Yes Do you feel safe in your relationship?: Yes Additional Social history: from [place], moved into [facility] assisted living in 2021
--- NOTE | 2025-08-10 16:13 | W.PM.HP.N ---
Date of service: 08/10/25 Time of Service: 17:00 Assessment and Plan Assessment and plan (1) Acute hypoxic respiratory failure: Status: Acute Assessment and plan: Patient w/o chronic O2 requirement at home and presenting with saturation in the 80's . Maintains sat at 91-92 % on 2l/min of oxygen via nasal canula-up to 4 l/minutes when desaturation during coughing spells Pulmonary emboli unlikely as per symptomatology and anticoagulated state response to Oxygen, no pleural effusion on CXR Wean Oxygen for saturation 88-92% No past hyperccapnia on previous VBG Will give Azithromycin 500mg IV once then 250 mg IV on subsequent days X 4- one dose of ceftriaxone given in the ED And as below (2) COPD exacerbation: Status: Acute Assessment and plan: As per HPI No reported sick contact Upper respiratory viral panel negative - this does not preclude resp viral infection causing the exacerbation Steroid burst mucinex Benzonatate PRN and scheduled nebs (3) Sepsis: Status: Acute Assessment and plan: Sepsis criteria met with tachypnea RR 28 with WBC 18.54 w left shift with ANC 16- Source most likely respiratory and considering viral origin No pneumonia confirmation on single view CXR- might be early and will progress to CT imaging if not improving Procalcitonnin pending Sputum gram stain ordered No febrile illness - Blood C&S if febrile illness develops and consider lactate level And as below (4) Atrial fibrillation: Status: Chronic Assessment and plan: Ongoing home medicine regimen (5) Nausea: Status: Acute Assessment and plan: PRN antiemetic (6) Hyperlipidemia: Assessment and plan: Ongoing home medicine regimen (7) Benign hypertension: Assessment and plan: Ongoing home medicine regimen (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 Mendez History of Present Illness History of Present Illness Chief Complaint: Shortness of breath cough, new oxygen requirement Narrative: this 85 yo F patient with a PMhx of COPD, 60 pack-year smoking ( stopped in 2016) HFmrEF in 2018, CVA, atrial-fibrillation fully anticoagulated on Eliquis, HTN, depression, fibromyalgia presented to the ED for evaluation of cough with increased mucous production starting 3 days ago with now increased shortness of breath requiring new oxygen supplementation. The Patient received prednisone and Levaquin at the [facility] where she lives. Blood work in the ED showed leukocytosis with a WBC of 18.54 an ANC of 16.37 without other actionable findings. CXR was negative for acute findings and showed chronic right and mid left lung scaring. The upper respiratory viral panel was negative. In the ED the patient received nebulizer treatment, ceftriaxone and continue to require oxygen supplementation for saturation at 88% on RA - imrpoving to 92% on 2liters of oxygen /min via NC. The Patient was admitted to the hosptialist service on the med- surg floor for acute hypoxic respiratory failure in the setting of sepsis and COPD exacerbation. The patient reported: Increased cough with increased production of sputum, shortness of breath, abdominal pain with coughing, nausea The patient denied: Dizziness, change in vision, chest pain, vomiting , diarrhea or dysuria DNR DNI confirmed and new COLST form brought to the floor to be scanned in. Review of Systems All systems reviewed & are unremarkable except as noted in HPI and below PFSH All Active Problems (Updated 08/10/25 @ 18:18 by Arline Robison APRN) Heart failure with mildly reduced ejection fraction (HFmrEF) (Acute) Sepsis (Acute) Nausea (Acute) Acute hypoxic respiratory failure (Acute) Periprosthetic fracture of proximal end of femur (Acute) COPD exacerbation (Acute) Community acquired pneumonia (Acute) Respiratory failure (Acute) Former cigarette smoker (Acute) Urinary incontinence (Acute) Polyosteoarthritis (Acute) Unspecified macular degeneration (Acute) Encounter for immunization (Acute) Allergic rhinitis due to animal (cat) (dog) hair and dander (Acute) Localized edema (Acute) Cough (Acute) Shortness of breath (Acute) Vascular dementia without behavioral disturbance (Acute) Cognitive communication deficit (Acute) Chronic combined systolic and diastolic heart failure (Acute) Irritable bowel syndrome with diarrhea (Acute) Major depressive disorder with single episode (Acute) Sprain of left upper arm (Acute) Head injury (Acute) Laceration of scalp (Acute) Removal of crystal (Acute) ASHD (arteriosclerotic heart disease) (Chronic) Lone atrial fibrillation (Acute) Atrial fibrillation (Chronic) NSTEMI (non-ST elevated myocardial infarction) (Acute) Coronary artery disease (Chronic) Dyslipidemia (Chronic) Hypertension (Chronic) Tobacco abuse (Chronic) Frequent headaches (Chronic) Colon polyps (Chronic) GERD (gastroesophageal reflux disease) (Chronic) Fibrocystic breast changes (Chronic) Osteoarthritis (Chronic) Depression (Chronic) Memory loss (Chronic) Insomnia (Chronic) PTSD (post-traumatic stress disorder) (Chronic) Seasonal allergies (Chronic) Chronic pain (Chronic) Fibromyalgia (Chronic) Vitamin B 12 deficiency (Chronic) COPD (chronic obstructive pulmonary disease) (Chronic) Medical History Pneumonia Hx of falling Bronchitis Adenocarcinoma of endometrium Other chronic pain fibromyalgia Hyperlipidemia Anxiety Benign hypertension Wrist fracture, right Surgical History Replacement of total knee joint (02/07/08) right Total replacement of hip (09/11/08) left hip, right hip, right ANGELINA revision femoral stem with open reduction and internal fixation of periprosthetic fracture with cerclage cables. Total replacement of hip (09/04/08) left hip, right hip, right ANGELINA revision femoral stem with open reduction and internal fixation of periprosthetic fracture with cerclage cables. Total replacement of hip (03/26/01) left hip, right hip, right ANGELINA revision femoral stem with open reduction and internal fixation of periprosthetic fracture with cerclage cables. Hyseterectomy, Total Laparoscopic w/ BSO Social History Smoking/Tobacco Use Status: Former Tobacco Use Quit Date: 05/01/16 Smoking risk assessment performed?: Yes Alcohol Intake: never Drug use: Never Substance use type: does not use Housing: group home Do you feel safe at home: Yes Do you feel safe in your relationship?: Yes Additional Social history: from [place], moved into [facility] living in 2021 Meds Allergies and Home Medications Allergies Allergy/AdvReac Type Severity Reaction Status Date / Time Penicillins Allergy Severe Anaphylaxsi Verified 06/09/25 10:05 s codeine Allergy Unknown Unknown Verified 06/09/25 10:05 Home Medications ?Medication ?Instructions ?Recorded ?Confirmed ?Type gabapentin 300 mg capsule 600 mg PO HS 03/09/13 06/09/25 History (Neurontin) furosemide 20 mg tablet (Lasix) 20 mg PO DAILY 11/04/16 06/09/25 History nitroglycerin 0.4 mg sublingual 0.4 mg buccal Q5 MIN PRN X3 PRN 11/04/16 06/09/25 History tablet (Nitrostat) albuterol sulfate 90 mcg/actuation 2 puff inhalation Q4H PRN 10/26/17 06/09/25 History aerosol inhaler (Ventolin HFA) amlodipine 10 mg tablet (Norvasc) 10 mg PO DAILY 10/26/17 06/09/25 History cyanocobalamin (vitamin B-12) 1,000 mcg IM DIRECTED 10/26/17 06/09/25 History 1,000 mcg/mL injection kit (B-12 Compliance) ibuprofen 600 mg tablet 600 mg PO DAILY 07/11/21 06/09/25 History aspirin 81 mg tablet,delayed 81 mg PO DAILY 11/26/22 06/09/25 History release (Adult Aspirin Regimen) fluticasone fur. 100 mcg-umeclid 1 inh inhalation DAILY 11/26/22 06/09/25 History 62.5 mcg-vilant 25 mcg inhalat.powder (Trelegy Ellipta) loperamide 2 mg capsule 2 mg PO .COMPLEX PRN 11/26/22 06/09/25 History (Anti-Diarrheal (loperamide)) loratadine 10 mg tablet (Allergy 10 mg PO DAILY 11/26/22 06/09/25 History Relief (loratadine)) nicotrol inhaler cartridge See Rx Instructions .Route .COMPLEX 11/26/22 06/09/25 History losartan 25 mg tablet 25 mg PO DAILY 12/16/22 06/09/25 History bupropion HCl 300 mg 24 hr tablet, 300 mg PO DAILY 09/30/24 06/09/25 History extended release citalopram 20 mg tablet 20 mg PO DAILY 09/30/24 06/09/25 History metoprolol tartrate 50 mg tablet 50 mg PO BID 09/30/24 06/09/25 History potassium chloride 10 mEq 10 meq PO DAILY 09/30/24 06/09/25 History tablet,extended release acetaminophen 500 mg tablet 1,000 mg PO TID 11/14/24 06/09/25 History meclizine 12.5 mg tablet 12.5 mg PO TID 11/14/24 06/09/25 History acidophilus 100 million 1 cap PO BID 06/09/25 06/09/25 History cell-pectin, citrus 10 mg capsule (Probiotic Acidophilus-Pectin) apixaban 2.5 mg tablet (Eliquis) 2.5 mg PO BID 06/09/25 06/09/25 History ipratropium 0.5 mg-albuterol 3 mg 3 ml inhalation Q6H PRN 08/10/25 08/10/25 History (2.5 mg base)/3 mL nebulization soln levofloxacin 750 mg tablet 750 mg PO DAILY 08/10/25 08/10/25 History melatonin 5 mg capsule 5 mg PO HS 08/10/25 08/10/25 History nystatin 100,000 unit/gram topical 1 applic topical DAILY 08/10/25 08/10/25 History powder (Nystop) omeprazole 20 mg capsule,delayed 20 mg PO DAILY 08/10/25 08/10/25 History release prednisone 20 mg tablet 20 mg PO DAILY 08/10/25 08/10/25 History tramadol 50 mg tablet 50 mg PO DAILY PRN 08/10/25 08/10/25 History Exam Narrative Exam Narrative: Alert & oriented X 3 , no acute neurlogical focal deficit , Scattered wheezing bilaterally, diminished bases, S1, S2 regular, PPPX4 - trace edema to LEs R>L, abdomen is non-acute bowel sounds are present, no bladder distention moves all 4 ext Results Labs 08/10/25 14:00 08/10/25 14:00 Labs: Laboratory Results - last 24 hr 08/10/25 08/10/25 08/10/25 13:44 14:00 14:41 WBC 18.54 H RBC 4.22 Hgb 11.1 L Hct 35.7 L MCV 85 MCH 26.3 L MCHC 31.1 L RDW 15.2 H Plt Count 398 MPV 9.5 Immature Gran % 0.5 Neutrophils % 88.3 Lymphocytes % 8.1 Monocytes % 2.5 Eosinophils % 0.2 Basophils % 0.4 Nucleated RBC % 0.0 Absolute Neutrophils 16.37 H Absolute Lymphocytes 1.50 Absolute Monocytes 0.46 Absolute Eosinophils 0.04 Absolute Basophils 0.07 Sodium 137 Potassium 3.5 Chloride 102 Carbon Dioxide 25.7 Anion Gap 9.3 BUN 11 Creatinine 0.54 L Est GFR (CKD-EPI 2020) 107.84 Glucose 142 H Calcium 8.8 Magnesium 1.8 Total Bilirubin 0.4 AST 12 ALT 9 L Alkaline Phosphatase 150 H Troponin I < 3 Cancelled NT-Pro-B Natriuret Pep 208 Total Protein 7.3 Albumin 4.2 COVID-19 Source Nasopharynx SARS-CoV-2 (PCR) Negative Influenza Type A (PCR) Negative Influenza Type B (PCR) Negative RSV (PCR) Negative 08/10/25 16:41 WBC RBC Hgb Hct MCV MCH MCHC RDW Plt Count MPV Immature Gran % Neutrophils % Lymphocytes % Monocytes % Eosinophils % Basophils % Nucleated RBC % Absolute Neutrophils Absolute Lymphocytes Absolute Monocytes Absolute Eosinophils Absolute Basophils Sodium Potassium Chloride Carbon Dioxide Anion Gap BUN Creatinine Est GFR (CKD-EPI 2020) Glucose Calcium Magnesium Total Bilirubin AST ALT Alkaline Phosphatase Troponin I Cancelled NT-Pro-B Natriuret Pep Total Protein Albumin COVID-19 Source SARS-CoV-2 (PCR) Influenza Type A (PCR) Influenza Type B (PCR) RSV (PCR) Last Vital Signs Temp 36.6 C 08/10/25 13:35 Pulse 75 08/10/25 15:35 Resp 28 H 08/10/25 15:35 BP 138/66 08/10/25 15:35 Pulse Ox 89 L 08/10/25 15:35 VTE Prohylaxis Risk Level: Moderate/High Risk Contraindications: None Prophylaxis: Patient anticoagulated Time Spent Time spent with Patient: >75 minutes Time was spent: preparing to see the patient(eg.review tests), obtaining and/or reviewing separately otained hiistory, ordering medications,tests, procedures, referring, communicating with other health rn progressive care, indepentently interpreting results, counseling the patient, care coordination and other
--- NOTE | 2025-08-10 16:48 | W.PC.ACHO ---
Registration Status: REG ER Primary Language: Preferred Language: Uzbek ED Information & Data Chief Complaint RespSymp 08/10/25 15:46 Triage Note cold sx started yesterday. 08/10/25 13:35 Was 88-89% on RA- declined abx, duoneb, oxygen or steroids yesterday at the [facility]. Today worsening symptoms and O2 lower. Took Levaquin, 40mg prednisone at [facility] and received 4mg zofran IV by EMS Medical / Surgical History (Last Reviewed 06/09/25 @ 13:39 by Mundo Whittington MD) Pneumonia Hx of falling Bronchitis Adenocarcinoma of endometrium Other chronic pain Hyperlipidemia Anxiety Benign hypertension Wrist fracture, right (Last Reviewed 06/09/25 @ 13:39 by Mundo Whittington MD) Replacement of total knee joint (02/07/08) Total replacement of hip (09/11/08) Total replacement of hip (09/04/08) Total replacement of hip (03/26/01) Hyseterectomy, Total Laparoscopic w/ BSO Most Recent Vital Signs Temperature 36.6 C 08/10/25 13:35 Temperature Source Temporal Artery Scan 08/10/25 13:35 Pulse 75 08/10/25 15:35 Pulse 77 08/10/25 15:35 Respiratory Rate 28 H 08/10/25 15:35 Respiratory Effort Normal 08/10/25 14:25 Blood Pressure 138/66 08/10/25 15:35 Blood Pressure Mean 92 08/10/25 15:35 Blood Pressure Position Supine 08/10/25 13:35 Pulse Oximetry 89 L 08/10/25 15:35 Oxygen Delivery Method Room Air 08/10/25 13:35 Oxygen Flow Rate 0 08/10/25 13:35 Allergies Penicillins Allergy (Severe, Verified 06/09/25 10:05) Anaphylaxsis codeine Allergy (Unknown, Verified 06/09/25 10:05) Unknown IV IV Catheter Type [Left Wrist] Saline Lock IV Catheter Gauge [Left Wrist] 20 Diagnostics 08/10/25 08/10/25 08/10/25 Range/Units 16:41 14:41 14:00 WBC 18.54 H (4.4-10.8) 10^3/uL RBC 4.22 (3.93-5.22) 10^6/uL Hgb 11.1 L (11.2-15.7) g/dL Hct 35.7 L (36.0-46.0) % MCV 85 (80-95) fL MCH 26.3 L (27.0-33.0) pg MCHC 31.1 L (32.0-36.0) % RDW 15.2 H (11.7-14.6) % Plt Count 398 (130-400) 10^3/uL MPV 9.5 (8.0-11.0) fL Immature Gran % 0.5 % Neutrophils % 88.3 % Lymphocytes % 8.1 % Monocytes % 2.5 % Eosinophils % 0.2 % Basophils % 0.4 % Nucleated RBC % 0.0 (0.0-0.3) % Absolute Neutrophils 16.37 H (1.2-6.7) 10^3/uL Absolute Lymphocytes 1.50 (1.2-3.4) 10^3/uL Absolute Monocytes 0.46 (0.1-0.8) 10^3/uL Absolute Eosinophils 0.04 (0.0-0.7) 10^3/uL Absolute Basophils 0.07 (0.0-0.2) 10^3/uL Sodium 137 (136-145) mmol/L Potassium 3.5 (3.5-5.1) mmol/L Chloride 102 (98-107) mmol/L Carbon Dioxide 25.7 (20.0-31.0) mmol/L Anion Gap 9.3 (3-11) mmol/L BUN 11 (9-23) mg/dL Creatinine 0.54 L (0.55-1.02) mg/dL Est GFR (CKD-EPI 2020) 107.84 (mL/min/1.73m2) Glucose 142 H (74-106) mg/dL Calcium 8.8 (8.3-10.6) mg/dL Magnesium 1.8 (1.6-2.6) mg/dL Total Bilirubin 0.4 (0.2-1.2) mg/dL AST 12 (<34) U/L ALT 9 L (10-49) U/L Alkaline Phosphatase 150 H (46-116) U/L Troponin I Cancelled Cancelled < 3 (<35) ng/L NT-Pro-B Natriuret Pep 208 (<300) pg/mL Total Protein 7.3 (5.7-8.2) g/dL Albumin 4.2 (3.2-5.0) g/dL COVID-19 Source SARS-CoV-2 (PCR) (Negative) Influenza Type A (PCR) (Negative) Influenza Type B (PCR) (Negative) RSV (PCR) (Negative) 08/10/25 Range/Units 13:44 WBC (4.4-10.8) 10^3/uL RBC (3.93-5.22) 10^6/uL Hgb (11.2-15.7) g/dL Hct (36.0-46.0) % MCV (80-95) fL MCH (27.0-33.0) pg MCHC (32.0-36.0) % RDW (11.7-14.6) % Plt Count (130-400) 10^3/uL MPV (8.0-11.0) fL Immature Gran % % Neutrophils % % Lymphocytes % % Monocytes % % Eosinophils % % Basophils % % Nucleated RBC % (0.0-0.3) % Absolute Neutrophils (1.2-6.7) 10^3/uL Absolute Lymphocytes (1.2-3.4) 10^3/uL Absolute Monocytes (0.1-0.8) 10^3/uL Absolute Eosinophils (0.0-0.7) 10^3/uL Absolute Basophils (0.0-0.2) 10^3/uL Sodium (136-145) mmol/L Potassium (3.5-5.1) mmol/L Chloride (98-107) mmol/L Carbon Dioxide (20.0-31.0) mmol/L Anion Gap (3-11) mmol/L BUN (9-23) mg/dL Creatinine (0.55-1.02) mg/dL Est GFR (CKD-EPI 2020) (mL/min/1.73m2) Glucose (74-106) mg/dL Calcium (8.3-10.6) mg/dL Magnesium (1.6-2.6) mg/dL Total Bilirubin (0.2-1.2) mg/dL AST (<34) U/L ALT (10-49) U/L Alkaline Phosphatase (46-116) U/L Troponin I (<35) ng/L NT-Pro-B Natriuret Pep (<300) pg/mL Total Protein (5.7-8.2) g/dL Albumin (3.2-5.0) g/dL COVID-19 Source Nasopharynx SARS-CoV-2 (PCR) Negative (Negative) Influenza Type A (PCR) Negative (Negative) Influenza Type B (PCR) Negative (Negative) RSV (PCR) Negative (Negative) Intake and Output - 24 Hour Total 08/10/25 13:29 thru 08/10/25 16:13 Intake Total 50 Balance 50 Weight 90.265 kg Intake: IV 50 Falls Risk Assessment History of Falls No History 08/10/25 14:25 Contributing Factors No Factors 08/10/25 14:25 Ambulatory Aids Independent 08/10/25 14:25 Tubes/Lines None 08/10/25 14:25 Gait Evaluation No gait disturbance 08/10/25 14:25 Cognition No cognitive impairment 08/10/25 14:25 Fall Total Score 0 08/10/25 14:25 Level of Risk Standard/Low Risk 08/10/25 14:25 Attestation Statement: By documenting the first initial, last name, and credentials of the reporting nurse below, both parties acknowledge that all relevant information regarding the patient handoff has been communicated, and that all questions have been addressed to ensure continuity and safety of care. Additional Patient Information/Comments: Paged at [phone], called for report at [phone]. 20 L AC that was placed by EMS. Report Received From: Francesca Tse ED RN
[2025-08-10 18:18] LABS: Procalcitonin < 0.10 ng/mL
[2025-08-10] MEDS: Prochlorperazine 10 MG/2 ML VIAL 5 MG IVP (18:35)
[2025-08-10] MEDS: AZITHROMYCIN 500 MG in Normal Saline 250 ML 250 MG IVPB (19:04)
[2025-08-10] MEDS: Normal Saline Flush 10 ML SYR ×2 (19:11→20:20)
[2025-08-10] MEDS: Meclizine 12.5 MG TAB PO (20:33)
[2025-08-10] MEDS: Melatonin 3 MG TAB 4.5 MG PO (20:34)
[2025-08-10] MEDS: Metoprolol 50 MG TAB PO (20:34)
[2025-08-10] MEDS: Gabapentin 300 MG CAP 600 MG PO (20:34)
[2025-08-10] MEDS: Apixaban 2.5 MG TAB PO (20:34)
[2025-08-10] MEDS: guaiFENesin 600 MG TABCR PO (20:35)
[2025-08-10] MEDS: Benzonatate 100 MG CAP PO (20:35)
[2025-08-11] VITALS (13 sets, daily range): BP systolic 121–143; BP diastolic 63–75; PULSE 64–86; RESP 16–21; TEMP 36.5–37.1; O2SAT 88–94
[2025-08-11] MEDS: Albuterol/Ipratropium 3 ML UPD VIAL UPD ×5 (00:34→23:51)
[2025-08-11 07:00] LABS: Anion Gap 9 mmol/L (3-11); BUN 10 mg/dL (9-23); CO2 28.0 mmol/L (20.0-31.0); Calcium 9.3 mg/dL (8.3-10.6); Chloride 103 mmol/L (98-107); Glucose 96 mg/dL (74-106); Potassium 3.7 mmol/L (3.5-5.1); Sodium 140 mmol/L (136-145)
[2025-08-11] MEDS: Benzonatate 100 MG CAP PO ×3 (07:12→21:14)
[2025-08-11] MEDS: guaiFENesin 600 MG TABCR PO ×2 (07:12→21:14)
[2025-08-11 07:56] LABS: Abs Immature Grans 0.05 10^3/uL (0.0-0.06); HCT 34.9 % (36.0-46.0); HGB 10.8 g/dL (11.2-15.7); Immature Grans % 0.4 %; MCH 26.6 pg (27.0-33.0); MCHC 30.9 % (32.0-36.0); MCV 86 fL (80-95); MPV 9.9 fL (8.0-11.0); Platelet Count 402 10^3/uL (130-400); RBC 4.06 10^6/uL (3.93-5.22); RDW 15.3 % (11.7-14.6); RDW-SD 47.9 fL; WBC 12.04 10^3/uL (4.4-10.8)
[2025-08-11] MEDS: Citalopram 20 MG TAB PO (08:13)
[2025-08-11] MEDS: Meclizine 12.5 MG TAB PO ×3 (08:13→21:14)
[2025-08-11] MEDS: Normal Saline Flush 10 ML SYR IVP ×2 (08:13→17:38)
[2025-08-11] MEDS: amLODIPine 10 MG TAB PO (08:13)
[2025-08-11] MEDS: buPROPion-XL 150 MG TABCR 300 MG PO (08:13)
[2025-08-11] MEDS: predniSONE 20 MG TAB 60 MG PO (08:13)
[2025-08-11] MEDS: Potassium Chloride 10 MEQ CAPCR PO (08:13)
[2025-08-11] MEDS: Omeprazole 20 MG CAPCR PO (08:13)
[2025-08-11] MEDS: Loratidine 10 MG TAB PO (08:14)
[2025-08-11] MEDS: Losartan 25 MG TAB PO (08:14)
[2025-08-11] MEDS: Metoprolol 50 MG TAB PO ×2 (08:14→21:15)
[2025-08-11] MEDS: Apixaban 2.5 MG TAB PO ×2 (08:14→21:15)
[2025-08-11] MEDS: Furosemide 20 MG TAB PO (08:14)
[2025-08-11] MEDS: Budesonide/Formoterol 80/4.5 6.9 GM 60 PUFF INH IH ×2 (08:39→19:47)
[2025-08-11] MEDS: Tiotropium Bromide-Respimat 10 PUFF INH IH (08:40)
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
--- NOTE | 2025-08-11 10:15 | W.PM.PROGNOT ---
Date of Service Date of service: 08/11/25 Time of Service: 10:15 Assessment and Plan Assessment and plan (1) Acute hypoxic respiratory failure: Status: Acute Assessment and plan: Patient w/o chronic O2 requirement at home and presenting with saturation in the 80's . Maintains sat at 91-92 % on 2l/min of oxygen via nasal canula-up to 4 l/minutes when desaturation during coughing spells No pleural effusion on imaging, pulmonary emboli unlikely as per symptomatology, anticoagulated state and response to Oxygen, no pleural effusion on CXR BNP negative - improving exp wheezing, A lines , no obvious B-lines and IVC non-plethoric during exam - on home dose furosemide Likely in the setting of COPD exacerbation Wean Oxygen for saturation 88-92% No past hyperccapnia on previous VBG Azithromycin 500mg IV once then 250 mg daily X4 One dose of ceftriaxone given in the ED- On admission Consideration given to sepsis as per criteria with tachypnea RR 28 with WBC 18.54 w left shift with ANC 16- and source most likely respiratory and consideration for viral origin VS unknown source WBC trending down still> 12 and resolution of tachypnea , negative procalcitonin No pneumonia confirmation on single view CXR- Sputum gram stain with normal brigid and no subsequent febrile illness - Sepsis most unlikely And as below (2) COPD exacerbation: Status: Acute Assessment and plan: No reported sick contact at the SNF Upper respiratory viral panel negative - this does not preclude resp viral infection causing the exacerbation On Azithromycin day 2/5 Continue oral prednisone burst day 2/5 Ongoing mucinex, benzonatate, PRN and scheduled nebs cough is less but requesting home cough suppressant - ordered (3) Atrial fibrillation: Status: Chronic Assessment and plan: Hx of PAF continue Eliquis and metoprolol outpatient regimen Consider metoprolol succinate with Hx of HFmrEF or HFrEF- will defer to outpatient provider or cardiology (4) Nausea: Status: Acute Assessment and plan: No further c/o Continue PRN antiemetic (5) Hyperlipidemia: Assessment and plan: Continue home medicine regimen (6) Benign hypertension: Assessment and plan: Continue home medicine regimen (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 Mendez Discharge Planning Discharge Plannin H back to [facility] possible on 08/12/2025 Subjective Subjective Patient reports: no new complaints, feels better, tolerating liquids well, tolerating a regular diet, voiding w/o difficulty, flatus, no bowel movement and shortness of breath (imrpoving ); denies diarrhea, nausea, vomiting or fever Exam Narrative Exam Narrative: Alert & oriented X 3 , no acute neurlogical focal deficit , improved exp wheezing - localized to L chest and improving bibasilar air-flow, S1, S2 regular, PPPX4 - trace edema improving , abdomen is rounded, non-tympanic, minimally distended, soft and non-tender bowel sounds are present, no CVA tenderness, using FWW for ambulation in room Objective Last Vital Signs Temp 36.9 C 08/11/25 07:56 Pulse 76 08/11/25 07:56 Resp 16 08/11/25 07:56 BP 129/66 08/11/25 07:56 Pulse Ox 90 L 08/11/25 08:45 Laboratory Results - last 24 hr 08/10/25 08/10/25 08/10/25 13:44 14:00 14:41 WBC 18.54 H RBC 4.22 Hgb 11.1 L Hct 35.7 L MCV 85 MCH 26.3 L MCHC 31.1 L RDW 15.2 H Plt Count 398 MPV 9.5 Immature Gran % 0.5 Neutrophils % 88.3 Lymphocytes % 8.1 Monocytes % 2.5 Eosinophils % 0.2 Basophils % 0.4 Nucleated RBC % 0.0 Absolute Neutrophils 16.37 H Absolute Lymphocytes 1.50 Absolute Monocytes 0.46 Absolute Eosinophils 0.04 Absolute Basophils 0.07 Sodium 137 Potassium 3.5 Chloride 102 Carbon Dioxide 25.7 Anion Gap 9.3 BUN 11 Creatinine 0.54 L Est GFR (CKD-EPI 2020) 107.84 Glucose 142 H Calcium 8.8 Magnesium 1.8 Total Bilirubin 0.4 AST 12 ALT 9 L Alkaline Phosphatase 150 H Troponin I < 3 Cancelled NT-Pro-B Natriuret Pep 208 Total Protein 7.3 Albumin 4.2 Procalcitonin < 0.10 COVID-19 Source Nasopharynx SARS-CoV-2 (PCR) Negative Influenza Type A (PCR) Negative Influenza Type B (PCR) Negative RSV (PCR) Negative 08/10/25 08/11/25 16:41 06:05 WBC 12.04 H RBC 4.06 Hgb 10.8 L Hct 34.9 L MCV 86 MCH 26.6 L MCHC 30.9 L RDW 15.3 H Plt Count 402 H MPV 9.9 Immature Gran % 0.4 Neutrophils % 66.9 Lymphocytes % 22.5 Monocytes % 9.5 Eosinophils % 0.4 Basophils % 0.3 Nucleated RBC % 0.0 Absolute Neutrophils 8.05 H Absolute Lymphocytes 2.71 Absolute Monocytes 1.14 H Absolute Eosinophils 0.05 Absolute Basophils 0.04 Sodium 140 Potassium 3.7 Chloride 103 Carbon Dioxide 28.0 Anion Gap 9 BUN 10 Creatinine 0.55 Est GFR (CKD-EPI 2020) 105.58 Glucose 96 Calcium 9.3 Magnesium Total Bilirubin AST ALT Alkaline Phosphatase Troponin I Cancelled NT-Pro-B Natriuret Pep Total Protein Albumin Procalcitonin COVID-19 Source SARS-CoV-2 (PCR) Influenza Type A (PCR) Influenza Type B (PCR) RSV (PCR) VTE Prohylaxis Risk Level: Moderate/High Risk Contraindications: None Prophylaxis: Patient anticoagulated Time Spent with Patient Time Spent with Patient: >50 minutes Time was spent: preparing to see the patient(eg.review tests), obtaining and/or reviewing separately otained hiistory, ordering medications,tests, procedures, referring, communicating with other health youth care specialist, indepentently interpreting results, counseling the patient, care coordination and other
[2025-08-11] MEDS: guaiFENesin/D-METHORPHAN HB 5 ML CUP 10 ML PO (12:46)
--- NOTE | 2025-08-11 12:54 | PHA.REVIEW2 ---
Pharmacy Admission Review Admission Clinical Review Admission Pharmacy Review: Heart failure with mildly reduced ejection fraction (HFmrEF) (Acute) Sepsis (Acute) Nausea (Acute) Acute hypoxic respiratory failure (Acute) COPD exacerbation (Acute) Penicillins Allergy (Severe, Verified 06/09/25 10:05) Anaphylaxsis codeine Allergy (Unknown, Verified 06/09/25 10:05) Unknown Resuscitation Status DNR/DNI Height 5 ft Weight 87.5 kg Pharmacy Admission Review Renal Dosing Renal Dosing: BUN 10 mg/dL (9-23) 08/11/25 06:05 Creatinine 0.55 mg/dL (0.55-1.02) 08/11/25 06:05 Medications needing adjustments: Reviewed (CrCl 42.65 mL/min) Anticoagulation Anticoagulation: Hgb 10.8 g/dL (11.2-15.7) L 08/11/25 06:05 Hct 34.9 % (36.0-46.0) L 08/11/25 06:05 Plt Count 402 10^3/uL (130-400) H 08/11/25 06:05 Creatinine 0.55 mg/dL (0.55-1.02) 08/11/25 06:05 DVT Prophylaxis: Reviewed Medications: Apixaban (2.5mg BID) Relevant Labs Relevant Labs: Sodium 140 mmol/L (136-145) 08/11/25 06:05 Potassium 3.7 mmol/L (3.5-5.1) 08/11/25 06:05 Chloride 103 mmol/L (98-107) 08/11/25 06:05 Magnesium 1.8 mg/dL (1.6-2.6) 08/10/25 14:00 Electrolytes, C-Reactive P, ESR: Reviewed Cardiac Review Cardiac Review: Troponin I Cancelled 08/10/25 16:41 NT-Pro-B Natriuret Pep 208 pg/mL (<300) 08/10/25 14:00 BP, HR, EF%: Reviewed (BP/HR WNL, Ox 91) List meds needing interventions: Has orders for amlodipine 10mg daily, furosemide 20mg daily, losartan 25mg daily and metoprolol 50mg BID QTc Review QTc: Reviewed (430 from 08/10/25) IV to PO Switch IV Medications: Reviewed (azithromycin and prochlorperazine) Home Meds Home Med List reviewed: Reviewed Relevent Home Meds Not ordered & why?: vitamin B12 (monthly), Trelegy (substituted with Symbicort and Spiriva per pharmacy protocol), ibuprofen, levofloxacin, loperamide (PRN), Nicotrol, nitroglycerin (PRN) and tramadol (PRN) Current Meds Current Medication Order Review: Intervened Comments: Changed timing of omeprazole from 0830 to 0730 Pharmacy Antibiotic Review Relevant Labs: Relevant Labs 08/10/25 14:00 Procalcitonin < 0.10 WBC 12.04 10^3/uL (4.4-10.8) H 08/11/25 06:05 Procalcitonin < 0.10 ng/mL 08/10/25 14:00 Temperature 36.9 C Temperature 36.5 C Microbiology 08/10/25 18:41 Sputum Culture - Preliminary Sputum Normal Fiona Gram Stain - Final Pharmacy Antibiotic Activity: C/S review and Reviewed, no change Comments: Patient is on azithromycin, day 1, for COPD exacerbation. WBC decreased from 18.54.
[2025-08-11] MEDS: AZITHROMYCIN 250 MG in Normal Saline 250 ML IVPB (17:38)
[2025-08-11] MEDS: Melatonin 3 MG TAB 4.5 MG PO (21:15)
[2025-08-11] MEDS: Gabapentin 300 MG CAP 600 MG PO (21:15)
[2025-08-12 06:01] VITALS: PULSE 73; RESP 18; O2SAT 90
[2025-08-12] MEDS: Albuterol/Ipratropium 3 ML UPD VIAL UPD ×2 (06:01→11:13)
[2025-08-12 06:10] VITALS: BP 139/74; PULSE 72; RESP 16; TEMP 36.8; O2SAT 90
[2025-08-12 07:30] VITALS: BP 129/68; PULSE 74; RESP 18; TEMP 37.5; O2SAT 91
[2025-08-12] MEDS: Normal Saline Flush 10 ML SYR IVP (07:39)
[2025-08-12] MEDS: Metoprolol 50 MG TAB PO (07:39)
[2025-08-12] MEDS: Meclizine 12.5 MG TAB PO ×2 (07:40→13:20)
[2025-08-12] MEDS: Benzonatate 100 MG CAP PO ×2 (07:40→13:21)
[2025-08-12] MEDS: Citalopram 20 MG TAB PO (07:40)
[2025-08-12] MEDS: Furosemide 20 MG TAB PO (07:40)
[2025-08-12] MEDS: Docusate Sodium 100 MG CAP PO ×2 (07:40→13:19)
[2025-08-12] MEDS: Potassium Chloride 10 MEQ CAPCR PO (07:40)
[2025-08-12] MEDS: buPROPion-XL 150 MG TABCR 300 MG PO (07:40)
[2025-08-12] MEDS: Losartan 25 MG TAB PO (07:41)
[2025-08-12] MEDS: predniSONE 20 MG TAB 60 MG PO (07:41)
[2025-08-12] MEDS: Omeprazole 20 MG CAPCR PO (07:41)
[2025-08-12] MEDS: Loratidine 10 MG TAB PO (07:42)
[2025-08-12] MEDS: Apixaban 2.5 MG TAB PO (07:42)
[2025-08-12] MEDS: amLODIPine 10 MG TAB PO (07:42)
[2025-08-12] MEDS: guaiFENesin 600 MG TABCR PO (07:42)
[2025-08-12] MEDS: Budesonide/Formoterol 80/4.5 6.9 GM 60 PUFF INH IH (07:54)
[2025-08-12] MEDS: Tiotropium Bromide-Respimat 10 PUFF INH IH (07:54)
[2025-08-12 07:55] VITALS: O2SAT 91
[2025-08-12 11:13] VITALS: PULSE 69; RESP 19; O2SAT 89
[2025-08-12 11:54] VITALS: BP 109/67; PULSE 74; RESP 16; TEMP 36.6; O2SAT 91
--- NOTE | 2025-08-12 13:17 | DSE_ITS ---
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): Status: Acute (8) Anxiety: Discharge Plan Disposition Patient Disposition: [facility] Facility(SNF) Anticipated Discharge Date/Time: 08/12/25 13:03 Condition: Fair Discharge Details Reason For Visit: Acute Hypoxic Respiratory Failure Admit Date/Time: 08/10/25 16:20 Admit Provider: Andrés Mendez Attending Provider: Andrés Mendez Primary Care Provider: Jazzy Hays Hospital Course Hospital Course: This 85-year-old female patient with a history of COPD, a 60 pack-year smoking history (ceased in 2015), HFmrEF (2017), CVA, atrial fibrillation (on Eliquis), hypertension, depression, and fibromyalgia, presented to the ED with increased cough and sputum production for 3 days. She had increased shortness of breath requiring supplemental oxygen. Prior to presenting to the ED she was treated with prednisone and Levaquin. Blood work showed leukocytosis (WBC 18.54, ANC 16.37) without other significant findings. Chest X-ray revealed chronic lung scarring but no acute abnormalities. The upper respiratory viral panel was negative. She continued to require oxygen supplementation with improved saturation from 88% on room air to 92% on 2L/min via nasal cannula. The patient was admitted for acute hypoxic respiratory failure, likely due to a COPD exacerbation and concurrent sepsis. Her condition improved with oxygen therapy and antibiotics. Patient received 3 days of azithromycin 500 mg (complete course). 08/12 - WBC 12.04; Hgb 10.8 Chemistries unremarkable; no oxygen requirement. She is discharged with close follow-up care for her multiple chronic conditions, including COPD, heart failure, and atrial fibrillation. Medications on Discharge: * Steroid Burst Prednisone 40 mg orally daily for 4 days start on 08/13) * Mucinex, Benzonatate, Albuterol and Ipratropium nebulizers as needed. Home Meds and New Rx's Prescriptions: New prednisone 20 mg Tablet 40 mg PO DAILY Qty: 0 0RF benzonatate 100 mg Capsule 100 mg PO TID PRN (Reason: Cough) Qty: 0 0RF guaifenesin [Mucus Relief ER] 600 mg Tablet Extended Release 12hr 600 mg PO BID Qty: 0 0RF Continued losartan 25 mg tablet 25 mg PO DAILY nitroglycerin [Nitrostat] 0.4 MG tablet, sublingual 0.4 mg Buccal Q5 MIN PRN X3 PRN furosemide [Lasix] 20 MG tablet 20 mg PO DAILY loratadine [Allergy Relief (loratadine)] 10 mg tablet 10 mg PO DAILY Trelegy Ellipta 100-62.5-25 mcg blister with device 1 inh inhalation DAILY nicotrol inhaler cartridge See Rx Instructions .ROUTE .COMPLEX Rx Instructions: as directed; loperamide [Anti-Diarrheal (loperamide)] 2 mg capsule 2 mg PO .COMPLEX PRN Rx Instructions: 2 mg orally as directed PRN; gabapentin [Neurontin] 300 MG capsule 600 mg PO HS Patient Comments: 900 QHS ibuprofen 600 mg tablet 600 mg PO DAILY acetaminophen 500 mg tablet 1,000 mg PO TID Rx Instructions: scheduled for chronic pain meclizine 12.5 mg tablet 12.5 mg PO TID Eliquis 2.5 mg tablet 2.5 mg PO BID omeprazole 20 mg capsule,delayed release(DR/EC) 20 mg PO DAILY melatonin 5 mg capsule 5 mg PO HS ipratropium-albuterol 0.5 mg-3 mg(2.5 mg base)/3 mL solution for nebulization 3 ml INHALATION Q6H PRN tramadol 50 mg tablet 50 mg PO DAILY PRN nystatin [Nystop] 100,000 unit/gram powder 1 applic TOPICAL DAILY amlodipine [Norvasc] 10 MG tablet 10 mg PO DAILY albuterol sulfate [Ventolin HFA] 8 GM HFA aerosol inhaler 2 puff Inhalation Q4H PRN B-12 Compliance 1,000 MCG/ML kit 1,000 mcg IM DIRECTED Patient Comments: monthly potassium chloride 10 mEq tablet extended release 10 meq PO DAILY bupropion HCl 300 mg tablet extended release 24 hr 300 mg PO DAILY metoprolol tartrate 50 mg tablet 50 mg PO BID citalopram 20 mg tablet 20 mg PO DAILY Discontinued prednisone 20 mg tablet 20 mg PO DAILY Rx Instructions: x 5 days, started 08/10/25 levofloxacin 750 mg tablet 750 mg PO DAILY Rx Instructions: x 5 days, started 08/10/25 Discharge Instructions Instructions: Chronic Obstructive Pulmonary Disease (COPD) (DC), Benzonatate, Guaifenesin, Prednisone Additional Instructions: Discharge Instructions: * Continue prescribed medications. * Follow-up with primary care and pulmonology as needed. * Monitor oxygen saturation and continue supplemental oxygen as directed. * Keep follow-up appointments for management of COPD, heart failure, and other chronic conditions. * Return to the ER or call if symptoms worsen, such as fever, increased shortness of breath, or chest pain. Stand Alone Forms: Nursing Discharge Form Activity:: Activity as Tolerated Equipment/Supplies:: No Equipment Needed Diet:: As Tolerated Discharge Orders Discharge Orders: Discharge Order (Routine); Ordered 08/12/25 Ordered By: Paige Sarabia DS: Summary Time Spent with Patient providing and/or coordinating discharge services: Greater than 30 minutes Status at Discharge Functional status at discharge: uses cane/walker Overall status at discharge: patient is back to baseline Mental Status: mental status grossly normal Speech and Movement: speech and movement normal Mood: congruent mood Affect: normal affect Quality:SDOH Health Related Social Needs: Health related social needs lonely/isolated Health related social needs details Reports that it is off/on. Health related social needs details: Reports that it is off/on. Exam Narrative Exam Narrative: General: * Alert and oriented x3. Appears stated age. Normal body habitus. Head/Eyes: * Normocephalic, no trauma. * Pupils equal, round, reactive to light * EOMs intact. Red reflex noted. ENT: * No nasal discharge. * Normal dentition, posterior pharynx WNL, no exudate. Cardiovascular: * Regular rate and rhythm (RRR). Normal S1, S2. * Distal pulses intact. Respiratory: * Lungs clear to auscultation bilaterally. No wheezes or rales. Abdomen: * Soft, non-distended. Normoactive bowel sounds. Musculoskeletal: * Moves extremities without difficulty. * Left upper extremity tender with abduction (rotator cuff injury). Neurologic: * Cranial nerves II-XII intact. * Sensory and motor functions intact bilaterally. * Some slurred speech, resolving. Skin: * No rashes or lesions. Capillary refill < 2 seconds. Hematologic/Lymphatic: * No ecchymosis or lymphadenopathy. Psych Mental Status: mental status grossly normal Speech and Movement: speech and movement normal Mood: congruent mood Affect: normal affect DS: Data Vitals/I&O Vitals and I&O: Vital Signs Temperature 36.6 C 08/12/25 11:54 Temperature Source Temporal Artery Scan 08/12/25 11:54 Pulse 74 08/12/25 11:54 Pulse Rhythm Regular 08/10/25 17:25 Pulse 81 08/10/25 16:50 Respiratory Rate 16 08/12/25 11:54 Respiratory Effort Short of Breath, Labored, Incrsd Work of Breathing 08/10/25 17:25 Respiratory Depth Normal 08/10/25 17:25 Respiratory Pattern Normal 08/10/25 17:25 Blood Pressure 109/67 08/12/25 11:54 Blood Pressure Mean 81 08/12/25 11:54 Blood Pressure Position Supine 08/10/25 13:35 Pulse Oximetry 91 L 08/12/25 11:54 Oxygen Delivery Method Room Air 08/12/25 11:54 Oxygen Flow Rate 0 08/12/25 11:54 Pain Level 0 08/12/25 11:54 Comment Pt just has fallen asleep within the last hour or 2, pt has persistent cough at night. Pt refused vitals, [employer] will get vitals when pt wakes. Nurse notified. 08/12/25 04:12 Intake & Output 08/11/25 08/12/25 08/12/25 23:59 11:59 23:59 Intake Total 740 / 990 700 / 700 Output Total 150 / 150 300 / 300 Balance 590 / 840 400 / 400 Weight 88 kg Intake: IV 250 / 250 Oral 490 / 740 700 / 700 Output: Urine 150 / 150 300 / 300 Other: Urine Color Light Marion Yellow Urine Appearance Clear Clear Urine Odor Strong Comment Pt voids an immeasurable amount into the commode. large void Stool Size Smear Smear Stool Characteristics Formed Brown Brown Data Completed and Pending Pending Labs at Discharge: 08/10/25 08/10/25 08/10/25 13:44 14:00 14:41 WBC 18.54 H RBC 4.22 Hgb 11.1 L Hct 35.7 L MCV 85 MCH 26.3 L MCHC 31.1 L RDW 15.2 H Plt Count 398 MPV 9.5 Immature Gran % 0.5 Neutrophils % 88.3 Lymphocytes % 8.1 Monocytes % 2.5 Eosinophils % 0.2 Basophils % 0.4 Nucleated RBC % 0.0 Absolute Neutrophils 16.37 H Absolute Lymphocytes 1.50 Absolute Monocytes 0.46 Absolute Eosinophils 0.04 Absolute Basophils 0.07 Sodium 137 Potassium 3.5 Chloride 102 Carbon Dioxide 25.7 Anion Gap 9.3 BUN 11 Creatinine 0.54 L Est GFR (CKD-EPI 2020) 107.84 Glucose 142 H Calcium 8.8 Magnesium 1.8 Total Bilirubin 0.4 AST 12 ALT 9 L Alkaline Phosphatase 150 H Troponin I < 3 Cancelled NT-Pro-B Natriuret Pep 208 Total Protein 7.3 Albumin 4.2 Procalcitonin < 0.10 COVID-19 Source Nasopharynx SARS-CoV-2 (PCR) Negative Influenza Type A (PCR) Negative Influenza Type B (PCR) Negative RSV (PCR) Negative 08/10/25 08/11/25 16:41 06:05 WBC 12.04 H RBC 4.06 Hgb 10.8 L Hct 34.9 L MCV 86 MCH 26.6 L MCHC 30.9 L RDW 15.3 H Plt Count 402 H MPV 9.9 Immature Gran % 0.4 Neutrophils % 66.9 Lymphocytes % 22.5 Monocytes % 9.5 Eosinophils % 0.4 Basophils % 0.3 Nucleated RBC % 0.0 Absolute Neutrophils 8.05 H Absolute Lymphocytes 2.71 Absolute Monocytes 1.14 H Absolute Eosinophils 0.05 Absolute Basophils 0.04 Sodium 140 Potassium 3.7 Chloride 103 Carbon Dioxide 28.0 Anion Gap 9 BUN 10 Creatinine 0.55 Est GFR (CKD-EPI 2020) 105.58 Glucose 96 Calcium 9.3 Magnesium Total Bilirubin AST ALT Alkaline Phosphatase Troponin I Cancelled NT-Pro-B Natriuret Pep Total Protein Albumin Procalcitonin COVID-19 Source SARS-CoV-2 (PCR) Influenza Type A (PCR) Influenza Type B (PCR) RSV (PCR) Preliminary micro results at discharge 08/10/25 18:41 Sputum Sputum Culture - Preliminary Normal Fiona PFSH All Active Problems (Updated 08/10/25 @ 18:18 by Arline Robison APRN) Heart failure with mildly reduced ejection fraction (HFmrEF) (Acute) Sepsis (Acute) Nausea (Acute) Acute hypoxic respiratory failure (Acute) Periprosthetic fracture of proximal end of femur (Acute) COPD exacerbation (Acute) Community acquired pneumonia (Acute) Respiratory failure (Acute) Former cigarette smoker (Acute) Urinary incontinence (Acute) Polyosteoarthritis (Acute) Unspecified macular degeneration (Acute) Encounter for immunization (Acute) Allergic rhinitis due to animal (cat) (dog) hair and dander (Acute) Localized edema (Acute) Cough (Acute) Shortness of breath (Acute) Vascular dementia without behavioral disturbance (Acute) Cognitive communication deficit (Acute) Chronic combined systolic and diastolic heart failure (Acute) Irritable bowel syndrome with diarrhea (Acute) Major depressive disorder with single episode (Acute) Sprain of left upper arm (Acute) Head injury (Acute) Laceration of scalp (Acute) Removal of crystal (Acute) ASHD (arteriosclerotic heart disease) (Chronic) Lone atrial fibrillation (Acute) Atrial fibrillation (Chronic) NSTEMI (non-ST elevated myocardial infarction) (Acute) Coronary artery disease (Chronic) Dyslipidemia (Chronic) Hypertension (Chronic) Tobacco abuse (Chronic) Frequent headaches (Chronic) Colon polyps (Chronic) GERD (gastroesophageal reflux disease) (Chronic) Fibrocystic breast changes (Chronic) Osteoarthritis (Chronic) Depression (Chronic) Memory loss (Chronic) Insomnia (Chronic) PTSD (post-traumatic stress disorder) (Chronic) Seasonal allergies (Chronic) Chronic pain (Chronic) Fibromyalgia (Chronic) Vitamin B 12 deficiency (Chronic) COPD (chronic obstructive pulmonary disease) (Chronic) Medical History Pneumonia Hx of falling Bronchitis Adenocarcinoma of endometrium Other chronic pain fibromyalgia Hyperlipidemia Anxiety Benign hypertension Wrist fracture, right Surgical History Replacement of total knee joint (02/07/08) right Total replacement of hip (09/11/08) left hip, right hip, right ANGELINA revision femoral stem with open reduction and internal fixation of periprosthetic fracture with cerclage cables. Total replacement of hip (09/04/08) left hip, right hip, right ANGELINA revision femoral stem with open reduction and internal fixation of periprosthetic fracture with cerclage cables. Total replacement of hip (03/26/01) left hip, right hip, right ANGELINA revision femoral stem with open reduction and internal fixation of periprosthetic fracture with cerclage cables. Hyseterectomy, Total Laparoscopic w/ BSO Social History Smoking/Tobacco Use Status: Former Tobacco Use Quit Date: 05/01/16 Smoking risk assessment performed?: Yes Alcohol Intake: never Drug use: Never Substance use type: does not use Housing: [facility] Do you feel safe at home: Yes Do you feel safe in your relationship?: Yes Additional Social history: from [place], moved into [facility] in 2021 Time Spent with Patient Time Spent with Patient: 45-69 minutes Time was spent: preparing to see the patient(eg.review tests), ordering medications,tests, procedures, referring, communicating with other health personal care service provider, indepentently interpreting results, counseling the patient and care coordination
[2025-08-12] MEDS: Azithromycin 250 MG TAB 500 MG PO (13:24)
--- NOTE | 2025-08-12 13:50 | PDOC.CMDIS ---
Date of service: 08/12/25 Time of Service: 13:50 LACE Index Scoring Tool Questions: Length of Stay (in days): 2 Was the patient admitted via the E.D.?: Yes Comorbidities: Previous M.I., Congestive Heart Failure, Chronic Pulmonary Disease, Any Tumor and Dementia E.D. Visits: 3 Answers: Total Score: 13 Risk of Readmission: High Risk Care Management Discharge Plan Reason for Hospitalization: COPD Discharge Plan: Danette will return to the [facility] where she resides. She will follow up with the facility providers and plan of care and transport via RCT. Patient/Family Education Needs: Review discharge instructions, discuss Ask Me Three Services Needed at Discharge: Assisted Facility and Transportation SDOH Health Related Social Needs: Health related social needs lonely/isolated Health related social needs details Reports that it is off/on. Health related social needs details: Reports that it is off/on.
== END 2025-08-12 14:43 | disposition skilled nursing facility (03) | DRG 871 ==
LOC: ER 15:46 → MS 17:33
PROVIDERS: Nurse Practitioner Acute Care; Admitting Provider Family Medicine; Emergency Provider Emergency Medicine; PCP Legal Medicine; Responsible Provider Nurse Practitioner Family; Visit Provider Family Medicine
DX: A41.9 Sepsis, unspecified organism (principal); J96.01 Acute respiratory failure with hypoxia; J44.1 Chronic obstructive pulmonary disease with (acute) exacerbation; I48.0 Paroxysmal atrial fibrillation; R11.0 Nausea; E78.5 Hyperlipidemia, unspecified; I11.0 Hypertensive heart disease with heart failure; F41.9 Anxiety disorder, unspecified; I50.22 Chronic systolic (congestive) heart failure; Z79.01 Long term (current) use of anticoagulants; D72.829 Elevated white blood cell count, unspecified; Z87.891 Personal history of nicotine dependence; R32 Unspecified urinary incontinence; M15.9 Polyosteoarthritis, unspecified; I25.2 Old myocardial infarction; I25.10 Atherosclerotic heart disease of native coronary artery without angina pectoris; K58.0 Irritable bowel syndrome with diarrhea; F01.50 Vascular dementia, unspecified severity, without behavioral disturbance, psychotic disturbance, mood disturbance, and anxiety; G47.00 Insomnia, unspecified; F43.10 Post-traumatic stress disorder, unspecified; E53.8 Deficiency of other specified B group vitamins; G89.29 Other chronic pain; Z96.643 Presence of artificial hip joint, bilateral; Z66 Do not resuscitate
CPT/HCPCS: 00123; 36415; 80048; 80053; 84145; 87637; 93005; 94640; 96365; 99285; 71046; 83735; 83880; 84484; 85025; 87070; 87205; 93010; 94664; 94760; 99223; 99233; 99239; G0378; J0456; J0696; J0780; J7512; J7620